=== PATIENT | male | born 1960 | race Caucasian/White ===

== ENCOUNTER 2017-02-19 09:15 | Emergency (ER) | payer MEDICARE, OTHER ==
[2017-02-19] MEDS ORDERED: SODIUM CHLORIDE 0.9% 500 ML IV ONE (09:27)
[2017-02-19] MEDS ORDERED: diphenhydrAMINE 50 MG/ML 1 ML VIAL IVP STA (09:27)
[2017-02-19] MEDS ORDERED: ONDANSETRON 4 MG/2 ML VIAL IVP STA (09:27)
[2017-02-19] MEDS ORDERED: KETOROLAC 30 MG/ML 1 ML VIAL IVP STA (09:27)
--- NOTE | 2017-02-19 09:50 | ED ---
General Adult HPI - General Chief complaint: Headache Stated complaint: headache Time Seen by Provider: 02/19/17 09:21 Source: patient, RN notes reviewed Mode of arrival: wheelchair Limitations: no limitations - History of Present Illness Initial comments: 56-year-old male presents emergency Department chief complaint severe headache 3 days. Patient states she's been having ongoing headache over the last 3 years worse does not 3 last 2 days. He states his right sided complete visit behind his right eye. Denies any visual changes. Denies any pain with ocular movements. Patient states she is photophobic and has some nausea no vomiting no diarrhea no constipation or fevers no chills. Patient states she also has slight cough and right-sided chest wall pain. Patient has no palpitations. Denies any focal weakness. Patient denies any neck pain or neck stiffness. - Related Data Home Medications Medication Instructions Recorded Confirmed Albuterol Nebulized [Ventolin 2.5 mg INHALATION RT-TID PRN 11/21/15 07/05/16 Nebulized] Allopurinol [Zyloprim] 100 mg PO DAILY 11/21/15 07/05/16 Allopurinol [Zyloprim] 300 mg PO DAILY 11/21/15 07/05/16 Aspirin EC [Ecotrin] 81 mg PO DAILY 11/21/15 07/05/16 Atenolol [Tenormin] 100 mg PO DAILY 11/21/15 07/05/16 Cholecalciferol [Vitamin D3] 1,000 unit PO DAILY 11/21/15 07/05/16 Furosemide [Lasix] 40 mg PO DAILY 11/21/15 07/05/16 HYDROcodone/APAP 10-325MG [[place] 1 tab PO Q4HR PRN 11/21/15 07/05/16 10-325] Nitroglycerin Sl Tabs [Nitrostat] 0.4 mg SUBLINGUAL Q5M PRN 11/21/15 07/05/16 hydrALAZINE HCL [Apresoline] 50 mg PO BID 11/21/15 07/05/16 Cyclobenzaprine [Flexeril] 10 mg PO HS 02/06/16 07/05/16 clonazePAM [KlonoPIN] 1 mg PO BID 02/06/16 07/05/16 oxyCODONE HCL 40 mg PO Q8H 02/06/16 07/05/16 Previous Rx's Medication Instructions Recorded Famotidine [Pepcid] 20 mg PO BID #20 tablet 02/06/16 diphenhydrAMINE [Benadryl] 1 - 2 tab PO Q6HR PRN #30 capsule 02/06/16 Butalb/APAP/Caff 50-325-40Mg 1 tab PO Q4H PRN #10 tablet 02/19/17 [Fioricet 50-325-40] Allergies Allergy/AdvReac Type Severity Reaction Status Date / Time No Known Allergies Allergy Verified 02/19/17 09:20 Review of Systems ROS Statement: Those systems with pertinent positive or pertinent negative responses have been documented in the HPI. ROS Other: All systems not noted in ROS Statement are negative. Past Medical History Past Medical History: Chest Pain / Angina, COPD, GERD/Reflux, Hypertension, Myocardial Infarction ([place]), Osteoarthritis (OA) Additional Past Medical History / Comment(s): HX OF HEPATITIS A, CHRONIC PAIN, GOUT, STATES KIDNEYS SHUT DOWN X2 WHEN SICK. Last Myocardial Infarction Date:: ?1999 History of Any Multi-Drug Resistant Organisms: MRSA Date of last positivie culture/infection: 12/2015 MDRO Source:: THERESA LEG Past Surgical History: Heart Catheterization With Stent, Hernia Repair, Orthopedic Surgery Additional Past Surgical History / Comment(s): SHOULDER SX, HERNIA ( A CHILD) , CATARACTS , PAIN CLINIC PROCEDURES. Past Anesthesia/Blood Transfusion Reactions: No Reported Reaction Date of Last Stent Placement:: 1999? Past Psychological History: No Psychological Hx Reported Smoking Status: Former smoker Past Alcohol Use History: Occasional Past Drug Use History: None Reported - Past Family History Mother Family Medical History: Cancer, Myocardial Infarction ([place]) Father Family Medical History: Myocardial Infarction ([place]) Sister(s) Family Medical History: Cancer Additional Family Medical History / Comment(s): SISTERS X2 General Exam Limitations: no limitations General appearance: alert, in no apparent distress Head exam: Present: atraumatic, normocephalic, normal inspection Eye exam: Present: normal appearance, PERRL, EOMI. Absent: scleral icterus, conjunctival injection, periorbital swelling, other (Abrasion noted on the right upper periorbital on the medial aspect) Pupils: Present: other (Wood's lamp and diarrhea used to evaluate the right eye there is no foreign body no abrasions) Expanded Pupils: Regular, Round: Bilateral Sclera/Conjunctival: Normal Inspection: Bilateral Anterior chamber: Normal Inspection: Bilateral IOP (R) in mmH IOP (L) in mmH IOP measured with: [employer] ENT exam: Present: normal exam, normal oropharynx, mucous membranes moist, TM's normal bilaterally, normal external ear exam Neck exam: Present: normal inspection, full ROM. Absent: tenderness, meningismus, lymphadenopathy Respiratory exam: Present: normal lung sounds bilaterally. Absent: respiratory distress, wheezes, rales, rhonchi, stridor Cardiovascular Exam: Present: regular rate, normal rhythm, normal heart sounds. Absent: systolic murmur, diastolic murmur, rubs, gallop, clicks Neurological exam: Present: alert, oriented X3, CN II-XII intact, reflexes normal. Absent: motor sensory deficit Skin exam: Present: warm, dry, intact, normal color. Absent: rash Course Vital Signs 02/19/17 09:17 Temperature 97.3 F L Pulse Rate 61 Respiratory 18 Rate Blood Pressure 182/85 O2 Sat by Pulse 98 Oximetry EKG Findings - EKG Comments: EKG Findings:: EKG 9:35 sinus bradycardia with a rate of 59 [place] interval 164 QRS duration 106 QT/QTC 432/427 Medical Decision Making - Medical Decision Making 56-year-old male presented for multiple complaints. Primary complaint of headache that has been crying for 3 years worse last [address] does not show an acute changes. Patient came of pressure behind his right eye and there is no evidence of abrasions or increased intraocular pressure/glaucoma. Patient may be having a migraine headache will follow-up neurology. Patient also complained of chest wall pain which is slightly reproducible there is no evidence of PE or any cardiac problems at this time. Patient will be discharged with close follow-up - Lab Data Result diagrams: 02/19/17 09:43 02/19/17 09:43 Lab Results 02/19/17 02/19/17 02/19/17 Range/Units 09:43 09:43 09:43 WBC 7.2 (3.8-10.6) k/uL RBC 4.27 L (4.30-5.90) m/uL Hgb 13.9 (13.0-17.5) gm/dL Hct 41.0 (39.0-53.0) % MCV 96.0 (80.0-100.0) fL MCH 32.6 (25.0-35.0) pg MCHC 34.0 (31.0-37.0) g/dL RDW 14.3 (11.5-15.5) % Plt Count 234 (150-450) k/uL Neutrophils % 53 % Lymphocytes % 38 % Monocytes % 4 % Eosinophils % 2 % Basophils % 1 % Neutrophils # 3.8 (1.3-7.7) k/uL Lymphocytes # 2.7 (1.0-4.8) k/uL Monocytes # 0.3 (0-1.0) k/uL Eosinophils # 0.2 (0-0.7) k/uL Basophils # 0.0 (0-0.2) k/uL Sodium 139 (137-145) mmol/L Potassium 3.7 (3.5-5.1) mmol/L Chloride 104 (98-107) mmol/L Carbon Dioxide 28 (22-30) mmol/L Anion Gap 7 mmol/L BUN 5 L (9-20) mg/dL Creatinine 0.68 (0.66-1.25) mg/dL Est GFR (MDRD) Af Amer >60 (>60 ml/min/1.73 sqM) Est GFR (MDRD) Non-Af >60 (>60 ml/min/1.73 sqM) Glucose 110 H (74-99) mg/dL Calcium 8.7 (8.4-10.2) mg/dL Total Bilirubin 0.3 (0.2-1.3) mg/dL AST 18 (17-59) U/L ALT 28 (21-72) U/L Alkaline Phosphatase 75 (38-126) U/L Troponin I <0.012 (0.000-0.034) ng/mL Total Protein 6.2 L (6.3-8.2) g/dL Albumin 3.5 (3.5-5.0) g/dL Disposition Clinical Impression: Migraine, Chest wall pain Disposition: HOME SELF-CARE Condition: Stable Instructions: Acute Headache (ED), Costochondritis (ED) Additional Instructions: Please return to the Emergency Department if symptoms worsen or any other concerns. Prescriptions: Butalb/APAP/Caff 50-325-40Mg [Fioricet 50-325-40] 1 tab PO Q4H PRN #10 tablet PRN Reason: Headache Referrals: Des Prince MD [Primary Care Provider] - 1-2 days Rubina Hannon MD [STAFF PHYSICIAN] - 1-2 days Time of Disposition: 11:17
--- NOTE | 2017-02-19 10:01 | CT ---
EXAMINATION TYPE: CT brain wo con DATE OF EXAM: 02/19/2017 COMPARISON: 12/10/2013 HISTORY: Severe headache CT DLP: [address] of the brain was performed. The ventricles, basal cisterns and sulci overlying the cerebral convexities demonstrate mild enlargem ent. There is no evidence for intracranial hemorrhage or sulcal effacement. There is decreased attenuation about the periventricular white matter and deep white matter of both c erebral hemispheres, compatible with chronic small vessel ischemia. Differential diagnosis does inclu de demyelination. No mass effects are seen.No midline shift. Osseous calvarium is intact. If symptoms persist consider MRI. IMPRESSION: 1. Age related atrophic and chronic small vessel ischemic change without acute intracranial process s een at this time.
[2017-02-19 10:03] LABS: Basophils % (A) 1 %; CH 32.2; CHCM 33.7; Eosinophils # (A) 0.2 k/uL (0-0.7); Eosinophils % (A) 2 %; HDW 2.78; HGB 13.9 gm/dL (13.0-17.5); Luc # (Auto) 0.17; Luc % (Auto) 2; Lymphocytes # (A) 2.7 k/uL (1.0-4.8); Lymphocytes % (A) 38 %; MCH 32.6 pg (25.0-35.0); Mean Platelet Volume 8.9; Monocytes # (A) 0.3 k/uL (0-1.0); Monocytes % (A) 4 %; Neutrophils # (A) 3.8 k/uL (1.3-7.7); Neutrophils % (A) 53 %; RBC 4.27 m/uL (4.30-5.90); RDW 14.3 % (11.5-15.5); WBC 7.2 k/uL (3.8-10.6); WBC (Perox) 6.77
[2017-02-19 10:07] LABS: ALT 28 U/L (21-72); AST 18 U/L (17-59); Alkaline Phosphatase 75 U/L (38-126); Anion Gap 7 mmol/L; Blood Urea Nitrogen 5 mg/dL (9-20); Calcium 8.7 mg/dL (8.4-10.2); Carbon Dioxide 28 mmol/L (22-30); Chloride 104 mmol/L (98-107); Glucose 110 mg/dL (74-99); Non-African American GFR(MDRD) >60 (>60 ml/min/1.73 sqM); Potassium 3.7 mmol/L (3.5-5.1); Sodium 139 mmol/L (137-145); Total Bilirubin 0.3 mg/dL (0.2-1.3); Total Protein 6.2 g/dL (6.3-8.2)
--- NOTE | 2017-02-19 10:12 | XR ---
EXAMINATION TYPE: XR chest 2V DATE OF EXAM: 02/19/2017 COMPARISON: Prior chest x-ray 11/23/2015 HISTORY: Headache, pain TECHNIQUE: Frontal and lateral views of the chest are obtained. FINDINGS: There is no focal air space opacity, pleural effusion, or pneumothorax seen. The cardiac silhouette size is stable. Interval removal of patient's right jugular central venous catheter. There are overlying cardiac leads. The osseous structures are intact. IMPRESSION: No acute cardiopulmonary process.
[2017-02-19] MEDS ORDERED: RX INFO: IV CONTRAST WAS GIVEN 1 EACH MISC MISCELLANE PRN (10:27)
--- NOTE | 2017-02-19 11:11 | CT ---
EXAMINATION TYPE: CT chest angio for PE DATE OF EXAM: 02/19/2017 COMPARISON: NONE HISTORY: Chest pains and trouble breathing CT DLP: 397.8 mGycm CONTRAST: CT chest with contrast and 3D reconstruction with MIP imaging is performed with IV Contrast, patient injected with 100 mL of Omnipaque 300. Contrast-enhanced CT of the chest was performed through the course of the pulmonary arteries with frantz g and mediastinal window settings submitted. 3D reconstruction with MIP imaging was also performed. PULMONARY ARTERIES: The pulmonary arteries and their major tributaries are patent. I do not see isaias dence for sizable filling defect to suggest pulmonary embolic process. LUNGS: The lungs are clear and free of infiltrate. No evidence for atelectasis. No pulmonary nodule or mass is detected. No pleural effusion. MEDIASTINUM: Thoracic aorta is of normal caliber . The heart is not enlarged. No evidence for media stinal mass. No mediastinal lymph nodes greater than 1cm. HILAR STRUCTURES: No evidence for mass. No hilar lymph nodes greater than 1 cm. UPPER ABDOMEN: No significant abnormality is seen. IMPRESSION: 1. No evidence for Pulmonary embolism at this time.
[2017-02-19 11:29] VITALS: TEMP 97.7
[2017-02-19 11:53] VITALS: BP 144/67; PULSE 55; RESP 17
== END 2017-02-19 11:50 | disposition home or self-care (01) ==
LOC: EC 09:15
DX: G43.909 Migraine, unspecified, not intractable, without status migrainosus (principal); R07.89 Other chest pain; I10 Essential (primary) hypertension; M19.90 Unspecified osteoarthritis, unspecified site; M10.9 Gout, unspecified; Z87.891 Personal history of nicotine dependence; Z95.5 Presence of coronary angioplasty implant and graft; Z79.891 Long term (current) use of opiate analgesic; Z79.82 Long term (current) use of aspirin; Z79.899 Other long term (current) drug therapy
CPT/HCPCS: 36415; 93005; 80053; 84484; 85025; 71020; 70450; 71275; 99284; 96374; 96375 ×2; 96361; J1200; J2405; J1885; Q9967

== ENCOUNTER 2017-03-25 13:23 | Emergency (ER) | payer MEDICARE, OTHER ==
[2017-03-25 13:39] VITALS: BP 123/60; PULSE 55; RESP 18; TEMP 97.9
--- NOTE | 2017-03-25 14:05 | ED ---
General Adult HPI - General Chief complaint: Extremity Injury, Lower Stated complaint: Ankle Injury Time Seen by Provider: 03/25/17 13:40 Source: patient, RN notes reviewed Mode of arrival: wheelchair Limitations: no limitations - History of Present Illness Initial comments: 56 yo male presents to the ER with cc of left ankle pain after a fall on . He states he went for an xray that was positive so he came here for a splint. he states he was given follow up to ortho but he would liekt o schedule his own appointment. He states he has a cane at home he can walk with. he denies hell pain. he states it is swollen and tender over the outside. patient denies any other injury from the incident. Patient denies any recent fever, chills, shortness of breath, chest pain, back pain, abdominal pain, nausea vomiting, numbness or tingling, dysuria or hematuria, constipation or diarrhea, headaches or visual changes, or any other current symptoms. - Related Data Home Medications Medication Instructions Recorded Confirmed Albuterol Nebulized [Ventolin 2.5 mg INHALATION RT-TID PRN 11/21/15 07/05/16 Nebulized] Allopurinol [Zyloprim] 100 mg PO DAILY 11/21/15 07/05/16 Allopurinol [Zyloprim] 300 mg PO DAILY 11/21/15 07/05/16 Aspirin EC [Ecotrin] 81 mg PO DAILY 11/21/15 07/05/16 Atenolol [Tenormin] 100 mg PO DAILY 11/21/15 07/05/16 Cholecalciferol [Vitamin D3] 1,000 unit PO DAILY 11/21/15 07/05/16 Furosemide [Lasix] 40 mg PO DAILY 11/21/15 07/05/16 HYDROcodone/APAP 10-325MG [[place] 1 tab PO Q4HR PRN 11/21/15 07/05/16 10-325] Nitroglycerin Sl Tabs [Nitrostat] 0.4 mg SUBLINGUAL Q5M PRN 11/21/15 07/05/16 hydrALAZINE HCL [Apresoline] 50 mg PO BID 11/21/15 07/05/16 Cyclobenzaprine [Flexeril] 10 mg PO HS 02/06/16 07/05/16 clonazePAM [KlonoPIN] 1 mg PO BID 02/06/16 07/05/16 oxyCODONE HCL 40 mg PO Q8H 02/06/16 07/05/16 Previous Rx's Medication Instructions Recorded Famotidine [Pepcid] 20 mg PO BID #20 tablet 02/06/16 diphenhydrAMINE [Benadryl] 1 - 2 tab PO Q6HR PRN #30 capsule 02/06/16 Butalb/APAP/Caff 50-325-40Mg 1 tab PO Q4H PRN #10 tablet 02/19/17 [Fioricet 50-325-40] Allergies Allergy/AdvReac Type Severity Reaction Status Date / Time No Known Allergies Allergy Verified 03/25/17 13:39 Review of Systems ROS Statement: Those systems with pertinent positive or pertinent negative responses have been documented in the HPI. ROS Other: All systems not noted in ROS Statement are negative. Past Medical History Past Medical History: Chest Pain / Angina, COPD, GERD/Reflux, Hypertension, Myocardial Infarction ([place]), Osteoarthritis ([place]) Additional Past Medical History / Comment(s): HX OF HEPATITIS A, CHRONIC PAIN, GOUT, STATES KIDNEYS SHUT DOWN X2 WHEN SICK. Last Myocardial Infarction Date:: ?1999 History of Any Multi-Drug Resistant Organisms: MRSA Date of last positivie culture/infection: 12/2015 MDRO Source:: THERESA LEG Past Surgical History: Heart Catheterization With Stent, Hernia Repair, Orthopedic Surgery Additional Past Surgical History / Comment(s): SHOULDER SX, HERNIA ( A CHILD) , CATARACTS , PAIN CLINIC PROCEDURES. Past Anesthesia/Blood Transfusion Reactions: No Reported Reaction Date of Last Stent Placement:: 1999? Past Psychological History: No Psychological Hx Reported Smoking Status: Former smoker Past Alcohol Use History: Occasional Past Drug Use History: None Reported - Past Family History Mother Family Medical History: Cancer, Myocardial Infarction ([place]) Father Family Medical History: Myocardial Infarction ([place]) Sister(s) Family Medical History: Cancer Additional Family Medical History / Comment(s): SISTERS X2 General Exam - General Exam Comments Initial Comments: General: The patient is awake and alert, in no distress, and does not appear acutely ill. Neck: The neck is supple, there is no tenderness or JVD. Cardiovascular: There is a regular rate and rhythm. No murmur, rub or gallop is appreciated. Respiratory: Lungs are clear to auscultation, respirations are non-labored, breath sounds are equal. No wheezes, stridor, rales, or rhonchi. Musculoskeletal: sensation intact with 2+ pulses throughout left lower extremity. full range of motion of ankle and knee. no proximal tib fib tenderness. swelling and pain over lateral malleolus. no calcaneal tenderness or tenderness throughout the foot. Neurological: CN II-XII intact, There are no obvious motor or sensory deficits. Coordination appears grossly intact. Speech is normal. Skin: Skin is warm and dry and no rashes or lesions are noted. Psychiatric: Normal mood and affect. Limitations: no limitations Course Vital Signs 03/25/17 13:36 Temperature 97.9 F Pulse Rate 55 L Respiratory 18 Rate Blood Pressure 123/60 O2 Sat by Pulse 99 Oximetry Procedures - Orthopedic Splinting/Casting Injury #1 Side: left Lower Extremity Injury Location: ankle Lower Extremity Immobilizer: stirrup splint (short leg) Medical Decision Making - Medical Decision Making 56 yo male presents with left ankle fracture. he was placed in a splint her after reviewing outpatient xrays. we discussed care follow up and return parameters. patient in agreement with plan all questions answered. patient will be discharge. - Radiology Data Radiology results: report reviewed, image reviewed Disposition Clinical Impression: Fracture of lateral malleolus of left ankle Disposition: HOME SELF-CARE Condition: Stable Instructions: Ankle Fracture (ED) Additional Instructions: Please use medication as discussed. Please follow up with family doctor if symptoms have not improved over the next two days. Please return to the emergency room if your symptoms increase or worsen or for any other concerns. Referrals: Des Prince MD [Primary Care Provider] - 1-2 days Scar Almonte MD [STAFF PHYSICIAN] - 1-2 days Time of Disposition: 14:05
== END 2017-03-25 14:17 | disposition home or self-care (01) ==
LOC: EC 13:23
DX: S82.62XA Displaced fracture of lateral malleolus of left fibula, initial encounter for closed fracture (principal); I10 Essential (primary) hypertension; G89.29 Other chronic pain; I25.2 Old myocardial infarction; Z87.891 Personal history of nicotine dependence; Z79.82 Long term (current) use of aspirin; Z79.891 Long term (current) use of opiate analgesic; Z79.899 Other long term (current) drug therapy; Z86.79 Personal history of other diseases of the circulatory system; W19.XXXA Unspecified fall, initial encounter
CPT/HCPCS: 29515; 99283

== ENCOUNTER → 2017-03-25 | Outpatient (CLI) | payer MEDICARE, OTHER ==
--- NOTE | 2017-03-25 12:36 | XR ---
EXAMINATION TYPE: XR ankle complete LT DATE OF EXAM: 03/25/2017 COMPARISON: NONE HISTORY: Pain FINDINGS: Three views of the ankle demonstrate the ankle mortise to be intact and symmetric. There is soft tiss ue edema and mildly displaced fracture involving the lateral malleolus. The lateral view there is a b genie density along the base of the anterior calcaneus which could represent additional chip fracture. IMPRESSION: 1. Mildly displaced lateral malleolar fracture. 2. Question of a additional chip fracture near the base of the calcaneus along the plantar surface an teriorly. This is seen on only one view. Correlate with point tenderness.
== END | disposition home or self-care (01) ==
LOC: RADXRMAIN 12:15
PROVIDERS: ATTEND Family Medicine
DX: S82.62XA Displaced fracture of lateral malleolus of left fibula, initial encounter for closed fracture (principal)

== ENCOUNTER → 2017-04-04 | Outpatient (CLI) | payer MEDICARE, OTHER ==
--- NOTE | 2017-04-04 16:09 | MR ---
EXAMINATION TYPE: MR brain wo con DATE OF EXAM: 04/04/2017 3:46 PM. COMPARISON: None. HISTORY: Headache Technique: Multiplanar, multiecho imaging of the brain was obtained without intravenous contrast. FINDINGS: Midline structures are unremarkable. There is a normal craniocervical junction. Echoplanar diffusion imaging is normal. There are normal vascular flow voids. The orbits are normal. There is no evidence of a CP angle mass lesion. There are several 2 to 5 mm high signal FLAIR lesions in the left frontal region there are scattered high signal lesions elsewhere throughout the brain. T here is no mass effect, midline shift or intracranial blood. There is a 2 cm retention cyst or polyp involving the left maxillary sinus. IMPRESSION: 1. NO ACUTE INTRACRANIAL ABNORMALITY. 2. RETENTION CYST OR POLYP, LEFT MAXILLARY ANTRUM. 3. SCATTERED CYSTS, TINY HIGH SIGNAL FLAIR LESIONS THROUGHOUT THE DEEP WHITE MATTER TRACTS OF THE CER EBRAL HEMISPHERES. THIS IS LIKELY ON THE BASIS OF SMALL VESSEL DISEASE. A DIFFERENTIAL DIAGNOSIS INCL UDES DEMYELINATION, HYPERTENSION, MIGRAINE HEADACHES AND LYME'S DISEASE.
== END | disposition home or self-care (01) ==
LOC: RADMRIMAIN 15:05
PROVIDERS: ATTEND Family Medicine
DX: G93.0 Cerebral cysts (principal); R90.89 Other abnormal findings on diagnostic imaging of central nervous system; R51 Headache
CPT/HCPCS: 70551

== ENCOUNTER 2017-04-09 11:50 | Emergency (ER) | payer MEDICARE, OTHER | END 2017-04-09 12:37 | disposition home or self-care (01) | LOC: EC 11:50 | DX: R21 Rash and other nonspecific skin eruption (principal); Z87.891 Personal history of nicotine dependence | CPT/HCPCS: 99282 ==

== ENCOUNTER 2017-04-21 21:09 | Inpatient (IN) | payer MEDICARE, OTHER ==
[2017-04-21] MEDS ORDERED: SODIUM CHLORIDE 0.9% 500 ML IV STA ×2 (21:41→23:33)
[2017-04-21] MEDS ORDERED: HYDROmorphone 1 MG/ML 1 ML SYRINGE IVP STA ×2 (21:41→23:28)
[2017-04-21] MEDS ORDERED: ONDANSETRON 4 MG/2 ML VIAL IVP STA (21:41)
[2017-04-21 22:24] LABS: Appearance,Urine Clear (Clear); Bilirubin,Urine Negative (Negative); Glucose,Urine (UA) Negative (Negative); Ketones,Urine Negative (Negative); Leukocyte Esterase,Urine Negative (Negative); Nitrite,Urine Negative (Negative); PH, Urine 5.5 (5.0-8.0); Protein,Urine Negative (Negative); Specific Gravity,Urine 1.015 (1.001-1.035); UA Billing (MACRO vs. MICRO) CHEM; Urobilinogen,Urine <2.0 mg/dL (<2.0)
[2017-04-21 22:31] LABS: Basophils % (A) 1 %; CH 31.1; CHCM 32.1; Eosinophils # (A) 0.2 k/uL (0-0.7); Eosinophils % (A) 2 %; HCT 42.2 % (39.0-53.0); HDW 2.48; Luc # (Auto) 0.05; Luc % (Auto) 1; Lymphocytes # (A) 1.9 k/uL (1.0-4.8); Lymphocytes % (A) 22 %; MCHC 30.8 g/dL (31.0-37.0); MCV 97.4 fL (80.0-100.0); Mean Platelet Volume 8.6; Monocytes # (A) 0.3 k/uL (0-1.0); Monocytes % (A) 3 %; Neutrophils # (A) 6.2 k/uL (1.3-7.7); Neutrophils % (A) 71 %; RBC 4.33 m/uL (4.30-5.90); RDW 14.3 % (11.5-15.5); WBC 8.6 k/uL (3.8-10.6); WBC (Perox) 9.31
[2017-04-21 22:41] LABS: ALT 39 U/L (21-72); AST 17 U/L (17-59); Alkaline Phosphatase 100 U/L (38-126); Anion Gap 9 mmol/L; Blood Urea Nitrogen 11 mg/dL (9-20); Calcium 8.7 mg/dL (8.4-10.2); Carbon Dioxide 23 mmol/L (22-30); Chloride 108 mmol/L (98-107); Glucose 89 mg/dL (74-99); Non-African American GFR(MDRD) >60 (>60 ml/min/1.73 sqM); Potassium 4.5 mmol/L (3.5-5.1); Sodium 140 mmol/L (137-145); Total Bilirubin 0.5 mg/dL (0.2-1.3); Total Protein 6.2 g/dL (6.3-8.2)
--- NOTE | 2017-04-21 22:51 | XR ---
EXAM: XR Abdomen, 1 View. CLINICAL HISTORY: Reason: abdominal pain TECHNIQUE: Frontal supine view of the abdomen/pelvis. COMPARISON: No relevant prior studies available. FINDINGS: Gastrointestinal tract: Unremarkable. No dilation. Bones: Unremarkable. No acute fracture. IMPRESSION: Normal abdomen and pelvis.
[2017-04-21 22:57] LABS: Creatine Kinase 21 U/L (55-170)
[2017-04-21 23:09] LABS: Creatine Kinase MB 0.4 ng/mL (0.0-2.4); Troponin I <0.012 ng/mL (0.000-0.034)
[2017-04-21] MEDS ORDERED: RX INFO: IV CONTRAST WAS GIVEN 1 EACH MISC MISCELLANE PRN (23:26)
--- NOTE | 2017-04-21 23:45 | ED ---
Abdominal Pain HPI - General Source: patient, EMS Mode of arrival: EMS Limitations: no limitations <Simona Roberto - Last Filed: 04/22/17 04:28> <Chris Fitch - Last Filed: 05/02/17 09:16> - General Chief Complaint: Abdominal Pain Stated Complaint: ABD PAIN Time Seen by Provider: 04/21/17 21:15 - History of Present Illness Initial Comments: 56-year-old male patient presented to emergency department today for complaints of upper abdominal pain. States he has had this pain for the last 2 days however it is worsened today. Patient states the pain is present in his upper abdomen and radiates through to his back. He states that he has never had pain like this before. Patient states that he has had a bowel movement for the last 2 days which is unusual for him. He states he does take chronic pain medication for lower back pain. He states the pain is sharp and severe. He states he does feel short of breath with this. He denies any nausea or vomiting. Denies any diarrhea. He is currently rating it as a 10 out of 10 on the pain scale. Patient does report blood in his stool. He states it is bright red, he is unable to quantify the amount. He states that this is been happening on and off for the last couple of months. Patient does report a past medical history significant for diverticulitis. Denies any falls or injuries. Patient denies any recent rash, fever, chills, shortness breath, chest pain, abdominal pain, nausea, vomiting, diarrhea, constipation, back pain, numbness, tingling, dizziness, weakness, hematuria, dysuria, urinary urgency, urinary frequency, headache, visual changes, or any other complaints. (Simona Roberto) - Related Data Home Medications Medication Instructions Recorded Confirmed Aspirin EC [Ecotrin Low Dose] 81 mg PO DAILY 11/21/15 04/21/17 Furosemide [Lasix] 40 mg PO DAILY 11/21/15 04/21/17 Nitroglycerin Sl Tabs [Nitrostat] 0.4 mg SUBLINGUAL Q5M PRN 11/21/15 04/21/17 hydrALAZINE HCL [Apresoline] 50 mg PO BID 11/21/15 04/21/17 clonazePAM [KlonoPIN] 1 mg PO BID 02/06/16 04/21/17 oxyCODONE HCL 40 mg PO Q6H 02/06/16 04/21/17 Albuterol Inhaler [Ventolin Hfa 1 - 2 puff INHALATION RT-Q6H PRN 04/21/17 Inhaler] Atenolol [Tenormin] 100 mg PO DAILY 04/21/17 04/21/17 Atorvastatin [Lipitor] 80 mg PO HS 04/21/17 04/21/17 Ibuprofen [Motrin] 800 mg PO BID 04/21/17 04/21/17 Previous Rx's Medication Instructions Recorded Amoxicillin/Potassium Clav 1 tab PO Q12HR #10 tab 04/26/17 [Augmentin 875-125 Tablet] Sucralfate [Carafate] 1 gm PO AC-TID #90 tab 04/26/17 Allergies Allergy/AdvReac Type Severity Reaction Status Date / Time No Known Allergies Allergy Verified 04/21/17 21:49 Review of Systems ROS Other: All systems not noted in ROS Statement are negative. <Simona Roberto - Last Filed: 04/22/17 04:28> ROS Other: All systems not noted in ROS Statement are negative. <Chris Fitch - Last Filed: 05/02/17 09:16> ROS Statement: Those systems with pertinent positive or pertinent negative responses have been documented in the HPI. Past Medical History Past Medical History: Chest Pain / Angina, COPD, GERD/Reflux, Hypertension, Myocardial Infarction ([place]), Osteoarthritis (OA) Additional Past Medical History / Comment(s): HX OF HEPATITIS A, CHRONIC PAIN, GOUT, STATES KIDNEYS SHUT DOWN X2 WHEN SICK. Last Myocardial Infarction Date:: ?1999 History of Any Multi-Drug Resistant Organisms: MRSA Date of last positivie culture/infection: 12/2015 MDRO Source:: THERESA LEG Past Surgical History: Heart Catheterization With Stent, Hernia Repair, Orthopedic Surgery Additional Past Surgical History / Comment(s): SHOULDER SX, HERNIA ( A CHILD) , CATARACTS , PAIN CLINIC PROCEDURES. Past Anesthesia/Blood Transfusion Reactions: No Reported Reaction Date of Last Stent Placement:: 1999? Past Psychological History: No Psychological Hx Reported Smoking Status: Former smoker Past Alcohol Use History: Occasional Past Drug Use History: None Reported - Past Family History Mother Family Medical History: Cancer, Myocardial Infarction ([place]) Father Family Medical History: Myocardial Infarction ([place]) Sister(s) Family Medical History: Cancer Additional Family Medical History / Comment(s): SISTERS X2 <Simona Roberto - Last Filed: 04/22/17 04:28> General Exam Limitations: no limitations General appearance: alert, in distress (Moderate distress related to pain. Patient is rolling around on the bed. Moaning out loud.), other (Well-developed , well-nourished adult male patient in moderate distress. Vital signs upon presentation were temperature 99.3F, pulse 74, respirations 16, blood pressure 173/70, pulse ox 96% on room air.) Eye exam: Present: normal appearance, PERRL, EOMI. Absent: scleral icterus, conjunctival injection, periorbital swelling ENT exam: Present: normal exam, normal oropharynx, mucous membranes moist Respiratory exam: Present: wheezes (Scattered expiratory wheezes posteriorly). Absent: respiratory distress, rales, rhonchi, stridor Cardiovascular Exam: Present: regular rate, normal rhythm, normal heart sounds. Absent: systolic murmur, diastolic murmur, rubs, gallop, clicks GI/Abdominal exam: Present: soft, distended, tenderness (Patient reports tenderness in all quadrants.), normal bowel sounds. Absent: guarding, rebound, rigid Back exam: Present: normal inspection. Absent: CVA tenderness (R), CVA tenderness (L) Neurological exam: Present: alert, oriented X3, CN II-XII intact Psychiatric exam: Present: normal affect, normal mood Skin exam: Present: warm, dry, intact, normal color. Absent: rash <Simona Roberto - Last Filed: 04/22/17 04:28> Medical Decision Making - Lab Data Result diagrams: 04/21/17 22:20 04/21/17 22:20 - Radiology Data Radiology results: report reviewed, image reviewed <Simona Roberto - Last Filed: 04/22/17 04:28> - Lab Data Result diagrams: 05/01/17 09:10 05/01/17 09:10 <Chris Fitch - Last Filed: 05/02/17 09:16> - Medical Decision Making 56-year-old male patient presented for evaluation of this abdominal pain. CT of the abdomen and pelvis did show a sigmoid diverticulitis with microperforation. Labs are overall unremarkable, urinalysis was negative. Blood cultures were sent. My attending Dr. Rendon did speak to the surgeon Dr. Giles who accepts patient. Patient will be admitted for further evaluation and monitoring. (Simona Roberto) I saw this patient in conjunction with the physician blacksmith assistant. I performed independent history and physical exam. Agree with case management. (Chris Fitch) - Lab Data Lab Results 04/21/17 04/21/17 04/21/17 Range/Units 22:00 22:20 22:20 WBC 8.6 (3.8-10.6) k/uL RBC 4.33 (4.30-5.90) m/uL Hgb 13.0 (13.0-17.5) gm/dL Hct 42.2 (39.0-53.0) % MCV 97.4 (80.0-100.0) fL MCH 30.0 (25.0-35.0) pg MCHC 30.8 L (31.0-37.0) g/dL RDW 14.3 (11.5-15.5) % Plt Count 178 (150-450) k/uL Neutrophils % 71 % Lymphocytes % 22 % Monocytes % 3 % Eosinophils % 2 % Basophils % 1 % Neutrophils # 6.2 (1.3-7.7) k/uL Lymphocytes # 1.9 (1.0-4.8) k/uL Monocytes # 0.3 (0-1.0) k/uL Eosinophils # 0.2 (0-0.7) k/uL Basophils # 0.0 (0-0.2) k/uL Sodium (137-145) mmol/L Potassium (3.5-5.1) mmol/L Chloride (98-107) mmol/L Carbon Dioxide (22-30) mmol/L Anion Gap mmol/L BUN (9-20) mg/dL Creatinine (0.66-1.25) mg/dL Est GFR (MDRD) Af Amer (>60 ml/min/1.73 sqM) Est GFR (MDRD) Non-Af (>60 ml/min/1.73 sqM) Glucose (74-99) mg/dL Plasma Lactic Acid Joce (0.7-2.0) mmol/L Calcium (8.4-10.2) mg/dL Total Bilirubin (0.2-1.3) mg/dL AST (17-59) U/L ALT (21-72) U/L Alkaline Phosphatase (38-126) U/L Total Creatine Kinase 21 L (55-170) U/L CK-MB (CK-2) 0.4 (0.0-2.4) ng/mL CK-MB (CK-2) Rel Index 1.9 Troponin I <0.012 (0.000-0.034) ng/mL Total Protein (6.3-8.2) g/dL Albumin (3.5-5.0) g/dL Amylase (30-110) U/L Lipase (23-300) U/L Urine Color Yellow Urine Appearance Clear (Clear) Urine pH 5.5 (5.0-8.0) Ur Specific Ringle 1.015 (1.001-1.035) Urine Protein Negative (Negative) Urine Glucose (UA) Negative (Negative) Urine Ketones Negative (Negative) Urine Blood Negative (Negative) Urine Nitrite Negative (Negative) Urine Bilirubin Negative (Negative) Urine Urobilinogen <2.0 (<2.0) mg/dL Ur Leukocyte Esterase Negative (Negative) 04/21/17 04/21/17 04/21/17 Range/Units 22:20 22:20 22:20 WBC (3.8-10.6) k/uL RBC (4.30-5.90) m/uL Hgb (13.0-17.5) gm/dL Hct (39.0-53.0) % MCV (80.0-100.0) fL MCH (25.0-35.0) pg MCHC (31.0-37.0) g/dL RDW (11.5-15.5) % Plt Count (150-450) k/uL Neutrophils % % Lymphocytes % % Monocytes % % Eosinophils % % Basophils % % Neutrophils # (1.3-7.7) k/uL Lymphocytes # (1.0-4.8) k/uL Monocytes # (0-1.0) k/uL Eosinophils # (0-0.7) k/uL Basophils # (0-0.2) k/uL Sodium 140 (137-145) mmol/L Potassium 4.5 (3.5-5.1) mmol/L Chloride 108 H (98-107) mmol/L Carbon Dioxide 23 (22-30) mmol/L Anion Gap 9 mmol/L BUN 11 (9-20) mg/dL Creatinine 0.80 (0.66-1.25) mg/dL Est GFR (MDRD) Af Amer >60 (>60 ml/min/1.73 sqM) Est GFR (MDRD) Non-Af >60 (>60 ml/min/1.73 sqM) Glucose 89 (74-99) mg/dL Plasma Lactic Acid Joce 1.4 (0.7-2.0) mmol/L Calcium 8.7 (8.4-10.2) mg/dL Total Bilirubin 0.5 (0.2-1.3) mg/dL AST 17 (17-59) U/L ALT 39 (21-72) U/L Alkaline Phosphatase 100 (38-126) U/L Total Creatine Kinase (55-170) U/L CK-MB (CK-2) (0.0-2.4) ng/mL CK-MB (CK-2) Rel Index Troponin I (0.000-0.034) ng/mL Total Protein 6.2 L (6.3-8.2) g/dL Albumin 3.4 L (3.5-5.0) g/dL Amylase <30 L (30-110) U/L Lipase 16 L (23-300) U/L Urine Color Urine Appearance (Clear) Urine pH (5.0-8.0) Ur Specific Ringle (1.001-1.035) Urine Protein (Negative) Urine Glucose (UA) (Negative) Urine Ketones (Negative) Urine Blood (Negative) Urine Nitrite (Negative) Urine Bilirubin (Negative) Urine Urobilinogen (<2.0) mg/dL Ur Leukocyte Esterase (Negative) - Radiology Data One view x-ray of the abdomen shows the gastrointestinal tract is unremarkable no dilation. Bones are unremarkable no acute fracture. Impression by Dr. Arnold shows normal abdomen and pelvis. CT of the abdomen and pelvis report was reviewed in its entirety, impression by Dr. Landa shows acute sigmoid diverticulitis with associated microperforation and small foci of free air in the adjacent pericolonic mesentery. No abscess or evidence of intestinal obstruction., Note vascular exam does show diffuse atherosclerotic changes, with suggestion of a small ulcerated plaque or localized chronic dissection posteriorly within the infrarenal abdominal aorta, without evidence of aneurysm. (Simona Roberto) Disposition Decision to Admit Reason: Admit from EC Decision Date: 04/22/17 Decision Time: 04:27 <Simona Roberto - Last Filed: 04/22/17 04:28> <Chris Fitch - Last Filed: 05/02/17 09:16> Clinical Impression: Diverticulitis of colon with perforation Disposition: ADMITTED IP TO THIS [facility] Condition: Serious Addendum entered and electronically signed by Simona Roberto, TIRE CHANGER-C 05:38: EKG obtained at 2208 shows normal sinus rhythm with ventricular rate of 66, when necessary interval 158, QR voodoo 90, QT 370, QTC 387. No evidence of ST elevation or depression.
--- NOTE | 2017-04-22 01:30 | CT ---
EXAM: CT Abdomen and Pelvis With Intravenous Contrast CLINICAL HISTORY: Reason: Abdominal pain. TECHNIQUE: Axial computed tomography images of the abdomen and pelvis with intravenous contrast. CTDI is 32.20 mGy and DLP is 1339 mGy-cm. This CT exam was performed using one or more of the following dose reduction techniques: automated exposure control, adjustment of the mA and/or kV according to patient size, and/or use of iterative reconstruction technique. COMPARISON: No relevant prior studies available. FINDINGS: Lower thorax: Dependent changes at the lung bases, with diffuse coronary artery calcification. ABDOMEN: Liver: Unremarkable. No mass. Gallbladder and bile ducts: Unremarkable. No calcified stones. Pancreas: Generalized pancreatic parenchymal atrophy, without ductal dilatation or focal pancreatic lesion seen. Spleen: Unremarkable. No splenomegaly. Adrenals: Unremarkable. No mass. Kidneys and ureters: Unremarkable. No stone or hydronephrosis. Stomach and bowel: Colonic diverticulosis throughout. There is a dominant diverticulum along the superior aspect of the proximal sigmoid, with surrounding inflammatory changes and just superior to which there are few tiny foci of free air in the pericolonic mesentery, as best depicted on sagittal image 64. No associated abscess or intestinal obstruction. Appendix: No findings to suggest acute appendicitis. PELVIS: Bladder: Unremarkable. No mass. Reproductive: Unremarkable as visualized. ABDOMEN and PELVIS: Intraperitoneal space: See above. Bones/joints: Degenerative changes. No acute fracture. Soft tissues: Unremarkable. Vasculature: Diffuse atherosclerotic changes, with suggestion of a small ulcerated plaque or localized chronic dissection posteriorly within the infrarenal abdominal aorta, without evidence of aneurysm. Lymph nodes: No adenopathy is seen, by CT size criteria. IMPRESSION: 1. Acute sigmoid diverticulitis with associated microperforation and small foci of free air in the adjacent pericolonic mesentery. No abscess or evidence of intestinal obstruction. 2. Additional findings as above. [employer] 04/22/17 01:34 Call Doctor Regarding Bowel Perforation with Free Air, called SHANNEN Urrutia on 04/22 01:33 (-04:00)
[2017-04-22] MEDS ORDERED: HYDROmorphone 1 MG/ML 1 ML SYRINGE IVP STA ×3 (02:37→14:22)
[2017-04-22] MEDS ORDERED: ONDANSETRON 4 MG/2 ML VIAL IVP PRN (04:06)
[2017-04-22] MEDS ORDERED: NALOXONE 0.4 MG/ML 1 ML VIAL IV PRN ×2 (04:06→18:00)
[2017-04-22] MEDS ORDERED: ALBUTEROL NEBULIZED 2.5 MG/3 ML INHALATION PRN (04:10)
[2017-04-22] MEDS: HYDROmorphone 1 MG/ML 1 ML SYRINGE IV PRN ×2 (05:46→07:59)
[2017-04-22] MEDS: FAMOTIDINE 20 MG/2 ML VIAL IV SCH ×2 (07:59→20:40)
[2017-04-22] MEDS: SODIUM CHLORIDE 0.9% 1,000 ML IV SCH ×2 (08:00→14:00)
[2017-04-22] MEDS ORDERED: HYDROmorphone 2 MG/ML 1 ML SYRINGE IM PRN (08:15)
--- NOTE | 2017-04-22 08:22 | P.HPIM ---
History of Present Illness H&P Date: 04/22/17 Chief Complaint: Left lower quadrant abdominal pain. This is a history and physical on a 56-year-old white male essentially with worsening left lower quadrant pain for the last 3 days. The patient has not been able to tolerate diet appropriately. He has history of previous appendectomy. He has an underlying history of rheumatoid arthritis COPD hyperlipidemia hypertension and history of myocardial infarction in the past. The patient is now admitted for appropriate diverticular disease with possible microperforation secondary to pockets of free air. Surgery is not consulted. We will go ahead and place on empiric antibiotic therapy. Review of Systems Constitutional: Reports fever Eyes: denies blurred vision, denies pain Ears, nose, mouth and throat: Denies headache, Denies sore throat Cardiovascular: Denies chest pain, Denies shortness of breath Respiratory: Denies cough Gastrointestinal: Reports as per HPI, Reports abdominal pain, Reports nausea Musculoskeletal: Denies myalgias Integumentary: Denies pruritus, Denies rash Neurological: Denies numbness, Denies weakness Past Medical History Past Medical History: Chest Pain / Angina, COPD, GERD/Reflux, Hypertension, Myocardial Infarction ([place]), Osteoarthritis ([place]) Additional Past Medical History / Comment(s): HX OF HEPATITIS A, CHRONIC PAIN, GOUT, STATES KIDNEYS SHUT DOWN X2 WHEN SICK. Last Myocardial Infarction Date:: ?1999 History of Any Multi-Drug Resistant Organisms: MRSA Date of last positivie culture/infection: 12/2015 MDRO Source:: THERESA LEG Past Surgical History: Heart Catheterization With Stent, Hernia Repair, Orthopedic Surgery Additional Past Surgical History / Comment(s): SHOULDER SX, HERNIA ( A CHILD) , CATARACTS , PAIN CLINIC PROCEDURES. Past Anesthesia/Blood Transfusion Reactions: No Reported Reaction Date of Last Stent Placement:: 1999? Past Psychological History: No Psychological Hx Reported Smoking Status: Former smoker Past Alcohol Use History: Occasional Additional Past Alcohol Use History / Comment(s): SMOKES 1/2 PPD, SMOKING SINCE AGE 18 Past Drug Use History: None Reported - Past Family History Mother Family Medical History: Cancer, Myocardial Infarction ([place]) Father Family Medical History: Myocardial Infarction ([place]) Sister(s) Family Medical History: Cancer Additional Family Medical History / Comment(s): SISTERS X2 Medications and Allergies Home Medications Medication Instructions Recorded Confirmed Type Aspirin EC [Ecotrin] 81 mg PO DAILY 11/21/15 04/21/17 History Furosemide [Lasix] 40 mg PO DAILY 11/21/15 04/21/17 History Nitroglycerin Sl Tabs [Nitrostat] 0.4 mg SUBLINGUAL Q5M PRN 11/21/15 04/21/17 History hydrALAZINE HCL [Apresoline] 50 mg PO BID 11/21/15 04/21/17 History clonazePAM [KlonoPIN] 1 mg PO BID 02/06/16 04/21/17 History oxyCODONE HCL 40 mg PO Q6H 02/06/16 04/21/17 History Albuterol Inhaler [Ventolin Hfa 1 - 2 puff INHALATION RT-Q6H PRN 04/21/17 History Inhaler] Atenolol [Tenormin] 100 mg PO DAILY 04/21/17 04/21/17 History Atorvastatin [Lipitor] 80 mg PO HS 04/21/17 04/21/17 History Ibuprofen [Motrin] 800 mg PO BID 04/21/17 04/21/17 History Allergies Allergy/AdvReac Type Severity Reaction Status Date / Time No Known Allergies Allergy Verified 04/21/17 21:49 Physical Exam Vitals: Vital Signs Temp Pulse Pulse Resp BP BP Pulse Ox 04/22/17 08:00 98.6 F 70 17 119/65 04/22/17 04:28 71 16 142/64 98 04/22/17 02:41 68 16 135/60 98 04/21/17 23:38 76 16 154/68 100 04/21/17 21:10 99.3 F 74 16 173/70 96 Intake and Output 04/21/17 04/22/17 04/22/17 22:59 06:59 14:59 Intake Total 125 Balance 125 Intake: Intake, IV Titration 125 Amount Sodium Chloride 0.9% 1, 125 000 ml @ 125 mls/hr IV . Q8H [facility] Rx#:[id number] Other: Weight 99.79 kg - Constitutional General appearance: obese - Neck Neck: no lymphadenopathy - Respiratory Respiratory: bilateral: diminished - Cardiovascular Rhythm: regular Heart sounds: normal: S1, S2 - Gastrointestinal General gastrointestinal: tenderness Localized gastrointestinal: tender: LLQ - Integumentary Integumentary: no cellulitis, no rash - Neurologic Neurologic: CNII-XII intact, focal deficits Results CBC & Chem 7: 04/21/17 22:20 04/21/17 22:20 Labs: Abnormal Lab Results - Last 24 Hours (Table) 04/21/17 04/21/17 04/21/17 Range/Units 22:20 22:20 22:20 MCHC 30.8 L (31.0-37.0) g/dL Chloride 108 H (98-107) mmol/L Total Creatine Kinase 21 L (55-170) U/L Total Protein 6.2 L (6.3-8.2) g/dL Albumin 3.4 L (3.5-5.0) g/dL Amylase (30-110) U/L Lipase 16 L (23-300) U/L 04/21/17 Range/Units 22:20 MCHC (31.0-37.0) g/dL Chloride (98-107) mmol/L Total Creatine Kinase (55-170) U/L Total Protein (6.3-8.2) g/dL Albumin (3.5-5.0) g/dL Amylase <30 L (30-110) U/L Lipase (23-300) U/L Assessment and Plan (1) CAD (coronary artery disease) Status: Acute (2) History of myocardial infarction Status: Acute (3) Diverticulitis of colon with perforation Status: Acute Plan: Surgical intervention most likely. Start empiric antibiotic treatment. Otherwise, await surgical consultation. Check EKG for preoperative clearance.
[2017-04-22] MEDS: PIPERACILLIN-TAZOBACTAM 3.375 GM in DEXTROSE/WATER 1 50ML.BAG IVPB SCH ×2 (08:35→20:40)
[2017-04-22] MEDS ORDERED: KETOROLAC 30 MG/ML 1 ML VIAL IVP STA (11:33)
[2017-04-22] MEDS: ASPIRIN 81 MG PO SCH (11:41)
[2017-04-22] MEDS: clonazePAM 1 MG TAB PO SCH ×2 (11:41→20:59)
[2017-04-22] MEDS: FUROSEMIDE 40 MG TAB PO SCH (11:41)
[2017-04-22] MEDS: ATENOLOL 50 MG TAB PO SCH ×2 (11:41→14:22)
[2017-04-22] MEDS: hydrALAZINE HCL 50 MG TAB PO SCH ×2 (11:42→20:59)
[2017-04-22 11:43] VITALS: BMI 33.4
--- NOTE | 2017-04-22 14:20 | P.GSCN ---
History of Present Illness Consult date: 04/22/17 Reason for Consult: Diverticulitis History of present illness: Patient is the hospital with a 3-4 history of progressive left lower quadrant abdominal pain. He came to the hospital last night for evaluation. He has a history of known diverticulitis. He had a CAT scan performed last night which showed diverticulitis involving the sigmoid colon with some pericolonic air pockets. No diffuse free air is seen. Unfortunately the patient states this pain has been increasing gradually since yesterday. He says it is quite severe at this point despite receiving 2 of Dilaudid every few hours. The pain is diffuse in nature he states. He has had episodes of nausea and vomiting. His white blood cell count is surprisingly normal. His heart rate and temperature have been normal. He is on IV antibiotics. He does admit to some recent rectal bleeding. His last colonoscopy was 3-4 years ago. Review of Systems The patient denies any acute changes in vision or hearing, no dysphagia or odynophagia, no chest pain or shortness of breath, no dysuria or hematuria, no headache, no runny nose, no melena, no unexplained weight loss Past Medical History Past Medical History: Chest Pain / Angina, COPD, GERD/Reflux, Hypertension, Myocardial Infarction ([place]), Osteoarthritis (OA) Additional Past Medical History / Comment(s): HX OF HEPATITIS A, CHRONIC PAIN, GOUT, STATES KIDNEYS SHUT DOWN X2 WHEN SICK. Last Myocardial Infarction Date:: ?1999 History of Any Multi-Drug Resistant Organisms: MRSA Year Discovered:: 12/2015 MDRO Source:: [facility] Past Surgical History: Heart Catheterization With Stent, Hernia Repair, Orthopedic Surgery Additional Past Surgical History / Comment(s): SHOULDER SX, HERNIA ( A CHILD) , CATARACTS , PAIN CLINIC PROCEDURES. Past Anesthesia/Blood Transfusion Reactions: No Reported Reaction Date of Last Stent Placement:: 1999? Past Psychological History: No Psychological Hx Reported Smoking Status: Former smoker Past Alcohol Use History: Occasional Additional Past Alcohol Use History / Comment(s): SMOKES 1/2 PPD, SMOKING SINCE AGE 18 Past Drug Use History: None Reported - Past Family History Mother Family Medical History: Cancer, Myocardial Infarction ([place]) Father Family Medical History: Myocardial Infarction ([place]) Sister(s) Family Medical History: Cancer Additional Family Medical History / Comment(s): SISTERS X2 Medications and Allergies Home Medications Medication Instructions Recorded Confirmed Type Aspirin EC [Ecotrin] 81 mg PO DAILY 11/21/15 04/21/17 History Furosemide [Lasix] 40 mg PO DAILY 11/21/15 04/21/17 History Nitroglycerin Sl Tabs [Nitrostat] 0.4 mg SUBLINGUAL Q5M PRN 11/21/15 04/21/17 History hydrALAZINE HCL [Apresoline] 50 mg PO BID 11/21/15 04/21/17 History clonazePAM [KlonoPIN] 1 mg PO BID 02/06/16 04/21/17 History oxyCODONE HCL 40 mg PO Q6H 02/06/16 04/21/17 History Albuterol Inhaler [Ventolin Hfa 1 - 2 puff INHALATION RT-Q6H PRN 04/21/17 History Inhaler] Atenolol [Tenormin] 100 mg PO DAILY 04/21/17 04/21/17 History Atorvastatin [Lipitor] 80 mg PO HS 04/21/17 04/21/17 History Ibuprofen [Motrin] 800 mg PO BID 04/21/17 04/21/17 History Allergies Allergy/AdvReac Type Severity Reaction Status Date / Time No Known Allergies Allergy Verified 04/21/17 21:49 Surgical - Exam Vital Signs Temp Pulse Resp BP Pulse Ox 99.3 F 74 16 173/70 96 04/21/17 21:10 04/21/17 21:10 04/21/17 21:10 04/21/17 21:10 04/21/17 21:10 Physical exam: General: Well-developed, well-nourished and some apparent distress related to his abdominal pain HEENT: Normocephalic, sclerae nonicteric Abdomen: Slightly distended, diffuse tenderness, peritoneal signs are present including both rebound and guarding. Pain most severe in the left lower abdomen Extremities: No edema Neuro: Alert and oriented Results - Labs 04/21/17 22:20 04/21/17 22:20 Abnormal Lab Results - Last 24 Hours (Table) 04/21/17 04/21/17 04/21/17 Range/Units 22:20 22:20 22:20 MCHC 30.8 L (31.0-37.0) g/dL Chloride 108 H (98-107) mmol/L Total Creatine Kinase 21 L (55-170) U/L Total Protein 6.2 L (6.3-8.2) g/dL Albumin 3.4 L (3.5-5.0) g/dL Amylase (30-110) U/L Lipase 16 L (23-300) U/L 04/21/17 Range/Units 22:20 MCHC (31.0-37.0) g/dL Chloride (98-107) mmol/L Total Creatine Kinase (55-170) U/L Total Protein (6.3-8.2) g/dL Albumin (3.5-5.0) g/dL Amylase <30 L (30-110) U/L Lipase (23-300) U/L Diabetes panel 04/21/17 Range/Units 22:20 Sodium 140 (137-145) mmol/L Potassium 4.5 (3.5-5.1) mmol/L Chloride 108 H (98-107) mmol/L Carbon Dioxide 23 (22-30) mmol/L BUN 11 (9-20) mg/dL Creatinine 0.80 (0.66-1.25) mg/dL Glucose 89 (74-99) mg/dL Calcium 8.7 (8.4-10.2) mg/dL AST 17 (17-59) U/L ALT 39 (21-72) U/L Alkaline Phosphatase 100 (38-126) U/L Total Protein 6.2 L (6.3-8.2) g/dL Albumin 3.4 L (3.5-5.0) g/dL Calcium panel 04/21/17 Range/Units 22:20 Calcium 8.7 (8.4-10.2) mg/dL Albumin 3.4 L (3.5-5.0) g/dL Pituitary panel 04/21/17 Range/Units 22:20 Sodium 140 (137-145) mmol/L Potassium 4.5 (3.5-5.1) mmol/L Chloride 108 H (98-107) mmol/L Carbon Dioxide 23 (22-30) mmol/L BUN 11 (9-20) mg/dL Creatinine 0.80 (0.66-1.25) mg/dL Glucose 89 (74-99) mg/dL Calcium 8.7 (8.4-10.2) mg/dL Adrenal panel 04/21/17 Range/Units 22:20 Sodium 140 (137-145) mmol/L Potassium 4.5 (3.5-5.1) mmol/L Chloride 108 H (98-107) mmol/L Carbon Dioxide 23 (22-30) mmol/L BUN 11 (9-20) mg/dL Creatinine 0.80 (0.66-1.25) mg/dL Glucose 89 (74-99) mg/dL Calcium 8.7 (8.4-10.2) mg/dL Total Bilirubin 0.5 (0.2-1.3) mg/dL AST 17 (17-59) U/L ALT 39 (21-72) U/L Alkaline Phosphatase 100 (38-126) U/L Total Protein 6.2 L (6.3-8.2) g/dL Albumin 3.4 L (3.5-5.0) g/dL Assessment and Plan (1) Diverticulitis of colon with perforation Narrative/Plan: The patient's CAT scan shows microperforation however the patient's physical exam findings are quite worrisome. I believe he probably has progressed since the time of his CAT scan last night. The option of sigmoid colectomy and colostomy were discussed in detail with the patient. The risks of bleeding, infection, abscess, hernia, ostomy related complications, ureteral injury, [place], and respiratory failure were discussed. He understands and wishes to proceed. Status: Acute
[2017-04-22] MEDS ORDERED: IV FLUID CONTINUATION 1,000 ML IV ONE (14:49)
[2017-04-22] MEDS ORDERED: HEPARIN SODIUM,PORCINE 5,000 UNIT/ML 1 ML VIAL SQ ONE (15:06)
[2017-04-22] MEDS ORDERED: MIDAZOLAM 2 MG/2 ML VIAL IVP ONE (15:07)
[2017-04-22] MEDS ORDERED: fentaNYL (PF) 50 MCG/ML 2 ML AMP IVP ONE ×2 (15:08→15:28)
[2017-04-22] MEDS ORDERED: GLYCOPYRROLATE 0.2 MG/ML 2 ML VIAL ONE (16:01)
[2017-04-22] MEDS ORDERED: ROCURONIUM BROMIDE 10 MG/ML 10 ML VIAL IV ONE (16:01)
[2017-04-22] MEDS ORDERED: MIDAZOLAM 2 MG/2 ML VIAL ONE (16:01)
[2017-04-22] MEDS ORDERED: hydrALAZINE HCL 20 MG/ML 1 ML VIAL ONE (16:01)
[2017-04-22] MEDS ORDERED: NEOSTIGMINE 1 MG/ML 10 ML VIAL ONE (16:01)
[2017-04-22] MEDS ORDERED: fentaNYL (PF) 50 MCG/ML 2 ML AMP ONE (16:01)
[2017-04-22] MEDS ORDERED: HYDROmorphone (PF) 1 MG/ML ONE (16:01)
[2017-04-22] MEDS ORDERED: SUCCINYLCHOLINE CHLORIDE 100 MG/5 ML SYR IV ONE (16:01)
[2017-04-22] MEDS ORDERED: LIDOCAINE 1% INJ 10MG/ML (20 ML MDV) ONE (16:01)
[2017-04-22] MEDS ORDERED: LACTATED RINGERS 1,000 ML IV ONE (17:07)
--- NOTE | 2017-04-22 18:10 | P.OP ---
Date of Procedure: 04/22/17 Procedure(s) Performed: PREOPERATIVE DIAGNOSIS: Perforated sigmoid colon POSTOPERATIVE DIAGNOSIS: Same PROCEDURE: Ferris's procedure with lysis of adhesions SURGEON: Jennifer EBL: See anesthesia records ANESTHESIA: General COMPLICATIONS: None OPERATIVE PROCEDURE: Patient place in the operative table in the supine position. The patient was placed under general anesthesia. The abdomen was prepped and draped in usual sterile fashion. A vertical incision was made extending from the infraumbilical location to the suprapubic region. The fascia was divided as well. The Bookwalter retractor was utilized. The patient had purulent fluid throughout the peritoneal cavity. There was a portion of the mid sigmoid colon that was firm and appeared to be the site of recent perforation. The bowel was divided proximal and distal to this segment using a linear 75 stapler. The mesentery was divided using combination of 0 silk ties and the LigaSure device. The proximal colon was mobilized by incising the white line of Toldt. The left ureter was identified and preserved. The patient had a decent length of distal sigmoid colon and proximal rectum still within the pelvis. It should be noted that prior to our resection a lysis of adhesions took place involving the small bowel that was adhesed down to the pelvis and omentum. This appeared to be from a previous ruptured appendix. The ostomy was made in the left periumbilical location. A portion of skin was excised and the subcutaneous fat and fascia were divided using electrocautery. A branch of the inferior epigastric was controlled using the LigaSure device. The bowel was able to be brought out through this location and was later matured using interrupted 3-0 Vicryl sutures. The abdomen was irrigated with saline. No abnormalities were identified elsewhere within the abdomen. The midline fascia was then reapproximated using a double- stranded #1 PDS suture. The subcutaneous tissues were closed using 3-0 Vicryl sutures. The skin was then closed using felix. 3 separate Telfa jacquie were placed within the incision for drainage purposes. An ostomy appliance was applied. Again the ostomy was matured after full closure and draping off of the midline incision site. Sterile dressings were then applied. DISPOSITION: Stable to recovery room
[2017-04-22] MEDS ORDERED: HYDROmorphone 1 MG/ML 1 ML SYRINGE IVP ONE ×4 (18:15→18:43)
[2017-04-22] MEDS ORDERED: MEPERIDINE 50 MG/ML SYRINGE IVP ONE (19:00)
[2017-04-22] MEDS: HYDROmorphone PCA 5 MG/25 ML SYRINGE IV PRN ×2 (20:11→22:13)
[2017-04-22] MEDS: ATORVASTATIN 80 MG TAB PO SCH (20:59)
[2017-04-22] MEDS ORDERED: ACETAMINOPHEN IV (For NPO) 1,000 MG in EMPTY BAG 1 BAG IVPB PRN (22:24)
[2017-04-23] MEDS: PIPERACILLIN-TAZOBACTAM 3.375 GM in DEXTROSE/WATER 1 50ML.BAG IVPB SCH ×3 (00:13→15:25)
[2017-04-23] MEDS: HYDROmorphone 1 MG/ML 1 ML SYRINGE IVP PRN ×2 (00:13→04:06)
[2017-04-23] MEDS: HYDROmorphone PCA 5 MG/25 ML SYRINGE IV PRN ×5 (02:45→23:21)
[2017-04-23] MEDS: SODIUM CHLORIDE 0.9% 1,000 ML IV SCH ×2 (06:44→11:10)
[2017-04-23] MEDS: FAMOTIDINE 20 MG/2 ML VIAL IV SCH ×2 (06:48→18:44)
[2017-04-23] MEDS: ATENOLOL 50 MG TAB PO SCH (08:23)
[2017-04-23] MEDS: hydrALAZINE HCL 50 MG TAB PO SCH ×2 (08:23→21:09)
[2017-04-23] MEDS: FUROSEMIDE 40 MG TAB PO SCH (08:23)
[2017-04-23] MEDS: PANTOPRAZOLE 40 MG/10 ML VIAL IV SCH (08:23)
[2017-04-23] MEDS: ASPIRIN 81 MG PO SCH (08:23)
[2017-04-23] MEDS: clonazePAM 1 MG TAB PO SCH ×2 (08:23→21:10)
--- NOTE | 2017-04-23 08:30 | P.PN ---
Subjective Principal diagnosis: Diverticulitis and perforation. This continue process on a 56-year-old white male essentially admitted for diverticulitis with perforation. The patient states significant pain control. Unfortunate, the patient is opioid dependent with significant DJD. We had a long discussion regarding pain control today. Otherwise, no flatus as stated. Objective - Vital Signs Vital signs: Vital Signs Temp 99.2 F 04/23/17 07:39 Pulse 68 04/23/17 07:39 Resp 15 04/23/17 07:39 BP 185/86 04/23/17 07:39 Pulse Ox 94 L 04/23/17 07:39 Intake & Output 04/22/17 04/23/17 04/23/17 18:59 06:59 18:59 Intake Total 2500 1400 1100 Output Total 350 725 Balance 2150 675 1100 Weight 99.79 kg Intake: IV 1450 300 Intake, IV Titration 1050 1100 1100 Amount Lactated Ringers 1,000 ml 1000 As IV [facility] Rx#: [id number] Piperacillin-Tazobactam 3 50 100 100 .375 gm In Dextrose/Water 1 50ml.bag @ 12.5 mls/hr IVPB Q8HR [facility] Rx#: [id number] Sodium Chloride 0.9% 1, 1000 1000 000 ml @ 125 mls/hr IV . Q8H [facility] Rx#:[id number] Output: Urine 300 725 Estimated Blood Loss 50 Other: Voiding Method Indwelling Catheter - Constitutional General appearance: Present: obese - EENT Eyes: Absent: abnormal pupil - Respiratory Respiratory: bilateral: CTA - Cardiovascular Rhythm: regular Heart sounds: normal: S1, S2 - Gastrointestinal General gastrointestinal: Present: absent bowel sounds - Integumentary Integumentary: Absent: rash - Neurologic Neurologic: Present: CNII-XII intact - Labs CBC & Chem 7: 04/21/17 22:20 04/21/17 22:20 Labs: Microbiology - Last 24 Hours (Table) 04/22/17 16:23 Gram Stain - Preliminary Peritoneal Fluid Wound Culture - Preliminary 04/22/17 16:23 Anaerobic Culture - Preliminary Peritoneal Fluid 04/21/17 22:20 Blood Culture - Preliminary Blood No Growth after 24 hours Assessment and Plan (1) CAD (coronary artery disease) Status: Acute (2) History of myocardial infarction Status: Acute (3) Diverticulitis of colon with perforation Status: Acute Plan: Postop day #14 diverticular disease with perforation. Continue standard postop protocols for pulmonary toilet and GI/DVT prophylaxis. Check CBC and CMP in a.m. per See orders otherwise. Time with Patient: Less than 30
--- NOTE | 2017-04-23 08:58 | P.PN ---
<Vanessa Bui - Last Filed: 04/23/17 08:37> Subjective 56-year-old male being seen on rounds this morning patient reports having surgical pain at surgical site. Using SWATCH FOLDER dilaudid Stoma to the left lower quadrant pink scant amount of liquid drainage in ostomy bag reports no nausea vomiting. Indwelling Hilario catheter in place. Abdominal binder in place a few hypoactive bowel tones Patient is postop Snehal's procedure with lysis of adhesions for perforated sigmoid colon done on the Objective - Vital Signs Vital signs: Vital Signs Temp 99.2 F 04/23/17 07:39 Pulse 68 04/23/17 07:39 Resp 15 04/23/17 07:39 BP 185/86 04/23/17 07:39 Pulse Ox 94 L 04/23/17 07:39 Intake & Output 04/22/17 04/23/17 04/23/17 18:59 06:59 18:59 Intake Total 2500 1400 1100 Output Total 350 725 Balance 2150 675 1100 Weight 99.79 kg Intake: IV 1450 300 Intake, IV Titration 1050 1100 1100 Amount Lactated Ringers 1,000 ml 1000 As IV [facility] Rx#: [id number] Piperacillin-Tazobactam 3 50 100 100 .375 gm In Dextrose/Water 1 50ml.bag @ 12.5 mls/hr IVPB Q8HR [facility] Rx#: [id number] Sodium Chloride 0.9% 1, 1000 1000 000 ml @ 125 mls/hr IV . Q8H [facility] Rx#:[id number] Output: Urine 300 725 Estimated Blood Loss 50 Other: Voiding Method Indwelling Catheter - Exam Physical exam 56-year-old male resting in bed eyes closed appears in no acute distress Lungs essentially clear adequate air movement on room air no cough noted no shortness of breath Heart S1-S2 audible regular denying chest pain abdomen stoma left lower quadrant pink skin mild liquid drainage in the ostomy bag few hypoactive bowel tones no nausea no vomiting indwelling Hilario catheter in place Extremities Venodyne's on to the bilateral lower extremity - Labs CBC & Chem 7: 04/21/17 22:20 04/21/17 22:20 Labs: Microbiology - Last 24 Hours (Table) 04/22/17 16:23 Gram Stain - Preliminary Peritoneal Fluid Wound Culture - Preliminary 04/22/17 16:23 Anaerobic Culture - Preliminary Peritoneal Fluid 04/21/17 22:20 Blood Culture - Preliminary Blood No Growth after 24 hours Assessment and Plan Plan: Impression Present on admission left lower quadrant abdominal pain suspect due to diverticulitis of the colon with perforated sigmoid colon Status post Snehal's procedure with lysis of adhesions done on 22 of April Known coronary artery disease Chronic pain with opiate dependency Chronic nicotine dependency Plan Continue postop surgical care Pain control DVT and GI prophylaxis Increase activity Monitor labs Further recommendations pending Encourage use of incentive spirometer The above impression and plan of care have been discussed and directed by signing physician. Vanessa Bui nurse practitioner acting as scribe for signing physician. <Ubaldo Rodriguez - Last Filed: 04/23/17 12:53> Objective - Vital Signs Vital signs: Vital Signs Temp 99.2 F 04/23/17 07:39 Pulse 68 04/23/17 07:39 Resp 15 04/23/17 07:39 BP 185/86 04/23/17 07:39 Pulse Ox 94 L 04/23/17 07:39 Intake & Output 04/22/17 04/23/17 04/23/17 18:59 06:59 18:59 Intake Total 2500 1400 1100 Output Total 350 725 250 Balance 2150 675 850 Weight 99.79 kg Intake: IV 1450 300 Intake, IV Titration 1050 1100 1100 Amount Lactated Ringers 1,000 ml 1000 As IV [facility] Rx#: [id number] Piperacillin-Tazobactam 3 50 100 100 .375 gm In Dextrose/Water 1 50ml.bag @ 12.5 mls/hr IVPB Q8HR [facility] Rx#: [id number] Sodium Chloride 0.9% 1, 1000 1000 000 ml @ 125 mls/hr IV . Q8H [facility] Rx#:[id number] Output: Urine 300 725 250 Uretheral (Hilario) 250 Estimated Blood Loss 50 Other: Voiding Method Indwelling Catheter Indwelling Catheter - Labs CBC & Chem 7: 04/23/17 07:32 04/23/17 07:32 Labs: Abnormal Lab Results - Last 24 Hours (Table) 04/23/17 04/23/17 Range/Units 07:32 07:32 RBC 4.00 L (4.30-5.90) m/uL Hgb 12.1 L (13.0-17.5) gm/dL Hct 38.4 L (39.0-53.0) % Neutrophils # 9.0 H (1.3-7.7) k/uL Sodium 135 L (137-145) mmol/L Carbon Dioxide 21 L (22-30) mmol/L Creatinine 0.52 L (0.66-1.25) mg/dL Glucose 156 H (74-99) mg/dL Calcium 8.0 L (8.4-10.2) mg/dL AST 15 L (17-59) U/L Total Protein 5.5 L (6.3-8.2) g/dL Albumin 2.7 L (3.5-5.0) g/dL Microbiology - Last 24 Hours (Table) 04/22/17 16:23 Gram Stain - Preliminary Peritoneal Fluid Wound Culture - Preliminary 04/22/17 16:23 Anaerobic Culture - Preliminary Peritoneal Fluid 04/21/17 22:20 Blood Culture - Preliminary Blood No Growth after 24 hours Assessment and Plan (1) Diverticulitis of colon with perforation Status: Acute Plan: Patient doing better today. Her abdominal pain is improved. No nausea or vomiting. Pain is better controlled. May continue liquid diet. PTOT consult. We'll add Toradol.
[2017-04-23 08:59] LABS: Basophils % (A) 0 %; CH 31.1; CHCM 32.5; Eosinophils % (A) 0 %; HCT 38.4 % (39.0-53.0); HDW 2.41; HGB 12.1 gm/dL (13.0-17.5); Luc # (Auto) 0.09; Luc % (Auto) 1; Lymphocytes % (A) 10 %; MCH 30.3 pg (25.0-35.0); MCHC 31.5 g/dL (31.0-37.0); MCV 96.1 fL (80.0-100.0); Mean Platelet Volume 8.5; Monocytes # (A) 0.3 k/uL (0-1.0); Monocytes % (A) 3 %; Neutrophils % (A) 86 %; WBC 10.5 k/uL (3.8-10.6); WBC (Perox) 10.42
[2017-04-23 09:06] LABS: ALT 31 U/L (21-72); AST 15 U/L (17-59); Alkaline Phosphatase 80 U/L (38-126); Anion Gap 8 mmol/L; Blood Urea Nitrogen 9 mg/dL (9-20); Carbon Dioxide 21 mmol/L (22-30); Chloride 106 mmol/L (98-107); Glucose 156 mg/dL (74-99); Non-African American GFR(MDRD) >60 (>60 ml/min/1.73 sqM); Sodium 135 mmol/L (137-145); Total Bilirubin 0.7 mg/dL (0.2-1.3); Total Protein 5.5 g/dL (6.3-8.2)
[2017-04-23] MEDS: KETOROLAC 30 MG/ML 1 ML VIAL IVP SCH (18:44)
[2017-04-23] MEDS: ATORVASTATIN 80 MG TAB PO SCH (21:10)
[2017-04-24] MEDS: PIPERACILLIN-TAZOBACTAM 3.375 GM in DEXTROSE/WATER 1 50ML.BAG IVPB SCH ×3 (00:13→16:15)
[2017-04-24] MEDS: KETOROLAC 30 MG/ML 1 ML VIAL IVP SCH ×4 (00:13→18:39)
[2017-04-24] MEDS: HYDROmorphone PCA 5 MG/25 ML SYRINGE IV PRN (06:09)
[2017-04-24] MEDS: FAMOTIDINE 20 MG/2 ML VIAL IV SCH (06:25)
[2017-04-24 07:08] LABS: CH 31.1; CHCM 33.3; HCT 31.3 % (39.0-53.0); HDW 2.52; HGB 10.3 gm/dL (13.0-17.5); MCV 93.9 fL (80.0-100.0); Mean Platelet Volume 8.8; RBC 3.34 m/uL (4.30-5.90); RDW 13.9 % (11.5-15.5); WBC 12.6 k/uL (3.8-10.6)
[2017-04-24 07:19] LABS: ALT 23 U/L (21-72); AST 13 U/L (17-59); Alkaline Phosphatase 63 U/L (38-126); Anion Gap 6 mmol/L; Blood Urea Nitrogen 8 mg/dL (9-20); Calcium 7.9 mg/dL (8.4-10.2); Carbon Dioxide 20 mmol/L (22-30); Chloride 109 mmol/L (98-107); Glucose 107 mg/dL (74-99); Non-African American GFR(MDRD) >60 (>60 ml/min/1.73 sqM); Potassium 3.7 mmol/L (3.5-5.1); Sodium 135 mmol/L (137-145); Total Bilirubin 0.5 mg/dL (0.2-1.3); Total Protein 4.7 g/dL (6.3-8.2)
--- NOTE | 2017-04-24 08:20 | P.PN ---
Subjective Principal diagnosis: Continue care/postop day #2 for diverticular disease. This a continue present on a 56-year-old white male essentially admitted for diverticulitis with perforation. The patient is postop day #2 for repair. The patient states significant pain. However, Toradol has been added by surgery. Blood pressure was supposedly quite low this morning. We will hold Lopressor if systolic blood pressure less than 1 10 mmHg. The patient otherwise states no flatus this morning. Objective - Vital Signs Vital signs: Vital Signs Temp 97.5 F L 04/24/17 07:14 Pulse 75 04/24/17 07:14 Resp 14 04/24/17 07:14 BP 99/64 04/24/17 07:14 Pulse Ox 98 04/24/17 07:14 Intake & Output 04/23/17 04/24/17 04/24/17 18:59 06:59 18:59 Intake Total 1200 1550 Output Total 500 775 Balance 700 775 Intake: Intake, IV Titration 1100 1550 Amount Piperacillin-Tazobactam 3 100 50 .375 gm In Dextrose/Water 1 50ml.bag @ 12.5 mls/hr IVPB Q8HR [facility] Rx#: [id number] Sodium Chloride 0.9% 1, 1000 1500 000 ml @ 125 mls/hr IV . Q8H [facility] Rx#:[id number] Oral 100 Output: Urine 450 775 Uretheral (Hilario) 250 Stool 50 Other: Voiding Method Indwelling Catheter # Voids 1 - Constitutional General appearance: Present: average body habitus - EENT Eyes: Absent: abnormal pupil - Respiratory Respiratory: bilateral: diminished - Cardiovascular Rhythm: regular Heart sounds: normal: S1, S2 - Gastrointestinal General gastrointestinal: Present: soft. Absent: tenderness - Psychiatric Psychiatric: Present: A&O x's 3 - Labs CBC & Chem 7: 04/24/17 06:24 04/24/17 06:24 Labs: Abnormal Lab Results - Last 24 Hours (Table) 04/23/17 04/23/17 04/24/17 Range/Units 07:32 07:32 06:24 WBC 12.6 H (3.8-10.6) k/uL RBC 4.00 L 3.34 L (4.30-5.90) m/uL Hgb 12.1 L 10.3 L (13.0-17.5) gm/dL Hct 38.4 L 31.3 L (39.0-53.0) % Neutrophils # 9.0 H (1.3-7.7) k/uL Sodium 135 L (137-145) mmol/L Chloride (98-107) mmol/L Carbon Dioxide 21 L (22-30) mmol/L BUN (9-20) mg/dL Creatinine 0.52 L (0.66-1.25) mg/dL Glucose 156 H (74-99) mg/dL Calcium 8.0 L (8.4-10.2) mg/dL AST 15 L (17-59) U/L Total Protein 5.5 L (6.3-8.2) g/dL Albumin 2.7 L (3.5-5.0) g/dL 04/24/17 Range/Units 06:24 WBC (3.8-10.6) k/uL RBC (4.30-5.90) m/uL Hgb (13.0-17.5) gm/dL Hct (39.0-53.0) % Neutrophils # (1.3-7.7) k/uL Sodium 135 L (137-145) mmol/L Chloride 109 H (98-107) mmol/L Carbon Dioxide 20 L (22-30) mmol/L BUN 8 L (9-20) mg/dL Creatinine 0.58 L (0.66-1.25) mg/dL Glucose 107 H (74-99) mg/dL Calcium 7.9 L (8.4-10.2) mg/dL AST 13 L (17-59) U/L Total Protein 4.7 L (6.3-8.2) g/dL Albumin 2.2 L (3.5-5.0) g/dL Microbiology - Last 24 Hours (Table) 04/21/17 22:20 Blood Culture - Preliminary Blood No Growth after 48 hours 04/22/17 16:23 Gram Stain - Preliminary Peritoneal Fluid Wound Culture - Preliminary Gram Neg Bacilli Assessment and Plan (1) CAD (coronary artery disease) Status: Acute (2) History of myocardial infarction Status: Acute (3) Diverticulitis of colon with perforation Status: Acute Plan: Continue current care with clear liquids. Pain control per surgery. Check CBC and CMP in a.m. Watch vital signs as far as blood pressure and heart rate which has been slightly bradycardic.
[2017-04-24] MEDS: PANTOPRAZOLE 40 MG/10 ML VIAL IV SCH (08:54)
[2017-04-24] MEDS: ATENOLOL 50 MG TAB PO SCH (09:31)
[2017-04-24] MEDS: hydrALAZINE HCL 50 MG TAB PO SCH ×2 (09:32→21:00)
[2017-04-24] MEDS: FUROSEMIDE 40 MG TAB PO SCH (09:34)
[2017-04-24] MEDS: clonazePAM 1 MG TAB PO SCH ×2 (09:35→20:59)
[2017-04-24] MEDS: ASPIRIN 81 MG PO SCH (09:35)
--- NOTE | 2017-04-24 10:07 | P.PN ---
<Mickie Buine Vandana - Last Filed: 04/24/17 10:01> Subjective 56-year-old gentleman being seen on rounds this morning currently patient is sitting up in a chair. Patient is asking for his home pain medication to be resumed and have IV dilaudid stopped. Patient states he feels that he would have more effective pain control. Patient reports no nausea vomiting. No stool from the ostomy noted liquid secretions noted in the ostomy bag. Reports no nausea vomiting postop Snehal's procedure with lysis of adhesions for perforated sigmoid colon done on the Objective - Vital Signs Vital signs: Vital Signs Temp 97.6 F 04/24/17 09:06 Pulse 67 04/24/17 09:06 Resp 13 04/24/17 09:06 BP 97/59 04/24/17 09:06 Pulse Ox 99 04/24/17 09:06 Intake & Output 04/23/17 04/24/17 04/24/17 18:59 06:59 18:59 Intake Total 1200 1550 Output Total 500 775 Balance 700 775 Intake: Intake, IV Titration 1100 1550 Amount Piperacillin-Tazobactam 3 100 50 .375 gm In Dextrose/Water 1 50ml.bag @ 12.5 mls/hr IVPB Q8HR [facility] Rx#: [id number] Sodium Chloride 0.9% 1, 1000 1500 000 ml @ 125 mls/hr IV . Q8H [facility] Rx#:[id number] Oral 100 Output: Urine 450 775 Uretheral (Hilario) 250 Stool 50 Other: Voiding Method Indwelling Catheter # Voids 1 - Exam Physical exam 56-year-old gentleman sitting up in a chair talkative oriented 3 appears in no acute distress Lungs diminished at the bases otherwise adequate air movement currently on room air sats are 99% Heart S1-S2 audible and regular Abdomen abdominal binder in place. Hypoactive bowel tones noted ostomy left lower quadrant scant amount as brownish secretions noted no stool no reports of nausea vomiting soft surgical tenderness appropriate Extremities Venodyne's on to the bilateral lower extremities - Labs CBC & Chem 7: 04/24/17 06:24 04/24/17 06:24 Labs: Abnormal Lab Results - Last 24 Hours (Table) 04/24/17 04/24/17 Range/Units 06:24 06:24 WBC 12.6 H (3.8-10.6) k/uL RBC 3.34 L (4.30-5.90) m/uL Hgb 10.3 L (13.0-17.5) gm/dL Hct 31.3 L (39.0-53.0) % Sodium 135 L (137-145) mmol/L Chloride 109 H (98-107) mmol/L Carbon Dioxide 20 L (22-30) mmol/L BUN 8 L (9-20) mg/dL Creatinine 0.58 L (0.66-1.25) mg/dL Glucose 107 H (74-99) mg/dL Calcium 7.9 L (8.4-10.2) mg/dL AST 13 L (17-59) U/L Total Protein 4.7 L (6.3-8.2) g/dL Albumin 2.2 L (3.5-5.0) g/dL Microbiology - Last 24 Hours (Table) 04/21/17 22:20 Blood Culture - Preliminary Blood No Growth after 48 hours 04/22/17 16:23 Gram Stain - Preliminary Peritoneal Fluid Wound Culture - Preliminary Gram Neg Bacilli Assessment and Plan Plan: Impression Present on admission left lower quadrant abdominal pain suspect due to diverticulitis of the colon with perforated sigmoid colon Status post Snehal's procedure with lysis of adhesions done on 22 of April Known coronary artery disease Chronic pain with opiate dependency Chronic nicotine dependency Plan Continue postop surgical care Pain control DVT and GI prophylaxis Increase activity Monitor labs Further recommendations pending Encourage use of incentive spirometer Resume home oxycodone dose. Stop iv dilaudid Continue PT OT The above impression and plan of care have been discussed and directed by signing physician. Vanessa Bui nurse practitioner acting as scribe for signing physician. <Ubaldo Rodriguez - Last Filed: 04/24/17 11:10> Objective - Vital Signs Vital signs: Vital Signs Temp 98.0 F 04/24/17 10:57 Pulse 66 04/24/17 10:57 Resp 16 04/24/17 10:57 BP 115/72 04/24/17 10:57 Pulse Ox 97 04/24/17 10:57 Intake & Output 04/23/17 04/24/17 04/24/17 18:59 06:59 18:59 Intake Total 1200 1550 Output Total 500 775 100 Balance 700 775 -100 Weight 99.79 kg Intake: Intake, IV Titration 1100 1550 Amount Piperacillin-Tazobactam 3 100 50 .375 gm In Dextrose/Water 1 50ml.bag @ 12.5 mls/hr IVPB Q8HR [facility] Rx#: [id number] Sodium Chloride 0.9% 1, 1000 1500 000 ml @ 125 mls/hr IV . Q8H [facility] Rx#:[id number] Oral 100 Output: Urine 450 775 Uretheral (Hilario) 250 Stool 50 100 Other: Voiding Method Indwelling Catheter Toilet # Voids 1 - Labs CBC & Chem 7: 04/24/17 06:24 04/24/17 06:24 Labs: Abnormal Lab Results - Last 24 Hours (Table) 04/24/17 04/24/17 Range/Units 06:24 06:24 WBC 12.6 H (3.8-10.6) k/uL RBC 3.34 L (4.30-5.90) m/uL Hgb 10.3 L (13.0-17.5) gm/dL Hct 31.3 L (39.0-53.0) % Sodium 135 L (137-145) mmol/L Chloride 109 H (98-107) mmol/L Carbon Dioxide 20 L (22-30) mmol/L BUN 8 L (9-20) mg/dL Creatinine 0.58 L (0.66-1.25) mg/dL Glucose 107 H (74-99) mg/dL Calcium 7.9 L (8.4-10.2) mg/dL AST 13 L (17-59) U/L Total Protein 4.7 L (6.3-8.2) g/dL Albumin 2.2 L (3.5-5.0) g/dL Microbiology - Last 24 Hours (Table) 04/21/17 22:20 Blood Culture - Preliminary Blood No Growth after 48 hours 04/22/17 16:23 Gram Stain - Preliminary Peritoneal Fluid Wound Culture - Preliminary Gram Neg Bacilli Assessment and Plan (1) Diverticulitis of colon with perforation Status: Acute Plan: As above. Patient's pain is improved. He actually is asking to be off of his IV narcotics. He is starting to ambulate. Small amount of stool within the ostomy appliance. Will advance diet to full liquids. Change midline jacquie. Continue antibiotics.
[2017-04-24] MEDS: SODIUM CHLORIDE 0.9% 1,000 ML IV SCH ×3 (11:57→22:57)
[2017-04-24] MEDS: HYDROmorphone 1 MG/ML 1 ML SYRINGE IVP PRN (14:48)
[2017-04-24] MEDS: ATORVASTATIN 80 MG TAB PO SCH (21:00)
[2017-04-25] MEDS: KETOROLAC 30 MG/ML 1 ML VIAL IVP SCH (00:39)
[2017-04-25] MEDS: PIPERACILLIN-TAZOBACTAM 3.375 GM in DEXTROSE/WATER 1 50ML.BAG IVPB SCH ×4 (00:39→23:39)
[2017-04-25] MEDS: SODIUM CHLORIDE 0.9% 1,000 ML IV SCH ×2 (08:01→12:23)
--- NOTE | 2017-04-25 08:12 | P.PN ---
Subjective Principal diagnosis: Diverticulitis Patient doing well today. Mild discomfort. Tolerating full liquid diet. Ostomy is starting to function. No labs from today. Objective - Vital Signs Vital signs: Vital Signs Temp 97.8 F 04/25/17 07:00 Pulse 60 04/25/17 07:00 Resp 16 04/25/17 07:00 BP 107/52 04/25/17 07:00 Pulse Ox 96 04/25/17 07:00 Intake & Output 04/24/17 04/25/17 04/25/17 18:59 06:59 18:59 Intake Total 500 950 Output Total 425 50 Balance 75 900 Weight 99.79 kg Intake: IV 500 900 Sodium Chloride 0.9% 1, 500 900 000 ml @ 75 mls/hr IV . [id number] [facility] Rx#:[id number] Intake, IV Titration 50 Amount Piperacillin-Tazobactam 3 50 .375 gm In Dextrose/Water 1 50ml.bag @ 12.5 mls/hr IVPB Q8HR [facility] Rx#: [id number] Output: Urine 225 Stool 200 50 Other: Voiding Method Toilet # Voids 1 - Exam Abdomen: Soft, slightly distended, incision clean, ostomy function - Labs CBC & Chem 7: 04/24/17 06:24 04/24/17 06:24 Labs: Microbiology - Last 24 Hours (Table) 04/21/17 22:20 Blood Culture - Preliminary Blood No Growth after 72 hours 04/22/17 16:23 Anaerobic Culture - Preliminary Peritoneal Fluid 04/22/17 16:23 Gram Stain - Final Peritoneal Fluid Wound Culture - Final Escherichia coli Assessment and Plan (1) Diverticulitis of colon with perforation Narrative/Plan: Increase diet. May shower today. Probable discharge tomorrow. Status: Acute
[2017-04-25 08:13] LABS: CH 30.8; CHCM 32.6; HCT 21.1 % (39.0-53.0); HDW 2.77; MCH 30.3 pg (25.0-35.0); MCHC 31.9 g/dL (31.0-37.0); Mean Platelet Volume 8.7; RBC 2.22 m/uL (4.30-5.90); RDW 13.8 % (11.5-15.5); WBC 7.1 k/uL (3.8-10.6)
[2017-04-25 08:14] LABS: HGB 6.7 gm/dL (13.0-17.5)
[2017-04-25] MEDS: FUROSEMIDE 40 MG TAB PO SCH (08:16)
[2017-04-25] MEDS: hydrALAZINE HCL 50 MG TAB PO SCH ×2 (08:16→20:58)
[2017-04-25] MEDS: ATENOLOL 50 MG TAB PO SCH (08:16)
[2017-04-25 08:17] LABS: ALT 26 U/L (21-72); AST 19 U/L (17-59); Alkaline Phosphatase 52 U/L (38-126); Anion Gap 5 mmol/L; Blood Urea Nitrogen 13 mg/dL (9-20); Calcium 7.6 mg/dL (8.4-10.2); Carbon Dioxide 26 mmol/L (22-30); Chloride 107 mmol/L (98-107); Glucose 77 mg/dL (74-99); Non-African American GFR(MDRD) >60 (>60 ml/min/1.73 sqM); Potassium 3.5 mmol/L (3.5-5.1); Sodium 138 mmol/L (137-145); Total Bilirubin 0.2 mg/dL (0.2-1.3); Total Protein 4.4 g/dL (6.3-8.2)
[2017-04-25] MEDS: clonazePAM 1 MG TAB PO SCH ×2 (08:24→21:01)
[2017-04-25] MEDS: PANTOPRAZOLE 40 MG/10 ML VIAL IV SCH (08:24)
[2017-04-25] MEDS: ASPIRIN 81 MG PO SCH (08:25)
[2017-04-25 09:18] LABS: Basophils % (A) 0 %; CHCM 32.7; Eosinophils # (A) 0.3 k/uL (0-0.7); Eosinophils % (A) 4 %; HDW 2.72; Luc % (Auto) 1; Lymphocytes # (A) 2.1 k/uL (1.0-4.8); Lymphocytes % (A) 29 %; MCH 30.1 pg (25.0-35.0); MCHC 31.5 g/dL (31.0-37.0); MCV 95.3 fL (80.0-100.0); Mean Platelet Volume 9.1; Monocytes # (A) 0.4 k/uL (0-1.0); Monocytes % (A) 5 %; Neutrophils # (A) 4.4 k/uL (1.3-7.7); Neutrophils % (A) 60 %; RBC 2.31 m/uL (4.30-5.90); RDW 13.9 % (11.5-15.5); WBC 7.3 k/uL (3.8-10.6); WBC (Perox) 7.94
[2017-04-25 09:19] LABS: HGB 6.9 gm/dL (13.0-17.5)
[2017-04-25] MEDS: ACETAMINOPHEN TAB 325 MG TAB PO PRN (11:19)
[2017-04-25] MEDS: HYDROmorphone 1 MG/ML 1 ML SYRINGE IVP PRN (12:22)
[2017-04-25] MEDS: SUCRALFATE 1 GM TAB PO SCH ×2 (13:32→17:21)
--- NOTE | 2017-04-25 14:50 | CDI ---
In responding to this query, please exercise your independent professional judgment. The [facility] Coding Staff and Clinical Documentation Specialists appreciate your assistance in clarifying documentation, maintaining compliance with coding guidelines, accurately documenting patients condition and capturing severity of illness. The fact that a question is asked does not imply that any particular answer is desired or expected. Communication forms are a method of clarifying documentation and are not made part of the Legal Health Record. Thank you in advance for your clarification. Last Revision, May 2015 Rojas Foreman [address] [place] [address] Documentation Clarification Form Date: 04/25/2017 2:38:00 PM From: Taylor Medina RN, CDS Admit Date: 04/22/2017 4:06:00 AM Patient Name: Jozef Banuelos Visit Number: [id number] Dr. Ubaldo Rodriguez, 56 year old patient admitted for diverticulitis of colon with perforation and underwent Ferris's procedure on 04/22. On 04/25 patients H/H were 6.7/21.1 and 6.9/22. 1 unit of PRBCs was ordered and transfused on 04/25 A diagnosis of anemia lacks specificity to accurately reflect your patients severity of condition and clarification is needed. Patient history/risk factors: perforated sigmoid colon s/p Ferris's procedure Clinical Indicators: H/H 6.7/21.1 and 6.9/22 Treatment: 1 unit PRBC transfusion, CBC 04/26 In order to capture the severity of condition, please clarify the type of anemia and etiology if known: Acute blood loss anemia Hemolytic anemia Unable to determine Other, please specify Please document in your progress notes and discharge summary in order to capture severity of illness and risk of mortality. Include clinical findings that support your diagnosis. FYI: Press F11 to launch patient chart. Thank you. MASSIEL
[2017-04-25] MEDS: ATORVASTATIN 80 MG TAB PO SCH (20:58)
[2017-04-26] MEDS: SODIUM CHLORIDE 0.9% 1,000 ML IV SCH ×4 (01:20→15:01)
[2017-04-26] MEDS: PIPERACILLIN-TAZOBACTAM 3.375 GM in DEXTROSE/WATER 1 50ML.BAG IVPB SCH ×3 (07:27→23:29)
[2017-04-26] MEDS: SUCRALFATE 1 GM TAB PO SCH ×3 (07:28→16:37)
[2017-04-26] MEDS: FUROSEMIDE 40 MG TAB PO SCH (07:29)
[2017-04-26] MEDS: ASPIRIN 81 MG PO SCH (07:29)
[2017-04-26] MEDS: ATENOLOL 50 MG TAB PO SCH (07:29)
[2017-04-26] MEDS: hydrALAZINE HCL 50 MG TAB PO SCH ×2 (07:30→20:11)
[2017-04-26] MEDS: PANTOPRAZOLE 40 MG/10 ML VIAL IV SCH (07:30)
[2017-04-26] MEDS: clonazePAM 1 MG TAB PO SCH ×2 (07:31→20:11)
[2017-04-26 07:33] LABS: Basophils % (A) 0 %; CHCM 32.2; Eosinophils # (A) 0.2 k/uL (0-0.7); Eosinophils % (A) 3 %; HDW 2.95; HGB 7.2 gm/dL (13.0-17.5); Luc # (Auto) 0.09; Luc % (Auto) 2; Lymphocytes # (A) 1.2 k/uL (1.0-4.8); Lymphocytes % (A) 20 %; MCH 30.9 pg (25.0-35.0); MCHC 32.9 g/dL (31.0-37.0); MCV 93.8 fL (80.0-100.0); Mean Platelet Volume 7.6; Monocytes # (A) 0.3 k/uL (0-1.0); Monocytes % (A) 5 %; Neutrophils # (A) 4.2 k/uL (1.3-7.7); Neutrophils % (A) 70 %; RBC 2.35 m/uL (4.30-5.90); RDW 14.1 % (11.5-15.5); WBC (Perox) 6.47
[2017-04-26 07:56] LABS: Anion Gap 6 mmol/L; Blood Urea Nitrogen 8 mg/dL (9-20); Calcium 7.6 mg/dL (8.4-10.2); Carbon Dioxide 23 mmol/L (22-30); Chloride 106 mmol/L (98-107); Glucose 78 mg/dL (74-99); Non-African American GFR(MDRD) >60 (>60 ml/min/1.73 sqM); Potassium 3.4 mmol/L (3.5-5.1); Sodium 135 mmol/L (137-145)
--- NOTE | 2017-04-26 08:25 | P.PN ---
Subjective Principal diagnosis: Continue care/postop day #2 for diverticular disease. This continue present on a 56-year-old white male who is postop day #3 for diverticulitis with perforation. The patient he will did drop yesterday. H&H is 7.2. No sniffing chest pain stated. Ostomy site looks fine otherwise. Objective - Vital Signs Vital signs: Vital Signs Temp 98.5 F 04/26/17 07:25 Pulse 70 04/26/17 07:25 Resp 16 04/26/17 07:25 BP 136/63 04/26/17 07:25 Pulse Ox 93 L 04/26/17 07:25 Intake & Output 04/25/17 04/26/17 04/26/17 18:59 06:59 18:59 Intake Total 310 1375 Output Total 400 Balance 310 975 Intake: IV 825 Sodium Chloride 0.9% 1, 825 000 ml @ 75 mls/hr IV . [id number] [facility] Rx#:[id number] Oral 550 Blood Product 310 Rc Pheresis 2 As3 Unit 310 [id number] Output: Urine 400 Other: Voiding Method Toilet Urinal # Voids 1 3 - Constitutional General appearance: Present: obese - EENT Eyes: Absent: abnormal pupil - Respiratory Respiratory: bilateral: CTA - Cardiovascular Rhythm: regular Heart sounds: normal: S1, S2 - Gastrointestinal General gastrointestinal: Present: normal bowel sounds, tenderness - Labs CBC & Chem 7: 04/26/17 07:00 04/26/17 07:00 Labs: Abnormal Lab Results - Last 24 Hours (Table) 04/25/17 04/25/17 04/26/17 Range/Units 09:03 09:03 07:00 RBC 2.31 L 2.35 L (4.30-5.90) m/uL Hgb 6.9 L* 7.2 L (13.0-17.5) gm/dL Hct 22.0 L 22.0 L (39.0-53.0) % Sodium (137-145) mmol/L Potassium (3.5-5.1) mmol/L BUN (9-20) mg/dL Creatinine (0.66-1.25) mg/dL Calcium (8.4-10.2) mg/dL Crossmatch See Detail 04/26/17 Range/Units 07:00 RBC (4.30-5.90) m/uL Hgb (13.0-17.5) gm/dL Hct (39.0-53.0) % Sodium 135 L (137-145) mmol/L Potassium 3.4 L (3.5-5.1) mmol/L BUN 8 L (9-20) mg/dL Creatinine 0.60 L (0.66-1.25) mg/dL Calcium 7.6 L (8.4-10.2) mg/dL Crossmatch Microbiology - Last 24 Hours (Table) 04/21/17 22:20 Blood Culture - Preliminary Blood No Growth after 96 hours Assessment and Plan (1) CAD (coronary artery disease) Status: Acute (2) History of myocardial infarction Status: Acute (3) Diverticulitis of colon with perforation Status: Acute Plan: Given his anemia, we will continue to follow. Check hemoglobin and hematocrit in the a.m. at the latest. We'll continue to follow. Dr. Meraz's group will be covering for the weekend.
--- NOTE | 2017-04-26 09:36 | P.PN ---
Subjective 56-year-old male being seen on rounds this morning is currently sitting up in a chair. Patient states the epigastric discomfort has improved after starting Carafate yesterday. Patient states he did ambulate in the hallway once. Patient states passing gas through the ostomy no stool is urinating with no difficulty patient is postop Snehal's procedure done on the for diverticulitis with a colon perforation. Patient did receive 1 unit of packed red blood cells yesterday for hemoglobin of 6.7. Repeat hemoglobin this morning 7.2. Dressing removed from the surgical site noted [address] areas of packing in place suture line well approximated no redness felix in place stoma pink with scant amount of brown secretions in the ostomy bag patient states some tenderness to the left lower quadrant. There is no evidence of an acute GI bleed there is no hematemesis no blood noted in the ostomy bag postop Snehal's procedure with lysis of adhesions for perforated sigmoid colon done on the Objective - Vital Signs Vital signs: Vital Signs Temp 98.5 F 04/26/17 07:25 Pulse 70 04/26/17 07:25 Resp 16 04/26/17 07:25 BP 136/63 04/26/17 07:25 Pulse Ox 93 L 04/26/17 07:25 Intake & Output 04/25/17 04/26/17 04/26/17 18:59 06:59 18:59 Intake Total 310 1375 Output Total 400 Balance 310 975 Intake: IV 825 Sodium Chloride 0.9% 1, 825 000 ml @ 75 mls/hr IV . [id number] [facility] Rx#:[id number] Oral 550 Blood Product 310 Rc Pheresis 2 As3 Unit 310 [id number] Output: Urine 400 Other: Voiding Method Toilet Urinal # Voids 1 3 - Exam Physical exam 56-year-old gentleman sitting up in a chair talkative oriented 3 appears in no acute distress states less epigastric discomfort this morning Lungs diminished at the bases otherwise adequate air movement currently on room air sats are 93% no cough noted Heart S1-S2 audible and regular no murmur noted denying chest pain Abdomen abdominal binder in place. Removed surgical incision felix in place well approximated no redness packing removed from the 3 surgical sites no odor noted Hypoactive bowel tones noted ostomy left lower quadrant scant amount brownish secretions noted no stool no reports of nausea vomiting soft surgical tenderness appropriate Extremities Venodyne's on to the bilateral lower extremities no edema noted - Labs CBC & Chem 7: 04/26/17 07:00 04/26/17 07:00 Labs: Abnormal Lab Results - Last 24 Hours (Table) 04/25/17 04/26/17 04/26/17 Range/Units 09:03 07:00 07:00 RBC 2.35 L (4.30-5.90) m/uL Hgb 7.2 L (13.0-17.5) gm/dL Hct 22.0 L (39.0-53.0) % Sodium 135 L (137-145) mmol/L Potassium 3.4 L (3.5-5.1) mmol/L BUN 8 L (9-20) mg/dL Creatinine 0.60 L (0.66-1.25) mg/dL Calcium 7.6 L (8.4-10.2) mg/dL Crossmatch See Detail Microbiology - Last 24 Hours (Table) 04/21/17 22:20 Blood Culture - Preliminary Blood No Growth after 96 hours Assessment and Plan Plan: Impression Present on admission left lower quadrant abdominal pain suspect due to diverticulitis of the colon with perforated sigmoid colon Status post Snehal's procedure with lysis of adhesions done on 22 of April Known coronary artery disease Chronic pain with opiate dependency Chronic nicotine dependency Postop anemia unable to determine no evidence of acute GI blood loss Wound culture peritoneal fluid positive E. coli Plan IV Zosyn as ordered day 3 for wound care culture positive for E. coli Start ostomy teaching per ostomy nurse Continue postop surgical care Pain control DVT and GI prophylaxis Increase activity Monitor labs Encourage use of incentive spirometer Resume home oxycodone dose. Stop iv dilaudid Continue PT OT The above impression and plan of care have been discussed and directed by signing physician. Vanessa Bui nurse practitioner acting as scribe for signing physician.
[2017-04-26] MEDS ORDERED: RX INFO: IV CONTRAST WAS GIVEN 1 EACH MISC MISCELLANE PRN (10:10)
[2017-04-26] MEDS: IOHEXOL 350 MG/ML 25 ML BOTTLE (ORAL USE) PO PRN ×2 (10:33→11:35)
[2017-04-26] MEDS: POTASSIUM CHLORIDE 10 MEQ, LIDOCAINE 2% INJ 10 MG in SODIUM CHLORIDE 0.9% 100 ML IVPB SCH ×4 (11:31→15:00)
[2017-04-26] MEDS: HYDROmorphone 1 MG/ML 1 ML SYRINGE IVP PRN (11:49)
--- NOTE | 2017-04-26 15:01 | CT ---
EXAMINATION TYPE: CT abdomen pelvis w con DATE OF EXAM: 04/26/2017 COMPARISON: NONE INDICATION: abdominal pain and distention post op colon procedure DLP: 1752 mGycm, Automated exposure control for dose reduction was used. CONTRAST: 100 mL of Omnipaque 300. Study performed with Oral Contrast TECHNIQUE: Axial images were obtained from above the diaphragm to the pubic rami in the axial plane a t 5 mm thick sections. Reconstructed images are reviewed on the computer in the coronal plane. FINDINGS: Limited CT sections are obtained the lung bases. Small bilateral pleural effusions are present. Anna Marie cent compressive atelectasis is present.. CT ABDOMEN: Ascites is within the abdomen adjacent to the liver and the spleen. Some fluid is within the paracolic gutter on the left. Fluid is within the left hemipelvis. Liver: Normal Spleen: Normal Pancreas: Atrophic Adrenal glands: The adrenal glands are normal. Gallbladder: Normal Kidneys: No masses are evident. No hydronephrosis is present. No cysts are present. Delayed images were obtained through the kidneys, which remain unremarkable. Aorta: Vascular calcification is within the aorta. Inferior vena cava: Normal. CT PELVIS: There is a left lower quadrant ostomy. A few diverticular changes are within the descending colon. Th ere are loops of bowel which are incompletely distended or lack oral contrast limiting their evaluati on. Oral contrast extends to the distal small bowel loops. Fecal debris is within the rectal stump. S urgical suture in the mid sigmoid is identified. Appendix: Not identified Urinary bladder: Small amount of free air is within the urinary bladder Genitourinary structures: Free fluid is in the pelvis. Prostate is normal. Osseous structures: No suspicious lytic or sclerotic lesions. IMPRESSIONS: 1. Status post the colon resection. Colostomy is in the left lower quadrant. 2. Abundant fluid within the abdomen ascites and hemorrhage is within the differential. 3. Small amount of free air within the urinary bladder. Correlate for recent instrumentation.
[2017-04-26] MEDS: ATORVASTATIN 80 MG TAB PO SCH (20:11)
[2017-04-27] MEDS: HYDROmorphone 1 MG/ML 1 ML SYRINGE IVP PRN ×3 (00:12→19:32)
[2017-04-27] MEDS: SODIUM CHLORIDE 0.9% 1,000 ML IV SCH ×2 (04:48→11:37)
[2017-04-27] MEDS: PANTOPRAZOLE 40 MG/10 ML VIAL IV SCH (07:30)
[2017-04-27] MEDS: SUCRALFATE 1 GM TAB PO SCH ×3 (07:30→19:25)
[2017-04-27] MEDS: ATENOLOL 50 MG TAB PO SCH (07:30)
[2017-04-27] MEDS: hydrALAZINE HCL 50 MG TAB PO SCH ×2 (07:31→20:44)
[2017-04-27] MEDS: ASPIRIN 81 MG PO SCH (07:31)
[2017-04-27] MEDS: FUROSEMIDE 40 MG TAB PO SCH (07:31)
[2017-04-27] MEDS: clonazePAM 1 MG TAB PO SCH ×2 (07:33→20:45)
[2017-04-27] MEDS: PIPERACILLIN-TAZOBACTAM 3.375 GM in DEXTROSE/WATER 1 50ML.BAG IVPB SCH ×2 (07:34→15:58)
[2017-04-27 07:38] LABS: CH 30.8; CHCM 32.9; HCT 24.8 % (39.0-53.0); HDW 2.94; MCH 30.5 pg (25.0-35.0); MCHC 32.3 g/dL (31.0-37.0); MCV 94.2 fL (80.0-100.0); Mean Platelet Volume 8.3; RBC 2.63 m/uL (4.30-5.90); RDW 14.5 % (11.5-15.5); WBC 7.4 k/uL (3.8-10.6)
[2017-04-27 08:06] LABS: ALT 29 U/L (21-72); AST 19 U/L (17-59); Alkaline Phosphatase 62 U/L (38-126); Anion Gap 6 mmol/L; Blood Urea Nitrogen 4 mg/dL (9-20); Calcium 8.1 mg/dL (8.4-10.2); Carbon Dioxide 29 mmol/L (22-30); Chloride 101 mmol/L (98-107); Glucose 101 mg/dL (74-99); Non-African American GFR(MDRD) >60 (>60 ml/min/1.73 sqM); Potassium 3.5 mmol/L (3.5-5.1); Sodium 136 mmol/L (137-145); Total Bilirubin 0.8 mg/dL (0.2-1.3)
[2017-04-27] MEDS ORDERED: HYDROmorphone 1 MG/ML 1 ML SYRINGE IVP STA (09:06)
--- NOTE | 2017-04-27 18:57 | PN ---
PROGRESS NOTE DATE OF SERVICE: 04/27/2007 I am covering for Dr. Prince. INTERVAL HISTORY: This 56-year-old gentleman admitted with diverticulitis and colon perforation is improving significantly. Surgery is following the patient closely. The most recent abdominal pelvis scan showed some ascites and bleeding was suspected but hemoglobin is rather stable. Surgery is following the patient on a conservative line of basis. Hemoglobin 6.7, after transfusion stable is at 8. Sodium is 136. PAST MEDICAL HISTORY: Reviewed. REVIEW OF SYSTEMS: Cardiovascular: No angina or palpitations. Respiration: As mentioned earlier. GI as mentioned earlier. : As mentioned earlier. Central nervous system: No numbness or weakness. CURRENT MEDICATIONS: Reviewed and include: 1. Tylenol 650 q.6h p.r.n. 2. Ventolin 2.5 q6h q.i.d. p.r.n. 3. Aspirin 81 mg daily. 4. Tenormin 100 mg. 5. Lipitor 80 mg. 6. Klonopin 1 mg b.i.d. 7. Lasix 40 mg. 8. Apresoline. 9. Dilaudid. 10.Zofran. 11.Oxy-IR. 12.Carafate. PHYSICAL EXAM: Patient is alert, oriented x2. Pulse 60. Blood pressure 140/72, respirations 16, temperature 98.4, pulse ox 97% on room air. HEENT: Conjunctivae normal. Oral mucosa moist. Neck is no jugular venous distention. No carotid bruit. No lymph node enlargement. Cardiovascular system is S1, S2 muffled. Respiratory: Breath sounds diminished in the bases. No rhonchi. No crackles. ABDOMEN: Soft, obese, slightly distended. Otherwise no guarding, no rigidity. No mass palpable. Ostomy present. Nervous system: No focal deficits. LABS: At this time shows: Hemoglobin is 8, WBC 7.4, sodium 136. ASSESSMENT: 1. Acute colonic perforation status post Snehal procedure with lysis of adhesions for perforated sigmoid colon. 2. Anemia rule out acute blood loss anemia. 3. Hyponatremia. 4. History of chronic obstructive pulmonary disease. 5. Gastroesophageal reflux disease. 6. Myocardial infarction. 7. History of coronary artery disease/stent. RECOMMENDATIONS AND DISCUSSION: Recommend to continue current medications, continue symptomatic treatment. Otherwise at this time, the patient is on Ecotrin. On broad-spectrum IV antibiotics. The patient appears to be tolerating clear liquids at this time. Surgery is following the patient closely. Repeat labs will be ordered. Medically stable currently but overall prognosis guarded because of multiple complex medical issues. Further recommendations to follow. MMODL / IJN: [id number] /
[2017-04-27] MEDS: ATORVASTATIN 80 MG TAB PO SCH (20:45)
[2017-04-28] MEDS: PIPERACILLIN-TAZOBACTAM 3.375 GM in DEXTROSE/WATER 1 50ML.BAG IVPB SCH ×4 (01:00→23:47)
[2017-04-28 07:41] LABS: Basophils # (A) 0.1 k/uL (0-0.2); Basophils % (A) 1 %; CH 30.7; CHCM 33.1; Eosinophils # (A) 0.2 k/uL (0-0.7); Eosinophils % (A) 3 %; HCT 24.5 % (39.0-53.0); HDW 3.05; Luc # (Auto) 0.09; Luc % (Auto) 1; Lymphocytes # (A) 1.6 k/uL (1.0-4.8); Lymphocytes % (A) 24 %; MCH 30.7 pg (25.0-35.0); MCHC 32.8 g/dL (31.0-37.0); MCV 93.5 fL (80.0-100.0); Mean Platelet Volume 8.4; Monocytes # (A) 0.3 k/uL (0-1.0); Monocytes % (A) 5 %; Neutrophils # (A) 4.4 k/uL (1.3-7.7); Neutrophils % (A) 67 %; RBC 2.62 m/uL (4.30-5.90); RDW 14.7 % (11.5-15.5); WBC 6.6 k/uL (3.8-10.6); WBC (Perox) 7.29
[2017-04-28 08:10] LABS: Anion Gap 8 mmol/L; Blood Urea Nitrogen 4 mg/dL (9-20); Carbon Dioxide 30 mmol/L (22-30); Chloride 98 mmol/L (98-107); Glucose 85 mg/dL (74-99); Non-African American GFR(MDRD) >60 (>60 ml/min/1.73 sqM); Potassium 3.3 mmol/L (3.5-5.1); Sodium 136 mmol/L (137-145)
[2017-04-28] MEDS: SODIUM CHLORIDE 0.9% 1,000 ML IV SCH (08:42)
[2017-04-28] MEDS: SUCRALFATE 1 GM TAB PO SCH ×3 (08:42→16:51)
[2017-04-28] MEDS: FUROSEMIDE 40 MG TAB PO SCH (08:42)
[2017-04-28] MEDS: ATENOLOL 50 MG TAB PO SCH (08:42)
[2017-04-28] MEDS: ASPIRIN 81 MG PO SCH (08:43)
[2017-04-28] MEDS: hydrALAZINE HCL 50 MG TAB PO SCH ×2 (08:43→21:26)
[2017-04-28] MEDS: PANTOPRAZOLE 40 MG TABLET PO SCH (08:43)
[2017-04-28] MEDS: clonazePAM 1 MG TAB PO SCH ×2 (08:46→21:26)
[2017-04-28] MEDS: 0.9% NACL WITH KCL 20 MEQ/L 1,000 ML IV SCH ×2 (09:06→23:49)
--- NOTE | 2017-04-28 09:25 | P.PN ---
Subjective Principal diagnosis: Status post exploratory laparotomy and Ferris's procedure. 56-year-old patient seen and examined at bedside. He states his abdominal pain and pressure are about the same. He denies nausea. He denies vomiting. He has no output from his ostomy at this time. He states that he had some clear liquids for breakfast this morning and that caused some mild pain. He denies any difficulty with urination. Objective - Vital Signs Vital signs: Vital Signs Temp 97.8 F 04/28/17 07:54 Pulse 62 04/28/17 07:54 Resp 17 04/28/17 07:54 BP 123/61 04/28/17 07:54 Pulse Ox 96 04/28/17 07:54 Intake & Output 04/27/17 04/28/17 04/28/17 18:59 06:59 18:59 Output Total 550 Balance -550 Output: Urine 500 Stool 50 Other: Voiding Method Urinal Urinal # Voids 2 - Constitutional General appearance: Present: cooperative, no acute distress - EENT Eyes: Present: EOMI, PERRLA ENT: Present: hearing grossly normal - Neck Neck: Present: normal ROM. Absent: lymphadenopathy, stridor - Respiratory Details: No difficulty with respiration - Cardiovascular Rhythm: regular Heart sounds: normal: S1, S2 - Gastrointestinal Gastrointestinal Comment(s): Soft, tenderness improved from previous day, distention mildly improved from previous day, no rebound, no guarding, incision site clean dry and intact, ostomy pink and patent. - Integumentary Integumentary: Present: normal turgor - Psychiatric Psychiatric: Present: A&O x's 3, appropriate affect, intact judgment & insight - Labs CBC & Chem 7: 04/28/17 06:30 04/28/17 06:30 Labs: Abnormal Lab Results - Last 24 Hours (Table) 04/28/17 04/28/17 Range/Units 06:30 06:30 RBC 2.62 L (4.30-5.90) m/uL Hgb 8.0 L (13.0-17.5) gm/dL Hct 24.5 L (39.0-53.0) % Sodium 136 L (137-145) mmol/L Potassium 3.3 L (3.5-5.1) mmol/L BUN 4 L (9-20) mg/dL Creatinine 0.60 L (0.66-1.25) mg/dL Calcium 8.0 L (8.4-10.2) mg/dL Microbiology - Last 24 Hours (Table) 04/21/17 22:20 Blood Culture - Final Blood No Growth after 144 hours Assessment and Plan (1) Diverticulitis of colon with perforation Status: Acute Plan: Status post exploratory laparotomy with Ferris's procedure Concern after hemoglobin drop, currently hemoglobin has maintained at 8 Will continue to follow CBC Pain control Keep patient on clear liquid diet at this time due to pain after eating Electrolytes reviewed and adjustments made with IV fluids Continue to ambulate DVT and GI prophylaxis
[2017-04-28] MEDS: HYDROmorphone 1 MG/ML 1 ML SYRINGE IVP PRN (11:20)
[2017-04-28] MEDS: ATORVASTATIN 80 MG TAB PO SCH (21:26)
--- NOTE | 2017-04-29 05:52 | PN ---
PROGRESS NOTE DATE OF SERVICE: 04/28/2017 I am covering for Dr. Prince. This 56-year-old gentleman who was admitted with acute colonic perforation also had surgery. The patient is still complaining of pain. Patient had abdominal ascites also. The possibility of hematemesis considered, but however hemoglobin is stable at this time. Currently hemoglobin is 8 at this time, exactly same like yesterday. Surgery is following the patient closely. PAST MEDICAL HISTORY: Reviewed. REVIEW OF SYSTEMS: CARDIOVASCULAR: As mentioned earlier. RESPIRATORY: As mentioned earlier. GI: No nausea. : No dysuria. NERVOUS SYSTEM: No numbness or weakness. CURRENT MEDICATIONS: Current medications are reviewed and include: 1. Tylenol 650 q.6 p.r.n. 2. Ventolin q.i.d. and p.r.n. 3. Aspirin 81 mg p.o. daily. 4. Tenormin 100 mg p.o. daily. 5. Lipitor 80 mg p.o. q.h.s. 6. Klonopin 1 mg b.i.d. p.r.n. 7. Lasix 40 mg p.o. daily. 8. Apresoline. 9. Dilaudid. 10.Narcan. 11.Oxy-IR. 12.Zosyn. 13.Carafate. PHYSICAL EXAM: Patient is alert and oriented x3. Pulse is 64, blood pressure 129/66, respiration 18, temperature 98.6, pulse ox 98% room air. HEENT: Conjunctivae. NECK: No jugular venous distention. CARDIOVASCULAR: S1 and S2 muffled. RESPIRATORY: Breath sounds diminished at the bases. A few scattered rhonchi and crackles. ABDOMEN: Soft, obese. Ascites present. Status post surgery. LEGS: No edema, no swelling. NERVOUS SYSTEM: No focal deficits. LABS: WBC 6.6, hemoglobin 8. Sodium 136, potassium ntd_. ASSESSMENT: 1. Acute chronic perforation, status post Snehal procedure with lysis of adhesions for perforated sigmoid colon. 2. Anemia, rule out acute blood loss anemia. 3. Hyponatremia. 4. Ascites and abdominal distention on new CAT scan. 5. History of chronic obstructive pulmonary disease. 6. Gastroesophageal reflux disease. 7. History myocardial infarction. 8. History of coronary artery disease with stent. RECOMMENDATIONS AND DISCUSSION: Recommend to continue current medications, continue to monitor and symptomatic treatment. Otherwise at this time I recommend continue with current medications and I would also recommend close followup with Surgery. Repeat hemoglobin. Dr. Prince will follow. Prognosis guarded. MMBABAKL / IJN: [id number] / MTDD
[2017-04-29 07:08] LABS: Anion Gap 7 mmol/L; Carbon Dioxide 24 mmol/L (22-30); Chloride 101 mmol/L (98-107); Glucose 83 mg/dL (74-99); Non-African American GFR(MDRD) >60 (>60 ml/min/1.73 sqM); Sodium 132 mmol/L (137-145)
[2017-04-29 07:13] LABS: Blood Urea Nitrogen 5 mg/dL (9-20); Potassium 3.7 mmol/L (3.5-5.1)
[2017-04-29] MEDS: PIPERACILLIN-TAZOBACTAM 3.375 GM in DEXTROSE/WATER 1 50ML.BAG IVPB SCH ×3 (07:26→23:51)
[2017-04-29] MEDS: PANTOPRAZOLE 40 MG TABLET PO SCH (07:27)
[2017-04-29] MEDS: HYDROmorphone 1 MG/ML 1 ML SYRINGE IVP PRN (07:29)
[2017-04-29 08:33] LABS: Basophils % (A) 1 %; CH 29.8; CHCM 32.1; Eosinophils # (A) 0.2 k/uL (0-0.7); Eosinophils % (A) 4 %; HCT 24.1 % (39.0-53.0); HDW 3.24; HGB 7.8 gm/dL (13.0-17.5); Hypochromasia Slight; Luc % (Auto) 2; Lymphocytes # (A) 1.4 k/uL (1.0-4.8); Lymphocytes % (A) 26 %; MCH 30.3 pg (25.0-35.0); MCHC 32.5 g/dL (31.0-37.0); MCV 93.4 fL (80.0-100.0); Mean Platelet Volume 7.8; Monocytes # (A) 0.4 k/uL (0-1.0); Monocytes % (A) 7 %; Neutrophils # (A) 3.3 k/uL (1.3-7.7); Neutrophils % (A) 61 %; RBC 2.59 m/uL (4.30-5.90); WBC 5.4 k/uL (3.8-10.6); WBC (Perox) 5.76
[2017-04-29] MEDS ORDERED: HYDROmorphone 1 MG/ML 1 ML SYRINGE IM PRN (09:40)
--- NOTE | 2017-04-29 09:43 | P.PN ---
Subjective Principal diagnosis: Continue care/postop day #2 for diverticular disease. This continue present on a 56-year-old white male who is postop day #7 for diverticulitis with perforation. The patient he will did drop yesterday. H&H is 7.8 No significant chest pain stated. Ostomy site looks fine otherwise. The patient is complaining of left lower quadrant pain Ostomy site. Appetite is poor otherwise. Objective - Vital Signs Vital signs: Vital Signs Temp 97.5 F L 04/29/17 07:00 Pulse 61 04/29/17 07:00 Resp 12 04/29/17 07:00 BP 127/61 04/29/17 07:00 Pulse Ox 95 04/29/17 07:00 Intake & Output 04/28/17 04/29/17 04/29/17 18:59 06:59 18:59 Intake Total 420 Output Total 900 50 Balance -480 -50 Intake: Oral 420 Output: Urine 900 Stool 50 Other: Voiding Method Urinal Urinal # Voids 2 - Constitutional General appearance: Present: obese - EENT Eyes: Absent: abnormal pupil - Respiratory Respiratory: bilateral: CTA - Cardiovascular Rhythm: regular - Gastrointestinal Gastrointestinal Comment(s): Ostomy site noted General gastrointestinal: Present: tenderness - Labs CBC & Chem 7: 04/29/17 08:14 04/29/17 06:31 Labs: Abnormal Lab Results - Last 24 Hours (Table) 04/29/17 04/29/17 Range/Units 06:31 08:14 RBC 2.59 L (4.30-5.90) m/uL Hgb 7.8 L (13.0-17.5) gm/dL Hct 24.1 L (39.0-53.0) % Sodium 132 L (137-145) mmol/L BUN 5 L (9-20) mg/dL Creatinine 0.56 L (0.66-1.25) mg/dL Calcium 8.0 L (8.4-10.2) mg/dL Assessment and Plan (1) CAD (coronary artery disease) Status: Acute (2) History of myocardial infarction Status: Acute (3) Diverticulitis of colon with perforation Status: Acute Plan: POst op anemia. Check cbc in AM Continue pain control. Otherwise, we'll continue follow with surgery.
--- NOTE | 2017-04-29 10:57 | P.PN ---
<Vanessa Bui - Last Filed: 04/29/17 13:52> Subjective 56-year-old seen and examined sitting up in a chair ostomy teaching in progress. Daughter at bedside. Nursing reports patient has been up ambulating in the hallway. no gas or no stool from the ostomy. Patient reports when he takes clear liquids it causes abdominal cramping patient reports having left lower quadrant discomfort "it's been like that for the last several days Patient's on his home dose oxycodone 40 mg every 6 hours for chronic pain at home Noted the hemoglobin this morning 7.8 hemoglobin the day before with 8. on April 25 hemoglobin was 6.9. Patient did receive 1 unit of packed red blood cells patient states he has been up ambulating in the hallway several times this morning patient did have a CAT scan of the abdomen pelvis done on April 26. Summary small amount of free air within the urinary bladder. Abundant fluid within the abdomen ascites and hemorrhage is within the differential. postop Snehal's procedure with lysis of adhesions for perforated sigmoid colon done on the Objective - Vital Signs Vital signs: Vital Signs Temp 97.5 F L 04/29/17 07:00 Pulse 61 04/29/17 07:00 Resp 12 04/29/17 07:00 BP 127/61 04/29/17 07:00 Pulse Ox 95 04/29/17 07:00 Intake & Output 04/28/17 04/29/17 04/29/17 18:59 06:59 18:59 Intake Total 420 Output Total 900 50 Balance -480 -50 Intake: Oral 420 Output: Urine 900 Stool 50 Other: Voiding Method Urinal Urinal # Voids 2 - Exam Physical exam 56-year-old male sitting up in a chair ostomy teaching in progress by the ostomy educator nurse daughter at bedside Lungs essentially clear adequate air movement on room air Heart S1-S2 audible regular Abdomen ostomy stoma pink left lower quadrant no stool no gas few hypoactive bowel tones slight tenderness left lower quadrant slightly distended no facial grimacing with palpitation to the abdominal wall. Surgical dressing removed surgical incision felix in place 3 areas with packing in place scant amount of drainage no odor suture line well approximated no redness. Patient reports when he takes clear liquids it does cause cramping Extremities no edema noted - Labs CBC & Chem 7: 04/29/17 08:14 04/29/17 06:31 Labs: Abnormal Lab Results - Last 24 Hours (Table) 04/29/17 04/29/17 Range/Units 06:31 08:14 RBC 2.59 L (4.30-5.90) m/uL Hgb 7.8 L (13.0-17.5) gm/dL Hct 24.1 L (39.0-53.0) % Sodium 132 L (137-145) mmol/L BUN 5 L (9-20) mg/dL Creatinine 0.56 L (0.66-1.25) mg/dL Calcium 8.0 L (8.4-10.2) mg/dL Assessment and Plan Plan: Impression Present on admission left lower quadrant abdominal pain suspect due to diverticulitis of the colon with perforated sigmoid colon Status post Snehal's procedure with lysis of adhesions done on 22 of April Known coronary artery disease Chronic pain with opiate dependency Chronic nicotine dependency Postop anemia unable to determine no evidence of acute GI blood loss Wound culture peritoneal fluid positive E. coli Postop acute blood loss anemia hemoglobin 6.9 necessitating 1 unit of packed red blood cells infused via peripheral vein on April 25 Plan IV Zosyn as ordered for wound care culture positive for E. coli Start ostomy teaching per ostomy nurse Continue postop surgical care Pain control DVT and GI prophylaxis Increase activity Monitor labs Encourage use of incentive spirometer Resume home oxycodone dose. Stop iv dilaudid start [place] and evaluate Continue PT OT The above impression and plan of care have been discussed and directed by signing physician. Vanessa Bui nurse practitioner acting as scribe for signing physician. <Ubaldo Rodriguez - Last Filed: 04/29/17 18:15> Objective - Vital Signs Vital signs: Vital Signs Temp 98.5 F 04/29/17 14:21 Pulse 58 L 04/29/17 14:21 Resp 16 04/29/17 14:21 BP 109/47 04/29/17 14:21 Pulse Ox 95 04/29/17 14:21 Intake & Output 04/28/17 04/29/17 04/29/17 18:59 06:59 18:59 Intake Total 420 720 Output Total 900 110 Balance -480 610 Intake: Intake, IV Titration 600 Amount 0.9% NaCl with KCl 20 Meq 600 /l 1,000 ml @ 75 mls/hr IV .[id number] [facility] Rx#: [id number] Oral 420 120 Output: Urine 900 Stool 110 Other: Voiding Method Urinal Urinal # Voids 2 3 - Labs CBC & Chem 7: 04/29/17 08:14 04/29/17 06:31 Labs: Abnormal Lab Results - Last 24 Hours (Table) 04/29/17 04/29/17 Range/Units 06:31 08:14 RBC 2.59 L (4.30-5.90) m/uL Hgb 7.8 L (13.0-17.5) gm/dL Hct 24.1 L (39.0-53.0) % Sodium 132 L (137-145) mmol/L BUN 5 L (9-20) mg/dL Creatinine 0.56 L (0.66-1.25) mg/dL Calcium 8.0 L (8.4-10.2) mg/dL Assessment and Plan (1) Diverticulitis of colon with perforation Status: Acute Plan: As above. Patient has had some pain with oral intake. He has not had significant stool through the ostomy although is passing flatus. His CAT scan from Saturday was reviewed and does reveal some free fluid in the abdomen that may likely be on the basis of prior hemorrhage. No active bleeding is suspected. His hemoglobin has remained stable. His white blood cell count is normal. We'll check abdominal x-rays tomorrow. The patient may be experiencing either partial small bowel obstruction or ileus. Continue current diet this evening. Encouraged the patient to increase his activity level. Minimize narcotic use as able. Continue antibiotics for E. coli positive cultures.
[2017-04-29] MEDS: SUCRALFATE 1 GM TAB PO SCH ×3 (11:08→17:50)
[2017-04-29] MEDS: ASPIRIN 81 MG PO SCH (11:08)
[2017-04-29] MEDS: FUROSEMIDE 40 MG TAB PO SCH (11:08)
[2017-04-29] MEDS: clonazePAM 1 MG TAB PO SCH ×2 (11:08→20:05)
[2017-04-29] MEDS: ATENOLOL 50 MG TAB PO SCH (11:08)
[2017-04-29] MEDS: hydrALAZINE HCL 50 MG TAB PO SCH ×2 (11:10→20:05)
[2017-04-29] MEDS: 0.9% NACL WITH KCL 20 MEQ/L 1,000 ML IV SCH (12:49)
[2017-04-29] MEDS: HYDROcodone/APAP 7.5-325MG 1 EACH TAB PO PRN (17:50)
[2017-04-29] MEDS: ACETAMINOPHEN TAB 325 MG TAB PO PRN (20:05)
[2017-04-29] MEDS: ATORVASTATIN 80 MG TAB PO SCH (20:05)
[2017-04-30] MEDS: HYDROcodone/APAP 7.5-325MG 1 EACH TAB PO PRN ×4 (00:01→19:08)
[2017-04-30] MEDS: 0.9% NACL WITH KCL 20 MEQ/L 1,000 ML IV SCH ×2 (03:07→16:24)
[2017-04-30] MEDS: ACETAMINOPHEN TAB 325 MG TAB PO PRN (04:13)
[2017-04-30 07:20] LABS: CH 29.4; CHCM 31.9; HCT 25.6 % (39.0-53.0); HDW 3.44; HGB 8.4 gm/dL (13.0-17.5); Hypochromasia Slight; MCH 30.4 pg (25.0-35.0); MCHC 32.8 g/dL (31.0-37.0); MCV 92.7 fL (80.0-100.0); Poikilocytosis Slight; RBC 2.76 m/uL (4.30-5.90); RDW 13.8 % (11.5-15.5); WBC 5.8 k/uL (3.8-10.6)
[2017-04-30 07:25] LABS: ALT 27 U/L (21-72); AST 21 U/L (17-59); Alkaline Phosphatase 65 U/L (38-126); Anion Gap 8 mmol/L; Blood Urea Nitrogen 6 mg/dL (9-20); Calcium 8.1 mg/dL (8.4-10.2); Carbon Dioxide 27 mmol/L (22-30); Chloride 100 mmol/L (98-107); Glucose 98 mg/dL (74-99); Non-African American GFR(MDRD) >60 (>60 ml/min/1.73 sqM); Potassium 3.9 mmol/L (3.5-5.1); Sodium 135 mmol/L (137-145); Total Bilirubin 1.7 mg/dL (0.2-1.3); Total Protein 5.7 g/dL (6.3-8.2)
--- NOTE | 2017-04-30 08:07 | P.PN ---
<HaoVanessa M - Last Filed: 04/30/17 08:01> Subjective The 56-year-old male seen and examined at bedside. Patient is upset this morning verbalizing pain medication "not helping my back pain. Patient has chronic back pain opiate dependent home on oxycodone [id number]. Additionally patient reports left lower quadrant "burning sensation worse this morning and before "every time I tried to drink or eat something acute pain. Patient states she's been up ambulating in the pastor. Reports no nausea sensation no vomiting. No stool from the ostomy. Hemoglobin this morning 8.4. White count 5.8. Afebrile. Hemoglobin the day before 7.8. Electrolytes within normal limits x-ray is pending. postop Snehal's procedure with lysis of adhesions for perforated sigmoid colon done on the Objective - Vital Signs Vital signs: Vital Signs Temp 98.6 F 04/30/17 00:54 Pulse 61 04/30/17 00:54 Resp 17 04/30/17 00:54 BP 123/55 04/30/17 00:54 Pulse Ox 97 04/30/17 00:54 Intake & Output 04/29/17 04/30/17 04/30/17 18:59 06:59 18:59 Intake Total 820 Output Total 110 Balance 710 Intake: Intake, IV Titration 600 Amount 0.9% NaCl with KCl 20 Meq 600 /l 1,000 ml @ 75 mls/hr IV .[id number] [facility] Rx#: [id number] Oral 220 Output: Stool 110 Other: Voiding Method Toilet Urinal # Voids 3 1 - Exam Physical exam 56-year-old male resting in bed states having a lot of pain in the left lower quadrant this morning a burning sensation" reports having lower back pain patient reports is chronic Lungs essentially clear adequate air movement on room air Heart S1-S2 audible regular Abdomen ostomy lower quadrant no stool noted in the ostomy bag stoma was pink reports having tenderness left lower quadrant dressing removed from surgical site felix in place 3 areas with packing in place. No redness along the suture line. Suture line well approximated. A few hypoactive bowel tones noted reports no nausea. Extremities Venodyne's on to the bilateral lower extremities - Labs CBC & Chem 7: 04/30/17 06:27 04/30/17 06:27 Labs: Abnormal Lab Results - Last 24 Hours (Table) 04/29/17 04/30/17 04/30/17 Range/Units 08:14 06:27 06:27 RBC 2.59 L 2.76 L (4.30-5.90) m/uL Hgb 7.8 L 8.4 L (13.0-17.5) gm/dL Hct 24.1 L 25.6 L (39.0-53.0) % Sodium 135 L (137-145) mmol/L BUN 6 L (9-20) mg/dL Creatinine 0.59 L (0.66-1.25) mg/dL Calcium 8.1 L (8.4-10.2) mg/dL Total Bilirubin 1.7 H (0.2-1.3) mg/dL Total Protein 5.7 L (6.3-8.2) g/dL Albumin 2.8 L (3.5-5.0) g/dL Assessment and Plan Plan: Impression Present on admission left lower quadrant abdominal pain suspect due to diverticulitis of the colon with perforated sigmoid colon Status post Snehal's procedure with lysis of adhesions done on 22 of April Known coronary artery disease Chronic pain with opiate dependency Chronic nicotine dependency Postop anemia unable to determine no evidence of acute GI blood loss Wound culture peritoneal fluid positive E. coli Postop acute blood loss anemia hemoglobin 6.9 necessitating 1 unit of packed red blood cells infused via peripheral vein on April 25 Plan Follow-up on pending abdominal x-ray this morning IV Zosyn as ordered for wound care culture positive for E. coli Start ostomy teaching per ostomy nurse Continue postop surgical care Pain control DVT and GI prophylaxis Increase activity Monitor labs Encourage use of incentive spirometer Resume home oxycodone dose. Stop iv dilaudid start [place] and evaluate Continue PT OT The above impression and plan of care have been discussed and directed by signing physician. Vanessa Bui nurse practitioner acting as scribe for signing physician. <Ubaldo Rodriguez - Last Filed: 04/30/17 12:46> Objective - Vital Signs Vital signs: Vital Signs Temp 97.9 F 04/30/17 07:00 Pulse 66 04/30/17 07:00 Resp 12 04/30/17 07:00 BP 142/63 04/30/17 07:00 Pulse Ox 98 04/30/17 07:00 Intake & Output 04/29/17 04/30/17 04/30/17 18:59 06:59 18:59 Intake Total 820 Output Total 110 Balance 710 Weight 99.79 kg Intake: Intake, IV Titration 600 Amount 0.9% NaCl with KCl 20 Meq 600 /l 1,000 ml @ 75 mls/hr IV .[id number] [facility] Rx#: [id number] Oral 220 Output: Stool 110 Other: Voiding Method Toilet Urinal # Voids 3 1 - Labs CBC & Chem 7: 04/30/17 06:27 04/30/17 06:27 Labs: Abnormal Lab Results - Last 24 Hours (Table) 04/30/17 04/30/17 Range/Units 06:27 06:27 RBC 2.76 L (4.30-5.90) m/uL Hgb 8.4 L (13.0-17.5) gm/dL Hct 25.6 L (39.0-53.0) % Sodium 135 L (137-145) mmol/L BUN 6 L (9-20) mg/dL Creatinine 0.59 L (0.66-1.25) mg/dL Calcium 8.1 L (8.4-10.2) mg/dL Total Bilirubin 1.7 H (0.2-1.3) mg/dL Total Protein 5.7 L (6.3-8.2) g/dL Albumin 2.8 L (3.5-5.0) g/dL Assessment and Plan (1) Diverticulitis of colon with perforation Status: Acute Plan: As above. Patient appears to be doing better. He is complaining of some burning pain lateral to his ostomy. No fevers. White blood cell count is normal. Flatus is present in the ostomy appliance. No stools. Today's x-rays show no evidence of obstruction with some contrast retained throughout the colon. Patient still having some discomfort with eating. Hemoglobin today 0.4. Will advance diet. Ambulate. At stool softeners.
[2017-04-30] MEDS: PIPERACILLIN-TAZOBACTAM 3.375 GM in DEXTROSE/WATER 1 50ML.BAG IVPB SCH ×2 (08:47→16:20)
[2017-04-30] MEDS: FUROSEMIDE 40 MG TAB PO SCH (08:51)
[2017-04-30] MEDS: hydrALAZINE HCL 50 MG TAB PO SCH ×2 (08:51→21:29)
[2017-04-30] MEDS: ATENOLOL 50 MG TAB PO SCH (08:51)
[2017-04-30] MEDS: clonazePAM 1 MG TAB PO SCH ×2 (08:51→21:29)
[2017-04-30] MEDS: PANTOPRAZOLE 40 MG TABLET PO SCH (08:51)
[2017-04-30] MEDS: SUCRALFATE 1 GM TAB PO SCH ×3 (08:51→19:08)
[2017-04-30] MEDS: ASPIRIN 81 MG PO SCH (08:51)
--- NOTE | 2017-04-30 10:01 | XR ---
2 view abdomen HISTORY: Postprandial pain and nausea Correlation to CT abdomen pelvis 04/26/2017 2 views of the abdomen submitted on 3 images. There is retained contrast material present within the colon. No evident pneumoperitoneum or bowel ob struction. Lung bases are clear. Degenerative disc changes are present in the visualized spine. Surgi dustin felix present in the midline in the infraumbilical region. Vascular calcifications are present. Postop change noted within the pelvis. There are bowel sutures present. Ostomy present in the left l ower quadrant. IMPRESSION: Nonobstructive bowel gas pattern. Of note, difficult to exclude an ampullary mass on prio r CT, correlate.
--- NOTE | 2017-04-30 10:31 | XR ---
EXAMINATION TYPE: XR chest 2V DATE OF EXAM: 04/30/2017 COMPARISON: Prior chest x-ray 02/19/2017 HISTORY: Postprandial pain and nausea TECHNIQUE: Frontal and lateral views of the chest are obtained. FINDINGS: There is some blunting of the posterior costophrenic angle on the left. No pneumothorax or pleural effusion. Patient is rotated. Cardiomediastinal silhouette, pulmonary vascularity and osvaldo a re stable. IMPRESSION: There may be left lower lobe atelectasis, difficult to exclude a small effusion. Follow- up suggested.
[2017-04-30] MEDS: MAGNESIUM HYDROXIDE 2,400 MG/10 ML CUP PO SCH ×2 (14:11→21:30)
[2017-04-30] MEDS: ATORVASTATIN 80 MG TAB PO SCH (21:29)
[2017-05-01] MEDS: HYDROcodone/APAP 7.5-325MG 1 EACH TAB PO PRN ×2 (00:37→05:38)
[2017-05-01] MEDS: PIPERACILLIN-TAZOBACTAM 3.375 GM in DEXTROSE/WATER 1 50ML.BAG IVPB SCH ×2 (00:37→09:02)
[2017-05-01] MEDS: ACETAMINOPHEN TAB 325 MG TAB PO PRN (05:09)
[2017-05-01] MEDS: 0.9% NACL WITH KCL 20 MEQ/L 1,000 ML IV SCH (05:10)
[2017-05-01 08:27] VITALS: BP 127/60; RESP 16; TEMP 98.1
[2017-05-01] MEDS: SUCRALFATE 1 GM TAB PO SCH (08:28)
[2017-05-01] MEDS: PANTOPRAZOLE 40 MG TABLET PO SCH (08:28)
[2017-05-01] MEDS: ATENOLOL 50 MG TAB PO SCH (08:29)
[2017-05-01] MEDS: hydrALAZINE HCL 50 MG TAB PO SCH (08:29)
[2017-05-01] MEDS: FUROSEMIDE 40 MG TAB PO SCH (08:29)
[2017-05-01] MEDS: ASPIRIN 81 MG PO SCH (08:29)
[2017-05-01] MEDS: MAGNESIUM HYDROXIDE 2,400 MG/10 ML CUP PO SCH (08:35)
[2017-05-01] MEDS: clonazePAM 1 MG TAB PO SCH (08:56)
[2017-05-01 09:36] LABS: Anion Gap 6 mmol/L; Basophils % (A) 1 %; Blood Urea Nitrogen 6 mg/dL (9-20); CH 29.1; CHCM 31.2; Calcium 8.1 mg/dL (8.4-10.2); Carbon Dioxide 26 mmol/L (22-30); Chloride 104 mmol/L (98-107); Eosinophils # (A) 0.2 k/uL (0-0.7); Eosinophils % (A) 4 %; Glucose 101 mg/dL (74-99); HDW 3.53; HGB 8.3 gm/dL (13.0-17.5); Hypochromasia Moderate; Luc % (Auto) 2; Lymphocytes # (A) 1.4 k/uL (1.0-4.8); Lymphocytes % (A) 29 %; MCH 29.9 pg (25.0-35.0); MCHC 31.8 g/dL (31.0-37.0); MCV 93.9 fL (80.0-100.0); Monocytes # (A) 0.3 k/uL (0-1.0); Monocytes % (A) 7 %; Neutrophils # (A) 2.8 k/uL (1.3-7.7); Neutrophils % (A) 58 %; Non-African American GFR(MDRD) >60 (>60 ml/min/1.73 sqM); Poikilocytosis Slight; Potassium 4.4 mmol/L (3.5-5.1); RBC 2.77 m/uL (4.30-5.90); RDW 13.9 % (11.5-15.5); Sodium 136 mmol/L (137-145); WBC 4.8 k/uL (3.8-10.6); WBC (Perox) 5.31
--- NOTE | 2017-05-01 10:52 | P.DS ---
Providers Date of admission: 04/22/17 04:06 Expected date of discharge: 05/01/17 Attending physician: Des Prince Consults: 04/22/17 04:07 Consult Physician Urgent Consulting Provider: Ubaldo Rodriguez Reason/Comments: diverticulitis with microperforation Do you want consulting provider notified?: Already Contacted Primary care physician: Des Prince - Discharge Diagnosis(es) (1) Diverticulitis of colon with perforation patient was admitted to the hospital with acute diverticulitis. The patient on CAT scan initially was found to have microperforation however during the first 24 hours his pain increased and he developed peritoneal signs. He was taken to the operating room for a Ferris's procedure. Postoperatively he was doing well initially however on postoperative day 2-3 his hemoglobin dropped and we suspected some degree of intra-abdominal hemorrhage. The patient had chronic pain issues preoperatively and his pain control postoperatively was somewhat challenging. He developed an ileus during the hospital stay that gradual has improved. He is now tolerating his diet. His ostomy is functioning well. His pain is the best been since he was admitted. He is afebrile. His white blood cell count is normal. His hemoglobin is 8.4. He received a total of 1 unit during this hospitalization. Plan is for discharge today with outpatient follow -up in 1 week. Patient will have home care arranged. He has 3 small wounds along his midline incision will be packed every 1-2 days. Current Visit: Yes Status: Acute Patient Condition at Discharge: Serious Plan - Discharge Summary New Discharge Prescriptions: New Amoxicillin/Potassium Clav [Augmentin 875-125 Tablet] 1 tab PO Q12HR #10 tab Sucralfate [Carafate] 1 gm PO AC-TID #90 tab Continue Nitroglycerin Sl Tabs [Nitrostat] 0.4 mg SUBLINGUAL Q5M PRN PRN Reason: Chest Pain hydrALAZINE HCL [Apresoline] 50 mg PO BID Furosemide [Lasix] 40 mg PO DAILY Aspirin EC [Ecotrin Low Dose] 81 mg PO DAILY clonazePAM [KlonoPIN] 1 mg PO BID Atorvastatin [Lipitor] 80 mg PO HS Albuterol Inhaler [Ventolin Hfa Inhaler] 1 - 2 puff INHALATION RT-Q6H PRN PRN Reason: Shortness Of Breath Atenolol [Tenormin] 100 mg PO DAILY Ibuprofen [Motrin] 800 mg PO BID No Action oxyCODONE HCL 40 mg PO Q6H Discharge Medication List Aspirin EC [Ecotrin Low Dose] 81 mg PO DAILY 11/21/15 [History] Furosemide [Lasix] 40 mg PO DAILY 11/21/15 [History] Nitroglycerin Sl Tabs [Nitrostat] 0.4 mg SUBLINGUAL Q5M PRN 11/21/15 [History] hydrALAZINE HCL [Apresoline] 50 mg PO BID 11/21/15 [History] clonazePAM [KlonoPIN] 1 mg PO BID 02/06/16 [History] oxyCODONE HCL 40 mg PO Q6H 02/06/16 [History] Albuterol Inhaler [Ventolin Hfa Inhaler] 1 - 2 puff INHALATION RT-Q6H PRN [History] Atenolol [Tenormin] 100 mg PO DAILY 04/21/17 [History] Atorvastatin [Lipitor] 80 mg PO HS 04/21/17 [History] Ibuprofen [Motrin] 800 mg PO BID 04/21/17 [History] Amoxicillin/Potassium Clav [Augmentin 875-125 Tablet] 1 tab PO Q12HR #10 tab [Rx] Sucralfate [Carafate] 1 gm PO AC-TID #90 tab 04/26/17 [Rx] Follow up Appointment(s)/Referral(s): Des Prince MD [Primary Care Provider] - 1-2 days [facility] Visiting Nurse, [NON-STAFF] - Ubaldo Rodriguez MD [Medical Doctor] - 1 Week Patient Instructions/Handouts: Diverticulitis (GEN), Colostomy Care (GEN), Diverticulitis Diet (GEN) Activity/Diet/Wound Care/Special Instructions: Colostomy Care Instructions: Last appliance (pouch ) change: 04/29/2017 Currently sent home with Colostomy Care products as follows: Patient will have three pouches as follows; Convatec one piece pouch cut to fit with filter #[id number] Accessories of skin preps (10) & ostomy powder Mr Banuelos will be receiving sample supplies from [employer] and [employer] for home use per request, Home health please arrange for disposable pouching system in 3-4 weeks as per Mr Banuelos's request and moldable or precut
[2017-05-01 11:58] VITALS: PULSE 63
--- NOTE | 2017-05-27 14:33 | P.PN ---
Progress Note - Text Progress Note Date: 05/27/17 response to inquiry Patient developed anemia postoperatively. A CAT scan did show some fluid in the abdomen.suspect acute blood loss anemia related to mild intra-abdominal hemorrhage postoperatively.
== END 2017-05-01 15:43 | disposition home health service (06) | DRG 330 ==
LOC: EC 21:09 → 3SUR 04-22 04:06
PROVIDERS: ADMIT Family Medicine; ATTEND Family Medicine
PROC: 0D1M0Z4 Bypass Descending Colon to Cutaneous, Open Approach (ICD-10-PCS; 2017-04-22)
PROC: 0DTN0ZZ Resection of Sigmoid Colon, Open Approach (ICD-10-PCS; principal; 2017-04-22 20:35)
PROC: 30233N1 Transfusion of Nonautologous Red Blood Cells into Peripheral Vein, Percutaneous Approach (ICD-10-PCS; 2017-04-25)
DX: K57.20 Diverticulitis of large intestine with perforation and abscess without bleeding (principal); R18.8 Other ascites; E87.1 Hypo-osmolality and hyponatremia; F11.20 Opioid dependence, uncomplicated; K56.7 Ileus, unspecified; D62 Acute posthemorrhagic anemia; I10 Essential (primary) hypertension; E78.5 Hyperlipidemia, unspecified; F17.200 Nicotine dependence, unspecified, uncomplicated; G89.29 Other chronic pain; I25.10 Atherosclerotic heart disease of native coronary artery without angina pectoris; I25.2 Old myocardial infarction; J44.9 Chronic obstructive pulmonary disease, unspecified; K21.9 Gastro-esophageal reflux disease without esophagitis; M06.9 Rheumatoid arthritis, unspecified; M10.9 Gout, unspecified; M19.90 Unspecified osteoarthritis, unspecified site; Z79.82 Long term (current) use of aspirin; Z79.899 Other long term (current) drug therapy; Z95.5 Presence of coronary angioplasty implant and graft; Z86.14 Personal history of Methicillin resistant Staphylococcus aureus infection; Z82.49 Family history of ischemic heart disease and other diseases of the circulatory system
CPT/HCPCS: 36415; 71020; 74000; 74020; 74177; 80048; 80053; 81003; 82150; 82550; 82553; 83605; 83690; 84484; 85025; 85027; 86850; 86900; 86901; 86920; 87040; 87070; 87075; 87077; 87186; 87205; 88307; 93005; 94760; 94762; 96374; 96375; 96376; 99285

== ENCOUNTER → 2017-06-10 | Outpatient (CLI) | payer MEDICARE, OTHER ==
--- NOTE | 2017-06-10 23:13 | MR ---
EXAMINATION TYPE: MR pancreas wo/w con DATE OF EXAM: 06/10/2017 COMPARISON: CT 04/26/2017, 04/02/2013, 09/29/2012 HISTORY: 56-year-old male Pancreas Mass Technique: Multiplanar, multisequence images of the abdomen were obtained before and after administra tion of 9 mL intravenous Gadavist gadolinium contrast. FINDINGS: The heart is upper limits of normal in size. No pericardial or pleural effusion. No focal liver lesion. The bile duct measures at the upper limits of normal in caliber at 5.9 mm. There is evidence of a pancreatic divisum. Mild diffuse prominence to the main pancreatic duct at 3 mm. The pancreas is atrophic without evidence for solid or cystic mass. Scattered prominent peripancreatic lymph nodes measuring up to 7 mm. Gastrohepatic ligament lymph nod e measures 8 mm. Retroperitoneal, retrocaval lymph nodes measure up to 9 mm. Gallbladder, adrenal glands, and kidneys appear within normal limits. There is mild splenomegaly at 1 4.0 cm. No gross bowel abnormality or ascites fluid. Moderate overall stool burden. Mild bilateral gynecomastia incidentally noted. Fusiform dilatation of the infrarenal abdominal aorta up to 2.3 cm. No rusty aneurysm. IMPRESSION: 1. Atrophic pancreas with pancreatic divisum. No suspicious pancreatic mass. 2. Scattered prominent upper abdominal lymph nodes measure up to 9 mm and are probably reactive/post inflammatory.
== END | disposition home or self-care (01) ==
LOC: RADMRIMAIN 11:41
PROVIDERS: ATTEND Surgery
DX: K86.89 Other specified diseases of pancreas (principal)
CPT/HCPCS: 74183; A9581

== ENCOUNTER → 2017-08-12 | Outpatient (CLI) | payer MEDICARE, OTHER ==
[2017-08-12 13:22] LABS: Basophils % (A) 0 %; Eosinophils # (A) 0.4 k/uL (0-0.7); Eosinophils % (A) 5 %; HCT 43.2 % (39.0-53.0); HGB 14.2 gm/dL (13.0-17.5); Lymphocytes # (A) 3.1 k/uL (1.0-4.8); Lymphocytes % (A) 37 %; MCH 29.8 pg (25.0-35.0); MCHC 32.9 g/dL (31.0-37.0); MCV 90.6 fL (80.0-100.0); Mean Platelet Volume 8.6; Monocytes # (A) 0.3 k/uL (0-1.0); Monocytes % (A) 4 %; Neutrophils # (A) 4.4 k/uL (1.3-7.7); Neutrophils % (A) 53 %; Platelet Count 202 k/uL (150-450); RBC 4.77 m/uL (4.30-5.90); RDW 15.2 % (11.5-15.5); WBC 8.3 k/uL (3.8-10.6)
[2017-08-12 13:35] LABS: ALT 28 U/L (21-72); AST 19 U/L (17-59); Blood Urea Nitrogen 7 mg/dL (9-20)
[2017-08-12 13:53] LABS: T4, Free (Free Thyroxine) 1.39 ng/dL (0.78-2.19)
== END | disposition home or self-care (01) ==
LOC: LABWHC1 12:28
PROVIDERS: ATTEND Dermatology
DX: L29.9 Pruritus, unspecified (principal)
CPT/HCPCS: 36415; 82565; 84439; 84443; 84450; 84460; 84520; 85025

== ENCOUNTER 2017-10-17 21:33 | Inpatient (IN) | payer MEDICARE, OTHER ==
[2017-10-17] MEDS ORDERED: ZIPRASIDONE 20 MG VIAL IM STA (21:45)
--- NOTE | 2017-10-17 21:54 | ED ---
General Adult HPI - General Chief complaint: Fall Stated complaint: Fall-Altered Mental Time Seen by Provider: 10/17/17 21:35 Source: patient, EMS, RN notes reviewed Mode of arrival: EMS Limitations: altered mental status - History of Present Illness Initial comments: Patient is an agitated 57-year-old male presenting to the emergency department by EMS with police escort. Patient admits to falling out of his chair around 4 AM. Patient states he did strike the back of his head. Patient does complain of headache and neck pain and right shoulder pain. Patient states he does have chronic pain. Patient states his doctor is not giving him enough pain medication. Patient has pain through his entire spine. Patient does have a rash. Family reported to police that patient does try to cut his lesions using his knife. Family reported that patient has been more agitated today. Patient became agitated and aggressive with police. Patient did pull a knife out against family and police. Patient was making suicidal and homicidal threats. Patient is very agitated during examination and tries to limit exam. - Related Data Home Medications Medication Instructions Recorded Confirmed Aspirin EC [Ecotrin Low Dose] 81 mg PO DAILY 11/21/15 10/17/17 Nitroglycerin Sl Tabs [Nitrostat] 0.4 mg SUBLINGUAL Q5M PRN 11/21/15 10/17/17 hydrALAZINE HCL [Apresoline] 50 mg PO BID 11/21/15 10/17/17 clonazePAM [KlonoPIN] 1 mg PO BID 02/06/16 10/17/17 oxyCODONE HCL 40 mg PO Q6H PRN 02/06/16 10/17/17 Albuterol Inhaler [Ventolin Hfa 1 - 2 puff INHALATION RT-Q6H PRN 04/21/17 Inhaler] Atenolol [Tenormin] 100 mg PO DAILY 04/21/17 10/17/17 Ibuprofen [Motrin] 800 mg PO BID 04/21/17 10/17/17 Amoxicillin 500 mg PO TID 10/17/17 10/17/17 Cetirizine HCl [Zyrtec] 10 mg PO DAILY PRN 10/17/17 10/17/17 Clindamycin Gel [Clindamycin 1 applic TOPICAL BID PRN 10/17/17 10/17/17 Phosphate] Diclofenac Sodium Gel [Voltaren 2 gm TOPICAL QID PRN 10/17/17 10/17/17 Gel] HYDROcodone/APAP 10-325MG [[place] 1 tab PO Q6H PRN 10/17/17 10/17/17 10-325] Halobetasol Propionate [Ultravate] 1 applic TOPICAL BID PRN 10/17/17 10/17/17 hydrOXYzine HCL [Atarax] 25 mg PO DAILY 10/17/17 10/17/17 Allergies Allergy/AdvReac Type Severity Reaction Status Date / Time No Known Allergies Allergy Verified 10/17/17 22:01 Review of Systems ROS Statement: Those systems with pertinent positive or pertinent negative responses have been documented in the HPI. ROS Other: All systems not noted in ROS Statement are negative. Constitutional: Denies: fever Eyes: Denies: eye pain ENT: Denies: ear pain Respiratory: Denies: cough Cardiovascular: Denies: chest pain Endocrine: Denies: fatigue Gastrointestinal: Denies: abdominal pain Genitourinary: Denies: dysuria Musculoskeletal: Reports: as per HPI, back pain Skin: Reports: as per HPI, rash Neurological: Reports: headache. Denies: weakness, confusion Past Medical History Past Medical History: Chest Pain / Angina, COPD, GERD/Reflux, Hypertension, Myocardial Infarction ([place]), Osteoarthritis (OA) Additional Past Medical History / Comment(s): HX OF HEPATITIS A, CHRONIC PAIN, GOUT, STATES KIDNEYS SHUT DOWN X2 WHEN SICK. Last Myocardial Infarction Date:: ?1999 History of Any Multi-Drug Resistant Organisms: MRSA Date of last positivie culture/infection: 12/2015 MDRO Source:: THERESA LEG Past Surgical History: Heart Catheterization With Stent, Hernia Repair, Orthopedic Surgery Additional Past Surgical History / Comment(s): SHOULDER SX, HERNIA ( A CHILD) , CATARACTS , PAIN CLINIC PROCEDURES. Past Anesthesia/Blood Transfusion Reactions: No Reported Reaction Date of Last Stent Placement:: 1999? Past Psychological History: No Psychological Hx Reported Smoking Status: Former smoker Past Alcohol Use History: Occasional Past Drug Use History: None Reported - Past Family History Mother Family Medical History: Cancer, Myocardial Infarction ([place]) Father Family Medical History: Myocardial Infarction ([place]) Sister(s) Family Medical History: Cancer Additional Family Medical History / Comment(s): SISTERS X2 General Exam Limitations: altered mental status General appearance: alert, other (Agitated) Head exam: Present: atraumatic, normocephalic Eye exam: Present: normal appearance, PERRL, EOMI ENT exam: Present: normal oropharynx Neck exam: Present: normal inspection. Absent: tenderness Respiratory exam: Present: normal lung sounds bilaterally Cardiovascular Exam: Present: regular rate, normal rhythm GI/Abdominal exam: Present: soft, other (Ostomy bag is present). Absent: distended, tenderness Extremities exam: Present: normal inspection Neurological exam: Present: alert, CN II-XII intact. Absent: motor sensory deficit Expanded Patient oriented to: Present: person, place. Absent: time (Patient becomes agitated upon questioning and will not answer.) Cranial nerves: EOM's Intact: Normal Motor strength exam: RUE: 5, LUE: 5, RLE: 5, LLE: 5 Psychiatric exam: Present: agitated Skin exam: Present: rash (Patient has diffuse lesions throughout his body that appear as moderate skin ulcerations up to 1 cm.) Course Vital Signs 10/17/17 10/17/17 21:38 23:04 Temperature 97.1 F L Pulse Rate 63 60 Respiratory 18 16 Rate Blood Pressure 150/66 133/60 O2 Sat by Pulse 98 96 Oximetry EKG Findings - EKG Comments: EKG Findings:: Sinus bradycardia 58. WI 166. QRS 96. QT 448. QTC 439. Normal axis. Normal QRS. No acute ST change. Medical Decision Making - Medical Decision Making Patient reevaluated and resting comfortably in bed. Patient is arousable. Patient is still oriented 2. Patient states his primary care physician is Dr. Prince. Etiology of altered mental status is felt to be related to drug use or withdrawal with some associated psychosis. There is no evidence of head injury on exam. Negative head CT. Reported head injury is 20 hours ago at this time. Case was discussed in detail with Dr. Prince who is comfortable with medical admission. Consult for neurology and psychiatry. - Lab Data Result diagrams: 10/17/17 21:46 10/17/17 21:46 Lab Results 10/17/17 10/17/17 10/17/17 Range/Units 21:46 21:46 21:46 WBC 6.2 (3.8-10.6) k/uL RBC 4.48 (4.30-5.90) m/uL Hgb 13.4 (13.0-17.5) gm/dL Hct 40.3 (39.0-53.0) % MCV 89.9 (80.0-100.0) fL MCH 29.9 (25.0-35.0) pg MCHC 33.2 (31.0-37.0) g/dL RDW 14.5 (11.5-15.5) % Plt Count 219 (150-450) k/uL Neutrophils % 56 % Lymphocytes % 35 % Monocytes % 5 % Eosinophils % 2 % Basophils % 0 % Neutrophils # 3.5 (1.3-7.7) k/uL Lymphocytes # 2.2 (1.0-4.8) k/uL Monocytes # 0.3 (0-1.0) k/uL Eosinophils # 0.1 (0-0.7) k/uL Basophils # 0.0 (0-0.2) k/uL PT (9.0-12.0) sec INR (<1.2) APTT (22.0-30.0) sec Sodium 139 (137-145) mmol/L Potassium 3.8 (3.5-5.1) mmol/L Chloride 102 (98-107) mmol/L Carbon Dioxide 26 (22-30) mmol/L Anion Gap 11 mmol/L BUN 9 (9-20) mg/dL Creatinine 0.60 L (0.66-1.25) mg/dL Est GFR (CKD-EPI)AfAm >90 (>60 ml/min/1.73 sqM) Est GFR (CKD-EPI)NonAf >90 (>60 ml/min/1.73 sqM) Glucose 102 H (74-99) mg/dL Calcium 9.0 (8.4-10.2) mg/dL Total Bilirubin 0.7 (0.2-1.3) mg/dL AST 22 (17-59) U/L ALT 16 L (21-72) U/L Alkaline Phosphatase 104 (38-126) U/L Total Creatine Kinase 73 (55-170) U/L CK-MB (CK-2) 1.2 (0.0-2.4) ng/mL CK-MB (CK-2) Rel Index 1.6 Troponin I <0.012 (0.000-0.034) ng/mL Total Protein 6.4 (6.3-8.2) g/dL Albumin 3.6 (3.5-5.0) g/dL Urine Color Urine Appearance (Clear) Urine pH (5.0-8.0) Ur Specific [place] (1.001-1.035) Urine Protein (Negative) Urine Glucose (UA) (Negative) Urine Ketones (Negative) Urine Blood (Negative) Urine Nitrite (Negative) Urine Bilirubin (Negative) Urine Urobilinogen (<2.0) mg/dL Ur Leukocyte Esterase (Negative) Salicylates <1.0 mg/dL Urine Opiates Screen (NotDetected) Ur Oxycodone Screen (NotDetected) Urine Methadone Screen (NotDetected) Ur Propoxyphene Screen (NotDetected) Acetaminophen <10.0 ug/mL Ur Barbiturates Screen (NotDetected) U Tricyclic Antidepress (NotDetected) Ur Phencyclidine Scrn (NotDetected) Ur Amphetamines Screen (NotDetected) U Methamphetamines Scrn (NotDetected) U Benzodiazepines Scrn (NotDetected) Urine Cocaine Screen (NotDetected) U Marijuana (THC) Screen (NotDetected) Serum Alcohol <10 mg/dL Blood Type Blood Type Recheck Antibody Screen Spec Expiration Date 10/17/17 10/17/17 10/17/17 Range/Units 21:46 21:46 23:01 WBC (3.8-10.6) k/uL RBC (4.30-5.90) m/uL Hgb (13.0-17.5) gm/dL Hct (39.0-53.0) % MCV (80.0-100.0) fL MCH (25.0-35.0) pg MCHC (31.0-37.0) g/dL RDW (11.5-15.5) % Plt Count (150-450) k/uL Neutrophils % % Lymphocytes % % Monocytes % % Eosinophils % % Basophils % % Neutrophils # (1.3-7.7) k/uL Lymphocytes # (1.0-4.8) k/uL Monocytes # (0-1.0) k/uL Eosinophils # (0-0.7) k/uL Basophils # (0-0.2) k/uL PT 9.8 (9.0-12.0) sec INR 1.0 (<1.2) APTT 26.4 (22.0-30.0) sec Sodium (137-145) mmol/L Potassium (3.5-5.1) mmol/L Chloride (98-107) mmol/L Carbon Dioxide (22-30) mmol/L Anion Gap mmol/L BUN (9-20) mg/dL Creatinine (0.66-1.25) mg/dL Est GFR (CKD-EPI)AfAm (>60 ml/min/1.73 sqM) Est GFR (CKD-EPI)NonAf (>60 ml/min/1.73 sqM) Glucose (74-99) mg/dL Calcium (8.4-10.2) mg/dL Total Bilirubin (0.2-1.3) mg/dL AST (17-59) U/L ALT (21-72) U/L Alkaline Phosphatase (38-126) U/L Total Creatine Kinase (55-170) U/L CK-MB (CK-2) (0.0-2.4) ng/mL CK-MB (CK-2) Rel Index Troponin I (0.000-0.034) ng/mL Total Protein (6.3-8.2) g/dL Albumin (3.5-5.0) g/dL Urine Color Yellow Urine Appearance Clear (Clear) Urine pH 6.5 (5.0-8.0) Ur Specific [place] 1.006 (1.001-1.035) Urine Protein Negative (Negative) Urine Glucose (UA) Negative (Negative) Urine Ketones Negative (Negative) Urine Blood Negative (Negative) Urine Nitrite Negative (Negative) Urine Bilirubin Negative (Negative) Urine Urobilinogen <2.0 (<2.0) mg/dL Ur Leukocyte Esterase Negative (Negative) Salicylates mg/dL Urine Opiates Screen Not Detected (NotDetected) Ur Oxycodone Screen Detected H (NotDetected) Urine Methadone Screen Not Detected (NotDetected) Ur Propoxyphene Screen Not Detected (NotDetected) Acetaminophen ug/mL Ur Barbiturates Screen Not Detected (NotDetected) U Tricyclic Antidepress Not Detected (NotDetected) Ur Phencyclidine Scrn Not Detected (NotDetected) Ur Amphetamines Screen Detected H (NotDetected) U Methamphetamines Scrn Detected H (NotDetected) U Benzodiazepines Scrn Detected H (NotDetected) Urine Cocaine Screen Not Detected (NotDetected) U Marijuana (THC) Screen Not Detected (NotDetected) Serum Alcohol mg/dL Blood Type O Positive Blood Type Recheck No Antibody Screen NEGATIVE Spec Expiration Date 10/20/2017 - 2346 - Radiology Data Radiology results: image reviewed (Right shoulder x-ray shows no acute process. X-ray of the cervical spine and brain shows no acute process.) Interpreted by me: Chest x-ray reveals no acute abnormality. Disposition Clinical Impression: Altered mental status, Agitation Disposition: ADMITTED IP TO THIS HOSP Referrals: None,Stated [Primary Care Provider] - 1-2 days Decision Time: 23:44
[2017-10-17 22:04] LABS: Basophils % (A) 0 %; Eosinophils # (A) 0.1 k/uL (0-0.7); Eosinophils % (A) 2 %; HCT 40.3 % (39.0-53.0); HGB 13.4 gm/dL (13.0-17.5); Lymphocytes # (A) 2.2 k/uL (1.0-4.8); Lymphocytes % (A) 35 %; MCH 29.9 pg (25.0-35.0); MCHC 33.2 g/dL (31.0-37.0); MCV 89.9 fL (80.0-100.0); Mean Platelet Volume 8.4; Monocytes # (A) 0.3 k/uL (0-1.0); Monocytes % (A) 5 %; Neutrophils # (A) 3.5 k/uL (1.3-7.7); Neutrophils % (A) 56 %; Platelet Count 219 k/uL (150-450); RBC 4.48 m/uL (4.30-5.90); RDW 14.5 % (11.5-15.5); WBC 6.2 k/uL (3.8-10.6)
[2017-10-17 22:15] LABS: ALT 16 U/L (21-72); AST 22 U/L (17-59); Acetaminophen <10.0 ug/mL; Albumin 3.6 g/dL (3.5-5.0); Alcohol <10 mg/dL; Alkaline Phosphatase 104 U/L (38-126); Anion Gap 11 mmol/L; Blood Urea Nitrogen 9 mg/dL (9-20); Carbon Dioxide 26 mmol/L (22-30); Chloride 102 mmol/L (98-107); Glucose 102 mg/dL (74-99); Potassium 3.8 mmol/L (3.5-5.1); Salicylate <1.0 mg/dL; Sodium 139 mmol/L (137-145); Total Bilirubin 0.7 mg/dL (0.2-1.3); Total Protein 6.4 g/dL (6.3-8.2)
[2017-10-17 22:22] LABS: Partial Thromboplastin Time 26.4 sec (22.0-30.0); Prothrombin Time 9.8 sec (9.0-12.0)
[2017-10-17 22:24] LABS: Creatine Kinase 73 U/L (55-170)
--- NOTE | 2017-10-17 22:33 | CT ---
EXAMINATION TYPE: CT brain rony wo con DATE OF EXAM: 10/17/2017 COMPARISON: CT brain 02/19/2017 HISTORY: Fall, altered mental status neck pain CT DLP: 1167.5 mGycm Automated exposure control for dose reduction was used. TECHNIQUE: CT scan of the head and cervical spine are performed without contrast. FINDINGS: Ventricles and sulci are within normal limits. There is no mass effect nor midline shift. There is no sign of intracranial hemorrhage. The calvarium is intact. The cervical vertebra have normal spacing and alignment. Posterior elements are intact. Facet joints are fairly well maintained. The skull base is intact. There is minor spurring at C4-5 C5-6. IMPRESSION: Negative CT scan of the brain. No change compared to old exam. Negative CT scan of the cervical spine.
[2017-10-17 22:38] LABS: Creatine Kinase MB 1.2 ng/mL (0.0-2.4); Troponin I <0.012 ng/mL (0.000-0.034)
--- NOTE | 2017-10-17 22:39 | XR ---
EXAMINATION TYPE: XR shoulder complete RT DATE OF EXAM: 10/17/2017 COMPARISON: 10/04/2015 HISTORY: Shoulder pain after falling TECHNIQUE: 3 views FINDINGS: I see no fracture nor dislocation. There is postsurgical change at the AC joint with osteot nemesoi of the lateral end of the clavicle. There is minor spurring at the glenohumeral joint. IMPRESSION: Previous surgery. No acute abnormality of the right shoulder. No fracture.
[2017-10-17 23:14] LABS: Appearance,Urine Clear (Clear); Bilirubin,Urine Negative (Negative); Blood,Urine Negative (Negative); Color,Urine Yellow; Glucose,Urine (UA) Negative (Negative); Ketones,Urine Negative (Negative); Leukocyte Esterase,Urine Negative (Negative); Nitrite,Urine Negative (Negative); PH, Urine 6.5 (5.0-8.0); Protein,Urine Negative (Negative); Specific Gravity,Urine 1.006 (1.001-1.035); Urobilinogen,Urine <2.0 mg/dL (<2.0)
[2017-10-17 23:27] LABS: Amphetamine Screen,Urine Detected (NotDetected); Barbiturate Screen,Urine Not Detected (NotDetected); Benzodiazepines Screen,Urine Detected (NotDetected); Cocaine Screen,Urine Not Detected (NotDetected); Methadone Screen, Urine Not Detected (NotDetected); Opiate Screen,Urine Not Detected (NotDetected); Oxycodone Screen, Urine Detected (NotDetected); Phencyclidine Screen,Urine Not Detected (NotDetected); Tricyclic Antidepressant,Urine Not Detected (NotDetected); Urn Cannabinoid Scrn Not Detected (NotDetected)
[2017-10-17] MEDS ORDERED: NALOXONE 0.4 MG/ML 1 ML VIAL IV PRN (23:44)
[2017-10-17] MEDS ORDERED: LORazepam 2 MG/ML INJ IV PRN (23:44)
--- NOTE | 2017-10-17 23:58 | XR ---
EXAMINATION TYPE: XR chest 1V portable DATE OF EXAM: 10/17/2017 COMPARISON: 04/30/2017 HISTORY: Fall chest pain TECHNIQUE: Single frontal view of the chest is obtained. FINDINGS: Portable single view of the chest shows no heart failure nor confluent pneumonic infiltrat e. Costophrenic angles are clear. Bony thorax appears intact. IMPRESSION: No active cardiopulmonary disease. No adverse change compared to old exam.
[2017-10-18 00:23] VITALS: BMI 28.5
[2017-10-18] MEDS ORDERED: ATROPINE SULFATE 0.1 MG/ML 10ML SYRINGE ONE (03:09)
[2017-10-18] MEDS: SODIUM CHLORIDE 0.9% 1,000 ML IV SCH ×4 (03:10→23:17)
[2017-10-18] MEDS ORDERED: ALBUTEROL NEBULIZED 2.5 MG/3 ML INHALATION PRN (07:46)
[2017-10-18] MEDS ORDERED: CLOBETASOL PROP 0.05% CR 15GM TOPICAL PRN (07:46)
[2017-10-18] MEDS ORDERED: NON-FORMULARY DRUG (Clindamycin Gel 1 APPLIC) TOPICAL PRN ×2 (07:46→07:55)
--- NOTE | 2017-10-18 07:56 | P.HPIM ---
History of Present Illness H&P Date: 10/18/17 Chief Complaint: Altered mental status This is a 57-year-old white male essentially with history of severe diverticular disease that had some surgery with colostomy several months ago. He's had difficulty with reversal secondary to skin rash. I suspect more gallons disease, he's had multiple dermatologic referrals, but is unsatisfied. The patient supposedly states he's been taking Sudafed. He had significant altered mental status yesterday and is becoming quite ornery. The patient states significant issue with altered mental status but has no recollection of what truly happened yesterday. No ethanol was noted. However, he is positive for amphetamine, benzodiazepine and opiate. I do suspect a trial element. Review of Systems Constitutional: Denies chills, Denies fever Eyes: denies blurred vision, denies pain Ears, nose, mouth and throat: Denies headache, Denies sore throat Cardiovascular: Denies chest pain, Denies shortness of breath Respiratory: Denies cough Gastrointestinal: Denies abdominal pain, Denies diarrhea, Denies nausea, Denies vomiting Past Medical History Past Medical History: Chest Pain / Angina, COPD, GERD/Reflux, Hypertension, Myocardial Infarction ([place]), Osteoarthritis ([place]) Additional Past Medical History / Comment(s): HX OF HEPATITIS A, CHRONIC PAIN, GOUT, STATES KIDNEYS SHUT DOWN X2 WHEN SICK. Last Myocardial Infarction Date:: ?1999 History of Any Multi-Drug Resistant Organisms: MRSA Date of last positivie culture/infection: 12/2015 MDRO Source:: THERESA LEG Past Surgical History: Heart Catheterization With Stent, Hernia Repair, Orthopedic Surgery Additional Past Surgical History / Comment(s): SHOULDER SX, HERNIA ( A CHILD) , CATARACTS , PAIN CLINIC PROCEDURES. Past Anesthesia/Blood Transfusion Reactions: No Reported Reaction Date of Last Stent Placement:: 1999? Past Psychological History: No Psychological Hx Reported Smoking Status: Former smoker Past Alcohol Use History: Occasional Additional Past Alcohol Use History / Comment(s): SMOKES 1/2 PPD, SMOKING SINCE AGE 18 Past Drug Use History: None Reported - Past Family History Mother Family Medical History: Cancer, Myocardial Infarction ([place]) Father Family Medical History: Myocardial Infarction ([place]) Sister(s) Family Medical History: Cancer Additional Family Medical History / Comment(s): SISTERS X2 Medications and Allergies Home Medications Medication Instructions Recorded Confirmed Type Aspirin EC [Ecotrin Low Dose] 81 mg PO DAILY 11/21/15 10/17/17 History Nitroglycerin Sl Tabs [Nitrostat] 0.4 mg SUBLINGUAL Q5M PRN 11/21/15 10/17/17 History hydrALAZINE HCL [Apresoline] 50 mg PO BID 11/21/15 10/17/17 History clonazePAM [KlonoPIN] 1 mg PO BID 02/06/16 10/17/17 History oxyCODONE HCL 40 mg PO Q6H PRN 02/06/16 10/17/17 History Albuterol Inhaler [Ventolin Hfa 1 - 2 puff INHALATION RT-Q6H PRN 04/21/17 History Inhaler] Atenolol [Tenormin] 100 mg PO DAILY 04/21/17 10/17/17 History Ibuprofen [Motrin] 800 mg PO BID 04/21/17 10/17/17 History Amoxicillin 500 mg PO TID 10/17/17 10/17/17 History Cetirizine HCl [Zyrtec] 10 mg PO DAILY PRN 10/17/17 10/17/17 History Clindamycin Gel [Clindamycin 1 applic TOPICAL BID PRN 10/17/17 10/17/17 History Phosphate] Diclofenac Sodium Gel [Voltaren 2 gm TOPICAL QID PRN 10/17/17 10/17/17 History Gel] HYDROcodone/APAP 10-325MG [[place] 1 tab PO Q6H PRN 10/17/17 10/17/17 History 10-325] Halobetasol Propionate [Ultravate] 1 applic TOPICAL BID PRN 10/17/17 10/17/17 History hydrOXYzine HCL [Atarax] 25 mg PO DAILY 10/17/17 10/17/17 History Allergies Allergy/AdvReac Type Severity Reaction Status Date / Time No Known Allergies Allergy Verified 10/17/17 22:01 Physical Exam Vitals: Vital Signs Temp Pulse Pulse Resp BP BP Pulse Ox 10/18/17 03:36 97.9 F 42 L 18 100 10/18/17 03:21 44 L 157/63 100 10/18/17 03:17 46 L 20 109/43 96 10/18/17 03:09 34 L 20 146/68 99 10/18/17 00:38 78 18 10/17/17 23:04 60 16 133/60 96 10/17/17 21:38 97.1 F L 63 18 150/66 98 Intake and Output 10/17/17 10/18/17 10/18/17 22:59 06:59 14:59 Intake Total 120 Balance 120 Intake: Oral 120 Other: Voiding Method Urinal # Voids 1 Weight 82.69 kg 69.5 kg - Constitutional General appearance: obese - EENT Eyes: no abnormal pupil - Neck Neck: lymphadenopathy - Respiratory Respiratory: bilateral: CTA - Cardiovascular Rhythm: regular Heart sounds: normal: S1, S2 Abnormal Heart Sounds: no S3 Gallop - Gastrointestinal General gastrointestinal: soft, no tenderness - Integumentary Integumentary: rash - Neurologic Neurologic: CNII-XII intact - Musculoskeletal Musculoskeletal: gait normal Results CBC & Chem 7: 10/17/17 21:46 10/17/17 21:46 Labs: Abnormal Lab Results - Last 24 Hours (Table) 10/17/17 10/17/17 Range/Units 21:46 23:01 Creatinine 0.60 L (0.66-1.25) mg/dL Glucose 102 H (74-99) mg/dL ALT 16 L (21-72) U/L Ur Oxycodone Screen Detected H (NotDetected) Ur Amphetamines Screen Detected H (NotDetected) U Methamphetamines Scrn Detected H (NotDetected) U Benzodiazepines Scrn Detected H (NotDetected) Assessment and Plan (1) Agitation Current Visit: Yes Status: Acute Code(s): R45.1 - RESTLESSNESS AND AGITATION SNOMED Code(s): 869876330 (2) Altered mental status Current Visit: Yes Status: Acute Code(s): R41.82 - ALTERED MENTAL STATUS, UNSPECIFIED SNOMED Code(s): 544548206 (3) Diverticulitis of colon with perforation Current Visit: No Status: Acute Code(s): K57.20 - DVTRCLI OF LG INT W PERFORATION AND ABSCESS W/O BLEEDING SNOMED Code(s): 45271044 (4) History of myocardial infarction Current Visit: No Status: Acute Code(s): I25.2 - OLD MYOCARDIAL INFARCTION SNOMED Code(s): 076583690 Plan: Withdrawal element. Definitely polypharmacy. We will decrease doses of benzodiazepine and pain medication today. Psychiatry and neurology consults are pending. However, the patient seems to be more lucid at this point. Continue hydration and by mouth intake. Anticipate discharge in 24 hours if stabilizing without withdrawal elements. Time with Patient: Less than 30
[2017-10-18] MEDS: ASPIRIN 81 MG PO SCH (08:35)
[2017-10-18] MEDS: hydrOXYzine HCL 25 MG TAB PO SCH (08:35)
[2017-10-18] MEDS: IBUPROFEN 800 MG TAB PO SCH ×2 (08:36→20:23)
[2017-10-18] MEDS: clonazePAM 0.5 MG TAB PO SCH ×2 (08:37→20:23)
--- NOTE | 2017-10-18 13:58 | P.CN ---
Psychiatric Consult - . Consult date: 10/18/17 Consult:: 10/18/17 13:36 Identification: Patient is a 57-year-old male who was brought to the emergency room by EMS after displaying agitated aggressive behavior at home. Reason for Consult: Altered mental status, agitation History of Present Illness: Patient's chart was reviewed, no family members were present during the interview the patient was seen alone in his room. Patient states that he was at home yesterday, he states that he tripped over a stool that he moved in front of his recliner and forgot that he had placed at their and hit his head and states that he lost consciousness for an unknown period of time. He states that he was arguing with his partner, and then when his daughter's friend came to pick her up for work she recommended that they call the police and commit the patient. Patient states that he was upset and states that once the police came he became increasingly agitated and angry. He states that he got into an altercation with the police because he refused to go with them, he states when they put him on the floor and one placed his knee on his back, this is when he threatened them. Patient states that he did have a knife in his hand as he was cutting the filters on his cigarettes in half. Patient states that he may have been a little confused yesterday after he fell, he's not sure how he was feeling prior to that but he did report to me that he had varnished the floors in his home the night prior to his admission in the morning of his admission with an oil-based product. Patient states he did not wear respirator reportedly ventilate the home properly. Patient states he did feel a little woozy after that. Patient admits that he did threaten that police especially the officer who had his knee on his back, does not recall threatening any family members. Patient states that he got a little angry and probably said things that he should not have. He states he is not currently having any suicidal thoughts, has no homicidal thoughts towards his family or the police. He has angry over his handling by the police but denied wanting to hurt them. Patient states that he has been taking OxyContin and Klonopin since the year 1999 for back pain. Patient states that he's been taking his Klonopin is 2 mg at bedtime to assist with his sleep. He reports to me that he's been using 8 OxyContin a day with little relief in his back pain. Patient states that he sleeps in the recliner and has done so for the last 20 years. He sleeps about 3 -4 hours a night. Patient states that he was prior to admission also using Sudafed, as well as Atarax for itching. Patient denies any drug use of methamphetamines amphetamines. Patient states that he has been having difficulty since his colostomy and that since that time he has had these lesions on his forearms and legs and abdomen and denied picking at them with a knife. Patient does not endorse a history of any manic symptoms, psychotic symptoms or depressive symptoms, patient states that he was placed on Klonopin secondary to his pain. Patient does not endorse a history of suicidal ideation and has no history of suicide attempts. Patient denies ever having made homicidal threats in the past. Psychiatric History: Patient denies any prior inpatient treatment or outpatient psychiatric treatment. Patient reports that he has been placed on Klonopin in 1999 secondary to his back pain. He reports no treatment with psychotropic medication. Past Medical/Surgical History: Patient has a history of COPD, GERD, hypertension , states that he is status post 2 myocardial infarctions and has had stents placed, he states that he had 2 strokes in the past one 10 years ago one 20 years ago and reports no sequela. Patient states he is also status post hernia repair. He states that he had a colostomy for ruptured diverticulum. He states that the colostomy was to of been reversed in July but due to his skin lesions it was not done at that time. Family History: Patient denies any family history of psychiatric disorders or alcohol or drug disorders. No completed suicides in the family. Social History: Patient was born and raised in [place] both of his parents are . His parents when he was 8 years of age. He continued to live with his mother and had 7 siblings and 5 step sibs from his father's remarriage. Patient states that 2 of his siblings are . Patient completed high school and then entered the where he was released after one year on an honorable discharge after getting into an argument with a superior officer. 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 Patient states that he stopped working in the year 1999 due to his back pain. Patient has never been , stating that he doesn't believe in it and has been living with his current partner for the last 20 years and has one daughter who is 20 years of age. Patient states he plans to move to [place] as the weather is better there in the winter and his daughter is planning to someone in [place] and he stated that he would do anything for his daughter. Patient is currently on Social Security disability. Patient denies any abuse history. Patient has been living with his partner and his daughter. Patient states that he takes care of his own ADLs and pays his own bills. Substance Use History: Patient states that he used alcohol in the past a fifth a day but quit in 1999 and most recently drinks 1-2 times a week 1-2 beers. He states in the he was using cocaine but has not used since that time. He denies any IV drug use or any other drug use history. Patient does use tobacco products. Legal history: Patient denies Mental status: Appearance/Attitude: Patient is sitting in a hospital bed in no acute distress, makes good eye contact and was cooperative. Behavior: Patient does not exhibit any psychomotor agitation or retardation. Speech/Language: Patient's speech is spontaneous of normal volume and rhythm and he is coherent. Thought Process: Patient is goal-directed there is no evidence of circumstantial or tangential thought and no loose association or flight of ideas Thought Content: Patient denies any auditory or visual hallucinations and no delusions or paranoid ideation were elicited. Patient states that he got angry yesterday and said things that he probably should not have but was upset that the police came into the house and forced him out of the home. he states that he was not cooperating with them and was upset that one of them forced him to the floor and put his knee and his back. Patient states that he had fallen earlier in the day and hit his head and was unconscious for an unknown period of time. He had also recently been using an oil-based varnish at home without proper ventilation or equipment. Patient reports that at home he sleeps about 4 hours a night in a recliner due to his pain and that his appetite at home was good. Suicidal/Homicidal Ideation: Patient denies any current suicidal or homicidal ideation, states he is angry at the special police officer but has no intention to harm him. Sensorium/Cognition: Patient is alert and oriented to person, place, month and year, patient knows the president is and his recent and remote memory were grossly intact. Mood/Affect: Patient's mood is pleasant and his affect is appropriate Insight/Judgment: Patient's insight and judgment are fair Assessment: Patient presented to the emergency room agitated, confused and had made threats against the police officers and apparently against his family. Patient seen today states that he was upset with his daughter's friend who stated they should call the police and have him committed. He states he was angry that the police came into the house and tried to force him out of it as well as forced him onto his newly varnished floor and put his knee on his back. Patient states that he did get angry and probably said things that he should not have said. Patient has been using up to 8 OxyContin a day, Klonopin 2 mg at bedtime and states he was also using Sudafed for an unknown period of time as well as Atarax for the itching and also had a prescription for zyrtec and was also using an oil-based varnish on his floors without proper ventilation or equipment. Patient has no prior psychiatric history, no history of drug abuse and has not been drinking heavily for a number of years. Patient has no prior history of suicide attempts and has no legal history. Patient denies any use of amphetamines or methamphetamines and this may be a false positive on his UDS secondary to his use of Sudafed. Diagnosis: Delirium, multifactorial Plan: Patient is currently alert and oriented 3, his delirium has resolved which may have been multifactorial due to his use of opiate pain medication, benzodiazepines combined with Atarax and Sudafed and zyrtec, as well as using an oil-based varnish in a home that was not well ventilated. Patient also fell yesterday and hit his head and states that he lost consciousness for an unknown period of time. At this time there is no evidence of confusion, there is no evidence of psychotic symptoms and the patient states that he is not suicidal and is not making any threats toward the police and I will discontinue his one- to-one sitter as well as other suicide precautions. There is no indication to begin any psychotropic medication at this time. Patient does not require inpatient psychiatric treatment. I would recommend continuing to try to decrease the patient's use of benzodiazepines combined with opiate pain medication and advise patient to not overuse Atarax, Sudafed, zyrtec. I will sign off the case if there are any further questions or concerns please don't hesitate to contact psychiatry. 10/18/17 13:54 10/18/17 13:59 10/18/17 14:00
[2017-10-18] MEDS: DICLOFENAC SODIUM GEL 100 GM TUBE TOPICAL PRN (16:53)
--- NOTE | 2017-10-18 18:25 | P.CONS ---
History of Present Illness - Reason for Consult Consult date: 10/18/17 Altered mental status - Chief Complaint Altered mental status - History of Present Illness Is a 57-year-old male being evaluated by the neurology service for altered mental status and agitation. His a history of severe diverticular disease and a colostomy several months ago which caused a subsequent rash and cutaneous infections. He was taken from his home yesterday after his family thought he was acting agitated and aggressive. He says he was born she floor and his house became a little disoriented and fell and hit his head CT in the emergency room of the head and neck were negative. His urine drug screen was positive for amphetamines benzodiazepines and opiates. She also has a significant history of alcohol use. At the time of my exam he is restless and walking around his room. He is not particularly agitated. Psychiatric consultation has been accomplished and they seem to feel he had multifactorial delirium due to his medication use and possibly inhaling fumes. He has no evidence of psychotic symptoms he is not suicidal or making any threats. Review of Systems All systems: negative Constitutional: Reports as per HPI Past Medical History Past Medical History: Chest Pain / Angina, COPD, GERD/Reflux, Hypertension, Myocardial Infarction (NE), Osteoarthritis (OA) Additional Past Medical History / Comment(s): HX OF HEPATITIS A, CHRONIC PAIN, GOUT, STATES KIDNEYS SHUT DOWN X2 WHEN SICK. Last Myocardial Infarction Date:: ?1999 History of Any Multi-Drug Resistant Organisms: MRSA Year Discovered:: 12/2015 MDRO Source:: THERESA LEG Past Surgical History: Heart Catheterization With Stent, Hernia Repair, Orthopedic Surgery Additional Past Surgical History / Comment(s): SHOULDER SX, HERNIA ( A CHILD) , CATARACTS , PAIN CLINIC PROCEDURES. Past Anesthesia/Blood Transfusion Reactions: No Reported Reaction Date of Last Stent Placement:: 1999? Past Psychological History: No Psychological Hx Reported Smoking Status: Former smoker Past Alcohol Use History: Occasional Additional Past Alcohol Use History / Comment(s): SMOKES 1/2 PPD, SMOKING SINCE AGE 18 Past Drug Use History: None Reported - Past Family History Mother Family Medical History: Cancer, Myocardial Infarction (NE) Father Family Medical History: Myocardial Infarction (NE) Sister(s) Family Medical History: Cancer Additional Family Medical History / Comment(s): SISTERS X2 Medications and Allergies Home Medications Medication Instructions Recorded Confirmed Type Aspirin EC [Ecotrin Low Dose] 81 mg PO DAILY 11/21/15 10/17/17 History Nitroglycerin Sl Tabs [Nitrostat] 0.4 mg SUBLINGUAL Q5M PRN 11/21/15 10/17/17 History hydrALAZINE HCL [Apresoline] 50 mg PO BID 11/21/15 10/17/17 History clonazePAM [KlonoPIN] 1 mg PO BID 02/06/16 10/17/17 History oxyCODONE HCL 40 mg PO Q6H PRN 02/06/16 10/17/17 History Albuterol Inhaler [Ventolin Hfa 1 - 2 puff INHALATION RT-Q6H PRN 04/21/17 History Inhaler] Atenolol [Tenormin] 100 mg PO DAILY 04/21/17 10/17/17 History Ibuprofen [Motrin] 800 mg PO BID 04/21/17 10/17/17 History Amoxicillin 500 mg PO TID 10/17/17 10/17/17 History Cetirizine HCl [Zyrtec] 10 mg PO DAILY PRN 10/17/17 10/17/17 History Clindamycin Gel [Clindamycin 1 applic TOPICAL BID PRN 10/17/17 10/17/17 History Phosphate] Diclofenac Sodium Gel [Voltaren 2 gm TOPICAL QID PRN 10/17/17 10/17/17 History Gel] HYDROcodone/APAP 10-325MG [[place] 1 tab PO Q6H PRN 10/17/17 10/17/17 History 10-325] Halobetasol Propionate [Ultravate] 1 applic TOPICAL BID PRN 10/17/17 10/17/17 History hydrOXYzine HCL [Atarax] 25 mg PO DAILY 10/17/17 10/17/17 History Allergies Allergy/AdvReac Type Severity Reaction Status Date / Time No Known Allergies Allergy Verified 10/17/17 22:01 Physical Exam Vitals: Vital Signs Temp Pulse Pulse Resp BP BP Pulse Ox 10/18/17 15:25 97.7 F 49 L 18 130/62 98 10/18/17 12:10 50 L 10/18/17 12:00 50 L 10/18/17 11:51 97.8 F 43 L 18 132/68 98 10/18/17 08:00 97.8 F 56 L 18 148/69 98 03/23/18 03:36 97.9 F 42 L 18 100 10/18/17 03:21 44 L 157/63 100 10/18/17 03:17 46 L 20 109/43 96 10/18/17 03:09 34 L 20 146/68 99 10/18/17 00:38 78 18 10/17/17 23:04 60 16 133/60 96 10/17/17 21:38 97.1 F L 63 18 150/66 98 Intake and Output 10/18/17 10/18/17 10/18/17 06:59 14:59 22:59 Intake Total 120 600 Balance 120 600 Intake: Oral 120 600 Other: Voiding Method Urinal # Voids 1 Weight 69.5 kg - Constitutional General appearance: average body habitus, cooperative, no acute distress - EENT Eyes: no abnormal pupil, EOMI, PERRLA, no ptosis ENT: hearing grossly normal - Neck Neck: normal ROM, no rigidity - Respiratory Respiratory: negative: prolonged expiration, prolonged inspiration - Cardiovascular Rhythm: regular - Gastrointestinal General gastrointestinal: no distended, no tenderness - Integumentary Excoriated pustular weeping lesions on arms and hands. - Neurologic The patient is alert awake and oriented 3. Speech and language are normal. There is no facial asymmetry. Strength is 5 out of 5 in bilateral upper and lower extremities. There is no sensory deficit. No tremors or seizures are seen. Cranial nerves II through XII are intact globally. Results CBC & Chem 7: 10/17/17 21:46 10/17/17 21:46 Labs: Abnormal Lab Results - Last 24 Hours (Table) 10/17/17 10/17/17 Range/Units 21:46 23:01 Creatinine 0.60 L (0.66-1.25) mg/dL Glucose 102 H (74-99) mg/dL ALT 16 L (21-72) U/L Ur Oxycodone Screen Detected H (NotDetected) Ur Amphetamines Screen Detected H (NotDetected) U Methamphetamines Scrn Detected H (NotDetected) U Benzodiazepines Scrn Detected H (NotDetected) Assessment and Plan (1) Skin infection Current Visit: Yes Status: Chronic Code(s): L08.9 - LOCAL INFECTION OF THE SKIN AND SUBCUTANEOUS TISSUE, UNSP SNOMED Code(s): 114179115 (2) Agitation Current Visit: Yes Status: Resolved Code(s): R45.1 - RESTLESSNESS AND AGITATION SNOMED Code(s): 537673300 (3) Altered mental status Current Visit: Yes Status: Resolved Code(s): R41.82 - ALTERED MENTAL STATUS , UNSPECIFIED SNOMED Code(s): 818928292 Plan: This gentleman altered mental status is likely multifactorial. He probably experience some acute encephalopathy from substance use and inhalant, namely forearm rash. There was some possible loss of consciousness. I will order an EEG. Given his extensive skin lesions, would recommend infectious disease consultation. This could also be done on an outpatient basis. He seems quite fixated on these lesions. Barring any unforeseen abnormalities on his EEG he be cleared from a neurological standpoint. I have performed a history and physical on the above patient. I have reviewed the above note, and agree.
[2017-10-18 20:45] VITALS: RESP 18
[2017-10-19] MEDS: DICLOFENAC SODIUM GEL 100 GM TUBE TOPICAL PRN ×2 (04:35→14:07)
[2017-10-19] MEDS: IBUPROFEN 800 MG TAB PO SCH (08:27)
[2017-10-19] MEDS: ASPIRIN 81 MG PO SCH (08:29)
[2017-10-19] MEDS: clonazePAM 0.5 MG TAB PO SCH (08:29)
[2017-10-19] MEDS: SODIUM CHLORIDE 0.9% 1,000 ML IV SCH (08:29)
[2017-10-19] MEDS: hydrOXYzine HCL 25 MG TAB PO SCH (08:29)
[2017-10-19 15:33] VITALS: BP 153/73; PULSE 54; TEMP 97.1
== END 2017-10-19 15:42 | disposition home or self-care (01) | DRG 93 ==
LOC: EC 21:33 → 6SEL 23:44
PROVIDERS: ADMIT Family Medicine; ATTEND Family Medicine
DX: G92 Toxic encephalopathy (principal); G89.29 Other chronic pain; I10 Essential (primary) hypertension; T50.905A Adverse effect of unspecified drugs, medicaments and biological substances, initial encounter; Y92.009 Unspecified place in unspecified non-institutional (private) residence as the place of occurrence of the external cause; I25.2 Old myocardial infarction; J44.9 Chronic obstructive pulmonary disease, unspecified; K21.9 Gastro-esophageal reflux disease without esophagitis; L08.9 Local infection of the skin and subcutaneous tissue, unspecified; K57.90 Diverticulosis of intestine, part unspecified, without perforation or abscess without bleeding; M10.9 Gout, unspecified; M19.90 Unspecified osteoarthritis, unspecified site; R21 Rash and other nonspecific skin eruption; R45.1 Restlessness and agitation; M54.9 Dorsalgia, unspecified; Z93.3 Colostomy status; Z87.891 Personal history of nicotine dependence; Z79.82 Long term (current) use of aspirin; Z79.899 Other long term (current) drug therapy; Z86.14 Personal history of Methicillin resistant Staphylococcus aureus infection; Z95.5 Presence of coronary angioplasty implant and graft; Z98.42 Cataract extraction status, left eye; Z98.41 Cataract extraction status, right eye; Z82.49 Family history of ischemic heart disease and other diseases of the circulatory system; M25.511 Pain in right shoulder; M54.2 Cervicalgia; R51 Headache; W19.XXXA Unspecified fall, initial encounter; Y93.9 Activity, unspecified
CPT/HCPCS: 36415; 70450; 71045; 72125; 80053; 80306; 80320; 81003; 82550; 82553; 83520; 84484; 85025; 85610; 85730; 86850; 86900; 86901; 93005; 94640; 96372; 99285

== ENCOUNTER → 2017-10-31 | Outpatient (CLI) | payer MEDICARE, OTHER ==
--- NOTE | 2017-10-31 14:22 | XR ---
EXAMINATION TYPE: XR shoulder complete LT DATE OF EXAM: 10/31/2017 COMPARISON: NONE HISTORY: Pain TECHNIQUE: Three views are submitted. FINDINGS: The osseous structures are intact. There is no acute fracture or dislocation. The AC joint arthropa thy noted.. IMPRESSION: 1. AC joint arthropathy consider MRI follow-up is concern for rotator cuff injury.
== END | disposition home or self-care (01) ==
LOC: RADXRMAIN 13:46
PROVIDERS: ATTEND Family Medicine
DX: M12.812 Other specific arthropathies, not elsewhere classified, left shoulder (principal)

== ENCOUNTER 2017-11-09 14:05 | Inpatient (IN) | payer MEDICARE, OTHER ==
[2017-11-09] MEDS ORDERED: MORPHINE SULFATE 4MG/4ML SYRG IVP STA ×2 (15:02→16:16)
[2017-11-09] MEDS ORDERED: SODIUM CHLORIDE 0.9% 1,000 ML IV STA ×2 (15:02)
[2017-11-09] MEDS ORDERED: RX INFO: IV CONTRAST WAS GIVEN 1 EACH MISC MISCELLANE PRN (15:02)
[2017-11-09] MEDS ORDERED: ONDANSETRON 4 MG/2 ML VIAL IVP STA (15:02)
--- NOTE | 2017-11-09 15:10 | ED ---
Nausea/Vomiting/Diarrhea HPI - General Chief complaint: Nausea/Vomiting/Diarrhea Stated complaint: Nausea Time Seen by Provider: 11/09/17 14:55 Source: patient Mode of arrival: wheelchair Limitations: no limitations - History of Present Illness Initial comments: Patient is a 57-year-old male with past medical history of CAD, abdominal pathology, hypertension, COPD, presents for nausea and vomiting and abdominal pain. Patient states that the pain started acutely at 3 AM this morning and he has had approximately 30 episodes of vomiting. He has also also had nausea but no diarrhea and denies any chest pain or shortness of breath. He states that he did have colon resection in March because his "bowels burst". He also denies any urinary symptoms such as dysuria or increased frequency of urination. - Related Data Home Medications Medication Instructions Recorded Confirmed Aspirin EC [Ecotrin Low Dose] 81 mg PO DAILY 11/21/15 10/17/17 Nitroglycerin Sl Tabs [Nitrostat] 0.4 mg SUBLINGUAL Q5M PRN 11/21/15 10/17/17 hydrALAZINE HCL [Apresoline] 50 mg PO BID 11/21/15 10/17/17 Albuterol Inhaler [Ventolin Hfa 1 - 2 puff INHALATION RT-Q6H PRN 04/21/17 Inhaler] Atenolol [Tenormin] 100 mg PO DAILY 04/21/17 10/17/17 Ibuprofen [Motrin] 800 mg PO BID 04/21/17 10/17/17 Amoxicillin 500 mg PO TID 10/17/17 10/17/17 Cetirizine HCl [Zyrtec] 10 mg PO DAILY PRN 10/17/17 10/17/17 Clindamycin Gel [Clindamycin 1 applic TOPICAL BID PRN 10/17/17 10/17/17 Phosphate] Diclofenac Sodium Gel [Voltaren 2 gm TOPICAL QID PRN 10/17/17 10/17/17 Gel] Halobetasol Propionate [Ultravate] 1 applic TOPICAL BID PRN 10/17/17 10/17/17 hydrOXYzine HCL [Atarax] 25 mg PO DAILY 10/17/17 10/17/17 Allergies Allergy/AdvReac Type Severity Reaction Status Date / Time No Known Allergies Allergy Verified 11/09/17 14:13 Review of Systems ROS Statement: Those systems with pertinent positive or pertinent negative responses have been documented in the HPI. Constitutional: Negative for chills, fatigue and fever. HENT: Negative for congestion. Respiratory: Negative for chest tightness, shortness of breath and wheezing. Cardiovascular: Negative for chest pain and palpitations. Gastrointestinal: Positive for abdominal pain, positive for nausea and vomiting ; negative for abdominal distention or diarrhea Genitourinary: Negative for dysuria. Musculoskeletal: Negative for back pain, neck pain and neck stiffness. Skin: Negative for color change. Neurological: Negative for dizziness, speech difficulty, weakness and light- headedness. Psychiatric/Behavioral: Negative for agitation and confusion. The patient is not nervous/anxious. ROS Other: All systems not noted in ROS Statement are negative. Past Medical History Past Medical History: Chest Pain / Angina, COPD, GERD/Reflux, Hypertension, Myocardial Infarction ([place]), Osteoarthritis ([place]) Additional Past Medical History / Comment(s): HX OF HEPATITIS A, CHRONIC PAIN, GOUT, STATES KIDNEYS SHUT DOWN X2 WHEN SICK. Last Myocardial Infarction Date:: ?1999 History of Any Multi-Drug Resistant Organisms: MRSA Date of last positivie culture/infection: 12/2015 MDRO Source:: THERESA LEG Past Surgical History: Bowel Resection, Heart Catheterization With Stent, Hernia Repair, Orthopedic Surgery Additional Past Surgical History / Comment(s): SHOULDER SX, HERNIA ( A CHILD) , CATARACTS , PAIN CLINIC PROCEDURES. colostomy Past Anesthesia/Blood Transfusion Reactions: No Reported Reaction Date of Last Stent Placement:: 1999? Past Psychological History: No Psychological Hx Reported Smoking Status: Former smoker Past Alcohol Use History: Occasional Past Drug Use History: None Reported - Past Family History Mother Family Medical History: Cancer, Myocardial Infarction ([place]) Father Family Medical History: Myocardial Infarction ([place]) Sister(s) Family Medical History: Cancer Additional Family Medical History / Comment(s): SISTERS X2 General Exam - General Exam Comments Initial Comments: Physical Exam Constitutional: Pt is oriented to person, place, and time. Pt appears well- developed and well-nourished. No distress. HENT: Head: Normocephalic and atraumatic. Eyes: EOM are normal. Neck: Normal range of motion. Neck supple. Cardiovascular: Normal rate, regular rhythm, S1 normal, S2 normal and normal heart sounds. Exam reveals no gallop and no friction rub. No murmur heard. Pulmonary/Chest: Effort normal and breath sounds normal. No tachypnea and no bradypnea. No respiratory distress. No wheezes or rales noted. Abdominal: Soft. Bowel sounds are normal. Pt exhibits no shifting dullness, no distension, no pulsatile liver, no fluid wave, no abdominal bruit and no ascites. There is no rigidity, no tenderness at McBurney's point and negative Almonte's sign. Ostomy bag is present in the left lower quadrant. There is diffuse tenderness with voluntary guarding and rebound tenderness. There are no peritoneal signs Musculoskeletal: Normal range of motion. Neurological: Pt is alert and oriented to person, place, and time. No cranial nerve deficit. Skin: Skin is warm and dry. Pt is not diaphoretic. No erythema. No pallor. There are diffuse excoriations mainly noted on the left arm ranging from 2 mm to 5 mm in various stages of healing Psychiatric: Pt has a normal mood and affect. Pt behavior is normal. Thought content normal. Limitations: no limitations Course Vital Signs 11/09/17 14:10 Pulse Rate 86 Respiratory 18 Rate Blood Pressure 135/74 O2 Sat by Pulse 98 Oximetry Medical Decision Making - Medical Decision Making Laboratory studies revealed that hemoglobin stable at 15.1 and a letter lites are relatively within normal limits with exception of magnesium which is 1.5 and replaced. There is no evidence of transaminitis. CT of the abdomen was performed and showed inflammation of the left lower quadrant but no other specific pathology. However, there is concern as the patient is frail and debilitated and has underlying psychiatric illness. Therefore other emergent pathology cannot be completely excluded and therefore it is felt the patient should be placed in observation overnight for continued hydration and monitoring.. Additionally, the patient has been given multiple doses of narcotics and continues to have symptoms.Explained all labs and diagnostic test results and that we will admit patient to hospital. Pt is agreeable to plan and case has been discussed with Dr. Harkins and they agree to accept the pt. - Lab Data Result diagrams: 11/09/17 15:05 11/09/17 15:05 Lab Results 11/09/17 11/09/17 11/09/17 Range/Units 15:05 15:05 15:05 WBC 7.1 (3.8-10.6) k/uL RBC 5.03 (4.30-5.90) m/uL Hgb 15.1 (13.0-17.5) gm/dL Hct 45.0 (39.0-53.0) % MCV 89.4 (80.0-100.0) fL MCH 30.1 (25.0-35.0) pg MCHC 33.7 (31.0-37.0) g/dL RDW 14.2 (11.5-15.5) % Plt Count 227 (150-450) k/uL Neutrophils % 59 % Lymphocytes % 34 % Monocytes % 4 % Eosinophils % 2 % Basophils % 0 % Neutrophils # 4.2 (1.3-7.7) k/uL Lymphocytes # 2.4 (1.0-4.8) k/uL Monocytes # 0.3 (0-1.0) k/uL Eosinophils # 0.1 (0-0.7) k/uL Basophils # 0.0 (0-0.2) k/uL Sodium 138 (137-145) mmol/L Potassium 3.7 (3.5-5.1) mmol/L Chloride 103 (98-107) mmol/L Carbon Dioxide 23 (22-30) mmol/L Anion Gap 12 mmol/L BUN 5 L (9-20) mg/dL Creatinine 0.48 L (0.66-1.25) mg/dL Est GFR (CKD-EPI)AfAm >90 (>60 ml/min/1.73 sqM) Est GFR (CKD-EPI)NonAf >90 (>60 ml/min/1.73 sqM) Glucose 98 (74-99) mg/dL Calcium 9.1 (8.4-10.2) mg/dL Magnesium 1.5 L (1.6-2.3) mg/dL Total Bilirubin 0.5 (0.2-1.3) mg/dL AST 24 (17-59) U/L ALT 22 (21-72) U/L Alkaline Phosphatase 119 (38-126) U/L Troponin I <0.012 (0.000-0.034) ng/mL Total Protein 6.4 (6.3-8.2) g/dL Albumin 3.5 (3.5-5.0) g/dL Lipase 25 (23-300) U/L 11/09/17 15:30 Normal sinus rhythm with a rate of 69 bpm, WA interval 160, QRS 106, QTC 450. No significant ST depressions or elevations noted. Disposition Clinical Impression: Intractable abdominal pain Disposition: ADMITTED IP TO THIS HOSP Condition: Fair Instructions: Abdominal Pain (ED) Referrals: Des Prince MD [Primary Care Provider] - 1-2 days Time of Disposition: 17:52
[2017-11-09 15:26] LABS: Basophils % (A) 0 %; Eosinophils # (A) 0.1 k/uL (0-0.7); Eosinophils % (A) 2 %; HGB 15.1 gm/dL (13.0-17.5); Lymphocytes # (A) 2.4 k/uL (1.0-4.8); Lymphocytes % (A) 34 %; MCH 30.1 pg (25.0-35.0); MCHC 33.7 g/dL (31.0-37.0); MCV 89.4 fL (80.0-100.0); Mean Platelet Volume 8.7; Monocytes # (A) 0.3 k/uL (0-1.0); Monocytes % (A) 4 %; Neutrophils # (A) 4.2 k/uL (1.3-7.7); Neutrophils % (A) 59 %; Platelet Count 227 k/uL (150-450); RBC 5.03 m/uL (4.30-5.90); RDW 14.2 % (11.5-15.5); WBC 7.1 k/uL (3.8-10.6)
[2017-11-09 15:35] LABS: ALT 22 U/L (21-72); AST 24 U/L (17-59); Albumin 3.5 g/dL (3.5-5.0); Alkaline Phosphatase 119 U/L (38-126); Anion Gap 12 mmol/L; Blood Urea Nitrogen 5 mg/dL (9-20); Calcium 9.1 mg/dL (8.4-10.2); Carbon Dioxide 23 mmol/L (22-30); Chloride 103 mmol/L (98-107); Glucose 98 mg/dL (74-99); Lipase 25 U/L (23-300); Magnesium 1.5 mg/dL (1.6-2.3); Potassium 3.7 mmol/L (3.5-5.1); Sodium 138 mmol/L (137-145); Total Bilirubin 0.5 mg/dL (0.2-1.3); Total Protein 6.4 g/dL (6.3-8.2)
[2017-11-09] MEDS: MAGNESIUM SULFATE-D5W PMX 1 GM in DEXTROSE/WATER 1 100ML.BAG IVPB SCH ×2 (16:26→18:23)
--- NOTE | 2017-11-09 17:31 | CT ---
EXAMINATION TYPE: CT abdomen pelvis w con DATE OF EXAM: 11/09/2017 COMPARISON: NONE HISTORY: Generalized abd pain, NVD. CT DLP: 803.5 mGycm Automated exposure control for dose reduction was used. TECHNIQUE: Helical acquisition of images from the lung bases through the pelvis have been completed. CONTRAST: Performed without Oral Contrast and with IV Contrast, patient injected with 100ml mL of Isovue 300. FINDINGS: There are coronary artery calcifications. LUNG BASES: No significant abnormality is appreciated. AORTA: No significant abnormality is appreciated. LIVER/GB: No significant abnormality is appreciated. PANCREAS: No significant abnormality is seen. SPLEEN: No significant abnormality is seen. ADRENALS: No significant abnormality is seen. KIDNEYS: No significant abnormality is seen. REPRODUCTIVE ORGANS: No significant abnormality is seen BOWEL: Postop changes are noted to the bowel, an ostomy is present in the left lower quadrant. Some inflammatory change suspected, some minimal fluid in the mesenteric fat in the left lower quadrant. FREE AIR: No Free Air visible. PELVIC ADENOPATHY: None visualized. RETROPERITONEAL ADENOPATHY: No Retroperitoneal Adenopathy visible. URINARY BLADDER: No significant abnormality is seen. OSSEOUS STRUCTURES: No significant abnormality is seen. IMPRESSION: POSTOP CHANGES. THERE MAY BE SOME INFLAMMATORY CHANGE IN THE MESENTERIC FAT.
[2017-11-09] MEDS ORDERED: NALOXONE 0.4 MG/ML 1 ML VIAL IV PRN (17:53)
[2017-11-09 18:04] LABS: Appearance,Urine Clear (Clear); Bilirubin,Urine Negative (Negative); Blood,Urine Negative (Negative); Color,Urine Yellow; Glucose,Urine (UA) Negative (Negative); Ketones,Urine Negative (Negative); Leukocyte Esterase,Urine Negative (Negative); Mucus,Urine Rare /hpf; Nitrite,Urine Negative (Negative); Protein,Urine 1+ (Negative); RBC,Urine 4 /hpf (0-5); Squamous Epithelial Cell,Urine 1 /hpf (0-4); WBC,Urine 1 /hpf (0-5)
[2017-11-09] MEDS: MORPHINE SULFATE 4MG/4ML SYRG IV PRN ×2 (20:08→23:34)
[2017-11-09] MEDS: ONDANSETRON 4 MG/2 ML VIAL IVP PRN (21:15)
[2017-11-09 21:30] VITALS: BMI 27.4
[2017-11-09] MEDS ORDERED: LORazepam 2 MG/ML INJ IV STA (22:58)
[2017-11-10] MEDS: MORPHINE SULFATE 4MG/4ML SYRG IV PRN ×2 (06:08→09:51)
[2017-11-10] MEDS: ONDANSETRON 4 MG/2 ML VIAL IVP PRN ×3 (06:09→18:11)
[2017-11-10] MEDS: HEPARIN SODIUM,PORCINE 5,000 UNIT/ML 1 ML VIAL SQ SCH (13:00)
[2017-11-10] MEDS ORDERED: ONDANSETRON 4 MG TAB PO PRN (14:04)
[2017-11-10] MEDS ORDERED: MORPHINE SULFATE 4MG/4ML SYRG IVP PRN (14:06)
[2017-11-10] MEDS: MORPHINE SULFATE 4MG/4ML SYRG IVP PRN ×3 (14:22→21:31)
[2017-11-10] MEDS: SODIUM CHLORIDE 0.9% 1,000 ML IV SCH (14:24)
[2017-11-10] MEDS ORDERED: ALBUTEROL NEBULIZED 2.5 MG/3 ML INHALATION PRN (14:27)
[2017-11-10] MEDS ORDERED: NITROGLYCERIN SL TABS 0.4 MG TAB SUBLINGUAL PRN (14:27)
--- NOTE | 2017-11-10 14:35 | P.HPIM ---
History of Present Illness This is a pleasant 57 years old male with past medical history of CAD, COPD, GERD, hypertension, all A, hepatitis A, chronic pain, gout, MRSA infection, status post cardiac cath understands who presents last night because of abdominal pain associated with nausea and vomiting of 2 weeks duration duration the pain is located around the colostomy bag, sharp, no aggravating or relieving factors Is having several bouts of vomiting this like 310-15 as per pt, mainly yellow in color, no blood noticed in it on 03/2017 he underwent Ferris's procedure for Perforated sigmoid colon s/p colostomy EKG shows normal sinus rhythm at [address]-T changes CT of the abdomen with contrast shows there was possible some inflammatory changes in the mesentery Patient states she has a rash on both upper extremity with this for about last 6 months on local treatment for it Review of Systems 10 point systemic review were negative except was mentioned in HPI Past Medical History Past Medical History: Chest Pain / Angina, COPD, GERD/Reflux, Hypertension, Myocardial Infarction ([place]), Osteoarthritis ([place]) Additional Past Medical History / Comment(s): History of hepatitis A, chronic pain, gout, "kidneys shut down x2 when sick". Last Myocardial Infarction Date:: 1999 History of Any Multi-Drug Resistant Organisms: MRSA Date of last positivie culture/infection: 12/2015 MDRO Source:: THERESA LEG Past Surgical History: Bowel Resection, Heart Catheterization With Stent, Hernia Repair, Orthopedic Surgery Additional Past Surgical History / Comment(s): Shoulder surgery, hernia as a child, cataracts, pain clinic procedures, colostomy. Past Anesthesia/Blood Transfusion Reactions: No Reported Reaction Date of Last Stent Placement:: 1999 Past Psychological History: No Psychological Hx Reported Smoking Status: Current every day smoker Past Alcohol Use History: Occasional Additional Past Alcohol Use History / Comment(s): States he smokes 1/2 PPD since age 18. States he hasn't drank alcohol in over a month and his use is occasional. Past Drug Use History: None Reported - Past Family History Mother Family Medical History: Cancer, Myocardial Infarction ([place]) Father Family Medical History: Myocardial Infarction ([place]) Sister(s) Family Medical History: Cancer Additional Family Medical History / Comment(s): Sisters x2 Medications and Allergies Home Medications Medication Instructions Recorded Confirmed Type Albuterol Inhaler [Ventolin Hfa 2 puff INHALATION RT-Q6H PRN 04/15/18 04/15/18 History Inhaler] Atenolol [Tenormin] 100 mg PO DAILY 11/10/17 11/10/17 History Atorvastatin [Lipitor] 80 mg PO HS 11/10/17 11/10/17 History Cetirizine HCl [Zyrtec] 10 mg PO DAILY 11/10/17 11/10/17 History Clindamycin Gel [Clindamycin 1 applic TOPICAL BID 11/10/17 11/10/17 History Phosphate] Diclofenac Sodium [Voltaren Gel] 2 gram TOPICAL QID 11/10/17 11/10/17 History Doxycycline Hyclate 100 mg PO BID 11/10/17 11/10/17 History Furosemide [Lasix] 40 mg PO DAILY 11/10/17 11/10/17 History Halobetasol Propionate 1 applic TOPICAL BID 11/10/17 11/10/17 History Nitroglycerin Sl Tabs [Nitrostat] 0.4 mg SUBLINGUAL Q5M PRN 11/10/17 11/10/17 History clonazePAM [KlonoPIN] 1 mg PO BID 11/10/17 11/10/17 History hydrALAZINE HCL 50 mg PO BID 11/10/17 11/10/17 History hydrOXYzine HCL [Atarax] 25 mg PO HS 11/10/17 11/10/17 History oxyCODONE HCL 20 mg PO Q6HR 11/10/17 11/10/17 History Allergies Allergy/AdvReac Type Severity Reaction Status Date / Time No Known Allergies Allergy Verified 11/09/17 21:30 Physical Exam Vitals: Vital Signs Temp Pulse Pulse Resp BP BP Pulse Ox 11/10/17 06:20 97.3 F L 76 14 148/71 95 11/09/17 22:57 98.1 F 68 20 138/68 97 11/09/17 18:56 16 11/09/17 18:24 97.5 F L 88 16 149/68 99 11/09/17 17:00 90 16 150/89 99 11/09/17 16:00 82 16 138/77 99 11/09/17 14:10 86 18 135/74 98 Intake and Output 11/09/17 11/10/17 11/10/17 22:59 06:59 14:59 Other: Voiding Method Toilet # Voids 1 2 Weight 79.5 kg Constitutional: No acute distress, conversant, pleasant Eyes: Anicteric sclerae, moist conjunctiva, no lid-lag PERRLA ENMT: NC/AT Oropharynx clear, no erythema, exudates Neck: Supple, FROM, no masses, or JVD No carotid bruits No thyromegaly Lungs: Clear to auscultation Clear to percussion Normal respiratory effort, no accessory muscle use Cardiovascular: Heart regular in rate and rhythm, No murmurs, gallops, or rubs No peripheral edema Abdominal: Soft Nontender, no guarding, rebound or rigidity Abdomen moving with respiration Normoactive bowel sounds No hepatomegaly, No splenomegaly No palpable mass No abdominal wall hernia noted Skin: Normal temperature, tone, texture, turgor No induration No subcutaneous nodules No rash, lesions No ulcers Extremities: No digital cyanosis No clubbing Pedal pulses intact and symmetrical Radial pulses intact and symmetrical Normal gait and station No calf tenderness Psychiatric: Alert and oriented to person, place and time Appropriate affect Intact judgement Neuro: Muscles Strength 5/5 in all 4 extremities Sensation to light touch grossly present throughout Cranial nerves II-XII grossly intact No focal sensory deficits Results CBC & Chem 7: 11/09/17 15:05 11/09/17 15:05 Labs: Abnormal Lab Results - Last 24 Hours (Table) 11/09/17 11/09/17 Range/Units 15:05 17:31 BUN 5 L (9-20) mg/dL Creatinine 0.48 L (0.66-1.25) mg/dL Magnesium 1.5 L (1.6-2.3) mg/dL Urine Protein 1+ H (Negative) Urine Mucus Rare H (None) /hpf Thrombosis Risk Factor Assmnt - Choose All That Apply Each Factor Represents 1 point: Age 41-60 years Other Risk Factors: No Other congenital or acquired thrombophilia - If yes, enter type in comment: No Thrombosis Risk Factor Assessment Total Risk Factor Score: 1 Thrombosis Risk Factor Assessment Level: Low Risk Assessment and Plan Plan: -Abdominal pain, of unknown etiology, could be related to mesenteric inflammation found on computed tomography scan of the abdomen Is associated with significant nausea and vomiting, several episodes, patient looks dehydrated, continue with IV fluids, NG tube, check lactic a, and call surgical consult, GI consult pain management d/w staff -Skin rash continue with the local treatment clindamycin gel and halobetasol pripionate gel , hold diclofenac gel -Hypertension on atenolol 100 mg daily and hydralazine 50 mg twice a day, hold this medication while nothing by mouth and start labetalol 5 mg IV every 12 hours plus hydralazine IV prn DVT prophylaxis saphenous heparin Dr. Prince will resume the care of the patient from tomorrow
[2017-11-10] MEDS ORDERED: hydrALAZINE HCL 20 MG/ML 1 ML VIAL IVP PRN (14:38)
[2017-11-10 15:02] LABS: Magnesium 2.1 mg/dL (1.6-2.3)
[2017-11-10 19:33] LABS: Basophils % (A) 0 %; Eosinophils # (A) 0.1 k/uL (0-0.7); Eosinophils % (A) 1 %; HCT 40.5 % (39.0-53.0); HGB 13.7 gm/dL (13.0-17.5); Lymphocytes # (A) 1.9 k/uL (1.0-4.8); Lymphocytes % (A) 38 %; MCH 30.3 pg (25.0-35.0); MCHC 33.7 g/dL (31.0-37.0); MCV 89.9 fL (80.0-100.0); Mean Platelet Volume 8.1; Monocytes # (A) 0.2 k/uL (0-1.0); Monocytes % (A) 5 %; Neutrophils # (A) 2.7 k/uL (1.3-7.7); Neutrophils % (A) 55 %; Platelet Count 205 k/uL (150-450); RBC 4.51 m/uL (4.30-5.90); RDW 14.1 % (11.5-15.5)
[2017-11-10] MEDS ORDERED: RX INFO: IV CONTRAST WAS GIVEN 1 EACH MISC MISCELLANE PRN ×3 (19:36→20:47)
[2017-11-10] MEDS ORDERED: BARIUM SULFATE 450 ML ORAL.SUSP BOTTLE PO PRN (19:36)
[2017-11-10] MEDS: LORazepam 2 MG/ML INJ IV PRN (20:44)
[2017-11-10] MEDS ORDERED: HEPARIN SODIUM,PORCINE 5,000 UNIT/ML 1 ML VIAL SQ SCH (21:00)
[2017-11-10] MEDS: IOPAMIDOL-300 CONTRAST 30 ML VIAL (ORAL USE) PO PRN ×2 (21:01→22:49)
[2017-11-10] MEDS: CLINDAMYCIN TOPICAL SCH (23:02)
[2017-11-11] MEDS: LABETALOL 5 MG/ML VIAL MDV IVP SCH ×2 (00:03→08:22)
[2017-11-11] MEDS: HEPARIN SODIUM,PORCINE 5,000 UNIT/ML 1 ML VIAL SQ SCH ×3 (00:09→20:45)
[2017-11-11] MEDS: CLOBETASOL PROP 0.05% CR 15GM TOPICAL SCH ×3 (00:11→20:46)
--- NOTE | 2017-11-11 00:12 | CT ---
EXAMINATION TYPE: CT abdomen pelvis w con DATE OF EXAM: 11/10/2017 COMPARISON: NONE HISTORY: Prior exam done 11/09/17, persistent abd pain with NVD, history of bowel resection CT DLP: 837.90 mGycm Automated exposure control for dose reduction was used. TECHNIQUE: Helical acquisition of images was performed from the lung bases through the pelvis. CONTRAST: Performed with Oral Contrast and with IV Contrast, patient injected with 100 mL of Isovue 300. FINDINGS: Lung bases are clear of infiltrate. There is no pleural effusion. There is no pericardial effusion. T here is a nasogastric tube. Liver spleen pancreas gallbladder appear normal. Bile ducts are not dilat ed. There is no adrenal mass. Kidneys show satisfactory contrast opacification. There is no hydronephrosi s. Abdominal aorta is atheromatous. There is no retroperitoneal adenopathy. There is a colostomy in t he left mid abdomen. I see no intestinal wall thickening. There are no dilated loops. There is high a ttenuation in the urinary bladder. I do not see any significant contrast in the ureters or renal maribeth ecting systems. There is no evidence of a pelvic mass. There is an apparent rectal stump that contain s fecal material. Urinary bladder wall is slightly thickened. I see no bony destructive process. Ther e is mild atheromatous change in the abdominal aorta. IMPRESSION: HIGH ATTENUATION IN THE URINARY BLADDER WITH MILD BLADDER WALL THICKENING. THIS COULD RELATE TO HEMOR RHAGIC CYSTITIS. NO OTHER SIGNIFICANT ABNORMALITY SEEN.
[2017-11-11] MEDS: SODIUM CHLORIDE 0.9% 1,000 ML IV SCH ×3 (00:55→20:48)
[2017-11-11] MEDS: MORPHINE SULFATE 4MG/4ML SYRG IVP PRN ×5 (02:39→20:55)
--- NOTE | 2017-11-11 05:17 | P.CONS ---
History of Present Illness - Reason for Consult Consult date: 11/10/17 Abdominal pain, nausea and vomiting. - History of Present Illness The patient is a 57-year-old male who presented to the emergency room with the complaints of abdominal pain and intractable vomiting. He also reported diarrhea in his colostomy bag. CT of the abdomen showed mild hemorrhagic cystitis but no other significant findings. An NG tube was placed for low intermittent suction and is returning small amounts of dark bilious, slightly reddish returns. The patient had Snehal's procedure in March of last year because of perforated sigmoid secondary to diverticulitis and had release of adhesions at the time of his surgery. He had an upper endoscopy in December 2015 for chronic abdominal pain and that showed gastritis. The patient was briefly hospitalized last month for mental changes and delirium and was evaluated by neurology and psychiatry. It was believed that the this could have been related to medications and polypharmacy. He has been experiencing a skin rash involving his extremities which may be related to itching and infection. Review of Systems Constitutional: Denies fever, chills, sweats, weight gain, or loss. HEENT: Negative for migraines, blurred vision or loss, earaches, drainage, tinnitus, oral mucosal lesions, dysphagia, or odynophagia. CARDIAC: Negative for chest pain, arrhythmias, or palpitation. RESPIRATORY: Negative for shortness of breath, hemoptysis, cough, or sputum production. GI: See HPI for pertinent findings. : Negative for hematuria, urgency, frequency, polyuria, or dysuria. MUSCULOSKELETAL: Negative for muscle aches, swelling, arthritis, and arthralgias. NEUROLOGIC: Negative for stroke or TIA. ENDOCRINE: Negative for thyroid problems. SKIN: Rash over her extremities. PSYCHIATRIC: No definite history of depression and anxiety Past Medical History Past Medical History: Chest Pain / Angina, COPD, GERD/Reflux, Hypertension, Myocardial Infarction ([place]), Osteoarthritis ([place]) Additional Past Medical History / Comment(s): History of hepatitis A, chronic pain, gout, "kidneys shut down x2 when sick". Last Myocardial Infarction Date:: 1999 History of Any Multi-Drug Resistant Organisms: MRSA Year Discovered:: 12/2015 MDRO Source:: THERESA LEG Past Surgical History: Bowel Resection, Heart Catheterization With Stent, Hernia Repair, Orthopedic Surgery Additional Past Surgical History / Comment(s): Shoulder surgery, hernia as a child, cataracts, pain clinic procedures, colostomy. Past Anesthesia/Blood Transfusion Reactions: No Reported Reaction Date of Last Stent Placement:: 1999 Past Psychological History: No Psychological Hx Reported Smoking Status: Current every day smoker Past Alcohol Use History: Occasional Additional Past Alcohol Use History / Comment(s): States he smokes 1/2 PPD since age 18. States he hasn't drank alcohol in over a month and his use is occasional. Past Drug Use History: None Reported - Past Family History Mother Family Medical History: Cancer, Myocardial Infarction ([place]) Father Family Medical History: Myocardial Infarction ([place]) Sister(s) Family Medical History: Cancer Additional Family Medical History / Comment(s): Sisters x2 Medications and Allergies Home Medications Medication Instructions Recorded Confirmed Type Albuterol Inhaler [Ventolin Hfa 2 puff INHALATION RT-Q6H PRN 11/10/17 11/10/17 History Inhaler] Atenolol [Tenormin] 100 mg PO DAILY 11/10/17 11/10/17 History Atorvastatin [Lipitor] 80 mg PO HS 11/10/17 11/10/17 History Cetirizine HCl [Zyrtec] 10 mg PO DAILY 11/10/17 11/10/17 History Clindamycin Gel [Clindamycin 1 applic TOPICAL BID 11/10/17 11/10/17 History Phosphate] Diclofenac Sodium [Voltaren Gel] 2 gram TOPICAL QID 11/10/17 11/10/17 History Doxycycline Hyclate 100 mg PO BID 11/10/17 11/10/17 History Furosemide [Lasix] 40 mg PO DAILY 11/10/17 11/10/17 History Halobetasol Propionate 1 applic TOPICAL BID 11/10/17 11/10/17 History Nitroglycerin Sl Tabs [Nitrostat] 0.4 mg SUBLINGUAL Q5M PRN 11/10/17 11/10/17 History clonazePAM [KlonoPIN] 1 mg PO BID 11/10/17 11/10/17 History hydrALAZINE HCL 50 mg PO BID 11/10/17 11/10/17 History hydrOXYzine HCL [Atarax] 25 mg PO HS 11/10/17 11/10/17 History oxyCODONE HCL 20 mg PO Q6HR 11/10/17 11/10/17 History Allergies Allergy/AdvReac Type Severity Reaction Status Date / Time No Known Allergies Allergy Verified 11/09/17 21:30 Physical Exam Vitals: Vital Signs Temp Pulse Resp BP Pulse Ox 11/10/17 15:00 97.9 F 64 18 157/77 97 11/10/17 06:20 97.3 F L 76 14 148/71 95 11/09/17 22:57 98.1 F 68 20 138/68 97 11/09/17 18:56 16 Intake and Output 11/10/17 11/10/17 11/10/17 06:59 14:59 22:59 Output Total 100 800 Balance -100 -800 Output: Gastric Drainage 800 Oral Regurgitation 100 Other: # Voids 2 3 # Bowel Movements 1 General appearance: The patient is alert, oriented, in distress secondary to his abdominal symptoms and the NG tube. HET: Head is normocephalic and atraumatic. Conjunctivae pink, sclerae not icteric. Pupils are equal and reactive. Oropharynx is clear without lesions. NG tube returned dark bilious/reddish returns. Neck: Supple without lymphadenopathy. Trachea midline. Heart: S1 S2. Regular rate and rhythm. Lungs: No crackles or wheezes are heard. Abdomen: Soft, nondistended bowel sounds present. No peritoneal signs. No palpable organomegaly or masses. Extremities: Normal skin color and turgor. Has scattered ulcerated skin lesions over extremities. No cyanosis, clubbing, or edema. Radial and pedal pulses are 2/4 bilaterally. Neurological: No focal deficits. Strength and sensation are grossly intact. Results CBC & Chem 7: 11/10/17 19:25 11/09/17 15:05 Labs: Abnormal Lab Results - Last 24 Hours (Table) 11/10/17 11/10/17 Range/Units 14:36 14:36 Plasma Lactic Acid Joce 0.6 L (0.7-2.0) mmol/L Lipase 15 L (23-300) U/L Assessment and Plan Assessment: Intractable nausea and vomiting could be on the basis of gastritis or peptic ulcer disease. Metabolic causes including medication and drug withdrawal to be kept in mind in light of his recent hospitalization for mental changes and delirium. Computed tomography scan is not showing any evidence to suggest intestinal obstruction or gastric outlet obstruction. Plan: I agree with your current management. Depending on the NG returns, will consider clamping the tube then discontinuing it. Further workup including upper endoscopy will be made based on his course. Will continue to follow with you with interest.
[2017-11-11] MEDS: CLINDAMYCIN TOPICAL SCH (08:11)
--- NOTE | 2017-11-11 08:32 | P.PN ---
Subjective Progress Note Date: 11/11/17 Principal diagnosis: This continue present 57-year-old white male essentially admitted for abdominal pain of unknown etiology. Computed tomography scan does not show any type of obstructive element. I have down titrated his oxycodone from 160 mg daily to 80 mg 12 units daily. He continues to be on morphine otherwise. No significant chest pain or fever is stated. NG suction is now noted. Objective - Vital Signs Vital signs: Vital Signs Temp 96.8 F L 11/11/17 06:46 Pulse 71 11/11/17 06:46 Resp 20 11/11/17 06:46 BP 181/93 11/11/17 06:46 Pulse Ox 98 11/11/17 06:46 Intake & Output 11/10/17 11/11/17 11/11/17 18:59 06:59 18:59 Intake Total 0 Output Total 900 1500 Balance -900 -1500 Intake: Oral 0 Output: Gastric Drainage 800 1500 Oral Regurgitation 100 Other: # Voids 3 1 # Bowel Movements 1 0 - Constitutional General appearance: Present: average body habitus - EENT Eyes: Absent: abnormal pupil - Respiratory Respiratory: bilateral: CTA - Cardiovascular Rhythm: regular Heart sounds: normal: S1, S2 Abnormal Heart Sounds: Absent: S3 Gallop - Gastrointestinal General gastrointestinal: Present: soft, tenderness - Integumentary Integumentary: Present: rash - Labs CBC & Chem 7: 11/10/17 19:25 11/09/17 15:05 Labs: Abnormal Lab Results - Last 24 Hours (Table) 11/10/17 11/10/17 Range/Units 14:36 14:36 Plasma Lactic Acid Joce 0.6 L (0.7-2.0) mmol/L Lipase 15 L (23-300) U/L Assessment and Plan (1) Morgellons disease Current Visit: Yes Status: Acute Code(s): L98.8 - OTH DISRD OF THE SKIN AND SUBCUTANEOUS TISSUE SNOMED Code(s): 52773841 (2) Intractable abdominal pain Current Visit: Yes Status: Acute Code(s): R10.9 - UNSPECIFIED ABDOMINAL PAIN SNOMED Code(s): 58766464 (3) Diverticulitis of colon with perforation Current Visit: No Status: Acute Code(s): K57.20 - DVTRCLI OF LG INT W PERFORATION AND ABSCESS W/O BLEEDING SNOMED Code(s): 14582986 Plan: We'll continue to follow with GI. Check CBC and CMP in a.m. Question element of colitis, given his history of diverticular disease in the past. Continue current regimen medication and watch blood pressure closely. Time with Patient: Less than 30
[2017-11-11 08:52] LABS: Basophils % (A) 0 %; Eosinophils # (A) 0.1 k/uL (0-0.7); Eosinophils % (A) 1 %; HCT 39.5 % (39.0-53.0); HGB 13.2 gm/dL (13.0-17.5); Lymphocytes # (A) 1.9 k/uL (1.0-4.8); Lymphocytes % (A) 29 %; MCH 30.4 pg (25.0-35.0); MCHC 33.3 g/dL (31.0-37.0); MCV 91.2 fL (80.0-100.0); Mean Platelet Volume 8.1; Monocytes # (A) 0.3 k/uL (0-1.0); Monocytes % (A) 5 %; Neutrophils # (A) 4.2 k/uL (1.3-7.7); Neutrophils % (A) 64 %; Platelet Count 201 k/uL (150-450); RBC 4.33 m/uL (4.30-5.90); RDW 14.2 % (11.5-15.5); WBC 6.5 k/uL (3.8-10.6)
[2017-11-11] MEDS ORDERED: ATENOLOL 50 MG TAB PO SCH (09:00)
[2017-11-11 09:05] LABS: Anion Gap 11 mmol/L; Blood Urea Nitrogen 7 mg/dL (9-20); Calcium 8.5 mg/dL (8.4-10.2); Carbon Dioxide 29 mmol/L (22-30); Chloride 106 mmol/L (98-107); Glucose 90 mg/dL (74-99); Magnesium 2.1 mg/dL (1.6-2.3); Potassium 3.4 mmol/L (3.5-5.1); Sodium 146 mmol/L (137-145)
[2017-11-11] MEDS ORDERED: Potassium Replacement Protocol 1 EACH MISC MISCELLANE PRN ×2 (10:13→11:40)
--- NOTE | 2017-11-11 10:39 | P.PN ---
Subjective Progress Note Date: 11/11/17 Principal diagnosis: Abdominal pain nausea vomiting 57-year-old male admitted with intractable abdominal pain nausea vomiting with history of Ferris's procedure March 2017. Presently this morning he has formed brown stool in his ostomy reporting some pain around the ostomy. Also has chronic back pain and is reporting increased back pain as well. NG tube was placed on admission with rest colored appearance. Approximately 100 mL and chemistry at this time however hemoglobin is stable at 13.6. CT of the abdomen and pelvis reported a bladder wall thickening possible hemorrhagic cystitis. No dilated bowel loops. No intestinal wall thickening. Objective - Vital Signs Vital signs: Vital Signs Temp 96.8 F L 11/11/17 06:46 Pulse 71 11/11/17 06:46 Resp 20 11/11/17 06:46 BP 181/93 11/11/17 06:46 Pulse Ox 98 11/11/17 06:46 Intake & Output 11/10/17 11/11/17 11/11/17 18:59 06:59 18:59 Intake Total 0 Output Total 900 1500 150 Balance -900 -1500 -150 Intake: Oral 0 Output: Gastric Drainage 800 1500 150 Oral Regurgitation 100 Other: # Voids 3 1 # Bowel Movements 1 0 - Exam General appearance: The patient is alert, oriented, in no acute distress. HET: Head is normocephalic and atraumatic. Pupils are equal and reactive. Oropharynx is clear without lesions. NG tube with breast colored mixed bilious fluid. Neck: Supple without lymphadenopathy. Trachea midline. Heart: S1 S2. Regular rate and rhythm. Lungs: No crackles or wheezes are heard. Abdomen: Soft, mild tenderness around ostomy with formed brown stool in bad, nondistended with bowel sounds. No peritoneal signs. No palpable organomegaly or masses. Extremities: Normal skin color and turgor. No cyanosis, rash, ulceration, clubbing, or edema. Radial and pedal pulses are 2/4 bilaterally. Neurological: No focal deficits. Strength and sensation are grossly intact. - Labs CBC & Chem 7: 11/11/17 08:21 11/11/17 08:21 Labs: Abnormal Lab Results - Last 24 Hours (Table) 11/10/17 11/10/17 11/11/17 Range/Units 14:36 14:36 08:21 Sodium 146 H (137-145) mmol/L Potassium 3.4 L (3.5-5.1) mmol/L BUN 7 L (9-20) mg/dL Creatinine 0.46 L (0.66-1.25) mg/dL Plasma Lactic Acid Joce 0.6 L (0.7-2.0) mmol/L Lipase 15 L (23-300) U/L Assessment and Plan (1) Abdominal pain Narrative/Plan: 57-year-old male with a history of Ferris's procedure 2017 presents with intractable nausea vomiting abdominal pain with insertion of NG tube return of mixed bilious rust colored fluid. He will in stable at 13.6. CT reported no evidence of bowel obstruction intestinal wall thickening. Possible hemorrhagic cystitis. Possibility of NG tube irritation causing rust colored bilious appearance is possible however underlying peptic ulcer disease and gastritis cannot be excluded. Current Visit: Yes Status: Acute Code(s): R10.9 - UNSPECIFIED ABDOMINAL PAIN SNOMED Code(s): 50639823 (2) Status post Snehal procedure Current Visit: Yes Status: Acute Code(s): Z93.3 - COLOSTOMY STATUS SNOMED Code(s): 586999798 (3) Diverticulitis of colon with perforation Current Visit: No Status: Acute Code(s): K57.20 - DVTRCLI OF LG INT W PERFORATION AND ABSCESS W/O BLEEDING SNOMED Code(s): 28556944 Plan: 1. Case was discussed with Dr. Carreon considering hemoglobin is stable and patient's ostomy is producing formed brown bowel movements we'll remove NG tube and observe. Will allow clear liquids. CBC monitoring. GI prophylaxis IV Protonix 40 mg daily. General surgery following. Inpatient endoscopic exams are not planned at this time but contingent on clinical course; will reevaluate in a.m. If patient has a drop in hemoglobin or develops symptoms of active GI bleed we'll proceed with EGD. 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 Assessment and plan of care discussed with Dr. Carreon
[2017-11-11] MEDS: POTASSIUM CHLORIDE 10 MEQ in WATER FOR INJECTION 1 100ML.BAG IVPB SCH ×2 (11:09→11:42)
[2017-11-11] MEDS: PANTOPRAZOLE 40 MG/10 ML VIAL IVP SCH (11:09)
[2017-11-11] MEDS: POTASSIUM CHLORIDE ER 20 MEQ TAB.ER PO SCH (13:41)
--- NOTE | 2017-11-11 13:43 | P.GSCN ---
<Vanessa Bui - Last Filed: 11/11/17 13:25> History of Present Illness Consult date: 11/11/17 Reason for Consult: Abdominal pain History of present illness: 57-year-old presented to the emergency room on the day of admission with a chief complaint of developing nausea vomiting with abdominal cramping. Patient stated the abdominal pain was on the left lower side of his ostomy. Stated that the pain came on suddenly. Could not keep any fluid down. Came into the emergency room to be evaluated for the above-mentioned symptoms patient stated that when he was vomiting he did not note any blood in the emesis. Given the above clinical presentation the attending has requested a surgical eval. Patient is known to Dr. Rodriguez service in March 2017 presented with abdominal pain was found to have acute diverticulitis with microperforation. Was taken to the operating room for Ferris's procedure. Patient states his ostomy has been functioning well. In the emergency room this admission CAT scan of the abdomen pelvis showed mild hemorrhagic cystitis but no other significant findings. No dilated bowel loops Nasogastric tube has been placed for low intermittent suction it is returning a moderate amount of dark bilious slightly reddish in appearance secretions. The ostomy form soft brown stool noted in the bag. Additionally patient is reportedly experiencing chronic lower back pain radiating up to the right shoulder states he cannot stand the pain. Review of Systems Essentially unremarkable except as mentioned in the present illness Past Medical History Past Medical History: Chest Pain / Angina, COPD, GERD/Reflux, Hypertension, Myocardial Infarction (MA), Osteoarthritis (OA) Additional Past Medical History / Comment(s): History of hepatitis A, chronic pain, gout, "kidneys shut down x2 when sick". Last Myocardial Infarction Date:: 1999 History of Any Multi-Drug Resistant Organisms: MRSA Year Discovered:: 12/2015 MDRO Source:: [facility]G Past Surgical History: Bowel Resection, Heart Catheterization With Stent, Hernia Repair, Orthopedic Surgery Additional Past Surgical History / Comment(s): Shoulder surgery, hernia as a child, cataracts, pain clinic procedures, colostomy. Past Anesthesia/Blood Transfusion Reactions: No Reported Reaction Date of Last Stent Placement:: 1999 Past Psychological History: No Psychological Hx Reported Smoking Status: Current every day smoker Past Alcohol Use History: Occasional Additional Past Alcohol Use History / Comment(s): States he smokes 1/2 PPD since age 18. States he hasn't drank alcohol in over a month and his use is occasional. Past Drug Use History: None Reported - Past Family History Mother Family Medical History: Cancer, Myocardial Infarction (MA) Father Family Medical History: Myocardial Infarction (MA) Sister(s) Family Medical History: Cancer Additional Family Medical History / Comment(s): Sisters x2 Medications and Allergies Home Medications Medication Instructions Recorded Confirmed Type Albuterol Inhaler [Ventolin Hfa 2 puff INHALATION RT-Q6H PRN 11/10/17 11/10/17 History Inhaler] Atenolol [Tenormin] 100 mg PO DAILY 11/10/17 11/10/17 History Atorvastatin [Lipitor] 80 mg PO HS 11/10/17 11/10/17 History Cetirizine HCl [Zyrtec] 10 mg PO DAILY 11/10/17 11/10/17 History Clindamycin Gel [Clindamycin 1 applic TOPICAL BID 11/10/17 11/10/17 History Phosphate] Diclofenac Sodium [Voltaren Gel] 2 gram TOPICAL QID 11/10/17 11/10/17 History Doxycycline Hyclate 100 mg PO BID 11/10/17 11/10/17 History Furosemide [Lasix] 40 mg PO DAILY 11/10/17 11/10/17 History Halobetasol Propionate 1 applic TOPICAL BID 11/10/17 11/10/17 History Nitroglycerin Sl Tabs [Nitrostat] 0.4 mg SUBLINGUAL Q5M PRN 11/10/17 11/10/17 History clonazePAM [KlonoPIN] 1 mg PO BID 11/10/17 11/10/17 History hydrALAZINE HCL 50 mg PO BID 11/10/17 11/10/17 History hydrOXYzine HCL [Atarax] 25 mg PO HS 11/10/17 11/10/17 History oxyCODONE HCL 20 mg PO Q6HR 11/10/17 11/10/17 History Allergies Allergy/AdvReac Type Severity Reaction Status Date / Time No Known Allergies Allergy Verified 11/09/17 21:30 Surgical - Exam Vital Signs Pulse Resp BP Pulse Ox 86 18 135/74 98 11/09/17 14:10 11/09/17 14:10 11/09/17 14:10 11/09/17 14:10 GENERAL APPEARANCE: 57-year-old patient is alert, resting in bed chief complaint this morning is "unbearable lower back discomfort radiating up to right shoulder VITAL SIGNS: Reviewed HEENT: Head is normocephalic and atraumatic. Pupils are equal and reactive. The nares are patent. Oropharynx is clear without lesions. NECK: Supple without lymphadenopathy. Traches midline. HEART: S1, S2. Regular rate and rhythm. No murmur noted denying chest pain LUNGS: No crackles or wheezes are heard. Good air movement bilaterally on room air no cough ABDOMEN: Soft, nasal gastric tube to suction rust colored secretions noted in the tubing and canister. Diffuse tenderness across the abdominal wall reports left lower quadrant discomfort nondistended with good bowel sounds. No peritoneal signs. No palpable organomegaly or masses. States had one bowel movement no blood noted EXTREMITIES: Normal skin color and turgor. No cyanosis, rash, ulceration, clubbing or edema. Radial pedal pulses are 2/4 bilaterally. NEUROLOGICAL: No focal deficits. Strength and sensation are grossly intact. Results - Labs 11/11/17 08:21 11/11/17 08:21 Abnormal Lab Results - Last 24 Hours (Table) 11/10/17 11/10/17 11/11/17 Range/Units 14:36 14:36 08:21 Sodium 146 H (137-145) mmol/L Potassium 3.4 L (3.5-5.1) mmol/L BUN 7 L (9-20) mg/dL Creatinine 0.46 L (0.66-1.25) mg/dL Plasma Lactic Acid Joce 0.6 L (0.7-2.0) mmol/L Lipase 15 L (23-300) U/L Diabetes panel 11/11/17 Range/Units 08:21 Sodium 146 H (137-145) mmol/L Potassium 3.4 L (3.5-5.1) mmol/L Chloride 106 (98-107) mmol/L Carbon Dioxide 29 (22-30) mmol/L BUN 7 L (9-20) mg/dL Creatinine 0.46 L (0.66-1.25) mg/dL Glucose 90 (74-99) mg/dL Calcium 8.5 (8.4-10.2) mg/dL Calcium panel 11/11/17 Range/Units 08:21 Calcium 8.5 (8.4-10.2) mg/dL Pituitary panel 11/11/17 Range/Units 08:21 Sodium 146 H (137-145) mmol/L Potassium 3.4 L (3.5-5.1) mmol/L Chloride 106 (98-107) mmol/L Carbon Dioxide 29 (22-30) mmol/L BUN 7 L (9-20) mg/dL Creatinine 0.46 L (0.66-1.25) mg/dL Glucose 90 (74-99) mg/dL Calcium 8.5 (8.4-10.2) mg/dL Adrenal panel 11/11/17 Range/Units 08:21 Sodium 146 H (137-145) mmol/L Potassium 3.4 L (3.5-5.1) mmol/L Chloride 106 (98-107) mmol/L Carbon Dioxide 29 (22-30) mmol/L BUN 7 L (9-20) mg/dL Creatinine 0.46 L (0.66-1.25) mg/dL Glucose 90 (74-99) mg/dL Calcium 8.5 (8.4-10.2) mg/dL Assessment and Plan Assessment: Impression Present on admission abdominal pain with intractable nausea vomiting unclear etiology Status post Snehal's procedure done in March 2017 for perforation sigmoid colon Diverticulitis of the colon with resulting in a Ferris's procedure March 2017 CAT scan of the abdomen pelvis show no evidence of a bowel obstruction possible hemorrhagic cystitis Plan Continue recommendations GI service possible EGD if a drop in hemoglobin or symptomatic active GI bleed IV fluid hydration Pain control per medicine service defer to Further surgical recommendations pending will follow with you DVT and GI prophylaxis Surgical consult note dictated for Dr. Rodriguez The above impression and plan of care have been discussed and directed by signing physician. Vanessa Bui nurse practitioner acting as scribe for signing physician. <Ubaldo Rodriguez - Last Filed: 11/11/17 15:31> Surgical - Exam Vital Signs Pulse Resp BP Pulse Ox 86 18 135/74 98 11/09/17 14:10 11/09/17 14:10 11/09/17 14:10 11/09/17 14:10 Results - Labs 11/11/17 08:21 11/11/17 08:21 Abnormal Lab Results - Last 24 Hours (Table) 11/10/17 11/11/17 Range/Units 14:36 08:21 Sodium 146 H (137-145) mmol/L Potassium 3.4 L (3.5-5.1) mmol/L BUN 7 L (9-20) mg/dL Creatinine 0.46 L (0.66-1.25) mg/dL Plasma Lactic Acid Joce 0.6 L (0.7-2.0) mmol/L Diabetes panel 11/11/17 Range/Units 08:21 Sodium 146 H (137-145) mmol/L Potassium 3.4 L (3.5-5.1) mmol/L Chloride 106 (98-107) mmol/L Carbon Dioxide 29 (22-30) mmol/L BUN 7 L (9-20) mg/dL Creatinine 0.46 L (0.66-1.25) mg/dL Glucose 90 (74-99) mg/dL Calcium 8.5 (8.4-10.2) mg/dL Calcium panel 11/11/17 Range/Units 08:21 Calcium 8.5 (8.4-10.2) mg/dL Pituitary panel 11/11/17 Range/Units 08:21 Sodium 146 H (137-145) mmol/L Potassium 3.4 L (3.5-5.1) mmol/L Chloride 106 (98-107) mmol/L Carbon Dioxide 29 (22-30) mmol/L BUN 7 L (9-20) mg/dL Creatinine 0.46 L (0.66-1.25) mg/dL Glucose 90 (74-99) mg/dL Calcium 8.5 (8.4-10.2) mg/dL Adrenal panel 11/11/17 Range/Units 08:21 Sodium 146 H (137-145) mmol/L Potassium 3.4 L (3.5-5.1) mmol/L Chloride 106 (98-107) mmol/L Carbon Dioxide 29 (22-30) mmol/L BUN 7 L (9-20) mg/dL Creatinine 0.46 L (0.66-1.25) mg/dL Glucose 90 (74-99) mg/dL Calcium 8.5 (8.4-10.2) mg/dL Assessment and Plan Assessment: As above. CAT scan shows no evidence of bowel obstruction. Agree with removing nasogastric tube. Monitor hemoglobin. Etiology for this pain remains unclear although at this time the patient seems to be having more problems with chronic back pain. We'll follow with you.
[2017-11-11] MEDS: LIDOCAINE 5% PATCH TOPICAL SCH (15:51)
[2017-11-12] MEDS: LORazepam 2 MG/ML INJ IV PRN (00:11)
[2017-11-12] MEDS: MORPHINE SULFATE 4MG/4ML SYRG IVP PRN (02:54)
[2017-11-12] MEDS: SODIUM CHLORIDE 0.9% 1,000 ML IV SCH ×2 (06:18→17:36)
--- NOTE | 2017-11-12 07:15 | P.PN ---
Subjective Principal diagnosis: Continuing care. This is a continue present 57-year-old white male essentially admitted for severe abdominal pain. Appreciate surgical consult. The patient actually clinically is improving. Tolerating liquid at this time. Pain seems to be better controlled than yesterday. No significant nausea or vomiting. Patient with status post Ferris's pouch in March 2017 but because of skin rash, unable to do revision at this time. Rash seems to be much less angry appearing today. Objective - Vital Signs Vital signs: Vital Signs Temp 97.3 F L 11/12/17 06:40 Pulse 59 L 11/12/17 06:40 Resp 20 11/12/17 06:40 BP 130/78 11/12/17 06:40 Pulse Ox 96 11/12/17 06:40 Intake & Output 11/11/17 11/12/17 11/12/17 18:59 06:59 18:59 Intake Total 120 100 Output Total 450 Balance -330 100 Weight 79.5 kg 79.5 kg Intake: Oral 120 100 Output: Gastric Drainage 150 Stool 300 Other: Voiding Method Toilet # Voids 1 1 - Constitutional General appearance: Present: obese - EENT Eyes: Absent: abnormal pupil - Respiratory Respiratory: bilateral: CTA - Cardiovascular Rhythm: regular Heart sounds: normal: S1, S2 Abnormal Heart Sounds: Absent: S3 Gallop - Gastrointestinal General gastrointestinal: Present: soft. Absent: tenderness - Neurologic Neurologic: Absent: CNII-XII intact, focal deficits - Labs CBC & Chem 7: 11/11/17 08:21 11/11/17 08:21 Labs: Abnormal Lab Results - Last 24 Hours (Table) 11/11/17 Range/Units 08:21 Sodium 146 H (137-145) mmol/L Potassium 3.4 L (3.5-5.1) mmol/L BUN 7 L (9-20) mg/dL Creatinine 0.46 L (0.66-1.25) mg/dL Assessment and Plan (1) Morgellons disease Current Visit: Yes Status: Acute Code(s): L98.8 - OTH DISRD OF THE SKIN AND SUBCUTANEOUS TISSUE SNOMED Code(s): 37865882 (2) Intractable abdominal pain Current Visit: Yes Status: Acute Code(s): R10.9 - UNSPECIFIED ABDOMINAL PAIN SNOMED Code(s): 31061362 (3) Diverticulitis of colon with perforation Current Visit: No Status: Acute Code(s): K57.20 - DVTRCLI OF LG INT W PERFORATION AND ABSCESS W/O BLEEDING SNOMED Code(s): 29700030 Plan: Continue current regimen of treatment. Clinically, the patient is improving. Check CBC and CMP in a.m. Pain control is stable at this time. Time with Patient: Less than 30
[2017-11-12] MEDS: LIDOCAINE 5% PATCH TOPICAL SCH (07:29)
[2017-11-12] MEDS: PANTOPRAZOLE 40 MG/10 ML VIAL IVP SCH (07:30)
[2017-11-12] MEDS: HEPARIN SODIUM,PORCINE 5,000 UNIT/ML 1 ML VIAL SQ SCH ×2 (07:30→20:18)
[2017-11-12] MEDS: CLOBETASOL PROP 0.05% CR 15GM TOPICAL SCH ×2 (07:32→20:19)
[2017-11-12 08:09] LABS: HCT 40.1 % (39.0-53.0); HGB 13.2 gm/dL (13.0-17.5); MCH 30.5 pg (25.0-35.0); MCHC 32.9 g/dL (31.0-37.0); MCV 92.6 fL (80.0-100.0); Mean Platelet Volume 8.5; Platelet Count 194 k/uL (150-450); RBC 4.33 m/uL (4.30-5.90); RDW 14.4 % (11.5-15.5)
[2017-11-12 08:36] LABS: ALT 21 U/L (21-72); AST 16 U/L (17-59); Albumin 2.9 g/dL (3.5-5.0); Alkaline Phosphatase 94 U/L (38-126); Anion Gap 10 mmol/L; Blood Urea Nitrogen 6 mg/dL (9-20); Calcium 8.5 mg/dL (8.4-10.2); Carbon Dioxide 27 mmol/L (22-30); Chloride 108 mmol/L (98-107); Glucose 87 mg/dL (74-99); Potassium 3.6 mmol/L (3.5-5.1); Sodium 145 mmol/L (137-145); Total Bilirubin 0.4 mg/dL (0.2-1.3); Total Protein 5.6 g/dL (6.3-8.2)
[2017-11-12] MEDS ORDERED: MORPHINE ORAL SOLN 10 MG/5 ML CUP PO PRN (09:21)
--- NOTE | 2017-11-12 10:54 | P.PN ---
Subjective Progress Note Date: 11/12/17 Principal diagnosis: Abdominal pain nausea vomiting 57-year-old male admitted with intractable abdominal pain nausea vomiting with history of Ferris's procedure March 2017. NG tube removed yesterday. Presently this morning he feels much better. Nonbloody stool via ostomy. No nausea vomiting. Denies hematemesis hematochezia melena. Hemoglobin stable. Tolerating clear liquids. Objective - Vital Signs Vital signs: Vital Signs Temp 97.3 F L 11/12/17 06:40 Pulse 59 L 11/12/17 06:40 Resp 20 11/12/17 06:40 BP 130/78 11/12/17 06:40 Pulse Ox 96 11/12/17 06:40 Intake & Output 11/11/17 11/12/17 11/12/17 18:59 06:59 18:59 Intake Total 120 100 414 Output Total 450 Balance -330 100 414 Weight 79.5 kg 79.5 kg Intake: Oral 120 100 414 Output: Gastric Drainage 150 Stool 300 Other: Voiding Method Toilet # Voids 1 1 - Exam General appearance: The patient is alert, oriented, in no acute distress. HET: Head is normocephalic and atraumatic. Pupils are equal and reactive. Oropharynx is clear without lesions. Neck: Supple without lymphadenopathy. Trachea midline. Heart: S1 S2. Regular rate and rhythm. Lungs: No crackles or wheezes are heard. Abdomen: Soft, very mild tenderness to the midabdomen, nondistended with bowel sounds. Ostomy with brown stool. No peritoneal signs. No palpable organomegaly or masses. Extremities: Normal skin color and turgor. No cyanosis, rash, ulceration, clubbing, or edema. Radial and pedal pulses are 2/4 bilaterally. Neurological: No focal deficits. Strength and sensation are grossly intact. - Labs CBC & Chem 7: 11/12/17 07:36 11/12/17 07:36 Labs: Abnormal Lab Results - Last 24 Hours (Table) 11/12/17 Range/Units 07:36 Chloride 108 H (98-107) mmol/L BUN 6 L (9-20) mg/dL Creatinine 0.48 L (0.66-1.25) mg/dL AST 16 L (17-59) U/L Total Protein 5.6 L (6.3-8.2) g/dL Albumin 2.9 L (3.5-5.0) g/dL Assessment and Plan (1) Abdominal pain Narrative/Plan: 57-year-old male with a history of Ferris's procedure 2017 presents with intractable nausea vomiting abdominal pain with insertion of NG tube return of mixed bilious rust colored fluid. He will in stable at 13.6. CT reported no evidence of bowel obstruction intestinal wall thickening. Possible hemorrhagic cystitis. Possibility of NG tube irritation causing rust colored bilious appearance is possible however underlying peptic ulcer disease and gastritis cannot be excluded. Current Visit: Yes Status: Acute Code(s): R10.9 - UNSPECIFIED ABDOMINAL PAIN SNOMED Code(s): 95757229 (2) Status post Snehal procedure Current Visit: Yes Status: Acute Code(s): Z93.3 - COLOSTOMY STATUS SNOMED Code(s): 912857679 (3) Diverticulitis of colon with perforation Current Visit: No Status: Acute Code(s): K57.20 - DVTRCLI OF LG INT W PERFORATION AND ABSCESS W/O BLEEDING SNOMED Code(s): 34909979 Plan: 1. Advance diet. Inpatient endoscopic exams not planned at this time. No active GI bleeding. Hemoglobin stable. Abdominal pain improved. If diet tolerated discharge per medicine. 2. Continue GI prophylaxis. Assessment and plan a care discussed with Dr. Carreon
--- NOTE | 2017-11-12 11:58 | P.PN ---
Subjective Progress Note Date: 11/12/17 Principal diagnosis: Abdominal pain Patient doing well at this time. Denies abdominal pain. Tolerating liquid diet. Good ostomy function. No evidence of GI bleeding. White blood cell count and hemoglobin stable. He would like more to eat. Objective - Vital Signs Vital signs: Vital Signs Temp 97.3 F L 11/12/17 06:40 Pulse 59 L 11/12/17 06:40 Resp 20 11/12/17 06:40 BP 130/78 11/12/17 06:40 Pulse Ox 96 11/12/17 06:40 Intake & Output 11/11/17 11/12/17 11/12/17 18:59 06:59 18:59 Intake Total 120 100 414 Output Total 450 Balance -330 100 414 Weight 79.5 kg 79.5 kg Intake: Oral 120 100 414 Output: Gastric Drainage 150 Stool 300 Other: Voiding Method Toilet # Voids 1 1 - Exam Abdomen: Soft, nontender, nondistended - Labs CBC & Chem 7: 11/12/17 07:36 11/12/17 07:36 Labs: Abnormal Lab Results - Last 24 Hours (Table) 11/12/17 Range/Units 07:36 Chloride 108 H (98-107) mmol/L BUN 6 L (9-20) mg/dL Creatinine 0.48 L (0.66-1.25) mg/dL AST 16 L (17-59) U/L Total Protein 5.6 L (6.3-8.2) g/dL Albumin 2.9 L (3.5-5.0) g/dL Assessment and Plan (1) Abdominal pain Narrative/Plan: Patient's abdominal pain has resolved. Continue advancing diet. No surgical intervention planned. Current Visit: Yes Status: Acute Code(s): R10.9 - UNSPECIFIED ABDOMINAL PAIN SNOMED Code(s): 07808322
[2017-11-12] MEDS: hydrALAZINE HCL 50 MG TAB PO SCH (18:35)
[2017-11-12] MEDS: ATENOLOL 50 MG TAB PO SCH (18:35)
[2017-11-12] MEDS: clonazePAM 1 MG TAB PO SCH (20:17)
[2017-11-12] MEDS: DOXYCYCLINE 50 MG CAP PO SCH (20:17)
[2017-11-12] MEDS ORDERED: hydrALAZINE HCL 50 MG TAB PO SCH (21:00)
[2017-11-12] MEDS ORDERED: ATORVASTATIN 80 MG TAB PO SCH (21:00)
[2017-11-12] MEDS ORDERED: hydrOXYzine HCL 25 MG TAB PO SCH (21:00)
[2017-11-13 06:20] VITALS: BP 152/70; PULSE 45; RESP 14; TEMP 98.7
[2017-11-13] MEDS: SODIUM CHLORIDE 0.9% 1,000 ML IV SCH (06:20)
[2017-11-13] MEDS: hydrALAZINE HCL 50 MG TAB PO SCH (06:22)
[2017-11-13] MEDS: ATENOLOL 50 MG TAB PO SCH (07:51)
--- NOTE | 2017-11-13 08:03 | P.DS ---
Providers Date of admission: 11/11/17 12:48 Attending physician: Des Prince Consults: 11/10/17 14:20 Consult Physician Routine Consulting Provider: Cleveland Carreon Consult Reason/Comments: abdominal pain Do you want consulting provider notified?: Yes Consult Physician Urgent Consulting Provider: Ubaldo Rodriguez Consult Reason/Comments: mesenteric inflammation, abd pain Do you want consulting provider notified?: Yes Primary care physician: Des Prince - Discharge Diagnosis(es) (1) Morgellons disease Current Visit: Yes Status: Acute (2) Intractable abdominal pain Current Visit: Yes Status: Acute (3) Diverticulitis of colon with perforation Current Visit: No Status: Acute Hospital Course: This discharge summary 57-year-old white male essentially admitted for acute abdominal pain. Surgical consultation and computed tomography scan did not show acute element. The patient was stabilized with appropriate antibiotic treatment and is not tolerating diet. Hopefully we can revise his Snehal pouch stated, he will be discharged in stable condition to follow-up with me in about 5 days. Patient Condition at Discharge: Fair Plan - Discharge Summary Discharge Rx Participant: Yes New Discharge Prescriptions: New Heparin Sodium,Porcine [Heparin Sodium] 5,000 unit SQ Q12HR vial oxyCODONE HCL [OxyIR] 20 mg PO Q6H PRN 7 Days #28 tab PRN Reason: Pain Continue hydrALAZINE HCL 50 mg PO BID Clindamycin Gel [Clindamycin Phosphate] 1 applic TOPICAL BID hydrOXYzine HCL [Atarax] 25 mg PO HS Nitroglycerin Sl Tabs [Nitrostat] 0.4 mg SUBLINGUAL Q5M PRN PRN Reason: Chest Pain Furosemide [Lasix] 40 mg PO DAILY Atorvastatin [Lipitor] 80 mg PO HS clonazePAM [KlonoPIN] 1 mg PO BID Doxycycline Hyclate 100 mg PO BID Cetirizine HCl [Zyrtec] 10 mg PO DAILY Albuterol Inhaler [Ventolin Hfa Inhaler] 2 puff INHALATION RT-Q6H PRN PRN Reason: Shortness Of Breath oxyCODONE HCL 20 mg PO Q6HR Diclofenac Sodium [Voltaren Gel] 2 gram TOPICAL QID Halobetasol Propionate 1 applic TOPICAL BID Discontinued Atenolol [Tenormin] 100 mg PO DAILY Discharge Medication List Albuterol Inhaler [Ventolin Hfa Inhaler] 2 puff INHALATION RT-Q6H PRN 04/15/18 [ History] Atorvastatin [Lipitor] 80 mg PO HS 11/10/17 [History] Cetirizine HCl [Zyrtec] 10 mg PO DAILY 11/10/17 [History] Clindamycin Gel [Clindamycin Phosphate] 1 applic TOPICAL BID 11/10/17 [History] Diclofenac Sodium [Voltaren Gel] 2 gram TOPICAL QID 11/10/17 [History] Doxycycline Hyclate 100 mg PO BID 11/10/17 [History] Furosemide [Lasix] 40 mg PO DAILY 11/10/17 [History] Halobetasol Propionate 1 applic TOPICAL BID 11/10/17 [History] Nitroglycerin Sl Tabs [Nitrostat] 0.4 mg SUBLINGUAL Q5M PRN 11/10/17 [History] clonazePAM [KlonoPIN] 1 mg PO BID 11/10/17 [History] hydrALAZINE HCL 50 mg PO BID 11/10/17 [History] hydrOXYzine HCL [Atarax] 25 mg PO HS 11/10/17 [History] oxyCODONE HCL 20 mg PO Q6HR 11/10/17 [History] Heparin Sodium,Porcine [Heparin Sodium] 5,000 unit SQ Q12HR vial 11/13/17 [Rx] oxyCODONE HCL [OxyIR] 20 mg PO Q6H PRN 7 Days #28 tab 11/13/17 [Rx] Follow up Appointment(s)/Referral(s): Des Prince MD [Primary Care Provider] - 1-2 days Patient Instructions/Handouts: Abdominal Pain (ED)
[2017-11-13] MEDS: LIDOCAINE 5% PATCH TOPICAL SCH (08:20)
[2017-11-13] MEDS: DOXYCYCLINE 50 MG CAP PO SCH (08:21)
[2017-11-13] MEDS: PANTOPRAZOLE 40 MG/10 ML VIAL IVP SCH (08:21)
[2017-11-13] MEDS: HEPARIN SODIUM,PORCINE 5,000 UNIT/ML 1 ML VIAL SQ SCH (08:21)
[2017-11-13] MEDS: clonazePAM 1 MG TAB PO SCH (08:24)
[2017-11-13] MEDS: CLOBETASOL PROP 0.05% CR 15GM TOPICAL SCH (08:25)
[2017-11-13] MEDS ORDERED: LORATADINE 10 MG TAB PO SCH (09:00)
[2017-11-13] MEDS ORDERED: FUROSEMIDE 40 MG TAB PO SCH (09:00)
== END 2017-11-13 09:21 | disposition home or self-care (01) | DRG 392 ==
LOC: EC 14:05 → 4MS4W 17:53 → OBSVTOIN 11-11 12:48
PROVIDERS: ADMIT Family Medicine; ATTEND Family Medicine
DX: R10.9 Unspecified abdominal pain (principal); N30.91 Cystitis, unspecified with hematuria; E86.0 Dehydration; F17.210 Nicotine dependence, cigarettes, uncomplicated; G89.29 Other chronic pain; I10 Essential (primary) hypertension; I25.10 Atherosclerotic heart disease of native coronary artery without angina pectoris; I25.2 Old myocardial infarction; J44.9 Chronic obstructive pulmonary disease, unspecified; K21.9 Gastro-esophageal reflux disease without esophagitis; M10.9 Gout, unspecified; M19.90 Unspecified osteoarthritis, unspecified site; M54.5 Low back pain; E66.9 Obesity, unspecified; R21 Rash and other nonspecific skin eruption; L98.8 Other specified disorders of the skin and subcutaneous tissue; Z68.27 Body mass index [BMI] 27.0-27.9, adult; Z93.3 Colostomy status; Z79.82 Long term (current) use of aspirin; Z79.899 Other long term (current) drug therapy; Z90.49 Acquired absence of other specified parts of digestive tract; Z95.5 Presence of coronary angioplasty implant and graft; Z98.42 Cataract extraction status, left eye; Z98.41 Cataract extraction status, right eye; Z96.1 Presence of intraocular lens; Z86.14 Personal history of Methicillin resistant Staphylococcus aureus infection; Z82.49 Family history of ischemic heart disease and other diseases of the circulatory system
CPT/HCPCS: 36415; 74177; 80048; 80053; 81001; 83605; 83690; 83735; 84484; 85025; 85027; 93005; 96361; 96365; 96375; 96376; 99285

== ENCOUNTER 2017-11-23 02:53 | Inpatient (IN) | payer MEDICARE, OTHER ==
[2017-11-23] MEDS ORDERED: RX INFO: IV CONTRAST WAS GIVEN 1 EACH MISC MISCELLANE PRN ×2 (03:01→03:53)
[2017-11-23] MEDS ORDERED: SODIUM CHLORIDE 0.9% 2,000 ML IV STA (03:01)
[2017-11-23] MEDS ORDERED: METOCLOPRAMIDE 5 MG/ML 2 ML VIAL IVP STA (03:01)
[2017-11-23] MEDS ORDERED: SODIUM CHLORIDE 0.9% 1,000 ML IV STA (03:01)
--- NOTE | 2017-11-23 03:04 | ED ---
Abdominal Pain HPI - General Chief Complaint: Abdominal Pain Stated Complaint: abd pain Time Seen by Provider: 11/23/17 02:55 Source: patient, family, EMS Mode of arrival: EMS Limitations: no limitations - History of Present Illness Initial Comments: 57 years old male presents with the abdominal pain, pain is around his colostomy according to the family and left the class. Because of diverticulitis him a his surgery was done and this hospital and along with the pain he has a nausea and vomiting family added that he threw up multiple times him a B has been working fine. He is also complaining about the back pain which is a chronic he denies any fall or any trauma. He denies any headaches no neck stiffness has chest pain though he has history of heart also complaining about down chest pain worse with a deep breaths. Denies any frequency urgency dysuria no symptoms of TIA or CVA - Related Data Home Medications Medication Instructions Recorded Confirmed Albuterol Inhaler [Ventolin Hfa 2 puff INHALATION RT-Q6H PRN 11/10/17 11/23/17 Inhaler] Atorvastatin [Lipitor] 80 mg PO HS 11/10/17 11/23/17 Cetirizine HCl [Zyrtec] 10 mg PO DAILY 11/10/17 11/23/17 Diclofenac Sodium [Voltaren Gel] 2 gram TOPICAL QID 11/10/17 11/23/17 Doxycycline Hyclate 100 mg PO BID 11/10/17 11/23/17 Furosemide [Lasix] 40 mg PO DAILY 11/10/17 11/23/17 Halobetasol Propionate 1 applic TOPICAL BID 11/10/17 11/23/17 Nitroglycerin Sl Tabs [Nitrostat] 0.4 mg SUBLINGUAL Q5M PRN 11/10/17 11/23/17 clonazePAM [KlonoPIN] 1 mg PO BID 11/10/17 11/23/17 hydrALAZINE HCL 50 mg PO BID 11/10/17 11/23/17 hydrOXYzine HCL [Atarax] 25 mg PO HS 11/10/17 11/23/17 Allergies Allergy/AdvReac Type Severity Reaction Status Date / Time No Known Allergies Allergy Verified 11/23/17 03:00 Review of Systems ROS Statement: Those systems with pertinent positive or pertinent negative responses have been documented in the HPI. ROS Other: All systems not noted in ROS Statement are negative. Past Medical History Past Medical History: Chest Pain / Angina, COPD, GERD/Reflux, Hypertension, Myocardial Infarction (PR), Osteoarthritis (OA) Additional Past Medical History / Comment(s): History of hepatitis A, chronic pain, gout, "kidneys shut down x2 when sick". Back pain Last Myocardial Infarction Date:: 1999 History of Any Multi-Drug Resistant Organisms: MRSA Date of last positivie culture/infection: 12/2015 MDRO Source:: THERESA LEG Past Surgical History: Bowel Resection, Heart Catheterization With Stent, Hernia Repair, Orthopedic Surgery Additional Past Surgical History / Comment(s): Shoulder surgery, hernia as a child, cataracts, pain clinic procedures, colostomy. Past Anesthesia/Blood Transfusion Reactions: No Reported Reaction Date of Last Stent Placement:: 1999 Past Psychological History: No Psychological Hx Reported Smoking Status: Current every day smoker Past Alcohol Use History: Occasional Past Drug Use History: None Reported - Past Family History Mother Family Medical History: Cancer, Myocardial Infarction (PR) Father Family Medical History: Myocardial Infarction (PR) Sister(s) Family Medical History: Cancer Additional Family Medical History / Comment(s): Sisters x2 General Exam - General Exam Comments Initial Comments: General: The patient is awake and looks tired and pale Skin: Skin is warm and dry, he has a multiple healed and healing scars on his both forearms. Eye: Pupils are equal, round and reactive to light, extra-ocular movements are intact; there is normal conjunctiva bilaterally. Ears, nose, mouth and throat: There are moist mucous membranes and no oral lesions. Neck: The neck is supple, there is no tenderness or JVD. Cardiovascular: There is a regular rate and rhythm Respiratory: To auscultation bilateral, crease breath sounds bilateral Gastrointestinal: noticed colostomy. Abdomen seems mildly distended, noticed marked tenderness around the stoma positive bowel sounds no guarding no rebounds Back: There is no tenderness to palpation in the midline. There is no obvious deformity. Musculoskeletal: Normal ROM, no tenderness, There is no pedal edema. There is no calf tenderness or swelling. No cords were appreciated. Neurological: CN II-XII intact, Cranial nerves III through XII are intact. There are no obvious motor or sensory deficits. Coordination appears grossly intact. Speech is normal. Psychiatric: Cooperative, appropriate mood & affect, normal judgment. Limitations: no limitations Course Vital Signs 11/23/17 11/23/17 02:54 04:00 Temperature 98.7 F Pulse Rate 69 78 Respiratory 20 18 Rate Blood Pressure 166/95 167/94 O2 Sat by Pulse 97 98 Oximetry And centering the patient's complaints patient was evaluated for any pulmonary embolism for any ischemic heart disease as well as abdominal pain etiology is, CBC is unremarkable compress metabolic panel is fine now CT chest to rule out any pulmonary embolism CT of the abdomen and pelvis showed some dilated small bowel loops consistent with ileus or early versus small bowel obstruction d- dimer was positive that's why we did the CT chest angiogram and a troponin is negative chest x-ray ruled out any pneumothorax or any infiltrates. These findings are discussed with the patient's daughter and patient was asleep at that time patient be admitted to Dr. Prince's service for consult Dr. Rodriguez Medical Decision Making - Lab Data Result diagrams: 11/23/17 02:01 11/23/17 02:01 Lab Results 11/23/17 11/23/17 11/23/17 Range/Units 02:01 02:01 02:01 WBC 6.1 (3.8-10.6) k/uL RBC 4.70 (4.30-5.90) m/uL Hgb 14.7 (13.0-17.5) gm/dL Hct 43.9 (39.0-53.0) % MCV 93.5 (80.0-100.0) fL MCH 31.2 (25.0-35.0) pg MCHC 33.4 (31.0-37.0) g/dL RDW 14.4 (11.5-15.5) % Plt Count 165 (150-450) k/uL Neutrophils % 73 % Lymphocytes % 19 % Monocytes % 6 % Eosinophils % 1 % Basophils % 0 % Neutrophils # 4.4 (1.3-7.7) k/uL Lymphocytes # 1.1 (1.0-4.8) k/uL Monocytes # 0.4 (0-1.0) k/uL Eosinophils # 0.1 (0-0.7) k/uL Basophils # 0.0 (0-0.2) k/uL D-Dimer (<0.60) mg/L FEU Sodium 143 (137-145) mmol/L Potassium 3.7 (3.5-5.1) mmol/L Chloride 108 H (98-107) mmol/L Carbon Dioxide 23 (22-30) mmol/L Anion Gap 12 mmol/L BUN 8 L (9-20) mg/dL Creatinine 0.70 (0.66-1.25) mg/dL Est GFR (CKD-EPI)AfAm >90 (>60 ml/min/1.73 sqM) Est GFR (CKD-EPI)NonAf >90 (>60 ml/min/1.73 sqM) Glucose 98 (74-99) mg/dL Plasma Lactic Acid Joce (0.7-2.0) mmol/L Calcium 8.5 (8.4-10.2) mg/dL Total Bilirubin 0.3 (0.2-1.3) mg/dL AST 18 (17-59) U/L ALT 23 (21-72) U/L Alkaline Phosphatase 96 (38-126) U/L Troponin I 0.014 (0.000-0.034) ng/mL C-Reactive Protein 32.1 H (<10.0) mg/L Total Protein 5.8 L (6.3-8.2) g/dL Albumin 3.1 L (3.5-5.0) g/dL Amylase <30 L (30-110) U/L Lipase 22 L (23-300) U/L 11/23/17 11/23/17 Range/Units 02:01 03:17 WBC (3.8-10.6) k/uL RBC (4.30-5.90) m/uL Hgb (13.0-17.5) gm/dL Hct (39.0-53.0) % MCV (80.0-100.0) fL MCH (25.0-35.0) pg MCHC (31.0-37.0) g/dL RDW (11.5-15.5) % Plt Count (150-450) k/uL Neutrophils % % Lymphocytes % % Monocytes % % Eosinophils % % Basophils % % Neutrophils # (1.3-7.7) k/uL Lymphocytes # (1.0-4.8) k/uL Monocytes # (0-1.0) k/uL Eosinophils # (0-0.7) k/uL Basophils # (0-0.2) k/uL D-Dimer 3.18 H (<0.60) mg/L FEU Sodium (137-145) mmol/L Potassium (3.5-5.1) mmol/L Chloride (98-107) mmol/L Carbon Dioxide (22-30) mmol/L Anion Gap mmol/L BUN (9-20) mg/dL Creatinine (0.66-1.25) mg/dL Est GFR (CKD-EPI)AfAm (>60 ml/min/1.73 sqM) Est GFR (CKD-EPI)NonAf (>60 ml/min/1.73 sqM) Glucose (74-99) mg/dL Plasma Lactic Acid Joce 1.5 (0.7-2.0) mmol/L Calcium (8.4-10.2) mg/dL Total Bilirubin (0.2-1.3) mg/dL AST (17-59) U/L ALT (21-72) U/L Alkaline Phosphatase (38-126) U/L Troponin I (0.000-0.034) ng/mL C-Reactive Protein (<10.0) mg/L Total Protein (6.3-8.2) g/dL Albumin (3.5-5.0) g/dL Amylase (30-110) U/L Lipase (23-300) U/L Disposition Clinical Impression: Ileus, Back pain, Chest pain, Pleuritic chest pain Disposition: ADMITTED IP TO THIS [facility] Condition: Good Referrals: Des Prince MD [Primary Care Provider] - 1-2 days
[2017-11-23] MEDS: MORPHINE SULFATE 4 MG/0.8 ML SYRINGE (INJ) IV STA ×2 (03:15→04:29)
[2017-11-23 03:18] LABS: Basophils % (A) 0 %; Eosinophils # (A) 0.1 k/uL (0-0.7); Eosinophils % (A) 1 %; HCT 43.9 % (39.0-53.0); HGB 14.7 gm/dL (13.0-17.5); Lymphocytes # (A) 1.1 k/uL (1.0-4.8); Lymphocytes % (A) 19 %; MCH 31.2 pg (25.0-35.0); MCHC 33.4 g/dL (31.0-37.0); MCV 93.5 fL (80.0-100.0); Mean Platelet Volume 8.4; Monocytes # (A) 0.4 k/uL (0-1.0); Monocytes % (A) 6 %; Neutrophils # (A) 4.4 k/uL (1.3-7.7); Neutrophils % (A) 73 %; Platelet Count 165 k/uL (150-450); RDW 14.4 % (11.5-15.5); WBC 6.1 k/uL (3.8-10.6)
[2017-11-23 03:27] LABS: ALT 23 U/L (21-72); AST 18 U/L (17-59); Albumin 3.1 g/dL (3.5-5.0); Alkaline Phosphatase 96 U/L (38-126); Amylase <30 U/L (30-110); Anion Gap 12 mmol/L; Blood Urea Nitrogen 8 mg/dL (9-20); C Reactive Protein 32.1 mg/L (<10.0); Calcium 8.5 mg/dL (8.4-10.2); Carbon Dioxide 23 mmol/L (22-30); Chloride 108 mmol/L (98-107); Glucose 98 mg/dL (74-99); Lipase 22 U/L (23-300); Potassium 3.7 mmol/L (3.5-5.1); Sodium 143 mmol/L (137-145); Total Bilirubin 0.3 mg/dL (0.2-1.3); Total Protein 5.8 g/dL (6.3-8.2)
--- NOTE | 2017-11-23 03:38 | XR ---
EXAMINATION TYPE: XR chest 2V DATE OF EXAM: 11/23/2017 COMPARISON: 10/17/2017 HISTORY: Chest pain TECHNIQUE: Frontal and lateral views of the chest are obtained. FINDINGS: Heart and mediastinum are normal. Lungs are clear. Costophrenic angles are clear. There is no evidence of pleural effusion. There is no heart failure. Bony thorax is intact. IMPRESSION: No active cardiopulmonary disease. No change.
--- NOTE | 2017-11-23 04:26 | CT ---
EXAMINATION TYPE: CT angio chest DATE OF EXAM: 11/23/2017 4:21 AM COMPARISON: 02/19/2017 HISTORY: R/O PE, Chest Pain CT DLP: 1943.60 mGycm Automated exposure control for dose reduction was used. CONTRAST: CTA scan of the thorax is performed with IV Contrast, patient injected with 100 mL of Isovue 370, pul monary embolism protocol. There are 3-D post processed images.. FINDINGS: The lungs are clear of consolidation. There is no evidence of a pulmonary mass. There is no pleural e ffusion. There is no pericardial effusion. Thoracic aorta is atheromatous. There is no evidence of aneurysm or dissection. I see no filling defe cts in the pulmonary arteries. There is no evidence of mediastinal or bronchial adenopathy. There are a few bronchial lymph nodes measure up to 1 cm. There is spurring in the thoracic spine. IMPRESSION: NO EVIDENCE OF PULMONARY EMBOLISM. NO ADVERSE CHANGE COMPARED TO OLD EXAM.
[2017-11-23] MEDS ORDERED: MORPHINE SULFATE 4 MG/0.8 ML SYRINGE (INJ) ONE (04:28)
--- NOTE | 2017-11-23 04:34 | CT ---
EXAMINATION TYPE: CT abdomen pelvis w con DATE OF EXAM: 11/23/2017 COMPARISON: 11/10/2017 HISTORY: Abd pain CT DLP: 1943.60 mGycm Automated exposure control for dose reduction was used. TECHNIQUE: Helical acquisition of images was performed from the lung bases through the pelvis. CONTRAST: Performed without Oral Contrast and with IV Contrast, patient injected with 100 mL of Isovue 370. FINDINGS: Lung bases are clear. There is no pleural effusion. Heart is probably enlarged. Liver spleen pancreas gallbladder appear normal. Bile ducts are not dilated. There is no adrenal mass. Kidneys show satisfactory contrast opacification. There is no hydronephrosi s. Ureters are not dilated. Abdominal aorta is atheromatous. There is no retroperitoneal adenopathy. There are multiple fluid-filled mildly distended loops of small bowel. These measure up to 3.2 cm. Th ere is a colostomy on the left side of the descending colon. There is a small amount of free fluid in the pelvis. The bladder distends smoothly. There are surgical clips in the pelvis. The terminal ileu m is not dilated. I do not see a transition point. I see no bony destructive process. Lumbar spine is intact. IMPRESSION: COMPARED TO LAST EXAM THERE IS A NEW SMALL AMOUNT OF FLUID IN THE PELVIS. THERE ARE MILDLY DILATED LO OPS OF SMALL BOWEL THAT COULD RELATE TO ILEUS OR PARTIAL MECHANICAL OBSTRUCTION. THIS IS A CHANGE COM PARED TO OLD EXAM. THERE IS A COLOSTOMY WITH A PARASTOMAL HERNIA THAT CONTAINS OMENTAL FAT. THIS IS U NCHANGED.
[2017-11-23] MEDS ORDERED: NALOXONE 0.4 MG/ML 1 ML VIAL IV PRN (05:05)
[2017-11-23] MEDS ORDERED: ONDANSETRON 4 MG/2 ML VIAL IVP PRN (05:05)
[2017-11-23] MEDS ORDERED: MORPHINE SULFATE 4 MG/0.8 ML SYRINGE (INJ) IV PRN (05:05)
[2017-11-23] MEDS ORDERED: ACETAMINOPHEN TAB 325 MG TAB PO PRN (05:05)
[2017-11-23] MEDS ORDERED: NITROGLYCERIN SL TABS 0.4 MG TAB SUBLINGUAL PRN (05:13)
[2017-11-23] MEDS ORDERED: ALBUTEROL INHALER 60 PUFF/8 GM INHALER INHALATION PRN (05:13)
[2017-11-23] MEDS: SODIUM CHLORIDE 0.9% 1,000 ML IV SCH ×3 (07:33→20:20)
[2017-11-23] MEDS ORDERED: FUROSEMIDE 40 MG TAB PO SCH (09:00)
--- NOTE | 2017-11-23 10:21 | P.GSCN ---
History of Present Illness Consult date: 11/23/17 Reason for Consult: Abdominal pain History of present illness: Patient known to our service. He was here in the hospital 2 weeks ago or so. At the time he apparently was having some abdominal discomfort that quickly resolved. He was mostly having back problems at that time. He comes back to the hospital now because of abdominal pain. He is also once again complaining of back pain. Some chest discomfort. CAT scan was performed which showed ileus pattern. Small amount of intra-abdominal fluid. The patient says his ostomy has been functioning but the stool was black in color. Denies taking iron. White blood cell count normal at 6.1. Hemoglobin stable. Review of Systems The patient denies any acute changes in vision or hearing, no dysphagia or odynophagia, no chest pain or shortness of breath, no dysuria or hematuria, no headache, no runny nose, no rectal bleeding, no unexplained weight loss Past Medical History Past Medical History: Chest Pain / Angina, COPD, GERD/Reflux, Hypertension, Myocardial Infarction (ID), Osteoarthritis (OA) Additional Past Medical History / Comment(s): History of hepatitis A, chronic pain, gout, "kidneys shut down x2 when sick". Back pain Last Myocardial Infarction Date:: 1999 History of Any Multi-Drug Resistant Organisms: MRSA Year Discovered:: 12/2015 MDRO Source:: THERESA LEG Past Surgical History: Bowel Resection, Heart Catheterization With Stent, Hernia Repair, Orthopedic Surgery Additional Past Surgical History / Comment(s): Shoulder surgery, hernia as a child, cataracts, pain clinic procedures, colostomy. Past Anesthesia/Blood Transfusion Reactions: No Reported Reaction Date of Last Stent Placement:: 1999 Past Psychological History: Anxiety Smoking Status: Current some day smoker Past Alcohol Use History: Occasional Additional Past Alcohol Use History / Comment(s): States he smokes 1/2 PPD since age 18. States he hasn't drank alcohol in over a month and his use is occasional. Past Drug Use History: None Reported - Past Family History Mother Family Medical History: Cancer, Myocardial Infarction (ID) Father Family Medical History: Myocardial Infarction (ID) Sister(s) Family Medical History: Cancer Additional Family Medical History / Comment(s): Sisters x2 Medications and Allergies Home Medications Medication Instructions Recorded Confirmed Type Albuterol Inhaler [Ventolin Hfa 2 puff INHALATION RT-Q6H PRN 11/10/17 11/23/17 History Inhaler] Atorvastatin [Lipitor] 80 mg PO HS 11/10/17 11/23/17 History Cetirizine HCl [Zyrtec] 10 mg PO DAILY 11/10/17 11/23/17 History Diclofenac Sodium [Voltaren Gel] 2 gram TOPICAL QID 11/10/17 11/23/17 History Doxycycline Hyclate 100 mg PO BID 11/10/17 11/23/17 History Furosemide [Lasix] 40 mg PO DAILY 11/10/17 11/23/17 History Halobetasol Propionate 1 applic TOPICAL BID 11/10/17 11/23/17 History Nitroglycerin Sl Tabs [Nitrostat] 0.4 mg SUBLINGUAL Q5M PRN 11/10/17 11/23/17 History clonazePAM [KlonoPIN] 1 mg PO BID 11/10/17 11/23/17 History hydrALAZINE HCL 50 mg PO BID 11/10/17 11/23/17 History hydrOXYzine HCL [Atarax] 25 mg PO HS 11/10/17 11/23/17 History Allergies Allergy/AdvReac Type Severity Reaction Status Date / Time No Known Allergies Allergy Verified 11/23/17 03:00 Surgical - Exam Vital Signs Temp Pulse Resp BP Pulse Ox 98.7 F 69 20 166/95 97 11/23/17 02:54 11/23/17 02:54 11/23/17 02:54 11/23/17 02:54 11/23/17 02:54 Physical exam: General: Well-developed, well-nourished HEENT: Normocephalic, sclerae nonicteric Abdomen: Minimal tenderness, nondistended, ostomy noted Extremities: No edema Neuro: Alert and oriented Results - Labs 11/23/17 02:01 11/23/17 02:01 Abnormal Lab Results - Last 24 Hours (Table) 11/23/17 11/23/17 Range/Units 02:01 02:01 D-Dimer 3.18 H (<0.60) mg/L FEU Chloride 108 H (98-107) mmol/L BUN 8 L (9-20) mg/dL C-Reactive Protein 32.1 H (<10.0) mg/L Total Protein 5.8 L (6.3-8.2) g/dL Albumin 3.1 L (3.5-5.0) g/dL Amylase <30 L (30-110) U/L Lipase 22 L (23-300) U/L Diabetes panel 11/23/17 Range/Units 02:01 Sodium 143 (137-145) mmol/L Potassium 3.7 (3.5-5.1) mmol/L Chloride 108 H (98-107) mmol/L Carbon Dioxide 23 (22-30) mmol/L BUN 8 L (9-20) mg/dL Creatinine 0.70 (0.66-1.25) mg/dL Glucose 98 (74-99) mg/dL Calcium 8.5 (8.4-10.2) mg/dL AST 18 (17-59) U/L ALT 23 (21-72) U/L Alkaline Phosphatase 96 (38-126) U/L Total Protein 5.8 L (6.3-8.2) g/dL Albumin 3.1 L (3.5-5.0) g/dL Calcium panel 11/23/17 Range/Units 02:01 Calcium 8.5 (8.4-10.2) mg/dL Albumin 3.1 L (3.5-5.0) g/dL Pituitary panel 11/23/17 Range/Units 02:01 Sodium 143 (137-145) mmol/L Potassium 3.7 (3.5-5.1) mmol/L Chloride 108 H (98-107) mmol/L Carbon Dioxide 23 (22-30) mmol/L BUN 8 L (9-20) mg/dL Creatinine 0.70 (0.66-1.25) mg/dL Glucose 98 (74-99) mg/dL Calcium 8.5 (8.4-10.2) mg/dL Adrenal panel 11/23/17 Range/Units 02:01 Sodium 143 (137-145) mmol/L Potassium 3.7 (3.5-5.1) mmol/L Chloride 108 H (98-107) mmol/L Carbon Dioxide 23 (22-30) mmol/L BUN 8 L (9-20) mg/dL Creatinine 0.70 (0.66-1.25) mg/dL Glucose 98 (74-99) mg/dL Calcium 8.5 (8.4-10.2) mg/dL Total Bilirubin 0.3 (0.2-1.3) mg/dL AST 18 (17-59) U/L ALT 23 (21-72) U/L Alkaline Phosphatase 96 (38-126) U/L Total Protein 5.8 L (6.3-8.2) g/dL Albumin 3.1 L (3.5-5.0) g/dL Assessment and Plan (1) Abdominal pain Narrative/Plan: Patient's CAT scan was reviewed. No definite obstruction seen. The patient is a history of chronic pain. Will resume diet. Check stool for occult blood. We 'll follow with you. Current Visit: No Status: Acute Code(s): R10.9 - UNSPECIFIED ABDOMINAL PAIN SNOMED Code(s): 30100567
[2017-11-23] MEDS: NICOTINE 21MG/24HR PATCH TRANSDERM SCH (10:40)
[2017-11-23 10:53] LABS: Appearance,Urine Clear (Clear); Bilirubin,Urine Negative (Negative); Blood,Urine Negative (Negative); Color,Urine Yellow; Glucose,Urine (UA) Negative (Negative); Ketones,Urine Negative (Negative); Leukocyte Esterase,Urine Negative (Negative); Nitrite,Urine Negative (Negative); PH, Urine 5.5 (5.0-8.0); Protein,Urine Negative (Negative); Urobilinogen,Urine <2.0 mg/dL (<2.0)
[2017-11-23] MEDS: MORPHINE SULFATE 4 MG/0.8 ML SYRINGE (INJ) IV PRN ×3 (11:18→20:19)
[2017-11-23] MEDS: clonazePAM 1 MG TAB PO SCH ×2 (11:19→20:25)
[2017-11-23] MEDS: DOXYCYCLINE MONOHYDRATE 100 MG CAPSULE PO SCH ×2 (11:20→20:25)
[2017-11-23] MEDS: hydrALAZINE HCL 50 MG TAB PO SCH ×2 (11:20→20:25)
[2017-11-23] MEDS: CLOBETASOL PROP 0.05% CR 15GM TOPICAL SCH ×2 (11:22→20:25)
[2017-11-23] MEDS: LORATADINE 10 MG TAB PO SCH (11:23)
[2017-11-23] MEDS: DICLOFENAC SODIUM GEL 100 GM TUBE TOPICAL SCH ×4 (11:29→20:26)
--- NOTE | 2017-11-23 12:23 | P.HPIM ---
History of Present Illness Covering for Dr. Prince over the weekends, Dr. Prince will resume the care of the patient on Saturday This is a pleasant 57 years old male with past medical history of CAD, COPD, GERD, hypertension, chronic pain, gout, MRSA infection, status post cardiac cath , chronic back pain for 10 years as per patient, status post colostomy secondary to perforated sigmoid colon on 03/2017 He was in the hospital about 2 weeks ago with abdominal pain around the colostomy back associated with nausea vomiting at that time he has been evaluated by surgery and GI team and treated conservatively with relieving of constipation and advising diet This time patient presents with the same pain he says 10 out of 10 are colostomy bag associated with constipation, nausea and vomiting Also patient complains from left side upper chest pain of 3 days' duration radiating to the left arm nonspecific about 8/10 in severity in the emergency room his troponins were slightly elevated at 0.038, he has negative CT PA for high d-dimer Review of Systems 14 point systemic review were negative except what mentioned in HPI Past Medical History Past Medical History: Chest Pain / Angina, COPD, GERD/Reflux, Hypertension, Myocardial Infarction (SC), Osteoarthritis (OA) Additional Past Medical History / Comment(s): History of hepatitis A, chronic pain, gout, "kidneys shut down x2 when sick". Back pain Last Myocardial Infarction Date:: 1999 History of Any Multi-Drug Resistant Organisms: MRSA Date of last positivie culture/infection: 12/2015 MDRO Source:: [facility] Past Surgical History: Bowel Resection, Heart Catheterization With Stent, Hernia Repair, Orthopedic Surgery Additional Past Surgical History / Comment(s): Shoulder surgery, hernia as a child, cataracts, pain clinic procedures, colostomy. Past Anesthesia/Blood Transfusion Reactions: No Reported Reaction Date of Last Stent Placement:: 1999 Past Psychological History: Anxiety Smoking Status: Current some day smoker Past Alcohol Use History: Occasional Additional Past Alcohol Use History / Comment(s): States he smokes 1/2 PPD since age 18. States he hasn't drank alcohol in over a month and his use is occasional. Past Drug Use History: None Reported - Past Family History Mother Family Medical History: Cancer, Myocardial Infarction (SC) Father Family Medical History: Myocardial Infarction (SC) Sister(s) Family Medical History: Cancer Additional Family Medical History / Comment(s): Sisters x2 Medications and Allergies Home Medications Medication Instructions Recorded Confirmed Type Albuterol Inhaler [Ventolin Hfa 2 puff INHALATION RT-Q6H PRN 11/10/17 11/23/17 History Inhaler] Atorvastatin [Lipitor] 80 mg PO HS 11/10/17 11/23/17 History Cetirizine HCl [Zyrtec] 10 mg PO DAILY 11/10/17 11/23/17 History Diclofenac Sodium [Voltaren Gel] 2 gram TOPICAL QID 11/10/17 11/23/17 History Doxycycline Hyclate 100 mg PO BID 11/10/17 11/23/17 History Furosemide [Lasix] 40 mg PO DAILY 11/10/17 11/23/17 History Halobetasol Propionate 1 applic TOPICAL BID 11/10/17 11/23/17 History Nitroglycerin Sl Tabs [Nitrostat] 0.4 mg SUBLINGUAL Q5M PRN 11/10/17 11/23/17 History clonazePAM [KlonoPIN] 1 mg PO BID 11/10/17 11/23/17 History hydrALAZINE HCL 50 mg PO BID 11/10/17 11/23/17 History hydrOXYzine HCL [Atarax] 25 mg PO HS 11/10/17 11/23/17 History Allergies Allergy/AdvReac Type Severity Reaction Status Date / Time No Known Allergies Allergy Verified 11/23/17 11:04 Physical Exam Vitals: Vital Signs Temp Pulse Pulse Resp BP BP Pulse Ox 11/23/17 10:46 98.7 F 71 20 138/81 96 11/23/17 06:00 98.9 F 67 18 149/92 100 11/23/17 05:00 98.6 F 54 L 20 174/88 100 11/23/17 04:00 78 18 167/94 98 11/23/17 02:54 98.7 F 69 20 166/95 97 Intake and Output 11/22/17 11/23/17 11/23/17 22:59 06:59 14:59 Other: Weight 83.915 kg Results CBC & Chem 7: 11/23/17 02:01 11/23/17 02:01 Labs: Abnormal Lab Results - Last 24 Hours (Table) 11/23/17 11/23/17 11/23/17 Range/Units 02:01 02:01 08:40 D-Dimer 3.18 H (<0.60) mg/L FEU Chloride 108 H (98-107) mmol/L BUN 8 L (9-20) mg/dL Troponin I 0.038 H* (0.000-0.034) ng/mL C-Reactive Protein 32.1 H (<10.0) mg/L Total Protein 5.8 L (6.3-8.2) g/dL Albumin 3.1 L (3.5-5.0) g/dL Amylase <30 L (30-110) U/L Lipase 22 L (23-300) U/L Ur Specific [place] (1.001-1.035) 11/23/17 Range/Units 10:40 D-Dimer (<0.60) mg/L FEU Chloride (98-107) mmol/L BUN (9-20) mg/dL Troponin I (0.000-0.034) ng/mL C-Reactive Protein (<10.0) mg/L Total Protein (6.3-8.2) g/dL Albumin (3.5-5.0) g/dL Amylase (30-110) U/L Lipase (23-300) U/L Ur Specific [place] 1.050 H (1.001-1.035) Thrombosis Risk Factor Assmnt - Choose All That Apply Any of the Below Risk Factors Present?: Yes Each Factor Represents 1 point: Age 41-60 years Other Risk Factors: No Other congenital or acquired thrombophilia - If yes, enter type in comment: No Thrombosis Risk Factor Assessment Total Risk Factor Score: 1 Thrombosis Risk Factor Assessment Level: Low Risk Assessment and Plan Assessment: Chest pain, rule out cardiac causes Ileus versus mechanical intestinal obstruction, partial Hypertension Gerd COPD Plan: Patients with both chest pain and abdominal pain, still in distress Also patient with chronic constipation, CT of the abdomen and pelvis is noted and there is ileus versus partial mechanical obstruction Surgical consultation is appreciated continue with conservative treatment and checked for FOBT. GI consult Mildly elevated troponins, and review of history of CAD, bradycardia, consult cardiology Continue with IV hydration, nothing by mouth, and pain management
[2017-11-23] MEDS: hydrOXYzine HCL 25 MG TAB PO SCH (20:25)
[2017-11-23] MEDS: ATORVASTATIN 80 MG TAB PO SCH (20:25)
--- NOTE | 2017-11-23 20:32 | XR ---
EXAMINATION TYPE: XR KUB DATE OF EXAM: 11/23/2017 CLINICAL DATA: 57-year-old male with abdominal pain, PHH COMPARISON: 04/21/[address] same day FINDINGS: Supine imaging limited for assessment of free air. There are dilated small bowel loops measuring up t o 3.7 cm. Small bowel loops measure up to 2.8 cm on coronal series of CT the same day. However, colon ic air is present in the right upper abdomen. Left lower quadrant sigmoid colostomy. IMPRESSION: Continued distention of multiple small bowel loops. Small bowel caliber is 3.7 cm versus 2.[address] earlier today. Colonic air remains. Consider slight worsening small bowel ileus. Continued follow-up recommended to exclude developing bowel obstruction.
[2017-11-23] MEDS ORDERED: ACETAMINOPHEN IV (For NPO) 1,000 MG in EMPTY BAG 1 BAG IVPB STA (22:34)
[2017-11-23 22:49] LABS: Basophils % (A) 0 %; Eosinophils % (A) 1 %; HCT 43.2 % (39.0-53.0); HGB 14.1 gm/dL (13.0-17.5); Lymphocytes # (A) 1.4 k/uL (1.0-4.8); Lymphocytes % (A) 21 %; MCH 30.3 pg (25.0-35.0); MCHC 32.6 g/dL (31.0-37.0); MCV 93.2 fL (80.0-100.0); Mean Platelet Volume 9.1; Monocytes # (A) 0.2 k/uL (0-1.0); Monocytes % (A) 4 %; Neutrophils # (A) 4.9 k/uL (1.3-7.7); Neutrophils % (A) 73 %; Platelet Count 128 k/uL (150-450); RBC 4.64 m/uL (4.30-5.90); RDW 14.4 % (11.5-15.5); WBC 6.6 k/uL (3.8-10.6)
[2017-11-23 22:57] LABS: Anion Gap 10 mmol/L; Blood Urea Nitrogen 6 mg/dL (9-20); Calcium 8.1 mg/dL (8.4-10.2); Carbon Dioxide 23 mmol/L (22-30); Chloride 107 mmol/L (98-107); Glucose 81 mg/dL (74-99); Potassium 3.5 mmol/L (3.5-5.1); Sodium 140 mmol/L (137-145)
[2017-11-23] MEDS: PIPERACILLIN-TAZOBACTAM 3.375 GM in DEXTROSE/WATER 1 50ML.BAG IVPB SCH (23:24)
[2017-11-24 00:13] LABS: Appearance,Urine Clear (Clear); Bilirubin,Urine Negative (Negative); Blood,Urine Negative (Negative); Color,Urine Yellow; Glucose,Urine (UA) Negative (Negative); Ketones,Urine Negative (Negative); Leukocyte Esterase,Urine Negative (Negative); Nitrite,Urine Negative (Negative); PH, Urine 5.5 (5.0-8.0); Protein,Urine Negative (Negative); Specific Gravity,Urine 1.016 (1.001-1.035); Urobilinogen,Urine <2.0 mg/dL (<2.0)
[2017-11-24] MEDS: MORPHINE SULFATE 4 MG/0.8 ML SYRINGE (INJ) IV PRN ×7 (01:39→22:20)
[2017-11-24] MEDS: SODIUM CHLORIDE 0.9% 1,000 ML IV SCH ×3 (04:42→21:23)
[2017-11-24] MEDS: PIPERACILLIN-TAZOBACTAM 3.375 GM in DEXTROSE/WATER 1 50ML.BAG IVPB SCH ×3 (08:03→23:10)
[2017-11-24] MEDS ORDERED: ACETAMINOPHEN SUPPOSITORY 650 MG SUPP RECTAL PRN (08:29)
[2017-11-24 08:47] LABS: ALT 23 U/L (21-72); AST 20 U/L (17-59); Albumin 2.4 g/dL (3.5-5.0); Alkaline Phosphatase 80 U/L (38-126); Anion Gap 8 mmol/L; Blood Urea Nitrogen 6 mg/dL (9-20); Calcium 7.6 mg/dL (8.4-10.2); Carbon Dioxide 24 mmol/L (22-30); Chloride 105 mmol/L (98-107); Glucose 83 mg/dL (74-99); Potassium 3.3 mmol/L (3.5-5.1); Sodium 137 mmol/L (137-145); Total Bilirubin 0.3 mg/dL (0.2-1.3); Total Protein 4.9 g/dL (6.3-8.2)
[2017-11-24 08:50] LABS: HCT 41.1 % (39.0-53.0); MCH 31.2 pg (25.0-35.0); MCV 91.8 fL (80.0-100.0); Platelet Count 123 k/uL (150-450); RBC 4.48 m/uL (4.30-5.90); RDW 14.5 % (11.5-15.5); WBC 4.4 k/uL (3.8-10.6)
[2017-11-24 08:51] LABS: Basophils % (A) 1 %; Eosinophils % (A) 1 %; Lymphocytes # (A) 1.2 k/uL (1.0-4.8); Lymphocytes % (A) 27 %; Monocytes # (A) 0.2 k/uL (0-1.0); Monocytes % (A) 5 %; Neutrophils # (A) 2.9 k/uL (1.3-7.7); Neutrophils % (A) 65 %
[2017-11-24 09:20] LABS: Toxic Granulation Present; Toxic Vacuolation Present
[2017-11-24] MEDS ORDERED: Potassium Replacement Protocol 1 EACH MISC MISCELLANE PRN (09:35)
[2017-11-24] MEDS: NICOTINE 21MG/24HR PATCH TRANSDERM SCH (10:46)
--- NOTE | 2017-11-24 11:06 | P.PN ---
Subjective Progress Note Date: 11/24/17 Principal diagnosis: PSBO Patient had a high fever last night of 103. White blood cell count remains normal however. Patient had nasogastric tube placed after an abdominal x-ray showed persistent bowel dilation. He does feel somewhat better today. He admits to pain in the rectal region and also around his colostomy. I reviewed his initial CAT scan once again. There does appear to be some inflammatory changes in the distal aspect of the colon just beneath the ostomy possibly on the basis of localized colitis or diverticulitis. This may be the source of recent fevers. He was started on antibiotics yesterday evening. Objective - Vital Signs Vital signs: Vital Signs Temp 96.6 F L 11/24/17 10:55 Pulse 81 11/24/17 05:25 Resp 22 11/24/17 05:25 BP 179/86 11/24/17 05:25 Pulse Ox 98 11/24/17 05:25 Intake & Output 11/23/17 11/24/17 11/24/17 18:59 06:59 18:59 Output Total 1600 500 Balance -1600 -500 Weight 83.915 kg Output: Gastric Drainage 500 Urine 1600 Uretheral (Hilario) 1000 Other: # Voids 500 0 # Bowel Movements 0 - Exam Abdomen: Soft, nondistended, mild tenderness around the ostomy site without significant induration or erythema Perirectal evaluation reveals no evidence of perianal abscess. - Labs CBC & Chem 7: 11/24/17 08:10 11/24/17 08:10 Labs: Abnormal Lab Results - Last 24 Hours (Table) 11/23/17 11/23/17 11/23/17 Range/Units 10:40 13:48 22:35 Plt Count 128 L (150-450) k/uL Potassium (3.5-5.1) mmol/L BUN (9-20) mg/dL Creatinine (0.66-1.25) mg/dL Plasma Lactic Acid Joce (0.7-2.0) mmol/L Calcium (8.4-10.2) mg/dL Troponin I 0.042 H* (0.000-0.034) ng/mL Total Protein (6.3-8.2) g/dL Albumin (3.5-5.0) g/dL Ur Specific [place] 1.050 H (1.001-1.035) 11/23/17 11/24/17 11/24/17 Range/Units 22:35 08:10 08:10 Plt Count 123 L (150-450) k/uL Potassium 3.3 L (3.5-5.1) mmol/L BUN 6 L 6 L (9-20) mg/dL Creatinine 0.60 L 0.50 L (0.66-1.25) mg/dL Plasma Lactic Acid Joce (0.7-2.0) mmol/L Calcium 8.1 L 7.6 L (8.4-10.2) mg/dL Troponin I (0.000-0.034) ng/mL Total Protein 4.9 L (6.3-8.2) g/dL Albumin 2.4 L (3.5-5.0) g/dL Ur Specific [place] (1.001-1.035) 11/24/17 Range/Units 08:10 Plt Count (150-450) k/uL Potassium (3.5-5.1) mmol/L BUN (9-20) mg/dL Creatinine (0.66-1.25) mg/dL Plasma Lactic Acid Joce 0.6 L (0.7-2.0) mmol/L Calcium (8.4-10.2) mg/dL Troponin I (0.000-0.034) ng/mL Total Protein (6.3-8.2) g/dL Albumin (3.5-5.0) g/dL Ur Specific [place] (1.001-1.035) Microbiology - Last 24 Hours (Table) 11/23/17 03:17 Blood Culture - Preliminary Blood No Growth after 24 hours 11/23/17 10:40 Urine Culture - Preliminary Urine,Voided Assessment and Plan (1) Abdominal pain Narrative/Plan: Patient with febrile illness and CAT scan findings as described. Continue antibiotics. Keep nasogastric tube to suction although I still doubt significant bowel obstruction at this point. Likely ileus because of the inflammatory changes seen at the ostomy site. We'll follow closely. Current Visit: No Status: Acute Code(s): R10.9 - UNSPECIFIED ABDOMINAL PAIN SNOMED Code(s): 61997627
[2017-11-24] MEDS: POTASSIUM CHLORIDE 10 MEQ in WATER FOR INJECTION 1 100ML.BAG IVPB SCH ×2 (11:07→13:16)
[2017-11-24] MEDS: LORATADINE 10 MG TAB PO SCH (11:15)
[2017-11-24] MEDS: hydrALAZINE HCL 50 MG TAB PO SCH ×2 (11:15→20:50)
[2017-11-24] MEDS: DOXYCYCLINE MONOHYDRATE 100 MG CAPSULE PO SCH ×2 (11:15→20:50)
[2017-11-24] MEDS: clonazePAM 1 MG TAB PO SCH ×2 (11:15→20:50)
[2017-11-24] MEDS: DICLOFENAC SODIUM GEL 100 GM TUBE TOPICAL SCH ×4 (11:16→21:19)
[2017-11-24] MEDS: CLOBETASOL PROP 0.05% CR 15GM TOPICAL SCH ×2 (11:16→21:18)
--- NOTE | 2017-11-24 11:16 | CONS ---
CONSULTATION DATE OF SERVICE: 11/24/2017. REASON FOR CONSULTATION: Abdominal pain. HISTORY OF PRESENT ILLNESS: The patient is a 57-year-old pleasant white male admitted to the hospital with abdominal pain associated with nausea and vomiting for the last 2 to 3 days duration. He was in the hospital 2 weeks ago for the same symptoms, which resolved in a couple of days, and he was discharged home. He has history of perforated sigmoid colon in March 2017, at which time he underwent colostomy by Dr. Rodriguez. In the ER, he had a CT of the abdomen pelvis done that showed dilated small bowel loops suspicious for ileus. He had an NG tube placed and Dr. Rodriguez is following the patient closely. As per the nursing staff, he did not have any output from the colostomy bag in the last 24 hours. NG tube has been draining approximately 600 mL of bilious material. The patient still complains of diffuse abdominal pain. He does not feel well. No fevers, chills, night sweats. Complains of rash throughout the body. PAST MEDICAL HISTORY: GERD, hypertension, coronary artery disease status post HI, degenerative joint disease, chronic back pain. PAST SURGICAL HISTORY: Sigmoid colon resection with colostomy in March of 2017, hernia repair, shoulder surgery, bilateral cataract surgery. MEDICATIONS: At home include Lipitor, Zyrtec, Voltaren, Lasix, Nitrostat, Klonopin, Atarax, Ventolin. ALLERGIES: None. SOCIAL HISTORY: Chronic smoker. Occasionally drinks alcohol. FAMILY HISTORY: Mother had HI. Father had some kind of a cancer. REVIEW OF SYSTEMS: Cardiopulmonary: No chest pain, shortness of breath. : No dysuria or hematuria. Musculoskeletal: Unremarkable. Skin: Unremarkable. Endocrine: Unremarkable. Psychiatric: Unremarkable. Constitutional: Does not feel well. Weight loss of 10 pound. PHYSICAL EXAMINATION: He appears comfortable, mild distress because of the pain. VITAL SIGNS: Blood pressure of 151/68, pulse is 86, temperature 100.2. HEENT: Unremarkable. Conjunctivae pink. Sclerae anicteric. Oral cavity no lesions. NECK: No JVD or lymph node enlargement. CHEST: Clear to auscultation. HEART: Regular rate and rhythm rate and rhythm. ABDOMEN: Soft. Colostomy bag in place, which is empty. Mild diffuse tenderness. No rebound or rigidity. EXTREMITIES: No edema. SKIN: Rash throughout the abdomen, scabbing noted in some areas. EXTREMITIES: No pedal edema. NEUROLOGIC: Alert and oriented x3. No focal deficits. LABS: From today, WBC 4.4, hemoglobin 14, platelets 123. BUN and creatinine normal. Basic metabolic panel is within normal limits. ALT, AST, T-bilirubin and alkaline phosphatase are normal. IMPRESSION: The patient was admitted to hospital with abdominal pain, nausea, vomiting for the last [address] scan of the abdomen showed dilated small bowel loops suspicious for ileus versus small bowel versus small bowel obstruction. The patient has an NG tube in place, draining about 600 mL of bilious material. This morning he had abdominal x-rays done which showed worsening of the dilation of the small bowel loops. Also has no output from the colostomy bag, making it possible that we are dealing with a small bowel obstruction at this time. RECOMMENDATIONS: 1. Continue with NG tube suction. 2. Dr. Rodriguez is following the patient closely. 3. Keep him n.p.o. 4. IV Protonix. 5. We will follow the patient closely during his hospital stay. Thank you for this consultation. MMODL / IJN: [id number] /
--- NOTE | 2017-11-24 13:02 | XR ---
EXAMINATION TYPE: XR abdomen 2V , 3 VIEWS DATE OF EXAM ORDERED: 11/24/2017 HISTORY: ABD pain. COMPARISON: Previous study dated 11/23/2017. FINDINGS: The lung bases are clear. Within the abdomen, NG tube has been passed. There has been resolution of the dilated small bowel. Th ere remains some colonic gas. No unusual calcifications are seen. IMPRESSION: RESOLUTION OF THE PATIENT'S SMALL BOWEL ILEUS.
--- NOTE | 2017-11-24 13:43 | P.PN ---
Subjective Patient is seen and examined by me at bedside Patient spiked a fever yesterday, is currently started on Zosyn, no more fever Patient is not in distress today is total complaining of form pain around colostomy opening NG tube is in place and there is more than 600 mL of brown fluids in the container Patient's once his pain medication to be increased Objective - Vital Signs Vital signs: Vital Signs Temp 96.6 F L 11/24/17 10:55 Pulse 81 11/24/17 05:25 Resp 22 11/24/17 05:25 BP 179/86 11/24/17 05:25 Pulse Ox 98 11/24/17 05:25 Intake & Output 11/23/17 11/24/17 11/24/17 18:59 06:59 18:59 Output Total 1600 500 Balance -1600 -500 Weight 83.915 kg Output: Gastric Drainage 500 Urine 1600 Uretheral (Hilario) 1000 Other: # Voids 500 0 # Bowel Movements 0 - Exam Constitutional: No acute distress, conversant, pleasant Eyes: Anicteric sclerae, moist conjunctiva, no lid-lag PERRLA ENMT: NC/AT Oropharynx clear, no erythema, exudates Neck: Supple, FROM, no masses, or JVD No carotid bruits No thyromegaly Lungs: Clear to auscultation Clear to percussion Normal respiratory effort, no accessory muscle use Cardiovascular: Heart regular in rate and rhythm, No murmurs, gallops, or rubs No peripheral edema Abdominal: Soft no guarding, rebound or rigidity Abdomen moving with respiration Normoactive bowel sounds No hepatomegaly, No splenomegaly - Tenderness around the colostomy opening, NG tube into place with adrenaline fluids in container No palpable mass No abdominal wall hernia noted Skin: Normal temperature, tone, texture, turgor No induration No subcutaneous nodules No rash, lesions No ulcers Extremities: No digital cyanosis No clubbing Pedal pulses intact and symmetrical Radial pulses intact and symmetrical Normal gait and station No calf tenderness Psychiatric: Alert and oriented to person, place and time Appropriate affect Intact judgement Neuro: Muscles Strength 5/5 in all 4 extremities Sensation to light touch grossly present throughout Cranial nerves II-XII grossly intact No focal sensory deficits - Labs CBC & Chem 7: 11/24/17 08:10 11/24/17 08:10 Labs: Abnormal Lab Results - Last 24 Hours (Table) 11/23/17 11/23/17 11/23/17 Range/Units 13:48 22:35 22:35 Plt Count 128 L (150-450) k/uL Potassium (3.5-5.1) mmol/L BUN 6 L (9-20) mg/dL Creatinine 0.60 L (0.66-1.25) mg/dL Plasma Lactic Acid Joce (0.7-2.0) mmol/L Calcium 8.1 L (8.4-10.2) mg/dL Troponin I 0.042 H* (0.000-0.034) ng/mL Total Protein (6.3-8.2) g/dL Albumin (3.5-5.0) g/dL 11/24/17 11/24/17 11/24/17 Range/Units 08:10 08:10 08:10 Plt Count 123 L (150-450) k/uL Potassium 3.3 L (3.5-5.1) mmol/L BUN 6 L (9-20) mg/dL Creatinine 0.50 L (0.66-1.25) mg/dL Plasma Lactic Acid Joce 0.6 L (0.7-2.0) mmol/L Calcium 7.6 L (8.4-10.2) mg/dL Troponin I (0.000-0.034) ng/mL Total Protein 4.9 L (6.3-8.2) g/dL Albumin 2.4 L (3.5-5.0) g/dL Microbiology - Last 24 Hours (Table) 11/23/17 23:19 Urine Culture - Preliminary Urine,Catheterized 11/23/17 03:17 Blood Culture - Preliminary Blood No Growth after 24 hours 11/23/17 10:40 Urine Culture - Preliminary Urine,Voided Assessment and Plan Assessment: Chest pain, rule out cardiac causes Ileus versus mechanical intestinal obstruction, partial Hypertension Gerd COPD Plan: Patients with both chest pain and abdominal pain, in less distress than yesterday Also patient with chronic constipation, CT of the abdomen and pelvis is noted and there is ileus versus partial mechanical obstruction Surgical consultation is appreciated patient may suffer from colitis, diverticulitis at the distal call on continue with conservative treatment and checked for FOBT. GI consult is appreciated Mildly elevated troponins, and review of history of CAD, bradycardia, consult cardiology: pending Continue with IV hydration, nothing by mouth, and pain management with increased frequency discussed with staff Dr. Prince will resume care of the patient starting tomorrow
--- NOTE | 2017-11-24 15:26 | ECHOF ---
Referral Reason:bradycardia, chest pain, elevated trops MEASUREMENTS -------- HEIGHT: 170.2 cm WEIGHT: 83.9 kg BP: 138/81 RVIDd: 3.1 cm (< 3.3) IVSd: 1.2 cm (0.6 - 1.1) LVIDd: 5.7 cm (3.9 - 5.3) LVPWd: 1.2 cm (0.6 - 1.1) IVSs: 1.6 cm LVIDs: 3.7 cm LVPWs: 1.5 cm LAESV Index (A-L): 31.83 ml/m Ao Diam: 3.7 cm (2.0 - 3.7) AV Cusp: 2.0 cm (1.5 - 2.6) LA Diam: 3.7 cm (2.7 - 3.8) EPSS: 0.5 cm MV E [place]: 1.02 m/s MV DecT: 283 ms MV A [place]: 1.01 m/s MV E/A Ratio: 1.02 RAP: 5.00 mmHg RVSP: 17.29 mmHg MV EF SLOPE: 79.30 mm/s (70 - 150) MV EXCURSION: 1.85 cm (> 18.000) FINDINGS -------- Sinus rhythm. This was a technically adequate study. The left ventricular size is normal. There is mild concentric left ventricular hypertrophy. Overa ll left ventricular systolic function is low-normal with, an EF between 50 - 55 %. The right ventricle is mildly enlarged. LA is midly dilated 29-33ml/m2. RA appears enlarged. There is mild aortic valve sclerosis. There is no evidence of aortic regurgitation. There is no e vidence of aortic stenosis. The mitral valve leaflets are mildly thickened. There is trace to mild mitral regurgitation. Trace tricuspid regurgitation present. Right ventricular systolic pressure is normal at < 35 mmHg. There is no evidence of pulmonary hypertension. Trace/mild (physiologic) pulmonic regurgitation. The aortic root is borderline dilated up to 3.7 cm. IVC Not well visulized. There is no pericardial effusion. CONCLUSIONS -------- 1. Sinus rhythm. 2. This was a technically adequate study. 3. The left ventricular size is normal. 4. There is mild concentric left ventricular hypertrophy. 5. Overall left ventricular systolic function is low-normal with, an EF between 50 - 55 %. 6. The right ventricle is mildly enlarged. 7. LA is midly dilated 29-33ml/m2. 8. RA appears enlarged. 9. There is mild aortic valve sclerosis. 10. The mitral valve leaflets are mildly thickened. 11. There is trace to mild mitral regurgitation. 12. Trace tricuspid regurgitation present. 13. Right ventricular systolic pressure is normal at < 35 mmHg. 14. There is no evidence of pulmonary hypertension. 15. Trace/mild (physiologic) pulmonic regurgitation. 16. The aortic root is borderline dilated up to 3.7 cm. 17. IVC Not well visulized. 18. There is no pericardial effusion. PROFESSIONAL DRIVER: Fei Vaughn RDCS
--- NOTE | 2017-11-24 20:43 | CONS ---
CONSULTATION DATE OF SERVICE: 11/24/2017. REASON FOR CONSULTATION: Fever and abdominal infection. HISTORY OF PRESENT ILLNESS: The patient is a 57-year-old male presenting to the ER at [facility] on 11/23/2017 with chief complaints of abdominal pain. Apparently abdominal pain has been going on for a day before he presented to the hospital. The patient did have previous history of a perforated diverticulitis status post diverting colostomy. The patient describes the pain to be more colicky in nature, almost 8 out of 10 and no radiation. The patient denies any nausea and vomiting with it. With these symptoms, the patient has been evaluated by the ER physician. The patient did have a CT of abdomen and pelvis completed which did show a small amount of fluid in the pelvis. Mildly dilated loops of small bowel could be relate to ileus or partial mechanical obstruction. This is new compared to previous CT. Patient who was afebrile on admission and did have a normal white count subsequently did spike a fever of 103 Fahrenheit last night at which time I was contacted. The patient did have blood cultures obtained. UA was obtained which is negative. The patient was empirically started on Zosyn. As of this morning, the patient's fever has resolved. He has been complaining of abdominal pain. The patient denies having any chest pain or shortness of breath or cough. He did have some black stool in his colostomy bag, but denies significant loose stool or diarrhea. Denies having any urinary symptoms. REVIEW OF SYSTEMS: CONSTITUTIONAL: Positive for weakness and fever. Eyes no complaint. ENT no complaint. Respiratory no complaint. Cardiovascular no complaint. Genitourinary no complaint. Gastrointestinal: As per HPI. Musculoskeletal no complaint. Integumentary no complaint. Psychological no complaint. Endocrine no complaint. Neurologic no complaint. PAST MEDICAL HISTORY: Hypertension, AR, osteoarthritis, gastroesophageal reflux disease, COPD, angina, ruptured diverticulitis, hepatitis A, previous history of MRSA infection from the leg. PAST SURGICAL HISTORY: Bowel resection, diverting colostomy, heart catheterization with stent, hernia repair, shoulder surgery, cataract surgery. SOCIAL HISTORY: The patient is currently an every day smoker. Rarely drinks. Denies any drug use. FAMILY HISTORY: Mother with history of AR and cancer. Father history of AR. ALLERGIES: No known drug allergies. MEDICATIONS: The patient is currently on Tylenol, Lipitor, clobetasol, Klonopin, diclofenac, doxycycline, hydralazine, and Atarax, Claritin, morphine sulfate, Narcan, nicotine patch, NitroStat, Zofran, Piptazobactam 4.5 q8 and IV fluids. EXAMINATION: Blood pressure is 145/74, pulse of 70, temperature 97, he is 100% on room air. General description is a middle-aged male lying in bed in no distress. No tachypnea or accessory muscles of respiration use. HEENT: Shows no pallor or scleral icterus. Oral mucosa membranes is dry. No pharyngeal erythema or thrush. Neck trachea central. No thyromegaly. Lungs unlabored breathing. Clear to auscultation anteriorly. No wheeze or crackles. Heart S1, S2 regular rate and rhythm. ABDOMEN: Soft, mildly tender lower quadrant area. No guarding or rigidity. No organomegaly. Extremities: No edema of the feet. Skin examination shows multiple cm from a previous rash. No active cellulitis though. Neurological: Patient is awake, alert, oriented times three. Mood and affect normal. LABS: Hemoglobin is 14, white count 4.4 with a BUN of 6, creatinine 0.50, potassium 3.9. UA has been negative. Blood culture currently pending. DIAGNOSTIC IMPRESSION AND PLAN: Patient with fever and abdominal pain in patient who does have a history of diverticulitis with diverting colostomy, did have a CT with some pelvic fluid collection and currently per the surgical team did have some evidence of diverticulitis at the residual colon area may be contributing to his fever and likely organism. Need to cover with the entire gram-negative both aerobes and anaerobes. PLAN: 1. Zosyn 3.375 g q.8 hours should provide adequate coverage. 2. Blood cultures have been obtained. We will follow up. 3. Gentle IV fluid. 4. We will follow up on his clinical condition and culture to further adjust medication if needed. Thank you for this consultation. We will follow the patient along with you. MMODL / IJN: [id number] /
[2017-11-24] MEDS: ATORVASTATIN 80 MG TAB PO SCH (20:49)
[2017-11-24] MEDS: hydrOXYzine HCL 25 MG TAB PO SCH (20:50)
--- NOTE | 2017-11-25 00:28 | CONS ---
CONSULTATION DATE OF CONSULTATION: 11/24/2017 This patient's medical records were reviewed. The patient is currently mildly sleepy and lethargic and history was mostly obtained from the chart. This patient is known to us from his previous admissions. The patient has a significant abdominal pain and nausea as well as the back pain and some atypical chest pain. Patient had mildly abnormal troponin level and in view of that, the patient we requested . This patient recently had a perforated bowel and underwent a colonoscopy that showed . The patient is admitted with nausea and vomiting. Initial CT scan was suggestive of ileus. Patient subsequently spiked a temperature of 103 last night. Blood cultures were obtained and patient was started on NG tube. The patient nausea is improved. The patient denies any significant chest pains at present. PAST MEDICAL HISTORY: Includes history of hypertension, history of COPD and angina. MEDICATIONS: Current medications include Klonopin, diclofenac, doxycycline, hydralazine, Morphine, nicotine patch. PHYSICAL EXAMINATION: At present reveals patient is afebrile. Blood pressure is 145/75, mmHg. HEENT examination is negative. NECK: Supple. There is no increase in jugular venous pressure. Both the carotid pulses are felt. There is no bruit. Chest is symmetrical. Heart the PMI is not felt. First and second heart sounds are normal. Lungs are fairly clear to auscultation and percussion. ABDOMEN: Soft and mildly tender. Extremities, peripheral pulses 1+. The patient's EKG shows normal sinus rhythm with sinus bradycardia, and without any acute ischemic changes. The patient's hemoglobin is 14.4, white count is 4400. Electrolytes normal. The patient had 3 sets of troponin. Initial troponin was 0.014. Subsequent 3 troponins are almost identical. Echocardiogram does not show any wall motion abnormality. FINAL IMPRESSION: This patient is admitted with symptoms of abdominal pain nausea and vomiting. Patient is considered for possible diverticulitis at the site of her colostomy and is treated for the infection. The patient has a minimally elevated troponin and the troponin patterns are not suggestive of acute coronary syndrome. Echocardiogram does not show any evidence of wall motion abnormality to suggest any myocardial infarction and EKG does not show any acute ischemic changes. At present, we will continue the patient on current treatment. MMODL / IJN: [id number] /
[2017-11-25] MEDS: MORPHINE SULFATE 4 MG/0.8 ML SYRINGE (INJ) IV PRN ×3 (01:25→07:25)
[2017-11-25] MEDS: SODIUM CHLORIDE 0.9% 1,000 ML IV SCH ×3 (04:25→20:22)
[2017-11-25] MEDS: PIPERACILLIN-TAZOBACTAM 3.375 GM in DEXTROSE/WATER 1 50ML.BAG IVPB SCH ×3 (08:21→23:49)
[2017-11-25] MEDS: DICLOFENAC SODIUM GEL 100 GM TUBE TOPICAL SCH ×4 (08:22→20:22)
[2017-11-25] MEDS: CLOBETASOL PROP 0.05% CR 15GM TOPICAL SCH ×2 (08:22→20:21)
[2017-11-25] MEDS ORDERED: ALBUTEROL NEBULIZED 2.5 MG/3 ML INHALATION PRN (09:47)
[2017-11-25 10:29] LABS: Basophils % (A) 1 %; Eosinophils % (A) 1 %; HCT 39.9 % (39.0-53.0); HGB 13.2 gm/dL (13.0-17.5); Lymphocytes # (A) 1.2 k/uL (1.0-4.8); Lymphocytes % (A) 34 %; MCH 30.7 pg (25.0-35.0); MCHC 33.2 g/dL (31.0-37.0); MCV 92.6 fL (80.0-100.0); Mean Platelet Volume 8.8; Monocytes # (A) 0.1 k/uL (0-1.0); Monocytes % (A) 4 %; Neutrophils # (A) 2.1 k/uL (1.3-7.7); Neutrophils % (A) 59 %; Platelet Count 100 k/uL (150-450); RBC 4.31 m/uL (4.30-5.90); RDW 14.2 % (11.5-15.5); WBC 3.5 k/uL (3.8-10.6)
[2017-11-25 10:31] LABS: Anion Gap 10 mmol/L; Blood Urea Nitrogen 7 mg/dL (9-20); Calcium 7.5 mg/dL (8.4-10.2); Carbon Dioxide 26 mmol/L (22-30); Chloride 104 mmol/L (98-107); Glucose 69 mg/dL (74-99); Potassium 3.6 mmol/L (3.5-5.1); Sodium 140 mmol/L (137-145)
[2017-11-25] MEDS: MORPHINE SULFATE 4 MG/ML SYRINGE IV PRN ×4 (11:34→22:24)
[2017-11-25] MEDS: LORATADINE 10 MG TAB PO SCH (11:35)
[2017-11-25] MEDS: hydrALAZINE HCL 50 MG TAB PO SCH ×2 (11:35→20:22)
[2017-11-25] MEDS: DOXYCYCLINE MONOHYDRATE 100 MG CAPSULE PO SCH ×2 (11:35→20:20)
[2017-11-25] MEDS: NICOTINE 21MG/24HR PATCH TRANSDERM SCH (11:35)
[2017-11-25 11:51] LABS: Glucose,Whole Blood 87 mg/dL (75-99)
[2017-11-25] MEDS: clonazePAM 1 MG TAB PO SCH ×2 (13:33→20:20)
--- NOTE | 2017-11-25 15:32 | P.PN ---
Subjective Progress Note Date: 11/25/17 Principal diagnosis: PSBO The patient seems more alert today. He states his back pain which is chronic in nature is the source of most of his pain. Still having some midabdominal discomfort. His nasogastric tube output is coffee-ground in nature. He has had flatus in the ostomy appliance since yesterday without bowel movement. Fevers have resolved. White blood cell count 3.5. Objective - Vital Signs Vital signs: Vital Signs Temp 97.1 F L 11/25/17 15:00 Pulse 76 11/25/17 15:00 Resp 18 11/25/17 15:00 BP 114/78 11/25/17 15:00 Pulse Ox 97 11/25/17 15:00 Intake & Output 11/24/17 11/25/17 11/25/17 18:59 06:59 18:59 Intake Total 0 Output Total 1600 900 750 Balance -1600 -900 -750 Weight 83.915 kg Intake: Oral 0 Output: Gastric Drainage 1000 300 Urine 600 900 450 Other: Voiding Method Urinal # Voids 1 - Exam Abdomen: Soft, nondistended, mild tenderness around ostomy site and midabdomen - Labs CBC & Chem 7: 11/25/17 09:49 11/25/17 09:49 Labs: Abnormal Lab Results - Last 24 Hours (Table) 11/25/17 11/25/17 Range/Units 09:49 09:49 WBC 3.5 L (3.8-10.6) k/uL Plt Count 100 L (150-450) k/uL BUN 7 L (9-20) mg/dL Creatinine 0.54 L (0.66-1.25) mg/dL Glucose 69 L (74-99) mg/dL Calcium 7.5 L (8.4-10.2) mg/dL Microbiology - Last 24 Hours (Table) 11/23/17 23:19 Urine Culture - Final Urine,Catheterized 11/23/17 03:17 Blood Culture - Preliminary Blood No Growth after 48 hours 11/23/17 23:22 Blood Culture - Preliminary Blood No Growth after 24 hours 11/23/17 22:35 Blood Culture - Preliminary Blood No Growth after 24 hours 11/23/17 10:40 Urine Culture - Final Urine,Voided Assessment and Plan (1) Abdominal pain Narrative/Plan: Patient with melanotic stools prior to admission and now coffee-ground gastric effluent. We'll plan upper endoscopy. While doing the upper endoscopy I will evaluate the distal colon at the ostomy site given the CAT scan findings to evaluate for colitis. No bowel prep will take place. For now nasogastric tube to suction. Continue IV antibiotics. Current Visit: No Status: Acute Code(s): R10.9 - UNSPECIFIED ABDOMINAL PAIN SNOMED Code(s): 01021857
[2017-11-25] MEDS: ATORVASTATIN 80 MG TAB PO SCH (20:20)
[2017-11-25] MEDS: hydrOXYzine HCL 25 MG TAB PO SCH (20:20)
--- NOTE | 2017-11-25 22:25 | P.PN ---
Subjective Progress Note Date: 11/25/17 Principal diagnosis: Abdominal pain with colitis and history of diverticular disease. This is a continue present on a 57-year-old white male with history of Snehal' s pouch about 6-8 months ago who has had difficulty with his revision. He has had significant rash of his upper extremities which, has been actually improving. Question more [place]'s type symptomatology. I have slowly tried to decrease his opiate load over the last several months and he has been having some difficulty. However, he seems to be resting comfortably and does complain of pain once awoken. Objective - Vital Signs Vital signs: Vital Signs Temp 97.1 F L 11/25/17 15:00 Pulse 76 11/25/17 15:00 Resp 18 11/25/17 15:00 BP 114/78 11/25/17 15:00 Pulse Ox 97 11/25/17 15:00 Intake & Output 11/25/17 11/25/17 11/26/17 06:59 18:59 06:59 Intake Total 0 Output Total 900 950 Balance -900 -950 Weight 83.915 kg Intake: Oral 0 Output: Gastric Drainage 500 Urine 900 450 Other: Voiding Method Urinal Urinal - Constitutional General appearance: Present: average body habitus - EENT Eyes: Absent: abnormal pupil - Respiratory Respiratory: bilateral: CTA - Cardiovascular Rhythm: regular Heart sounds: normal: S1, S2 Abnormal Heart Sounds: Absent: S3 Gallop - Gastrointestinal Gastrointestinal Comment(s): Colostomy otherwise noted. - Labs CBC & Chem 7: 11/25/17 09:49 11/25/17 09:49 Labs: Abnormal Lab Results - Last 24 Hours (Table) 11/25/17 11/25/17 Range/Units 09:49 09:49 WBC 3.5 L (3.8-10.6) k/uL Plt Count 100 L (150-450) k/uL BUN 7 L (9-20) mg/dL Creatinine 0.54 L (0.66-1.25) mg/dL Glucose 69 L (74-99) mg/dL Calcium 7.5 L (8.4-10.2) mg/dL Microbiology - Last 24 Hours (Table) 11/23/17 23:19 Urine Culture - Final Urine,Catheterized 11/23/17 03:17 Blood Culture - Preliminary Blood No Growth after 48 hours 11/23/17 23:22 Blood Culture - Preliminary Blood No Growth after 24 hours 11/23/17 22:35 Blood Culture - Preliminary Blood No Growth after 24 hours 11/23/17 10:40 Urine Culture - Final Urine,Voided Assessment and Plan (1) Diverticulitis Current Visit: Yes Status: Acute Code(s): K57.92 - DVTRCLI OF INTEST, PART UNSP, W/O PERF OR ABSCESS W/O BLEED SNOMED Code(s): 319289360 (2) Opiate dependence Current Visit: Yes Status: Acute Code(s): F11.20 - OPIOID DEPENDENCE, UNCOMPLICATED SNOMED Code(s): 28609862 (3) Ileus Current Visit: Yes Status: Acute Code(s): K56.7 - ILEUS, UNSPECIFIED SNOMED Code(s): 991386259 (4) Intractable abdominal pain Current Visit: No Status: Acute Code(s): R10.9 - UNSPECIFIED ABDOMINAL PAIN SNOMED Code(s): 10678273 (5) Status post Snehal procedure Current Visit: No Status: Acute Code(s): Z93.3 - COLOSTOMY STATUS SNOMED Code(s): 920391959 Plan: Appreciate surgical input. Check CBC and CMP in a.m. Pain control within reason. See orders otherwise.
[2017-11-26] MEDS: MORPHINE SULFATE 4 MG/ML SYRINGE IV PRN ×7 (02:47→23:16)
[2017-11-26] MEDS: SODIUM CHLORIDE 0.9% 1,000 ML IV SCH ×3 (06:02→22:31)
--- NOTE | 2017-11-26 06:42 | PN ---
PROGRESS NOTE DATE OF SERVICE: 11/25/2017. REASON FOR FOLLOW UP: Fever and likely diverticulitis. INTERVAL HISTORY: The patient is afebrile. He has been complaining of more lower back pain. His abdominal pain has slightly improved. Still decreased appetite. Some nausea but no vomiting. Denies any chest pain, shortness of breath or cough. EXAMINATION: Blood pressure 114/70 with a pulse of 73, temperature of 97.1. He is 97% on 2 L nasal cannula. General description is a middle-aged male lying in bed in no distress. RESPIRATORY SYSTEM: Unlabored breathing. Clear to auscultation anteriorly. HEART: S1, S2. Regular rate and rhythm. ABDOMEN: Soft, mildly tender. No guarding or rigidity. EXTREMITIES: No edema of feet. LABS: Hemoglobin 13.2, white count 3.5, BUN of 7, creatinine 0.54. Blood cultures have been negative so far. DIAGNOSTIC IMPRESSION AND PLAN: Patient with fever, source likely diverticulitis and abdominal. No other clinical focus of infection. Currently on the Zosyn. That will be continued for now. Continue supportive care. MMODL / IJN: [id number] /
[2017-11-26] MEDS: clonazePAM 1 MG TAB PO SCH ×2 (09:09→22:09)
[2017-11-26] MEDS: PIPERACILLIN-TAZOBACTAM 3.375 GM in DEXTROSE/WATER 1 50ML.BAG IVPB SCH ×3 (09:09→23:15)
[2017-11-26] MEDS: CLOBETASOL PROP 0.05% CR 15GM TOPICAL SCH ×2 (09:09→22:12)
[2017-11-26] MEDS: NICOTINE 21MG/24HR PATCH TRANSDERM SCH (09:10)
[2017-11-26] MEDS: DICLOFENAC SODIUM GEL 100 GM TUBE TOPICAL SCH ×4 (09:10→22:16)
[2017-11-26] MEDS: DOXYCYCLINE MONOHYDRATE 100 MG CAPSULE PO SCH ×2 (09:10→22:09)
[2017-11-26] MEDS: LORATADINE 10 MG TAB PO SCH (09:10)
[2017-11-26] MEDS: hydrALAZINE HCL 50 MG TAB PO SCH ×2 (09:10→22:10)
[2017-11-26] MEDS ORDERED: IV FLUID CONTINUATION 1,000 ML IV ONE (12:48)
[2017-11-26] MEDS ORDERED: PROPOFOL 10 MG/ML 20 ML VIAL IV ONE (12:55)
--- NOTE | 2017-11-26 13:18 | P.PCN ---
Date of Procedure: 11/26/17 Procedure(s) Performed: PREOPERATIVE DIAGNOSIS: Melanotic stools, abdominal pain, colitis POSTOPERATIVE DIAGNOSIS: Erosive gastritis, diverticulosis PROCEDURE: 1. EGD with biopsy 2. Colonoscopy partial ANESTHESIA: MAC SURGEON: Ubaldo Rodriguez M.D. SPECIMENS: Gastritis ENDOSCOPIC PROCEDURE: The patient was on the endoscopy table in the supine position. The Olympus gastroscope was inserted into the oropharynx and passed under direct visualization to the region of the third portion of the duodenum. From that point the scope was slowly withdrawn inspecting all surfaces carefully. There were no neoplastic inflammatory or polypoid lesions throughout the duodenum. The pylorus was widely patent. The stomach was carefully inspected. There was diffuse gastritis present with multiple superficial erosions identified. This is likely the source of recent melanotic stools and partially the source of abdominal pain. Some of this could've been related to the recent nasogastric tube. A biopsy of the gastritis took place. Retroflexion revealed a normal hiatus. The esophagus was then carefully examined. There were no neoplastic inflammatory or polypoid lesions throughout the visualized esophagus. The patient was kept on the endoscopy table in the supine position. The Olympus colonoscope was inserted into the ostomy and the distal colon was inspected. There was bilious fluid seen throughout. There was some diverticulosis present. The ostomy in the visualized colon appeared normal without inflammatory changes however. The skin around the ostomy was likewise fairly normal in appearance. He had mild tenderness there. There was no erythema or bogginess. The mucocutaneous border was fully intact. The mucosa was free of inflammation. The patient was taken to the recovery room in stable condition per anesthesia guidelines. RECOMMENDATIONS: Increase antiacid therapy. Resume diet. Repeat x-rays tomorrow.
--- NOTE | 2017-11-26 14:15 | PN ---
PROGRESS NOTE DATE OF SERVICE: 11/26/2017 REASON FOR FOLLOWUP: Fever, likely diverticulitis. INTERVAL HISTORY: The patient did have a low-grade fever last night 100.3; however, the patient is afebrile since then. He did complain of some abdominal pain. His NG has been discontinued. No abnormal vomiting. Scheduled for endoscopic procedure this afternoon per the patient. PHYSICAL EXAMINATION: Blood pressure 169/74, pulse of 56, temperature 97.5, he is 96% on 2 L nasal cannula. General description is a middle-aged male, lying in bed in no distress. RESPIRATORY SYSTEM: Unlabored breathing, clear to auscultation anteriorly. HEART: S1, S2. Regular rate and rhythm. ABDOMEN: Soft, no tenderness. LABS: Hemoglobin 13.2, white count of 3.5, as of yesterday, none repeated today. Blood culture has been negative. DIAGNOSTIC IMPRESSION AND PLAN: Patient with abdominal pain and fever with concern for possible diverticulitis at the site of the colostomy. The patient going down for endoscopic procedure today, keep him on Zosyn to which the fever has responded. Blood cultures has been negative. Continue supportive care. MMODL / IJN: [id number] /
[2017-11-26] MEDS: FAMOTIDINE 20 MG/2 ML VIAL IV SCH ×2 (14:25→22:10)
[2017-11-26 14:42] VITALS: BMI 29.0
[2017-11-26] MEDS: SUCRALFATE 1 GM TAB PO SCH (16:41)
[2017-11-26] MEDS ORDERED: guaiFENesin-DM 100-10MG/5ML 10 ML CUP PO PRN (21:28)
[2017-11-26] MEDS ORDERED: BENZOCAINE/MENTHOL LOZENG 1 EACH LOZENGE MUCOUS MEM PRN (21:28)
[2017-11-26] MEDS: hydrOXYzine HCL 25 MG TAB PO SCH (22:09)
[2017-11-26] MEDS: ATORVASTATIN 80 MG TAB PO SCH (22:09)
[2017-11-27] MEDS: OSELTAMIVIR 75 MG CAP PO SCH ×3 (00:02→20:38)
[2017-11-27] MEDS: MORPHINE SULFATE 4 MG/ML SYRINGE IV PRN (03:28)
[2017-11-27] MEDS: SODIUM CHLORIDE 0.9% 1,000 ML IV SCH (06:36)
--- NOTE | 2017-11-27 08:19 | P.PN ---
Subjective Progress Note Date: 11/27/17 Principal diagnosis: PSBO Patient feels well today. Denies abdominal pain. Only having back discomfort currently. He is afebrile. Morning labs are pending. Ostomy with bilious output. Denies bloating. Denies nausea or vomiting. Objective - Vital Signs Vital signs: Vital Signs Temp 98.1 F 11/27/17 07:00 Pulse 66 11/27/17 07:00 Resp 18 11/27/17 07:00 BP 143/66 11/27/17 07:00 Pulse Ox 91 L 11/27/17 07:00 Intake & Output 11/26/17 11/27/17 11/27/17 18:59 06:59 18:59 Intake Total 250 600 Balance 250 600 Weight 83.915 kg Intake: IV 250 Oral 600 Other: Voiding Method Toilet # Voids 2 2 # Bowel Movements 2 - Exam Abdomen: Soft, nondistended, no appreciable tenderness - Labs CBC & Chem 7: 11/25/17 09:49 11/25/17 09:49 Labs: Abnormal Lab Results - Last 24 Hours (Table) 11/26/17 Range/Units 22:29 Influenza Type B (PCR) Detected H (Not Detectd) Microbiology - Last 24 Hours (Table) 11/23/17 03:17 Blood Culture - Preliminary Blood No Growth after 96 hours 11/23/17 23:22 Blood Culture - Preliminary Blood No Growth after 72 hours 11/23/17 22:35 Blood Culture - Preliminary Blood No Growth after 72 hours Assessment and Plan (1) Abdominal pain Narrative/Plan: Gigi advancing diet as tolerated. Continue antibiotics per infectious disease. Etiology the patient's fevers remains somewhat unclear although may be related to localized diverticulitis or colitis just at the ostomy level. Current Visit: No Status: Acute Code(s): R10.9 - UNSPECIFIED ABDOMINAL PAIN SNOMED Code(s): 88756549
[2017-11-27] MEDS: SUCRALFATE 1 GM TAB PO SCH ×2 (09:09→17:29)
[2017-11-27] MEDS: NICOTINE 21MG/24HR PATCH TRANSDERM SCH (09:09)
[2017-11-27] MEDS: FAMOTIDINE 20 MG/2 ML VIAL IV SCH (09:10)
[2017-11-27] MEDS: DOXYCYCLINE MONOHYDRATE 100 MG CAPSULE PO SCH ×2 (09:10→20:37)
[2017-11-27] MEDS: LORATADINE 10 MG TAB PO SCH (09:10)
[2017-11-27] MEDS: hydrALAZINE HCL 50 MG TAB PO SCH ×2 (09:10→20:37)
[2017-11-27] MEDS: CLOBETASOL PROP 0.05% CR 15GM TOPICAL SCH ×2 (09:11→20:40)
[2017-11-27] MEDS: clonazePAM 1 MG TAB PO SCH ×2 (09:17→20:35)
[2017-11-27 09:35] LABS: HCT 36.4 % (39.0-53.0); HGB 12.2 gm/dL (13.0-17.5); MCH 30.1 pg (25.0-35.0); MCHC 33.4 g/dL (31.0-37.0); MCV 89.9 fL (80.0-100.0); Mean Platelet Volume 10.6; RBC 4.05 m/uL (4.30-5.90); WBC 2.7 k/uL (3.8-10.6)
[2017-11-27 09:45] LABS: ALT 27 U/L (21-72); AST 28 U/L (17-59); Albumin 2.4 g/dL (3.5-5.0); Alkaline Phosphatase 71 U/L (38-126); Anion Gap 8 mmol/L; Blood Urea Nitrogen 3 mg/dL (9-20); Calcium 7.5 mg/dL (8.4-10.2); Carbon Dioxide 29 mmol/L (22-30); Chloride 103 mmol/L (98-107); Glucose 83 mg/dL (74-99); Potassium 3.3 mmol/L (3.5-5.1); Sodium 140 mmol/L (137-145); Total Bilirubin 0.4 mg/dL (0.2-1.3); Total Protein 4.7 g/dL (6.3-8.2)
[2017-11-27 10:09] LABS: Platelet Count 78 k/uL (150-450)
[2017-11-27] MEDS: PIPERACILLIN-TAZOBACTAM 3.375 GM in DEXTROSE/WATER 1 50ML.BAG IVPB SCH (10:43)
[2017-11-27] MEDS: MORPHINE ORAL SOLN 10 MG/5 ML CUP PO PRN ×4 (10:43→20:34)
[2017-11-27] MEDS: DICLOFENAC SODIUM GEL 100 GM TUBE TOPICAL SCH ×4 (10:44→20:40)
--- NOTE | 2017-11-27 13:36 | XR ---
EXAMINATION TYPE: XR abdomen 2V DATE OF EXAM: 11/27/2017 COMPARISON: 11/24/2017 HISTORY: Follow-up ileus TECHNIQUE: One view abdominal series FINDINGS: The osseous structures are intact. The bowel gas pattern is nonspecific. NG tube is been removed. Hy pertrophic changes of the spine noted. Ostomy noted in the left lower quadrant. Vascular calcificatio ns are seen. There are no dilated bowel loops. IMPRESSION: 1. Nonspecific abdomen.
[2017-11-27] MEDS: metroNIDAZOLE 500 MG TAB PO SCH ×3 (17:29→20:38)
[2017-11-27] MEDS: FAMOTIDINE 20 MG TAB PO SCH (20:37)
[2017-11-27] MEDS: ATORVASTATIN 80 MG TAB PO SCH (20:37)
[2017-11-27] MEDS: hydrOXYzine HCL 25 MG TAB PO SCH (20:38)
--- NOTE | 2017-11-27 22:39 | PN ---
PROGRESS NOTE DATE OF SERVICE: 11/27/2017 REASON FOR FOLLOWUP: 1. Fever, likely diverticulitis. 2. Acute influenza. INTERVAL HISTORY: The patient did have a low-grade fever the night before influenza swab was taken which came back positive. The patient will be transferred to the isolation room and started on Tamiflu in addition to Zosyn. The patient is currently afebrile, has been breathing comfortably. Denies significant chest pain. Abdominal pain has improved. No nausea, vomiting or any diarrhea. PHYSICAL EXAMINATION: Blood pressure 143/66, pulse of 92, temperature 97.3. He is 90% on room air. General description is a middle-aged male lying in bed in no distress. RESPIRATORY SYSTEM: Unlabored breathing. Clear to auscultation anteriorly. HEART: S1, S2. Regular rate and rhythm. ABDOMEN: Soft. No tenderness. LABS: Hemoglobin is 12.2 with a white count of 2.7. Platelet count is down to 78 with a BUN of 3, creatinine 0.50. DIAGNOSTIC IMPRESSION AND PLAN: 1. Patient with a fever. Source is likely diverticulitis. CT was reviewed with Dr. Gibbs and shows inflammation portion of colon colostomy with no evidence of any abscess. The patient is now showing evidence of leukopenia as well as thrombocytopenia. That could be related to Zosyn; hence will discontinue the Zosyn and start the patient on Rocephin 2 grams daily and continue the Flagyl. 2. Patient with acute influenza B, started on Tamiflu. That will continue for [address] of abdomen and pelvis was reviewed with radiologist, including the bone windows, which did show some evidence of arthritis but no suspicious lesions suspicious for diskitis or infectious etiology. MMODL / IJN: [id number] /
[2017-11-28] MEDS: MORPHINE ORAL SOLN 10 MG/5 ML CUP PO PRN ×4 (00:04→12:07)
[2017-11-28] MEDS: cefTRIAXone IN SWFI 2,000 MG/20 ML SYRINGE IVP SCH ×2 (01:48→15:38)
[2017-11-28] MEDS: metroNIDAZOLE 500 MG TAB PO SCH (10:11)
[2017-11-28] MEDS: DOXYCYCLINE MONOHYDRATE 100 MG CAPSULE PO SCH (10:11)
[2017-11-28] MEDS: OSELTAMIVIR 75 MG CAP PO SCH (10:11)
[2017-11-28] MEDS: SUCRALFATE 1 GM TAB PO SCH (10:11)
[2017-11-28] MEDS: LORATADINE 10 MG TAB PO SCH (10:11)
[2017-11-28] MEDS: CLOBETASOL PROP 0.05% CR 15GM TOPICAL SCH (10:12)
[2017-11-28] MEDS: FAMOTIDINE 20 MG TAB PO SCH (10:12)
[2017-11-28] MEDS: hydrALAZINE HCL 50 MG TAB PO SCH (10:12)
[2017-11-28] MEDS: clonazePAM 1 MG TAB PO SCH (10:23)
[2017-11-28] MEDS: NICOTINE 21MG/24HR PATCH TRANSDERM SCH (10:23)
[2017-11-28] MEDS: DICLOFENAC SODIUM GEL 100 GM TUBE TOPICAL SCH ×2 (10:23→13:05)
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
[2017-11-28 15:36] VITALS: BP 133/66; PULSE 75; RESP 18; TEMP 97.3
--- NOTE | 2017-11-28 16:57 | P.DS ---
Providers Date of admission: 11/23/17 05:13 Attending physician: Des Prince Consults: 11/23/17 05:05 Consult Physician Stat Consulting Provider: Ubaldo Rodriguez Consult Reason/Comments: Ileus, possible partial bowel obstruction Do you want consulting provider notified?: Yes 11/23/17 12:10 Consult Physician Urgent Consulting Provider: Nathan Queen Consult Reason/Comments: bradycardia, elevated troponins, chest discomfort Do you want consulting provider notified?: Yes 11/23/17 22:37 Consult Physician Stat Consulting Provider: Krishan Kennedy Consult Reason/Comments: Elevated temp Do you want consulting provider notified?: Yes Primary care physician: Des Prince [facility] Course: This is Dr. sheet covering for Dr. Prince the patient is known to me from earlier during this admission when I was covering Dr. Prince, when I saw the patient today he was showing significant improvement compared the previous few days This is a pleasant 57 years old male with past medical history of CAD, COPD, GERD, hypertension, chronic pain, gout, MRSA infection, status post cardiac cath , chronic back pain for 10 years as per patient, status post colostomy secondary to perforated sigmoid colon on 03/2017 He was in the hospital about 2 weeks ago with abdominal pain around the colostomy back associated with nausea vomiting at that time he has been evaluated by surgery and GI team and treated conservatively with relieving of constipation and advising diet This time patient presents with the same pain he says 10 out of 10 around colostomy bag associated with constipation, nausea and vomiting Also patient complains from left side upper chest pain of 3 days' duration radiating to the left arm nonspecific about 8/10 in severity in the emergency room his troponins were slightly elevated at 0.038, he has negative CTPA for PE due to high d-dimer, drift miner evaluated the patient and troponin pattern is suggestive of ACS, troponin came back to normal Dr. Rodriguez from surgery evaluated the patient, patient underwent EGD and colonoscopy on 11/26/2016 showing diffuse gastritis with multiple erosions, while the colon was normal appearing mucosa of the stoma without any inflammatory changes with some diverticulosis, patient is treated with antiacids. However CT of the abdomen and pelvis was suspicious for colitis around the stoma , ID team evaluated the patient for colitis and started the patient on Rocephin and Flagyl, patient showed interval improvement in his symptoms, patient will be discharged on Ceftin and Flagyl for 10 more days as per ID recommendation. Influenza B was positive, as per patient he got this infection from his nearby patient in the same room, patient currently denies any upper respiratory symptoms for example no sneezing and no coughing, patient will be treated with Tamiflu for total of 5 days as per ID recommendations Patient has leukopenia with white BCs today at 2.7K and low platelets at 78, no signs and symptoms of bleeding, thought to be due to medication effect, patient informed and recommended to follow-up with his PCP to repeat his blood work and he verbalized understanding and acceptance Patient he feels well today, and he feels he can be discharged home Problem list were discussed with the patient and management plan and outpatient follow-up recommendation and he verbalized understanding and acceptance to this plan, appointment were made for him, pt was informed with the appointment dates and he agreed to them Patient is found stable and can be discharged home but he needs follow-up as an outpatient Constitutional: No acute distress, conversant, pleasant Eyes: Anicteric sclerae, moist conjunctiva, no lid-lag PERRLA ENMT: NC/AT Oropharynx clear, no erythema, exudates Neck: Supple, FROM, no masses, or JVD No carotid bruits No thyromegaly Lungs: Clear to auscultation Clear to percussion Normal respiratory effort, no accessory muscle use Cardiovascular: Heart regular in rate and rhythm, No murmurs, gallops, or rubs No peripheral edema Abdominal: Soft Nontender, no guarding, rebound or rigidity Abdomen moving with respiration, colostomy back in a Place, with no surrounding signs and symptoms of inflammation Normoactive bowel sounds No hepatomegaly, No splenomegaly No palpable mass No abdominal wall hernia noted Skin: Normal temperature, tone, texture, turgor No induration No subcutaneous nodules No rash, lesions No ulcers Extremities: No digital cyanosis No clubbing Pedal pulses intact and symmetrical Radial pulses intact and symmetrical Normal gait and station No calf tenderness Psychiatric: Alert and oriented to person, place and time Appropriate affect Intact judgement Neuro: Muscles Strength 5/5 in all 4 extremities Sensation to light touch grossly present throughout Cranial nerves II-XII grossly intact No focal sensory deficits please refer to your discharge paper for your medication list Patient Condition at Discharge: Good Plan - Discharge Summary Discharge Rx Participant: No New Discharge Prescriptions: New Cefuroxime Axetil [Ceftin] 500 mg PO BID #20 tab metroNIDAZOLE [Flagyl] 500 mg PO Q8HR #30 tab Acetaminophen Tab [Tylenol] 650 mg PO Q6HR PRN #10 tab PRN Reason: Mild Pain Or Fever > 100.5 Famotidine [Pepcid] 20 mg PO Q12HR #60 tab Oseltamivir [Tamiflu] 75 mg PO Q12HR #6 cap oxyCODONE HCL [OxyIR] 20 mg PO Q12H PRN tab PRN Reason: Pain Sucralfate [Carafate] 1 gm PO AC-BID #60 tab Continue hydrALAZINE HCL 50 mg PO BID hydrOXYzine HCL [Atarax] 25 mg PO HS Nitroglycerin Sl Tabs [Nitrostat] 0.4 mg SUBLINGUAL Q5M PRN PRN Reason: Chest Pain Furosemide [Lasix] 40 mg PO DAILY Atorvastatin [Lipitor] 80 mg PO HS clonazePAM [KlonoPIN] 1 mg PO BID Cetirizine HCl [Zyrtec] 10 mg PO DAILY Albuterol Inhaler [Ventolin Hfa Inhaler] 2 puff INHALATION RT-Q6H PRN PRN Reason: Shortness Of Breath Diclofenac Sodium [Voltaren Gel] 2 gram TOPICAL QID Halobetasol Propionate 1 applic TOPICAL BID Discontinued Doxycycline Hyclate 100 mg PO BID Discharge Medication List Albuterol Inhaler [Ventolin Hfa Inhaler] 2 puff INHALATION RT-Q6H PRN 11/10/17 [ History] Atorvastatin [Lipitor] 80 mg PO HS 11/10/17 [History] Cetirizine HCl [Zyrtec] 10 mg PO DAILY 11/10/17 [History] Diclofenac Sodium [Voltaren Gel] 2 gram TOPICAL QID 11/10/17 [History] Furosemide [Lasix] 40 mg PO DAILY 11/10/17 [History] Halobetasol Propionate 1 applic TOPICAL BID 11/10/17 [History] Nitroglycerin Sl Tabs [Nitrostat] 0.4 mg SUBLINGUAL Q5M PRN 11/10/17 [History] clonazePAM [KlonoPIN] 1 mg PO BID 11/10/17 [History] hydrALAZINE HCL 50 mg PO BID 11/10/17 [History] hydrOXYzine HCL [Atarax] 25 mg PO HS 11/10/17 [History] Acetaminophen Tab [Tylenol] 650 mg PO Q6HR PRN #10 tab 11/28/17 [Rx] Cefuroxime Axetil [Ceftin] 500 mg PO BID #20 tab 11/28/17 [Rx] Famotidine [Pepcid] 20 mg PO Q12HR #60 tab 11/28/17 [Rx] Oseltamivir [Tamiflu] 75 mg PO Q12HR #6 cap 11/28/17 [Rx] Sucralfate [Carafate] 1 gm PO AC-BID #60 tab 11/28/17 [Rx] metroNIDAZOLE [Flagyl] 500 mg PO Q8HR #30 tab 11/28/17 [Rx] oxyCODONE HCL [OxyIR] 20 mg PO Q12H PRN tab 11/28/17 [Rx] Follow up Appointment(s)/Referral(s): Ubaldo Rodriguez MD [Medical Doctor] - 12/05/17 10:15 am (please go for your surgery clinic appointment , for f/u of your colitis and biopsy results ) [facility], [NON-STAFF] - 1 Week Des Prince MD [Primary Care Provider] - 12/02/17 4:53 pm (please go to see your doctor on this Saturday12/02/2017 @11:20 am please call to confirm your appointment ) Patient Instructions/Handouts: Ileus (DC) Activity/Diet/Wound Care/Special Instructions: [facility] Pain appointment Dec 18 2017 Cardiac diet Activity as tolerated Discharge Disposition: HOME WITH HOME HEALTH SERVICES
--- NOTE | 2017-11-28 17:08 | P.PN ---
Subjective Progress Note Date: 11/28/17 Principal diagnosis: PSBO Patient doing better today. Denies abdominal pain. Still having chronic back pain. Tolerating diet. Liquid bilious stools noted Objective - Vital Signs Vital signs: Vital Signs Temp 97.3 F L 11/28/17 15:00 Pulse 75 11/28/17 15:00 Resp 18 11/28/17 15:00 BP 133/66 11/28/17 15:00 Pulse Ox 93 L 11/28/17 15:00 Intake & Output 11/27/17 11/28/17 11/28/17 18:59 06:59 18:59 Weight 83.915 kg Other: Voiding Method Toilet # Voids 3 1 4 - Exam Abdomen: Soft, nondistended, mild tenderness at the parastomal hernia site - Labs CBC & Chem 7: 11/27/17 08:30 11/27/17 08:30 Labs: Microbiology - Last 24 Hours (Table) 11/23/17 03:17 Blood Culture - Preliminary Blood No Growth after 120 hours 11/23/17 23:22 Blood Culture - Preliminary Blood No Growth after 96 hours 11/23/17 22:35 Blood Culture - Preliminary Blood No Growth after 96 hours Assessment and Plan (1) Abdominal pain Narrative/Plan: Continue low fiber diet. Follow-up as outpatient. Current Visit: No Status: Acute Code(s): R10.9 - UNSPECIFIED ABDOMINAL PAIN SNOMED Code(s): 49575789
== END 2017-11-28 17:16 | disposition home health service (06) | DRG 389 ==
LOC: EC 02:53 → 4MS4W 05:13
PROVIDERS: ADMIT Family Medicine; ATTEND Family Medicine
PROC: 0D9670Z Drainage of Stomach with Drainage Device, Via Natural or Artificial Opening (ICD-10-PCS; principal; 2017-11-23)
PROC: 0DJD8ZZ Inspection of Lower Intestinal Tract, Via Natural or Artificial Opening Endoscopic (ICD-10-PCS; 2017-11-26)
PROC: 0DB68ZX Excision of Stomach, Via Natural or Artificial Opening Endoscopic, Diagnostic (ICD-10-PCS; 2017-11-26 07:30)
DX: K56.7 Ileus, unspecified (principal); F11.20 Opioid dependence, uncomplicated; K57.32 Diverticulitis of large intestine without perforation or abscess without bleeding; D69.6 Thrombocytopenia, unspecified; I10 Essential (primary) hypertension; K21.9 Gastro-esophageal reflux disease without esophagitis; J44.9 Chronic obstructive pulmonary disease, unspecified; J10.1 Influenza due to other identified influenza virus with other respiratory manifestations; K52.9 Noninfective gastroenteritis and colitis, unspecified; D72.819 Decreased white blood cell count, unspecified; F41.9 Anxiety disorder, unspecified; G89.29 Other chronic pain; M54.5 Low back pain; K29.60 Other gastritis without bleeding; I25.10 Atherosclerotic heart disease of native coronary artery without angina pectoris; R07.89 Other chest pain; R77.9 Abnormality of plasma protein, unspecified; M19.91 Primary osteoarthritis, unspecified site; I25.2 Old myocardial infarction; F17.210 Nicotine dependence, cigarettes, uncomplicated; Z71.6 Tobacco abuse counseling; Z79.899 Other long term (current) drug therapy; Z86.19 Personal history of other infectious and parasitic diseases; Z87.39 Personal history of other diseases of the musculoskeletal system and connective tissue; Z86.14 Personal history of Methicillin resistant Staphylococcus aureus infection; Z93.3 Colostomy status; Z82.49 Family history of ischemic heart disease and other diseases of the circulatory system; Z80.9 Family history of malignant neoplasm, unspecified
CPT/HCPCS: 36415; 43239; 44388; 71046; 71275; 74018; 74019; 74177; 80048; 80053; 81003; 82150; 83605; 83690; 84132; 84484; 85025; 85027; 85379; 86140; 87040; 87086; 87502; 88305; 93005; 93306; 94760; 96361; 96374; 96375; 96376; 99285

== ENCOUNTER → 2018-01-22 | Outpatient (CLI) | payer MEDICARE, OTHER ==
[2018-01-22 13:46] LABS: Basophils # (A) 0.1 k/uL (0-0.2); Basophils % (A) 1 %; Eosinophils # (A) 0.1 k/uL (0-0.7); Eosinophils % (A) 3 %; HGB 13.7 gm/dL (13.0-17.5); Lymphocytes # (A) 2.2 k/uL (1.0-4.8); Lymphocytes % (A) 41 %; MCH 31.4 pg (25.0-35.0); MCHC 33.5 g/dL (31.0-37.0); MCV 93.7 fL (80.0-100.0); Mean Platelet Volume 8.1; Monocytes # (A) 0.3 k/uL (0-1.0); Monocytes % (A) 5 %; Neutrophils # (A) 2.6 k/uL (1.3-7.7); Neutrophils % (A) 49 %; RBC 4.37 m/uL (4.30-5.90); RDW 14.8 % (11.5-15.5); WBC 5.4 k/uL (3.8-10.6)
[2018-01-22 13:48] LABS: Platelet Count 237 k/uL (150-450)
[2018-01-22 14:22] LABS: Potassium 4.2 mmol/L (3.5-5.1)
== END | disposition home or self-care (01) ==
LOC: LABPAT 13:00
PROVIDERS: ATTEND Surgery
DX: Z01.812 Encounter for preprocedural laboratory examination (principal)
CPT/HCPCS: 36415; 80051; 85025

== ENCOUNTER 2018-01-23 11:59 | Day surgery (SDC) | payer MEDICARE, OTHER ==
[2018-01-21 13:07] VITALS: BMI 26.6
[~2018-01-23 11:59] MED LIST: LACTATED RINGERS 1,000 ML IV SCH
[2018-01-23] MEDS ORDERED: LIDOCAINE 1% 20 ML VIAL (10MG/ML) FOR IV START INTRADERMA ONE (12:36)
[2018-01-23 12:47] VITALS: TEMP 98.1
[2018-01-23] MEDS ORDERED: LIDOCAINE 1% INJ 10MG/ML (20 ML MDV) ONE (12:50)
[2018-01-23] MEDS ORDERED: PROPOFOL 10 MG/ML 20 ML VIAL IV ONE (12:50)
--- NOTE | 2018-01-23 13:04 | P.GSHP ---
History of Present Illness H&P Date: 01/23/18 Chief Complaint: Change in bowel habits, GI bleed Patient presents today for colonoscopy as a preoperative evaluation for planned colostomy reversal tomorrow. Patient states he is having black colored stools that are liquid in nature. Has diffuse pain including chest abdomen and extremities. He says this is chronic in nature. No bright red blood per ostomy. Past Medical History Past Medical History: Chest Pain / Angina, COPD, Deep Vein Thrombosis (DVT), GERD/Reflux, Hyperlipidemia, Hypertension, Myocardial Infarction ([place]), Osteoarthritis (OA) Additional Past Medical History / Comment(s): History of hepatitis A, chronic pain, gout, "kidneys shut down x2 when sick". Back pain, TIA 2009 Last Myocardial Infarction Date:: 1999 History of Any Multi-Drug Resistant Organisms: MRSA Date of last positivie culture/infection: MDRO Source:: THERESA LEG Past Surgical History: Bowel Resection, Heart Catheterization With Stent, Hernia Repair, Orthopedic Surgery Additional Past Surgical History / Comment(s): Shoulder surgery, hernia, cataracts, pain clinic procedures, colostomy. Past Anesthesia/Blood Transfusion Reactions: No Reported Reaction Date of Last Stent Placement:: 1999 Smoking Status: Current some day smoker - Past Family History Mother Family Medical History: Cancer, Myocardial Infarction ([place]) Father Family Medical History: Myocardial Infarction ([place]) Sister(s) Family Medical History: Cancer Additional Family Medical History / Comment(s): Sisters x2 Medications and Allergies Home Medications Medication Instructions Recorded Confirmed Type Albuterol Inhaler [Ventolin Hfa 2 puff INHALATION RT-Q6H PRN 11/10/17 01/23/18 History Inhaler] Atorvastatin [Lipitor] 80 mg PO HS 11/10/17 01/23/18 History Diclofenac Sodium [Voltaren Gel] 2 gram TOPICAL QID 11/10/17 01/23/18 History Furosemide [Lasix] 40 mg PO DAILY 11/10/17 01/23/18 History Nitroglycerin Sl Tabs [Nitrostat] 0.4 mg SUBLINGUAL Q5M PRN 11/10/17 01/23/18 History clonazePAM [KlonoPIN] 1 mg PO BID 11/10/17 01/23/18 History hydrALAZINE HCL 50 mg PO Q12H 11/10/17 01/23/18 History hydrOXYzine HCL [Atarax] 25 mg PO HS 11/10/17 01/23/18 History Famotidine [Pepcid] 20 mg PO Q12HR #60 tab 11/28/17 01/23/18 Rx metroNIDAZOLE [Flagyl] 500 mg PO Q8HR #30 tab 11/28/17 01/23/18 Rx Aspirin 81 mg PO DAILY 01/21/18 01/23/18 History Atenolol [Tenormin] 50 mg PO DAILY 01/21/18 01/23/18 History Ibuprofen [Advil] 200 mg PO Q8HR PRN 01/21/18 01/23/18 History Pseudoephedrine HCl [Sudafed 12 120 mg PO Q12HR PRN 01/21/18 01/23/18 History Hour] Sucralfate [Carafate] 1 gm PO AC-BID PRN 01/21/18 01/23/18 History oxyCODONE HCL [OxyIR] 20 mg PO Q4H PRN 01/21/18 01/23/18 History Allergies Allergy/AdvReac Type Severity Reaction Status Date / Time No Known Allergies Allergy Verified 01/23/18 12:30 Surgical - Exam Vital Signs Temp Pulse BP Pulse Ox 98.1 F 74 129/80 100 01/23/18 12:36 01/23/18 12:36 01/23/18 12:36 01/23/18 12:36 Physical exam: General: Well-developed, well-nourished HEENT: Normocephalic, sclerae nonicteric Abdomen: Nontender, nondistended, left sided ostomy noted Extremities: No edema Neuro: Alert and oriented Assessment and Plan (1) Diverticulitis of colon with perforation Narrative/Plan: Will proceed with upper and lower endoscopy at this time. Possible colostomy reversal tomorrow. Current Visit: No Status: Acute Code(s): K57.20 - DVTRCLI OF LG INT W PERFORATION AND ABSCESS W/O BLEEDING SNOMED Code(s): 47755164
--- NOTE | 2018-01-23 13:36 | P.PCN ---
Date of Procedure: 01/23/18 Procedure(s) Performed: PREOPERATIVE DIAGNOSIS: GI bleed, change in bowel habits, diverticulitis POSTOPERATIVE DIAGNOSIS: Gastritis, small hiatal hernia, mild diverticulosis, mild proctitis PROCEDURE: 1. EGD with biopsy 2. Colonoscopy ANESTHESIA: [facility] [place] SURGEON: Ubaldo Rodriguez M.D. SPECIMENS: Antrum ENDOSCOPIC PROCEDURE: The patient was on the endoscopy table in the left decubitus position. The Olympus gastroscope was inserted into the oropharynx and passed under direct visualization to the region of the third portion of the duodenum. From that point the scope was slowly withdrawn inspecting all surfaces carefully. There were no neoplastic inflammatory or polypoid lesions throughout the duodenum. The pylorus was widely patent. The stomach was carefully inspected. There was and gastritis present. A biopsy of the antrum took place to rule out H. pylori. Retroflexion revealed a small sliding hiatal hernia. The esophagus was then carefully examined. There were no neoplastic inflammatory or polypoid lesions throughout the visualized esophagus. The patient was kept on the endoscopy table in the left decubitus position. The Olympus colonoscope was inserted into the anus and passed under direct visualization to the proximal rectum/sigmoid. The patient had a large of amount of mucousy stool that was evacuated. There was some mild inflammation seen of the mucosa of the rectum that was likely related to disuse proctitis. I had difficulty visualizing the most proximal aspect of the staple line because of the mucus. The colonoscope was then inserted into the ostomy and passed to the base of the cecum. The appendiceal orifice was visualized. From that point the scope was slowly withdrawn inspecting all surfaces carefully. There were no neoplastic inflammatory or polypoid lesions throughout the cecum, ascending, transverse, and descending colon. There is only mild diverticulosis present. Digital rectal examination was normal. The patient was taken to the recovery room in stable condition per anesthesia guidelines. RECOMMENDATIONS: Increase fiber. Await biopsies results. Tentatively plan colostomy reversal tomorrow.
[2018-01-23 13:42] VITALS: BP 142/79; PULSE 70; RESP 14
== END 2018-01-23 14:05 | disposition home or self-care (01) ==
LOC: ORWHC2ENDO 11:59
PROVIDERS: ATTEND Surgery
DX: K57.30 Diverticulosis of large intestine without perforation or abscess without bleeding (principal); Z93.3 Colostomy status; K29.50 Unspecified chronic gastritis without bleeding; K44.9 Diaphragmatic hernia without obstruction or gangrene; K62.89 Other specified diseases of anus and rectum; K21.9 Gastro-esophageal reflux disease without esophagitis; Z86.19 Personal history of other infectious and parasitic diseases; J44.9 Chronic obstructive pulmonary disease, unspecified; F17.210 Nicotine dependence, cigarettes, uncomplicated; I10 Essential (primary) hypertension; E78.5 Hyperlipidemia, unspecified; M19.90 Unspecified osteoarthritis, unspecified site; G89.29 Other chronic pain; M54.9 Dorsalgia, unspecified; M10.9 Gout, unspecified; Z86.14 Personal history of Methicillin resistant Staphylococcus aureus infection; I25.2 Old myocardial infarction; Z86.73 Personal history of transient ischemic attack (TIA), and cerebral infarction without residual deficits; Z86.718 Personal history of other venous thrombosis and embolism; Z95.5 Presence of coronary angioplasty implant and graft; Z79.2 Long term (current) use of antibiotics; Z79.52 Long term (current) use of systemic steroids; Z79.899 Other long term (current) drug therapy; Z79.82 Long term (current) use of aspirin
CPT/HCPCS: 88305; 44388; 43239; J2001; J2704; 45378

== ENCOUNTER 2018-01-24 07:31 | Inpatient (IN) | payer MEDICARE, OTHER ==
[2018-01-21 15:00] VITALS: BMI 26.6
[~2018-01-24 07:31] MED LIST changes: +ALVIMOPAN 12 MG CAPSULE PO ONE; +HEPARIN SODIUM,PORCINE 5,000 UNIT/ML 1 ML VIAL SQ ONE; -LACTATED RINGERS 1,000 ML IV SCH; +ceFAZolin IN SWFI 2 GM/20 ML SYRINGE IVP ONE; +metroNIDAZOLE-NS PMX 500 MG in SALINE 1 100ML.BAG IVPB ONE
[2018-01-24] MEDS ORDERED: MORPHINE SULFATE 2 MG/ML SYRINGE IV PRN (08:39)
[2018-01-24] MEDS ORDERED: fentaNYL (PF) 50 MCG/ML 2 ML AMP IVP PRN (08:39)
[2018-01-24] MEDS ORDERED: ONDANSETRON 4 MG/2 ML VIAL IVP ONE (08:39)
[2018-01-24] MEDS ORDERED: LIDOCAINE 1% 20 ML VIAL (10MG/ML) FOR IV START INTRADERMA PRN (08:39)
[2018-01-24] MEDS ORDERED: MIDAZOLAM 2 MG/2 ML VIAL IV PRN (08:39)
[2018-01-24] MEDS ORDERED: NALOXONE 0.4 MG/ML 1 ML VIAL IV PRN (08:40)
[2018-01-24] MEDS ORDERED: LIDOCAINE 1% 20 ML VIAL (10MG/ML) FOR IV START INTRADERMA ONE (08:45)
[2018-01-24] MEDS: LACTATED RINGERS 1,000 ML IV SCH (08:45)
[2018-01-24] MEDS ORDERED: DEXAMETHASONE SOD PHOSPHATE 10 MG/ML 1 ML VIAL IV ONE (08:55)
--- NOTE | 2018-01-24 09:01 | P.GSHP ---
History of Present Illness H&P Date: 01/24/18 Chief Complaint: Perforated diverticulitis Patient here today for colostomy reversal. He underwent colonoscopy yesterday which showed no significant abnormalities. Patient had a perforation last year from diverticulitis. The patient has a history of chronic pain. He was having some dark colored stools although upper endoscopy showed no evidence of bleeding yesterday. Past Medical History Past Medical History: Chest Pain / Angina, COPD, Deep Vein Thrombosis (DVT), GERD/Reflux, Hyperlipidemia, Hypertension, Myocardial Infarction ([place]), Osteoarthritis (OA) Additional Past Medical History / Comment(s): History of hepatitis A, chronic pain, gout, "kidneys shut down x2 when sick". Back pain, TIA 2009 Last Myocardial Infarction Date:: 1999 History of Any Multi-Drug Resistant Organisms: MRSA Date of last positivie culture/infection: MDRO Source:: THERESA LEG Past Surgical History: Bowel Resection, Heart Catheterization With Stent, Hernia Repair, Orthopedic Surgery Additional Past Surgical History / Comment(s): Shoulder surgery, hernia, cataracts, pain clinic procedures, colostomy. Past Anesthesia/Blood Transfusion Reactions: No Reported Reaction Date of Last Stent Placement:: 1999 Smoking Status: Current some day smoker - Past Family History Mother Family Medical History: Cancer, Myocardial Infarction ([place]) Father Family Medical History: Myocardial Infarction ([place]) Sister(s) Family Medical History: Cancer Additional Family Medical History / Comment(s): Sisters x2 Medications and Allergies Home Medications Medication Instructions Recorded Confirmed Type Albuterol Inhaler [Ventolin Hfa 2 puff INHALATION RT-Q6H PRN 11/10/17 01/23/18 History Inhaler] Atorvastatin [Lipitor] 80 mg PO HS 11/10/17 01/23/18 History Diclofenac Sodium [Voltaren Gel] 2 gram TOPICAL QID 11/10/17 01/23/18 History Furosemide [Lasix] 40 mg PO DAILY 11/10/17 01/23/18 History Nitroglycerin Sl Tabs [Nitrostat] 0.4 mg SUBLINGUAL Q5M PRN 11/10/17 01/24/18 History clonazePAM [KlonoPIN] 1 mg PO BID 11/10/17 01/23/18 History hydrALAZINE HCL 50 mg PO Q12H 11/10/17 01/23/18 History hydrOXYzine HCL [Atarax] 25 mg PO HS 11/10/17 01/23/18 History Famotidine [Pepcid] 20 mg PO Q12HR #60 tab 11/28/17 01/23/18 Rx metroNIDAZOLE [Flagyl] 500 mg PO Q8HR #30 tab 11/28/17 01/23/18 Rx Aspirin 81 mg PO DAILY 01/21/18 01/23/18 History Atenolol [Tenormin] 50 mg PO DAILY 01/21/18 01/23/18 History Ibuprofen [Advil] 200 mg PO Q8HR PRN 01/21/18 01/23/18 History Pseudoephedrine HCl [Sudafed 12 120 mg PO Q12HR PRN 01/21/18 01/23/18 History Hour] Sucralfate [Carafate] 1 gm PO AC-BID PRN 01/21/18 01/23/18 History oxyCODONE HCL [OxyIR] 20 mg PO Q4H PRN 01/21/18 01/23/18 History Allergies Allergy/AdvReac Type Severity Reaction Status Date / Time No Known Allergies Allergy Verified 01/24/18 08:15 Surgical - Exam Vital Signs Temp Pulse Resp BP Pulse Ox 98.2 F 69 16 116/73 99 01/24/18 08:45 01/24/18 08:45 01/24/18 08:45 01/24/18 08:45 01/24/18 08:45 Physical exam: General: Well-developed, well-nourished HEENT: Normocephalic, sclerae nonicteric Abdomen: Nontender, nondistended, left-sided ostomy noted Extremities: No edema Neuro: Alert and oriented Assessment and Plan (1) Diverticulitis of colon with perforation Narrative/Plan: Will proceed with colostomy reversal today. Risks of bleeding, infection, leak , abscess, ureteral injury, erectile dysfunction, abscess, hernia, need for permanent and/or temporary ostomy, respiratory and cardiac complications and he understands and wishes to proceed. Current Visit: No Status: Acute Code(s): K57.20 - DVTRCLI OF LG INT W PERFORATION AND ABSCESS W/O BLEEDING SNOMED Code(s): 37065250
[2018-01-24 09:05] LABS: Potassium 3.4 mmol/L (3.5-5.1)
[2018-01-24] MEDS ORDERED: VECURONIUM 10 MG VIAL IV ONE (09:32)
[2018-01-24] MEDS ORDERED: MIDAZOLAM 2 MG/2 ML VIAL ONE (09:32)
[2018-01-24] MEDS ORDERED: PROPOFOL 10 MG/ML 20 ML VIAL IV ONE (09:32)
[2018-01-24] MEDS ORDERED: NEOSTIGMINE 1 MG/ML 10 ML VIAL ONE (09:32)
[2018-01-24] MEDS ORDERED: fentaNYL (PF) 50 MCG/ML 2 ML AMP ONE (09:32)
[2018-01-24] MEDS ORDERED: GLYCOPYRROLATE 0.2 MG/ML 2 ML VIAL ONE (09:32)
[2018-01-24] MEDS ORDERED: SUCCINYLCHOLINE CHLORIDE 100 MG/5 ML SYR IV ONE (09:32)
[2018-01-24] MEDS ORDERED: LIDOCAINE 1% INJ 10MG/ML (20 ML MDV) ONE (09:32)
[2018-01-24] MEDS ORDERED: LACTATED RINGERS 1,000 ML IV ONE ×2 (10:29→11:38)
[2018-01-24] MEDS ORDERED: ONDANSETRON 4 MG/2 ML VIAL IVP PRN (12:24)
[2018-01-24] MEDS ORDERED: METOCLOPRAMIDE 5 MG/ML 2 ML VIAL IVP PRN (12:24)
[2018-01-24] MEDS: ROPIVACAINE 250 MG, HYDROMORPHONE (PF) 5 MG in SODIUM CHLORIDE 0.9% 200 ML EPIDURAL PRN (12:30)
--- NOTE | 2018-01-24 12:53 | P.OP ---
Date of Procedure: 01/24/18 Procedure(s) Performed: PREOPERATIVE DIAGNOSIS: Diverticulitis POSTOPERATIVE DIAGNOSIS: Same PROCEDURE: Colostomy reversal, partial omentectomy, repair umbilical hernia SURGEON: Jennifer EBL: 150 mL ANESTHESIA: General COMPLICATIONS: None OPERATIVE PROCEDURE: Patient place in the operative table in the supine position. The patient was placed under general anesthesia. The patient was then placed in lithotomy. The stoma was closed using a pursestring 2-0 Vicryl stitch. The abdomen was prepped and draped in usual sterile fashion. An elliptical incision was made around the colostomy. Dissection through the subcutaneous fat took place using electrocautery. Entrance into the peritoneal cavity took place. The stoma was fully mobilized and reduced back into the peritoneal cavity. At that time a vertical incision was made using a scalpel. The umbilical hernia defect was incorporated into the incision. The fascia was divided using cautery as well. The Bookwalter retractor was utilized. The patient had adhesions in the abdominal cavity that were lysed using both sharp and blunt and electrocautery. Portion of the omentum was resected using the LigaSure device. The bowel was reduced back into the upper abdomen. The anticipated site of resection of the sigmoid colon appeared to reach into the pelvis without tension. Attention was then directed to the rectal stump. An additional 5 cm of so of the distal sigmoid colon and proximal rectum was excised at that time using both the LigaSure and a contour stapler. At that time the colon proximal to the stoma was carefully dissected. A site was chosen for division of the bowel at that location. The bowel was divided using a linear 75 stapler. The fatty tissue around theThe extra colonic tissue at the stoma was removed. The sizers were utilized. The 29 EEA was chosen. The anvil was advanced into the lumen of the bowel and the pursestring was tied down. The stapler was then inserted into the anus and brought up to the staple line. The obturator was brought out anterior to the staple line. The 2 portions of the stapler were connected to one another and subsequently tightened and fired. The bowel was clamped proximal to the anastomosis. The rigid sigmoidoscope was utilized to fill the anastomotic site nicely with air. There was saline in the pelvis at this time. No evidence of leak was seen. The abdomen was irrigated with saline. The liver, stomach, visualized colon, and small bowel appeared normal. The midline fascia was then reapproximated using 2 separate double-stranded #1 PDS sutures. The fascia at the stoma site was reapproximated using [id number] Ethibond sutures in a horizontal fashion. The subcutaneous tissues were closed using 2-0 Vicryl sutures. The subcutaneous tissues were closed using 3-0 Vicryl sutures. The skin was then closed using felix. Sterile dressings were then applied. DISPOSITION: Stable to recovery room
[2018-01-24] MEDS: D5-0.45% NACL WITH KCL 20MEQ/L 1,000 ML IV SCH ×3 (14:10→23:26)
[2018-01-24] MEDS: HEPARIN SODIUM,PORCINE 5,000 UNIT/ML 1 ML VIAL SQ SCH ×2 (16:55→23:25)
[2018-01-24] MEDS ORDERED: SUCRALFATE 1 GM TAB PO PRN (22:42)
[2018-01-24] MEDS ORDERED: NITROGLYCERIN SL TABS 0.4 MG TAB SUBLINGUAL PRN (22:42)
[2018-01-24] MEDS ORDERED: ALBUTEROL NEBULIZED 2.5 MG/3 ML INHALATION PRN (22:42)
[2018-01-24] MEDS: ZOLPIDEM 5 MG TAB PO PRN (23:25)
[2018-01-24] MEDS: clonazePAM 1 MG TAB PO SCH (23:25)
[2018-01-24] MEDS: FAMOTIDINE 20 MG/2 ML VIAL IV SCH (23:26)
[2018-01-24] MEDS: hydrALAZINE HCL 50 MG TAB PO SCH (23:46)
[2018-01-25] MEDS: HYDROmorphone 0.5 MG/0.5 ML SYRINGE IVP PRN ×4 (05:17→22:29)
[2018-01-25] MEDS: ROPIVACAINE 250 MG, HYDROMORPHONE (PF) 5 MG in SODIUM CHLORIDE 0.9% 200 ML EPIDURAL PRN ×2 (05:23→10:26)
[2018-01-25] MEDS ORDERED: FUROSEMIDE 40 MG TAB PO SCH (09:00)
[2018-01-25] MEDS ORDERED: ATENOLOL 50 MG TAB PO SCH (09:00)
[2018-01-25] MEDS: ALVIMOPAN 12 MG CAPSULE PO SCH ×2 (09:10→20:52)
[2018-01-25] MEDS: clonazePAM 1 MG TAB PO SCH ×2 (09:10→20:58)
[2018-01-25] MEDS: HEPARIN SODIUM,PORCINE 5,000 UNIT/ML 1 ML VIAL SQ SCH ×2 (09:11→16:21)
[2018-01-25] MEDS: FAMOTIDINE 20 MG/2 ML VIAL IV SCH ×2 (09:11→20:52)
[2018-01-25] MEDS: D5-0.45% NACL WITH KCL 20MEQ/L 1,000 ML IV SCH ×2 (10:22→19:23)
--- NOTE | 2018-01-25 10:25 | XR ---
EXAMINATION TYPE: XR chest 1V DATE OF EXAM: 01/25/2018 COMPARISON: Prior chest 11/23/2017 HISTORY: Shortness of breath TECHNIQUE: Single frontal view of the chest is obtained. FINDINGS: Lucency present beneath the right hemidiaphragm. Lung volumes are low and the patient is s howing expiratory technique. No evident pneumothorax. Patchy basilar density noted. Heart size appear s prominently. IMPRESSION: Correlate for possible pneumoperitoneum. Basilar atelectasis. Heart may be enlarged. Rep ort relayed telephonically to Hailey at the time of interpretation at exam, patient's nurse.
[2018-01-25] MEDS: hydrALAZINE HCL 50 MG TAB PO SCH ×2 (10:36→22:29)
[2018-01-25 10:54] LABS: Basophils % (A) 0 %; Eosinophils # (A) 0.1 k/uL (0-0.7); Eosinophils % (A) 1 %; HCT 39.7 % (39.0-53.0); HGB 12.9 gm/dL (13.0-17.5); Lymphocytes # (A) 2.4 k/uL (1.0-4.8); Lymphocytes % (A) 28 %; MCH 30.9 pg (25.0-35.0); MCHC 32.5 g/dL (31.0-37.0); MCV 94.9 fL (80.0-100.0); Mean Platelet Volume 8.1; Monocytes # (A) 0.3 k/uL (0-1.0); Monocytes % (A) 4 %; Neutrophils # (A) 5.8 k/uL (1.3-7.7); Neutrophils % (A) 66 %; Platelet Count 182 k/uL (150-450); RBC 4.19 m/uL (4.30-5.90); RDW 14.7 % (11.5-15.5); WBC 8.8 k/uL (3.8-10.6)
[2018-01-25 11:09] LABS: ALT 38 U/L (21-72); AST 24 U/L (17-59); Alkaline Phosphatase 72 U/L (38-126); Anion Gap 8 mmol/L; Blood Urea Nitrogen 5 mg/dL (9-20); Calcium 8.4 mg/dL (8.4-10.2); Carbon Dioxide 24 mmol/L (22-30); Chloride 105 mmol/L (98-107); Glucose 109 mg/dL (74-99); Sodium 137 mmol/L (137-145); Total Bilirubin 0.4 mg/dL (0.2-1.3); Total Protein 5.6 g/dL (6.3-8.2)
--- NOTE | 2018-01-25 11:12 | P.CONS ---
History of Present Illness - Reason for Consult recommendationsregarding diuretic therapy. - History of Present Illness 57-year-old male admitted for elective reversal of colostomy patient's x-ray underwent surgery is comparing of pain in the abdominal area diffuse pain which he does have all the time. Patient denied any fever chills patient did not pass gas yet did not move his bowels yet. Patient is on diuretic therapy which will be held as he is receiving receiving IV fluids are do not see any history of cancer on failure although patient uses Lasix at home. We'll closely monitor will also obtain a chest x-ray make sure patient doesn't have any pulmonary edema. We'll obtain a basic metabolic profile in the and a CBC as well. Review of Systems REVIEW OF SYSTEMS: CONSTITUTIONAL: No fever, no malaise, no fatigue. HEENT: No recent visual problems or hearing problems. Denied any sore throat. CARDIOVASCULAR: No chest pain, orthopnea, PND, no palpitations, no syncope. PULMONARY: No shortness of breath, no cough, no hemoptysis. GASTROINTESTINAL: No diarrhea, no nausea, no vomiting, . Normoactive bowel sounds. NEUROLOGICAL: No headaches, no weakness, no numbness. HEMATOLOGICAL: Denies any bleeding or petechiae. GENITOURINARY: Denies any burning micturition, frequency, or urgency. MUSCULOSKELETAL/RHEUMATOLOGICAL: Denies any joint pain, swelling, or any muscle pain. ENDOCRINE: Denies any polyuria or polydipsia. The rest of the 14-point review of systems is negative. Past Medical History Past Medical History: Chest Pain / Angina, COPD, Deep Vein Thrombosis (DVT), GERD/Reflux, Hyperlipidemia, Hypertension, Myocardial Infarction (RI), Osteoarthritis (OA) Additional Past Medical History / Comment(s): History of hepatitis A, chronic pain, gout, "kidneys shut down x2 when sick". Back pain, TIA 2009 Last Myocardial Infarction Date:: 1999 History of Any Multi-Drug Resistant Organisms: MRSA Year Discovered:: 2016 MDRO Source:: face MRSA Past Surgical History: Bowel Resection, Heart Catheterization With Stent, Hernia Repair, Orthopedic Surgery Additional Past Surgical History / Comment(s): Shoulder surgery, hernia, cataracts, pain clinic procedures, colostomy. Past Anesthesia/Blood Transfusion Reactions: No Reported Reaction Date of Last Stent Placement:: 1999 Past Psychological History: Anxiety, Depression Smoking Status: Current some day smoker Past Alcohol Use History: Daily Additional Past Alcohol Use History / Comment(s): STARTED SMOKING AT AGE 18 QUIT FOR 10 MONTHS- SMOKES 3/4 PPD. DRINKS 3 DRINKS A DAY Past Drug Use History: None Reported - Past Family History Mother Family Medical History: Cancer, Myocardial Infarction (RI) Father Family Medical History: Myocardial Infarction (RI) Sister(s) Family Medical History: Cancer Additional Family Medical History / Comment(s): Sisters x2 Medications and Allergies Home Medications Medication Instructions Recorded Confirmed Type Albuterol Inhaler [Ventolin Hfa 2 puff INHALATION RT-Q6H PRN 11/10/17 01/24/18 History Inhaler] Atorvastatin [Lipitor] 80 mg PO HS 11/10/17 01/24/18 History Diclofenac Sodium [Voltaren Gel] 2 gram TOPICAL QID 11/10/17 01/24/18 History Furosemide [Lasix] 40 mg PO DAILY 11/10/17 01/24/18 History Nitroglycerin Sl Tabs [Nitrostat] 0.4 mg SUBLINGUAL Q5M PRN 11/10/17 01/24/18 History clonazePAM [KlonoPIN] 1 mg PO BID 11/10/17 01/24/18 History hydrALAZINE HCL 50 mg PO Q12H 11/10/17 01/24/18 History hydrOXYzine HCL [Atarax] 25 mg PO HS 11/10/17 01/24/18 History Famotidine [Pepcid] 20 mg PO Q12HR #60 tab 11/28/17 01/24/18 Rx metroNIDAZOLE [Flagyl] 500 mg PO Q8HR #30 tab 11/28/17 01/24/18 Rx Aspirin 81 mg PO DAILY 01/21/18 01/24/18 History Ibuprofen [Advil] 200 mg PO Q8HR PRN 01/21/18 01/24/18 History Pseudoephedrine HCl [Sudafed 12 120 mg PO Q12HR PRN 01/21/18 01/24/18 History Hour] Sucralfate [Carafate] 1 gm PO AC-BID PRN 01/21/18 01/24/18 History Atenolol [Tenormin] 50 mg PO DAILY 01/24/18 01/24/18 History oxyCODONE HCL 20 mg PO Q4H PRN 01/24/18 01/24/18 History Allergies Allergy/AdvReac Type Severity Reaction Status Date / Time No Known Allergies Allergy Verified 01/24/18 12:37 Physical Exam Vitals: Vital Signs Temp Pulse Pulse Resp BP Pulse Ox 01/25/18 06:09 50 L 22 130/63 100 01/24/18 21:35 97.9 F 68 18 139/65 97 01/24/18 21:00 20 01/24/18 14:50 60 122/57 100 01/24/18 14:35 60 131/56 100 01/24/18 14:20 55 L 138/65 100 01/24/18 14:05 98.4 F 55 L 15 115/60 100 01/24/18 13:15 56 L 16 146/73 99 01/24/18 13:02 54 L 16 149/72 100 01/24/18 12:47 57 L 16 152/72 100 01/24/18 12:41 62 16 146/72 100 01/24/18 12:26 96.8 F L 65 16 150/72 100 Intake and Output 01/24/18 01/25/18 01/25/18 22:59 06:59 14:59 Intake Total 50.5 Output Total 800 Balance -800 50.5 Intake: Intake, IV Titration 50.5 Amount Ropivacaine 250 mg 50.5 Hydromorphone (Pf) 5 mg In Sodium Chloride 0.9% 200 ml @ Per Protocol EPIDURAL .Q0M PRN Rx#: [id number] Output: Urine 800 Other: Voiding Method Indwelling Catheter Indwelling Catheter Indwelling Catheter # Voids 1 Weight 77.111 kg PHYSICAL EXAMINATION: GENERAL: The patient is alert and oriented x3, not in any acute distress. Well developed, well nourished. HEENT: Pupils are round and equally reacting to light. EOMI. No scleral icterus. No conjunctival pallor. Normocephalic, atraumatic. No pharyngeal erythema. No thyromegaly. CARDIOVASCULAR: S1 and S2 present. No murmurs, rubs, or gallops. PULMONARY: Chest is clear to auscultation, no wheezing or crackles. ABDOMEN: Soft, surgical site areas appear to be clean. Sluggish bowel sounds MUSCULOSKELETAL: No joint swelling or deformity. EXTREMITIES: No cyanosis, clubbing, or pedal edema. NEUROLOGICAL: Gross neurological examination did not reveal any focal deficits. SKIN: No rashes. Results CBC & Chem 7: 01/25/18 10:35 01/24/18 08:30 Labs: Abnormal Lab Results - Last 24 Hours (Table) 01/25/18 Range/Units 10:35 RBC 4.19 L (4.30-5.90) m/uL Hgb 12.9 L (13.0-17.5) gm/dL Assessment and Plan Plan: -status post reversal of colostomy postoperative day one: Pain management due to prophylaxis per primary service. -Hypertension: Patient is mildly bradycardic blood pressures are essentially within normal notes will cut down the dose of atenolol -History of DVT in the past -COPD without any acute exacerbation -Hyperlipidemia -Osteoarthritis. -Coronary artery disease with the stents in the past. For above-mentioned chronic medical problems patient will be resumed on appropriate medications medication reconciliation was reviewed and the corrections were made as needed.
--- NOTE | 2018-01-25 12:01 | P.PN ---
Subjective Progress Note Date: 01/25/18 Principal diagnosis: Diverticulitis Patient 1 day postop from colostomy reversal. Overall doing relatively well. Pain is controlled relatively speaking. The patient has significant chronic discomforts throughout his body. White blood cell count and hemoglobin stable. Tolerating clears. No bowel function. Asking to ambulate. Objective - Vital Signs Vital signs: Vital Signs Temp 97.9 F 01/24/18 21:35 Pulse 50 L 01/25/18 06:09 Resp 22 01/25/18 06:09 BP 130/63 01/25/18 06:09 Pulse Ox 100 01/25/18 06:09 Intake & Output 01/24/18 01/25/18 01/25/18 18:59 06:59 18:59 Intake Total 2400 64.333 Output Total 485 800 Balance 1915 -800 64.333 Weight 77.111 kg Intake: IV 2400 Intake, IV Titration 64.333 Amount Ropivacaine 250 mg 64.333 Hydromorphone (Pf) 5 mg In Sodium Chloride 0.9% 200 ml @ Per Protocol EPIDURAL .Q0M PRN Rx#: [id number] Output: Urine 335 800 Estimated Blood Loss 150 Other: Voiding Method Indwelling Catheter Indwelling Catheter Indwelling Catheter # Voids 1 - Exam Abdomen: Soft, nondistended, mild tenderness, incisions clean and dry - Labs CBC & Chem 7: 01/25/18 10:35 01/25/18 10:35 Labs: Abnormal Lab Results - Last 24 Hours (Table) 01/25/18 01/25/18 Range/Units 10:35 10:35 RBC 4.19 L (4.30-5.90) m/uL Hgb 12.9 L (13.0-17.5) gm/dL BUN 5 L (9-20) mg/dL Creatinine 0.50 L (0.66-1.25) mg/dL Glucose 109 H (74-99) mg/dL Total Protein 5.6 L (6.3-8.2) g/dL Albumin 3.0 L (3.5-5.0) g/dL Assessment and Plan (1) Diverticulitis of colon with perforation Narrative/Plan: Slowly advance diet as tolerated. Ambulate. Abdominal binder. Repeat labs tomorrow. Current Visit: No Status: Acute Code(s): K57.20 - DVTRCLI OF LG INT W PERFORATION AND ABSCESS W/O BLEEDING SNOMED Code(s): 82431762
[2018-01-25] MEDS: LACTATED RINGERS 1,000 ML IV SCH (19:23)
[2018-01-25] MEDS: hydrOXYzine HCL 25 MG TAB PO SCH (20:52)
[2018-01-25] MEDS: ATORVASTATIN 80 MG TAB PO SCH (20:52)
[2018-01-26] MEDS: HEPARIN SODIUM,PORCINE 5,000 UNIT/ML 1 ML VIAL SQ SCH ×4 (00:37→23:47)
[2018-01-26] MEDS: ROPIVACAINE 250 MG, HYDROMORPHONE (PF) 5 MG in SODIUM CHLORIDE 0.9% 200 ML EPIDURAL PRN (03:10)
[2018-01-26] MEDS: D5-0.45% NACL WITH KCL 20MEQ/L 1,000 ML IV SCH ×3 (04:58→23:47)
--- NOTE | 2018-01-26 08:29 | P.PN ---
Subjective Progress Note Date: 01/26/18 Principal diagnosis: Diverticulitis Patient complaining of generalized aches and pains. States his fingers hurt his back hurts his neck hurts. Is having some abdominal pain as well. Epidural seems to be controlling his abdominal pain fairly well. Labs are pending. He is afebrile. No bowel activity. Objective - Vital Signs Vital signs: Vital Signs Temp 97.5 F L 01/26/18 07:02 Pulse 61 01/26/18 07:02 Resp 18 01/26/18 07:28 BP 129/72 01/26/18 07:02 Pulse Ox 97 01/26/18 07:02 Intake & Output 01/25/18 01/26/18 01/26/18 18:59 06:59 18:59 Intake Total 409.813 5401.2 Output Total 1000 1750 Balance -335.667 434.2 Weight 77.111 kg Intake: Intake, IV Titration 64.333 2184.2 Amount D5-0.45% NaCl with KCl 2000 20Meq/l 1,000 ml @ 125 mls/hr IV .Q8H [facility] Rx#: [id number] Ropivacaine 250 mg 64.333 184.2 Hydromorphone (Pf) 5 mg In Sodium Chloride 0.9% 200 ml @ Per Protocol EPIDURAL .Q0M PRN Rx#: [id number] Oral 600 Output: Urine 1000 1750 Other: Voiding Method Indwelling Catheter Indwelling Catheter Indwelling Catheter - Exam Abdomen: Soft, nondistended, incisions clean dry - Labs CBC & Chem 7: 01/25/18 10:35 01/25/18 10:35 Labs: Abnormal Lab Results - Last 24 Hours (Table) 01/25/18 01/25/18 Range/Units 10:35 10:35 RBC 4.19 L (4.30-5.90) m/uL Hgb 12.9 L (13.0-17.5) gm/dL BUN 5 L (9-20) mg/dL Creatinine 0.50 L (0.66-1.25) mg/dL Glucose 109 H (74-99) mg/dL Total Protein 5.6 L (6.3-8.2) g/dL Albumin 3.0 L (3.5-5.0) g/dL Assessment and Plan (1) Diverticulitis of colon with perforation Narrative/Plan: Await morning labs. Ambulate. Continue full liquids for now. Current Visit: No Status: Acute Code(s): K57.20 - DVTRCLI OF LG INT W PERFORATION AND ABSCESS W/O BLEEDING SNOMED Code(s): 99276503
[2018-01-26] MEDS: FAMOTIDINE 20 MG/2 ML VIAL IV SCH ×2 (08:45→20:22)
[2018-01-26] MEDS: ALVIMOPAN 12 MG CAPSULE PO SCH ×2 (08:47→20:21)
[2018-01-26] MEDS: ATENOLOL 25 MG TAB PO SCH (08:47)
[2018-01-26] MEDS: LACTATED RINGERS 1,000 ML IV SCH (08:53)
[2018-01-26] MEDS: clonazePAM 1 MG TAB PO SCH ×2 (08:55→23:49)
--- NOTE | 2018-01-26 09:15 | P.PN ---
Progress Note - Text 01/25 153 57-year-old male status post colostomy reversal by Dr. Rodriguez. Patient has an epidural catheter for postop control, who was increased to 12 mL an hour and also has IV Dilaudid for breakthrough pain. He was out of bed and sitting in a chair with a pain score of 7. Plan to continue epidural infusion
[2018-01-26] MEDS: hydrALAZINE HCL 50 MG TAB PO SCH ×2 (10:44→23:47)
[2018-01-26] MEDS: HYDROmorphone 0.5 MG/0.5 ML SYRINGE IVP PRN ×4 (11:09→20:18)
--- NOTE | 2018-01-26 11:18 | P.PN ---
Subjective Patient is still complaining of abdominal pain. He did not move his bowel or pass gas as per the patient. Patient does have significant wheezing on exam patient will be started on inhaled steroid. Objective - Vital Signs Vital signs: Vital Signs Temp 97.5 F L 01/26/18 07:02 Pulse 60 01/26/18 10:45 Resp 18 01/26/18 10:45 BP 127/60 01/26/18 10:45 Pulse Ox 99 01/26/18 10:45 Intake & Output 01/25/18 01/26/18 01/26/18 18:59 06:59 18:59 Intake Total 671.465 3306.2 100 Output Total 1000 1750 Balance -335.667 434.2 100 Weight 77.111 kg Intake: Intake, IV Titration 64.333 2184.2 Amount D5-0.45% NaCl with KCl 2000 20Meq/l 1,000 ml @ 125 mls/hr IV .Q8H [facility] Rx#: [id number] Ropivacaine 250 mg 64.333 184.2 Hydromorphone (Pf) 5 mg In Sodium Chloride 0.9% 200 ml @ Per Protocol EPIDURAL .Q0M PRN Rx#: [id number] Oral 600 100 Output: Urine 1000 1750 Other: Voiding Method Indwelling Catheter Indwelling Catheter Indwelling Catheter - Exam PHYSICAL EXAMINATION: GENERAL: The patient is alert and oriented x3, not in any acute distress. Well developed, well nourished. HEENT: Pupils are round and equally reacting to light. EOMI. No scleral icterus. No conjunctival pallor. Normocephalic, atraumatic. No pharyngeal erythema. No thyromegaly. CARDIOVASCULAR: S1 and S2 present. No murmurs, rubs, or gallops. PULMONARY: Patient does have expiratory wheezing, rhonchorous breath sounds. ABDOMEN: Soft, surgical site areas appear to be clean. Sluggish bowel sounds MUSCULOSKELETAL: No joint swelling or deformity. EXTREMITIES: No cyanosis, clubbing, or pedal edema. NEUROLOGICAL: Gross neurological examination did not reveal any focal deficits. SKIN: No rashes. - Labs CBC & Chem 7: 01/25/18 10:35 01/25/18 10:35 Labs: Abnormal Lab Results - Last 24 Hours (Table) 01/25/18 Range/Units 10:35 BUN 5 L (9-20) mg/dL Creatinine 0.50 L (0.66-1.25) mg/dL Glucose 109 H (74-99) mg/dL Total Protein 5.6 L (6.3-8.2) g/dL Albumin 3.0 L (3.5-5.0) g/dL Assessment and Plan Plan: -status post reversal of colostomy postoperative day one: Pain management due to prophylaxis per primary service. -Hypertension: Continue with atenolol at present dose -History of DVT in the past -COPD with minimal exacerbation further management as mentioned above -Hyperlipidemia -Osteoarthritis. -Coronary artery disease with the stents in the past. For above-mentioned chronic medical problems patient will be resumed on appropriate medications medication reconciliation was reviewed and the corrections were made as needed.
[2018-01-26 12:03] LABS: Basophils % (A) 1 %; Eosinophils # (A) 0.1 k/uL (0-0.7); Eosinophils % (A) 2 %; HCT 38.7 % (39.0-53.0); HGB 12.8 gm/dL (13.0-17.5); Lymphocytes # (A) 2.6 k/uL (1.0-4.8); Lymphocytes % (A) 44 %; MCH 31.2 pg (25.0-35.0); MCV 94.4 fL (80.0-100.0); Mean Platelet Volume 8.5; Monocytes # (A) 0.3 k/uL (0-1.0); Monocytes % (A) 5 %; Neutrophils # (A) 2.8 k/uL (1.3-7.7); Neutrophils % (A) 47 %; Platelet Count 194 k/uL (150-450); RDW 14.8 % (11.5-15.5); WBC 5.9 k/uL (3.8-10.6)
[2018-01-26 12:04] LABS: Anion Gap 6 mmol/L; Blood Urea Nitrogen 3 mg/dL (9-20); Calcium 8.1 mg/dL (8.4-10.2); Carbon Dioxide 24 mmol/L (22-30); Chloride 108 mmol/L (98-107); Glucose 98 mg/dL (74-99); Potassium 3.9 mmol/L (3.5-5.1); Sodium 138 mmol/L (137-145)
[2018-01-26] MEDS: IPRATROPIUM-ALBUTEROL 3 ML NEB INHALATION SCH ×3 (13:31→19:14)
--- NOTE | 2018-01-26 18:47 | P.PN ---
Progress Note - Text 01/26 1800 57-year-old male status post colostomy reversal by Dr. Rodriguez. Patient has an epidural catheter running at 12 mL an hour with IV Dilaudid for breakthrough pain. Patient was found sound asleep in his bed, on examination he immediately started complaining of pain which was 10 out of 10. Patient has significant history of narcotic use and I am not sure if increasing any of the medication would be of any help him. I did talk to the nurse who stated that he was usually sleeping throughout the day but when questioned,always complained of VAS of 10 over 10. Plan to continue epidural infusion and DC the catheter in the morning
[2018-01-26] MEDS: SYMBICORT 160-4.5 MCG INHALER INHALATION SCH (19:14)
[2018-01-26] MEDS: ATORVASTATIN 80 MG TAB PO SCH (20:21)
[2018-01-26] MEDS: hydrOXYzine HCL 25 MG TAB PO SCH (20:21)
[2018-01-27] MEDS: ROPIVACAINE 250 MG, HYDROMORPHONE (PF) 5 MG in SODIUM CHLORIDE 0.9% 200 ML EPIDURAL PRN (01:22)
[2018-01-27] MEDS: HYDROmorphone 0.5 MG/0.5 ML SYRINGE IVP PRN ×4 (02:44→19:48)
[2018-01-27] MEDS: D5-0.45% NACL WITH KCL 20MEQ/L 1,000 ML IV SCH ×3 (04:02→20:48)
[2018-01-27 06:56] LABS: Basophils % (A) 0 %; Eosinophils # (A) 0.1 k/uL (0-0.7); Eosinophils % (A) 2 %; HCT 38.2 % (39.0-53.0); HGB 12.9 gm/dL (13.0-17.5); Lymphocytes # (A) 1.3 k/uL (1.0-4.8); Lymphocytes % (A) 22 %; MCH 31.5 pg (25.0-35.0); MCHC 33.9 g/dL (31.0-37.0); Mean Platelet Volume 8.6; Monocytes # (A) 0.3 k/uL (0-1.0); Monocytes % (A) 5 %; Neutrophils % (A) 69 %; Platelet Count 152 k/uL (150-450); RBC 4.11 m/uL (4.30-5.90); RDW 14.6 % (11.5-15.5); WBC 5.8 k/uL (3.8-10.6)
[2018-01-27 07:09] LABS: Anion Gap 6 mmol/L; Blood Urea Nitrogen 2 mg/dL (9-20); Carbon Dioxide 25 mmol/L (22-30); Chloride 107 mmol/L (98-107); Glucose 105 mg/dL (74-99); Potassium 3.7 mmol/L (3.5-5.1); Sodium 138 mmol/L (137-145)
--- NOTE | 2018-01-27 07:15 | P.PN ---
Progress Note - Text 01/27 756am 57-year-old male status post colostomy reversal by Dr. Rodriguez. She has an epidural catheter for postop pain control with the solution running at 12 mL an hour. His status hasn't changed since yesterday. I informed the nursery DC epidural and contact his surgeon for IV pain medication
--- NOTE | 2018-01-27 07:21 | P.PN ---
Subjective Progress Note Date: 01/27/18 Principal diagnosis: Diverticulitis Patient complaining of generalized aches and pains. No nausea or vomiting. No flatus. White blood cell count normal. Objective - Vital Signs Vital signs: Vital Signs Temp 97.8 F 01/27/18 05:30 Pulse 87 01/27/18 05:30 Resp 17 01/27/18 05:30 BP 158/87 01/27/18 05:30 Pulse Ox 93 L 01/27/18 05:30 Intake & Output 01/26/18 01/27/18 01/27/18 18:59 06:59 18:59 Intake Total 1200 250 Output Total 1000 2400 Balance 200 -2150 Intake: Intake, IV Titration 1000 250 Amount D5-0.45% NaCl with KCl 1000 20Meq/l 1,000 ml @ 125 mls/hr IV .Q8H [facility] Rx#: [id number] Ropivacaine 250 mg 250 Hydromorphone (Pf) 5 mg In Sodium Chloride 0.9% 200 ml @ Per Protocol EPIDURAL .Q0M PRN Rx#: [id number] Oral 200 Output: Urine 1000 2400 Other: Voiding Method Indwelling Catheter Indwelling Catheter - Exam Abdomen: Soft, nondistended, mild tenderness, incision clean and dry - Labs CBC & Chem 7: 01/27/18 06:43 01/27/18 06:43 Labs: Abnormal Lab Results - Last 24 Hours (Table) 01/26/18 01/26/18 01/27/18 Range/Units 11:33 11:33 06:43 RBC 4.10 L 4.11 L (4.30-5.90) m/uL Hgb 12.8 L 12.9 L (13.0-17.5) gm/dL Hct 38.7 L 38.2 L (39.0-53.0) % Chloride 108 H (98-107) mmol/L BUN 3 L (9-20) mg/dL Creatinine 0.48 L (0.66-1.25) mg/dL Glucose (74-99) mg/dL Calcium 8.1 L (8.4-10.2) mg/dL 01/27/18 Range/Units 06:43 RBC (4.30-5.90) m/uL Hgb (13.0-17.5) gm/dL Hct (39.0-53.0) % Chloride (98-107) mmol/L BUN 2 L (9-20) mg/dL Creatinine 0.50 L (0.66-1.25) mg/dL Glucose 105 H (74-99) mg/dL Calcium 8.0 L (8.4-10.2) mg/dL Assessment and Plan (1) Diverticulitis of colon with perforation Narrative/Plan: Ambulate. Continue low fiber diet. Remove Hilario catheter and epidural. Modify pain medications. Current Visit: No Status: Acute Code(s): K57.20 - DVTRCLI OF LG INT W PERFORATION AND ABSCESS W/O BLEEDING SNOMED Code(s): 73861960
[2018-01-27] MEDS: SYMBICORT 160-4.5 MCG INHALER INHALATION SCH ×2 (07:36→19:20)
[2018-01-27] MEDS: IPRATROPIUM-ALBUTEROL 3 ML NEB INHALATION SCH ×4 (07:37→19:19)
--- NOTE | 2018-01-27 07:39 | P.PN ---
Subjective Progress Note Date: 01/27/18 Principal diagnosis: The patient is here essentially because of significant problems related to revision of diverticular disease. The patient is sleeping comfortably 1 awoken , he has significant stated pain. He struggles with opiate dependence. Objective - Vital Signs Vital signs: Vital Signs Temp 97.8 F 01/27/18 05:30 Pulse 87 01/27/18 05:30 Resp 17 01/27/18 05:30 BP 158/87 01/27/18 05:30 Pulse Ox 93 L 01/27/18 05:30 Intake & Output 01/26/18 01/27/18 01/27/18 18:59 06:59 18:59 Intake Total 1200 250 Output Total 1000 2400 Balance 200 -2150 Intake: Intake, IV Titration 1000 250 Amount D5-0.45% NaCl with KCl 1000 20Meq/l 1,000 ml @ 125 mls/hr IV .Q8H [facility] Rx#: [id number] Ropivacaine 250 mg 250 Hydromorphone (Pf) 5 mg In Sodium Chloride 0.9% 200 ml @ Per Protocol EPIDURAL .Q0M PRN Rx#: [id number] Oral 200 Output: Urine 1000 2400 Other: Voiding Method Indwelling Catheter Indwelling Catheter - Constitutional General appearance: Present: average body habitus - EENT Eyes: Absent: abnormal pupil - Neck Neck: Absent: lymphadenopathy - Respiratory Respiratory: bilateral: CTA - Cardiovascular Rhythm: regular Abnormal Heart Sounds: Absent: S3 Gallop - Gastrointestinal General gastrointestinal: Absent: tenderness - Neurologic Neurologic: Present: CNII-XII intact - Labs CBC & Chem 7: 01/27/18 06:43 01/27/18 06:43 Labs: Abnormal Lab Results - Last 24 Hours (Table) 01/26/18 01/26/18 01/27/18 Range/Units 11:33 11:33 06:43 RBC 4.10 L 4.11 L (4.30-5.90) m/uL Hgb 12.8 L 12.9 L (13.0-17.5) gm/dL Hct 38.7 L 38.2 L (39.0-53.0) % Chloride 108 H (98-107) mmol/L BUN 3 L (9-20) mg/dL Creatinine 0.48 L (0.66-1.25) mg/dL Glucose (74-99) mg/dL Calcium 8.1 L (8.4-10.2) mg/dL 01/27/18 Range/Units 06:43 RBC (4.30-5.90) m/uL Hgb (13.0-17.5) gm/dL Hct (39.0-53.0) % Chloride (98-107) mmol/L BUN 2 L (9-20) mg/dL Creatinine 0.50 L (0.66-1.25) mg/dL Glucose 105 H (74-99) mg/dL Calcium 8.0 L (8.4-10.2) mg/dL Assessment and Plan (1) Diverticulitis Current Visit: No Status: Acute Code(s): K57.92 - DVTRCLI OF INTEST, PART UNSP, W/O PERF OR ABSCESS W/O BLEED SNOMED Code(s): 529209803 (2) History of myocardial infarction Current Visit: No Status: Acute Code(s): I25.2 - OLD MYOCARDIAL INFARCTION SNOMED Code(s): 176034978 (3) Morgellons disease Current Visit: No Status: Acute Code(s): L98.8 - OTH DISRD OF THE SKIN AND SUBCUTANEOUS TISSUE SNOMED Code(s): 56784719 (4) Opiate dependence Current Visit: No Status: Acute Code(s): F11.20 - OPIOID DEPENDENCE, UNCOMPLICATED SNOMED Code(s): 01969395 (5) Status post Snehal procedure Current Visit: No Status: Acute Code(s): Z93.3 - COLOSTOMY STATUS SNOMED Code(s): 861964460 Plan: We'll continue to follow normal postop protocol. Titrate pain medication as necessary. Check CBC and CMP in a.m. per Hopefully once the patient tolerates diet with flatus, we can discharge in stable condition. See orders otherwise. Time with Patient: Less than 30
[2018-01-27] MEDS: LACTATED RINGERS 1,000 ML IV SCH (09:44)
[2018-01-27] MEDS: ALVIMOPAN 12 MG CAPSULE PO SCH ×2 (09:54→20:49)
[2018-01-27] MEDS: clonazePAM 1 MG TAB PO SCH ×2 (09:55→22:16)
[2018-01-27] MEDS: FAMOTIDINE 20 MG/2 ML VIAL IV SCH ×2 (09:55→20:50)
[2018-01-27] MEDS: HEPARIN SODIUM,PORCINE 5,000 UNIT/ML 1 ML VIAL SQ SCH ×2 (09:55→16:41)
[2018-01-27] MEDS: ATENOLOL 25 MG TAB PO SCH (09:55)
[2018-01-27] MEDS: oxyCODONE-APAP 7.5-325MG 1 EACH TAB PO PRN ×3 (10:39→20:51)
[2018-01-27] MEDS: hydrALAZINE HCL 50 MG TAB PO SCH ×2 (11:59→22:16)
[2018-01-27] MEDS: KETOROLAC 30 MG/ML 1 ML VIAL IVP SCH ×2 (12:13→16:40)
[2018-01-27] MEDS: ATORVASTATIN 80 MG TAB PO SCH (20:50)
[2018-01-27] MEDS: hydrOXYzine HCL 25 MG TAB PO SCH (20:50)
[2018-01-27] MEDS: ZOLPIDEM 5 MG TAB PO PRN (22:43)
[2018-01-28] MEDS: KETOROLAC 30 MG/ML 1 ML VIAL IVP SCH ×3 (00:05→12:20)
[2018-01-28] MEDS: HEPARIN SODIUM,PORCINE 5,000 UNIT/ML 1 ML VIAL SQ SCH ×2 (00:05→08:23)
[2018-01-28 00:34] VITALS: RESP 18
[2018-01-28] MEDS: oxyCODONE-APAP 7.5-325MG 1 EACH TAB PO PRN ×3 (01:00→12:20)
[2018-01-28] MEDS: HYDROmorphone 0.5 MG/0.5 ML SYRINGE IVP PRN ×2 (03:38→07:36)
[2018-01-28] MEDS: D5-0.45% NACL WITH KCL 20MEQ/L 1,000 ML IV SCH (03:39)
--- NOTE | 2018-01-28 07:20 | P.PN ---
Subjective Progress Note Date: 01/28/18 Principal diagnosis: The patient is a 57-year-old white male essentially with revision of colostomy secondary to diverticular disease. The patient is sleeping comfortably at this point. The patient still has significant complaints of pain however. No flatus as stated. He states he is ambulating slightly. No significant chills or sweats stated. No dysuria noted. Objective - Vital Signs Vital signs: Vital Signs Temp 98.7 F 01/28/18 00:33 Pulse 72 01/28/18 00:33 Resp 18 01/28/18 00:33 BP 170/76 01/28/18 03:47 Pulse Ox 98 01/28/18 00:33 Intake & Output 01/27/18 01/28/18 01/28/18 18:59 06:59 18:59 Intake Total 1298 1400 Output Total 1300 Balance -2 1400 Intake: Intake, IV Titration 938 1400 Amount D5-0.45% NaCl with KCl 938 1400 20Meq/l 1,000 ml @ 125 mls/hr IV .Q8H [facility] Rx#: [id number] Oral 360 Output: Urine 1300 Uretheral (Hilario) 1300 Other: Voiding Method Indwelling Catheter Toilet # Voids 1 2 - Constitutional General appearance: Present: average body habitus - EENT Eyes: Absent: abnormal pupil - Respiratory Respiratory: bilateral: CTA - Cardiovascular Rhythm: regular Heart sounds: normal: S1, S2 Abnormal Heart Sounds: Absent: S3 Gallop - Gastrointestinal General gastrointestinal: Present: soft - Integumentary Integumentary: Present: rash - Neurologic Neurologic: Present: CNII-XII intact - Psychiatric Psychiatric: Present: A&O x's 3 - Labs CBC & Chem 7: 01/27/18 06:43 01/27/18 06:43 Labs: Abnormal Lab Results - Last 24 Hours (Table) 01/27/18 Range/Units 06:43 BUN 2 L (9-20) mg/dL Creatinine 0.50 L (0.66-1.25) mg/dL Glucose 105 H (74-99) mg/dL Calcium 8.0 L (8.4-10.2) mg/dL Assessment and Plan (1) Diverticulitis Current Visit: Yes Status: Acute Code(s): K57.92 - DVTRCLI OF INTEST, PART UNSP, W/O PERF OR ABSCESS W/O BLEED SNOMED Code(s): 156383652 (2) History of myocardial infarction Current Visit: No Status: Acute Code(s): I25.2 - OLD MYOCARDIAL INFARCTION SNOMED Code(s): 134236948 (3) Morgellons disease Current Visit: No Status: Acute Code(s): L98.8 - OTH DISRD OF THE SKIN AND SUBCUTANEOUS TISSUE SNOMED Code(s): 17747610 (4) Opiate dependence Current Visit: No Status: Acute Code(s): F11.20 - OPIOID DEPENDENCE, UNCOMPLICATED SNOMED Code(s): 19893169 (5) Status post Snehal procedure Current Visit: No Status: Acute Code(s): Z93.3 - COLOSTOMY STATUS SNOMED Code(s): 303042989 Plan: We will continue to follow with general surgery. Pain control per surgery at this time. Pulmonary toilet. Patient encouraged to ambulate. We'll continue to follow. Time with Patient: Less than 30
[2018-01-28] MEDS: IPRATROPIUM-ALBUTEROL 3 ML NEB INHALATION SCH ×2 (07:26→11:50)
[2018-01-28] MEDS: SYMBICORT 160-4.5 MCG INHALER INHALATION SCH (07:26)
[2018-01-28 07:39] LABS: Anion Gap 8 mmol/L; Blood Urea Nitrogen 3 mg/dL (9-20); Calcium 8.3 mg/dL (8.4-10.2); Carbon Dioxide 24 mmol/L (22-30); Chloride 108 mmol/L (98-107); Glucose 106 mg/dL (74-99); Potassium 3.9 mmol/L (3.5-5.1); Sodium 140 mmol/L (137-145)
[2018-01-28 07:49] VITALS: TEMP 98.6
[2018-01-28 07:55] LABS: Basophils % (A) 0 %; Eosinophils # (A) 0.1 k/uL (0-0.7); Eosinophils % (A) 2 %; HCT 36.8 % (39.0-53.0); HGB 12.5 gm/dL (13.0-17.5); Lymphocytes # (A) 1.4 k/uL (1.0-4.8); Lymphocytes % (A) 24 %; MCH 31.4 pg (25.0-35.0); MCHC 33.9 g/dL (31.0-37.0); MCV 92.7 fL (80.0-100.0); Mean Platelet Volume 8.3; Monocytes # (A) 0.3 k/uL (0-1.0); Monocytes % (A) 5 %; Neutrophils # (A) 4.2 k/uL (1.3-7.7); Neutrophils % (A) 69 %; Platelet Count 169 k/uL (150-450); RBC 3.97 m/uL (4.30-5.90); RDW 15.1 % (11.5-15.5)
[2018-01-28] MEDS: ATENOLOL 25 MG TAB PO SCH (08:22)
[2018-01-28] MEDS: ALVIMOPAN 12 MG CAPSULE PO SCH (08:22)
[2018-01-28] MEDS: FAMOTIDINE 20 MG/2 ML VIAL IV SCH (08:23)
[2018-01-28] MEDS: clonazePAM 1 MG TAB PO SCH (08:23)
[2018-01-28] MEDS: hydrALAZINE HCL 50 MG TAB PO SCH (10:38)
--- NOTE | 2018-01-28 11:19 | P.PN ---
<Mickie Buine M - Last Filed: 01/28/18 11:00> Subjective Progress Note Date: 01/28/18 57-year-old male seen this morning at the bedside nursing reports patient did ambulate once in the hallway this morning patient states is anxious to go home doesn't want anymore IV pain medication "I do not want to go through withdrawals at home" patient has been receiving IV dilaudid with IV Toradol patient reports he continues to have abdominal pain from the surgical site. States passing gas no stool and tolerating diet. Did note the systolic blood pressure is elevated 170/94 no fever chills sats on room air 95% Status post January 24 colostomy reversal, partial omentectomy, repair umbilical hernia. Objective - Vital Signs Vital signs: Vital Signs Temp 98.6 F 01/28/18 07:25 Pulse 97 01/28/18 07:25 Resp 18 01/28/18 07:25 BP 171/94 01/28/18 07:25 Pulse Ox 98 01/28/18 00:33 Intake & Output 01/27/18 01/28/18 01/28/18 18:59 06:59 18:59 Intake Total 1298 1400 Output Total 1300 Balance -2 1400 Intake: Intake, IV Titration 938 1400 Amount D5-0.45% NaCl with KCl 938 1400 20Meq/l 1,000 ml @ 125 mls/hr IV .Q8H [facility] Rx#: [id number] Oral 360 Output: Urine 1300 Uretheral (Hilario) 1300 Other: Voiding Method Indwelling Catheter Toilet # Voids 1 2 - Exam Physical exam 57-year-old male awake resting in bed patient needs much encouragement ambulate reports having surgical pain "getting better" reports no nausea vomiting Lungs adequate air movement bilaterally on room air Heart S1-S2 audible regular Abdomen surgical tenderness appropriate few hypoactive bowel tones surgical dressing dry reportedly urinating no difficulty no stool states not passing gas reports tolerating diet reports no nausea no vomiting Extremities no edema - Labs CBC & Chem 7: 01/28/18 06:53 01/28/18 06:53 Labs: Abnormal Lab Results - Last 24 Hours (Table) 01/28/18 01/28/18 Range/Units 06:53 06:53 RBC 3.97 L (4.30-5.90) m/uL Hgb 12.5 L (13.0-17.5) gm/dL Hct 36.8 L (39.0-53.0) % Chloride 108 H (98-107) mmol/L BUN 3 L (9-20) mg/dL Creatinine 0.52 L (0.66-1.25) mg/dL Glucose 106 H (74-99) mg/dL Calcium 8.3 L (8.4-10.2) mg/dL Assessment and Plan Assessment: Impression Diverticulitis of colon with perforation Postop 24 of January colostomy reversal, partial omentectomy, repair umbilical hernia History of a DVT in the past COPD with no evidence of an acute exacerbation Hypertension History of coronary artery disease with prior coronary stenting Plan Continue postop surgical care Increase activity Pain control stop IV dilaudid and continue with Percocet as ordered DVT and GI prophylaxis Continue full liquid diet advance if tolerated The above impression and plan of care have been discussed and directed by signing physician. Vanessa Bui nurse practitioner acting as scribe for signing physician. <Ubaldo Rodriguez - Last Filed: 01/28/18 17:26> Objective - Vital Signs Vital signs: Vital Signs Temp 98.6 F 01/28/18 07:25 Pulse 86 01/28/18 13:12 Resp 18 01/28/18 07:25 BP 162/80 01/28/18 13:12 Pulse Ox 98 01/28/18 00:33 Intake & Output 01/27/18 01/28/18 01/28/18 18:59 06:59 18:59 Intake Total 1298 1400 Output Total 1300 Balance -2 1400 Intake: Intake, IV Titration 938 1400 Amount D5-0.45% NaCl with KCl 938 1400 20Meq/l 1,000 ml @ 125 mls/hr IV .Q8H [facility] Rx#: [id number] Oral 360 Output: Urine 1300 Uretheral (Hilraio) 1300 Other: Voiding Method Indwelling Catheter Toilet # Voids 1 2 - Labs CBC & Chem 7: 01/28/18 06:53 01/28/18 06:53 Labs: Abnormal Lab Results - Last 24 Hours (Table) 01/28/18 01/28/18 Range/Units 06:53 06:53 RBC 3.97 L (4.30-5.90) m/uL Hgb 12.5 L (13.0-17.5) gm/dL Hct 36.8 L (39.0-53.0) % Chloride 108 H (98-107) mmol/L BUN 3 L (9-20) mg/dL Creatinine 0.52 L (0.66-1.25) mg/dL Glucose 106 H (74-99) mg/dL Calcium 8.3 L (8.4-10.2) mg/dL Assessment and Plan Assessment: As above see discharge summary (1) Diverticulitis of colon with perforation Current Visit: No Status: Acute Code(s): K57.20 - DVTRCLI OF LG INT W PERFORATION AND ABSCESS W/O BLEEDING SNOMED Code(s): 48804037
[2018-01-28] MEDS ORDERED: ATENOLOL 25 MG TAB PO STA (11:20)
[2018-01-28] MEDS ORDERED: hydrALAZINE HCL 50 MG TAB PO SCH (11:30)
[2018-01-28 13:12] VITALS: BP 162/80; PULSE 86
--- NOTE | 2018-01-28 14:06 | P.DS ---
<Vanessa Bui - Last Filed: 01/28/18 13:45> Providers Date of admission: 01/24/18 07:31 Expected date of discharge: 01/28/18 Attending physician: Ubaldo Rodriguez Consults: 01/24/18 12:24 Consult Physician Routine Consulting Provider: Des Prince Consult Reason/Comments: Medical management Do you want consulting provider notified?: Yes Primary care physician: Des Prince Hospital Course: 57-year-old presented on the day of admission to undergo colostomy reversal. Patient had undergone a colonoscopy the day before which showed no significant abnormalities. Patient had a perforation a year ago for diverticulitis. Patient was having some dark-colored stools although an upper EGD showed no evidence of bleeding this was done the day before along with the colonoscopy. On January 24 patient underwent colostomy reversal, partial omentectomy, and a repair of umbilical hernia. Patient does have a history of chronic pain syndrome postop pain was controlled with the use of an epidural per anesthesia as well as analgesics for pain. On the day of discharge patient was able to be ambulatory on the unit tolerating a diet passing gas having a bowel movement was anxious to be discharged Percocet for pain was effective for pain control Impression Diverticulitis of colon with perforation Postop 24 of January colostomy reversal, partial omentectomy, repair umbilical hernia History of a DVT in the past COPD with no evidence of an acute exacerbation Hypertension History of coronary artery disease with prior coronary stenting Chronic pain syndrome The above impression and plan of care have been discussed and directed by signing physician. Vanessa Bui nurse practitioner acting as scribe for signing physician. Plan - Discharge Summary Discharge Rx Participant: Yes New Discharge Prescriptions: New oxyCODONE-APAP 7.5-325MG [Percocet 7.5-325 mg] 1 each PO Q4HR PRN #12 tab PRN Reason: MODERATE Pain Continue hydrALAZINE HCL 50 mg PO Q12H hydrOXYzine HCL [Atarax] 25 mg PO HS Nitroglycerin Sl Tabs [Nitrostat] 0.4 mg SUBLINGUAL Q5M PRN PRN Reason: Chest Pain Furosemide [Lasix] 40 mg PO DAILY Atorvastatin [Lipitor] 80 mg PO HS clonazePAM [KlonoPIN] 1 mg PO BID Albuterol Inhaler [Ventolin Hfa Inhaler] 2 puff INHALATION RT-Q6H PRN PRN Reason: Shortness Of Breath Diclofenac Sodium [Voltaren Gel] 2 gram TOPICAL QID Famotidine [Pepcid] 20 mg PO Q12HR #60 tab Ibuprofen [Advil] 200 mg PO Q8HR PRN PRN Reason: Pain Pseudoephedrine HCl [Sudafed 12 Hour] 120 mg PO Q12HR PRN PRN Reason: Allergy Symptoms Sucralfate [Carafate] 1 gm PO AC-BID PRN PRN Reason: NAUSEA, ABD PAIN Aspirin 81 mg PO DAILY Atenolol [Tenormin] 50 mg PO DAILY oxyCODONE HCL 20 mg PO Q4H PRN PRN Reason: Pain Discontinued metroNIDAZOLE [Flagyl] 500 mg PO Q8HR #30 tab Discharge Medication List Albuterol Inhaler [Ventolin Hfa Inhaler] 2 puff INHALATION RT-Q6H PRN 11/10/17 [ History] Atorvastatin [Lipitor] 80 mg PO HS 11/10/17 [History] Diclofenac Sodium [Voltaren Gel] 2 gram TOPICAL QID 11/10/17 [History] Furosemide [Lasix] 40 mg PO DAILY 11/10/17 [History] Nitroglycerin Sl Tabs [Nitrostat] 0.4 mg SUBLINGUAL Q5M PRN 11/10/17 [History] clonazePAM [KlonoPIN] 1 mg PO BID 11/10/17 [History] hydrALAZINE HCL 50 mg PO Q12H 11/10/17 [History] hydrOXYzine HCL [Atarax] 25 mg PO HS 11/10/17 [History] Famotidine [Pepcid] 20 mg PO Q12HR #60 tab 11/28/17 [Rx] Aspirin 81 mg PO DAILY 01/21/18 [History] Ibuprofen [Advil] 200 mg PO Q8HR PRN 01/21/18 [History] Pseudoephedrine HCl [Sudafed 12 Hour] 120 mg PO Q12HR PRN 01/21/18 [History] Sucralfate [Carafate] 1 gm PO AC-BID PRN 01/21/18 [History] Atenolol [Tenormin] 50 mg PO DAILY 01/24/18 [History] oxyCODONE HCL 20 mg PO Q4H PRN 01/24/18 [History] oxyCODONE-APAP 7.5-325MG [Percocet 7.5-325 mg] 1 each PO Q4HR PRN #12 tab [Rx] Follow up Appointment(s)/Referral(s): Ubaldo Rodriguez MD [Medical Doctor] - 1 Week Des Prince MD [Primary Care Provider] - 1 Week Activity/Diet/Wound Care/Special Instructions: No tub bath for six weeks. Shower daily. No lifting over 10 pounds for the next 6 weeks. May use ice packs to surgical site. No driving while taking narcotic for pain. Discharge Disposition: HOME SELF-CARE <Ubaldo Rodriguez - Last Filed: 01/28/18 17:28> - Discharge Diagnosis(es) (1) Diverticulitis of colon with perforation Current Visit: No Status: Acute Hospital Course: As above. Patient doing well today. He is quite anxious to go home at this point. Pain is improved from yesterday. Still complaining of diffuse body aches however. He says this is identical to the pain he was having prior to admission. Tolerating diet. No nausea or vomiting. No flatus. We'll plan discharge today. Initial contact me if he has any unexpected delay in return of bowel function. Patient also will contact me with any complaints of fevers, nausea, vomiting, increased pain.
[2018-01-28] MEDS ORDERED: FAMOTIDINE 20 MG TAB PO SCH (21:00)
[2018-01-29] MEDS ORDERED: ATENOLOL 50 MG TAB PO SCH (09:00)
== END 2018-01-28 16:25 | disposition home or self-care (01) | DRG 330 ==
LOC: 2ORMAIN 07:31 → 5MS5E 12:18 → 3SUR 01-27 09:13
PROVIDERS: ADMIT Surgery; ATTEND Surgery
PROC: 0DBU0ZZ Excision of Omentum, Open Approach (ICD-10-PCS; 2018-01-24)
PROC: 0WQF0ZZ Repair Abdominal Wall, Open Approach (ICD-10-PCS; 2018-01-24)
PROC: 0DBN0ZZ Excision of Sigmoid Colon, Open Approach (ICD-10-PCS; principal; 2018-01-24 09:30)
DX: Z43.3 Encounter for attention to colostomy (principal); F11.20 Opioid dependence, uncomplicated; E78.5 Hyperlipidemia, unspecified; F17.210 Nicotine dependence, cigarettes, uncomplicated; G89.4 Chronic pain syndrome; I10 Essential (primary) hypertension; I25.10 Atherosclerotic heart disease of native coronary artery without angina pectoris; I25.2 Old myocardial infarction; J44.9 Chronic obstructive pulmonary disease, unspecified; K21.9 Gastro-esophageal reflux disease without esophagitis; K42.9 Umbilical hernia without obstruction or gangrene; K57.30 Diverticulosis of large intestine without perforation or abscess without bleeding; F32.9 Major depressive disorder, single episode, unspecified; F41.9 Anxiety disorder, unspecified; M10.9 Gout, unspecified; M19.90 Unspecified osteoarthritis, unspecified site; M54.9 Dorsalgia, unspecified; Z79.82 Long term (current) use of aspirin; Z79.899 Other long term (current) drug therapy; Z95.5 Presence of coronary angioplasty implant and graft; Z86.73 Personal history of transient ischemic attack (TIA), and cerebral infarction without residual deficits; Z86.718 Personal history of other venous thrombosis and embolism; Z86.14 Personal history of Methicillin resistant Staphylococcus aureus infection; Z86.19 Personal history of other infectious and parasitic diseases; Z98.42 Cataract extraction status, left eye; Z98.41 Cataract extraction status, right eye; Z96.1 Presence of intraocular lens; Z90.49 Acquired absence of other specified parts of digestive tract; Z82.49 Family history of ischemic heart disease and other diseases of the circulatory system; Z80.3 Family history of malignant neoplasm of breast; Z83.6 Family history of other diseases of the respiratory system
CPT/HCPCS: 36415; 71045; 80048; 80051; 80053; 85025; 86850; 86900; 86901; 88304; 88305; 94640

== ENCOUNTER 2018-09-18 14:06 | Emergency (ER) | payer MEDICARE, OTHER ==
[2018-09-18 14:35] VITALS: BP 152/89; PULSE 88; RESP 18; TEMP 98
[2018-09-18] MEDS ORDERED: diphenhydrAMINE 50 MG/ML 1 ML VIAL IM STA (15:08)
[2018-09-18] MEDS ORDERED: ALPRAZolam 0.5 MG TAB PO STA (15:08)
--- NOTE | 2018-09-18 15:16 | ED ---
General Adult HPI - General Chief complaint: Recheck/Abnormal Lab/Rx Stated complaint: Possible bowel infection Time Seen by Provider: 09/18/18 14:46 Source: patient Mode of arrival: ambulatory Limitations: no limitations - History of Present Illness Initial comments: Dictation was produced using [employer] dictation software. please excuse any grammatical, word or spelling errors. Chief Complaint: 58-year-old male presents with symptomatic rash. History of Present Illness: Patient is 58-year-old male presents with symptomatic rash. Patient states that he has this rash since January of last year. He states that he suddenly got this after he was diagnosed with some sort of intra-abdominal issue. He seen multiple specialists. Reports that nobody seems to know what his rashes from. States that his rash is itchy today. He is requesting Benadryl and something to calm his nerves. The ROS documented in this emergency department record has been reviewed and confirmed by me. Those systems with pertinent positive or negative responses have been documented in the HPI. All other systems are other negative and/or noncontributory. PHYSICAL EXAM: General Impression: Alert and oriented x3, not in acute distress HEENT: Normocephalic atraumatic, extra-ocular movements intact, pupils equal and reactive to light bilaterally, mucous membranes moist. Cardiovascular: Heart regular rate and rhythm, S1&S2 audible, no murmurs, rubs or gallops Chest: Lungs clear to auscultation bilaterally, no rhonchi, no wheeze, no rales Abdomen: Bowel sounds present, abdomen soft, non-tender, non-distended, no organomegaly Musculoskeletal: Pulses present and equal in all extremities, no peripheral edema Motor: Power 5/5 bilaterally, no focal deficits noted Neurological: CN II-XII grossly intact, no focal motor or sensory deficits noted Skin: Multiple hypopigmented rash. They seem to be flat without any significant induration. No erythema. Psych: Normal affect and mood ED course: 58-year-old male looking for symptom relief secondary to rash. He states that his rash is itchy. As upon arrival are within acceptable limits. Patient's symptoms does not reflect life-threatening rash. Appears to be chronic. Patient does have an outpatient schedule ointment with [facility] for further outpatient evaluation. Patient given IM Benadryl and by mouth Xanax. Patient clear for discharge. - Related Data Home Medications Medication Instructions Recorded Confirmed Albuterol Inhaler [Ventolin Hfa 2 puff INHALATION RT-Q6H PRN 11/10/17 01/24/18 Inhaler] Atorvastatin [Lipitor] 80 mg PO HS 11/10/17 01/24/18 Diclofenac Sodium [Voltaren Gel] 2 gram TOPICAL QID 11/10/17 01/24/18 Furosemide [Lasix] 40 mg PO DAILY 11/10/17 01/24/18 Nitroglycerin Sl Tabs [Nitrostat] 0.4 mg SUBLINGUAL Q5M PRN 11/10/17 01/24/18 clonazePAM [KlonoPIN] 1 mg PO BID 11/10/17 01/24/18 hydrALAZINE HCL 50 mg PO Q12H 11/10/17 01/24/18 hydrOXYzine HCL [Atarax] 25 mg PO HS 11/10/17 01/24/18 Aspirin 81 mg PO DAILY 01/21/18 01/24/18 Ibuprofen [Advil] 200 mg PO Q8HR PRN 01/21/18 01/24/18 Pseudoephedrine HCl [Sudafed 12 120 mg PO Q12HR PRN 01/21/18 01/24/18 Hour] Sucralfate [Carafate] 1 gm PO AC-BID PRN 01/21/18 01/24/18 Atenolol [Tenormin] 50 mg PO DAILY 01/24/18 01/24/18 oxyCODONE HCL 20 mg PO Q4H PRN 01/24/18 01/24/18 Previous Rx's Medication Instructions Recorded Famotidine [Pepcid] 20 mg PO Q12HR #60 tab 11/28/17 oxyCODONE-APAP 7.5-325MG [Percocet 1 each PO Q4HR PRN #12 tab 01/28/18 7.5-325 mg] Allergies Allergy/AdvReac Type Severity Reaction Status Date / Time No Known Allergies Allergy Verified 09/18/18 14:33 Review of Systems ROS Statement: Those systems with pertinent positive or pertinent negative responses have been documented in the HPI. ROS Other: All systems not noted in ROS Statement are negative. Past Medical History Past Medical History: Chest Pain / Angina, COPD, Deep Vein Thrombosis (DVT), GERD/Reflux, Hyperlipidemia, Hypertension, Myocardial Infarction ([place]), Osteoarthritis (OA) Additional Past Medical History / Comment(s): History of hepatitis A, chronic pain, gout, "kidneys shut down x2 when sick". Back pain, TIA 2009 Last Myocardial Infarction Date:: 1999 History of Any Multi-Drug Resistant Organisms: MRSA Date of last positivie culture/infection: 2015 MDRO Source:: face MRSA Past Surgical History: Bowel Resection, Heart Catheterization With Stent, Hernia Repair, Orthopedic Surgery Additional Past Surgical History / Comment(s): Shoulder surgery, hernia, cataracts, pain clinic procedures, colostomy. Past Anesthesia/Blood Transfusion Reactions: No Reported Reaction Date of Last Stent Placement:: 1999 Past Psychological History: Anxiety, Depression Smoking Status: Current some day smoker Past Alcohol Use History: Daily Past Drug Use History: None Reported - Past Family History Mother Family Medical History: Cancer, Myocardial Infarction ([place]) Father Family Medical History: Myocardial Infarction ([place]) Sister(s) Family Medical History: Cancer Additional Family Medical History / Comment(s): Sisters x2 General Exam Limitations: no limitations Course Vital Signs 09/18/18 14:33 Temperature 98 F Pulse Rate 88 Respiratory 18 Rate Blood Pressure 152/89 O2 Sat by Pulse 99 Oximetry Disposition Clinical Impression: Rash Disposition: HOME SELF-CARE Condition: Good Instructions (If sedation given, give patient instructions): Dermatitis (ED) Is patient prescribed a controlled substance at d/c from ED?: No Referrals: None,Stated [Primary Care Provider] - 1-2 days Time of Disposition: 15:16
== END 2018-09-18 15:30 | disposition home or self-care (01) ==
LOC: EC 14:06
DX: R21 Rash and other nonspecific skin eruption (principal); J44.9 Chronic obstructive pulmonary disease, unspecified; K21.9 Gastro-esophageal reflux disease without esophagitis; E78.5 Hyperlipidemia, unspecified; I10 Essential (primary) hypertension; I25.2 Old myocardial infarction; M19.90 Unspecified osteoarthritis, unspecified site; M10.9 Gout, unspecified; F32.9 Major depressive disorder, single episode, unspecified; F41.9 Anxiety disorder, unspecified; F17.200 Nicotine dependence, unspecified, uncomplicated; Z86.19 Personal history of other infectious and parasitic diseases; Z86.14 Personal history of Methicillin resistant Staphylococcus aureus infection; Z86.718 Personal history of other venous thrombosis and embolism; Z86.73 Personal history of transient ischemic attack (TIA), and cerebral infarction without residual deficits; Z79.82 Long term (current) use of aspirin; Z79.899 Other long term (current) drug therapy; Z95.5 Presence of coronary angioplasty implant and graft
CPT/HCPCS: 99282; 96372; J1200

== ENCOUNTER 2018-10-13 04:03 | Observation (INO) | payer MEDICARE ==
--- NOTE | 2018-10-13 05:11 | CT ---
EXAM: CT Head Without Intravenous Contrast CLINICAL HISTORY: Headache 3 months TECHNIQUE: Axial computed tomography images of the head/brain without intravenous contrast. CTDI is 49.1 mGy and DLP is 1177.4 mGy-cm. This CT exam was performed using one or more of the following dose reduction techniques: automated exposure control, adjustment of the mA and/or kV according to patient size, and/or use of iterative reconstruction technique. COMPARISON: 10/17/2017 FINDINGS: Brain: Unremarkable. No hemorrhage. No significant white matter disease. No edema. Ventricles: Unremarkable. No ventriculomegaly. Bones/joints: Unremarkable. No acute fracture. Soft tissues: Fluid density superficial to the right occipital region with subcutaneous fat stranding is noted (series 201; images 22-40). Sinuses: Unremarkable as visualized. No acute sinusitis. Mastoid air cells: Unremarkable as visualized. No mastoid effusion. IMPRESSION: Fluid density superficial to the right occipital region with subcutaneous fat stranding is noted. This is new from the previous examination and may represent subcutaneous traumatic injury or inflammation/infection. Please correlate clinically. No underlying osseous abnormality identified. No acute intracranial process identified.
[2018-10-13] MEDS ORDERED: PIPERACILLIN-TAZOBACTAM 3.375 GM in SODIUM CHLORIDE 0.9% 100 ML IVPB STA (05:31)
[2018-10-13 05:59] LABS: Basophils # (A) 0.1 k/uL (0-0.2); Basophils % (A) 1 %; Eosinophils # (A) 0.3 k/uL (0-0.7); Eosinophils % (A) 3 %; HCT 43.7 % (39.0-53.0); Lymphocytes # (A) 2.9 k/uL (1.0-4.8); Lymphocytes % (A) 29 %; MCH 30.7 pg (25.0-35.0); MCHC 32.1 g/dL (31.0-37.0); MCV 95.5 fL (80.0-100.0); Mean Platelet Volume 8.4; Monocytes # (A) 0.5 k/uL (0-1.0); Monocytes % (A) 5 %; Neutrophils # (A) 6.2 k/uL (1.3-7.7); Neutrophils % (A) 62 %; Platelet Count 231 k/uL (150-450); RBC 4.57 m/uL (4.30-5.90); WBC 10.1 k/uL (3.8-10.6)
[2018-10-13 06:10] LABS: ALT 26 U/L (21-72); AST 19 U/L (17-59); Albumin 3.6 g/dL (3.5-5.0); Alkaline Phosphatase 81 U/L (38-126); Anion Gap 6 mmol/L; Blood Urea Nitrogen 10 mg/dL (9-20); Calcium 8.8 mg/dL (8.4-10.2); Carbon Dioxide 25 mmol/L (22-30); Chloride 110 mmol/L (98-107); Glucose 108 mg/dL (74-99); Potassium 4.9 mmol/L (3.5-5.1); Sodium 141 mmol/L (137-145); Total Bilirubin 0.3 mg/dL (0.2-1.3); Total Protein 6.3 g/dL (6.3-8.2)
[2018-10-13 06:11] LABS: C Reactive Protein <5.0 mg/L (<10.0)
[2018-10-13] MEDS ORDERED: MORPHINE SULFATE 4 MG/ML SYRINGE IVP STA (06:29)
--- NOTE | 2018-10-13 07:38 | ED ---
Headache HPI - General Chief Complaint: Headache Stated Complaint: headache Time Seen by Provider: 10/13/18 04:22 Mode of arrival: ambulatory Limitations: no limitations - History of Present Illness Initial Comments: 's patient is a 58-year-old man who presents to be evaluated for what he is describing as severe, constant, occipital headache. The patient states that he also noticed some swelling to the back of his head. He states that the swelling has been present going on 2-3 months. He states that there was a little bit of discomfort earlier but the headache is become severe over the past couple of days. Patient denies any associated symptoms he has not noted drainage there. He has not noticed fever, chills, chest pain or palpitations. Patient denies trauma to that area. MD Complaint: headache -: days(s) Onset Description: gradual Location: occipital Severity: severe Quality: aching, constant Consistency: constant Improves With: nothing Worsens With: none Context: occurred at rest Treatments Prior to Arrival: none - Related Data Home Medications Medication Instructions Recorded Confirmed Atorvastatin [Lipitor] 80 mg PO HS 11/10/17 10/13/18 Furosemide [Lasix] 40 mg PO DAILY 11/10/17 10/13/18 hydrALAZINE HCL 50 mg PO Q12H 11/10/17 10/13/18 Aspirin 81 mg PO DAILY 01/21/18 10/13/18 Atenolol 100 mg PO DAILY 10/13/18 10/13/18 Allergies Allergy/AdvReac Type Severity Reaction Status Date / Time No Known Allergies Allergy Verified 10/13/18 07:37 Review of Systems ROS Statement: Those systems with pertinent positive or pertinent negative responses have been documented in the HPI. ROS Other: All systems not noted in ROS Statement are negative. Constitutional: Denies: fever, chills Respiratory: Denies: cough, dyspnea Cardiovascular: Denies: chest pain, palpitations Gastrointestinal: Denies: abdominal pain, nausea, vomiting Musculoskeletal: Denies: back pain Skin: Denies: rash Neurological: Reports: headache. Denies: weakness, numbness, paresthesias, confusion Past Medical History Past Medical History: Chest Pain / Angina, COPD, Deep Vein Thrombosis (DVT), GERD/Reflux, Hyperlipidemia, Hypertension, Myocardial Infarction ([place]), Osteoarthritis (OA) Additional Past Medical History / Comment(s): History of hepatitis A, chronic pain, gout, "kidneys shut down x2 when sick". Back pain, TIA 2009 Last Myocardial Infarction Date:: 1999 History of Any Multi-Drug Resistant Organisms: MRSA Date of last positivie culture/infection: 2015 MDRO Source:: face MRSA Past Surgical History: Bowel Resection, Heart Catheterization With Stent, Hernia Repair, Orthopedic Surgery Additional Past Surgical History / Comment(s): Shoulder surgery, hernia, cataracts, pain clinic procedures, colostomy. Past Anesthesia/Blood Transfusion Reactions: No Reported Reaction Date of Last Stent Placement:: 1999 Past Psychological History: Anxiety, Depression Smoking Status: Current some day smoker Past Alcohol Use History: Daily Past Drug Use History: None Reported - Past Family History Mother Family Medical History: Cancer, Myocardial Infarction ([place]) Father Family Medical History: Myocardial Infarction ([place]) Sister(s) Family Medical History: Cancer Additional Family Medical History / Comment(s): Sisters x2 General Exam Limitations: no limitations General appearance: alert, in no apparent distress Head exam: Present: atraumatic, other (The patient does have some soft tissue swelling at the occiput, possibly greater on the right than left side. There is some mild warmth. There is no obvious erythema or infection at the surface of the skin. No contusion noted.) Eye exam: Present: normal appearance, PERRL, EOMI. Absent: scleral icterus, conjunctival injection, nystagmus ENT exam: Present: normal oropharynx, TM's normal bilaterally Neck exam: Present: normal inspection, full ROM. Absent: tenderness, meningismus Respiratory exam: Present: normal lung sounds bilaterally. Absent: respiratory distress, wheezes, rales, rhonchi, stridor Cardiovascular Exam: Present: regular rate, normal rhythm, normal heart sounds. Absent: systolic murmur, diastolic murmur, rubs, gallop GI/Abdominal exam: Present: soft. Absent: distended, tenderness, guarding, rebound, mass Extremities exam: Present: normal inspection, normal capillary refill. Absent: pedal edema, calf tenderness Back exam: Present: normal inspection Neurological exam: Present: alert, oriented X3, CN II-XII intact. Absent: motor sensory deficit Skin exam: Present: warm, dry, intact, normal color. Absent: rash Course Vital Signs 10/13/18 10/13/18 10/13/18 04:12 08:48 11:02 Temperature 97.7 F 98.0 F 98.2 F Pulse Rate 66 63 62 Respiratory 18 18 18 Rate Blood Pressure 170/85 154/98 146/68 O2 Sat by Pulse 100 98 98 Oximetry - Reevaluation(s) Reevaluation #1: 10/13/18 07:[address] Lynn guarding admission but had not heard back at time of shift change, this is signed out to the following physician Dr. Delgado Medical Decision Making - Medical Decision Making 's patient is 58-year-old man with headache near the occiput and soft tissue swelling there though denying recent trauma. Given the patient's degree of discomfort he was sent for CT which does show symptoms fluid collection. Abscess is in the differential diagnosis, and although the overlying skin is not erythematous there is a trace of warmth. We'll admit patient for symptom control and to have surgical consultation rule out abscess there. - Lab Data Result diagrams: 10/14/18 08:22 10/14/18 08:22 Lab Results 10/13/18 10/13/18 Range/Units 05:51 05:51 WBC 10.1 (3.8-10.6) k/uL RBC 4.57 (4.30-5.90) m/uL Hgb 14.0 (13.0-17.5) gm/dL Hct 43.7 (39.0-53.0) % MCV 95.5 (80.0-100.0) fL MCH 30.7 (25.0-35.0) pg MCHC 32.1 (31.0-37.0) g/dL RDW 15.0 (11.5-15.5) % Plt Count 231 (150-450) k/uL Neutrophils % 62 % Lymphocytes % 29 % Monocytes % 5 % Eosinophils % 3 % Basophils % 1 % Neutrophils # 6.2 (1.3-7.7) k/uL Lymphocytes # 2.9 (1.0-4.8) k/uL Monocytes # 0.5 (0-1.0) k/uL Eosinophils # 0.3 (0-0.7) k/uL Basophils # 0.1 (0-0.2) k/uL Sodium 141 (137-145) mmol/L Potassium 4.9 (3.5-5.1) mmol/L Chloride 110 H (98-107) mmol/L Carbon Dioxide 25 (22-30) mmol/L Anion Gap 6 mmol/L BUN 10 (9-20) mg/dL Creatinine 0.56 L (0.66-1.25) mg/dL Est GFR (CKD-EPI)AfAm >90 (>60 ml/min/1.73 sqM) Est GFR (CKD-EPI)NonAf >90 (>60 ml/min/1.73 sqM) Glucose 108 H (74-99) mg/dL Calcium 8.8 (8.4-10.2) mg/dL Total Bilirubin 0.3 (0.2-1.3) mg/dL AST 19 (17-59) U/L ALT 26 (21-72) U/L Alkaline Phosphatase 81 (38-126) U/L C-Reactive Protein <5.0 (<10.0) mg/L Total Protein 6.3 (6.3-8.2) g/dL Albumin 3.6 (3.5-5.0) g/dL Disposition Clinical Impression: Intractable headache Disposition: ADMITTED IP TO THIS [facility] Condition: Fair
[2018-10-13] MEDS ORDERED: ONDANSETRON 4 MG/2 ML VIAL IVP PRN (07:42)
[2018-10-13] MEDS ORDERED: NALOXONE 0.4 MG/ML 1 ML VIAL IV PRN (07:42)
[2018-10-13] MEDS: SODIUM CHLORIDE 0.9% 1,000 ML IV SCH (08:52)
[2018-10-13 10:55] VITALS: BMI 29.0
[2018-10-13] MEDS: FUROSEMIDE 40 MG TAB PO SCH (13:11)
[2018-10-13] MEDS: hydrALAZINE HCL 50 MG TAB PO SCH ×2 (13:11→19:54)
[2018-10-13] MEDS: ATENOLOL 50 MG TAB PO SCH (13:11)
[2018-10-13] MEDS: MORPHINE SULFATE 4 MG/ML SYRINGE IV PRN ×2 (14:01→21:12)
[2018-10-13] MEDS ORDERED: ACETAMINOPHEN TAB 325 MG TAB PO PRN (14:28)
--- NOTE | 2018-10-13 14:46 | P.HPIM ---
History of Present Illness H&P Date: 10/13/18 This is a 58-year-old male patient of Dr. Mccollum. Patient presented to the ER with complaints of headache that has been increasing over the past few days. Patient also started complaining of swelling. Patient states that the swelling has been occurring for 2-3 months. Patient denies any trauma or falls. Patient denies any open incisions to head. Patient does have a past medical history of coronary artery disease, chest pain, COPD, CVA, DVT, GERD, GI bleed, hearing disorder, hyperlipidemia, hypertension, liver disease, myocardial infarction, osteoarthritis, pneumonia, heart cath with stents, anxiety and depression and nicotine dependence. Patient denies alcohol consumption. Head CT completed showing fluid density superficial to the right ischial region with subcutaneous fat stranding is noted. This is new from the previous examination and may represent subacute traumatic injury or inflammation/infection. Please correlate clinically. No underlining osseous anatomy abnormality identified. No acute intracranial process identified. Surgical services have been consulted for further evaluation. Patient is afebrile. White blood cell count normal at 10.1. Will consult infectious disease. At this time patient is still complaining of mild headache. No open lesion or increased edema noted to exam. Tylenol morphine has been ordered. Patient denies chest pain or shortness of breath. Patient denies nausea vomiting or diarrhea. Patient denies any urinary burning or frequency. Review of Systems Please refer to HPI otherwise unremarkable Past Medical History Past Medical History: Coronary Artery Disease (CAD), Chest Pain / Angina, COPD, CVA/TIA, Deep Vein Thrombosis (DVT), GERD/Reflux, GI Bleed, Hearing Disorder / Deafness, Hyperlipidemia, Hypertension, Liver Disease, Myocardial Infarction (SD), Osteoarthritis (OA), Pneumonia Additional Past Medical History / Comment(s): Bronchitis, pleural effusion, DVT L leg, chronic pain low back, bilateral carpal tunnel syndrome, gout, arthritis multiple joints, diverticular perforation/colostomy with reversal, polyps, lower GI bleed, renal failure twice when ill, numbness tingling lower extremities/hands, tinnitis bilaterally, vertigo, TIA in 2009, anemia, hepatitis A, PVD, sinus problem, CRAIG L ear, pushed down stairs and has brain shunt. Last Myocardial Infarction Date:: 2002 History of Any Multi-Drug Resistant Organisms: MRSA Date of last positivie culture/infection: 2016 MDRO Source:: face MRSA Past Surgical History: No Surgical Hx Reported, Appendectomy, Bowel Resection, Heart Catheterization With Stent, Hernia Repair, Orthopedic Surgery Additional Past Surgical History / Comment(s): Bowel resection with colostomy since reversed, colonoscopies/polypectomies, EGD, umbilical and R inguinal hernia repairs, R shoulder surgery, pain clinic procedures, laser surgery R hip and R knee to "clean out arthritis", pins in R hand, pushed down stairs and has brain shunt, circumcism. Past Anesthesia/Blood Transfusion Reactions: No Reported Reaction Date of Last Stent Placement:: 2002 Smoking Status: Current every day smoker - Past Family History Mother Family Medical History: Cancer, Myocardial Infarction (SD) Additional Family Medical History / Comment(s): Mother had unknown type of cancer. She of a SD at the age of 68yrs. Father Family Medical History: Myocardial Infarction (SD) Additional Family Medical History / Comment(s): Father from his heart "exploding" at the age of 58 yrs. Sister(s) Family Medical History: Cancer Additional Family Medical History / Comment(s): Sisters x2- type of cancer unknown Medications and Allergies Home Medications Medication Instructions Recorded Confirmed Type Atorvastatin [Lipitor] 80 mg PO HS 11/10/17 10/13/18 History Furosemide [Lasix] 40 mg PO DAILY 11/10/17 10/13/18 History hydrALAZINE HCL 50 mg PO Q12H 11/10/17 10/13/18 History Aspirin 81 mg PO DAILY 01/21/18 10/13/18 History Atenolol 100 mg PO DAILY 10/13/18 10/13/18 History Allergies Allergy/AdvReac Type Severity Reaction Status Date / Time No Known Allergies Allergy Verified 10/13/18 07:37 Physical Exam Vitals: Vital Signs Temp Pulse Pulse Resp BP BP Pulse Ox 10/13/18 12:00 97.2 F L 61 18 150/82 98 10/13/18 11:02 98.2 F 62 18 146/68 98 10/13/18 08:48 98.0 F 63 18 154/98 98 10/13/18 04:12 97.7 F 66 18 170/85 100 Intake and Output 10/12/18 10/13/18 10/13/18 22:59 06:59 14:59 Other: Weight 83.915 kg Head normocephalic, no signs of edema or open lesions to head Neck supple Lungs clear to auscultation bilaterally no wheezing or crackles Heart regular rate and rhythm S1-S2, no rub or gallop Abdomen is soft nontender nondistended positive bowel sounds no hepatosplenomegaly Extremities no edema Neuro alert and orientated to 3 Results CBC & Chem 7: 10/13/18 05:51 10/13/18 05:51 Labs: Abnormal Lab Results - Last 24 Hours (Table) 10/13/18 Range/Units 05:51 Chloride 110 H (98-107) mmol/L Creatinine 0.56 L (0.66-1.25) mg/dL Glucose 108 H (74-99) mg/dL Thrombosis Risk Factor Assmnt - Choose All That Apply Any of the Below Risk Factors Present?: Yes Each Factor Represents 1 point: Abnormal pulmonary function (COPD), Age 41-60 years, Obesity (BMI >25) Other Risk Factors: Yes Each Risk Factor Represents 3 Points: Family history of DVT/PE Other congenital or acquired thrombophilia - If yes, enter type in comment: No Thrombosis Risk Factor Assessment Total Risk Factor Score: 6 Thrombosis Risk Factor Assessment Level: High Risk Assessment and Plan Assessment: 1. Headache with possible scalp abscess. Head CT completed showing fluid density superficial to the right ischial region with subcutaneous fat stranding is noted this is new from the previous exam and may represent subcutaneous, injury or inflammation/infection. Please correlate clinically. No underlying osseous of now abnormality identified. No acute intracranial process identified. Surgical services consulted. Infectious disease consulted 2. History of diverticulitis with perforation. Patient had colostomy but has been reversed last year 3. History of essential hypertension 4. History of COPD 5. History of GERD 6. History of DVT. Patient reports this is many years ago and was is not currently on anticoagulation 7. History of coronary artery disease with previous stents. Patient states this wasn't 2000 does not require current anticoagulation 8. History of hyperlipidemia 9. Previous fall downstairs which patient required shunt in 2006. 10. History of pneumonia 11. History of chronic pain 12. History of TIA in 2009 DVT prophylaxis SCDs until evaluating cleared by surgery. GI prophylaxis Protonix Time with Patient: Greater than 30 (Greater than 60% of the total time spent in counseling and coordination of care. I performed an examination of the patient and discussed their management with the Nurse Practitioner. I have reviewed the Nurse Practitioner's notes and agree with the documented findings and plan of care)
--- NOTE | 2018-10-13 14:47 | P.GSCN ---
History of Present Illness Consult date: 10/13/18 Reason for Consult: possible scalp abscess Requesting physician: Chris Fitch History of present illness: CHIEF COMPLAINT: headache HISTORY OF PRESENT ILLNESS: 58-year-old male who presents to emergency room with a chief complaint of headache. Patient reports he has noticed some swelling to the back left side of his head that has been present for 3 months. He denies trauma or injury to the area. Denies drainage or blood from area. He believes he has been having some intermittent fevers over the past week or two. PAST MEDICAL HISTORY: See list. PAST SURGICAL HISTORY: See list. SOCIAL HISTORY: No illicit drug use. REVIEW OF SYSTEMS: CONSTITUTIONAL: Positive for fever or chills. HEENT: Denies blurred vision, vision changes, or eye pain. Denies hemoptysis. Reports chronic headache, worse in severity. Reports swelling to left back side of head. CARDIOVASCULAR: Denies chest pain or pressure. RESPIRATORY: No shortness of breath. GASTROINTESTINAL: Denies abdominal pain. Denies nausea or vomiting. HEMATOLOGIC: Denies bleeding disorders. GENITOURINARY: Denies any blood in urine. SKIN: Denies pruitis. Denies rash. PHYSICAL EXAM: VITAL SIGNS: Reviewed. GENERAL: Well-developed in no acute distress. HEENT: No sclera icterus. Extraocular movements grossly intact. Moist buccal mucosa. Head is atraumatic. Patient does have a small area of soft tissue swelling near left occipital region. No drainage noted. No erythema. No increased warmth. Tender to palpation. Patient with poor overall hygiene. His hair appears unkempt. ABDOMEN: Soft. Nondistended. Nontender. NEUROLOGIC: Alert and oriented. Cranial nerves II through XII grossly intact. IMAGING: CT brain: Fluid density superficial to the right occipital region with subcutaneous fat stranding noted. New from previous examination may represent s ubcutaneous traumatic injury or inflammation/infection. No underlying osseous abnormality identified. ASSESSMENT: 1. Headache PLAN: Patient complains of swelling and pain to left side of his head. No obvious abscess or infection. Patient may have had a subcutaneous cyst that drained spontaneously. No surgical intervention is recommended at this time. Patient is stable from a surgical standpoint. Nurse practitioner note has been reviewed by physician. Signing provider agrees with the documented findings, assessment, and plan of care. Past Medical History Past Medical History: Coronary Artery Disease (CAD), Chest Pain / Angina, COPD, CVA/TIA, Deep Vein Thrombosis (DVT), GERD/Reflux, GI Bleed, Hearing Disorder / Deafness, Hyperlipidemia, Hypertension, Liver Disease, Myocardial Infarction (RI), Osteoarthritis (OA), Pneumonia Additional Past Medical History / Comment(s): Bronchitis, pleural effusion, DVT L leg, chronic pain low back, bilateral carpal tunnel syndrome, gout, arthritis multiple joints, diverticular perforation/colostomy with reversal, polyps, lower GI bleed, renal failure twice when ill, numbness tingling lower extremities/hands, tinnitis bilaterally, vertigo, TIA in 2009, anemia, hepatitis A, PVD, sinus problem, COUNCIL L ear, pushed down stairs and has brain shunt. Last Myocardial Infarction Date:: 2002 History of Any Multi-Drug Resistant Organisms: MRSA Year Discovered:: 2016 MDRO Source:: face MRSA Past Surgical History: No Surgical Hx Reported, Appendectomy, Bowel Resection, Heart Catheterization With Stent, Hernia Repair, Orthopedic Surgery Additional Past Surgical History / Comment(s): Bowel resection with colostomy since reversed, colonoscopies/polypectomies, EGD, umbilical and R inguinal hernia repairs, R shoulder surgery, pain clinic procedures, laser surgery R hip and R knee to "clean out arthritis", pins in R hand, pushed down stairs and has brain shunt, circumcism. Past Anesthesia/Blood Transfusion Reactions: No Reported Reaction Date of Last Stent Placement:: 2002 Smoking Status: Current every day smoker - Past Family History Mother Family Medical History: Cancer, Myocardial Infarction (RI) Additional Family Medical History / Comment(s): Mother had unknown type of cancer. She of a RI at the age of 68yrs. Father Family Medical History: Myocardial Infarction (RI) Additional Family Medical History / Comment(s): Father from his heart "exploding" at the age of 58 yrs. Sister(s) Family Medical History: Cancer Additional Family Medical History / Comment(s): Sisters x2- type of cancer unknown Medications and Allergies Home Medications Medication Instructions Recorded Confirmed Type Atorvastatin [Lipitor] 80 mg PO HS 11/10/17 10/13/18 History Furosemide [Lasix] 40 mg PO DAILY 11/10/17 10/13/18 History hydrALAZINE HCL 50 mg PO Q12H 11/10/17 10/13/18 History Aspirin 81 mg PO DAILY 01/21/18 10/13/18 History Atenolol 100 mg PO DAILY 10/13/18 10/13/18 History Allergies Allergy/AdvReac Type Severity Reaction Status Date / Time No Known Allergies Allergy Verified 10/13/18 07:37 Surgical - Exam Vital Signs Temp Pulse Resp BP Pulse Ox 97.7 F 66 18 170/85 100 10/13/18 04:12 10/13/18 04:12 10/13/18 04:12 10/13/18 04:12 10/13/18 04:12 Results - Labs 10/13/18 05:51 10/13/18 05:51 Abnormal Lab Results - Last 24 Hours (Table) 10/13/18 Range/Units 05:51 Chloride 110 H (98-107) mmol/L Creatinine 0.56 L (0.66-1.25) mg/dL Glucose 108 H (74-99) mg/dL Diabetes panel 10/13/18 Range/Units 05:51 Sodium 141 (137-145) mmol/L Potassium 4.9 (3.5-5.1) mmol/L Chloride 110 H (98-107) mmol/L Carbon Dioxide 25 (22-30) mmol/L BUN 10 (9-20) mg/dL Creatinine 0.56 L (0.66-1.25) mg/dL Glucose 108 H (74-99) mg/dL Calcium 8.8 (8.4-10.2) mg/dL AST 19 (17-59) U/L ALT 26 (21-72) U/L Alkaline Phosphatase 81 (38-126) U/L Total Protein 6.3 (6.3-8.2) g/dL Albumin 3.6 (3.5-5.0) g/dL Calcium panel 10/13/18 Range/Units 05:51 Calcium 8.8 (8.4-10.2) mg/dL Albumin 3.6 (3.5-5.0) g/dL Pituitary panel 10/13/18 Range/Units 05:51 Sodium 141 (137-145) mmol/L Potassium 4.9 (3.5-5.1) mmol/L Chloride 110 H (98-107) mmol/L Carbon Dioxide 25 (22-30) mmol/L BUN 10 (9-20) mg/dL Creatinine 0.56 L (0.66-1.25) mg/dL Glucose 108 H (74-99) mg/dL Calcium 8.8 (8.4-10.2) mg/dL Adrenal panel 10/13/18 Range/Units 05:51 Sodium 141 (137-145) mmol/L Potassium 4.9 (3.5-5.1) mmol/L Chloride 110 H (98-107) mmol/L Carbon Dioxide 25 (22-30) mmol/L BUN 10 (9-20) mg/dL Creatinine 0.56 L (0.66-1.25) mg/dL Glucose 108 H (74-99) mg/dL Calcium 8.8 (8.4-10.2) mg/dL Total Bilirubin 0.3 (0.2-1.3) mg/dL AST 19 (17-59) U/L ALT 26 (21-72) U/L Alkaline Phosphatase 81 (38-126) U/L Total Protein 6.3 (6.3-8.2) g/dL Albumin 3.6 (3.5-5.0) g/dL
[2018-10-13] MEDS ORDERED: ATORVASTATIN 80 MG TAB PO SCH (21:00)
[2018-10-14 06:30] VITALS: PULSE 58
[2018-10-14] MEDS ORDERED: PANTOPRAZOLE 40 MG TABLET PO SCH (07:30)
[2018-10-14] MEDS: ATENOLOL 50 MG TAB PO SCH (07:37)
[2018-10-14] MEDS: hydrALAZINE HCL 50 MG TAB PO SCH (07:37)
[2018-10-14] MEDS: FUROSEMIDE 40 MG TAB PO SCH (07:38)
[2018-10-14 08:59] LABS: Basophils # (A) 0.1 k/uL (0-0.2); Basophils % (A) 1 %; Eosinophils # (A) 0.3 k/uL (0-0.7); Eosinophils % (A) 3 %; HCT 47.3 % (39.0-53.0); HGB 15.1 gm/dL (13.0-17.5); Lymphocytes # (A) 3.6 k/uL (1.0-4.8); Lymphocytes % (A) 33 %; MCH 30.5 pg (25.0-35.0); MCV 95.2 fL (80.0-100.0); Mean Platelet Volume 7.7; Monocytes # (A) 0.5 k/uL (0-1.0); Monocytes % (A) 4 %; Neutrophils # (A) 6.3 k/uL (1.3-7.7); Neutrophils % (A) 59 %; Platelet Count 258 k/uL (150-450); RBC 4.97 m/uL (4.30-5.90); WBC 10.8 k/uL (3.8-10.6)
[2018-10-14 09:18] LABS: ALT 27 U/L (21-72); AST 21 U/L (17-59); Albumin 3.9 g/dL (3.5-5.0); Alkaline Phosphatase 84 U/L (38-126); Anion Gap 10 mmol/L; Blood Urea Nitrogen 15 mg/dL (9-20); Calcium 9.3 mg/dL (8.4-10.2); Carbon Dioxide 26 mmol/L (22-30); Chloride 104 mmol/L (98-107); Glucose 128 mg/dL (74-99); Potassium 4.7 mmol/L (3.5-5.1); Sodium 140 mmol/L (137-145); Total Bilirubin 0.6 mg/dL (0.2-1.3); Total Protein 6.9 g/dL (6.3-8.2)
[2018-10-14] MEDS ORDERED: diphenhydrAMINE ELIXIR 25 MG/10 ML CUP PO PRN (09:19)
--- NOTE | 2018-10-14 09:41 | CONS ---
CONSULTATION DATE OF SERVICE: 10/13/2018 REASON FOR CONSULTATION: Abnormal CT of the brain with concern for possible posterior neck area fluid/abscess. HISTORY OF PRESENT ILLNESS: The patient is a 58-year-old male presenting to the ER at [facility] early this morning with concern of pain in the posterior neck area which has been going on for almost 2 to 3 months with his symptoms recently getting worse. The patient denies any history of any trauma. Denies having any history of open wound or any drainage from the site. The patient describes the pain to be posterior neck/occipital area more of a dull aching pain at times throbbing, 5 to 6 out of 10, and no radiation. The patient denies any fever, rigors or chills. With these symptoms, the patient was evaluated by the ER physician. The patient did have CT of the head that was negative for any intracranial bleed; however, did show fluid density superficial to the right occipital area with some surrounding subcutaneous fat stranding with concern for possible abscess. The patient has been admitted to the hospital, has been evaluated by surgery as well and infectious disease consultation was requested as well for further management. The patient denies any history of recurrent skin soft tissue infection. The patient has been afebrile. His white count normal. His CMP was normal. REVIEW OF SYSTEMS: Positive points have been mentioned in HPI. Rest of systems are negative. PAST MEDICAL HISTORY: Coronary artery disease, angina, COPD, CVA, TIA, DVT, gastroesophageal reflux disease, hyperlipidemia, hypertension, MN, osteoarthritis, pneumonia. PAST SURGICAL HISTORY: Appendectomy, bowel resection, PTCA with stent, hernia repair, pins in the right hand. SOCIAL HISTORY: The patient is a current everyday smoker. Denies drinking or drug use. FAMILY HISTORY: Mother had history unknown type of cancer and MN. Father history of MN. ALLERGIES: No known drug allergies. MEDICATION: Medications include the patient is currently on Tylenol, Tenormin, Lipitor, Lasix, hydralazine, morphine sulfate, Narcan, Zofran, Protonix, saline. Did receive one dose of Zosyn in the ER. PHYSICAL EXAMINATION: On examination, blood pressure is 148/75 with a pulse of 65, temperature of 97.7. He is 98% on room air. General description is a middle aged male up in the bed in no distress. No tachypnea or accessory muscle of respiration use. HEENT examination shows no pallor or scleral icterus. Oral mucous membrane is dry. No pharyngeal erythema or thrush. NECK: Trachea central. No thyromegaly. Examination of posterior neck area, currently there is no evidence of any swelling or redness of the wall or any evidence of folliculitis. LUNGS: Unlabored breathing, clear to auscultation anteriorly. HEART: S1, S2. Regular rate and rhythm. ABDOMEN: Soft, no tenderness. No guarding or rigidity. EXTREMITIES: No edema of feet. SKIN EXAMINATION: No rash or mass palpable. NEUROLOGICAL: Patient is awake, alert, oriented x3. Mood and affect normal. LABS: Hemoglobin is 14, white count 10.1 with BUN of 10, creatinine 0.56. CT report as mentioned above. DIAGNOSTIC IMPRESSION AND PLAN: Patient admitted to the hospital with pain to the occipital area with some swelling with abnormal CT of the brain suggestive of some fluid collection. However clinically, I was unable to appreciate any swelling or induration or fluctuation with no redness or tenderness. The patient is not running any fever. His white count is normal. CRP is normal, that will go against an abscess. PLAN: 1. No need for any systemic antibiotic therapy. 2. If the patient spikes any fever or any change in clinical condition appropriate cultures will be obtained before starting the patient on antibiotics. 3. We will follow up on clinical condition and further adjust medication if needed. Thank you for this consultation. Will follow this patient along with you. MMODL / IJN: [id number] /
[2018-10-14] MEDS ORDERED: diphenhydrAMINE 25 MG CAP PO PRN (09:42)
[2018-10-14] MEDS: SODIUM CHLORIDE 0.9% 1,000 ML IV SCH (09:47)
--- NOTE | 2018-10-14 11:41 | P.PN ---
Subjective Progress Note Date: 10/14/18 CHIEF COMPLAINT: headache HISTORY OF PRESENT ILLNESS: Patient examined at the bedside. Patient continues to complain of a headache. WBC today 10.8. Patient is afebrile. PHYSICAL EXAM: VITAL SIGNS: Reviewed. GENERAL: Well-developed in no acute distress. HEENT: No sclera icterus. Extraocular movements grossly intact. Moist buccal mucosa. Head is atraumatic. Patient does have a very small area of soft tissue swelling near left occipital region, improved from yesterday. No drainage noted. No erythema. No increased warmth. Tender to palpation. ABDOMEN: Soft. Nondistended. Nontender. NEUROLOGIC: Alert and oriented. Cranial nerves II through XII grossly intact. ASSESSMENT: 1. Headache PLAN: No surgical intervention is recommended at this time. Patient is stable from a surgical standpoint. We will sign off. Please reconsult if needed. Nurse practitioner note has been reviewed by physician. Signing provider agrees with the documented findings, assessment, and plan of care. Objective - Vital Signs Vital signs: Vital Signs Temp 97.0 F L 10/14/18 06:29 Pulse 58 L 10/14/18 06:29 Resp 18 10/14/18 08:00 BP 159/82 10/14/18 06:29 Pulse Ox 98 10/14/18 06:29 Intake & Output 10/13/18 10/14/18 10/14/18 18:59 06:59 18:59 Intake Total 140 1000 Output Total 400 1500 Balance -260 -500 Weight 83.915 kg Intake: Intake, IV Titration 140 Amount Sodium Chloride 0.9% 1, 140 000 ml @ 20 mls/hr IV . Q24H [facility] Rx#:[id number] Oral 1000 Output: Urine 400 1500 Other: Voiding Method Toilet # Voids 1 - Labs CBC & Chem 7: 10/14/18 08:22 10/14/18 08:22 Labs: Abnormal Lab Results - Last 24 Hours (Table) 10/14/18 10/14/18 Range/Units 08:22 08:22 WBC 10.8 H (3.8-10.6) k/uL Glucose 128 H (74-99) mg/dL
[2018-10-14] MEDS: MORPHINE SULFATE 4 MG/ML SYRINGE IV PRN (12:22)
--- NOTE | 2018-10-14 14:16 | P.DS ---
Providers Date of admission: 10/13/18 07:42 Expected date of discharge: 10/14/18 Attending physician: Phillip Lynn Consults: 10/13/18 07:43 Consult Physician Routine Consulting Provider: Lanre Ruiz Consult Reason/Comments: possible scalp abscess Do you want consulting provider notified?: Yes 10/13/18 14:17 Consult Physician Routine Consulting Provider: Krishan Kennedy Consult Reason/Comments: Abscess Do you want consulting provider notified?: Yes Primary care physician: Salima Mccollum Hospital Course: Discharge diagnosis 1. Headache with possible scalp abscess. Head CT completed showing fluid density superficial to the right ischial region with subcutaneous fat stranding is noted this is new from the previous exam and may represent subcutaneous, injury or inflammation/infection. Please correlate clinically. No underlying osseous of now abnormality identified. No acute intracranial process identified. Patient was seen by surgical services no surgical intervention recommended at this time. Patient can be discharged per surgical services. Patient was also evaluated by infectious disease. Discussed case with Dr. Chang per ID patient can be discharged home with doxycycline for 1 week. 2. History of diverticulitis with perforation. Patient had colostomy but has been reversed last year 3. History of essential hypertension 4. History of COPD 5. History of GERD 6. History of DVT. Patient reports this is many years ago and was is not currently on anticoagulation 7. History of coronary artery disease with previous stents. Patient states this wasn't 2000 does not require current anticoagulation 8. History of hyperlipidemia 9. Previous fall downstairs which patient required shunt in 2006. 10. History of pneumonia 11. History of chronic pain 12. History of TIA in 2009 13. Generalized pruritus. Patient reports is his been intermittently occurring for many months. Patient to follow-up with dermatology services outpatient for further workup and management Hospital course This is a 58-year-old male patient of Dr. Mccollum. Patient presented to the ER with complaints of headache that has been increasing over the past few days. Patient also started complaining of swelling. Patient states that the swelling has been occurring for 2-3 months. Patient denies any trauma or falls. Patient denies any open incisions to head. Patient does have a past medical history of coronary artery disease, chest pain, COPD, CVA, DVT, GERD, GI bleed, hearing disorder, hyperlipidemia, hypertension, liver disease, myocardial infarction, osteoarthritis, pneumonia, heart cath with stents, anxiety and depression and nicotine dependence. Patient denies alcohol consumption. Head CT completed showing fluid density superficial to the right ischial region with subcutaneous fat stranding is noted. This is new from the previous examination and may represent subacute traumatic injury or inflammation/infection. Please correlate clinically. No underlining osseous anatomy abnormality identified. No acute intracranial process identified. Surgical services have been consulted for further evaluation. Patient is afebrile. White blood cell count normal at 10.1. Will consult infectious disease. At this time patient is still complaining of mild headache. No open lesion or increased edema noted to exam. Tylenol morphine has been ordered. Patient denies chest pain or shortness of breath. Patient denies nausea vomiting or diarrhea. Patient denies any urinary burning or frequency. On 10/14/2018 patient is alert and oriented 3. Patient was evaluated by infectious disease and surgical services no further workup needed at this time. Patient will be discharged home on doxycycline per ID recommendation. Patient to follow-up closely with PCP. Recommending also patient to follow with dermatology services for generalized pruritus. At this time patient denies chest pain or shortness of breath. Patient denies nausea vomiting or diarrhea. Patient denies any urinary burning or frequency. I performed an examination of the patient and discussed their management with the Nurse Practitioner. I have reviewed the Nurse Practitioner's notes and agree with the documented findings and plan of care Patient Condition at Discharge: Stable Plan - Discharge Summary Discharge Rx Participant: No New Discharge Prescriptions: New Doxycycline [Vibramycin] 100 mg PO BID 7 Days #14 capsule Continue hydrALAZINE HCL 50 mg PO Q12H Furosemide [Lasix] 40 mg PO DAILY Atorvastatin [Lipitor] 80 mg PO HS Aspirin 81 mg PO DAILY Atenolol 100 mg PO DAILY Discharge Medication List Atorvastatin [Lipitor] 80 mg PO HS 11/10/17 [History] Furosemide [Lasix] 40 mg PO DAILY 11/10/17 [History] hydrALAZINE HCL 50 mg PO Q12H 11/10/17 [History] Aspirin 81 mg PO DAILY 01/21/18 [History] Atenolol 100 mg PO DAILY 10/13/18 [History] Doxycycline [Vibramycin] 100 mg PO BID 7 Days #14 capsule 10/14/18 [Rx] Follow up Appointment(s)/Referral(s): Salima Mccollum DO [Primary Care Provider] - 1-2 days Kristy Gonzalez MD [STAFF PHYSICIAN] - 1 Week Activity/Diet/Wound Care/Special Instructions: Activity as tolerated Diet regular Patient to follow-up with superintendent pier for itching and rash Discharge Disposition: HOME SELF-CARE
[2018-10-14 14:38] VITALS: BP 120/65; RESP 16; TEMP 98
--- NOTE | 2018-10-14 17:08 | PN ---
PROGRESS NOTE DATE OF SERVICE: 10/14/2018 REASON FOR FOLLOWUP: Abnormal CT with a question of posterior occipital area, folliculitis with infection. INTERVAL HISTORY: The patient was seen on rounds earlier this afternoon. The patient has been afebrile. He is still complaining of pain to the occipital area, more of a dull aching pain, 3/10, and no radiation. Denies having any chest pain or shortness of breath or cough. No abdominal pain or any diarrhea. PHYSICAL EXAMINATION: Blood pressure 120/65 with a pulse of 58, temperature 98. He is 92% on room air. General description is a middle-aged male up in the bed in no distress. HEENT EXAMINATION: Posterior occipital area currently with no swelling or redness or any induration. LUNGS: Unlabored breathing. Clear to auscultation anteriorly. HEART: S1, S2. Regular rate and rhythm. ABDOMEN: Soft. No tenderness. LABS: White count 10.8, BUN of 15, creatinine 0.66. DIAGNOSTIC IMPRESSION AND PLAN: Patient with abnormal CT of the brain, concerning for possible occipital area inflammation or fluid. Clinically no significant inflammation or any swelling or redness has been noted. We will give a short course of oral doxycycline 100 mg twice a day for 7 to 10 days with close outpatient followup. Plan of care was discussed with the nurse practitioner for the primary team. DC / NIDHIN: [id number] /
== END 2018-10-14 14:49 | disposition home or self-care (01) ==
LOC: EC 04:03 → INTOOBSV 07:42 → 4MS4W 07:42
PROVIDERS: ADMIT Internal Medicine; ATTEND Internal Medicine
DX: R51 Headache (principal); R22.0 Localized swelling, mass and lump, head; I10 Essential (primary) hypertension; J44.9 Chronic obstructive pulmonary disease, unspecified; K21.9 Gastro-esophageal reflux disease without esophagitis; I25.10 Atherosclerotic heart disease of native coronary artery without angina pectoris; E78.5 Hyperlipidemia, unspecified; G89.29 Other chronic pain; L29.9 Pruritus, unspecified; I25.2 Old myocardial infarction; M19.90 Unspecified osteoarthritis, unspecified site; M54.9 Dorsalgia, unspecified; F17.200 Nicotine dependence, unspecified, uncomplicated; I73.9 Peripheral vascular disease, unspecified; M54.5 Low back pain; H91.92 Unspecified hearing loss, left ear; E66.9 Obesity, unspecified; Z68.29 Body mass index [BMI] 29.0-29.9, adult; Z79.899 Other long term (current) drug therapy; Z79.82 Long term (current) use of aspirin; Z86.718 Personal history of other venous thrombosis and embolism; Z95.5 Presence of coronary angioplasty implant and graft; Z87.19 Personal history of other diseases of the digestive system; Z87.01 Personal history of pneumonia (recurrent); Z86.73 Personal history of transient ischemic attack (TIA), and cerebral infarction without residual deficits; Z86.19 Personal history of other infectious and parasitic diseases; Z87.09 Personal history of other diseases of the respiratory system; Z91.81 History of falling; Z86.14 Personal history of Methicillin resistant Staphylococcus aureus infection; Z83.2 Family history of diseases of the blood and blood-forming organs and certain disorders involving the immune mechanism; Z80.9 Family history of malignant neoplasm, unspecified
CPT/HCPCS: 96376 ×2; 96365; 96366; 96375; 99285; 36415; 80053 ×2; 85025 ×2; 86140; 70450; G0378 ×2; J2543; J2270 ×2

== ENCOUNTER 2018-10-20 12:34 | Emergency (ER) | payer MEDICARE ==
[2018-10-20] MEDS ORDERED: METOCLOPRAMIDE 5 MG/ML 2 ML VIAL IVP STA (12:52)
[2018-10-20] MEDS ORDERED: diphenhydrAMINE 50 MG/ML 1 ML VIAL IVP STA (12:52)
[2018-10-20] MEDS ORDERED: MORPHINE SULFATE 4 MG/ML SYRINGE IV STA (12:52)
[2018-10-20] MEDS ORDERED: SODIUM CHLORIDE 0.9% 500 ML 500 ML IV STA (12:52)
--- NOTE | 2018-10-20 13:57 | CT ---
EXAMINATION TYPE: CT brain wo con DATE OF EXAM: 10/20/2018 COMPARISON: 10/13/2018 INDICATION: COX, nausea and vomiting DLP: 1056.6 mGycm, Automated exposure control for dose reduction was used. CONTRAST: None CT of the brain is performed utilizing 3 mm thick sections through the posterior fossa and 3 mm thick sections through the remaining calvarium. Study is performed within 24 hours of arrival to the hosp ital. No abnormal hyperdensity is present to suggest an acute intracranial hemorrhage. No mass lesion is evident. No acute infarcts are evident. Ventricles and sulci are appropriate for the patient age. Paranasal sinuses and mastoid air cells within the [id number] are clear. IMPRESSIONS: 1. No acute intracranial process.
--- NOTE | 2018-10-20 14:06 | XR ---
EXAMINATION TYPE: XR chest 2V DATE OF EXAM: 10/20/2018 COMPARISON: 01/25/2018 HISTORY: Headache, vomiting, and dizziness TECHNIQUE: Frontal and lateral views of the chest are obtained. FINDINGS: There is mild pulmonary vascular congestion. Heart is mildly enlarged. No focal consolidat ion, pleural effusion or pneumothorax. Osseous structures appear intact. IMPRESSION: Findings favoring mild congestive heart failure.
--- NOTE | 2018-10-20 14:17 | CT ---
EXAMINATION TYPE: CT angio head neck DATE OF EXAM: 10/20/2018 HISTORY: COX, nausea and vomiting COMPARISON: None CT DLP: 399.8 mGycm. Automated Exposure Control for Dose Reduction was Utilized. TECHNIQUE: CTA scan of the neck is performed with IV Contrast, patient injected with 65 mL of Isovue 370, axial images are obtained, coronal and sagittal reformatted images are reviewed. Three-D recons tructed images are created on an independent workstation and reviewed. FINDINGS: Carotid/Vascular Structures: There is a three-vessel arch. Vertebral arteries are codominant. Some va scular calcification is in the carotid vessels. The carotid bifurcations appear without stenosis. No flow-limiting stenosis is evident. [place]: The internal carotid arteries bifurcate into A1 and M1 segments. The anterior commu nicating artery is patent. A2 segments appear normal. Middle cerebral artery branching appears normal . Vertebral basilar system is normal. Posterior communicating artery on the right is patent. Left po sterior communicating artery is patent. Other: Portion of the thyroid visualized is normal. Lung apices within the [id number] are clear. S ome emphysematous changes noted. IMPRESSION: 1. Minimal atheromatous plaquing at the carotid bifurcations without significant flow-limiting stenos is, less than 50% each. 2. Normal [place].
[2018-10-20 14:19] LABS: INR 0.9 (<1.2); Partial Thromboplastin Time 27.2 sec (22.0-30.0); Prothrombin Time 10.2 sec (9.0-12.0)
[2018-10-20 14:23] LABS: Basophils % (A) 0 %; Eosinophils # (A) 0.1 k/uL (0-0.7); Eosinophils % (A) 1 %; HCT 43.5 % (39.0-53.0); HGB 13.9 gm/dL (13.0-17.5); Lymphocytes # (A) 1.9 k/uL (1.0-4.8); Lymphocytes % (A) 20 %; MCV 96.7 fL (80.0-100.0); Mean Platelet Volume 8.2; Monocytes # (A) 0.4 k/uL (0-1.0); Monocytes % (A) 4 %; Neutrophils # (A) 6.7 k/uL (1.3-7.7); Neutrophils % (A) 73 %; Platelet Count 159 k/uL (150-450); RDW 14.8 % (11.5-15.5); WBC 9.3 k/uL (3.8-10.6)
[2018-10-20 14:25] LABS: ALT 20 U/L (21-72); AST 14 U/L (17-59); Alkaline Phosphatase 76 U/L (38-126); Anion Gap 7 mmol/L; Blood Urea Nitrogen 16 mg/dL (9-20); C Reactive Protein <5.0 mg/L (<10.0); Carbon Dioxide 25 mmol/L (22-30); Chloride 99 mmol/L (98-107); Glucose 96 mg/dL (74-99); Potassium 4.2 mmol/L (3.5-5.1); Sodium 131 mmol/L (137-145); Total Bilirubin 0.3 mg/dL (0.2-1.3); Total Protein 5.5 g/dL (6.3-8.2)
[2018-10-20] MEDS ORDERED: MORPHINE SULFATE 4 MG/ML SYRINGE IVP STA (15:24)
--- NOTE | 2018-10-20 15:41 | ED ---
Headache HPI - General Chief Complaint: Headache Stated Complaint: headache, nausea, vomiting Time Seen by Provider: 10/20/18 12:41 Source: patient, family Mode of arrival: EMS - History of Present Illness Initial Comments: The patient is a 58-year-old male that presents to the emergency department with complaint of a headache. [facility] On October 14 he presented and had a CT of his head performed. It demonstrated occipital soft tissue stranding concerning for abscess. Patient was admitted overnight in the hospital. He was seen by infectious disease and surgery. He was discharged home on doxycycline. He returns today with complaint of sudden onset of headache, vertiginous symptoms and vomiting. The headache is graded 10 out of 10 and is global. He has associated vertiginous symptoms which are not positional related. No history of similar in the past. He denies any recent head trauma. Patient is not on any blood thinners except for a baby aspirin. The patient does not normally suffer from migraines. He did not take any medications at home but called EMS immediately due to the violent vomiting. He denies a syncopal episode. No unilateral numbness or weakness. History of TIA in the past but no reported CVA. He denies any chest pain shortness of breath. No ripping or tearing sensation to his back. Denies pleuritic chest pain. Denies any abdominal pain. No diarrhea, melanotic stools or hematochezia. He admits to blurred vision but denies any hearing changes. There are no alleviating, precipitating or modifying factors - Related Data Home Medications Medication Instructions Recorded Confirmed Atorvastatin [Lipitor] 80 mg PO HS 11/10/17 10/20/18 Furosemide [Lasix] 40 mg PO DAILY 11/10/17 10/20/18 hydrALAZINE HCL 50 mg PO Q12H 11/10/17 10/20/18 Aspirin 81 mg PO DAILY 01/21/18 10/20/18 Atenolol 100 mg PO DAILY 10/13/18 10/20/18 Allergies Allergy/AdvReac Type Severity Reaction Status Date / Time No Known Allergies Allergy Verified 10/20/18 13:28 Review of Systems ROS Statement: Those systems with pertinent positive or pertinent negative responses have been documented in the HPI. ROS Other: All systems not noted in ROS Statement are negative. Past Medical History Past Medical History: Chest Pain / Angina, COPD, Deep Vein Thrombosis (DVT), GERD/Reflux, Hyperlipidemia, Hypertension, Myocardial Infarction ([place]), Osteoarthritis (OA) Additional Past Medical History / Comment(s): History of hepatitis A, chronic pain, gout, "kidneys shut down x2 when sick". Back pain, TIA 2009 Last Myocardial Infarction Date:: 1999 History of Any Multi-Drug Resistant Organisms: MRSA Date of last positivie culture/infection: 2015 MDRO Source:: face MRSA Past Surgical History: Bowel Resection, Heart Catheterization With Stent, Hernia Repair, Orthopedic Surgery Additional Past Surgical History / Comment(s): Shoulder surgery, hernia, cataracts, pain clinic procedures, colostomy. Past Anesthesia/Blood Transfusion Reactions: No Reported Reaction Date of Last Stent Placement:: 1999 Past Psychological History: Anxiety, Depression Smoking Status: Current every day smoker Past Alcohol Use History: Daily Past Drug Use History: None Reported - Past Family History Mother Family Medical History: Cancer, Myocardial Infarction ([place]) Additional Family Medical History / Comment(s): Mother had unknown type of cancer. She of a [place] at the age of 68yrs. Father Family Medical History: Myocardial Infarction ([place]) Additional Family Medical History / Comment(s): Father from his heart "exploding" at the age of 58 yrs. Sister(s) Family Medical History: Cancer Additional Family Medical History / Comment(s): Sisters x2 General Exam General appearance: alert, anxious, other (Patient is actively vomiting in the examination room.) Head exam: Present: atraumatic, normocephalic Eye exam: Present: PERRL, EOMI, other (mild conjunctival injection) Pupils: Present: normal accommodation ENT exam: Present: normal exam, mucous membranes moist, TM's normal bilaterally Neck exam: Present: normal inspection. Absent: tenderness, meningismus Respiratory exam: Present: normal lung sounds bilaterally. Absent: wheezes, rales, rhonchi, decreased breath sounds Cardiovascular Exam: Present: normal rhythm, bradycardia GI/Abdominal exam: Present: soft, normal bowel sounds. Absent: distended, tenderness Extremities exam: Present: normal inspection, full ROM Back exam: Present: normal inspection, full ROM Neurological exam: Present: alert, oriented X3, CN II-XII intact Psychiatric exam: Present: normal affect, normal mood Skin exam: Present: warm, dry, intact Course Vital Signs 10/20/18 10/20/18 10/20/18 12:46 13:00 13:30 Pulse Rate 54 L 52 L Respiratory 30 H Rate Blood Pressure 158/87 158/87 163/84 O2 Sat by Pulse 99 98 Oximetry 10/20/18 10/20/18 10/20/18 14:00 14:30 15:00 Pulse Rate 53 L 47 L Respiratory 11 L 9 L 50 H Rate Blood Pressure 166/83 169/117 155/72 O2 Sat by Pulse 98 98 99 Oximetry 10/20/18 10/20/18 10/20/18 15:30 16:00 16:27 Pulse Rate 48 L 49 L 54 L Respiratory 11 L 11 L 18 Rate Blood Pressure 156/89 150/80 139/70 O2 Sat by Pulse 97 99 97 Oximetry Medical Decision Making - Medical Decision Making The patient was seen by myself. He is placed into room 2. He is placed continuous pulse ox and cardiac monitoring. A 12-lead EKG was performed which demonstrates a sinus bradycardia with a ventricular rate of 55. OR interval is 182 QRS 94 QTC of 430. No acute ST segment elevations or depressions concerning for ischemic changes. We did obtain IV access. The patient was given a liter bolus of 0.9% normal saline. He was provided with 10 mg of Reglan and 25 mg IV Benadryl. He was previously administered 4 mg of Zofran by EMS however he continues to vomit. The patient is also given 4 mg of morphine for his pain. He is sent immediately for CT of his brain without contrast. CT angios of his head and neck were also performed. Upon return the results I did discuss them with the patient and his daughter at bedside. He states that he has had improvement in his headache however his vertiginous symptoms persist. He is provided with 5 mg of Valium. As the patient was recently seen in the hospital and continues to have persistent vertiginous symptoms with headache I did recommend MRI of the patient's brain. I also recommended neurology evaluation. The patient and his family at bedside did agree to this. I recommended transfer to [facility] where the services are available. They did agree. I called and discussed the case with Dr. Mars at [facility] who did accepted transfer of the patient. The patient was then transferred in stable condition - Differential Diagnosis Acute migraine cephalgia, acute vertigo, VBI, TIA - Lab Data Result diagrams: 10/20/18 13:59 10/20/18 13:59 Lab Results 10/20/18 10/20/18 10/20/18 Range/Units 13:59 13:59 13:59 WBC 9.3 (3.8-10.6) k/uL RBC 4.50 (4.30-5.90) m/uL Hgb 13.9 (13.0-17.5) gm/dL Hct 43.5 (39.0-53.0) % MCV 96.7 (80.0-100.0) fL MCH 31.0 (25.0-35.0) pg MCHC 32.0 (31.0-37.0) g/dL RDW 14.8 (11.5-15.5) % Plt Count 159 (150-450) k/uL Neutrophils % 73 % Lymphocytes % 20 % Monocytes % 4 % Eosinophils % 1 % Basophils % 0 % Neutrophils # 6.7 (1.3-7.7) k/uL Lymphocytes # 1.9 (1.0-4.8) k/uL Monocytes # 0.4 (0-1.0) k/uL Eosinophils # 0.1 (0-0.7) k/uL Basophils # 0.0 (0-0.2) k/uL ESR Cancelled PT (9.0-12.0) sec INR (<1.2) APTT (22.0-30.0) sec Sodium 131 L (137-145) mmol/L Potassium 4.2 (3.5-5.1) mmol/L Chloride 99 (98-107) mmol/L Carbon Dioxide 25 (22-30) mmol/L Anion Gap 7 mmol/L BUN 16 (9-20) mg/dL Creatinine 0.56 L (0.66-1.25) mg/dL Est GFR (CKD-EPI)AfAm >90 (>60 ml/min/1.73 sqM) Est GFR (CKD-EPI)NonAf >90 (>60 ml/min/1.73 sqM) Glucose 96 (74-99) mg/dL Plasma Lactic Acid Joce 0.7 (0.7-2.0) mmol/L Calcium 8.0 L (8.4-10.2) mg/dL Total Bilirubin 0.3 (0.2-1.3) mg/dL AST 14 L (17-59) U/L ALT 20 L (21-72) U/L Alkaline Phosphatase 76 (38-126) U/L Troponin I (0.000-0.034) ng/mL C-Reactive Protein <5.0 (<10.0) mg/L Total Protein 5.5 L (6.3-8.2) g/dL Albumin 3.0 L (3.5-5.0) g/dL 10/20/18 10/20/18 Range/Units 13:59 13:59 WBC (3.8-10.6) k/uL RBC (4.30-5.90) m/uL Hgb (13.0-17.5) gm/dL Hct (39.0-53.0) % MCV (80.0-100.0) fL MCH (25.0-35.0) pg MCHC (31.0-37.0) g/dL RDW (11.5-15.5) % Plt Count (150-450) k/uL Neutrophils % % Lymphocytes % % Monocytes % % Eosinophils % % Basophils % % Neutrophils # (1.3-7.7) k/uL Lymphocytes # (1.0-4.8) k/uL Monocytes # (0-1.0) k/uL Eosinophils # (0-0.7) k/uL Basophils # (0-0.2) k/uL ESR PT 10.2 (9.0-12.0) sec INR 0.9 (<1.2) APTT 27.2 (22.0-30.0) sec Sodium (137-145) mmol/L Potassium (3.5-5.1) mmol/L Chloride (98-107) mmol/L Carbon Dioxide (22-30) mmol/L Anion Gap mmol/L BUN (9-20) mg/dL Creatinine (0.66-1.25) mg/dL Est GFR (CKD-EPI)AfAm (>60 ml/min/1.73 sqM) Est GFR (CKD-EPI)NonAf (>60 ml/min/1.73 sqM) Glucose (74-99) mg/dL Plasma Lactic Acid Joce (0.7-2.0) mmol/L Calcium (8.4-10.2) mg/dL Total Bilirubin (0.2-1.3) mg/dL AST (17-59) U/L ALT (21-72) U/L Alkaline Phosphatase (38-126) U/L Troponin I <0.012 (0.000-0.034) ng/mL C-Reactive Protein (<10.0) mg/L Total Protein (6.3-8.2) g/dL Albumin (3.5-5.0) g/dL - EKG Data EKG shows normal: sinus rhythm Rate: bradycardia - Radiology Data Radiology results: report reviewed Patient does have a CT of the brain performed without contrast. CT angios of the head and neck are also performed. The patient has less than 50% stenosis at the carotid bifurcation. No acute occlusions. No areas of hemorrhage. chest x-ray is performed and demonstrates mild pulmonary vascular congestion Disposition Clinical Impression: Headache, Intractable headache Disposition: OTHER INSTITUTION NOT DEFINED Condition: Stable Is patient prescribed a controlled substance at d/c from ED?: No Referrals: Salima Mccollum DO [Primary Care Provider] - 1-2 days - Out of Hospital Transfer - Req. Specs Out of Hospital Transfer - Requested Specifics: Other Emergency Center (The patient is transferred to [facility] in stable condition)
[2018-10-20] MEDS ORDERED: DIAZEPAM 5 MG/ML 2 ML INJ IVP STA (15:45)
[2018-10-20 16:28] VITALS: RESP 18
[2018-10-20 18:04] VITALS: BP 148/68; PULSE 48; TEMP 97.9
== END 2018-10-20 18:00 | disposition other institution (70) ==
LOC: EC 12:34
DX: R51 Headache (principal); R11.2 Nausea with vomiting, unspecified; R00.1 Bradycardia, unspecified; E78.5 Hyperlipidemia, unspecified; I10 Essential (primary) hypertension; I25.2 Old myocardial infarction; F17.200 Nicotine dependence, unspecified, uncomplicated; Z86.73 Personal history of transient ischemic attack (TIA), and cerebral infarction without residual deficits; Z86.14 Personal history of Methicillin resistant Staphylococcus aureus infection; Z95.5 Presence of coronary angioplasty implant and graft; Z79.82 Long term (current) use of aspirin; Z79.899 Other long term (current) drug therapy
CPT/HCPCS: 36415; 93005; 80053; 83605; 84484; 85025; 85610; 85730; 86140; 71046; 70496; 70450; 70498; 99285; 96374; 96375 ×3; 96376; 96361 ×5; J2270; J1200; J2765; J3360; Q9967

== ENCOUNTER 2019-03-12 08:35 | Inpatient (IN) | payer MEDICARE ==
[2019-03-12] MEDS ORDERED: SODIUM CHLORIDE 0.9% 1,000 ML IV STA ×2 (08:53)
[2019-03-12] MEDS ORDERED: ASPIRIN 81 MG PO STA (08:54)
--- NOTE | 2019-03-12 09:01 | ED ---
Neuro HPI - General Chief Complaint: Neuro Symptoms/Deficit Stated Complaint: neuro deficit Time Seen by Provider: 03/12/19 08:41 Source: EMS, RN notes reviewed, old records reviewed Mode of arrival: EMS Limitations: no limitations - History of Present Illness Is the patient presenting with stroke symptoms?: Yes Last Known Well Date: 03/12/19 Last Known Well Time: 05:30 -: awoke with symptoms Initial Comments: Patient is a 4-year-old male history of CVA, GERD, hyperlipidemia, MIs and strokes. He presents today with some left-sided weakness and expressive aphasia according to daughter. Patient reportedly woke her up to check her pulse and at that time was having an intelligible conversation. Patient has daughter reports this happened at 8 AM today. Patient's symptoms of aphasia probably started during the night. Patient reported that he has chronic neck pain and headaches after his history of stroke a few months ago. He also complains of some chronic abdominal pain. Patient states that he has history of bowel resection and since then times he has abdominal pain as well. She reportedly has been out of his Lasix since Saturday. Complains of some left facial swelling. Location: left face (Tingling) Place: home Treatments Prior to Arrival: oxygen - Related Data Home Medications: Home Medications Medication Instructions Recorded Confirmed Atorvastatin [Lipitor] 80 mg PO HS 11/10/17 03/12/19 Furosemide [Lasix] 40 mg PO DAILY 11/10/17 03/12/19 hydrALAZINE HCL 50 mg PO Q12H 11/10/17 03/12/19 Aspirin 650 mg PO BID 03/12/19 03/12/19 Atenolol [Tenormin] 50 mg PO DAILY 03/12/19 03/12/19 DULoxetine HCL [Cymbalta] 30 mg PO DAILY 03/12/19 03/12/19 Famotidine [Pepcid] 20 mg PO BID 03/12/19 03/12/19 Gabapentin 600 mg PO BID 03/12/19 03/12/19 OXcarbazepine [Trileptal] 450 mg PO BID 03/12/19 03/12/19 Omeprazole [PriLOSEC] 20 mg PO DAILY 03/12/19 03/12/19 Varenicline [Chantix Continuing 1 mg PO BID 03/12/19 03/12/19 Pack] Allergies/Adverse Reactions: Allergies Allergy/AdvReac Type Severity Reaction Status Date / Time No Known Allergies Allergy Verified 03/12/19 09:52 Review of Systems ROS Statement: Those systems with pertinent positive or pertinent negative responses have been documented in the HPI. ROS Other: All systems not noted in ROS Statement are negative. General Exam - General Exam Comments Initial Comments: This is a 4-year-old male. Alert and oriented 3. Patient has some slurred speech. This is worse according to daughter than usual. Limitations: no limitations General appearance: alert Head exam: Present: atraumatic, normocephalic, normal inspection Eye exam: Present: normal appearance, PERRL, EOMI. Absent: scleral icterus, conjunctival injection, periorbital swelling ENT exam: Present: normal exam Neck exam: Present: normal inspection. Absent: tenderness, meningismus, lymphadenopathy Respiratory exam: Present: normal lung sounds bilaterally. Absent: respiratory distress, wheezes, rales, rhonchi, stridor Cardiovascular Exam: Present: regular rate, normal rhythm, normal heart sounds. Absent: systolic murmur, diastolic murmur, rubs, gallop, clicks GI/Abdominal exam: Present: soft, normal bowel sounds, other (incision site ). Absent: distended, tenderness, guarding, rebound, rigid Extremities exam: Present: normal inspection, full ROM, normal capillary refill. Absent: tenderness, pedal edema, joint swelling, calf tenderness Back exam: Present: normal inspection Neurological exam: Present: alert, oriented X3, CN II-XII intact Expanded Speech: Present: expressive aphasia (slurred muffled speech) Cranial nerves: EOM's Intact: Normal, Facial Sensation: Abnormal Left Cerebellar function: Romberg: Normal Upper motor neuron: Pronator Drift: Normal Sensory exam: Upper Extremity Light Touch: Normal, Lower Extremity Light Touch: Normal Motor strength exam: RUE: 5, LUE: 5, RLE: 5, LLE: 5 Eye Response: (4) open spontaneously Motor Response: (6) obeys commands Verbal Response: (5) oriented Howe Total: 15 Psychiatric exam: Present: normal affect, normal mood Skin exam: Present: warm (incision site. ), dry, intact, normal color. Absent: rash Stroke MDM - Lab Data Result diagrams: 03/12/19 08:45 03/12/19 08:45 Lab Results 03/12/19 03/12/19 03/12/19 Range/Units 08:45 08:45 08:45 WBC 9.8 (3.8-10.6) k/uL RBC 4.91 (4.30-5.90) m/uL Hgb 15.7 (13.0-17.5) gm/dL Hct 47.1 (39.0-53.0) % MCV 96.0 (80.0-100.0) fL MCH 32.0 (25.0-35.0) pg MCHC 33.3 (31.0-37.0) g/dL RDW 15.2 (11.5-15.5) % Plt Count 257 (150-450) k/uL Neutrophils % 69 % Lymphocytes % 22 % Monocytes % 6 % Eosinophils % 1 % Basophils % 1 % Neutrophils # 6.8 (1.3-7.7) k/uL Lymphocytes # 2.2 (1.0-4.8) k/uL Monocytes # 0.6 (0-1.0) k/uL Eosinophils # 0.1 (0-0.7) k/uL Basophils # 0.1 (0-0.2) k/uL PT 9.8 (9.0-12.0) sec INR 0.9 (<1.2) APTT 26.3 (22.0-30.0) sec Sodium 138 (137-145) mmol/L Potassium 4.2 (3.5-5.1) mmol/L Chloride 98 (98-107) mmol/L Carbon Dioxide 29 (22-30) mmol/L Anion Gap 11 mmol/L BUN 10 (9-20) mg/dL Creatinine 1.01 (0.66-1.25) mg/dL Est GFR (CKD-EPI)AfAm >90 (>60 ml/min/1.73 sqM) Est GFR (CKD-EPI)NonAf 81 (>60 ml/min/1.73 sqM) Glucose 149 H (74-99) mg/dL Calcium 9.4 (8.4-10.2) mg/dL Total Bilirubin 1.0 (0.2-1.3) mg/dL AST 26 (17-59) U/L ALT 16 L (21-72) U/L Alkaline Phosphatase 84 (38-126) U/L Troponin I (0.000-0.034) ng/mL NT-Pro-B Natriuret Pep pg/mL Total Protein 7.9 (6.3-8.2) g/dL Albumin 4.5 (3.5-5.0) g/dL Urine Color Urine Appearance (Clear) Urine pH (5.0-8.0) Ur Specific [place] (1.001-1.035) Urine Protein (Negative) Urine Glucose (UA) (Negative) Urine Ketones (Negative) Urine Blood (Negative) Urine Nitrite (Negative) Urine Bilirubin (Negative) Urine Urobilinogen (<2.0) mg/dL Ur Leukocyte Esterase (Negative) Urine Opiates Screen (NotDetected) Ur Oxycodone Screen (NotDetected) Urine Methadone Screen (NotDetected) Ur Propoxyphene Screen (NotDetected) Ur Barbiturates Screen (NotDetected) U Tricyclic Antidepress (NotDetected) Ur Phencyclidine Scrn (NotDetected) Ur Amphetamines Screen (NotDetected) U Methamphetamines Scrn (NotDetected) U Benzodiazepines Scrn (NotDetected) Urine Cocaine Screen (NotDetected) U Marijuana (THC) Screen (NotDetected) 03/12/19 03/12/19 03/12/19 Range/Units 08:45 08:45 10:51 WBC (3.8-10.6) k/uL RBC (4.30-5.90) m/uL Hgb (13.0-17.5) gm/dL Hct (39.0-53.0) % MCV (80.0-100.0) fL MCH (25.0-35.0) pg MCHC (31.0-37.0) g/dL RDW (11.5-15.5) % Plt Count (150-450) k/uL Neutrophils % % Lymphocytes % % Monocytes % % Eosinophils % % Basophils % % Neutrophils # (1.3-7.7) k/uL Lymphocytes # (1.0-4.8) k/uL Monocytes # (0-1.0) k/uL Eosinophils # (0-0.7) k/uL Basophils # (0-0.2) k/uL PT (9.0-12.0) sec INR (<1.2) APTT (22.0-30.0) sec Sodium (137-145) mmol/L Potassium (3.5-5.1) mmol/L Chloride (98-107) mmol/L Carbon Dioxide (22-30) mmol/L Anion Gap mmol/L BUN (9-20) mg/dL Creatinine (0.66-1.25) mg/dL Est GFR (CKD-EPI)AfAm (>60 ml/min/1.73 sqM) Est GFR (CKD-EPI)NonAf (>60 ml/min/1.73 sqM) Glucose (74-99) mg/dL Calcium (8.4-10.2) mg/dL Total Bilirubin (0.2-1.3) mg/dL AST (17-59) U/L ALT (21-72) U/L Alkaline Phosphatase (38-126) U/L Troponin I <0.012 (0.000-0.034) ng/mL NT-Pro-B Natriuret Pep 241 pg/mL Total Protein (6.3-8.2) g/dL Albumin (3.5-5.0) g/dL Urine Color Yellow Urine Appearance Clear (Clear) Urine pH 6.5 (5.0-8.0) Ur Specific [place] 1.006 (1.001-1.035) Urine Protein Negative (Negative) Urine Glucose (UA) Negative (Negative) Urine Ketones Negative (Negative) Urine Blood Negative (Negative) Urine Nitrite Negative (Negative) Urine Bilirubin Negative (Negative) Urine Urobilinogen <2.0 (<2.0) mg/dL Ur Leukocyte Esterase Negative (Negative) Urine Opiates Screen Detected H (NotDetected) Ur Oxycodone Screen Not Detected (NotDetected) Urine Methadone Screen Not Detected (NotDetected) Ur Propoxyphene Screen Not Detected (NotDetected) Ur Barbiturates Screen Not Detected (NotDetected) U Tricyclic Antidepress Not Detected (NotDetected) Ur Phencyclidine Scrn Not Detected (NotDetected) Ur Amphetamines Screen Detected H (NotDetected) U Methamphetamines Scrn Detected H (NotDetected) U Benzodiazepines Scrn Not Detected (NotDetected) Urine Cocaine Screen Not Detected (NotDetected) U Marijuana (THC) Screen Not Detected (NotDetected) - NIH Stroke Scale 1a. Level of Consciousness: (0) alert 1b. LOC Questions: (0) answers correctly 1c. LOC Commands: (0) performs tasks correctly 2. Best Gaze: (0) normal 3. Visual: (0) no visual loss 4. Facial Palsy: (0) normal symmetrical movement 5a. Motor Arm Left: (0) no drift 5b. Motor Arm Right: (0) no drift 6a. Motor Leg Left: (0) no drift 6b. Motor Leg Right: (0) no drift 7. Limb Ataxia: (0) absent 8. Sensory: (1) mild/moderate sensory loss 9. Best Language: (1) mild/moderate aphasia 10. Dysarthria: (0) normal 11. Extinction/Inattention: (0) no abnormality NIH Score total: 2 - Thrombolytic Inclusion/Exclusion Thrombolytic Exclusion Criteria: Symptom Onset > 3 Hours - Medical Decision Making Patient is a 4-year-old male who presents emergency department today with daughter was initial concern for possible stroke as Patient woke up and a.m. and with daughter reports he had some aphasia, complaining of left-sided facial tingling. This time Patient continues to have some muffled speech. At this time patient's CT of the brain was negative for any acute intracranial process. Lab work was reviewed and unremarkable. While in emergency department he complains of chronic neck and abdominal pain. Chest x-ray was reviewed and normal. KUB x-ray showed questionable free air. Recommended CT. CT on pelvis was completed and does show some evidence of postsurgical changes but no acute process. No free air. Patient was reported this time of admission for strokelike symptoms and we'll consult neurology. Patient is agreeable to this. Daughter except the treatment plan. Patient was given one aspirin. - Radiology Data Radiology results: image reviewed No acute intracranial process. No focal neurologic symptoms persist MRI of the brain without contrast may be referred. Chest x-ray is negative for any acute process. Abdominal x-ray shows nonspecific abdomen. Few prominent bowel loops. Lucency on the right margin of the abdomen may represent extension of the fat pad however CT of abdomen and pelvis went to exclude free air. - EKG Data -: EKG Interpreted by [place] EKG shows normal: sinus rhythm Rate: normal 03/12/19 09:05 EKG performed a 51 shows normal sinus rhythm, inferior infarct age undetermined. Ventricular rate of 78 bpm. Intervals 154 ms. QRS duration is 104 ms. QT QTc is 386/440 ms. Past Medical History Past Medical History: Chest Pain / Angina, COPD, Deep Vein Thrombosis (DVT), GERD/Reflux, Hyperlipidemia, Hypertension, Myocardial Infarction ([place]), Osteoarthritis (OA) Additional Past Medical History / Comment(s): History of hepatitis A, chronic pain, gout, "kidneys shut down x2 when sick". Back pain, TIA 2009 Last Myocardial Infarction Date:: 1999 History of Any Multi-Drug Resistant Organisms: MRSA Date of last positivie culture/infection: 2016 MDRO Source:: face MRSA Past Surgical History: Bowel Resection, Heart Catheterization With Stent, Hernia Repair, Orthopedic Surgery Additional Past Surgical History / Comment(s): Shoulder surgery, hernia, cataracts, pain clinic procedures, colostomy. Past Anesthesia/Blood Transfusion Reactions: No Reported Reaction Date of Last Stent Placement:: 1999 Past Psychological History: Anxiety, Depression Smoking Status: Current every day smoker Past Alcohol Use History: Daily Past Drug Use History: None Reported - Past Family History Mother Family Medical History: Cancer, Myocardial Infarction ([place]) Additional Family Medical History / Comment(s): Mother had unknown type of cancer. She of a [place] at the age of 68yrs. Father Family Medical History: Myocardial Infarction ([place]) Additional Family Medical History / Comment(s): Father from his heart "exploding" at the age of 58 yrs. Sister(s) Family Medical History: Cancer Additional Family Medical History / Comment(s): Sisters x2 Course Vital Signs 03/12/19 03/12/19 03/12/19 08:38 09:32 10:02 Pulse Rate 80 73 60 Respiratory 16 16 20 Rate Blood Pressure 95/68 108/66 130/62 O2 Sat by Pulse 96 98 99 Oximetry 03/12/19 11:02 Pulse Rate 68 Respiratory 16 Rate Blood Pressure 125/75 O2 Sat by Pulse 99 Oximetry - Reevaluation(s) Reevaluation #1: 03/12/19 09:02 NIH score of 2 for garbled speech and left-sided facial tingling and numbness. Disposition Clinical Impression: Aphasia, Chronic abdominal pain, Chronic neck pain, Paresthesia Disposition: ADMITTED IP TO THIS HOSP Condition: Good Is patient prescribed a controlled substance at d/c from ED?: No Referrals: Salima Mccollum DO [Primary Care Provider] - 1-2 days Time of Disposition: 12:41
[2019-03-12] MEDS ORDERED: MORPHINE SULFATE 4 MG/ML SYRINGE IVP STA ×2 (09:08→10:29)
[2019-03-12 09:24] LABS: Basophils # (A) 0.1 k/uL (0-0.2); Basophils % (A) 1 %; Eosinophils # (A) 0.1 k/uL (0-0.7); Eosinophils % (A) 1 %; HCT 47.1 % (39.0-53.0); HGB 15.7 gm/dL (13.0-17.5); Lymphocytes # (A) 2.2 k/uL (1.0-4.8); Lymphocytes % (A) 22 %; MCHC 33.3 g/dL (31.0-37.0); Monocytes # (A) 0.6 k/uL (0-1.0); Monocytes % (A) 6 %; Neutrophils # (A) 6.8 k/uL (1.3-7.7); Neutrophils % (A) 69 %; Platelet Count 257 k/uL (150-450); RBC 4.91 m/uL (4.30-5.90); RDW 15.2 % (11.5-15.5); WBC 9.8 k/uL (3.8-10.6)
--- NOTE | 2019-03-12 09:31 | CT ---
EXAMINATION TYPE: CT brain wo con DATE OF EXAM: 03/12/2019 COMPARISON: 10/20/2018 HISTORY: Neuro deficit CT DLP: 1062.4 mGycm Automated exposure control for dose reduction was used. FINDINGS: No acute intracranial hemorrhage. Extra-axial spaces are clear. No hydrocephalus. Basal cisterns are preserved. [place]-white matter differentiation is preserved. Skull base is intact. Visualized paranasal sinuses and mastoid air cells are clear. No mass effect or midline shift. IMPRESSION: NO ACUTE INTRACRANIAL PROCESS. IF FOCAL NEUROLOGIC SYMPTOMS PERSIST, MRI OF BRAIN WITHOUT CONTRAST MA Y BE PERFORMED.
--- NOTE | 2019-03-12 09:33 | XR ---
EXAMINATION TYPE: XR chest 2V DATE OF EXAM: 03/12/2019 COMPARISON: 10/20/2018 TECHNIQUE: PA and lateral views submitted. HISTORY: Altered mental status FINDINGS: The lungs are clear and there is no pneumothorax, pleural effusion, or focal pneumonia. Arthropathy of the shoulders. Hypertrophic and degenerative change of the spine. IMPRESSION: 1. No acute process.
--- NOTE | 2019-03-12 09:34 | XR ---
EXAMINATION TYPE: XR KUB DATE OF EXAM: 03/12/2019 COMPARISON: NONE HISTORY: Pain TECHNIQUE: One view abdominal series FINDINGS: The osseous structures are intact. The bowel gas pattern is nonspecific. Lung bases are clear. IMPRESSION: 1. Nonspecific abdomen. There are few prominent bowel loops. A lucency along the right margin of the abdomen which may represent distention of the fat pad. However, recommend CT of the abdomen pelvis t o exclude free air.
[2019-03-12 09:35] LABS: ALT 16 U/L (21-72); AST 26 U/L (17-59); African American GFR (CKD) >90 (>60 ml/min/1.73 sqM); Albumin 4.5 g/dL (3.5-5.0); Alkaline Phosphatase 84 U/L (38-126); Anion Gap 11 mmol/L; Blood Urea Nitrogen 10 mg/dL (9-20); Calcium 9.4 mg/dL (8.4-10.2); Carbon Dioxide 29 mmol/L (22-30); Chloride 98 mmol/L (98-107); Glucose 149 mg/dL (74-99); Potassium 4.2 mmol/L (3.5-5.1); Sodium 138 mmol/L (137-145); Total Protein 7.9 g/dL (6.3-8.2)
[2019-03-12 09:39] LABS: INR 0.9 (<1.2); Partial Thromboplastin Time 26.3 sec (22.0-30.0); Prothrombin Time 9.8 sec (9.0-12.0)
[2019-03-12 11:11] LABS: Appearance,Urine Clear (Clear); Bilirubin,Urine Negative (Negative); Blood,Urine Negative (Negative); Color,Urine Yellow; Glucose,Urine (UA) Negative (Negative); Ketones,Urine Negative (Negative); Leukocyte Esterase,Urine Negative (Negative); Nitrite,Urine Negative (Negative); PH, Urine 6.5 (5.0-8.0); Protein,Urine Negative (Negative); Specific Gravity,Urine 1.006 (1.001-1.035); Urobilinogen,Urine <2.0 mg/dL (<2.0)
[2019-03-12 11:23] LABS: Amphetamine Screen,Urine Detected (NotDetected); Barbiturate Screen,Urine Not Detected (NotDetected); Benzodiazepines Screen,Urine Not Detected (NotDetected); Cocaine Screen,Urine Not Detected (NotDetected); Methadone Screen, Urine Not Detected (NotDetected); Opiate Screen,Urine Detected (NotDetected); Oxycodone Screen, Urine Not Detected (NotDetected); Phencyclidine Screen,Urine Not Detected (NotDetected); Tricyclic Antidepressant,Urine Not Detected (NotDetected); Urn Cannabinoid Scrn Not Detected (NotDetected)
--- NOTE | 2019-03-12 11:26 | CT ---
EXAMINATION TYPE: CT abdomen pelvis w con DATE OF EXAM: 03/12/2019 COMPARISON: 11/15/2017 HISTORY: Abdominal pain with a history of colostomy CT DLP: 1080.5 mGycm Automated exposure control for dose reduction was used. TECHNIQUE: Helical acquisition of images was performed from the lung bases through the pelvis. CONTRAST: Performed without Oral Contrast and with IV Contrast, patient injected with 100 ml mL of Isovue 300. FINDINGS: LUNG BASES: No significant abnormality is appreciated. LIVER/GB: No significant abnormality is appreciated. PANCREAS: No significant abnormality is seen. SPLEEN: No significant abnormality is seen. ADRENALS: No significant abnormality is seen. KIDNEYS: No significant abnormality is seen. FREE AIR: No free air is visualized. RETROPERITONEAL ADENOPATHY: None visualized REPRODUCTIVE ORGANS: No significant abnormality is seen URINARY BLADDER: No significant abnormality is seen. PELVIC ADENOPATHY: None visualized. OSSEOUS STRUCTURES: No significant abnormality is seen. BOWEL: Interval reversal of the colostomy seen in the left lower quadrant of the abdomen with postsur gical changes at the rectosigmoid junction. Moderate stool retention in the right colon. No ascites. No bowel obstruction. No loculated fluid collection. IMPRESSION: INTERVAL COLOSTOMY REVERSAL WITH POSTSURGICAL CHANGES NEAR THE RECTOSIGMOID JUNCTION. NO ACUTE PROCES S WITHIN THE ABDOMEN OR PELVIS.
[2019-03-12 15:24] VITALS: BMI 29.4
[2019-03-12] MEDS: SODIUM CHLORIDE 0.9% 1,000 ML IV SCH (15:54)
[2019-03-12] MEDS ORDERED: ACETAMINOPHEN TAB 325 MG TAB PO PRN (19:01)
[2019-03-12] MEDS: GABAPENTIN 300 MG CAP PO SCH (19:29)
--- NOTE | 2019-03-12 19:32 | P.CNNES ---
History of Present Illness Consult date: 03/12/19 Reason for Consult: Aphasia and left-sided weakness Chief complaint: Aphasia and left-sided weakness History of Present Illness: HISTORY OF PRESENT ILLNESS: Thank you for allowing me to evaluate Mr. Jozef Banuelos. Mr. Banuelos is is a 58 year-old man with multiple medical problems as listed below, presenting to [facility] for slurred speech and L-sided weakness. No family at bedside for corroborating information, and patient is not a good historian. Per ED note, daughter had said that patient appeared normal, no deficits around 8am. When I asked patient about alcohol and drug abuse history, patient stated that he got a can of beer from someone early this morning and had a sip because was in pain everywhere and thought beer would help him with his pain. Patient did not know there would be anything in the beer. Patient states that he had similar symptoms with his previous stroke with slurred speech and some L-sided weakness. Difficult to get much detailed history from patient as patient continues to complain of pain everywhere. PAST MEDICAL HISTORY: Coronary artery disease, angina, COPD, TIA in 2010, DVT, GERD, GI bleed, hearing deficit, hyperlipidemia hypertension myocardial infarction, osteoarthritis bronchitis, gout, bilateral carpal tunnel syndrome, diverticular perforation/colostomy with reversal, neuropathy, hepatitis A PAST SURGICAL HISTORY: Appendectomy, bowel resection with colostomy since reversed, heart catheterization with stent, hernia repair, right shoulder surgery, right hip and knee these are surgery HOME MEDICATIONS: Hydralazine, Lasix, Lipitor, Chantix, famotidine, duloxetine, atenolol, omeprazole, oxcarbazepine, aspirin, gabapentin ALLERGIES: No known ALLERGIES SOCIAL HISTORY: Former smoker. Social drinker. Never used drugs FAMILY HISTORY: Father with "exploding heart" for which he . Mother with myocardial infarction and unknown type of cancer. She from heart attack. Sister with unknown cancer. REVIEW OF SYSTEMS: The 14 systems are reviewed and no additional points are identified compared to the review of systems documented history and physical PHYSICAL EXAMINATION: VITAL SIGNS: Pulse 54 respiratory rate 22 blood pressure 114/57 O2 saturation 97% on room air GEN.: NAD, pleasant and cooperative HEENT: NCAT, sclera without icterus NECK: Supple, no carotid bruit SKIN AND EXTREMITIES: Warm to touch, no edema NEURO: MENTAL STATUS: Patient alert and oriented to self, place, time. Able to name the current president. Speech fluent, able to name and repeat, following all commands readily. Some mumbling/slight slurring of speech, but mostly mumbling and difficulty to understand. No right and left disorientation, neglect. CRANIAL NERVES II THROUGH XII: II: Pupils are equal and reactive to light symmetrically. No afferent pupillary defect. Visual batista are intact. III, IV, : No ptosis. Extraocular movements full. No nystagmus. V: Facial sensation intact from V1-3. VII. No clear facial asymmetry. VIII: Hearing intact to finger rub bilaterally. IX, X: Symmetric palate elevation. XII: Shoulder shrug intact. XII: Tongue midline without fasciculation or atrophy. MOTOR: Normal bulk/tone. No pronator drift or tremor. 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 Feet very sensitive and pt reporting significant pain even with the slightest touch COORDINATION: Finger to nose intact. No dysmetria. GAIT: Pt refuses to walk due to pain on the platar side of his feet bilaterally DIAGNOSTIC TESTING: LABORATORY: WBC 9.8 hemoglobin 13.7 platelets 257 89.8 INR 0.9 sodium 138 potassium 4.2 chloride 98 bicarb 29 BUN 1021.01 glucose 149 AST 26 ALT 16 alk phos 84 troponin <0.012 urinalysis negative U tox positive for amphetamine and opiates IMAGING: CT head without contrast 03/12/2019: No acute intracranial process. MRI brain without contrast 04/04/2017: No acute intracranial abnormality. Retention cyst or polyp, left maxillary antrum. Scattered small high signal flare lesions throughout the deep white matter. Nonspecific findings ASSESSMENT and RECOMMENDATIONS: Mr. Vin blackmon is a 58 year-old man with multiple medical problems as listed below, presenting to [facility] for slurred speech and L-sided weakness. At the time of evaluation, patient complaining of pain everywhere, in all his joints, headache, abdominal pain, neck pain. Pt states that slurred speech is his usual baseline. 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 Patient found with utox positive for amphetamines and opiates. It appears that patient's symptoms could have been from drug intoxication, but patient with multiple risk factors for stroke. Will obtain MRI brain w/o contrast first, and if we find acute stroke, we will proceed with full stroke work-up and management. If negative, okay to be discharged from neuro perspective. Patient is already on ASA and statin, which patient endorses compliance. Past Medical History Past Medical History: Chest Pain / Angina, COPD, Deep Vein Thrombosis (DVT), GERD/Reflux, Hyperlipidemia, Hypertension, Myocardial Infarction ([place]), Osteoarthritis ([place]) Additional Past Medical History / Comment(s): History of hepatitis A, chronic pain, gout, "kidneys shut down x2 when sick". Back pain, TIA 2009 Last Myocardial Infarction Date:: 1999 History of Any Multi-Drug Resistant Organisms: MRSA Date of last positivie culture/infection: 2015 MDRO Source:: face MRSA Past Surgical History: Bowel Resection, Heart Catheterization With Stent, Hernia Repair, Orthopedic Surgery Additional Past Surgical History / Comment(s): Shoulder surgery, hernia, cataracts, pain clinic procedures, colostomy. Past Anesthesia/Blood Transfusion Reactions: No Reported Reaction Date of Last Stent Placement:: 1999 Past Psychological History: Anxiety, Depression Smoking Status: Current every day smoker Past Alcohol Use History: Daily Past Drug Use History: None Reported - Past Family History Mother Family Medical History: Cancer, Myocardial Infarction ([place]) Additional Family Medical History / Comment(s): Mother had unknown type of cancer. She of a [place] at the age of 68yrs. Father Family Medical History: Myocardial Infarction ([place]) Additional Family Medical History / Comment(s): Father from his heart "exploding" at the age of 58 yrs. Sister(s) Family Medical History: Cancer Additional Family Medical History / Comment(s): Sisters x2 Medications and Allergies Home Medications Medication Instructions Recorded Confirmed Type Atorvastatin [Lipitor] 80 mg PO HS 11/10/17 03/12/19 History Furosemide [Lasix] 40 mg PO DAILY 11/10/17 03/12/19 History hydrALAZINE HCL 50 mg PO Q12H 11/10/17 03/12/19 History Aspirin 650 mg PO BID 03/12/19 03/12/19 History Atenolol [Tenormin] 50 mg PO DAILY 03/12/19 03/12/19 History DULoxetine HCL [Cymbalta] 30 mg PO DAILY 03/12/19 03/12/19 History Famotidine [Pepcid] 20 mg PO BID 03/12/19 03/12/19 History Gabapentin 600 mg PO BID 03/12/19 03/12/19 History OXcarbazepine [Trileptal] 450 mg PO BID 03/12/19 03/12/19 History Omeprazole [PriLOSEC] 20 mg PO DAILY 03/12/19 03/12/19 History Varenicline [Chantix Continuing 1 mg PO BID 03/12/19 03/12/19 History Pack] Allergies Allergy/AdvReac Type Severity Reaction Status Date / Time No Known Allergies Allergy Verified 03/12/19 09:52 Physical Examination - Vital Signs Vital Signs: Vital Signs Pulse Resp BP Pulse Ox 03/12/19 13:00 54 L 22 115/61 96 03/12/19 12:30 56 L 20 113/39 03/12/19 12:00 57 L 22 111/64 03/12/19 11:31 57 L 22 108/54 03/12/19 11:02 68 16 125/75 99 03/12/19 10:02 60 20 130/62 99 03/12/19 09:32 73 16 108/66 98 03/12/19 08:38 80 16 95/68 96 Intake and Output 03/11/19 03/12/19 03/12/19 22:59 06:59 14:59 Other: Weight 85.275 kg Results - Laboratory Findings CBC and BMP: 03/12/19 08:45 03/12/19 08:45 Abnormal Lab Findings: Abnormal Labs 03/12/19 03/12/19 08:45 10:51 Glucose 149 H ALT 16 L Urine Opiates Screen Detected H Ur Amphetamines Screen Detected H U Methamphetamines Scrn Detected H
[2019-03-12] MEDS: hydrALAZINE HCL 50 MG TAB PO SCH (20:10)
[2019-03-12] MEDS: ATORVASTATIN 80 MG TAB PO SCH (20:10)
[2019-03-12] MEDS: OXcarbazepine 150 MG TAB PO SCH (20:10)
[2019-03-12] MEDS ORDERED: ASPIRIN 325 MG TAB PO SCH (21:00)
[2019-03-12] MEDS: HYDROcodone/APAP 5-325MG 1 EACH TAB PO PRN (21:14)
[2019-03-13] MEDS: HYDROcodone/APAP 5-325MG 1 EACH TAB PO PRN ×2 (03:07→10:06)
[2019-03-13] MEDS: SODIUM CHLORIDE 0.9% 1,000 ML IV SCH ×3 (03:09→18:58)
[2019-03-13 03:56] LABS: Cholesterol 156 mg/dL (<200); HDL Cholesterol 49 mg/dL (40-60); LDL Cholesterol,Calculated 77 mg/dL (0-99); Triglycerides 151 mg/dL (<150)
[2019-03-13] MEDS: ASPIRIN 81 MG PO SCH (08:59)
[2019-03-13] MEDS: hydrALAZINE HCL 50 MG TAB PO SCH ×2 (08:59→20:50)
[2019-03-13] MEDS: GABAPENTIN 300 MG CAP PO SCH ×2 (08:59→20:49)
[2019-03-13] MEDS: DULoxetine HCL 30 MG CAPSULE.DR PO SCH (08:59)
[2019-03-13] MEDS: OXcarbazepine 150 MG TAB PO SCH ×2 (08:59→20:51)
[2019-03-13] MEDS: FUROSEMIDE 40 MG TAB PO SCH (08:59)
[2019-03-13] MEDS: ATENOLOL 50 MG TAB PO SCH (08:59)
[2019-03-13] MEDS ORDERED: ASPIRIN 325 MG TAB PO SCH (09:00)
[2019-03-13] MEDS: PANTOPRAZOLE 40 MG TABLET PO SCH (09:03)
--- NOTE | 2019-03-13 13:28 | MR ---
MR brain without contrast HISTORY: Slurred speech and left-sided weakness Multiplanar multisequence imaging through the brain Correlation to prior brain MRI 04/04/2017, CT brain dated 03/12/2019 There is no restricted diffusion. There is no hemorrhage or hydrocephalus. Scattered hyperintensities are present on inversion recovery T2-weighted sequences within the periventricular, subcortical whit e matter similar to prior exam. Approximately 10-20 lesions are present. Cortical atrophy is likely a ge-related. There are normal vascular flow voids. Cerebellopontine angles, corpus callosum, pituitary , cervical medullary junction are normal. Orbits show symmetric appearance. impression: Stable brain MRI. No acute abnormalities evident. Age-related changes of atrophy and prob able chronic small vessel ischemia.
[2019-03-13] MEDS ORDERED: traMADol 50 MG TAB PO PRN (13:46)
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
--- NOTE | 2019-03-13 13:51 | P.PN ---
Progress Note - Text Progress Note Date: 03/13/19 SUBJECTIVE/INTERVAL EVENTS: No acute overnight events. PHYSICAL EXAMINATION: VITAL SIGNS: Temperature 98.2 pulse rate 64 respiratory rate 18 blood pressure 119/63 O2 saturation 99% on room air GEN.: NAD, pleasant and cooperative HEENT: NCAT, sclera without icterus NECK: Supple SKIN AND EXTREMITIES: Warm to touch, no edema NEURO: MENTAL STATUS: Patient alert and oriented to self, place, time. Able to name the current president. Speech fluent, able to name and repeat, following all commands readily. Some mumbling/slight slurring of speech, but mostly mumbling and difficulty to understand. No right and left disorientation, neglect. CRANIAL NERVES II THROUGH XII: II: Pupils are equal and reactive to light symmetrically. No afferent pupillary defect. Visual batista are intact. III, IV, : No ptosis. Extraocular movements full. No nystagmus. V: Facial sensation intact from V1-3. VII. No clear facial asymmetry. VIII: Hearing intact to finger rub bilaterally. IX, X: Symmetric palate elevation. XII: Shoulder shrug intact. XII: Tongue midline without fasciculation or atrophy. MOTOR: Normal bulk/tone. No pronator drift or tremor. 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 Feet very sensitive and pt reporting significant pain even with the slightest touch COORDINATION: Finger to nose intact. No dysmetria. GAIT: Pt refuses to walk due to pain on the platar side of his feet bilaterally DIAGNOSTIC TESTING: LABORATORY: WBC 9.8 hemoglobin 13.7 platelets 257 89.8 INR 0.9 sodium 138 potassium 4.2 chloride 98 bicarb 29 BUN 1021.01 glucose 149 AST 26 ALT 16 alk phos 84 troponin <0.012 urinalysis negative U tox positive for amphetamine and opiates IMAGING: MRI brain without contrast 03/13/2019: No acute intracranial process. CT head without contrast 03/12/2019: No acute intracranial process. MRI brain without contrast 04/04/2017: No acute intracranial abnormality. Retention cyst or polyp, left maxillary antrum. Scattered small high signal flare lesions throughout the deep white matter. Nonspecific findings ASSESSMENT and RECOMMENDATIONS: Mr. Vin is is a 58 year-old man with multiple medical problems as listed below, presenting to [facility] for slurred speech and L-sided weakness. At the time of evaluation, patient complaining of pain everywhere, in all his joints, headache, abdominal pain, neck pain. Pt states that slurred speech is his usual baseline. 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 Patient found with utox positive for amphetamines and opiates. It appears that patient's symptoms could have been fro m drug intoxication, but patient with multiple risk factors for stroke MRI brain without contrast negative for acute or subacute stroke. Patient is already on ASA and statin, and patient endorses compliance. Unclear why patient is on such high doses of aspirin. Consider lowering aspirin dose to 81 mg daily on this patient has other reasons.
[2019-03-13] MEDS: ATORVASTATIN 80 MG TAB PO SCH (20:49)
[2019-03-13] MEDS ORDERED: traZODone HCL 50 MG TAB PO SCH (21:00)
[2019-03-14] MEDS: SODIUM CHLORIDE 0.9% 1,000 ML IV SCH (06:56)
[2019-03-14] MEDS: FUROSEMIDE 40 MG TAB PO SCH (08:16)
[2019-03-14] MEDS: ATENOLOL 50 MG TAB PO SCH (08:16)
[2019-03-14] MEDS: OXcarbazepine 150 MG TAB PO SCH (08:16)
[2019-03-14] MEDS: ASPIRIN 81 MG PO SCH (08:16)
[2019-03-14] MEDS: PANTOPRAZOLE 40 MG TABLET PO SCH (08:16)
[2019-03-14] MEDS: hydrALAZINE HCL 50 MG TAB PO SCH (08:16)
[2019-03-14] MEDS: DULoxetine HCL 30 MG CAPSULE.DR PO SCH (08:16)
[2019-03-14] MEDS: GABAPENTIN 300 MG CAP PO SCH (08:16)
[2019-03-14] MEDS ORDERED: HYDROcodone/APAP 5-325MG 1 EACH TAB PO ONE (08:33)
[2019-03-14 09:26] VITALS: BP 160/77; PULSE 74; RESP 20; TEMP 97.7
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
--- NOTE | 2019-03-17 11:50 | CDI ---
Documentation Clarification Form Date: 03/17/19 From: Sharon Mejia Phone: If you have a question regarding this query, please contact Ryanne Mejía at [phone] between 8am and 5pm. Admit Date: 03/12/2019 12:07:00 PM Patient Name: Jozef Banuelos Visit Number: [id number] Discharge Date: 03/14/2019 11:54:00 AM ATTENTION: The Clinical Documentation Specialists (CDI) and [facility] Coding Staff appreciate your assistance in clarifying documentation. Please respond to the clarification below the line at the bottom and electronically sign. The CDI & [facility] Coding staff will review the response and follow-up if needed. Please note: Queries are made part of the Legal Health Record. If you have any questions, please contact the author of this message via ITS. Dr. Nicolás Domínguez The patient presented with the following aphasia and left sided weakness. Final diagnosis is amphetamine poisoning of undetermined intent and opioid intoxication delirium. History/Risk Factors: Anxiety, depression, chronic pain Clinical Indicators: aphasia, left sided weakness Lab findings: Urine drug screen: opiates detected, amphetamines detected, methamphetamines detected Treatment: Fluid bolus 1 liter then at 100 ml/hr Consults: Documentation in Dr. Parks's 03/13 progress note states that it appears that patient's symptoms could have been from drug intoxication. In your professional opinion, can you please clarify the amphetamine poisoning and opioid intoxication as? Use Abuse Dependence Other, please specify Unable to determine Abuse MTDD
== END 2019-03-14 11:54 | disposition home or self-care (01) | DRG 918 ==
LOC: EC 08:35 → 3SCARD 12:07
PROVIDERS: ADMIT Family Medicine; ATTEND Family Medicine
DX: T43.621A Poisoning by amphetamines, accidental (unintentional), initial encounter (principal); R47.01 Aphasia; F11.121 Opioid abuse with intoxication delirium; G62.9 Polyneuropathy, unspecified; R53.1 Weakness; F15.10 Other stimulant abuse, uncomplicated; E78.5 Hyperlipidemia, unspecified; F17.200 Nicotine dependence, unspecified, uncomplicated; F32.9 Major depressive disorder, single episode, unspecified; F41.9 Anxiety disorder, unspecified; G89.29 Other chronic pain; H91.90 Unspecified hearing loss, unspecified ear; I10 Essential (primary) hypertension; I25.10 Atherosclerotic heart disease of native coronary artery without angina pectoris; I25.2 Old myocardial infarction; J44.9 Chronic obstructive pulmonary disease, unspecified; K21.9 Gastro-esophageal reflux disease without esophagitis; F10.10 Alcohol abuse, uncomplicated; G56.03 Carpal tunnel syndrome, bilateral upper limbs; M10.9 Gout, unspecified; M19.90 Unspecified osteoarthritis, unspecified site; M54.2 Cervicalgia; M54.9 Dorsalgia, unspecified; R10.9 Unspecified abdominal pain; R20.2 Paresthesia of skin; R41.0 Disorientation, unspecified; Z79.899 Other long term (current) drug therapy; Z79.82 Long term (current) use of aspirin; Z90.49 Acquired absence of other specified parts of digestive tract; Z86.73 Personal history of transient ischemic attack (TIA), and cerebral infarction without residual deficits; Z86.718 Personal history of other venous thrombosis and embolism; Z86.14 Personal history of Methicillin resistant Staphylococcus aureus infection; Z95.5 Presence of coronary angioplasty implant and graft; Z98.42 Cataract extraction status, left eye; Z98.41 Cataract extraction status, right eye; Z96.1 Presence of intraocular lens; Z82.49 Family history of ischemic heart disease and other diseases of the circulatory system; Z80.9 Family history of malignant neoplasm, unspecified
CPT/HCPCS: 36415; 70450; 70551; 71046; 74018; 74177; 80053; 80061; 80306; 81003; 83880; 84484; 85025; 85610; 85730; 93005; 96361; 96374; 96376; 99285

== ENCOUNTER 2020-07-20 21:17 | Inpatient (IN) | payer MEDICARE ==
[2020-07-20] MEDS ORDERED: ASPIRIN 81 MG PO STA (21:37)
[2020-07-20 21:59] LABS: Basophils % (A) 0 %; Eosinophils # (A) 0.1 k/uL (0-0.7); Eosinophils % (A) 1 %; HCT 48.7 % (39.0-53.0); HGB 15.5 gm/dL (13.0-17.5); Lymphocytes # (A) 1.7 k/uL (1.0-4.8); Lymphocytes % (A) 18 %; MCH 29.4 pg (25.0-35.0); MCHC 31.8 g/dL (31.0-37.0); MCV 92.3 fL (80.0-100.0); Mean Platelet Volume 9.4; Monocytes # (A) 0.3 k/uL (0-1.0); Monocytes % (A) 3 %; Neutrophils # (A) 6.9 k/uL (1.3-7.7); Neutrophils % (A) 76 %; Platelet Count 208 k/uL (150-450); RBC 5.28 m/uL (4.30-5.90); RDW 15.6 % (11.5-15.5); WBC 9.1 k/uL (3.8-10.6)
--- NOTE | 2020-07-20 22:03 | XR ---
EXAMINATION TYPE: XR chest 2V DATE OF EXAM: 07/20/2020 COMPARISON: 03/12/2019 HISTORY: Chest pain TECHNIQUE: FINDINGS: There is some mild pulmonary interstitial edema. Heart is enlarged. There are chest leads. There is no definite pleural fluid. IMPRESSION: Pulmonary interstitial edema appears new compared to old exam and could relate to heart f ailure.
[2020-07-20 22:14] LABS: INR 1.1 (<1.2); Partial Thromboplastin Time 28.6 sec (22.0-30.0); Prothrombin Time 10.8 sec (9.0-12.0)
[2020-07-20 22:19] LABS: ALT 12 U/L (4-49); AST 24 U/L (17-59); African American GFR (CKD) >90 (>60 ml/min/1.73 sqM); Albumin 3.9 g/dL (3.5-5.0); Alkaline Phosphatase 110 U/L (38-126); Anion Gap 8 mmol/L; Blood Urea Nitrogen 16 mg/dL (9-20); Carbon Dioxide 25 mmol/L (22-30); Chloride 105 mmol/L (98-107); Glucose 170 mg/dL (74-99); Magnesium 1.9 mg/dL (1.6-2.3); Non-African American GFR(CKD) >90 (>60 ml/min/1.73 sqM); Potassium 3.9 mmol/L (3.5-5.1); Sodium 138 mmol/L (137-145); Total Bilirubin 0.8 mg/dL (0.2-1.3); Total Protein 7.3 g/dL (6.3-8.2)
[2020-07-20] MEDS ORDERED: MORPHINE SULFATE 4 MG/ML SYRINGE IVP STA ×2 (22:29→23:16)
[2020-07-20] MEDS ORDERED: DILTIAZEM 5 MG/ML 5 ML VIAL IVP STA (22:35)
--- NOTE | 2020-07-20 22:51 | ED ---
General Adult HPI - General Chief complaint: Chest Pain Stated complaint: Chest Pain Time Seen by Provider: 07/20/20 21:29 Source: patient Mode of arrival: wheelchair Limitations: no limitations - History of Present Illness Initial comments: 60-year-old male patient presents to the emergency department today for evaluation of left-sided chest pain. Patient states the pain is been present for the last 5 hours. States the pain initially was radiating into the left shoulder and down his arm. States he does have shortness of breath with this. He does have a history of cardiac disease and recently had 2 stents placed for [place]. He denies any nausea or vomiting. Denies dizziness, weakness, or syncope. Denies cough or congestion. Denies any fever or chills. Patient denies any recent rash, abdominal pain, nausea, vomiting, diarrhea, constipation, back pain, numbness, tingling, dizziness, weakness, hematuria, dysuria, urinary urgency, urinary frequency, headache, visual changes, or any other complaints. - Related Data Home Medications Medication Instructions Recorded Confirmed Atorvastatin [Lipitor] 80 mg PO HS 11/10/17 03/12/19 Furosemide [Lasix] 40 mg PO DAILY 11/10/17 03/12/19 hydrALAZINE HCL 50 mg PO Q12H 11/10/17 03/12/19 DULoxetine HCL [Cymbalta] 30 mg PO DAILY 03/12/19 03/12/19 Famotidine [Pepcid] 20 mg PO BID 03/12/19 03/12/19 Gabapentin 600 mg PO BID 03/12/19 03/12/19 OXcarbazepine [Trileptal] 450 mg PO BID 03/12/19 03/12/19 Omeprazole [PriLOSEC] 20 mg PO DAILY 03/12/19 03/12/19 Varenicline [Chantix Continuing 1 mg PO BID 03/12/19 03/12/19 Pack] atenoloL [Tenormin] 50 mg PO DAILY 03/12/19 03/12/19 Aspirin 81 mg PO DAILY PRN 07/20/20 07/20/20 Ibuprofen [Motrin Ib] 200 - 800 mg PO Q8H PRN 07/20/20 07/20/20 Allergies Allergy/AdvReac Type Severity Reaction Status Date / Time No Known Allergies Allergy Verified 12/23/20 22:02 Review of Systems ROS Statement: Those systems with pertinent positive or pertinent negative responses have been documented in the HPI. ROS Other: All systems not noted in ROS Statement are negative. Past Medical History Past Medical History: Chest Pain / Angina, COPD, Deep Vein Thrombosis (DVT), GERD/Reflux, Hyperlipidemia, Hypertension, Myocardial Infarction ([place]), Osteoarthritis (OA) Additional Past Medical History / Comment(s): History of hepatitis A, chronic pain, gout, "kidneys shut down x2 when sick". Back pain, TIA 2009 Last Myocardial Infarction Date:: 1999 History of Any Multi-Drug Resistant Organisms: MRSA Date of last positivie culture/infection: 2015 MDRO Source:: face MRSA Past Surgical History: Bowel Resection, Heart Catheterization With Stent, Hernia Repair, Orthopedic Surgery Additional Past Surgical History / Comment(s): Shoulder surgery, hernia, cataracts, pain clinic procedures, colostomy. Past Anesthesia/Blood Transfusion Reactions: No Reported Reaction Date of Last Stent Placement:: 1999 Past Psychological History: Anxiety, Depression Smoking Status: Former smoker Past Alcohol Use History: Daily Past Drug Use History: None Reported - Past Family History Mother Family Medical History: Cancer, Myocardial Infarction ([place]) Additional Family Medical History / Comment(s): Mother had unknown type of cancer. She of a [place] at the age of 68yrs. Father Family Medical History: Myocardial Infarction ([place]) Additional Family Medical History / Comment(s): Father from his heart "exploding" at the age of 58 yrs. Sister(s) Family Medical History: Cancer Additional Family Medical History / Comment(s): Sisters x2 General Exam Limitations: no limitations General appearance: alert, in no apparent distress, other (This is a well- developed, well-nourished adult male patient in no acute distress. Vital signs upon presentation are temperature 98.1F, pulse 1:30, respirations 22, blood pressure 185/114, pulse ox 98% on room air.) Respiratory exam: Present: normal lung sounds bilaterally. Absent: respiratory distress, wheezes, rales, rhonchi, stridor Cardiovascular Exam: Present: normal rhythm, tachycardia, normal heart sounds. Absent: systolic murmur, diastolic murmur, rubs, gallop, clicks GI/Abdominal exam: Present: soft, normal bowel sounds. Absent: distended, tenderness, guarding, rebound, rigid Neurological exam: Present: alert, oriented X3, CN II-XII intact Psychiatric exam: Present: normal affect, normal mood Skin exam: Present: warm, dry, intact, normal color. Absent: rash Course Vital Signs 07/20/20 07/20/20 07/20/20 21:24 21:37 22:28 Temperature 98.1 F Pulse Rate 130 H 133 H Pulse Rate [ 129 H [employer] ] Respiratory 22 18 Rate Blood Pressure 185/114 151/105 O2 Sat by Pulse 98 98 Oximetry 07/20/20 07/20/20 22:50 22:59 Temperature Pulse Rate 93 94 Pulse Rate [ [employer] ] Respiratory 22 19 Rate Blood Pressure 140/73 140/73 O2 Sat by Pulse 98 98 Oximetry EKG Findings - EKG Comments: EKG Findings:: EKG obtained at 2124 shows atrial flutter with a 2-1 AV conduction, ventricular rate is 130, parent will to 40, QRS duration 112, QT 366, QTC 391. No evidence of ST elevation or depression. EKG #2 was obtained at 2236 show a flutter with a variable AV block, ventricular 87, QRS duration 104, QTC 396, QTc 476. Medical Decision Making - Medical Decision Making 60-year-old male patient with past medical history significant for coronary artery disease hypertension presents to the emergency department today for evaluation of chest pain and shortness of breath. Physical examination did reveal clear lung sounds. He was exhibiting mild shortness of breath but was able to speak full sentences. EKG showed atrial flutter at a rate of 1:30. Blood pressure was initially elevated. Labs reviewed and revealed normal white blood cell count. D-dimer 1.52. Glucose 170. Troponin 0.[address] angiography of the chest was obtained and showed peripheral pulmonary emboli in the left lung base. The patient was given 20 mg of IV Cardizem, this did improve heart rate to the 90s and improved blood pressure as well. Underlying rhythm was definitely atrial flutter. He'll be admitted to the hospital with subcu Lovenox. Cardiology will be consulted. Dr. Hodges is aware. - Lab Data Result diagrams: 07/20/20 21:41 07/20/20 21:41 Lab Results 07/20/20 07/20/20 07/20/20 Range/Units 21:41 21:41 21:41 WBC 9.1 (3.8-10.6) k/uL RBC 5.28 (4.30-5.90) m/uL Hgb 15.5 (13.0-17.5) gm/dL Hct 48.7 (39.0-53.0) % MCV 92.3 (80.0-100.0) fL MCH 29.4 (25.0-35.0) pg MCHC 31.8 (31.0-37.0) g/dL RDW 15.6 H (11.5-15.5) % Plt Count 208 (150-450) k/uL MPV 9.4 Neutrophils % 76 % Lymphocytes % 18 % Monocytes % 3 % Eosinophils % 1 % Basophils % 0 % Neutrophils # 6.9 (1.3-7.7) k/uL Lymphocytes # 1.7 (1.0-4.8) k/uL Monocytes # 0.3 (0-1.0) k/uL Eosinophils # 0.1 (0-0.7) k/uL Basophils # 0.0 (0-0.2) k/uL PT 10.8 (9.0-12.0) sec INR 1.1 (<1.2) APTT 28.6 (22.0-30.0) sec D-Dimer 1.52 H (<0.60) mg/L FEU Sodium 138 (137-145) mmol/L Potassium 3.9 (3.5-5.1) mmol/L Chloride 105 (98-107) mmol/L Carbon Dioxide 25 (22-30) mmol/L Anion Gap 8 mmol/L BUN 16 (9-20) mg/dL Creatinine 0.72 (0.66-1.25) mg/dL Est GFR (CKD-EPI)AfAm >90 (>60 ml/min/1.73 sqM) Est GFR (CKD-EPI)NonAf >90 (>60 ml/min/1.73 sqM) Glucose 170 H (74-99) mg/dL Calcium 9.0 (8.4-10.2) mg/dL Magnesium 1.9 (1.6-2.3) mg/dL Total Bilirubin 0.8 (0.2-1.3) mg/dL AST 24 (17-59) U/L ALT 12 (4-49) U/L Alkaline Phosphatase 110 (38-126) U/L Troponin I (0.000-0.034) ng/mL NT-Pro-B Natriuret Pep pg/mL Total Protein 7.3 (6.3-8.2) g/dL Albumin 3.9 (3.5-5.0) g/dL 07/20/20 07/20/20 Range/Units 21:41 21:41 WBC (3.8-10.6) k/uL RBC (4.30-5.90) m/uL Hgb (13.0-17.5) gm/dL Hct (39.0-53.0) % MCV (80.0-100.0) fL MCH (25.0-35.0) pg MCHC (31.0-37.0) g/dL RDW (11.5-15.5) % Plt Count (150-450) k/uL MPV Neutrophils % % Lymphocytes % % Monocytes % % Eosinophils % % Basophils % % Neutrophils # (1.3-7.7) k/uL Lymphocytes # (1.0-4.8) k/uL Monocytes # (0-1.0) k/uL Eosinophils # (0-0.7) k/uL Basophils # (0-0.2) k/uL PT (9.0-12.0) sec INR (<1.2) APTT (22.0-30.0) sec D-Dimer (<0.60) mg/L FEU Sodium (137-145) mmol/L Potassium (3.5-5.1) mmol/L Chloride (98-107) mmol/L Carbon Dioxide (22-30) mmol/L Anion Gap mmol/L BUN (9-20) mg/dL Creatinine (0.66-1.25) mg/dL Est GFR (CKD-EPI)AfAm (>60 ml/min/1.73 sqM) Est GFR (CKD-EPI)NonAf (>60 ml/min/1.73 sqM) Glucose (74-99) mg/dL Calcium (8.4-10.2) mg/dL Magnesium (1.6-2.3) mg/dL Total Bilirubin (0.2-1.3) mg/dL AST (17-59) U/L ALT (4-49) U/L Alkaline Phosphatase (38-126) U/L Troponin I 0.017 (0.000-0.034) ng/mL NT-Pro-B Natriuret Pep 3590 pg/mL Total Protein (6.3-8.2) g/dL Albumin (3.5-5.0) g/dL - Radiology Data Radiology results: report reviewed, image reviewed Two-view x-ray of the chest is obtained. Report was reviewed in its entirety. Impression by Dr. Ruiz shows pulmonary interstitial edema appears new compared to old exam and could relate to heart failure. CT chest with contrast was obtained. Report was reviewed in its entirety. Impression by Dr. Ralph shows minimal peripheral pulmonary emboli at the left lung base. Cardiomegaly. No central pulmonary emboli. Disposition Clinical Impression: Chest pain, Atrial flutter, Pulmonary embolism Disposition: ADMITTED IP TO THIS [facility] Condition: Serious Decision to Admit Reason: Admit from EC Decision Date: 07/20/20 Decision Time: 23:38
[2020-07-20 22:55] LABS: D-Dimer 1.52 mg/L FEU (<0.60)
[2020-07-20] MEDS ORDERED: ONDANSETRON 4 MG/2 ML VIAL IVP PRN (23:36)
[2020-07-20] MEDS ORDERED: NALOXONE 0.4 MG/ML 1 ML VIAL IV PRN (23:36)
[2020-07-20] MEDS ORDERED: MORPHINE SULFATE 4 MG/ML SYRINGE IV PRN (23:36)
[2020-07-20] MEDS ORDERED: HYDROmorphone 1 MG/ML 1 ML SYRINGE IVP STA (23:53)
[2020-07-21] MEDS ORDERED: ENOXAPARIN 100 MG/ML SYRINGE SQ ONE
--- NOTE | 2020-07-21 | CT ---
EXAM: CT Angiography Chest With Intravenous Contrast CLINICAL HISTORY: Chest pain. TECHNIQUE: Axial computed tomographic angiography images of the chest with intravenous contrast. CTDI is 22.57 mGy and DLP is 426.5 mGy-cm. This CT exam was performed using one or more of the following dose reduction techniques: automated exposure control, adjustment of the mA and/or kV according to patient size, and/or use of iterative reconstruction technique. MIP reconstructed images were created and reviewed. COMPARISON: 11/23/2017. FINDINGS: Pulmonary arteries: No central pulmonary emboli detected. Best seen on axial image 80, there is peripheral pulmonary embolism at the left lung base. Aorta: Atherosclerotic disease of the thoracic aorta. No thoracic aortic aneurysm. Lungs: Mild to moderate COPD. Minimal subsegmental atelectasis at the lung bases. The airways patent. No mass. Pleural space: Unremarkable. No significant effusion. No pneumothorax. Heart: Unremarkable. No cardiomegaly. No significant pericardial effusion. No evidence of RV dysfunction. Thyroid: Thyroid gland is unremarkable. Bones/joints: No acute fracture. No dislocation. Soft tissues: Unremarkable. Lymph nodes: Unremarkable. No enlarged lymph nodes. Liver: Fatty liver. Kidneys and ureters: Nonspecific stranding about the perinephric spaces. IMPRESSION: 1. Minimal peripheral pulmonary emboli at the left lung base best seen on axial image 79. 2. Cardiomegaly. 3. No central pulmonary emboli. <MYCVCSECTION> Communications: 07/21/20 00:01 Call Doctor Regarding Pulmonary Embolism, called David PRIDE on 07/21 00:01 (-05:00)
[2020-07-21] MEDS: DILTIAZEM 125 MG in SODIUM CHLORIDE 0.9% 100 ML IV SCH ×2 (01:58→02:01)
--- NOTE | 2020-07-21 02:58 | P.HPIM ---
History of Present Illness H&P Date: 07/21/20 Patient is a 60-year-old male with a PMH of polysubstance abuse, coronary artery disease, hypertension, and hyperlipidemia who presented to the emergency room with complaints of chest discomfort, palpitations, and shortness of breath. The patient notes that his symptoms started at around 11 AM this morning. He notes that over the past few weeks however he has been developing intermittent palpita tions and exertional dyspnea but that he also then developed chest discomfort earlier today. He reports the pain as a 7 out of 10 on the left side of his chest, pleuritic, nonradiating, with no alleviating or exacerbating features. Reports last use of methamphetamine yesterday. Denied any additional drug use. Denied nausea, vomiting, diaphoresis, dizziness, or syncope. Denied recent travel, leg pain, or leg swelling. The patient also reported chronic nonproductive cough, unchanged from prior. Denied fever, chills. In the emergency room, the patient underwent an extensive evaluation with EKG showing a flutter with 2-1 conduction. A chest CTA revealed a peripheral PE at the left lung base along with cardiomegaly. Laboratory evaluation was remarkable for a d-dimer of 1.52, troponin of 0.017, glucose of 170, and a proBNP of 3590. Review of Systems Pertinent positives and negatives as discussed in HPI, a complete review of systems was performed and all other systems are negative. Past Medical History Past Medical History: Chest Pain / Angina, COPD, Deep Vein Thrombosis (DVT), GERD/Reflux, Hyperlipidemia, Hypertension, Myocardial Infarction ([place]), Osteoarthritis (OA) Additional Past Medical History / Comment(s): History of hepatitis A, chronic pain, gout, "kidneys shut down x2 when sick". Back pain, TIA 2009 Last Myocardial Infarction Date:: 1999 History of Any Multi-Drug Resistant Organisms: MRSA Date of last positivie culture/infection: 2015 MDRO Source:: face MRSA Past Surgical History: Bowel Resection, Heart Catheterization With Stent, Hernia Repair, Orthopedic Surgery Additional Past Surgical History / Comment(s): Shoulder surgery, hernia, cataracts, pain clinic procedures, colostomy. Past Anesthesia/Blood Transfusion Reactions: No Reported Reaction Date of Last Stent Placement:: 1999 Past Psychological History: Anxiety, Depression Smoking Status: Former smoker Past Alcohol Use History: Daily Past Drug Use History: None Reported - Past Family History Mother Family Medical History: Cancer, Myocardial Infarction ([place]) Additional Family Medical History / Comment(s): Mother had unknown type of cancer. She of a [place] at the age of 68yrs. Father Family Medical History: Myocardial Infarction ([place]) Additional Family Medical History / Comment(s): Father from his heart "exploding" at the age of 58 yrs. Sister(s) Family Medical History: Cancer Additional Family Medical History / Comment(s): Sisters x2 Medications and Allergies Home Medications Medication Instructions Recorded Confirmed Type Atorvastatin [Lipitor] 80 mg PO HS 11/10/17 03/12/19 History Furosemide [Lasix] 40 mg PO DAILY 11/10/17 03/12/19 History hydrALAZINE HCL 50 mg PO Q12H 11/10/17 03/12/19 History DULoxetine HCL [Cymbalta] 30 mg PO DAILY 03/12/19 03/12/19 History Famotidine [Pepcid] 20 mg PO BID 03/12/19 03/12/19 History Gabapentin 600 mg PO BID 03/12/19 03/12/19 History OXcarbazepine [Trileptal] 450 mg PO BID 03/12/19 03/12/19 History Omeprazole [PriLOSEC] 20 mg PO DAILY 03/12/19 03/12/19 History Varenicline [Chantix Continuing 1 mg PO BID 03/12/19 03/12/19 History Pack] atenoloL [Tenormin] 50 mg PO DAILY 03/12/19 03/12/19 History Aspirin 81 mg PO DAILY PRN 07/20/20 07/20/20 History Ibuprofen [Motrin Ib] 200 - 800 mg PO Q8H PRN 07/20/20 07/20/20 History Allergies Allergy/AdvReac Type Severity Reaction Status Date / Time No Known Allergies Allergy Verified 07/20/20 22:02 Physical Exam Vitals: Vital Signs Temp Pulse Pulse Resp BP Pulse Ox 07/21/20 01:21 126 H 07/20/20 22:59 94 19 140/73 98 07/20/20 22:50 93 22 140/73 98 07/20/20 22:28 133 H 18 151/105 98 07/20/20 21:37 129 H 07/20/20 21:24 98.1 F 130 H 22 185/114 98 Intake and Output 07/20/20 07/20/20 07/21/20 14:59 22:59 06:59 Other: Weight 95.254 kg General: non toxic, no distress, appears older than stated age, obese Derm: Bilateral upper extremity excoriations and shallow ulcers, warm, dry Head: atraumatic, normocephalic, symmetric Eyes: EOMI, no lid lag, anicteric sclera, pupils equal round reactive to light ENT: Nose and ears atraumatic, no thrush, no pharyngeal erythema Neck: No thyromegaly, no cervical lymphadenopathy, trachea midline, supple Mouth: no lip lesion, mucus membranes dry Cardiovascular: S1S2 reg, tachycardic, no murmur, positive posterior tibial pulse bilateral, no edema, capillary refill less than 2 seconds Lungs: CTA bilateral, no rhonchi, no rales , no accessory muscle use Abdominal: soft, nontender to palpation, no guarding, no appreciable organomegaly, normal bowel sounds Ext: no gross muscle atrophy, muscle strength 5 out of 5 in all 4 extremities grossly, no contractures, Neuro: CN II-XI grossly intact, light touch intact all 4 extremities, finger to nose within normal limits, Psych: Alert, oriented, appropriate affect Results CBC & Chem 7: 07/20/20 21:41 07/20/20 21:41 Labs: Abnormal Lab Results - Last 24 Hours (Table) 07/20/20 07/20/20 07/20/20 Range/Units 21:41 21:41 21:41 RDW 15.6 H (11.5-15.5) % D-Dimer 1.52 H (<0.60) mg/L FEU Glucose 170 H (74-99) mg/dL Assessment and Plan Plan: A flutter, possibly secondary to substance abuse -Cardiology consult -Cardiac monitoring -Continue with Cardizem infusion -Echocardiogram -Trend troponin -Continue with Lovenox for now with plans to switch to NOAC following echocardiogram Acute PE -Continue with Lovenox as above Polysubstance abuse -Strongly advised on the importance of cessation Hyperglycemia -Check A1c -insulin sliding scale with blood glucose monitoring- Chronic conditions: Hypertension, hyperlipidemia -Continue with home meds DVT prophylaxis -Lovenox The patient is admitted with an anticipated less than 2 midnight stay for evaluation of aflutter CODE STATUS: Full Code Discussed with: Patient Anticipated discharge date: in am Anticipated discharge place: home A total of 40 minutes was spent on the care of this complex patient more than 50% of the time was spent in counseling and care coordination.
[2020-07-21 04:34] LABS: Cocaine Screen,Urine Not Detected (NotDetected); Phencyclidine Screen,Urine Not Detected (NotDetected)
[2020-07-21 04:38] LABS: Amphetamine Screen,Urine Detected (NotDetected); Barbiturate Screen,Urine Not Detected (NotDetected); Benzodiazepines Screen,Urine Not Detected (NotDetected); Methadone Screen, Urine Not Detected (NotDetected); Opiate Screen,Urine Detected (NotDetected); Oxycodone Screen, Urine Not Detected (NotDetected); Tricyclic Antidepressant,Urine Not Detected (NotDetected); Urn Cannabinoid Scrn Not Detected (NotDetected)
[2020-07-21] MEDS ORDERED: MORPHINE SULFATE 2 MG/ML SYRINGE IV PRN (07:40)
[2020-07-21] MEDS: INSULIN ASPART (NovoLOG) 100 UNIT/ML VIAL SQ SCH ×4 (07:57→20:43)
[2020-07-21] MEDS ORDERED: METOPROLOL SUCCINATE (ER) 25 MG TAB.ER.24H PO SCH (10:13)
[2020-07-21] MEDS ORDERED: lisinopriL 5 MG TAB PO SCH (10:14)
[2020-07-21] MEDS ORDERED: FUROSEMIDE 40 MG TAB PO SCH (10:15)
[2020-07-21] MEDS ORDERED: NITROGLYCERIN SL TABS 0.4 MG TAB SUBLINGUAL STA (10:34)
[2020-07-21] MEDS ORDERED: HYDROmorphone 0.5 MG/0.5 ML SYRINGE IVP STA (10:35)
[2020-07-21] MEDS ORDERED: ASPIRIN 81 MG PO PRN (10:38)
--- NOTE | 2020-07-21 10:57 | P.PN ---
Subjective Progress Note Date: 07/21/20 Patient continues to have a lot of chest pain today when I saw her. He said his pain is 8 out of 10 in severity. He was seen by cardiology right prior to my evaluation. His serial troponin were negative. Objective - Vital Signs Vital signs: Vital Signs Temp 97.4 F L 07/21/20 08:00 Pulse 64 07/21/20 08:00 Resp 20 07/21/20 08:00 BP 150/79 07/21/20 08:00 Pulse Ox 98 07/21/20 08:00 Intake & Output 07/20/20 07/21/20 07/21/20 18:59 06:59 18:59 Weight 95.254 kg - Exam General: The patient is awake and alert, in no distress Eye: there is normal conjunctiva bilaterally. Neck: The neck is supple, there is no JVD. Cardiovascular: Normal S1-S2, no S3-S4, no murmurs. Respiratory: Lungs clear to auscultation bilaterally Gastrointestinal: Abdomen is soft, nontender Musculoskeletal: There is no pedal edema. Neurological:. Speech is normal. Skin: Skin is warm and dry - Labs CBC & Chem 7: 07/20/20 21:41 07/20/20 21:41 Labs: Abnormal Lab Results - Last 24 Hours (Table) 07/20/20 07/20/20 07/20/20 Range/Units 21:41 21:41 21:41 RDW 15.6 H (11.5-15.5) % D-Dimer 1.52 H (<0.60) mg/L FEU Glucose 170 H (74-99) mg/dL Urine Opiates Screen (NotDetected) Ur Amphetamines Screen (NotDetected) U Methamphetamines Scrn (NotDetected) 07/21/20 Range/Units 03:48 RDW (11.5-15.5) % D-Dimer (<0.60) mg/L FEU Glucose (74-99) mg/dL Urine Opiates Screen Detected H (NotDetected) Ur Amphetamines Screen Detected H (NotDetected) U Methamphetamines Scrn Detected H (NotDetected) Assessment and Plan Assessment: Patient is a 60-year-old male with a PMH of polysubstance abuse, coronary artery disease, hypertension, and hyperlipidemia who presented to the emergency room with complaints of chest discomfort, palpitations, and shortness of breath. In the emergency room, the patient underwent an extensive evaluation with EKG showing a flutter with 2-1 conduction. A chest CTA revealed a peripheral PE at the left lung base along with cardiomegaly. He was admitted to the hospital for further management of his medical problems noted below A flutter, possibly secondary to methamphetamine abuse Atypical chest pain History of coronary artery disease with prior stent placement -ACS ruled out. Troponin negative 3 sets. -Cardiology consult, appreciate recommendation -Started on IV Cardizem drip. I would resume home dose of metoprolol 75 mg 3 times a day. Resume home dose of digoxin.. Discontinue Cardizem drip. -Echocardiogram ordered and pending Acute PE -Questionable PE on CT angiogram -Patient reported history of DVT in the right lower extremity 20 years ago -On anticoagulation with Eliquis at home with questionable compliance -Lower extremity ultrasound to rule out DVT Polysubstance abuse -Strongly advised on the importance of cessation Hyperglycemia -Check A1c -insulin sliding scale with blood glucose monitoring- Chronic conditions: Hypertension, hyperlipidemia -Continue with home meds
[2020-07-21] MEDS ORDERED: ENOXAPARIN 100 MG/ML SYRINGE SQ SCH (11:00)
--- NOTE | 2020-07-21 11:22 | P.CRDCN ---
History of Present Illness Consult date: 07/21/20 History of present illness: CHIEF COMPLAINT: A flutter HISTORY OF PRESENT ILLNESS: This is a 60-year-old male with a past medical history significant for DVT, hyperlipidemia, hypertension, osteoarthritis, coronary artery disease and drug abuse. Patient follows in the office with Dr. Queen. We have been asked to see the patient in consultation for a flutter. Patient examined at the bedside in the emergency room. Patient was hospitalized at [facility] in April 2020. He underwent cardiac cath at that time revealing moderate disease of the mid LAD and mild disease of the RCA. Medical management was recommended. The patient's stress test was recommended and if ischemia was noted would consider revascularization of the LAD. However patient has not had a stress test completed since that time according to office records. Patient was found to be in aflutter upon arrival. There is no documented history of aflutter but patient does report having a history of atrial flutter. According to his home med list, he is prescribed Eliquis. He reports noncompliance with some of his medications because he does not have any insurance. He reports chest pain at the time of my examination. He states the pain is worse with deep inspiration and minimal movement. He reports using methamphetamines 2 days ago. Patient states he used to smoke cigarettes but states he quit. He does admit to smoking a cigar every now and then. Patient reports rarely using alcohol, however according to EMR there is documentation of daily alcohol use of 30 beers daily DIAGNOSTICS: EKG reveals atrial flutter with 2:1 conduction Chest xray pulmonary interstitial edema appears new compared to old exam inclu ding related to heart failure Laboratory data: WBC 9.1. Hemoglobin 15.5. Platelet Count 208. D-dimer 1.52. Sodium 138. Potassium 3.9. BUN 16. Creatinine 0.72. Troponin negative 3. BNP 3590. Toxicology screen positive for opioids, amphetamines, and methamphetamines. Current home cardiac medications include Imdur 30 mg daily, Lasix 60 mg in the a.m. and 40 mg in the afternoon, digoxin 125mcg daily, metoprolol 75 mg 3 times a day, Lipitor 40 mg daily, Eliquis 5 mg twice a day, and aspirin 81 mg daily PRN REVIEW OF SYSTEMS: At the time of my exam: CONSTITUTIONAL: Denies fever or chills. HEENT: Denies blurred vision, vision changes, or eye pain. Denies hemoptysis CARDIOVASCULAR: Reports chest pain with deep inspiration, palpation, or movement. Denies palpitations RESPIRATORY: Reports shortness of breath. GASTROINTESTINAL: Denies abdominal pain. Denies nausea or vomiting. HEMATOLOGIC: Denies bleeding disorders. GENITOURINARY: Denies any blood in urine. SKIN: Denies pruitis. Denies rash. PHYSICAL EXAM: VITAL SIGNS: Reviewed. GENERAL: Well-developed in no acute distress. HEENT: Head is normocephalic. Pupils are equal, round. Sclerae anicteric. Mucous membranes of the mouth are moist. Neck supple. No JVD or thyromegaly LUNGS: Respirations even and unlabored. Lungs essentially clear to auscultation bilaterally. HEART: Irregular rate and rhythm. S1 and S2 heard. ABDOMEN: Soft. Nondistended. Nontender. EXTREMITIES: Normal range of motion. No clubbing or cyanosis. Peripheral pulses intact. No lower extremity edema NEUROLOGIC: Awake and alert. Oriented x 3. ASSESSMENT: 1.Typical aflutter with RVR 2. Acute PE at left lung base 3. Coronary artery disease, s/p cardiac cath revealing moderate disease of the mid LAD and mild disease of the RCA, no stents placed at that time, medical management was recommended 4. Chronic diastolic congestive heart failure, EF 50-55% in 2018 5. Hypertension 6. Hyperlipidemia 7. History of DVT 8. Former nicotine dependence 9. Drug abuse, patient + for amphetamines and methamphetamines 10. Medication noncompliance PLAN: Obtain 2D echo to assess cardiac structure and function Discontinue IV cardizem Resume home medications Patient has no insurance. He has not been taking Eliquis. Will consult case management for assistance with insurance and medications. Obtain records from [facility] Further recommendations pending patient course Nurse practitioner note has been reviewed by physician. Signing provider agrees with the documented findings, assessment, and plan of care. Past Medical History Past Medical History: Chest Pain / Angina, COPD, Deep Vein Thrombosis (DVT), GERD/Reflux, Hyperlipidemia, Hypertension, Myocardial Infarction (MD), Osteoarthritis (OA) Additional Past Medical History / Comment(s): History of hepatitis A, chronic pain, gout, "kidneys shut down x2 when sick". Back pain, TIA 2009 Last Myocardial Infarction Date:: 1999 History of Any Multi-Drug Resistant Organisms: MRSA Date of last positivie culture/infection: 2016 MDRO Source:: face MRSA Past Surgical History: Bowel Resection, Heart Catheterization With Stent, Hernia Repair, Orthopedic Surgery Additional Past Surgical History / Comment(s): Shoulder surgery, hernia, cataracts, pain clinic procedures, colostomy. Past Anesthesia/Blood Transfusion Reactions: No Reported Reaction Date of Last Stent Placement:: 1999 Past Psychological History: Anxiety, Depression Smoking Status: Former smoker Past Alcohol Use History: Daily Past Drug Use History: None Reported - Past Family History Mother Family Medical History: Cancer, Myocardial Infarction (MD) Additional Family Medical History / Comment(s): Mother had unknown type of cancer. She of a MD at the age of 68yrs. Father Family Medical History: Myocardial Infarction (MD) Additional Family Medical History / Comment(s): Father from his heart "exploding" at the age of 58 yrs. Sister(s) Family Medical History: Cancer Additional Family Medical History / Comment(s): Sisters x2 Medications and Allergies Home Medications Medication Instructions Recorded Confirmed Type Furosemide [Lasix] 40 mg PO W/SUPPER 11/10/17 07/21/20 History Aspirin 81 mg PO DAILY PRN 07/20/20 07/20/20 History Ibuprofen [Motrin Ib] 200 - 800 mg PO Q8H PRN 07/20/20 07/20/20 History Apixaban [Eliquis] 5 mg PO BID 07/21/20 07/21/20 History Atorvastatin [Lipitor] 40 mg PO HS 07/21/20 07/21/20 History Digoxin [Lanoxin] 125 mcg PO DAILY 07/21/20 07/21/20 History Furosemide [Lasix] 60 mg PO DAILY 07/21/20 07/21/20 History Isosorbide Mononitrate ER [Imdur] 30 mg PO DAILY 07/21/20 07/21/20 History Metoprolol Tartrate 75 mg PO TID 07/21/20 07/21/20 History Montelukast Sodium [Singulair] 10 mg PO HS 07/21/20 07/21/20 History Allergies Allergy/AdvReac Type Severity Reaction Status Date / Time No Known Allergies Allergy Verified 07/20/20 22:02 Physical Exam Vitals: Vital Signs Temp Pulse Pulse Resp BP Pulse Ox 07/21/20 08:00 97.4 F L 64 20 150/79 98 07/21/20 06:25 65 18 128/65 98 07/21/20 05:10 66 18 127/71 98 07/21/20 03:00 75 18 128/84 98 07/21/20 02:00 123 H 132/96 98 07/21/20 01:21 126 H 119/98 07/20/20 22:59 94 19 140/73 98 07/20/20 22:50 93 22 140/73 98 07/20/20 22:28 133 H 18 151/105 98 07/20/20 21:37 129 H 07/20/20 21:24 98.1 F 130 H 22 185/114 98 Intake and Output 07/20/20 07/21/20 07/21/20 22:59 06:59 14:59 Other: Weight 95.254 kg Results 07/20/20 21:41 07/20/20 21:41 Cardiac Enzymes 07/20/20 07/20/20 07/21/20 Range/Units 21:41 21:41 01:00 AST 24 (17-59) U/L Troponin I 0.017 0.022 (0.000-0.034) ng/mL 07/21/20 Range/Units 03:23 AST (17-59) U/L Troponin I 0.020 (0.000-0.034) ng/mL Coagulation 07/20/20 Range/Units 21:41 PT 10.8 (9.0-12.0) sec APTT 28.6 (22.0-30.0) sec CBC 07/20/20 Range/Units 21:41 WBC 9.1 (3.8-10.6) k/uL RBC 5.28 (4.30-5.90) m/uL Hgb 15.5 (13.0-17.5) gm/dL Hct 48.7 (39.0-53.0) % Plt Count 208 (150-450) k/uL Comprehensive Metabolic Panel 07/20/20 Range/Units 21:41 Sodium 138 (137-145) mmol/L Potassium 3.9 (3.5-5.1) mmol/L Chloride 105 (98-107) mmol/L Carbon Dioxide 25 (22-30) mmol/L BUN 16 (9-20) mg/dL Creatinine 0.72 (0.66-1.25) mg/dL Glucose 170 H (74-99) mg/dL Calcium 9.0 (8.4-10.2) mg/dL AST 24 (17-59) U/L ALT 12 (4-49) U/L Alkaline Phosphatase 110 (38-126) U/L Total Protein 7.3 (6.3-8.2) g/dL Albumin 3.9 (3.5-5.0) g/dL Current Medications Generic Name Dose Route Start Last Admin Trade Name Freq PRN Reason Stop Dose Admin Apixaban 10 mg 07/21/20 21:00 Apixaban 5 Mg Tab PO BID [facility] Aspirin 81 mg 07/21/20 10:38 Aspirin 81 Mg PO DAILY PRN Chest Pain Atorvastatin Calcium 40 mg 07/21/20 21:00 Atorvastatin 40 Mg Tab PO HS [facility] Digoxin 125 mcg 07/22/20 09:00 Digoxin 125 Mcg Tab PO DAILY [facility] Furosemide 60 mg 07/22/20 09:00 Furosemide 20 Mg Tab PO DAILY [facility] Furosemide 40 mg 07/21/20 17:30 Furosemide 40 Mg Tab PO W/SUPPER [facility] Insulin Aspart 0 unit 07/21/20 07:30 07/21/20 07:57 Insulin Aspart (Novolog) 100 Unit/Ml Vial SQ Not Given ACHS [facility] Protocol Isosorbide Mononitrate 30 mg 07/22/20 09:00 Isosorbide Mononitrate Er 30 Mg Tab.Er.24h PO DAILY [facility] Metoprolol Tartrate 75 mg 07/21/20 21:00 Metoprolol Tartrate 25 Mg Tab PO BID [facility] Montelukast Sodium 10 mg 07/21/20 21:00 Montelukast 10 Mg Tab PO HS [facility] Morphine Sulfate 2 mg 07/21/20 07:40 07/21/20 09:47 Morphine Sulfate 2 Mg/Ml Syringe IV 2 mg Q4H PRN Administration Severe Pain Naloxone HCl 0.2 mg 07/20/20 23:36 Naloxone 0.4 Mg/Ml 1 Ml Vial IV Q2M PRN Opioid Reversal Ondansetron HCl 4 mg 07/20/20 23:36 Ondansetron 4 Mg/2 Ml Vial IVP Q8HR PRN Nausea And Vomiting Intake and Output 07/20/20 07/21/20 07/21/20 22:59 06:59 14:59 Other: Weight 95.254 kg 07/20/20 21:41 07/20/20 21:41
[2020-07-21] MEDS: HYDROmorphone 0.5 MG/0.5 ML SYRINGE IVP PRN ×2 (14:29→20:42)
[2020-07-21] MEDS ORDERED: NITROGLYCERIN SL TABS 0.4 MG TAB SUBLINGUAL PRN (14:39)
[2020-07-21] MEDS ORDERED: METOPROLOL TARTRATE 25 MG TAB PO SCH (16:00)
[2020-07-21] MEDS: FUROSEMIDE 40 MG TAB PO SCH (17:09)
[2020-07-21] MEDS ORDERED: RIVAROXABAN 15 MG TAB PO SCH (17:30)
--- NOTE | 2020-07-21 17:42 | ECHOF ---
Referral Reason: MEASUREMENTS -------- HEIGHT: 170.2 cm WEIGHT: 95.3 kg BP: RVIDd: 2.8 cm (< 3.3) IVSd: 1.6 cm (0.6 - 1.1) LVIDd: 5.6 cm (3.9 - 5.3) LVPWd: 1.8 cm (0.6 - 1.1) IVSs: 2.1 cm LVIDs: 4.6 cm LVPWs: 1.8 cm LAESV Index (A-L): 37.39 ml/m IVSd: 1.2 cm (0.6 - 1.1) LVIDd: 5.7 cm (3.9 - 5.3) LVPWd: 1.1 cm (0.6 - 1.1) IVSs: 1.7 cm LVIDs: 4.5 cm LVPWs: 2.0 cm EDV(Teich): 157 ml ESV(Teich): 91 ml EF(Teich): 42 % %FS: 21 % SV(Teich): 66 ml Ao Diam: 2.6 cm (2.0 - 3.7) AV Cusp: 2.2 cm (1.5 - 2.6) LA Diam: 3.9 cm (2.7 - 3.8) MV EXCURSION: 20.824 mm (> 18.000) MV EF SLOPE: 106 mm/s (70 - 150) EPSS: 0.8 cm MV E [place]: 1.34 m/s MV DecT: 204 ms MV A [place]: 0.41 m/s MV E/A Ratio: 3.25 RAP: 5.00 mmHg RVSP: 9.94 mmHg FINDINGS -------- This was a technically difficult study with suboptimal views. The left ventricular size is normal. There is moderate concentric left ventricular hypertrophy. O verall left ventricular systolic function is moderately impaired with, an EF between 35 - 40 %. Inc reased LAP Grade 2 Diastolic Dysfunction. The right ventricle is normal in size. LA is moderately dilated 34-39 ml/m2 The right atrial size is normal. Lumason used Interatrial and interventricular septum intact. The aortic valve is trileaflet and appears structurally normal. The mitral valve is normal. The mitral valve leaflets are mildly thickened. There is trace mitral regurgitation. The tricuspid valve appears structurally normal. Trace tricuspid regurgitation present. Right ashu tricular systolic pressure is normal at < 35 mmHg. There is no pulmonic regurgitation present. The aortic root size is normal. IVC Not well visulized. There is no pericardial effusion. CONCLUSIONS -------- 1. The left ventricular size is normal. 2. There is moderate concentric left ventricular hypertrophy. 3. Overall left ventricular systolic function is moderately impaired with, an EF between 35 - 40 %. 4. Increased LAP Grade 2 Diastolic Dysfunction. 5. LA is moderately dilated 34-39 ml/m2 6. The mitral valve leaflets are mildly thickened. 7. There is trace mitral regurgitation. 8. Trace tricuspid regurgitation present. 9. There is no pericardial effusion. DRY DIP WORKER: Brittany Mooney RDCS
[2020-07-21] MEDS: ATORVASTATIN 40 MG TAB PO SCH (20:41)
[2020-07-21] MEDS: MONTELUKAST 10 MG TAB PO SCH (20:41)
[2020-07-21] MEDS: METOPROLOL TARTRATE 25 MG TAB PO SCH (20:42)
[2020-07-21] MEDS: APIXABAN 5 MG TAB PO SCH (20:42)
[2020-07-21] MEDS ORDERED: APIXABAN 5 MG TAB PO SCH (21:00)
[2020-07-22] MEDS: HYDROmorphone 0.5 MG/0.5 ML SYRINGE IVP PRN ×3 (02:59→19:40)
[2020-07-22] MEDS: INSULIN ASPART (NovoLOG) 100 UNIT/ML VIAL SQ SCH (06:35)
[2020-07-22] MEDS: METOPROLOL TARTRATE 25 MG TAB PO SCH ×2 (08:39→19:39)
[2020-07-22] MEDS: APIXABAN 5 MG TAB PO SCH ×2 (08:40→19:39)
[2020-07-22] MEDS: ISOSORBIDE MONONITRATE ER 30 MG TAB.ER.24H PO SCH (08:40)
[2020-07-22] MEDS: DIGOXIN 125 MCG TAB PO SCH (08:40)
[2020-07-22] MEDS: FUROSEMIDE 20 MG TAB PO SCH (08:40)
--- NOTE | 2020-07-22 10:42 | P.PN ---
Subjective Progress Note Date: 07/22/20 Patient is sitting up in the chair. He still having episodes of intermittent chest pain. Heart rate well controlled on the monitor. Objective - Vital Signs Vital signs: Vital Signs Temp 97.6 F 07/22/20 08:35 Pulse 86 07/22/20 08:35 Resp 18 07/22/20 08:35 BP 171/81 07/22/20 08:35 Pulse Ox 98 07/22/20 08:35 Intake & Output 07/21/20 07/22/20 07/22/20 18:59 06:59 18:59 Intake Total 260 400 120 Output Total 0 Balance 260 400 120 Weight 95.254 kg 96.2 kg Intake: IV 20 0.9 20 Oral 240 400 120 Output: Urine 0 Other: Voiding Method Urinal Urinal Urinal # Voids 0 - Exam General: The patient is awake and alert, in no distress Eye: there is normal conjunctiva bilaterally. Neck: The neck is supple, there is no JVD. Cardiovascular: Normal S1-S2, no S3-S4, no murmurs. Respiratory: Lungs clear to auscultation bilaterally Gastrointestinal: Abdomen is soft, nontender Musculoskeletal: There is no pedal edema. Neurological:. Speech is normal. Skin: Skin is warm and dry - Labs CBC & Chem 7: 07/20/20 21:41 07/20/20 21:41 Assessment and Plan Assessment: Patient is a 60-year-old male with a PMH of polysubstance abuse, coronary artery disease, hypertension, and hyperlipidemia who presented to the emergency room with complaints of chest discomfort, palpitations, and shortness of breath. In the emergency room, the patient underwent an extensive evaluation with EKG showing a flutter with 2-1 conduction. A chest CTA revealed a peripheral PE at the left lung base along with cardiomegaly. He was admitted to the hospital for further management of his medical problems noted below A flutter, possibly secondary to methamphetamine abuse Atypical chest pain History of coronary artery disease with prior stent placement -ACS ruled out. Troponin negative 3 sets. -Cardiology consult, appreciate recommendation -Started on IV Cardizem drip for a short time on presentation. Now on home dose of metoprolol 75 mg 3 times a day and digoxin. -Echocardiogram showed ejection fraction of 35-40% worsening compared to 2018 when it was 50-55% Acute PE -Questionable PE on CT angiogram -Patient reported history of DVT in the right lower extremity 20 years ago -On anticoagulation with Eliquis at home with questionable compliance -Lower extremity ultrasound to rule out DVT pending reports -Started on Eliquis therapeutic treatment 10 mg twice daily for 7 days currently day #2 -Patient does not have insurance and does not have his medication at home as he can't afford it. plant maintenance worker consulted to help with that matter Polysubstance abuse -Strongly advised on the importance of cessation Chronic conditions: Hypertension, hyperlipidemia -Continue with home meds
--- NOTE | 2020-07-22 11:42 | P.PN ---
Subjective Progress Note Date: 07/22/20 CHIEF COMPLAINT: A flutter HISTORY OF PRESENT ILLNESS: 07/21/2020 This is a 60-year-old male with a past medical history significant for DVT, hyperlipidemia, hypertension, osteoarthritis, coronary artery disease and drug abuse. Patient follows in the office with Dr. Queen. We have been asked to see the patient in consultation for a flutter. Patient examined at the bedside in the emergency room. Patient was hospitalized at [facility] in April 2020. He underwent cardiac cath at that time revealing moderate disease of the mid LAD and mild disease of the RCA. Medical management was recommended. The patient's stress test was recommended and if ischemia was noted would consider revascularization of the LAD. However patient has not had a stress test completed since that time according to office records. Patient was found to be in aflutter upon arrival. There is no documented history of aflutter but patient does report having a history of atrial flutter. According to his home med list, he is prescribed Eliquis. He reports noncompliance with some of his medications because he does not have any insurance. He reports chest pain at the time of my examination. He states the pain is worse with deep inspiration and minimal movement. He reports using methamphetamines 2 days ago. Patient states he used to smoke cigarettes but states he quit. He does admit to smoking a cigar every now and then. Patient reports rarely using alcohol, however according to EMR there is documentation of daily alcohol use of 30 beers daily 07/22/2020 Patient examined this morning at the bedside. He denies shortness of breath. He reports occasional chest pain that is worse with movement. Patient was resumed on Eliquis yesterday and dose increased to 10mg BID per internal medicine. His blood pressure is elevated today with a systolic in the 160s. Echocardiogram reveals ejection fraction 35-40%, trace mitral regurgitation, trace tricuspid regurgitation PHYSICAL EXAM: VITAL SIGNS: Reviewed. GENERAL: Well-developed in no acute distress. HEENT: Head is normocephalic. Pupils are equal, round. Sclerae anicteric. Mucous membranes of the mouth are moist. Neck supple. No JVD or thyromegaly LUNGS: Respirations even and unlabored. Lungs essentially clear to auscultation bilaterally. HEART: Irregular rate and rhythm. S1 and S2 heard. ABDOMEN: Soft. Nondistended. Nontender. EXTREMITIES: Normal range of motion. No clubbing or cyanosis. Peripheral pulses intact. No lower extremity edema NEUROLOGIC: Awake and alert. Oriented x 3. ASSESSMENT: 1.Typical aflutter with RVR 2. Acute PE at left lung base 3. Coronary artery disease, s/p cardiac cath revealing moderate disease of the mid LAD and mild disease of the RCA, no stents placed at that time, medical management was recommended 4. Chronic systolic congestive heart failure, EF 35-40 5. Hypertension 6. Hyperlipidemia 7. History of DVT 8. Former nicotine dependence 9. Drug abuse, patient + for amphetamines and methamphetamines 10. Medication noncompliance PLAN: Continue current cardiac medications Begin lisinopril 5mg daily. Monitor blood pressure Consult pulmonary to evaluate CTA Patient has no insurance. He has not been taking Eliquis. Will consult case management and social work for assistance with insurance and medications. Still waiting records from [facility] Further recommendations pending patient course Nurse practitioner note has been reviewed by physician. Signing provider agrees with the documented findings, assessment, and plan of care. Objective - Vital Signs Vital signs: Vital Signs Temp 97.6 F 07/22/20 08:35 Pulse 86 07/22/20 08:35 Resp 18 07/22/20 08:35 BP 171/81 07/22/20 08:35 Pulse Ox 98 07/22/20 08:35 Intake & Output 07/21/20 07/22/20 07/22/20 18:59 06:59 18:59 Intake Total 260 400 120 Output Total 0 Balance 260 400 120 Weight 95.254 kg 96.2 kg Intake: IV 20 0.9 20 Oral 240 400 120 Output: Urine 0 Other: Voiding Method Urinal Urinal Urinal # Voids 0 - Labs CBC & Chem 7: 07/20/20 21:41 07/20/20 21:41
[2020-07-22] MEDS: lisinopriL 5 MG TAB PO SCH (12:24)
[2020-07-22] MEDS ORDERED: MELOXICAM 7.5 MG TAB PO SCH (12:45)
--- NOTE | 2020-07-22 15:08 | CONS ---
CONSULTATION PULMONARY/CRITICAL CARE CONSULTATION: 07/22/2020 REASON FOR CONSULTATION: Possible pulmonary embolism. This is a 60-year-old male who presented to the emergency department on July 21. He apparently came in with complaining of left-sided chest pain. The pain is interesting in that it is reproducible to some extent, but it is also sharp and worse on deep inspiration. There probably is a pleuritic component to the pain. The pain has been present for about five hours prior to his admission to the emergency room which was on July 20. Apparently, initially the pain was radiating to the left shoulder and down his left arm. He does have shortness of breath, but rather more pain with deep inspiration. He does have a history of cardiac disease and recently had two stents placed for myocardial infarction. He had no nausea or vomiting. There was no dizziness. There was no weakness or syncope. There was no nausea, vomiting, diarrhea, or abdominal pain. He denies any genitourinary complaints. In the process of evaluation, he was apparently found to have a couple of small pulmonary emboli in the left lower lobe. Certainly these are not causing his current symptoms. And as I mentioned, part of his pain is reproducible on palpation. Currently, the patient is on Lipitor, Lasix, hydralazine, Cymbalta, Pepcid, gabapentin, Trileptal, Prilosec, Chantix, Tenormin, aspirin, ibuprofen. ALLERGIES: Denied. His primary care provider is Dr. Nicolás Domínguez in [facility] office. MEDICAL HISTORY: Positive for angina, COPD, DVT, GERD, hyperlipidemia, hypertension, myocardial infarction, CAD, and osteoarthritis. He also has a history of hepatitis A, chronic back pain, gout, and kidney failure. In addition, there is a history of TIA. SURGICAL HISTORY: Surgical history includes bowel resection, heart catheterization with stent, hernia repair, and orthopedic procedures including shoulder surgery. In addition, the patient has had hernia repair, cataract surgery, and colostomy. SOCIAL HISTORY: Positive for previous heavy tobacco use. He does not smoke currently. He does drink alcohol daily. He apparently denied illicit drugs, but his drug screen was positive for opiates, amphetamines, and methamphetamine. FAMILY HISTORY: Positive for mother with cancer and myocardial infarction. a father with history of myocardial infarction and a sister with a history of cancer. REVIEW OF SYSTEMS: CONSTITUTIONAL: Negative. NEUROLOGIC: Negative. HEENT: Negative. CARDIOVASCULAR: Chest pain, sharp left-sided, without radiation. Worse on deep inspiration and also partially reproducible. PULMONARY: Shortness of breath on deep inspiration. GI: Negative. : Negative. RHEUMATOLOGIC: Negative. IMMUNOLOGIC: Negative. ENDOCRINOLOGIC: Negative. DERMATOLOGIC: Negative. PHYSICAL EXAMINATION: Current vital signs are reviewed. Temperature is 98, heart rate 64, respiratory rate 18, blood pressure 157/97, mean 117, room air saturation 98%. He appears in no acute distress. No respiratory distress. HEENT: Examination is grossly unremarkable. NECK: Supple. Full range of motion. No adenopathy. Neck veins are flat. CARDIOVASCULAR: Examination reveals regular rhythm and rate. S1, S2 normal. Heart rate 64. There was pain on palpation to the left chest area. Also, when he takes a deep breath, he describes pain. It is very sharp and pleuritic like. LUNGS: Examination is unremarkable. There is no wheezes, rhonchi, or crackles. Breath sounds equal. He does complain of pain on deep inspiration. ABDOMEN: Soft. Bowel sounds are heard. EXTREMITIES are intact. No cyanosis, clubbing, or edema. Skin reveals multiple areas of excoriations and lesions. He describes them secondary to bowel surgery in the past. NEUROLOGIC: Examination is brief but nonfocal. LABS: Reviewed. White count 9.1, hemoglobin 15.5, hematocrit 48.7, platelet count 308,000. PT/INR and PTT normal. D-dimer 1.52. Sodium, potassium, chloride and CO2 all normal. Anion gap normal. BUN and creatinine were normal. Troponins were 0.017 and 0.020. N terminal proBNP 3590. Drug screen as mentioned. Microbiology is currently negative. A chest x-ray shows a pattern of possible mild fluid overload. A CTA done on July 20 is positive for minimal peripheral pulmonary emboli at the left lung base, cardiomegaly, without any central pulmonary emboli. CURRENT MEDICATIONS: Reviewed. He is on Eliquis, aspirin, Lipitor, digoxin, Lasix, Dilaudid, Imdur, lisinopril, metoprolol, Singulair, Narcan, sublingual nitroglycerin and Zofran. ASSESSMENT: 1. Atypical chest pain, with a component of musculoskeletal chest wall syndrome, as well as pleuritic chest pain, possibly related to viral infection such as Coxsackie B. 2. Incidental finding of small peripheral pulmonary emboli, left base, likely not causing the patient's symptoms. 3. History of atrial flutter with rapid ventricular response. 4. History of coronary artery disease with previous stent placement. 5. Chronic systolic congestive heart failure with an ejection fraction of 35-40%. 6. History of hypertension. 7. History of hyperlipidemia. 8. Prior history of deep venous thrombosis. 9. Prior history of tobacco use. 10.History of drug abuse with both amphetamines and methamphetamines. 11.Noncompliance with medications. 12.Rule out chronic obstructive pulmonary disease. 13.History of gastroesophageal reflux disease. 14.History of hepatitis A. 15.Prior history of gout. PLAN: From my perspective, nothing more to add. He is already on Eliquis for the atrial flutter. The peripheral emboli are small and likely not causing the patient's symptoms. I do believe his chest pain is atypical and likely consistent with chest wall syndrome as well as a viral pleurisy. One could add some nonsteroid anti- inflammatory drugs or some prednisone to help with the pain. No additional recommendations are made. We will continue to follow. MMODL / IJN: [id number] /
[2020-07-22] MEDS: FUROSEMIDE 40 MG TAB PO SCH (17:04)
[2020-07-22] MEDS: DOCUSATE 100 MG CAP PO SCH (19:39)
[2020-07-22] MEDS: ATORVASTATIN 40 MG TAB PO SCH (19:39)
[2020-07-22] MEDS: MONTELUKAST 10 MG TAB PO SCH (19:39)
[2020-07-23] MEDS: HYDROmorphone 0.5 MG/0.5 ML SYRINGE IVP PRN ×2 (00:24→04:55)
[2020-07-23] MEDS ORDERED: LORazepam 2 MG/ML INJ IV PRN ×3 (00:44)
[2020-07-23 08:05] LABS: Basophils % (A) 1 %; Eosinophils # (A) 0.1 k/uL (0-0.7); Eosinophils % (A) 2 %; HCT 43.6 % (39.0-53.0); HGB 14.1 gm/dL (13.0-17.5); Lymphocytes # (A) 2.1 k/uL (1.0-4.8); Lymphocytes % (A) 36 %; MCH 29.6 pg (25.0-35.0); MCHC 32.4 g/dL (31.0-37.0); MCV 91.4 fL (80.0-100.0); Mean Platelet Volume 9.8; Monocytes # (A) 0.3 k/uL (0-1.0); Monocytes % (A) 5 %; Neutrophils # (A) 3.2 k/uL (1.3-7.7); Neutrophils % (A) 55 %; Platelet Count 171 k/uL (150-450); RBC 4.77 m/uL (4.30-5.90); RDW 15.3 % (11.5-15.5); WBC 5.8 k/uL (3.8-10.6)
[2020-07-23 08:11] LABS: African American GFR (CKD) >90 (>60 ml/min/1.73 sqM); Anion Gap 4 mmol/L; Blood Urea Nitrogen 16 mg/dL (9-20); Calcium 8.5 mg/dL (8.4-10.2); Carbon Dioxide 26 mmol/L (22-30); Chloride 106 mmol/L (98-107); Glucose 89 mg/dL (74-99); Magnesium 1.9 mg/dL (1.6-2.3); Non-African American GFR(CKD) >90 (>60 ml/min/1.73 sqM); Potassium 3.9 mmol/L (3.5-5.1); Sodium 136 mmol/L (137-145)
[2020-07-23] MEDS ORDERED: IBUPROFEN 600 MG TAB PO PRN (08:50)
[2020-07-23] MEDS ORDERED: HYDROcodone/APAP 5-325MG 1 EACH TAB PO PRN (08:50)
[2020-07-23] MEDS ORDERED: predniSONE 10 MG TAB PO SCH (09:00)
[2020-07-23] MEDS: ISOSORBIDE MONONITRATE ER 30 MG TAB.ER.24H PO SCH (09:41)
[2020-07-23] MEDS: FUROSEMIDE 20 MG TAB PO SCH (09:41)
[2020-07-23] MEDS: lisinopriL 5 MG TAB PO SCH (09:41)
[2020-07-23] MEDS: METOPROLOL TARTRATE 25 MG TAB PO SCH (09:41)
[2020-07-23] MEDS: DOCUSATE 100 MG CAP PO SCH (09:42)
[2020-07-23] MEDS: APIXABAN 5 MG TAB PO SCH (09:42)
[2020-07-23] MEDS: DIGOXIN 125 MCG TAB PO SCH (09:42)
--- NOTE | 2020-07-23 12:34 | P.PN ---
Subjective Progress Note Date: 07/23/20 CHIEF COMPLAINT: A flutter HISTORY OF PRESENT ILLNESS: 07/21/2020 This is a 60-year-old male with a past medical history significant for DVT, hyperlipidemia, hypertension, osteoarthritis, coronary artery disease and drug abuse. Patient follows in the office with Dr. Queen. We have been asked to see the patient in consultation for a flutter. Patient examined at the bedside in the emergency room. Patient was hospitalized at [facility] in April 2020. He underwent cardiac cath at that time revealing moderate disease of the mid LAD and mild disease of the RCA. Medical management was recommended. The patient's stress test was recommended and if ischemia was noted would consider revascularization of the LAD. However patient has not had a stress test completed since that time according to office records. Patient was found to be in aflutter upon arrival. There is no documented history of aflutter but patient does report having a history of atrial flutter. According to his home med list, he is prescribed Eliquis. He reports noncompliance with some of his medications because he does not have any insurance. He reports chest pain at the time of my examination. He states the pain is worse with deep inspiration and minimal movement. He reports using methamphetamines 2 days ago. Patient states he used to smoke cigarettes but states he quit. He does admit to smoking a cigar every now and then. Patient reports rarely using alcohol, however according to EMR there is documentation of daily alcohol use of 30 beers daily 07/22/2020 Patient examined this morning at the bedside. He denies shortness of breath. He reports occasional chest pain that is worse with movement. Patient was resumed on Eliquis yesterday and dose increased to 10mg BID per internal medicine. His blood pressure is elevated today with a systolic in the 160s. Echocardiogram reveals ejection fraction 35-40%, trace mitral regurgitation, trace tricuspid regurgitation 07/23/2020 Patient examined at the bedside. He denies shortness of breath. He reports improvement in chest discomfort. PHYSICAL EXAM: VITAL SIGNS: Reviewed. GENERAL: Well-developed in no acute distress. HEENT: Head is normocephalic. Pupils are equal, round. Sclerae anicteric. Mucous membranes of the mouth are moist. Neck supple. No JVD or thyromegaly LUNGS: Respirations even and unlabored. Lungs essentially clear to auscultation bilaterally. HEART: Irregular rate and rhythm. S1 and S2 heard. ABDOMEN: Soft. Nondistended. Nontender. EXTREMITIES: Normal range of motion. No clubbing or cyanosis. Peripheral pulses intact. No lower extremity edema NEUROLOGIC: Awake and alert. Oriented x 3. ASSESSMENT: 1.Typical aflutter with RVR 2. Acute PE at left lung base 3. Coronary artery disease, s/p cardiac cath revealing moderate disease of the mid LAD and mild disease of the RCA, no stents placed at that time, medical management was recommended 4. Chronic systolic congestive heart failure, EF 35-40 5. Hypertension 6. Hyperlipidemia 7. History of DVT 8. Former nicotine dependence 9. Drug abuse, patient + for amphetamines and methamphetamines 10. Medication noncompliance PLAN: Continue current cardiac medications Case management and social work on consult due to lack of prescription drug coverage. Patient has not been taking his Eliquis at home. Internal medicine attempting to see if we can get patient 1 month free of medication. If so, patient may be discharged home this afternoon. Further recommendations pending patient course Nurse practitioner note has been reviewed by physician. Signing provider agrees with the documented findings, assessment, and plan of care. Objective - Vital Signs Vital signs: Vital Signs Temp 97.7 F 07/23/20 08:00 Pulse 60 07/23/20 08:00 Resp 24 07/23/20 08:00 BP 148/89 07/23/20 08:00 Pulse Ox 97 07/23/20 09:40 Intake & Output 07/22/20 07/23/20 07/23/20 18:59 06:59 18:59 Intake Total 720 780 240 Balance 720 780 240 Weight 84.3 kg Intake: Oral 720 780 240 Other: Voiding Method Toilet Urinal # Voids 2 1 # Bowel Movements 1 - Labs CBC & Chem 7: 07/23/20 06:53 07/23/20 06:53 Labs: Abnormal Lab Results - Last 24 Hours (Table) 07/23/20 Range/Units 06:53 Sodium 136 L (137-145) mmol/L
[2020-07-23 12:40] VITALS: BP 135/72; PULSE 63; RESP 20; TEMP 98
--- NOTE | 2020-07-23 12:50 | PN ---
PROGRESS NOTE PULMONARY/CRITICAL CARE PROGRESS NOTE: DATE OF SERVICE: July 23, 2020. INTERVAL HISTORY: This is a patient who we saw yesterday in consultation for chest pain and pulmonary embolism. The patient came in complaining of sharp left-sided chest pain. It was worse on deep inspiration and it also was reproducible. In addition, there is the incidental finding of a small pulmonary embolism, in the left lower lobe. Currently, I have recommended both steroids and nonsteroid anti-inflammatory drugs as I thought the patient likely had some viral pleurisy and also musculoskeletal chest wall syndrome. Today, he is not feeling much or any better. I doubt that the small pulmonary embolism is causing his pain. PHYSICAL EXAMINATION: VITAL SIGNS: Currently, his vital signs include 2 L saturation 97-99 percent. Blood pressure 148/89, mean 108, heart rate 60, respiratory rate 24 and temperature 97.7. GENERAL: Appears in no acute distress. No respiratory distress. HEENT: Examination is grossly unremarkable. NECK: Supple. Full range of motion. CARDIOVASCULAR: Examination reveals regular rhythm and rate. Heart rate 60. S1, S2 normal. There is reproducible pain on palpation to the anterior left chest area. LUNGS: Reveal clear breath sounds. No wheezes, rhonchi, or crackles. ABDOMEN: Soft. Bowel sounds are heard. EXTREMITIES are intact. No cyanosis, clubbing, or edema. SKIN: Without rash. NEUROLOGIC: Examination is nonfocal. LABORATORY DATA: White count 5.8, hemoglobin 14.1, hematocrit 43.6, platelet count 171,000. Sodium, potassium chloride, CO2, anion gap, BUN and creatinine all normal. Drug screen was positive for opiates, amphetamines, methamphetamine. Troponins are essentially negative x3. Microbiology is negative. X-rays and other studies were reviewed. CURRENT MEDICATIONS: Include Eliquis, aspirin, Lipitor, digoxin, Colace, Lasix Admire, Motrin, Imdur, lisinopril, Ativan, metoprolol, Singulair, Narcan, nitroglycerin, Zofran, prednisone and thiamine. ASSESSMENT: 1. Atypical chest pain, with component of musculoskeletal chest wall syndrome as well as pleurisy, possibly related to viral infection caused by Coxsackie B infection. 2. Incidental finding of a small peripheral pulmonary emboli, left base, likely not causing the patient's symptoms. 3. History of atrial flutter with rapid ventricular response. 4. History of coronary artery disease with previous stent placement. 5. Chronic systolic heart failure with ejection fraction of 35-40 percent. 6. History of essential hypertension. 7. Hyperlipidemia by history. 8. Prior history of deep venous thrombosis. 9. History of tobacco use. 10.History of drug abuse with both amphetamines and methamphetamines. 11.Noncompliance with medications. 12.Rule out chronic obstructive pulmonary disease. 13.History of gastroesophageal reflux disease. 14.History of hepatitis A. 15.Prior history of gout. PLAN: I recommend a nonsteroid anti-inflammatory drugs along with prednisone. He is on both. He states that he is not having any relief at all. Again, I do not think the pulmonary emboli is causing his chest pain or discomfort. We will continue to follow. Prognosis is guarded. MMODL / IJN: [id number] /
--- NOTE | 2020-07-23 13:13 | P.DS ---
Providers Date of admission: 07/21/20 00:11 Expected date of discharge: 07/23/20 Attending physician: Ginny Hodges MD Consults: 07/20/20 23:37 Consult Physician Routine Consulting Provider: [facility] Consult Reason/Comments: Chest pain; Aflutter Do you want consulting provider notified?: Yes 07/22/20 10:45 Consult Physician Routine Consulting Provider: Nikita Vila Consult Reason/Comments: abnormal CTA, PE Do you want consulting provider notified?: Yes Primary care physician: Stated None Hospital Course: Discharge Diagnosis: acute left sided pulmonary embolism A flutter with RVR on presentation Pleurisy CAD Chronic systolic CHF with EF 35-40% HTN HLD Polysubstance abuse Hospital Course: Patient is a 60 yo CM with a hx of CAD s/p stent placement, DVT, GERD, HTN, and HLD who presented to the emergency room with complaints of chest pain, palpitation, and shortness of breath. Patient underwetn extensive evluation in the emergency department which showed A flutter with a 2:1 conduction. CTA of the chest showed small left pulmonary embolism. His troponin was normal and BNP was slightly elevated. He was started on a cardizem gtt and lovenox and was admitted for further monitoring. It was noted that he had been out of his medications as he does not have prescription coverage. He was transitioned to his home metoprolol dose. Cardiology was consulted and 2D echo was ordered. Which showed an EF 35-40% which is lower than his last known EF. He was started on lisinopril. He was seen by pulmonary who agreed with mamagement and suggest adding NSAIDs for pain control of pleurisy. He had significant left chest pain with 3 negative troponins which was determined to be due to pleurisy from his Pulmonary embolism. His Heart rate stablized and he was determined stable for discharge. He did then stte he was supossed to be following with Nicolás Domínguez. He will follow with him and Dr. Queen on discharge. His RX were sent to [facility] where they are all on the $4 list. He was able to get a one month supply of free Xarelto. Patient seen and examined at bedside. he continues to have chest pain with movement and deep inspiration. He states shortness of breath is at baseline. States he has insurance but no prescription drug coverage. Vital signs reviewed and stable. General: non toxic, no distress, appears at stated age Derm: warm, dry Head: atraumatic, normocephalic, symmetric Eyes: EOMI, no lid lag, anicteric sclera Mouth: no lip lesion, mucus membranes moist Cardiovascular: S1S2 reg, no murmur, positive posterior tibial pulse bilateral, Pain to palpation of left chest wall- no rash on skin exam. Lungs: CTA bilateral, no rhonchi, no rales , no accessory muscle use Abdominal: soft, nontender to palpation, no guarding, no appreciable organomegaly Ext: no gross muscle atrophy, no edema, no contractures Neuro: CN II-XI grossly intact, no focal neuro deficits Psych: Alert, oriented, appropriate affect A total of 45 minutes of time were spent preparing this complex discharge summary . Patient Condition at Discharge: Stable Plan - Discharge Summary Discharge Rx Participant: No New Discharge Prescriptions: New Rivaroxaban [Xarelto Starter Pack] 0 mg PO DIRECTED 30 Days #1 pack No Action RX: Furosemide [Lasix] 40 mg PO W/SUPPER Ibuprofen [Motrin Ib] 200 - 800 mg PO Q8H PRN PRN Reason: Pain RX: Aspirin 81 mg PO DAILY PRN PRN Reason: Chest Pain Isosorbide Mononitrate ER [Imdur] 30 mg PO DAILY Furosemide [Lasix] 60 mg PO DAILY Digoxin [Lanoxin] 125 mcg PO DAILY Montelukast Sodium [Singulair] 10 mg PO HS RX: Metoprolol Tartrate 75 mg PO TID Atorvastatin [Lipitor] 40 mg PO HS Apixaban [Eliquis] 5 mg PO BID Discharge Medication List RX: Furosemide [Lasix] 40 mg PO W/SUPPER 11/10/17 [History] Ibuprofen [Motrin Ib] 200 - 800 mg PO Q8H PRN 07/20/20 [History] RX: Aspirin 81 mg PO DAILY PRN 07/20/20 [History] Apixaban [Eliquis] 5 mg PO BID 07/21/20 [History] Atorvastatin [Lipitor] 40 mg PO HS 07/21/20 [History] Digoxin [Lanoxin] 125 mcg PO DAILY 07/21/20 [History] Furosemide [Lasix] 60 mg PO DAILY 07/21/20 [History] Isosorbide Mononitrate ER [Imdur] 30 mg PO DAILY 07/21/20 [History] Montelukast Sodium [Singulair] 10 mg PO HS 07/21/20 [History] RX: Metoprolol Tartrate 75 mg PO TID 07/21/20 [History] Rivaroxaban [Xarelto Starter Pack] 0 mg PO DIRECTED 30 Days #1 pack 07/23/20 [Rx] Follow up Appointment(s)/Referral(s): None,Stated [Primary Care Provider] - 1-2 days
--- NOTE | 2020-07-23 14:19 | US ---
EXAMINATION TYPE: US venous doppler duplex LE BI DATE OF EXAM: 07/21/2020 11:48 AM COMPARISON: NONE CLINICAL HISTORY: DVT?. Hx of PE SIDE PERFORMED: Bilateral TECHNIQUE: The lower extremity deep venous system is examined utilizing real time linear array sonog anamika with graded compression, doppler sonography and color-flow sonography. VESSELS IMAGED: Common Femoral Vein Deep Femoral Vein Greater Saphenous Vein * Femoral Vein Popliteal Vein Small Saphenous Vein * Proximal Calf Veins (* superficial vessels) Right Leg: Negative for DVT Left Leg: Negative for DVT IMPRESSION: No evidence of deep vein thrombosis in both legs.
[2020-07-23] MEDS ORDERED: THIAMINE 100 MG TAB PO SCH (17:30)
[2020-07-24 09:34] LABS: Glucose,Whole Blood 86 mg/dL (75-99)
[2020-07-24 09:35] LABS: Glucose,Whole Blood 108 mg/dL (75-99)
[2020-07-28 05:23] LABS: Glucose,Whole Blood 90 mg/dL (75-99)
[2020-07-28 05:23] LABS: Glucose,Whole Blood 120 mg/dL (75-99)
[2020-07-28 05:39] LABS: Glucose,Whole Blood 89 mg/dL (75-99)
[2020-07-28 05:39] LABS: Glucose,Whole Blood 100 mg/dL (75-99)
[2020-07-28 05:39] LABS: Glucose,Whole Blood 119 mg/dL (75-99)
[2020-07-28 05:39] LABS: Glucose,Whole Blood 93 mg/dL (75-99)
== END 2020-07-23 14:21 | disposition home or self-care (01) | DRG 308 ==
LOC: EC 21:17 → 1SOBS 23:31 → OBSVTOIN 07-21 00:11 → 3SCARD 07-21 00:13
PROVIDERS: ADMIT Internal Medicine; ATTEND Internal Medicine
DX: I48.3 Typical atrial flutter (principal); I26.99 Other pulmonary embolism without acute cor pulmonale; I50.22 Chronic systolic (congestive) heart failure; R07.89 Other chest pain; I45.89 Other specified conduction disorders; I25.10 Atherosclerotic heart disease of native coronary artery without angina pectoris; I11.0 Hypertensive heart disease with heart failure; F15.10 Other stimulant abuse, uncomplicated; F19.10 Other psychoactive substance abuse, uncomplicated; J44.9 Chronic obstructive pulmonary disease, unspecified; Z93.3 Colostomy status; B34.9 Viral infection, unspecified; E78.5 Hyperlipidemia, unspecified; T50.906A Underdosing of unspecified drugs, medicaments and biological substances, initial encounter; F32.9 Major depressive disorder, single episode, unspecified; F41.9 Anxiety disorder, unspecified; I25.2 Old myocardial infarction; K21.9 Gastro-esophageal reflux disease without esophagitis; R09.1 Pleurisy; G89.29 Other chronic pain; M10.9 Gout, unspecified; M19.90 Unspecified osteoarthritis, unspecified site; M54.9 Dorsalgia, unspecified; R73.9 Hyperglycemia, unspecified; Z79.01 Long term (current) use of anticoagulants; Z79.82 Long term (current) use of aspirin; Z79.899 Other long term (current) drug therapy; Z95.5 Presence of coronary angioplasty implant and graft; Z87.891 Personal history of nicotine dependence; Z86.73 Personal history of transient ischemic attack (TIA), and cerebral infarction without residual deficits; Z86.718 Personal history of other venous thrombosis and embolism; Z86.14 Personal history of Methicillin resistant Staphylococcus aureus infection; Z98.42 Cataract extraction status, left eye; Z98.41 Cataract extraction status, right eye; Z87.19 Personal history of other diseases of the digestive system; Z90.49 Acquired absence of other specified parts of digestive tract; Z98.890 Other specified postprocedural states; Z91.120 Patient's intentional underdosing of medication regimen due to financial hardship; Z80.9 Family history of malignant neoplasm, unspecified; Z82.49 Family history of ischemic heart disease and other diseases of the circulatory system
CPT/HCPCS: 36415; 71046; 71275; 80048; 80053; 80306; 83735; 83880; 84484; 85025; 85379; 85610; 85730; 93005; 93306; 93970; 94760; 96372; 96374; 96375; 96376; 99285

== ENCOUNTER 2020-10-12 03:45 | Inpatient (IN) | payer MEDICARE ==
[2020-10-12] MEDS ORDERED: SODIUM CHLORIDE 0.9% 1,000 ML IV STA ×2 (04:09)
[2020-10-12] MEDS ORDERED: HYDROmorphone 1 MG/ML 1 ML SYRINGE IVP STA (04:09)
--- NOTE | 2020-10-12 04:15 | ED ---
Chest Pain HPI - General Chief Complaint: Chest Pain Stated Complaint: Left side pain Time Seen by Provider: 10/12/20 03:55 Source: patient Mode of arrival: ambulatory Limitations: no limitations - Related Data Home Medications Medication Instructions Recorded Confirmed Aspirin 81 mg PO DAILY PRN 07/20/20 07/20/20 Ibuprofen [Motrin Ib] 200 - 800 mg PO Q8H PRN 07/20/20 07/20/20 Previous Rx's Medication Instructions Recorded Atorvastatin [Lipitor] 40 mg PO HS #30 tab 07/23/20 Digoxin [Lanoxin] 125 mcg PO DAILY #30 tab 07/23/20 Furosemide [Lasix] 40 mg PO BID #60 tab 07/23/20 HYDROcodone/APAP 5-325MG [[place] 1 each PO Q6HR PRN #12 tab 07/23/20 5-325] Isosorbide Mononitrate ER [Imdur] 30 mg PO DAILY #30 tab 07/23/20 Metoprolol Tartrate [Lopressor] 75 mg PO BID #90 tab 07/23/20 Montelukast Sodium [Singulair] 10 mg PO HS #30 tab 07/23/20 Rivaroxaban [Xarelto Starter Pack] 0 mg PO DIRECTED 30 Days #1 pack 07/23/20 predniSONE 30 mg PO DAILY #12 tab 07/23/20 Allergies Allergy/AdvReac Type Severity Reaction Status Date / Time No Known Allergies Allergy Verified 10/12/20 04:03 Review of Systems ROS Statement: Those systems with pertinent positive or pertinent negative responses have been documented in the HPI. ROS Other: All systems not noted in ROS Statement are negative. EKG Findings - EKG Comments: EKG Findings:: EKG shows sinus rhythm 82 MO 200 QRS 108 QTc 450 Past Medical History Past Medical History: Chest Pain / Angina, COPD, Deep Vein Thrombosis (DVT), GERD/Reflux, Hyperlipidemia, Hypertension, Myocardial Infarction (PA), Osteoarthritis (OA) Additional Past Medical History / Comment(s): History of hepatitis A, chronic pain, gout, "kidneys shut down x2 when sick". Back pain, TIA 2009 Last Myocardial Infarction Date:: 1999 History of Any Multi-Drug Resistant Organisms: MRSA Date of last positivie culture/infection: 2015 MDRO Source:: face MRSA Past Surgical History: Bowel Resection, Heart Catheterization With Stent, Hernia Repair, Orthopedic Surgery Additional Past Surgical History / Comment(s): Shoulder surgery, hernia, cataracts, pain clinic procedures, colostomy. Past Anesthesia/Blood Transfusion Reactions: No Reported Reaction Date of Last Stent Placement:: 1999 Past Psychological History: Anxiety, Depression Smoking Status: Former smoker Past Alcohol Use History: Daily Past Drug Use History: None Reported - Past Family History Mother Family Medical History: Cancer, Myocardial Infarction (PA) Additional Family Medical History / Comment(s): Mother had unknown type of cancer. She of a PA at the age of 68yrs. Father Family Medical History: Myocardial Infarction (PA) Additional Family Medical History / Comment(s): Father from his heart "exploding" at the age of 58 yrs. Sister(s) Family Medical History: Cancer Additional Family Medical History / Comment(s): Sisters x2 General Exam Limitations: no limitations Course Vital Signs 10/12/20 03:53 Temperature 98.0 F Pulse Rate 79 Respiratory 24 Rate Blood Pressure 212/118 O2 Sat by Pulse 100 Oximetry Disposition Clinical Impression: Atypical chest pain, CAD (coronary artery disease), [place] coronary artery, Acute pneumonia Disposition: ADMITTED IP TO THIS HOSP Condition: Fair Is patient prescribed a controlled substance at d/c from ED?: No Referrals: None,Stated [Primary Care Provider] - 1-2 days
[2020-10-12 04:48] LABS: Basophils # (A) 0.1 k/uL (0-0.2); Basophils % (A) 1 %; Eosinophils # (A) 0.4 k/uL (0-0.7); Eosinophils % (A) 3 %; HCT 52.4 % (39.0-53.0); Lymphocytes # (A) 3.4 k/uL (1.0-4.8); Lymphocytes % (A) 31 %; MCHC 32.4 g/dL (31.0-37.0); MCV 92.6 fL (80.0-100.0); Mean Platelet Volume 9.2; Monocytes # (A) 0.5 k/uL (0-1.0); Monocytes % (A) 4 %; Neutrophils # (A) 6.5 k/uL (1.3-7.7); Neutrophils % (A) 60 %; Platelet Count 211 k/uL (150-450); RBC 5.66 m/uL (4.30-5.90); WBC 10.9 k/uL (3.8-10.6)
--- NOTE | 2020-10-12 05:07 | CT ---
EXAM: CT Angiography Chest With Intravenous Contrast CLINICAL HISTORY: ITS.REASON CT Reason: pain TECHNIQUE: Axial computed tomographic angiography images of the chest with intravenous contrast. CTDI is 10.5 mGy and DLP is 398.4 mGy-cm. This CT exam was performed using one or more of the following dose reduction techniques: automated exposure control, adjustment of the mA and/or kV according to patient size, and/or use of iterative reconstruction technique. MIP reconstructed images were created and reviewed. COMPARISON: No relevant prior studies available. FINDINGS: Pulmonary arteries: No pulmonary embolus. Aorta: No acute findings. No thoracic aortic aneurysm. Lungs: Diffuse bronchial wall thickening with scattered areas of reticular and ground glass opacities likely representing an infectious process. Centrilobular and paraseptal emphysema. Pleural space: Unremarkable. No significant effusion. No pneumothorax. Heart: Coronary artery calcifications. No significant pericardial effusion. No evidence of RV dysfunction. Mediastinum: Subcentimeter mediastinal and hilar lymph nodes, likely reactive. Bones/joints: No acute fracture. No dislocation. Soft tissues: Unremarkable. Lymph nodes: Unremarkable. No enlarged lymph nodes. IMPRESSION: 1. No pulmonary embolus. 2. Diffuse bronchial wall thickening with scattered areas of reticular and ground glass opacities likely representing an infectious process.
[2020-10-12 05:11] LABS: INR 0.9 (<1.2); Partial Thromboplastin Time 24.2 sec (22.0-30.0); Prothrombin Time 9.8 sec (9.0-12.0)
[2020-10-12 05:15] LABS: ALT 15 U/L (4-49); AST 22 U/L (17-59); African American GFR (CKD) >90 (>60 ml/min/1.73 sqM); Alkaline Phosphatase 113 U/L (38-126); Anion Gap 8 mmol/L; Blood Urea Nitrogen 14 mg/dL (9-20); Calcium 9.2 mg/dL (8.4-10.2); Carbon Dioxide 28 mmol/L (22-30); Chloride 103 mmol/L (98-107); Creatine Kinase 41 U/L (55-170); Glucose 148 mg/dL (74-99); Magnesium 2.2 mg/dL (1.6-2.3); Non-African American GFR(CKD) >90 (>60 ml/min/1.73 sqM); Phosphorus 5.1 mg/dL (2.5-4.5); Potassium 4.4 mmol/L (3.5-5.1); Sodium 139 mmol/L (137-145); Total Bilirubin 0.4 mg/dL (0.2-1.3); Total Protein 7.1 g/dL (6.3-8.2)
--- NOTE | 2020-10-12 05:17 | CT ---
EXAM: CT Abdomen and Pelvis With Intravenous Contrast CLINICAL HISTORY: ITS.REASON CT Reason: pain TECHNIQUE: Axial computed tomography images of the abdomen and pelvis with intravenous contrast. CTDI is 33.17 mGy and DLP is 1254.6 mGy-cm. This CT exam was performed using one or more of the following dose reduction techniques: automated exposure control, adjustment of the mA and/or kV according to patient size, and/or use of iterative reconstruction technique. COMPARISON: 03/12/2019 FINDINGS: Lung bases: Bibasilar atelectasis and/or scarring. ABDOMEN: Liver: Lobular contour liver suggesting cirrhosis. Gallbladder and bile ducts: Unremarkable. Pancreas: Unremarkable. Spleen: Unremarkable. Adrenals: Unremarkable. Kidneys and ureters: Unremarkable. Stomach and bowel: Colonic diverticulosis. Post surgical changes within the colon likely low anterior resection. PELVIS: Appendix: Appendix is not identified. Bladder: Unremarkable. Reproductive: Unremarkable as visualized. ABDOMEN and PELVIS: Intraperitoneal space: Unremarkable. Bones/joints: No acute fracture. No dislocation. Soft tissues: Fat-containing ventral wall hernia. Vasculature: Vascular calcifications. Lymph nodes: Unremarkable. IMPRESSION: No acute findings in the abdomen or pelvis.
[2020-10-12 05:25] LABS: D-Dimer 1.05 mg/L FEU (<0.60)
[2020-10-12] MEDS ORDERED: PNEUMONIA PROTOCOL UTILIZED 1 EACH MISC PO PRN (05:35)
[2020-10-12] MEDS ORDERED: NITROGLYCERIN SL TABS 0.4 MG TAB SUBLINGUAL PRN (05:35)
[2020-10-12] MEDS ORDERED: ASPIRIN 81 MG PO STA (05:35)
[2020-10-12] MEDS ORDERED: IPRATROPIUM-ALBUTEROL 3 ML NEB INHALATION PRN (05:35)
[2020-10-12 05:38] LABS: Creatine Kinase MB 0.5 ng/mL (0.0-2.4); Troponin I 0.018 ng/mL (0.000-0.034)
[2020-10-12] MEDS ORDERED: hydrALAZINE HCL 20 MG/ML 1 ML VIAL IVP STA (05:43)
[2020-10-12] MEDS ORDERED: SODIUM CHLORIDE 0.9% 1,000 ML IV SCH (05:45)
[2020-10-12] MEDS ORDERED: AZITHROMYCIN 500 MG in SODIUM CHLORIDE 0.9% 250 ML IVPB ONE (06:00)
[2020-10-12] MEDS ORDERED: LORazepam 2 MG/ML INJ IV STA (06:02)
[2020-10-12] MEDS ORDERED: LORazepam 2 MG/ML INJ IV PRN (06:02)
[2020-10-12] MEDS ORDERED: diphenhydrAMINE 50 MG/ML 1 ML VIAL IVP PRN (06:02)
[2020-10-12] MEDS ORDERED: diphenhydrAMINE 50 MG/ML 1 ML VIAL IVP STA (06:02)
[2020-10-12] MEDS: MORPHINE SULFATE 4 MG/ML SYRINGE IV PRN (06:11)
[2020-10-12] MEDS ORDERED: lisinopriL 10 MG TAB PO SCH (09:00)
[2020-10-12] MEDS: METOPROLOL TARTRATE 25 MG TAB PO SCH ×2 (09:03→23:14)
[2020-10-12] MEDS: lisinopriL 20 MG TAB PO SCH (09:04)
[2020-10-12] MEDS: HYDROmorphone 1 MG/ML 1 ML SYRINGE IVP PRN ×4 (10:12→23:11)
--- NOTE | 2020-10-12 10:18 | P.CRDCN ---
History of Present Illness History of present illness: HISTORY OF PRESENTING ILLNESS This is a pleasant 60-year-old male past medical history significant for cardiomyopathy, chronic systolic heart failure, coronary artery disease s/p PCI mid RCA 2003, paroxysmal atrial fibrillation on xarelto, hypertension, dyslipidemia, COPD, DVT and PE in the past. He follows in the office with Dr. Queen. We have been asked to see in consultation for chest pain. He is seen and examined laying flat on the stretcher in the ER. He states he was woken up out of sleep last night with a heavy pain in his chest in the left precordial region. The pain radiated through to his back and was exacerbated by deep breathing. He has been coughing and had a headache for the last 3 days. He didn't specifically check his temperature but felt hot and then cold/clammy at times. He denies shortness of breath, dizziness or palpitations. He has been started on antibiotics for pneumonia. He had a LHC performed at [facility] 04/2020 revealing moderate area of plaque in the mid LAD and mild disease of the previously stented RCA. Medical management advised. In July 2020 he had a nuclear stress test that did not show reversibility in the LAD territory. He does verbalize that this pain he is having now is different than his angina. He was here in June of last year and underwent an echo revealing impaired LV systolic function with EF 35-40%, moderate LVH, grade II diastolic dysfunction and moderately dilated LA. This was the first time he had a cardiomyopathy. At that time he also had a PE and new onset afib. DIAGNOSTICS EKG reveals sinus mechanism with LVH and T-wave inversions laterally suggestive of LVH. CTA is negative for PE with evidence of diffuse bronchial wall thickening, scattered areas of reticular and ground glass opacities. CT abdomen/pelvis unremarkable. Laboratory reviewed, WBC 10.9, hgb 17, plt 211, d-dimer 1.05, sodium 139, potassium 4.4, creatinine 0.71, magnesium 2.2, troponin negative x2 and proBNP 557. Current cardiac medications include lisinopril 20 mg daily, xarelto 20 mg daily, aspirin 81 mg daily, atorvastatin 40 mg daily, digoxin 125 mcg daily, lasix 40 mg BID, imdure 30 mg daily and lopressor 75 mg daily. REVIEW OF SYSTEMS At the time of my exam: CONSTITUTIONAL: Denies fever or chills. CARDIOVASCULAR: Complains of chest pain. Denies shortness of breath, orthopnea, PND or palpitations. RESPIRATORY: Denies cough. GASTROINTESTINAL: Denies abdominal pain, diarrhea, constipation, nausea or vomiting. MUSCULOSKELETAL: Denies myalgias. NEUROLOGIC: Denies numbness, tingling, headacbe or weakness. ENDOCRINE: Denies fatigue, weight change, polydipsia or polyurina. GENITOURINARY: Denies burning, hematuria or urgency with micturation. HEMATOLOGIC: Denies history of anemia or bleeding. PHYSICAL EXAMINATION Blood pressure 141/89 heart rate 65 afebrile and maintaining oxygen saturation on room air. CONSTITUTIONAL: No apparent distress. HEENT: Head is normocephalic. Pupils are equal, round. Sclerae anicteric. Mucous membranes of the mouth are moist. No JVD. No carotid bruit. CHEST EXAMINATION: Expiratory wheezes throughout. No chest wall tenderness is noted on palpation or with deep breathing. HEART EXAMINATION: Regular rate and rhythm. S1, S2 heard. No murmurs, gallops or rub. ABDOMEN: Soft, nontender. Positive bowel sounds. EXTREMITIES: 2+ peripheral pulses, no lower extremity edema and no calf tenderness. NEUROLOGIC EXAMINATION: Patient is awake, alert and oriented x3. ASSESSMENT Chest pain, pleuritic Pneumonia Paroxysmal atrial fibrillation on xarelto Cardiomyopathy, likely related to afib at the time was new onset Chronic systolic and diastolic heart failure, clinically euvolemic Coronary artery disease s/p PCI RCA and subsequent LAD lesion with no evidence of reversibility Hypertension Dyslipidemia COPD Chronic nicotine dependence History of DVT and PE in the past PLAN Chest pain is pleuritic in nature secondary to pneumonia, not cardiac in etiology. Repeat echocardiogram to assess for improvement in LV function. Resume lisinopril, lopressor, xarelto, aspirin, atorvastatin, imdur, lasix and digoxin as previously ordered. Continue antibiotics as ordered in ER. No evidence to suggest acute heart failure, clinically euvolemic. Recommend follow up with Dr. Queen in the office upon discharge. Thank you kindly for this consultation. Nurse Practitioner note has been reviewed, I agree with a documented findings and plan of care. Patient was seen and examined. Past Medical History Past Medical History: Chest Pain / Angina, COPD, Deep Vein Thrombosis (DVT), GERD/Reflux, Hyperlipidemia, Hypertension, Myocardial Infarction ([place]), Osteoarthritis (OA) Additional Past Medical History / Comment(s): History of hepatitis A, chronic pain, gout, "kidneys shut down x2 when sick". Back pain, TIA 2009 Last Myocardial Infarction Date:: 1999 History of Any Multi-Drug Resistant Organisms: MRSA Date of last positivie culture/infection: 2015 MDRO Source:: face MRSA Past Surgical History: Bowel Resection, Heart Catheterization With Stent, Hernia Repair, Orthopedic Surgery Additional Past Surgical History / Comment(s): Shoulder surgery, hernia, cataracts, pain clinic procedures, colostomy. Past Anesthesia/Blood Transfusion Reactions: No Reported Reaction Date of Last Stent Placement:: 1999 Past Psychological History: Anxiety, Depression Smoking Status: Former smoker Past Alcohol Use History: Daily Past Drug Use History: None Reported - Past Family History Mother Family Medical History: Cancer, Myocardial Infarction ([place]) Additional Family Medical History / Comment(s): Mother had unknown type of can cer. She of a [place] at the age of 68yrs. Father Family Medical History: Myocardial Infarction ([place]) Additional Family Medical History / Comment(s): Father from his heart "exploding" at the age of 58 yrs. Sister(s) Family Medical History: Cancer Additional Family Medical History / Comment(s): Sisters x2 Medications and Allergies Home Medications Medication Instructions Recorded Confirmed Type Aspirin 81 mg PO DAILY PRN 07/20/20 10/12/20 History Ibuprofen [Motrin Ib] 200 - 800 mg PO Q8H PRN 07/20/20 10/12/20 History Atorvastatin [Lipitor] 40 mg PO HS #30 tab 07/23/20 10/12/20 Rx Digoxin [Lanoxin] 125 mcg PO DAILY #30 tab 07/23/20 10/12/20 Rx Furosemide [Lasix] 40 mg PO BID #60 tab 07/23/20 10/12/20 Rx Isosorbide Mononitrate ER [Imdur] 30 mg PO DAILY #30 tab 07/23/20 10/12/20 Rx Metoprolol Tartrate [Lopressor] 75 mg PO BID #90 tab 07/23/20 10/12/20 Rx Montelukast Sodium [Singulair] 10 mg PO HS #30 tab 07/23/20 10/12/20 Rx Rivaroxaban [Xarelto] 15 mg PO DAILY 10/12/20 10/12/20 History Allergies Allergy/AdvReac Type Severity Reaction Status Date / Time No Known Allergies Allergy Verified 10/12/20 06:41 Physical Exam Vitals: Vital Signs Temp Pulse Resp BP Pulse Ox 10/12/20 08:07 65 16 141/89 99 10/12/20 06:56 82 22 174/82 98 10/12/20 05:15 88 24 154/101 97 10/12/20 05:02 24 10/12/20 03:53 98.0 F 79 24 212/118 100 Intake and Output 10/11/20 10/12/20 10/12/20 22:59 06:59 14:59 Other: Weight 90.718 kg Results 10/12/20 04:25 10/12/20 04:25 Cardiac Enzymes 10/12/20 10/12/20 10/12/20 Range/Units 04:25 04:25 07:45 AST 22 (17-59) U/L CK-MB (CK-2) 0.5 (0.0-2.4) ng/mL Troponin I 0.018 0.014 (0.000-0.034) ng/mL Coagulation 10/12/20 Range/Units 04:25 PT 9.8 (9.0-12.0) sec APTT 24.2 (22.0-30.0) sec CBC 10/12/20 Range/Units 04:25 WBC 10.9 H (3.8-10.6) k/uL RBC 5.66 (4.30-5.90) m/uL Hgb 17.0 (13.0-17.5) gm/dL Hct 52.4 (39.0-53.0) % Plt Count 211 (150-450) k/uL Comprehensive Metabolic Panel 10/12/20 Range/Units 04:25 Sodium 139 (137-145) mmol/L Potassium 4.4 (3.5-5.1) mmol/L Chloride 103 (98-107) mmol/L Carbon Dioxide 28 (22-30) mmol/L BUN 14 (9-20) mg/dL Creatinine 0.71 (0.66-1.25) mg/dL Glucose 148 H (74-99) mg/dL Calcium 9.2 (8.4-10.2) mg/dL AST 22 (17-59) U/L ALT 15 (4-49) U/L Alkaline Phosphatase 113 (38-126) U/L Total Protein 7.1 (6.3-8.2) g/dL Albumin 4.0 (3.5-5.0) g/dL Current Medications Generic Name Dose Route Start Last Admin Trade Name Freq PRN Reason Stop Dose Admin Albuterol/Ipratropium 3 ml 10/12/20 05:35 Ipratropium-Albuterol 3 Ml Neb INHALATION RT-Q4H PRN shortness of breath Aspirin 81 mg 10/13/20 09:00 Aspirin 81 Mg PO DAILY CAMPBELL Atorvastatin Calcium 40 mg 10/12/20 21:00 Atorvastatin 40 Mg Tab PO HS CAMPBELL Azithromycin 500 mg 10/13/20 09:00 Azithromycin 500 Mg Tab PO 10/17/20 09:01 DAILY CAMPBELL Diphenhydramine HCl 25 mg 10/12/20 06:02 Diphenhydramine 50 Mg/Ml 1 Ml Vial IVP Q6HR PRN Allergy Symptoms Hydromorphone HCl 1 mg 10/12/20 04:09 Hydromorphone 1 Mg/Ml 1 Ml Syringe IVP Q4HR PRN Pain Sodium Chloride 1,000 mls @ 130 mls/hr 10/12/20 04:09 10/12/20 04:26 Saline 0.9% IV 10/12/20 11:50 130 mls/hr .Q7H42M STA Administration Sodium Chloride 1,000 mls @ 100 mls/hr 10/12/20 05:45 10/12/20 06:10 Saline 0.9% IV 100 mls/hr .Q10H CAMPBELL Administration Ceftriaxone Sodium 2 gm/ 50 mls @ 100 mls/hr 10/13/20 09:00 Sodium Chloride IVPB 10/15/20 09:01 Q24HR CAMPBELL Lisinopril 20 mg 10/12/20 09:00 10/12/20 09:04 Lisinopril 20 Mg Tab PO 20 mg DAILY CAMPBELL Administration Lorazepam 1 mg 10/12/20 06:02 Lorazepam 2 Mg/Ml Inj IV Q4HR PRN Anxiety Metoprolol Tartrate 75 mg 10/12/20 09:00 10/12/20 09:03 Metoprolol Tartrate 25 Mg Tab PO 75 mg BID CAMPBELL Administration Miscellaneous Information 1 each 10/12/20 05:35 Pneumonia Protocol Utilized 1 Each Misc PO ONCE PRN Per Protocol Morphine Sulfate 4 mg 10/12/20 05:35 10/12/20 06:11 Morphine Sulfate 4 Mg/Ml Syringe IV 4 mg Q4HR PRN Administration Chest Pain Nitroglycerin 0.4 mg 10/12/20 05:35 Nitroglycerin Sl Tabs 0.4 Mg Tab SUBLINGUAL Q5M PRN Chest Pain Rivaroxaban 20 mg 10/12/20 17:30 Rivaroxaban 20 Mg Tab PO W/SUPPER CAMPBELL Intake and Output 10/11/20 10/12/20 10/12/20 22:59 06:59 14:59 Other: Weight 90.718 kg 10/12/20 04:25 10/12/20 04:25
[2020-10-12] MEDS ORDERED: KETOROLAC 15 MG/ML 1 ML VIAL IVP PRN ×2 (10:36→14:26)
[2020-10-12] MEDS ORDERED: ASPIRIN 81 MG PO PRN (10:36)
--- NOTE | 2020-10-12 12:13 | ECHOF ---
Referral Reason:cp, follow up to assess LV function MEASUREMENTS -------- HEIGHT: 170.2 cm WEIGHT: 90.7 kg BP: 148/64 RVIDd: 3.0 cm (< 3.3) IVSd: 1.6 cm (0.6 - 1.1) LVIDd: 6.1 cm (3.9 - 5.3) LVPWd: 1.4 cm (0.6 - 1.1) IVSs: 1.9 cm LVIDs: 4.5 cm LVPWs: 2.0 cm LA Diam: 3.9 cm (2.7 - 3.8) LAESV Index (A-L): 43.41 ml/m Ao Diam: 3.6 cm (2.0 - 3.7) AV Cusp: 2.2 cm (1.5 - 2.6) MV EXCURSION: 21.171 mm (> 18.000) MV EF SLOPE: 61 mm/s (70 - 150) EPSS: 1.2 cm MV E [place]: 1.10 m/s MV DecT: 309 ms MV A [place]: 0.66 m/s MV E/A Ratio: 1.67 AV maxP.24 mmHg AV meanP.22 mmHg FINDINGS -------- Sinus rhythm. This was a technically good study. The left ventricle is mildly dilated. There is moderate concentric left ventricular hypertrophy. Overall left ventricular systolic function is mildly impaired with, an EF between 45 - 50 %. The right ventricle is normal in size. LA is severely dilated >40 ml/m2 The right atrium is normal in size. Interatrial and interventricular septum intact. There is mild aortic valve sclerosis. Peak/mean gradient across the Aortic Valve is 15.24mmHg / 7.2 2mmHg. There is trace to mild mitral regurgitation. The tricuspid valve appears structurally normal. The pulmonic valve was not well visualized. The aortic root size is normal. Normal inferior vena cava with normal inspiratory collapse consistent with estimated right atrial pre ssure of 5 mmHg. There is no pericardial effusion. CONCLUSIONS -------- 1. The left ventricle is mildly dilated. 2. There is moderate concentric left ventricular hypertrophy. 3. Overall left ventricular systolic function is mildly impaired with, an EF between 45 - 50 %. 4. LA is severely dilated >40 ml/m2 5. There is mild aortic valve sclerosis. 6. Peak/mean gradient across the Aortic Valve is 15.24mmHg / 7.22mmHg. 7. There is trace to mild mitral regurgitation. 8. There is no pericardial effusion. ACTUARIAL CLERK: Katie Desir RDCS
--- NOTE | 2020-10-12 14:27 | P.HPIM ---
History of Present Illness 60-year-old the female Complains of Severe Chest Pain on the Lateral Left Lower Chest Pleuritic in Nature Has Been Going on for Last Few Days. Patient Is Admitted the for Cardiac Evaluation. Patient Was Evaluated by Cardiology They Believe Patient the Chest Pain Is Nonpleuritic No Further Evaluation Is Necessary from That Perspective Patient Had an Echocardiogram Which Showed EF of around 40 with 50%. Patient had a previous EF of around 35-40% area and grade 2 diastolic dysfunction. Patient's BNP is not elevated. Patient denied any fever chills patient had a CT angios the chest which did not show any pulmonary embolism but did show bronchial wall thickening and scattered areas of reticular and groundglass T is no obvious infiltrate consistent with a lobar pneumonia. CT of abdomen and pelvis is within normal limits. Patient admits to generalized body aches Review of Systems REVIEW OF SYSTEMS: CONSTITUTIONAL: No fever, no malaise, no fatigue. HEENT: No recent visual problems or hearing problems. Denied any sore throat. CARDIOVASCULAR: No chest pain, orthopnea, PND, no palpitations, no syncope. PULMONARY: No shortness of breath, no cough, no hemoptysis. GASTROINTESTINAL: No diarrhea, no nausea, no vomiting, no abdominal pain. NEUROLOGICAL: No headaches, no weakness, no numbness. HEMATOLOGICAL: Denies any bleeding or petechiae. GENITOURINARY: Denies any burning micturition, frequency, or urgency. MUSCULOSKELETAL/RHEUMATOLOGICAL: Denies any joint pain, swelling, or any muscle pain. ENDOCRINE: Denies any polyuria or polydipsia. The rest of the 14-point review of systems is negative. Past Medical History Past Medical History: Chest Pain / Angina, COPD, Deep Vein Thrombosis (DVT), GERD/Reflux, Hyperlipidemia, Hypertension, Myocardial Infarction ([place]), Osteoarthritis (OA) Additional Past Medical History / Comment(s): History of hepatitis A, chronic pain, gout, "kidneys shut down x2 when sick". Back pain, TIA 2009 Last Myocardial Infarction Date:: 1999 History of Any Multi-Drug Resistant Organisms: MRSA Date of last positivie culture/infection: 2016 MDRO Source:: face MRSA Past Surgical History: Bowel Resection, Heart Catheterization With Stent, Hernia Repair, Orthopedic Surgery Additional Past Surgical History / Comment(s): Shoulder surgery, hernia, cataracts, pain clinic procedures, colostomy. Past Anesthesia/Blood Transfusion Reactions: No Reported Reaction Date of Last Stent Placement:: 1999 Past Psychological History: Anxiety, Depression Smoking Status: Former smoker Past Alcohol Use History: Daily Past Drug Use History: None Reported - Past Family History Mother Family Medical History: Cancer, Myocardial Infarction ([place]) Additional Family Medical History / Comment(s): Mother had unknown type of cancer. She of a [place] at the age of 68yrs. Father Family Medical History: Myocardial Infarction ([place]) Additional Family Medical History / Comment(s): Father from his heart "exploding" at the age of 58 yrs. Sister(s) Family Medical History: Cancer Additional Family Medical History / Comment(s): Sisters x2 Medications and Allergies Home Medications Medication Instructions Recorded Confirmed Type Aspirin 81 mg PO DAILY PRN 07/20/20 10/12/20 History Ibuprofen [Motrin Ib] 200 - 800 mg PO Q8H PRN 07/20/20 10/12/20 History Atorvastatin [Lipitor] 40 mg PO HS #30 tab 07/23/20 10/12/20 Rx Digoxin [Lanoxin] 125 mcg PO DAILY #30 tab 07/23/20 10/12/20 Rx Furosemide [Lasix] 40 mg PO BID #60 tab 07/23/20 10/12/20 Rx Isosorbide Mononitrate ER [Imdur] 30 mg PO DAILY #30 tab 07/23/20 10/12/20 Rx Metoprolol Tartrate [Lopressor] 75 mg PO BID #90 tab 07/23/20 10/12/20 Rx Montelukast Sodium [Singulair] 10 mg PO HS #30 tab 07/23/20 10/12/20 Rx Rivaroxaban [Xarelto] 15 mg PO DAILY 10/12/20 10/12/20 History Allergies Allergy/AdvReac Type Severity Reaction Status Date / Time No Known Allergies Allergy Verified 10/12/20 06:41 Physical Exam Vitals: Vital Signs Temp Pulse Resp BP Pulse Ox 10/12/20 13:20 86 16 155/59 99 10/12/20 10:14 84 16 173/84 99 10/12/20 08:07 65 16 141/89 99 10/12/20 06:56 82 22 174/82 98 10/12/20 05:15 88 24 154/101 97 10/12/20 05:02 24 10/12/20 03:53 98.0 F 79 24 212/118 100 Intake and Output 10/11/20 10/12/20 10/12/20 22:59 06:59 14:59 Other: Weight 90.718 kg PHYSICAL EXAMINATION: GENERAL: The patient is alert and oriented x3, not in any acute distress. Well developed, well nourished. HEENT: Pupils are round and equally reacting to light. EOMI. No scleral icterus. No conjunctival pallor. Normocephalic, atraumatic. No pharyngeal erythema. No thyromegaly. CARDIOVASCULAR: S1 and S2 present. No murmurs, rubs, or gallops. PULMONARY: Chest is clear to auscultation, no wheezing or crackles. ABDOMEN: Soft, nontender, nondistended, normoactive bowel sounds. No palpable organomegaly. MUSCULOSKELETAL: No joint swelling or deformity. EXTREMITIES: No cyanosis, clubbing, or pedal edema. NEUROLOGICAL: Gross neurological examination did not reveal any focal deficits. SKIN: No rashes. Results CBC & Chem 7: 10/12/20 04:25 10/12/20 04:25 Labs: Abnormal Lab Results - Last 24 Hours (Table) 10/12/20 10/12/20 10/12/20 Range/Units 04:25 04:25 04:25 WBC 10.9 H (3.8-10.6) k/uL RDW 16.0 H (11.5-15.5) % D-Dimer 1.05 H (<0.60) mg/L FEU Glucose 148 H (74-99) mg/dL Phosphorus 5.1 H (2.5-4.5) mg/dL Creatine Kinase 41 L (55-170) U/L Assessment and Plan Plan: -Chest pain: Pleuritic patient appears to have pneumonia mostly consistent with viral pneumonia although.I cannot rule out atypical pneumonia patient will be continued on present antibiotics over the 19 is negative influenza PCR will be ordered patient has pleurisy. Ruled out a concurrent syndromes cardiology evaluated the patient no further intervention from cardiology perspective. Patient will be continued on Rocephin and azithromycin. Pulmonology will be consulted patient may benefit from anti-inflammatories. -Proximal atrial fibrillation patient is presently and is also patient is rate controlled at this time -Chronic congestive heart failure chronic systolic as well as diastolic dysfunction without any acute exacerbation. -Hypertension next and-dyslipidemia -COPD without any acute exacerbation -Nicotine dependence. -History of DVT and PE.
--- NOTE | 2020-10-12 16:14 | P.CNPUL ---
History of Present Illness Consult date: 10/12/20 Reason for consult: dyspnea, cough, pneumonia Chief complaint: Shortness of breath cough and left-sided pleuritic chest pain History of present illness: This is a 60-year-old female with past medical history of renal calculi, used to smoke remotely in the past, patient also has a history of deep venous thrombosis dyslipidemia hypertension hypertensive cardiovascular disease and myocardial infarction prior recent echocardiogram revealed ejection fraction of 40-50%, with some diastolic dysfunction, patient underwent computed tomography scan of the chest in emergency department, noted to have diffuse bronchial wall thickening along with areas of groundglass attenuation likely developing pneumonia, cord testing came back negative, currently patient has been placed on broad-spectrum antibiotics along with continuation of home medications with bronchodilators Review of Systems All systems: negative Past Medical History Past Medical History: Atrial Flutter, Asthma, Coronary Artery Disease (CAD), Chest Pain / Angina, Heart Failure, COPD, Deep Vein Thrombosis (DVT), GERD/Reflux, GI Bleed, Hyperlipidemia, Hypertension, Liver Disease, Myocardial Infarction ([place]), Osteoarthritis (OA), Pneumonia, Pulmonary Embolus (PE), Rheumatoid Arthritis (RA), Vascular Disorder Additional Past Medical History / Comment(s): Pleurisy, L lung PE, L leg dvt, hepatitis A, chronic cervical/back pain, gout in hands/knees/ankles, 2010 TIA, diverticulitis with microperforation/surgery, sinus problems, bilateral carpal tunnel syndrome, numbness bilateral lower legs/feet and in hands. Last Myocardial Infarction Date:: 1999 History of Any Multi-Drug Resistant Organisms: MRSA Date of last positivie culture/infection: 2015 MDRO Source:: face MRSA Past Surgical History: Bowel Resection, Heart Catheterization, Heart Catheterization With Stent, Hernia Repair, Orthopedic Surgery Additional Past Surgical History / Comment(s): Bowel resection with colostomy then reversal, EGD, colonoscopies with benign polypectomy, R inguinal hernia repair, pain clinic procedures, R shoulder rotator cuff repair, R hip/bilateral knees and bilateral ankles were "cleaned out", R hand fracture repair with pins, head injury years ago with cerebral shunt placed. Past Anesthesia/Blood Transfusion Reactions: No Reported Reaction Date of Last Stent Placement:: 1999 Smoking Status: Former smoker - Past Family History Mother Family Medical History: Cancer, Myocardial Infarction ([place]) Additional Family Medical History / Comment(s): Mother had unknown type of cancer. She of a [place] at the age of 68yrs. Father Family Medical History: Myocardial Infarction ([place]) Additional Family Medical History / Comment(s): Father from his heart "exploding" at the age of 58 yrs. Sister(s) Family Medical History: Cancer Additional Family Medical History / Comment(s): Sisters x2 Medications and Allergies Home Medications Medication Instructions Recorded Confirmed Type Aspirin 81 mg PO DAILY PRN 07/20/20 10/12/20 History Ibuprofen [Motrin Ib] 200 - 800 mg PO Q8H PRN 07/20/20 10/12/20 History Atorvastatin [Lipitor] 40 mg PO HS #30 tab 07/23/20 10/12/20 Rx Digoxin [Lanoxin] 125 mcg PO DAILY #30 tab 07/23/20 10/12/20 Rx Furosemide [Lasix] 40 mg PO BID #60 tab 07/23/20 10/12/20 Rx Isosorbide Mononitrate ER [Imdur] 30 mg PO DAILY #30 tab 07/23/20 10/12/20 Rx Metoprolol Tartrate [Lopressor] 75 mg PO BID #90 tab 07/23/20 10/12/20 Rx Montelukast Sodium [Singulair] 10 mg PO HS #30 tab 07/23/20 10/12/20 Rx Rivaroxaban [Xarelto] 15 mg PO DAILY 10/12/20 10/12/20 History Allergies Allergy/AdvReac Type Severity Reaction Status Date / Time No Known Allergies Allergy Verified 10/12/20 06:41 Physical Exam Vitals: Vital Signs Temp Pulse Resp BP Pulse Ox 10/12/20 13:20 86 16 155/59 99 10/12/20 10:14 84 16 173/84 99 10/12/20 08:07 65 16 141/89 99 10/12/20 06:56 82 22 174/82 98 10/12/20 05:15 88 24 154/101 97 10/12/20 05:02 24 10/12/20 03:53 98.0 F 79 24 212/118 100 Intake and Output 10/12/20 10/12/20 10/12/20 06:59 14:59 22:59 Other: Weight 90.718 kg 90.718 kg - Constitutional General appearance: disheveled - EENT Eyes: EOMI, PERRLA Ears: bilateral: normal - Neck Neck: normal ROM Carotids: bilateral: upstroke normal Thyroid: bilateral: normal size - Respiratory Respiratory: bilateral: diminished, wheezing - Cardiovascular Rhythm: regular Heart sounds: normal: S1, S2 - Gastrointestinal General gastrointestinal: decreased bowel sounds, normal bowel sounds, soft - Neurologic Neurologic: CNII-XII intact - Musculoskeletal Musculoskeletal: gait normal, generalized weakness, strength equal bilaterally - Psychiatric Psychiatric: A&O x's 3, appropriate affect, intact judgment & insight Results - Laboratory Findings CBC and BMP: 10/12/20 04:25 10/12/20 04:25 PT/INR, D-dimer PT 9.8 sec (9.0-12.0) 10/12/20 04:25 INR 0.9 (<1.2) 10/12/20 04:25 D-Dimer 1.05 mg/L FEU (<0.60) H 10/12/20 04:25 Abnormal lab findings: Abnormal Labs 10/12/20 10/12/20 10/12/20 04:25 04:25 04:25 WBC 10.9 H RDW 16.0 H D-Dimer 1.05 H Glucose 148 H Phosphorus 5.1 H Creatine Kinase 41 L - Diagnostic Findings Chest x-ray: report reviewed, image reviewed CT scan - chest: report reviewed, image reviewed (Finding as noted above) Assessment and Plan Assessment: Acute bilateral pneumonia COPD exacerbation Acute on chronic systolic and diastolic heart failure History of prior DVT Hypertension hypertensive cardiovascular disease Plan: Continue broad-spectrum antibiotics Try to obtain a sputum sample IV steroids Breathing treatments Further plan of care and recommendations pending as per clinical response of the patient Time with Patient: Greater than 30
[2020-10-12] MEDS ORDERED: RIVAROXABAN 20 MG TAB PO SCH (17:30)
[2020-10-12] MEDS ORDERED: MONTELUKAST 10 MG TAB PO SCH (21:00)
[2020-10-12] MEDS ORDERED: ATORVASTATIN 40 MG TAB PO SCH (21:00)
[2020-10-12] MEDS: methylPREDNISolone SOD SUCCI 40 MG/ML 1 ML VIAL IV SCH (23:13)
[2020-10-12] MEDS: FAMOTIDINE 20 MG TAB PO SCH (23:14)
[2020-10-12] MEDS: FUROSEMIDE 40 MG TAB PO SCH (23:14)
[2020-10-13] MEDS: MORPHINE SULFATE 4 MG/ML SYRINGE IV PRN ×2 (02:08→11:59)
[2020-10-13] MEDS ORDERED: hydrALAZINE HCL 20 MG/ML 1 ML VIAL IVP PRN (03:00)
[2020-10-13] MEDS: methylPREDNISolone SOD SUCCI 40 MG/ML 1 ML VIAL IV SCH (07:29)
[2020-10-13] MEDS: FAMOTIDINE 20 MG TAB PO SCH (07:30)
[2020-10-13] MEDS: METOPROLOL TARTRATE 25 MG TAB PO SCH (07:30)
[2020-10-13] MEDS: FUROSEMIDE 40 MG TAB PO SCH (07:30)
[2020-10-13] MEDS: lisinopriL 20 MG TAB PO SCH (07:30)
--- NOTE | 2020-10-13 08:30 | XR ---
EXAMINATION TYPE: XR chest 2V DATE OF EXAM: 10/13/2020 COMPARISON: 07/20/2020 TECHNIQUE: PA and lateral views submitted. HISTORY: Shortness of breath FINDINGS: Heart is enlarged and there is a coarsened interstitium. No pleural effusion or pneumothorax. No cons olidation. Arthropathy of the shoulders. IMPRESSION: 1. Cardiomegaly with coarsened interstitium correlate for interstitial venous congestion versus inter stitial pneumonitis stable from prior exam.
[2020-10-13] MEDS ORDERED: ASPIRIN 81 MG PO SCH (09:00)
[2020-10-13] MEDS ORDERED: RIVAROXABAN 15 MG TAB PO SCH (09:00)
[2020-10-13] MEDS ORDERED: AZITHROMYCIN 500 MG TAB PO SCH (09:00)
[2020-10-13] MEDS ORDERED: ISOSORBIDE MONONITRATE ER 30 MG TAB.ER.24H PO SCH (09:00)
[2020-10-13] MEDS ORDERED: DIGOXIN 125 MCG TAB PO SCH (09:00)
[2020-10-13] MEDS ORDERED: ASPIRIN 325 MG TAB PO SCH (09:00)
--- NOTE | 2020-10-13 12:45 | P.PN ---
Subjective This is a pleasant 60-year-old male past medical history significant for cardiomyopathy, chronic systolic heart failure, coronary artery disease s/p PCI mid RCA 2003, paroxysmal atrial fibrillation on xarelto, hypertension, dyslipidemia, COPD, DVT and PE in the past. He follows in the office with Dr. Queen. We have been asked to see in consultation for chest pain. He is seen and examined laying flat on the stretcher in the ER. He states he was woken up out of sleep last night with a heavy pain in his chest in the left precordial rosaline on. The pain radiated through to his back and was exacerbated by deep breathing. He has been coughing and had a headache for the last 3 days. He didn't specifically check his temperature but felt hot and then cold/clammy at times. He denies shortness of breath, dizziness or palpitations. He has been started on antibiotics for pneumonia. He had a LHC performed at [facility] 04/2020 revealing moderate area of plaque in the mid LAD and mild disease of the previously stented RCA. Medical management advised. In July 2020 he had a nuclear stress test that did not show reversibility in the LAD territory. He does verbalize that this pain he is having now is different than his angina. He was here in June of last year and underwent an echo revealing impaired LV systolic function with EF 35-40%, moderate LVH, grade II diastolic dysfunction and moderately dilated LA. This was the first time he had a cardiomyopathy. At that time he also had a PE and new onset afib. EKG reveals sinus mechanism with LVH and T-wave inversions laterally suggestive of LVH. CTA is negative for PE with evidence of diffuse bronchial wall thickening, scattered areas of reticular and ground glass opacities.CT abdomen/pelvis unremarkable. Laboratory reviewed, WBC 10.9, hgb 17, plt 211, d- dimer 1.05, sodium 139, potassium 4.4, creatinine 0.71, magnesium 2.2, troponin negative x3 and proBNP 557. 3/: Patient seen and examined at bedside, no acute distress. Patient with no new complaints. Patient states he had trouble sleeping last night in the hospital. Patient is currently being maintained on lisinopril 20 mg daily, xarelto 20 mg daily, aspirin 81 mg daily, atorvastatin 40 mg daily, digoxin 125 mcg daily, lasix 40 mg BID, imdure 30 mg daily and lopressor 75 mg daily. Repeat echocardiogram revealed improvement in patient's left ventricle systolic functi on EF 4550 % moderate LVH, mild aortic valve stenosis, severely dilated LA. PHYSICAL EXAMINATION Blood pressure 177/86 improvement in BP after antihypertensives given, HR 74 afebrile and maintaining oxygen saturation on room air. CONSTITUTIONAL: No apparent distress. HEENT: Head is normocephalic. Pupils are equal, round. Sclerae anicteric. Mucous membranes of the mouth are moist. No JVD. No carotid bruit. CHEST EXAMINATION: Expiratory wheezes throughout. No chest wall tenderness is noted on palpation or with deep breathing. HEART EXAMINATION: Regular rate and rhythm. S1, S2 heard. No murmurs, gallops or rub. ABDOMEN: Soft, nontender. Positive bowel sounds. EXTREMITIES: 2+ peripheral pulses, no lower extremity edema and no calf tenderness. NEUROLOGIC EXAMINATION: Patient is awake, alert and oriented x3. ASSESSMENT Chest pain, pleuritic Pneumonia Paroxysmal atrial fibrillation on xarelto Cardiomyopathy, likely related to afib at the time was new onset Chronic systolic and diastolic heart failure, clinically euvolemic Coronary artery disease s/p PCI RCA and subsequent LAD lesion with no evidence of reversibility Hypertension Dyslipidemia COPD Chronic nicotine dependence History of DVT and PE in the past PLAN -Chest pain is pleuritic in nature secondary to pneumonia, not cardiac in etiology. Repeat echocardiogram with improvement in LVEF 45-50%. No evidence to suggest acute heart failure, clinically euvolemic. -We will sign off at this time. Please reach out for any further concerns or questions. -Recommend follow up with Dr. Queen in the office upon discharge. Thank you kindly for this consultation. Nurse Practitioner note has been reviewed, I agree with a documented findings and plan of care. Patient was seen and examined. Objective - Vital Signs Vital signs: Vital Signs Temp 97.8 F 10/13/20 07:00 Pulse 74 10/13/20 10:40 Resp 14 10/13/20 07:00 BP 177/86 10/13/20 10:40 Pulse Ox 97 10/13/20 07:00 Intake & Output 10/12/20 10/13/20 10/13/20 18:59 06:59 18:59 Intake Total 400 Output Total 1200 Balance -800 Weight 90.718 kg Intake: Oral 400 Output: Urine 1200 Other: # Voids 2 # Bowel Movements 1 - Labs CBC & Chem 7: 10/12/20 04:25 10/12/20 04:25 Labs: Microbiology - Last 24 Hours (Table) 10/12/20 05:53 Blood Culture - Preliminary Blood No Growth after 24 hours
[2020-10-13 14:15] VITALS: BP 131/62; PULSE 83; RESP 16; TEMP 97.6
--- NOTE | 2020-10-13 15:02 | P.PN ---
Subjective Progress Note Date: 10/13/20 Principal diagnosis: Acute bilateral pneumonia COPD exacerbation Acute on chronic systolic and diastolic heart failure History of prior DVT Hypertension hypertensive cardiovascular disease 10/13/2020, patient seen eval reexamined during the rounds labs reviewed medications reviewed care plan discussed, patient remains afebrile, oxygen saturation is 95%, hemodynamically stable, primary services insist on discharging the patient, agree with discharge planning with follow-up on outpatient basis, chest x-ray earlier today continue show prominent distention with possible interstitial edema versus infiltrate, would recommend to discharge and oral steroids along with oral antibiotics This is a 60-year-old female with past medical history of renal calculi, used to smoke remotely in the past, patient also has a history of deep venous thrombosis dyslipidemia hypertension hypertensive cardiovascular disease and myocardial infarction prior recent echocardiogram revealed ejection fraction of 40-50%, with some diastolic dysfunction, patient underwent computed tomography scan of the chest in emergency department, noted to have diffuse bronchial wall thickening along with areas of groundglass attenuation likely developing pneumonia, cord testing came back negative, currently patient has been placed on broad-spectrum antibiotics along with continuation of home medications with bronchodilators Objective - Vital Signs Vital signs: Vital Signs Temp 97.6 F 10/13/20 14:05 Pulse 83 10/13/20 14:05 Resp 16 10/13/20 14:05 BP 131/62 10/13/20 14:05 Pulse Ox 95 10/13/20 14:05 Intake & Output 10/12/20 10/13/20 10/13/20 18:59 06:59 18:59 Intake Total 400 Output Total 1200 Balance -800 Weight 90.718 kg Intake: Oral 400 Output: Urine 1200 Other: # Voids 2 # Bowel Movements 1 - Exam - Constitutional General appearance: disheveled - EENT Eyes: EOMI, PERRLA Ears: bilateral: normal - Neck Neck: normal ROM Carotids: bilateral: upstroke normal Thyroid: bilateral: normal size - Respiratory Respiratory: bilateral: diminished, wheezing - Cardiovascular Rhythm: regular Heart sounds: normal: S1, S2 - Gastrointestinal General gastrointestinal: decreased bowel sounds, normal bowel sounds, soft - Neurologic Neurologic: CNII-XII intact - Musculoskeletal Musculoskeletal: gait normal, generalized weakness, strength equal bilaterally - Psychiatric Psychiatric: A&O x's 3, appropriate affect, intact judgment & insight - Labs CBC & Chem 7: 10/12/20 04:25 10/12/20 04:25 Labs: Microbiology - Last 24 Hours (Table) 10/12/20 05:53 Blood Culture - Preliminary Blood No Growth after 24 hours Assessment and Plan Assessment: Acute bilateral pneumonia COPD exacerbation Acute on chronic systolic and diastolic heart failure History of prior DVT Hypertension hypertensive cardiovascular disease Plan: Continue broad-spectrum antibiotics, can be changed to [id number] discharge Try to obtain a sputum sample IV steroids, can be changed to oral antibiotics and discharge Breathing treatments Further plan of care and recommendations pending as per clinical response of the patient Time with Patient: Greater than 30
--- NOTE | 2020-10-13 17:23 | P.DS ---
Providers Date of admission: 10/12/20 10:04 Expected date of discharge: 10/13/20 Attending physician: Savi Meraz Consults: 10/12/20 05:35 Consult Physician Urgent Consulting Provider: Genna Terry Consult Reason/Comments: cp Do you want consulting provider notified?: Yes 10/12/20 10:41 Consult Physician Routine Consulting Provider: Santhosh Montes Consult Reason/Comments: Possible pneumonia Do you want consulting provider notified?: Yes Primary care physician: Stated None Hospital Course: Final Diagnosis -Chest pain: Pleuritic patient appears to have pneumonia mostly consistent with viral pneumonia although.I cannot rule out atypical pneumonia -Ruled out acute coronary syndrome -Proximal atrial fibrillation patient is presently and is also patient is rate controlled at this time -Chronic congestive heart failure chronic systolic as well as diastolic dysfunction without any acute exacerbation. -Hypertension -dyslipidemia -COPD without any acute exacerbation -Nicotine dependence. -History of DVT and PE. Discharge disposition Patient is being discharged in a stable condition with guarded prognosis to home. Patient will follow-up with Dr. Chinchilla in the outpatient setting upon discharge. Patient is to follow up with cardiology and pulmonary and outpatient setting. Patient will continue on Zithromax and oral Ceftin for the next 4 days to complete the course. Patient will also continue with the prednisone taper. Total time taken is greater than 35 minutes. Hospital course 60-year-old the female Complains of Severe Chest Pain on the Lateral Left Lower Chest Pleuritic in Nature Has Been Going on for Last Few Days. Patient Is Admitted the for Cardiac Evaluation. Patient Was Evaluated by Cardiology They Believe Patient the Chest Pain Is Nonpleuritic No Further Evaluation Is Necessary from That Perspective Patient Had an Echocardiogram Which Showed EF of around 40 with 50%. Patient had a previous EF of around 35-40% area and grade 2 diastolic dysfunction. Patient's BNP is not elevated. Patient denied any fever chills patient had a CT angios the chest which did not show any pulmonary embolism but did show bronchial wall thickening and scattered areas of reticular and groundglass T is no obvious infiltrate consistent with a lobar pneumonia. CT of abdomen and pelvis is within normal limits. Patient admits to generalized body aches 10/13/2020 Patient was seen and evaluated in follow-up with no acute overnight issues. Patient maintained on IV and oral antibiotics and will transition to oral antibiotics along with a prednisone taper to complete the course. Patient instructed to follow-up with pulmonary and cardiology in the outpatient setting along with establishing with a primary care provider. Resources provided. Patient is requesting to go home. Currently no reports of chest pain, worsening shortness of breath, or palpitations. Patient is afebrile. No reports of nausea or vomiting and patient is tolerating diet. On exam vital signs are stable. Cardio S1, S2 are muffled. Respiratory system shows diminished breath sounds at the bases with no wheezing or rhonchi noted. Abdomen is soft and nontender. Nervous system shows no focal deficits. Please refer to medication reconciliation sheet for a list of medications. Patient Condition at Discharge: Good Plan - Discharge Summary Discharge Rx Participant: No New Discharge Prescriptions: New Cefuroxime Axetil [Ceftin] 500 mg PO BID 4 Days #8 tab Nitroglycerin Sl Tabs [Nitrostat] 0.4 mg SUBLINGUAL Q5M PRN #30 tab PRN Reason: Chest Pain Famotidine [Pepcid] 20 mg PO BID 30 Days #60 tab predniSONE 10 mg PO DIRECTED #30 tab Rivaroxaban [Xarelto] 20 mg PO W/SUPPER 30 Days #30 tab lisinopriL [Zestril] 20 mg PO DAILY 30 Days #30 tab Azithromycin [Zithromax] 500 mg PO DAILY 4 Days #4 tab Continue Ibuprofen [Motrin Ib] 200 - 800 mg PO Q8H PRN PRN Reason: Pain Aspirin 81 mg PO DAILY PRN PRN Reason: Chest Pain Furosemide [Lasix] 40 mg PO BID #60 tab Metoprolol Tartrate [Lopressor] 75 mg PO BID #90 tab Isosorbide Mononitrate ER [Imdur] 30 mg PO DAILY #30 tab Digoxin [Lanoxin] 125 mcg PO DAILY #30 tab Atorvastatin [Lipitor] 40 mg PO HS #30 tab Montelukast Sodium [Singulair] 10 mg PO HS #30 tab Discontinued Rivaroxaban [Xarelto] 15 mg PO DAILY Discharge Medication List Aspirin 81 mg PO DAILY PRN 07/20/20 [History] Ibuprofen [Motrin Ib] 200 - 800 mg PO Q8H PRN 07/20/20 [History] Atorvastatin [Lipitor] 40 mg PO HS #30 tab 07/23/20 [Rx] Digoxin [Lanoxin] 125 mcg PO DAILY #30 tab 07/23/20 [Rx] Furosemide [Lasix] 40 mg PO BID #60 tab 07/23/20 [Rx] Isosorbide Mononitrate ER [Imdur] 30 mg PO DAILY #30 tab 07/23/20 [Rx] Metoprolol Tartrate [Lopressor] 75 mg PO BID #90 tab 07/23/20 [Rx] Montelukast Sodium [Singulair] 10 mg PO HS #30 tab 07/23/20 [Rx] Azithromycin [Zithromax] 500 mg PO DAILY 4 Days #4 tab 10/13/20 [Rx] Cefuroxime Axetil [Ceftin] 500 mg PO BID 4 Days #8 tab 10/13/20 [Rx] Famotidine [Pepcid] 20 mg PO BID 30 Days #60 tab 10/13/20 [Rx] Nitroglycerin Sl Tabs [Nitrostat] 0.4 mg SUBLINGUAL Q5M PRN #30 tab 10/13/20 [Rx] Rivaroxaban [Xarelto] 20 mg PO W/SUPPER 30 Days #30 tab 10/13/20 [Rx] lisinopriL [Zestril] 20 mg PO DAILY 30 Days #30 tab 10/13/20 [Rx] predniSONE 10 mg PO DIRECTED #30 tab 10/13/20 [Rx] Follow up Appointment(s)/Referral(s): Kiesha Chinchilla MD [STAFF PHYSICIAN] - 1-2 Days Santhosh Montes MD [STAFF PHYSICIAN] - 1 Week (appointment not made for Dr Monets , office was closed .) Nathan Queen MD [STAFF PHYSICIAN] - 11/01/20 11:30 am Patient Instructions/Handouts: Pneumonitis (DC) Activity/Diet/Wound Care/Special Instructions: Activity Limited until follow-up Follow-up with primary care provider upon discharge follow up with pulmonary outpatient in one week Continue antibiotics until finished Continue Xarelto Continue prednisone taper Discharge Disposition: HOME SELF-CARE
[2020-10-13 23:28] LABS: Chol/HDL Ratio 3.51; LDL Cholesterol,Calculated 69.6 mg/dL (0.0-131.0); VLDL Calculation 33.4 mg/dL (5.00-40.00)
== END 2020-10-13 14:46 | disposition home or self-care (01) | DRG 194 ==
LOC: EC 03:45 → 6NMEDSUR 05:37 → OBSVTOIN 10:04 → 6NMEDSUR 16:32
PROVIDERS: ADMIT Hospitalist; ATTEND Hospitalist
DX: J12.9 Viral pneumonia, unspecified (principal); J44.0 Chronic obstructive pulmonary disease with (acute) lower respiratory infection; I50.42 Chronic combined systolic (congestive) and diastolic (congestive) heart failure; I42.9 Cardiomyopathy, unspecified; I11.0 Hypertensive heart disease with heart failure; E78.5 Hyperlipidemia, unspecified; F17.210 Nicotine dependence, cigarettes, uncomplicated; F32.9 Major depressive disorder, single episode, unspecified; F41.9 Anxiety disorder, unspecified; I25.119 Atherosclerotic heart disease of native coronary artery with unspecified angina pectoris; I25.2 Old myocardial infarction; I48.0 Paroxysmal atrial fibrillation; M06.9 Rheumatoid arthritis, unspecified; Z79.01 Long term (current) use of anticoagulants; Z79.82 Long term (current) use of aspirin; Z79.899 Other long term (current) drug therapy; Z82.49 Family history of ischemic heart disease and other diseases of the circulatory system; Z86.711 Personal history of pulmonary embolism; Z86.718 Personal history of other venous thrombosis and embolism; Z20.822 Contact with and (suspected) exposure to COVID-19; Z86.73 Personal history of transient ischemic attack (TIA), and cerebral infarction without residual deficits; G89.29 Other chronic pain; M54.2 Cervicalgia; Z87.442 Personal history of urinary calculi; Z87.828 Personal history of other (healed) physical injury and trauma; Z98.61 Coronary angioplasty status; Z86.010 Personal history of colon polyps; Z87.01 Personal history of pneumonia (recurrent); Z96.643 Presence of artificial hip joint, bilateral; Z96.653 Presence of artificial knee joint, bilateral; M19.90 Unspecified osteoarthritis, unspecified site; Z90.49 Acquired absence of other specified parts of digestive tract; K76.9 Liver disease, unspecified; Z87.19 Personal history of other diseases of the digestive system; Z98.49 Cataract extraction status, unspecified eye; Z80.9 Family history of malignant neoplasm, unspecified; M10.9 Gout, unspecified; M54.9 Dorsalgia, unspecified
CPT/HCPCS: 36415; 71046; 71275; 74177; 80053; 80061; 82550; 82553; 83605; 83735; 83880; 84100; 84484; 85025; 85379; 85610; 85730; 87040; 87502; 87635; 93005; 93306; 96361; 96365; 96367; 96375; 96376; 99285

== ENCOUNTER 2021-05-18 08:02 | Emergency (ER) | payer MEDICARE ==
[2021-05-18 08:08] VITALS: RESP 18
[2021-05-18 08:09] VITALS: TEMP 97.7
[2021-05-18] MEDS ORDERED: HYDROmorphone 1 MG/ML 1 ML SYRINGE IVP STA ×2 (08:13→08:36)
[2021-05-18] MEDS ORDERED: SODIUM CHLORIDE 0.9% 1,000 ML IV STA (08:15)
[2021-05-18 08:31] LABS: Basophils # (A) 0.1 k/uL (0-0.2); Basophils % (A) 1 %; Eosinophils # (A) 0.4 k/uL (0-0.7); Eosinophils % (A) 3 %; HCT 47.1 % (39.0-53.0); HGB 15.9 gm/dL (13.0-17.5); Lymphocytes # (A) 2.7 k/uL (1.0-4.8); Lymphocytes % (A) 22 %; MCH 32.1 pg (25.0-35.0); MCHC 33.8 g/dL (31.0-37.0); MCV 94.9 fL (80.0-100.0); Mean Platelet Volume 9.3; Monocytes # (A) 0.4 k/uL (0-1.0); Monocytes % (A) 4 %; Neutrophils # (A) 8.7 k/uL (1.3-7.7); Neutrophils % (A) 70 %; Platelet Count 203 k/uL (150-450); RBC 4.96 m/uL (4.30-5.90); WBC 12.3 k/uL (3.8-10.6)
--- NOTE | 2021-05-18 08:33 | ED ---
General Adult HPI - General Chief complaint: Urogenital Stated complaint: Male Time Seen by Provider: 05/18/21 08:06 Source: patient, EMS, RN notes reviewed Mode of arrival: EMS Limitations: no limitations - History of Present Illness Initial comments: Patient is a pleasant 60year-old male presenting to the emergency Department with complaints of right inguinal pain. Onset of symptoms was a couple weeks ago however became very severe sometime around midnight. Discomfort remained severe at this time. Patient arrived by EMS. EMS did provide that no however patient states discomfort is still severe. Patient does have history of previous hernia surgery. Patient also has history of previous colon resection secondary to diverticulitis. Patient does have some recent hematuria. No fever. No vomiting. No swelling. - Related Data Home Medications Medication Instructions Recorded Confirmed Aspirin 81 mg PO DAILY PRN 07/20/20 10/12/20 Ibuprofen [Motrin Ib] 200 - 800 mg PO Q8H PRN 07/20/20 10/12/20 Previous Rx's Medication Instructions Recorded Atorvastatin [Lipitor] 40 mg PO HS #30 tab 07/23/20 Digoxin [Lanoxin] 125 mcg PO DAILY #30 tab 07/23/20 Furosemide [Lasix] 40 mg PO BID #60 tab 07/23/20 Isosorbide Mononitrate ER [Imdur] 30 mg PO DAILY #30 tab 07/23/20 Metoprolol Tartrate [Lopressor] 75 mg PO BID #90 tab 07/23/20 Montelukast Sodium [Singulair] 10 mg PO HS #30 tab 07/23/20 Azithromycin [Zithromax] 500 mg PO DAILY 4 Days #4 tab 10/13/20 Cefuroxime Axetil [Ceftin] 500 mg PO BID 4 Days #8 tab 10/13/20 Famotidine [Pepcid] 20 mg PO BID 30 Days #60 tab 10/13/20 Nitroglycerin Sl Tabs [Nitrostat] 0.4 mg SUBLINGUAL Q5M PRN #30 tab 10/13/20 Rivaroxaban [Xarelto] 20 mg PO W/SUPPER 30 Days #30 tab 10/13/20 lisinopriL [Zestril] 20 mg PO DAILY 30 Days #30 tab 10/13/20 predniSONE 10 mg PO DIRECTED #30 tab 10/13/20 Allergies Allergy/AdvReac Type Severity Reaction Status Date / Time No Known Allergies Allergy Verified 05/18/21 08:08 Review of Systems ROS Statement: Those systems with pertinent positive or pertinent negative responses have been documented in the HPI. ROS Other: All systems not noted in ROS Statement are negative. Constitutional: Denies: fever Eyes: Denies: eye pain ENT: Denies: ear pain Respiratory: Denies: cough Cardiovascular: Denies: chest pain Endocrine: Denies: fatigue Gastrointestinal: Reports: as per HPI Genitourinary: Reports: as per HPI Musculoskeletal: Denies: back pain Skin: Denies: rash Neurological: Denies: weakness Past Medical History Past Medical History: Chest Pain / Angina, COPD, Deep Vein Thrombosis (DVT), GERD/Reflux, Hyperlipidemia, Hypertension, Myocardial Infarction ([place]), Osteoarthritis (OA) Additional Past Medical History / Comment(s): History of hepatitis A, chronic pain, gout, "kidneys shut down x2 when sick". Back pain, TIA 2009 Last Myocardial Infarction Date:: 1999 History of Any Multi-Drug Resistant Organisms: MRSA Date of last positivie culture/infection: 2015 MDRO Source:: face MRSA Past Surgical History: Bowel Resection, Heart Catheterization With Stent, Hernia Repair, Orthopedic Surgery Additional Past Surgical History / Comment(s): Shoulder surgery, hernia, libby racts, pain clinic procedures, colostomy. Past Anesthesia/Blood Transfusion Reactions: No Reported Reaction Date of Last Stent Placement:: 1999 Past Psychological History: Anxiety, Depression Smoking Status: Former smoker Past Alcohol Use History: Daily Past Drug Use History: None Reported - Past Family History Mother Family Medical History: Cancer, Myocardial Infarction ([place]) Additional Family Medical History / Comment(s): Mother had unknown type of cancer. She of a [place] at the age of 68yrs. Father Family Medical History: Myocardial Infarction ([place]) Additional Family Medical History / Comment(s): Father from his heart "exploding" at the age of 58 yrs. Sister(s) Family Medical History: Cancer Additional Family Medical History / Comment(s): Sisters x2 General Exam Limitations: no limitations General appearance: alert, other (Patient does appear uncomfortable) Head exam: Present: normocephalic Eye exam: Present: normal appearance Neck exam: Present: normal inspection Respiratory exam: Present: normal lung sounds bilaterally Cardiovascular Exam: Present: regular rate, normal rhythm GI/Abdominal exam: Present: soft, other (Mild right inguinal tenderness). Absent: distended, tenderness, hernia exam: Present: testicular tenderness (Right-sided), other (No erythema or swelling.). Absent: scrotal swelling Back exam: Present: normal inspection Neurological exam: Present: alert Psychiatric exam: Present: anxious Skin exam: Present: normal color Course Vital Signs 05/18/21 05/18/21 08:04 08:09 Temperature 97.7 F Pulse Rate 67 Respiratory 18 Rate Blood Pressure 174/102 O2 Sat by Pulse 98 Oximetry - Reevaluation(s) Reevaluation #1: 05/18/21 08:23 Ultrasound was called for stat ultrasound Medical Decision Making - Medical Decision Making Patient reevaluated and pain is under control. Patient is updated on results. Case was discussed with Dr. Snell who would like the patient to follow-up in the next day or 2 in the office. Patient is updated and agreeable. - Lab Data Result diagrams: 05/18/21 08:20 05/18/21 08:20 Lab Results 05/18/21 05/18/21 05/18/21 Range/Units 08:20 08:20 08:20 WBC 12.3 H (3.8-10.6) k/uL RBC 4.96 (4.30-5.90) m/uL Hgb 15.9 (13.0-17.5) gm/dL Hct 47.1 (39.0-53.0) % MCV 94.9 (80.0-100.0) fL MCH 32.1 (25.0-35.0) pg MCHC 33.8 (31.0-37.0) g/dL RDW 13.0 (11.5-15.5) % Plt Count 203 (150-450) k/uL MPV 9.3 Neutrophils % 70 % Lymphocytes % 22 % Monocytes % 4 % Eosinophils % 3 % Basophils % 1 % Neutrophils # 8.7 H (1.3-7.7) k/uL Lymphocytes # 2.7 (1.0-4.8) k/uL Monocytes # 0.4 (0-1.0) k/uL Eosinophils # 0.4 (0-0.7) k/uL Basophils # 0.1 (0-0.2) k/uL PT 10.0 (9.0-12.0) sec INR 0.9 (<1.2) APTT 24.4 (22.0-30.0) sec Sodium 138 (137-145) mmol/L Potassium 3.5 (3.5-5.1) mmol/L Chloride 107 (98-107) mmol/L Carbon Dioxide 23 (22-30) mmol/L Anion Gap 8 mmol/L BUN 12 (9-20) mg/dL Creatinine 0.61 L (0.66-1.25) mg/dL Est GFR (CKD-EPI)AfAm >90 (>60 ml/min/1.73 sqM) Est GFR (CKD-EPI)NonAf >90 (>60 ml/min/1.73 sqM) Glucose 123 H (74-99) mg/dL Calcium 9.0 (8.4-10.2) mg/dL Total Bilirubin 0.5 (0.2-1.3) mg/dL AST 23 (17-59) U/L ALT 13 (4-49) U/L Alkaline Phosphatase 103 (38-126) U/L Total Protein 6.4 (6.3-8.2) g/dL Albumin 3.4 L (3.5-5.0) g/dL Amylase 45 (30-110) U/L Lipase 49 (23-300) U/L Urine Color Urine Appearance (Clear) Urine pH (5.0-8.0) Ur Specific [place] (1.001-1.035) Urine Protein (Negative) Urine Glucose (UA) (Negative) Urine Ketones (Negative) Urine Blood (Negative) Urine Nitrite (Negative) Urine Bilirubin (Negative) Urine Urobilinogen (<2.0) mg/dL Ur Leukocyte Esterase (Negative) 05/18/21 Range/Units 09:34 WBC (3.8-10.6) k/uL RBC (4.30-5.90) m/uL Hgb (13.0-17.5) gm/dL Hct (39.0-53.0) % MCV (80.0-100.0) fL MCH (25.0-35.0) pg MCHC (31.0-37.0) g/dL RDW (11.5-15.5) % Plt Count (150-450) k/uL MPV Neutrophils % % Lymphocytes % % Monocytes % % Eosinophils % % Basophils % % Neutrophils # (1.3-7.7) k/uL Lymphocytes # (1.0-4.8) k/uL Monocytes # (0-1.0) k/uL Eosinophils # (0-0.7) k/uL Basophils # (0-0.2) k/uL PT (9.0-12.0) sec INR (<1.2) APTT (22.0-30.0) sec Sodium (137-145) mmol/L Potassium (3.5-5.1) mmol/L Chloride (98-107) mmol/L Carbon Dioxide (22-30) mmol/L Anion Gap mmol/L BUN (9-20) mg/dL Creatinine (0.66-1.25) mg/dL Est GFR (CKD-EPI)AfAm (>60 ml/min/1.73 sqM) Est GFR (CKD-EPI)NonAf (>60 ml/min/1.73 sqM) Glucose (74-99) mg/dL Calcium (8.4-10.2) mg/dL Total Bilirubin (0.2-1.3) mg/dL AST (17-59) U/L ALT (4-49) U/L Alkaline Phosphatase (38-126) U/L Total Protein (6.3-8.2) g/dL Albumin (3.5-5.0) g/dL Amylase (30-110) U/L Lipase (23-300) U/L Urine Color Yellow Urine Appearance Clear (Clear) Urine pH 6.5 (5.0-8.0) Ur Specific [place] 1.011 (1.001-1.035) Urine Protein Negative (Negative) Urine Glucose (UA) Negative (Negative) Urine Ketones Negative (Negative) Urine Blood Negative (Negative) Urine Nitrite Negative (Negative) Urine Bilirubin Negative (Negative) Urine Urobilinogen <2.0 (<2.0) mg/dL Ur Leukocyte Esterase Negative (Negative) - Radiology Data Radiology results: report reviewed (Computed tomography scan abdomen pelvis shows small fat-containing left inguinal hernia. Small scrotal hydrocele. Fat- containing supraumbilical hernia. Cholesterol gallstone. Scrotal ultrasound shows 3 testicular masses. No evidence of torsion. Bilateral hydrocele.), image reviewed (KUB shows possible ileus or enteritis.) Disposition Clinical Impression: Testicular mass Disposition: HOME SELF-CARE Condition: Stable Instructions (If sedation given, give patient instructions): Testicle Pain (ED) Additional Instructions: Please follow-up with urology tomorrow, number provided. Please also follow-up with primary care physician. You will need further evaluation of the testicle to evaluate for mass. Return for uncontrolled pain, fever or vomiting, worsening symptoms or other concerns. Is patient prescribed a controlled substance at d/c from ED?: No Referrals: Adam Bassett MD [Primary Care Provider] - 1-2 days Philip Meléndez MD [STAFF PHYSICIAN] - 1-2 days Time of Disposition: 12:10
[2021-05-18 08:43] LABS: ALT 13 U/L (4-49); AST 23 U/L (17-59); African American GFR (CKD) >90 (>60 ml/min/1.73 sqM); Albumin 3.4 g/dL (3.5-5.0); Alkaline Phosphatase 103 U/L (38-126); Amylase 45 U/L (30-110); Anion Gap 8 mmol/L; Blood Urea Nitrogen 12 mg/dL (9-20); Carbon Dioxide 23 mmol/L (22-30); Chloride 107 mmol/L (98-107); Glucose 123 mg/dL (74-99); Lipase 49 U/L (23-300); Non-African American GFR(CKD) >90 (>60 ml/min/1.73 sqM); Potassium 3.5 mmol/L (3.5-5.1); Sodium 138 mmol/L (137-145); Total Bilirubin 0.5 mg/dL (0.2-1.3); Total Protein 6.4 g/dL (6.3-8.2)
[2021-05-18 08:45] LABS: INR 0.9 (<1.2); Partial Thromboplastin Time 24.4 sec (22.0-30.0)
--- NOTE | 2021-05-18 08:54 | XR ---
EXAMINATION TYPE: XR KUB DATE OF EXAM: 05/18/2021 Comparison: 03/12/2019 Clinical History: 60-year-old male abdominal pain Findings: Lung bases are clear. No evidence for free intraperitoneal air. Small air-fluid levels in the mid abdomen. No dilated small bowel are seen. Scattered colonic air and stool with a mild to moderate stool burden. No suspicious calcifications are seen. Impression: Mid abdominal air-fluid levels suggesting an ileus or enteritis. The lack of small bowel dilatation a nd the presence of colonic air argues against bowel obstruction at this time. No free air. Mild to mo derate stool burden.
--- NOTE | 2021-05-18 09:16 | US ---
EXAMINATION TYPE: US scrotum with doppler. DATE OF EXAM: 05/18/2021 COMPARISON: NONE CLINICAL HISTORY: 60-year-old male with right sided pain for years but increasingly worse. TECHNIQUE: Grayscale and color Doppler Duplex imaging performed of the scrotum. FINDINGS: EXAM MEASUREMENTS: TESTICLES: Right Testicle: 4.7x3.3x2.8 cm Left Testicle: 3.2x2.5x2.4 cm Multiple complex masses seen in the right testicle SUP- 0.5x0.4x0.5cm MID-1.8x2.5x1.0cm- Mostly solid MID/INF-1.1x1.4x1.3cm Left scrotal cristina 0.6x04x0.4cm Doppler performed to assess for testicular vascularity; good bilateral color flow and waveforms are s een. There is no evidence of testicular torsion. EPIDIDYMIS HEAD: Right Epididymis: 0.7 cm Left Epididymis: 0.7 cm Presence of hydroceles: Small bilaterally. Presence of varicoceles: no IMPRESSION: 1. There are 3 intratesticular masses on the right ranging in size from 2.5 cm to 5 mm. Primary testi cular tumor, lymphoma, and granulomatous infections are differential considerations. Recommend urolog y referral. 2. No sonographic evidence for testicular torsion. 3. Small bilateral hydroceles.
[2021-05-18 09:51] LABS: Appearance,Urine Clear (Clear); Bilirubin,Urine Negative (Negative); Blood,Urine Negative (Negative); Color,Urine Yellow; Glucose,Urine (UA) Negative (Negative); Ketones,Urine Negative (Negative); Leukocyte Esterase,Urine Negative (Negative); Nitrite,Urine Negative (Negative); PH, Urine 6.5 (5.0-8.0); Protein,Urine Negative (Negative); Specific Gravity,Urine 1.011 (1.001-1.035); Urobilinogen,Urine <2.0 mg/dL (<2.0)
--- NOTE | 2021-05-18 10:51 | CT ---
EXAMINATION TYPE: CT abdomen pelvis w con DATE OF EXAM: 05/18/2021 COMPARISON: 10/12/2020 HISTORY: Rt inguinal pain CT DLP: 1262.9 mGycm CONTRAST: CT scan of the abdomen and pelvis is performed without Oral Contrast and with IV Contrast, patient in jected with 100 mL of Isovue 300. FINDINGS: LUNG BASES-: No visible nodule. No infiltrate. LIVER/GB: Cholesterol gallstone noted. No wall thickening seen. No space occupying hepatic lesion. Biliary tree is of normal caliber. PANCREAS: No inflammation. No distinct mass. SPLEEN: No splenic enlargement. No lesion seen. ADRENALS: No nodule. No thickening. KIDNEYS/BLADDER: No hydronephrosis. No nephrolithiasis. No distinct renal mass. Urinary bladder g rossly unremarkable. BOWEL: Normal appendix. Normal bowel caliber. No inflammation. GENITAL ORGANS: Small scrotal hydrocele noted. Prostate gland is unremarkable. LYMPH NODES: No greater than 1cm abdominal or pelvic lymph nodes are appreciated. AORTA: No significant abnormality. OSSEOUS STRUCTURES: No significant abnormality is seen. OTHER: Fat-containing supraumbilical hernia. Small fat-containing left inguinal hernia. IMPRESSION: 1. Small fat-containing left inguinal hernia. 2. Small scrotal hydrocele. 3. Fat-containing supraumbilical hernia. 4. Cholesterol gallstone.
[2021-05-18] MEDS ORDERED: ACET/COD 300 MG/30 MG STARTER PACK 6 TAB BTL PO STA (12:10)
[2021-05-18 12:28] VITALS: BP 133/88; PULSE 70
== END 2021-05-18 12:27 | disposition home or self-care (01) ==
LOC: EC 08:02
DX: N50.89 Other specified disorders of the male genital organs (principal); J44.9 Chronic obstructive pulmonary disease, unspecified; K21.9 Gastro-esophageal reflux disease without esophagitis; E78.5 Hyperlipidemia, unspecified; I10 Essential (primary) hypertension; I25.2 Old myocardial infarction; M19.90 Unspecified osteoarthritis, unspecified site; F41.9 Anxiety disorder, unspecified; F32.9 Major depressive disorder, single episode, unspecified; Z86.718 Personal history of other venous thrombosis and embolism; Z79.82 Long term (current) use of aspirin; Z86.73 Personal history of transient ischemic attack (TIA), and cerebral infarction without residual deficits; Z87.891 Personal history of nicotine dependence
CPT/HCPCS: 99284; 96374; 96361 ×3; 36415; 80053; 82150; 83690; 85025; 85610; 85730; 81003; 74018; 93975; 76870; 74177; J1170; Q9967

== ENCOUNTER → 2021-05-24 | Outpatient (CLI) | payer MEDICARE ==
--- NOTE | 2021-05-24 15:01 | XR ---
EXAMINATION TYPE: XR chest 2V DATE OF EXAM: 05/24/2021 COMPARISON: Chest x-ray 10/13/[address] chest 10/12/2020 HISTORY: I42.9 TECHNIQUE: Frontal and lateral views of the chest are obtained. FINDINGS: There is no focal air space opacity, pleural effusion, or pneumothorax seen. The cardiac silhouette size is stable, borderline enlarged. The osseous structures are stable, question prior p ostoperative change or trauma to the distal right clavicle. Interstitium is prominent. There is under lying emphysema. IMPRESSION: Stable cardiomegaly. Interstitial lung disease and emphysema.
== END | disposition home or self-care (01) ==
LOC: RADXRMAIN 13:45
PROVIDERS: ATTEND Nurse Practitioner
DX: J43.9 Emphysema, unspecified (principal); I51.7 Cardiomegaly
CPT/HCPCS: 71046

== ENCOUNTER 2021-07-21 08:28 | Emergency (ER) | payer MEDICARE ==
[2021-07-21 08:35] VITALS: TEMP 98.3
--- NOTE | 2021-07-21 09:09 | ED ---
General Adult HPI - General Chief complaint: Urogenital Stated complaint: SOB, pain Time Seen by Provider: 07/21/21 08:30 Source: patient, RN notes reviewed, old records reviewed Mode of arrival: ambulatory Limitations: no limitations - History of Present Illness Initial comments: This is a 61-year-old male who presents emergency Department complaining of right inguinal pain. Patient had surgery on his testicle 4 weeks ago. Patient states he had some mastitis testicle that turned out to be noncancerous however he doesn't know if they actually took the testicle or not. Patient states the swelling has been there for at least 3 weeks and the pain is excruciating. Patient states he has seen his urologist multiple times since then. Patient states she can't stand the pain anymore. Patient denies any difficulty urinating. Patient denies any abdominal pain. Patient denies any fever chills or cough. - Related Data Home Medications Medication Instructions Recorded Confirmed Albuterol Sulfate [Ventolin HFA] 1 - 2 puff INHALATION RT-Q6H PRN 07/21/21 07/21/21 Cephalexin [Keflex] 500 mg PO TID 07/21/21 07/21/21 Fluticasone/Umeclidin/Vilanter 1 puff INHALATION RT-DAILY 07/21/21 07/21/21 [Trelegy Ellipta 100-62.5-25] Previous Rx's Medication Instructions Recorded Atorvastatin [Lipitor] 40 mg PO HS #30 tab 07/23/20 Digoxin [Lanoxin] 125 mcg PO DAILY #30 tab 07/23/20 Furosemide [Lasix] 40 mg PO BID #60 tab 07/23/20 Isosorbide Mononitrate ER [Imdur] 30 mg PO DAILY #30 tab 07/23/20 Metoprolol Tartrate [Lopressor] 75 mg PO BID #90 tab 07/23/20 Nitroglycerin Sl Tabs [Nitrostat] 0.4 mg SUBLINGUAL Q5M PRN #30 tab 10/13/20 lisinopriL [Zestril] 20 mg PO DAILY 30 Days #30 tab 10/13/20 Allergies Allergy/AdvReac Type Severity Reaction Status Date / Time No Known Allergies Allergy Verified 07/21/21 09:12 Review of Systems ROS Statement: Those systems with pertinent positive or pertinent negative responses have been documented in the HPI. ROS Other: All systems not noted in ROS Statement are negative. Past Medical History Past Medical History: Chest Pain / Angina, COPD, Deep Vein Thrombosis (DVT), GERD/Reflux, Hyperlipidemia, Hypertension, Myocardial Infarction ([place]), Osteoarthritis (OA) Additional Past Medical History / Comment(s): History of hepatitis A, chronic pain, gout, "kidneys shut down x2 when sick". Back pain, TIA 2009 Last Myocardial Infarction Date:: 1999 History of Any Multi-Drug Resistant Organisms: MRSA Date of last positivie culture/infection: 2015 MDRO Source:: face MRSA Past Surgical History: Bowel Resection, Heart Catheterization With Stent, Hernia Repair, Orthopedic Surgery Additional Past Surgical History / Comment(s): Shoulder surgery, hernia, cataracts, pain clinic procedures, colostomy. right testicle removed. Past Anesthesia/Blood Transfusion Reactions: No Reported Reaction Date of Last Stent Placement:: 1999 Past Psychological History: Anxiety, Depression Smoking Status: Former smoker Past Alcohol Use History: Daily Past Drug Use History: None Reported - Past Family History Mother Family Medical History: Cancer, Myocardial Infarction ([place]) Additional Family Medical History / Comment(s): Mother had unknown type of cancer. She of a [place] at the age of 68yrs. Father Family Medical History: Myocardial Infarction ([place]) Additional Family Medical History / Comment(s): Father from his heart "ex ploding" at the age of 58 yrs. Sister(s) Family Medical History: Cancer Additional Family Medical History / Comment(s): Sisters x2 General Exam - General Exam Comments Initial Comments: GENERAL: Patient is well-developed and well-nourished. Patient is nontoxic and well-hydrated and is in moderate distress. ENT: Neck is soft and supple. No significant lymphadenopathy is noted. Oropharynx is clear. Moist mucous membranes. Neck has full range of motion without eliciting any pain. EYES: The sclera were anicteric and conjunctiva were pink and moist. Extraocular movements were intact and pupils were equal round and reactive to light. Eyelids were unremarkable. PULMONARY: Unlabored respirations. Good breath sounds bilaterally. No audible rales rhonchi or wheezing was noted. CARDIOVASCULAR: There is a regular rate and rhythm without any murmurs gallops or rubs. ABDOMEN: Soft and nontender with normal bowel sounds. GENITALIA: On examination of the scrotum is nonpainful there is no swelling however there is only one testicle noted to be in scrotum. Right inguinal area is very tender and swollen. Patient indicates it is been swollen and tender for 3 weeks SKIN: Skin is clear with no lesions or rashes and otherwise unremarkable. NEUROLOGIC: Patient is alert and oriented x3. Cranial nerves II through XII are grossly intact. Motor and sensory are also intact. Normal speech, volume and content. Symmetrical smile. MUSCULOSKELETAL: Normal extremities with adequate strength and full range of motion. LYMPHATICS: No significant lymphadenopathy is noted PSYCHIATRIC: Normal psychiatric evaluation. Limitations: no limitations Course Vital Signs 07/21/21 07/21/21 08:30 11:43 Temperature 98.3 F Pulse Rate 80 62 Respiratory 18 18 Rate Blood Pressure 198/103 153/55 O2 Sat by Pulse 98 98 Oximetry Medical Decision Making - Medical Decision Making I did an ultrasound and a CAT scan of the patient's pelvis appears that the swollen area is seroma. I will back into the room the patient has been sleeping throughout his whole course in emergency part. When I woke him up until the results look like a fluid collection as the urologists is told him many times in the past he was fine and in no distress. I spoke with urology they agreed that he can follow-up as an outpatient. - Lab Data Result diagrams: 07/21/21 09:25 07/21/21 11:22 Lab Results 07/21/21 07/21/21 07/21/21 Range/Units 09:25 10:20 11:22 WBC 12.5 H (3.8-10.6) k/uL RBC 4.61 (4.30-5.90) m/uL Hgb 15.0 (13.0-17.5) gm/dL Hct 44.6 (39.0-53.0) % MCV 96.9 (80.0-100.0) fL MCH 32.6 (25.0-35.0) pg MCHC 33.7 (31.0-37.0) g/dL RDW 13.5 (11.5-15.5) % Plt Count 215 (150-450) k/uL MPV 9.4 Neutrophils % 64 % Lymphocytes % 23 % Monocytes % 5 % Eosinophils % 6 % Basophils % 0 % Neutrophils # 8.1 H (1.3-7.7) k/uL Lymphocytes # 2.9 (1.0-4.8) k/uL Monocytes # 0.7 (0-1.0) k/uL Eosinophils # 0.8 H (0-0.7) k/uL Basophils # 0.1 (0-0.2) k/uL Sodium 138 (137-145) mmol/L Potassium 4.2 (3.5-5.1) mmol/L Chloride 110 H (98-107) mmol/L Carbon Dioxide 25 (22-30) mmol/L Anion Gap 3 mmol/L BUN 20 (9-20) mg/dL Creatinine 0.77 (0.66-1.25) mg/dL Est GFR (CKD-EPI)AfAm >90 (>60 ml/min/1.73 sqM) Est GFR (CKD-EPI)NonAf >90 (>60 ml/min/1.73 sqM) Glucose 115 H (74-99) mg/dL Calcium 8.4 (8.4-10.2) mg/dL Total Bilirubin 0.4 (0.2-1.3) mg/dL AST 32 (17-59) U/L ALT 20 (4-49) U/L Alkaline Phosphatase 112 (38-126) U/L Total Protein 6.0 L (6.3-8.2) g/dL Albumin 2.9 L (3.5-5.0) g/dL Urine Color Yellow Urine Appearance Clear (Clear) Urine pH 5.5 (5.0-8.0) Ur Specific [place] 1.013 (1.001-1.035) Urine Protein Negative (Negative) Urine Glucose (UA) Negative (Negative) Urine Ketones Negative (Negative) Urine Blood Negative (Negative) Urine Nitrite Negative (Negative) Urine Bilirubin Negative (Negative) Urine Urobilinogen <2.0 (<2.0) mg/dL Ur Leukocyte Esterase Negative (Negative) Urine Opiates Screen Not Detected (NotDetected) Ur Oxycodone Screen Not Detected (NotDetected) Urine Methadone Screen Not Detected (NotDetected) Ur Propoxyphene Screen Not Detected (NotDetected) Ur Barbiturates Screen Not Detected (NotDetected) U Tricyclic Antidepress Not Detected (NotDetected) Ur Phencyclidine Scrn Not Detected (NotDetected) Ur Amphetamines Screen Detected H (NotDetected) U Methamphetamines Scrn Detected H (NotDetected) U Benzodiazepines Scrn Not Detected (NotDetected) Urine Cocaine Screen Not Detected (NotDetected) U Marijuana (THC) Screen Detected H (NotDetected) Disposition Clinical Impression: Seroma after procedure, Methamphetamine abuse Disposition: HOME SELF-CARE Instructions (If sedation given, give patient instructions): Seroma (DC), Methamphetamine Abuse (ED) Is patient prescribed a controlled substance at d/c from ED?: No Referrals: Adam Bassett MD [Primary Care Provider] - 1-2 days Time of Disposition: 13:28
[2021-07-21] MEDS: KETOROLAC 15 MG/ML 1 ML VIAL IVP STA (09:23)
[2021-07-21] MEDS: HYDROmorphone 0.5 MG/0.5 ML SYRINGE IVP STA (09:24)
[2021-07-21 09:37] LABS: Basophils # (A) 0.1 k/uL (0-0.2); Basophils % (A) 0 %; Eosinophils # (A) 0.8 k/uL (0-0.7); Eosinophils % (A) 6 %; HCT 44.6 % (39.0-53.0); Lymphocytes # (A) 2.9 k/uL (1.0-4.8); Lymphocytes % (A) 23 %; MCH 32.6 pg (25.0-35.0); MCHC 33.7 g/dL (31.0-37.0); MCV 96.9 fL (80.0-100.0); Mean Platelet Volume 9.4; Monocytes # (A) 0.7 k/uL (0-1.0); Monocytes % (A) 5 %; Neutrophils # (A) 8.1 k/uL (1.3-7.7); Neutrophils % (A) 64 %; Platelet Count 215 k/uL (150-450); RBC 4.61 m/uL (4.30-5.90); RDW 13.5 % (11.5-15.5); WBC 12.5 k/uL (3.8-10.6)
--- NOTE | 2021-07-21 10:05 | US ---
EXAMINATION TYPE: US scrotum with doppler. Grayscale and color Doppler Duplex imaging performed of dawit navarrete scrotum. DATE OF EXAM: 07/21/2021 COMPARISON: NONE CLINICAL HISTORY: Right inguinal groin pain. Right groin pain, swelling and redness EXAM MEASUREMENTS: TESTICLES: Right Testicle: Surgically absent Left Testicle: 3.6 x 2.8 x 1.9 cm EPIDIDYMIS HEAD: Right Epididymis: Surgically absent cm Left Epididymis: 1.2 x 1.7 x 1.4 cm Doppler performed to assess for testicular vascularity; Left color flow and waveforms are seen. Viviane pect there is may be some scrotal swelling Presence of hydroceles: Small amount of fluid seen Presence of varicoceles: no Right Groin area of prior incision and pain, Hypoechoic irregular mass seen measuring 3.9 x 3.6 x 3. 1 cm IMPRESSION: Patient is status post right orchiectomy. Abnormal appearance in the right groin may be p ostoperative, difficult to exclude local phlegmon or abscess. Consider urological/surgical consult
[2021-07-21 10:45] LABS: Appearance,Urine Clear (Clear); Bilirubin,Urine Negative (Negative); Blood,Urine Negative (Negative); Color,Urine Yellow; Glucose,Urine (UA) Negative (Negative); Ketones,Urine Negative (Negative); Leukocyte Esterase,Urine Negative (Negative); Nitrite,Urine Negative (Negative); PH, Urine 5.5 (5.0-8.0); Protein,Urine Negative (Negative); Specific Gravity,Urine 1.013 (1.001-1.035); Urobilinogen,Urine <2.0 mg/dL (<2.0)
[2021-07-21 11:13] LABS: Amphetamine Screen,Urine Detected (NotDetected); Barbiturate Screen,Urine Not Detected (NotDetected); Benzodiazepines Screen,Urine Not Detected (NotDetected); Cocaine Screen,Urine Not Detected (NotDetected); Methadone Screen, Urine Not Detected (NotDetected); Opiate Screen,Urine Not Detected (NotDetected); Oxycodone Screen, Urine Not Detected (NotDetected); Phencyclidine Screen,Urine Not Detected (NotDetected); Tricyclic Antidepressant,Urine Not Detected (NotDetected); Urn Cannabinoid Scrn Detected (NotDetected)
[2021-07-21 12:10] LABS: ALT 20 U/L (4-49); AST 32 U/L (17-59); African American GFR (CKD) >90 (>60 ml/min/1.73 sqM); Albumin 2.9 g/dL (3.5-5.0); Alkaline Phosphatase 112 U/L (38-126); Anion Gap 3 mmol/L; Blood Urea Nitrogen 20 mg/dL (9-20); Calcium 8.4 mg/dL (8.4-10.2); Carbon Dioxide 25 mmol/L (22-30); Chloride 110 mmol/L (98-107); Glucose 115 mg/dL (74-99); Non-African American GFR(CKD) >90 (>60 ml/min/1.73 sqM); Potassium 4.2 mmol/L (3.5-5.1); Sodium 138 mmol/L (137-145); Total Bilirubin 0.4 mg/dL (0.2-1.3)
--- NOTE | 2021-07-21 12:54 | CT ---
EXAMINATION TYPE: CT pelvis w con DATE OF EXAM: 07/21/2021 COMPARISON: Scrotal ultrasound earlier today HISTORY: Right inguinal pain, history of right testicle removed x1 month ago. CT DLP: 983.3 mGycm Automated exposure control for dose reduction was used. CONTRAST: Performed with IV Contrast, patient injected with 100ml mL of Isovue 300. FINDINGS: Corresponding to ultrasound abnormality there is lobulated thin-walled fluid collection that is nonsi mple or not completely anechoic on ultrasound at site of surgery right groin measuring approximately 4.4 x 3.4 cm axial image 52 x 3.8 cm coronal image 40. This is nonspecific favoring post procedure se harjit as is along the scar tissue. Differential would include hematoma and developing abscess however. Some adjacent prominent groin lymph nodes including the 1.7 x 1.1 cm lymph node on axial image 53. Tiny fat-containing left inguinal hernia. No suspicious bowel dilatation. Moderate calcified plaque o f the aorta extends into branch vessels. Osseous structures are intact. IMPRESSION: As above.
[2021-07-21 14:03] VITALS: BP 162/80; PULSE 66; RESP 16
== END 2021-07-21 14:03 | disposition home or self-care (01) ==
LOC: EC 08:28
DX: N99.842 Postprocedural seroma of a genitourinary system organ or structure following a genitourinary system procedure (principal); F15.10 Other stimulant abuse, uncomplicated; I10 Essential (primary) hypertension; I25.2 Old myocardial infarction; J44.9 Chronic obstructive pulmonary disease, unspecified; K21.9 Gastro-esophageal reflux disease without esophagitis; E78.5 Hyperlipidemia, unspecified; M19.90 Unspecified osteoarthritis, unspecified site; F32.A Depression, unspecified; F41.9 Anxiety disorder, unspecified; Z79.51 Long term (current) use of inhaled steroids; Z79.899 Other long term (current) drug therapy; Z87.891 Personal history of nicotine dependence; Z86.718 Personal history of other venous thrombosis and embolism
CPT/HCPCS: 36415; 80053; 85025; 81003; 80306; 93975; 76870; 72193; 99284; 96374; 96375; J1885; J1170; Q9967

== ENCOUNTER 2021-12-11 10:42 | Observation (INO) | payer MEDICARE ==
[2021-12-11] MEDS ORDERED: NITROGLYCERIN OINT 1 INCH/GM PACKET TOPICAL STA (11:08)
[2021-12-11] MEDS ORDERED: ASPIRIN 81 MG PO STA (11:08)
[2021-12-11] MEDS ORDERED: LORazepam 2 MG/ML INJ IV STA (11:08)
--- NOTE | 2021-12-11 11:11 | ED ---
General Adult HPI - General Chief complaint: Chest Pain Stated complaint: Chest pain Time Seen by Provider: 12/11/21 10:45 Source: patient, EMS, RN notes reviewed, old records reviewed Mode of arrival: EMS - History of Present Illness Initial comments: This is a 61-year-old male who presents to the emergency department via EMS for chest pain or shortness of breath. According to EMS family stated he was having some slurred speech and the last time I saw him normal yesterday. Patient is not currently having any slurred speech nor does he complain of having any other numbness or weakness. Patient states she's here for chest pain or shortness of breath and he is extremely upset and tearful throughout his conversation because he is very stressed because some people are harassing him. Patient denies any palpitations patient denies any fever chills or cough per patient denies lightheadedness or dizziness. Patient denies abdominal pain patient denies nausea vomiting diarrhea. Patient states she's had chronic leg pain and is not any pain medications because people thought he was refusing them so he stopped them. Patient is a smoker. Patient also admits to buying Valium off the street. Patient has a past medical history significant for stent placement. Patient also has high blood pressure and high cholesterol. Patient continues to smoke. - Related Data Home Medications Medication Instructions Recorded Confirmed Albuterol Sulfate [Ventolin HFA] 1 - 2 puff INHALATION RT-Q6H PRN 07/21/21 07/21/21 Cephalexin [Keflex] 500 mg PO TID 07/21/21 07/21/21 Fluticasone/Umeclidin/Vilanter 1 puff INHALATION RT-DAILY 07/21/21 07/21/21 [Trelegy Ellipta 100-62.5-25] Previous Rx's Medication Instructions Recorded Atorvastatin [Lipitor] 40 mg PO HS #30 tab 07/23/20 Digoxin [Lanoxin] 125 mcg PO DAILY #30 tab 07/23/20 Furosemide [Lasix] 40 mg PO BID #60 tab 07/23/20 Isosorbide Mononitrate ER [Imdur] 30 mg PO DAILY #30 tab 07/23/20 Metoprolol Tartrate [Lopressor] 75 mg PO BID #90 tab 07/23/20 Nitroglycerin Sl Tabs [Nitrostat] 0.4 mg SUBLINGUAL Q5M PRN #30 tab 10/13/20 lisinopriL [Zestril] 20 mg PO DAILY 30 Days #30 tab 10/13/20 Allergies Allergy/AdvReac Type Severity Reaction Status Date / Time No Known Allergies Allergy Verified 07/21/21 09:12 Review of Systems ROS Statement: Those systems with pertinent positive or pertinent negative responses have been documented in the HPI. ROS Other: All systems not noted in ROS Statement are negative. Past Medical History Past Medical History: Chest Pain / Angina, COPD, Deep Vein Thrombosis (DVT), GERD/Reflux, Hyperlipidemia, Hypertension, Myocardial Infarction ([place]), Osteoarthritis ([place]) Additional Past Medical History / Comment(s): History of hepatitis A, chronic pain, gout, "kidneys shut down x2 when sick". Back pain, TIA 2009 Last Myocardial Infarction Date:: 1999 History of Any Multi-Drug Resistant Organisms: MRSA Date of last positivie culture/infection: 2015 MDRO Source:: face MRSA Past Surgical History: Bowel Resection, Heart Catheterization With Stent, Hernia Repair, Orthopedic Surgery Additional Past Surgical History / Comment(s): Shoulder surgery, hernia, cataracts, pain clinic procedures, colostomy. right testicle removed. Past Anesthesia/Blood Transfusion Reactions: No Reported Reaction Date of Last Stent Placement:: 1999 Past Psychological History: Anxiety, Depression Smoking Status: Former smoker Past Alcohol Use History: Daily Past Drug Use History: None Reported - Past Family History Mother Family Medical History: Cancer, Myocardial Infarction ([place]) Additional Family Medical History / Comment(s): Mother had unknown type of cancer. She of a [place] at the age of 68yrs. Father Family Medical History: Myocardial Infarction ([place]) Additional Family Medical History / Comment(s): Father from his heart "exploding" at the age of 58 yrs. Sister(s) Family Medical History: Cancer Additional Family Medical History / Comment(s): Sisters x2 General Exam - General Exam Comments Initial Comments: GENERAL: Patient is well-developed and well-nourished. Patient is nontoxic and well- hydrated and is in mild distress. Patient is very tearful throughout the interview he states secondary to the fact that there are some people messing with him daily at his house ENT: Neck is soft and supple. No significant lymphadenopathy is noted. Oropharynx is clear. Moist mucous membranes. Neck has full range of motion without eliciting any pain. EYES: The sclera were anicteric and conjunctiva were pink and moist. Extraocular movements were intact and pupils were equal round and reactive to light. Eyelids were unremarkable. PULMONARY: Unlabored respirations. Good breath sounds bilaterally. No audible rales rhonchi or wheezing was noted. CARDIOVASCULAR: There is a regular rate and rhythm without any murmurs gallops or rubs. ABDOMEN: Soft and nontender with normal bowel sounds. SKIN: Skin is clear with no lesions or rashes and otherwise unremarkable. NEUROLOGIC: Patient is alert and oriented x3. Cranial nerves II through XII are grossly intact. Motor and sensory are also intact. Normal speech, volume and content. Symmetrical smile. MUSCULOSKELETAL: Normal extremities with adequate strength and full range of motion. LYMPHATICS: No significant lymphadenopathy is noted PSYCHIATRIC: Normal psychiatric evaluation. Course Vital Signs 12/11/21 12/11/21 10:43 11:39 Temperature 98.1 F Pulse Rate 65 64 Respiratory 18 18 Rate Blood Pressure 197/107 194/108 O2 Sat by Pulse 100 98 Oximetry Medical Decision Making - Medical Decision Making EKG shows sinus rhythm at 62 bpm LA interval 282 QRS is 121 QT is 420 QTC is 424[address] No ST segment elevation or depression Chest x-ray shows no acute abnormality. I will back into the room to reevaluate the patient he stated he was feeling better from a chest standpoint but he was so exhausted he could barely move he really needed to agitate him to follow commands and when he did that he had no apparent neurologic deficit. I spoke with sounds physician's agreed to admit the patient admitted the patient wrote admitting orders - Lab Data Result diagrams: 12/11/21 11:12 12/11/21 11:12 Lab Results 12/11/21 12/11/21 12/11/21 Range/Units 11:12 11:12 11:12 WBC 11.6 H (3.8-10.6) k/uL RBC 4.69 (4.30-5.90) m/uL Hgb 15.2 (13.0-17.5) gm/dL Hct 46.0 (39.0-53.0) % MCV 98.1 (80.0-100.0) fL MCH 32.4 (25.0-35.0) pg MCHC 33.0 (31.0-37.0) g/dL RDW 13.1 (11.5-15.5) % Plt Count 177 (150-450) k/uL MPV 9.5 Neutrophils % 68 % Lymphocytes % 24 % Monocytes % 4 % Eosinophils % 3 % Basophils % 1 % Neutrophils # 8.0 H (1.3-7.7) k/uL Lymphocytes # 2.7 (1.0-4.8) k/uL Monocytes # 0.5 (0-1.0) k/uL Eosinophils # 0.3 (0-0.7) k/uL Basophils # 0.1 (0-0.2) k/uL PT 10.2 (9.0-12.0) sec INR 0.9 (<1.2) APTT 25.9 (22.0-30.0) sec Sodium 137 (137-145) mmol/L Potassium 3.8 (3.5-5.1) mmol/L Chloride 104 (98-107) mmol/L Carbon Dioxide 28 (22-30) mmol/L Anion Gap 5 mmol/L BUN 14 (9-20) mg/dL Creatinine 0.83 (0.66-1.25) mg/dL Est GFR (CKD-EPI)AfAm >90 (>60 ml/min/1.73 sqM) Est GFR (CKD-EPI)NonAf >90 (>60 ml/min/1.73 sqM) Glucose 104 H (74-99) mg/dL Calcium 8.8 (8.4-10.2) mg/dL Magnesium 1.9 (1.6-2.3) mg/dL Total Bilirubin 0.5 (0.2-1.3) mg/dL AST 28 (17-59) U/L ALT 16 (4-49) U/L Alkaline Phosphatase 111 (38-126) U/L Troponin I (0.000-0.034) ng/mL Total Protein 6.8 (6.3-8.2) g/dL Albumin 3.8 (3.5-5.0) g/dL 12/11/21 Range/Units 11:12 WBC (3.8-10.6) k/uL RBC (4.30-5.90) m/uL Hgb (13.0-17.5) gm/dL Hct (39.0-53.0) % MCV (80.0-100.0) fL MCH (25.0-35.0) pg MCHC (31.0-37.0) g/dL RDW (11.5-15.5) % Plt Count (150-450) k/uL MPV Neutrophils % % Lymphocytes % % Monocytes % % Eosinophils % % Basophils % % Neutrophils # (1.3-7.7) k/uL Lymphocytes # (1.0-4.8) k/uL Monocytes # (0-1.0) k/uL Eosinophils # (0-0.7) k/uL Basophils # (0-0.2) k/uL PT (9.0-12.0) sec INR (<1.2) APTT (22.0-30.0) sec Sodium (137-145) mmol/L Potassium (3.5-5.1) mmol/L Chloride (98-107) mmol/L Carbon Dioxide (22-30) mmol/L Anion Gap mmol/L BUN (9-20) mg/dL Creatinine (0.66-1.25) mg/dL Est GFR (CKD-EPI)AfAm (>60 ml/min/1.73 sqM) Est GFR (CKD-EPI)NonAf (>60 ml/min/1.73 sqM) Glucose (74-99) mg/dL Calcium (8.4-10.2) mg/dL Magnesium (1.6-2.3) mg/dL Total Bilirubin (0.2-1.3) mg/dL AST (17-59) U/L ALT (4-49) U/L Alkaline Phosphatase (38-126) U/L Troponin I <0.012 (0.000-0.034) ng/mL Total Protein (6.3-8.2) g/dL Albumin (3.5-5.0) g/dL Disposition Clinical Impression: Chest pain Disposition: ADMITTED IP TO THIS [facility] Referrals: None,Stated [Primary Care Provider] - 1-2 days Time of Disposition: 12:56
[2021-12-11 11:33] LABS: Basophils # (A) 0.1 k/uL (0-0.2); Basophils % (A) 1 %; Eosinophils # (A) 0.3 k/uL (0-0.7); Eosinophils % (A) 3 %; HGB 15.2 gm/dL (13.0-17.5); Lymphocytes # (A) 2.7 k/uL (1.0-4.8); Lymphocytes % (A) 24 %; MCH 32.4 pg (25.0-35.0); MCV 98.1 fL (80.0-100.0); Mean Platelet Volume 9.5; Monocytes # (A) 0.5 k/uL (0-1.0); Monocytes % (A) 4 %; Neutrophils % (A) 68 %; Platelet Count 177 k/uL (150-450); RBC 4.69 m/uL (4.30-5.90); RDW 13.1 % (11.5-15.5); WBC 11.6 k/uL (3.8-10.6)
--- NOTE | 2021-12-11 11:36 | XR ---
EXAMINATION TYPE: XR chest 2V DATE OF EXAM: 12/11/2021 COMPARISON: Chest x-ray May 24, 2021. The chest October 12, 2020 HISTORY: Chest pain. TECHNIQUE: Frontal and lateral views of the chest are obtained. FINDINGS: There is mild cardiomegaly. Underlying emphysematous change redemonstrated. No pleural eff usion or pneumothorax seen bilaterally. No suspicious focal consolidation. Degenerative spurring in t he spine. IMPRESSION: Mild cardiomegaly and mild underlying emphysematous change without acute pulmonary proce ss. No significant change from most recent prior x-ray.
[2021-12-11 11:48] LABS: ALT 16 U/L (4-49); African American GFR (CKD) >90 (>60 ml/min/1.73 sqM); Albumin 3.8 g/dL (3.5-5.0); Anion Gap 5 mmol/L; Blood Urea Nitrogen 14 mg/dL (9-20); Calcium 8.8 mg/dL (8.4-10.2); Carbon Dioxide 28 mmol/L (22-30); Chloride 104 mmol/L (98-107); Glucose 104 mg/dL (74-99); Non-African American GFR(CKD) >90 (>60 ml/min/1.73 sqM); Sodium 137 mmol/L (137-145); Total Bilirubin 0.5 mg/dL (0.2-1.3); Total Protein 6.8 g/dL (6.3-8.2)
[2021-12-11 11:49] LABS: INR 0.9 (<1.2); Partial Thromboplastin Time 25.9 sec (22.0-30.0); Prothrombin Time 10.2 sec (9.0-12.0)
[2021-12-11 11:51] LABS: AST 28 U/L (17-59); Alkaline Phosphatase 111 U/L (38-126); Magnesium 1.9 mg/dL (1.6-2.3); Potassium 3.8 mmol/L (3.5-5.1)
[2021-12-11] MEDS ORDERED: NITROGLYCERIN SL TABS 0.4 MG TAB SUBLINGUAL PRN (12:56)
--- NOTE | 2021-12-11 13:57 | P.HPIM ---
History of Present Illness Chief Complaint: Chest pain? Patient is a 61-year-old male with a past medical history significant for tobacco dependence, polysubstance abuse with Valium?, Essential hypertension, hyperlipidemia and coronary disease status post 5-01/05 as per patient the presents a hospital complaining of chest pain to the emergency department however on my examination not complaining of anything. Patient is a poor historian and not able to get too much information from him. He kind of waxes and wanes. States that he did take some Valium a few days ago was not able to quantify amount or date. Patient is being admitted to internal medicine for possible chest pain. Vital signs are reviewed pulse 52, normal tensive 153/82, saturating 99% on room air. CBC reviewed leukocytosis 11.6, BP reviewed unremarkable including cardiac troponin negative 1. EKG reviewed. Chest x-ray stable. Past Medical History Past Medical History: Chest Pain / Angina, COPD, Deep Vein Thrombosis (DVT), GERD/Reflux, Hyperlipidemia, Hypertension, Myocardial Infarction ([place]), Osteoarthritis ([place]) Additional Past Medical History / Comment(s): History of hepatitis A, chronic pain, gout, "kidneys shut down x2 when sick". Back pain, TIA 2009 Last Myocardial Infarction Date:: 1999 History of Any Multi-Drug Resistant Organisms: MRSA Date of last positivie culture/infection: 2015 MDRO Source:: face MRSA Past Surgical History: Bowel Resection, Heart Catheterization With Stent, Hernia Repair, Orthopedic Surgery Additional Past Surgical History / Comment(s): Shoulder surgery, hernia, cataracts, pain clinic procedures, colostomy. right testicle removed. Past Anesthesia/Blood Transfusion Reactions: No Reported Reaction Date of Last Stent Placement:: 1999 Past Psychological History: Anxiety, Depression Smoking Status: Former smoker Past Alcohol Use History: Daily Past Drug Use History: None Reported - Past Family History Mother Family Medical History: Cancer, Myocardial Infarction ([place]) Additional Family Medical History / Comment(s): Mother had unknown type of cancer. She of a [place] at the age of 68yrs. Father Family Medical History: Myocardial Infarction ([place]) Additional Family Medical History / Comment(s): Father from his heart "exploding" at the age of 58 yrs. Sister(s) Family Medical History: Cancer Additional Family Medical History / Comment(s): Sisters x2 Medications and Allergies Home Medications Medication Instructions Recorded Confirmed Type Atorvastatin [Lipitor] 40 mg PO HS #30 tab 07/23/20 07/21/21 Rx Digoxin [Lanoxin] 125 mcg PO DAILY #30 tab 07/23/20 07/21/21 Rx Furosemide [Lasix] 40 mg PO BID #60 tab 07/23/20 07/21/21 Rx Isosorbide Mononitrate ER [Imdur] 30 mg PO DAILY #30 tab 07/23/20 07/21/21 Rx Metoprolol Tartrate [Lopressor] 75 mg PO BID #90 tab 07/23/20 07/21/21 Rx Nitroglycerin Sl Tabs [Nitrostat] 0.4 mg SUBLINGUAL Q5M PRN #30 tab 10/13/20 07/21/21 Rx lisinopriL [Zestril] 20 mg PO DAILY 30 Days #30 tab 10/13/20 07/21/21 Rx Albuterol Sulfate [Ventolin HFA] 1 - 2 puff INHALATION RT-Q6H PRN 07/21/21 07/21/21 History Cephalexin [Keflex] 500 mg PO TID 07/21/21 07/21/21 History Fluticasone/Umeclidin/Vilanter 1 puff INHALATION RT-DAILY 07/21/21 07/21/21 History [Meli Ellipta 100-62.5-25] Allergies Allergy/AdvReac Type Severity Reaction Status Date / Time No Known Allergies Allergy Verified 07/21/21 09:12 Physical Exam Vitals: Vital Signs Temp Pulse Resp BP Pulse Ox 12/11/21 13:24 52 L 18 153/82 99 12/11/21 11:39 64 18 194/108 98 12/11/21 10:43 98.1 F 65 18 197/107 100 Intake and Output 12/10/21 12/11/21 12/11/21 22:59 06:59 14:59 Other: Weight 95.254 kg Gen. patient is awake alert oriented 2 however very lethargic Cardio normal S1/S2 Respiratory bilateral rhonchi no wheezing or crackles appreciated Abdomen soft, nontender Neuro unable to complete a full neuro examination is a patient waxes and wanes. He seems a little altered at times. Extremity no pitting edema noted Results CBC & Chem 7: 12/11/21 11:12 05/16/22 11:12 Labs: Abnormal Lab Results - Last 24 Hours (Table) 12/11/21 12/11/21 Range/Units 11:12 11:12 WBC 11.6 H (3.8-10.6) k/uL Neutrophils # 8.0 H (1.3-7.7) k/uL Glucose 104 H (74-99) mg/dL Assessment and Plan Assessment: Assessment: #1 altered mental status possibly secondary to polysubstance abuse with Valium? #2 chest pain rule out ACS versus muscle skeletal #3 essential hypertension #4 hyperlipidemia Plan: -Admit to medicine for close monitoring -Aspiration/fall precaution -Cardiac troponin negative 1 -Obtain 2-D echocardiogram -Risk stratify patient with lipid panel, hemoglobin A1c -Cardiology consult from the emergency department -DVT prophylaxis Lovenox
[2021-12-11] MEDS: NITROGLYCERIN OINT 1 INCH/GM PACKET TOPICAL SCH ×2 (18:58→23:51)
[2021-12-12] MEDS: NITROGLYCERIN OINT 1 INCH/GM PACKET TOPICAL SCH (05:11)
[2021-12-12] MEDS ORDERED: ALPRAZolam 0.25 MG TAB PO PRN (08:04)
[2021-12-12] MEDS ORDERED: ATORVASTATIN 80 MG TAB PO STA (08:04)
[2021-12-12] MEDS: METOPROLOL TARTRATE 50 MG TAB PO SCH ×2 (08:37→21:18)
[2021-12-12] MEDS: lisinopriL 20 MG TAB PO SCH (08:37)
[2021-12-12] MEDS: SODIUM CHLORIDE 0.9% 1,000 ML in EMPTY BAG 1 BAG IV SCH ×2 (08:40→20:23)
[2021-12-12] MEDS ORDERED: lisinopriL 20 MG TAB PO SCH (09:00)
[2021-12-12] MEDS ORDERED: ASPIRIN 325 MG TAB PO SCH (09:00)
--- NOTE | 2021-12-12 09:07 | P.CRDCN ---
History of Present Illness History of present illness: HISTORY OF PRESENTING ILLNESS This is a pleasant 61-year-old male past medical history significant for ischemic cardiomyopathy, chronic heart failure with reduced EF, coronary artery disease s/p PCI mid RCA 2003, paroxysmal atrial fibrillation was on Xarelto however stopped taking medication, hypertension, dyslipidemia, COPD, DVT and PE in the past. He follows in the office with Dr. Queen. We have been asked to see in consultation for chest pain. Yesterday patient is an episode of chest pain while getting dressed. It is located midsternal, radiating to the left side of his chest, left arm and jaw/neck. He describes it as a chest pressure. It lasted for about 10 minutes. He had associated diaphoresis and shortness of breath. He took 81 mg of aspirin and nitroglycerin which helped relieve his pain. He continued to have chest pain intermittently overnight. Currently his chest pain has resolved. He denies any palpitations, nausea, vomiting, syncope or near-syncope. He quit smoking cigarettes in 2018. He currently smokes cigars. On admission he was hypotensive with blood pressure 190s/100s. BP has improved 166/77. Chest pain has resolved this morning. She recently followed up with Dr. Queen in the office 08/2021, his lisinopril was increased to 40 mg daily his metoprolol was increased to 100 mg twice a day and his digoxin was discontinued. He was recommended patient undergo an echocardiogram and stress test but this was not completed yet. DIAGNOSTICS EKG reveals Sinus rhythm HR 62, LVH, non-specific ST-T wave abnormalities T wave inversions in V4-V6, poor R wave progression. Prior EKG in 09/[address]-T wave abnormalities Echo 09/2020 revealed an EF of 4550%, LA severely dilated, mild aortic valve sclerosis, peak/mean gradient 15 mmHg/70 mmHg. He had a LHC performed at [facility] 04/2020 revealing moderate area of plaque in the mid LAD and mild disease of the previously stented RCA.Medical management advised. In July 2020 he had a nuclear stress test that did not show reversibility in the LAD territory. Laboratory reviewed, WBC 1.6, hemoglobin 15.2, platelets 177, troponin negative, sodium 137, potassium 3.8, BUN 14, serum creatinine 0.8 Current home cardiac medications include aspirin 80 mg daily, atorvastatin 40 mg nightly, Lasix 40 mg twice a day, Imdur 30 mg daily, metoprolol titrate 100 mg twice a day, lisinopril 20 mg daily REVIEW OF SYSTEMS At the time of my exam: CONSTITUTIONAL: Denies fever or chills. CARDIOVASCULAR: Complains of chest pain. Denies shortness of breath, orthopnea, PND or palpitations. RESPIRATORY: Denies cough. GASTROINTESTINAL: Denies abdominal pain, diarrhea, constipation, nausea or vomiting. MUSCULOSKELETAL: Denies myalgias. NEUROLOGIC: Denies numbness, tingling, headacbe or weakness. ENDOCRINE: Denies fatigue, weight change, polydipsia or polyurina. GENITOURINARY: Denies burning, hematuria or urgency with micturation. HEMATOLOGIC: Denies history of anemia or bleeding. PHYSICAL EXAMINATION Blood pressure 166/77, heart rate 63, afebrile, saturations 97% on room air CONSTITUTIONAL: No apparent distress. HEENT: Head is normocephalic. Pupils are equal, round. Sclerae anicteric. Mucous membranes of the mouth are moist. No JVD. No carotid bruit. CHEST EXAMINATION: Expiratory wheezes throughout. No chest wall tenderness is noted on palpation or with deep breathing. HEART EXAMINATION: Regular rate and rhythm. S1, S2 heard. No murmurs, gallops or rub. ABDOMEN: Soft, nontender. Positive bowel sounds. EXTREMITIES: Decreased femoral pulses 1+ bilaterally, no lower extremity edema and no calf tenderness. NEUROLOGIC EXAMINATION: Patient is awake, alert and oriented x3. ASSESSMENT Unstable angina Hypertension Paroxysmal atrial fibrillation, was previously on Xarelto patient states he is unsure why he is not currently taking it, possibly secondary to cost issues Ischemic cardiomyopathy Chronic heart failure with reduced ejection fraction, clinically euvolemic Coronary artery disease s/p PCI RCA and subsequent LAD lesion Dyslipidemia COPD Chronic nicotine dependence History of DVT and PE in the past PLAN We recommend cardiac catheterization at this time, patient is agreeable. I have discussed the risks, benefits and alternative therapies for the above- mentioned procedure and for both sedation/analgesia as well as necessary blood product administration, if indicated, as they pertain to this patient. The patient has indicated understanding and acceptance of the risks and procedures discussed. Questions have been answered appropriately and he is agreeable to move forward with the above-stated procedure. Plan for left heart catheterization with Dr. Queen today. Obtain 2D echocardiogram We will consult case management for Xarelto coverage. Continue aspirin, statin, beta frank and lisinopril Further recommendations based on clinical course Nurse Practitioner note has been reviewed, I agree with a documented findings and plan of care. Patient was seen and examined. Past Medical History Past Medical History: Chest Pain / Angina, COPD, Deep Vein Thrombosis (DVT), GERD/Reflux, Hyperlipidemia, Hypertension, Myocardial Infarction ([place]), Osteoarthritis ([place]) Additional Past Medical History / Comment(s): History of hepatitis A, chronic pain, gout, "kidneys shut down x2 when sick". Back pain, TIA 2009 Last Myocardial Infarction Date:: 1999 History of Any Multi-Drug Resistant Organisms: MRSA Date of last positivie culture/infection: 2015 MDRO Source:: face MRSA Past Surgical History: Bowel Resection, Heart Catheterization With Stent, Hernia Repair, Orthopedic Surgery Additional Past Surgical History / Comment(s): Shoulder surgery, hernia, cataracts, pain clinic procedures, colostomy. right testicle removed. Past Anesthesia/Blood Transfusion Reactions: No Reported Reaction Date of Last Stent Placement:: 1999 Past Psychological History: Anxiety, Depression Smoking Status: Former smoker Past Alcohol Use History: Daily Past Drug Use History: None Reported - Past Family History Mother Family Medical History: Cancer, Myocardial Infarction ([place]) Additional Family Medical History / Comment(s): Mother had unknown type of cancer. She of a [place] at the age of 68yrs. Father Family Medical History: Myocardial Infarction ([place]) Additional Family Medical History / Comment(s): Father from his heart "exploding" at the age of 58 yrs. Sister(s) Family Medical History: Cancer Additional Family Medical History / Comment(s): Sisters x2 Medications and Allergies Home Medications Medication Instructions Recorded Confirmed Type Atorvastatin [Lipitor] 40 mg PO HS #30 tab 07/23/20 12/11/21 Rx Furosemide [Lasix] 40 mg PO BID #60 tab 07/23/20 12/11/21 Rx Isosorbide Mononitrate ER [Imdur] 30 mg PO DAILY #30 tab 07/23/20 12/11/21 Rx lisinopriL [Zestril] 20 mg PO DAILY 30 Days #30 tab 10/13/20 12/11/21 Rx Albuterol Sulfate [Ventolin HFA] 1 - 2 puff INHALATION RT-Q6H PRN 12/24/21 05/16/22 History Fluticasone/Umeclidin/Vilanter 1 puff INHALATION RT-DAILY 07/21/21 12/11/21 History [Trelegy Ellipta 100-62.5-25] Metoprolol Tartrate [Lopressor] 100 mg PO BID 12/11/21 12/11/21 History Nitroglycerin Sl Tabs [Nitrostat] 0.4 mg SL Q5M PRN 12/11/21 12/11/21 History Sertraline [Zoloft] 50 mg PO DAILY 12/11/21 12/11/21 History Rivaroxaban [Xarelto] 20 mg PO DAILY 30 Days #30 tab 12/12/21 Rx Allergies Allergy/AdvReac Type Severity Reaction Status Date / Time No Known Allergies Allergy Verified 12/11/21 14:31 Physical Exam Vitals: Vital Signs Temp Pulse Resp BP Pulse Ox 12/11/21 13:24 52 L 18 153/82 99 12/11/21 11:39 64 18 194/108 98 12/11/21 10:43 98.1 F 65 18 197/107 100 Intake and Output 12/10/21 12/11/21 12/11/21 22:59 06:59 14:59 Other: Weight 95.254 kg Results 12/11/21 11:12 12/11/21 11:12 Cardiac Enzymes 12/11/21 12/11/21 Range/Units 11:12 11:12 AST 28 (17-59) U/L Troponin I <0.012 (0.000-0.034) ng/mL Coagulation 12/11/21 Range/Units 11:12 PT 10.2 (9.0-12.0) sec APTT 25.9 (22.0-30.0) sec CBC 12/11/21 Range/Units 11:12 WBC 11.6 H (3.8-10.6) k/uL RBC 4.69 (4.30-5.90) m/uL Hgb 15.2 (13.0-17.5) gm/dL Hct 46.0 (39.0-53.0) % Plt Count 177 (150-450) k/uL Comprehensive Metabolic Panel 12/11/21 Range/Units 11:12 Sodium 137 (137-145) mmol/L Potassium 3.8 (3.5-5.1) mmol/L Chloride 104 (98-107) mmol/L Carbon Dioxide 28 (22-30) mmol/L BUN 14 (9-20) mg/dL Creatinine 0.83 (0.66-1.25) mg/dL Glucose 104 H (74-99) mg/dL Calcium 8.8 (8.4-10.2) mg/dL AST 28 (17-59) U/L ALT 16 (4-49) U/L Alkaline Phosphatase 111 (38-126) U/L Total Protein 6.8 (6.3-8.2) g/dL Albumin 3.8 (3.5-5.0) g/dL Current Medications Generic Name Dose Route Start Last Admin Trade Name Freq PRN Reason Stop Dose Admin Aspirin 325 mg 12/12/21 09:00 Aspirin 325 Mg Tab PO DAILY C[facility]BELL Nitroglycerin 0.4 mg 12/11/21 12:56 Nitroglycerin Sl Tabs 0.4 Mg Tab SUBLINGUAL Q5M PRN Chest Pain Nitroglycerin 1 inch 12/11/21 18:00 Nitroglycerin Oint 1 Inch/Gm Packet TOPICAL Q6HR CAMPBELL Intake and Output 12/10/21 12/11/21 12/11/21 22:59 06:59 14:59 Other: Weight 95.254 kg Patient Weight 12/12/21 06:59 Weight 95.254 kg 12/11/21 11:12 12/11/21 11:12
[2021-12-12] MEDS ORDERED: VERAPAMIL 2.5 MG/ML 2 ML AMP ONE (09:14)
[2021-12-12] MEDS ORDERED: fentaNYL (PF) 50 MCG/ML 2 ML AMP ONE (09:14)
[2021-12-12] MEDS ORDERED: MIDAZOLAM 2 MG/2 ML VIAL IV ONE (09:32)
[2021-12-12] MEDS: fentaNYL (PF) 50 MCG/ML 2 ML AMP IV ONE ×2 (09:32→09:53)
[2021-12-12] MEDS ORDERED: IV FLUID CONTINUATION 800 ML IV ONE (09:33)
[2021-12-12] MEDS ORDERED: LIDOCAINE 1% PF 10 MG/ML (5 ML AMP) SQ ONE ×3 (09:34→09:46)
[2021-12-12] MEDS ORDERED: IOPAMIDOL-370 100ML BTL INJ ONE (10:04)
[2021-12-12 10:10] LABS: Chol/HDL Ratio 2.45 Ratio; LDL Cholesterol,Calculated 36.9 mg/dL (0.0-131.0)
--- NOTE | 2021-12-12 10:28 | CC ---
CARDIAC CATHETERIZATION REPORT INDICATION: Unstable angina. This is a 61-year-old gentleman with history of coronary artery disease, status post prior angioplasty of right coronary artery, who presented to hospital complaining of chest pain. He was evaluated by my associate, Dr. Carpenter, who diagnosed unstable angina and advised him to undergo cardiac catheterization. I was asked to perform the procedure. PROCEDURE NOTE: After obtaining informed consent, left heart catheterization and coronary angiogram were performed via the right femoral artery. I initially attempted vascular access through the right radial artery and was unsuccessful; hence proceeded to perform cardiac catheterization via the right femoral artery. At the end of the procedure we performed a femoral angiogram. He has a heavily calcified atherosclerotic plaque. Hence we opted for manual hemostasis. He received moderate conscious sedation. Total sedation time was 27 minutes. FINDINGS: HEMODYNAMICS: Left ventricular end-diastolic pressure is 11 mm. There is no significant gradient across the aortic valve. LEFT VENTRICULOGRAM: Left ventriculogram was not performed. ANGIOGRAPHIC DATA: Right coronary artery is a large dominant vessel. The previously stented segment appears patent. PDA shows focal 80% stenosis but its a small caliber vessel distally and is supplying a small area of myocardium.Left main coronary artery is a short vessel. Free of disease. The circumflex coronary artery was selectively visualized with a size 4 catheter and the LAD was selectively visualized with a size 3 Hanna catheter. The circumflex coronary artery is a codominant system and shows mild non-obstructive disease. Mid LAD shows a mild atherosclerotic plaque. CONCLUSIONS: Patent stents within the right coronary artery. significant lesion in PDA. Mild non-obstructive disease in the mid LAD. PLAN: Patient's management is going to be with optimal medical therapy. If he persisits with symptoms will consider PTCA of PDA . We will do manual hemostasis. MMODL / IJN: [id number] / MASSIEL
[2021-12-12] MEDS ORDERED: RX INFO: IV CONTRAST WAS GIVEN 1 EACH MISC MISCELLANE PRN ×2 (10:54→13:09)
[2021-12-12] MEDS: SODIUM CHLORIDE 0.9% 1,000 ML IV SCH ×2 (11:47→14:08)
[2021-12-12] MEDS: ISOSORBIDE MONONITRATE ER 30 MG TAB.ER.24H PO SCH (11:49)
[2021-12-12] MEDS: ALPRAZolam 0.5 MG TAB PO PRN (11:51)
[2021-12-12] MEDS ORDERED: hydrALAZINE HCL 20 MG/ML 1 ML VIAL IVP PRN (13:18)
[2021-12-12] MEDS: LIDOCAINE 5% PATCH TOPICAL SCH (14:05)
[2021-12-12] MEDS: FUROSEMIDE 40 MG TAB PO SCH (16:21)
[2021-12-12 17:46] LABS: Amphetamine Screen,Urine Detected (NotDetected); Benzodiazepines Screen,Urine Detected (NotDetected); Cocaine Screen,Urine Not Detected (NotDetected); Methadone Screen, Urine Not Detected (NotDetected); Opiate Screen,Urine Not Detected (NotDetected); Phencyclidine Screen,Urine Not Detected (NotDetected); Tricyclic Antidepressant,Urine Not Detected (NotDetected); Urn Cannabinoid Scrn Not Detected (NotDetected)
[2021-12-12 17:47] LABS: Barbiturate Screen,Urine Not Detected (NotDetected); Oxycodone Screen, Urine Not Detected (NotDetected)
--- NOTE | 2021-12-12 18:17 | P.PN ---
Subjective Patient was examined at bedside today not complaining of any new symptomatology. He is more alert oriented compared to day of admission. Blood pressure continues to be elevated this can be secondary to intractable lower back pain which is chronic in nature. I have discussed the case with patient as well as RN present at bedside. Anticipate discharge in the next 24 hours. Objective - Vital Signs Vital signs: Vital Signs Temp 97.4 F L 12/12/21 10:36 Pulse 52 L 12/12/21 14:36 Resp 16 12/12/21 14:36 BP 153/74 12/12/21 14:36 Pulse Ox 94 L 12/12/21 14:36 Intake & Output 12/11/21 12/12/21 12/12/21 18:59 06:59 18:59 Intake Total 700 Balance 700 Weight 95.254 kg 95.254 kg Intake: IV 100 Intake, IV Titration 600 Amount Sodium Chloride 0.9% 1, 600 000 ml @ 75 mls/hr IV . [id number] CAMPBELL Rx#:[id number] Other: # Voids 0 - Exam Gen. patient is awake alert oriented 2 however very lethargic Cardio normal S1/S2 Respiratory bilateral rhonchi no wheezing or crackles appreciated Abdomen soft, nontender Neuro unable to complete a full neuro examination is a patient waxes and wanes. He seems a little altered at times. Extremity no pitting edema noted - Labs CBC & Chem 7: 12/11/21 11:12 12/11/21 11:12 Labs: Abnormal Lab Results - Last 24 Hours (Table) 12/12/21 Range/Units 17:22 Ur Amphetamines Screen Detected H (NotDetected) U Methamphetamines Scrn Detected H (NotDetected) U Benzodiazepines Scrn Detected H (NotDetected) Assessment and Plan Assessment: Assessment: #1 altered mental status possibly secondary to polysubstance abuse with Valium? #2 chest pain rule out ACS versus muscle skeletal #3 essential hypertension #4 hyperlipidemia #5 hypertensive urgency Plan: -Admit to medicine for close monitoring -Aspiration/fall precaution -Continue with Tylenol and directed medical therapy. Patient does have hypertensive urgency we'll hold discharge for another 24 hours. -Blood pressure goal of at least less than 160 prior to discharge. Blood pressure can also be elevated secondary to intractable pain we have added lidocaine patch and we will continue to monitor. -Patient underwent cardiac catheterization at this time recommending optimal medical therapy. There is significant lesion in the PDA with mild nonobstructive disease in the mid LAD. -Risk stratify patient with lipid panel, hemoglobin A1c - normal limits. -DVT prophylaxis Lovenox Disposition discharged next 24 hours most blood pressure stable.
[2021-12-12] MEDS ORDERED: ATORVASTATIN 40 MG TAB PO SCH (21:00)
[2021-12-13] MEDS: SODIUM CHLORIDE 0.9% 1,000 ML in EMPTY BAG 1 BAG IV SCH (00:35)
[2021-12-13] MEDS: SODIUM CHLORIDE 0.9% 1,000 ML IV SCH ×2 (00:42)
[2021-12-13] MEDS: ALPRAZolam 0.5 MG TAB PO PRN (00:44)
[2021-12-13] MEDS ORDERED: HYDROcodone/APAP 5-325MG 1 EACH TAB PO PRN (04:12)
[2021-12-13] MEDS ORDERED: HEPARIN SODIUM,PORCINE 2,500 UNIT in SODIUM CHLORIDE 0.9% 250 ML IRRIGATION PRN (07:00)
[2021-12-13] MEDS ORDERED: HEPARIN SODIUM,PORCINE 10,000 UNIT in SODIUM CHLORIDE 0.9% 1,000 ML IRRIGATION PRN (07:00)
[2021-12-13 07:13] LABS: Basophils # (A) 0.1 k/uL (0-0.2); Basophils % (A) 1 %; Eosinophils # (A) 0.3 k/uL (0-0.7); Eosinophils % (A) 3 %; HCT 45.9 % (39.0-53.0); HGB 14.7 gm/dL (13.0-17.5); Lymphocytes # (A) 2.4 k/uL (1.0-4.8); Lymphocytes % (A) 25 %; MCH 31.8 pg (25.0-35.0); MCV 99.3 fL (80.0-100.0); Mean Platelet Volume 8.7; Monocytes # (A) 0.5 k/uL (0-1.0); Monocytes % (A) 5 %; Neutrophils # (A) 6.1 k/uL (1.3-7.7); Neutrophils % (A) 65 %; Platelet Count 170 k/uL (150-450); RBC 4.62 m/uL (4.30-5.90); RDW 13.2 % (11.5-15.5); WBC 9.5 k/uL (3.8-10.6)
[2021-12-13 07:14] LABS: African American GFR (CKD) >90 (>60 ml/min/1.73 sqM); Anion Gap 6 mmol/L; Blood Urea Nitrogen 18 mg/dL (9-20); Calcium 8.3 mg/dL (8.4-10.2); Carbon Dioxide 26 mmol/L (22-30); Chloride 105 mmol/L (98-107); Glucose 93 mg/dL (74-99); Non-African American GFR(CKD) >90 (>60 ml/min/1.73 sqM); Potassium 3.7 mmol/L (3.5-5.1); Sodium 137 mmol/L (137-145)
[2021-12-13 07:23] VITALS: RESP 18; TEMP 97.7
[2021-12-13] MEDS: lisinopriL 20 MG TAB PO SCH (08:12)
[2021-12-13] MEDS: METOPROLOL TARTRATE 50 MG TAB PO SCH (08:12)
[2021-12-13] MEDS: ISOSORBIDE MONONITRATE ER 30 MG TAB.ER.24H PO SCH (08:12)
[2021-12-13] MEDS: FUROSEMIDE 40 MG TAB PO SCH (08:12)
[2021-12-13] MEDS: LIDOCAINE 5% PATCH TOPICAL SCH (08:13)
[2021-12-13] MEDS ORDERED: ASPIRIN 81 MG PO SCH (09:00)
--- NOTE | 2021-12-13 12:23 | CA ---
Transthoracic Echo Report Name: Jozef Banuelos Age: 61 Gender: M : 1960 Exam Date: 12/12/2021 11:07 Exam Location: [facility] Ht (in): 67 Wt (lb): 210 Ordering Physician: Stefania Pires Attending/Referring Phys: Stock Worker Brittany Martin RDCS Procedure CPT: Indications: Chest pain, unstable angina Cardiac Hx: Hx of hrt cath and stents Technical Quality: Good Contrast 1: Total Dose (mL): Contrast 2: Total Dose (mL): MEASUREMENTS (Male / Female) Normal Values 2D ECHO LV Diastolic Diameter PLAX 5.4 cm 4.2 - 5.9 / 3.9 - 5.3 cm LV Systolic Diameter PLAX 3.0 cm IVS Diastolic Thickness 0.9 cm 0.6 - 1.0 / 0.6 - 0.9 cm LVPW Diastolic Thickness 1.2 cm 0.6 - 1.0 / 0.6 - 0.9 cm LV Relative Wall Thickness 0.4 RV Internal Dim ED PLAX 3.5 cm LA Volume 60.9 cm??? 18 - 58 / 22 - 52 cm??? M-MODE Aortic Root Diameter MM 3.9 cm LA Systolic Diameter MM 3.6 cm LA Ao Ratio MM 0.9 MV E Point Septal Separation 0.7 cm AV Cusp Separation MM 2.2 cm DOPPLER AV Peak Velocity 118.7 cm/s AV Peak Gradient 5.6 mmHg MV Area PHT 2.3 cm??? MR Peak Velocity 98.2 cm/s MR Peak Gradient 3.9 mmHg Mitral E Point Velocity 67.3 cm/s Mitral A Point Velocity 81.4 cm/s Mitral E to A Ratio 0.8 MV Deceleration Time 328.0 ms MV E' Velocity 5.1 cm/s Mitral E to MV E' Ratio 13.1 TR Peak Velocity 90.4 cm/s TR Peak Gradient 3.3 mmHg FINDINGS Left Ventricle Normal Left ventricular size, wall thickness, systolic function with no obvious regional wall motion abnormalities. Normal Left ventricular diastolic filling pattern. Left ventricular ejection fraction is estimated at 55-60_%. Right Ventricle The right ventricle is normal in size and function. Right Atrium The right atrium is normal in size. Left Atrium Mildly increased left atrial volume. Mildly increased left atrial area. Mitral Valve Structurally normal mitral valve without significant stenosis or prolapse. There is mild mitral regurgitation. Aortic Valve Structurally normal aortic valve without significant sclerosis or stenosis. There is no aortic regurgitation. Tricuspid Valve Structurally normal tricuspid valve without significant stenosis. Pulmonary artery systolic pressure is normal. Trace tricuspid regurgitation. Pulmonic Valve Structurally normal pulmonic valve without significant stenosis. There is no pulmonic regurgitation. Pericardium Normal pericardium without effusion. Aorta Normal aortic root dimension. CONCLUSIONS Technically difficult study for interpretation Normal left ventricular dimension and systolic function Please see above for further details Previewed by: Dr. Mars Carpenter MD (Electronically Signed) Final Date: 13 Dec 2021 12:22
--- NOTE | 2021-12-13 14:01 | P.DS ---
Providers Date of admission: 12/11/21 13:02 Attending physician: Rodolfo Young MD Consults: 12/11/21 12:56 Consult Physician Urgent Consulting Provider: [facility] Consult Reason/Comments: Chest pain Do you want consulting provider notified?: Yes Primary care physician: Stated None Hospital Course: Patient is a 61-year-old male with a past medical history significant for tobacco dependence, polysubstance abuse with Valium?, Essential hypertension, hyperlipidemia and coronary disease status post -01/05 as per patient the presents a hospital complaining of chest pain to the emergency department however on my examination not complaining of anything. Patient is a poor historian and not able to get too much information from him. He kind of waxes and wanes. States that he did take some Valium a few days ago was not able to quantify amount or date. Patient is being admitted to internal medicine for possible chest pain. Vital signs are reviewed pulse 52, normal tensive 153/82, saturating 99% on room air. CBC reviewed leukocytosis 11.6, BP reviewed unremarkable including cardiac troponin negative 1. EKG reviewed. Chest x-ray stable. By cardiology and underwent cardiac catheterization. Revealed patent stents with in the RCA to the lesion in the PDA. Mild on surgery disease in the mid LAD. Patient is recommended to continue with medical therapy as per cardiology. Continue with aspirin, statin, sick, Imdur, metoprolol titrate and lisinopril. Patient will from preoperative perspective for discharge follow-up with Dr. maci bhandari. Appointment has been made for 12/19/2021. He is asked to be compliant with his medication blood pressure 154/77, afebrile with a heart rate of 72. Plan - Discharge Summary New Discharge Prescriptions: New Aspirin 81 mg PO DAILY #90 tab lisinopriL 40 mg PO DAILY 60 Days #60 tab Rivaroxaban [Xarelto] 20 mg PO DAILY 30 Days #30 tab Atorvastatin [Lipitor] 80 mg PO HS 90 Days #90 tab Continue Furosemide [Lasix] 40 mg PO BID #60 tab Isosorbide Mononitrate ER [Imdur] 30 mg PO DAILY #30 tab Fluticasone/Umeclidin/Vilanter [Trelegy Ellipta 100-62.5-25] 1 puff INHALATION RT-DAILY Sertraline [Zoloft] 50 mg PO DAILY Metoprolol Tartrate [Lopressor] 100 mg PO BID Albuterol Sulfate [Ventolin HFA] 1 - 2 puff INHALATION RT-Q6H PRN PRN Reason: Shortness Of Breath Nitroglycerin Sl Tabs [Nitrostat] 0.4 mg SL Q5M PRN PRN Reason: Chest Pain Discontinued Atorvastatin [Lipitor] 40 mg PO HS #30 tab lisinopriL [Zestril] 20 mg PO DAILY 30 Days #30 tab Discharge Medication List Furosemide [Lasix] 40 mg PO BID #60 tab 07/23/20 [Rx] Isosorbide Mononitrate ER [Imdur] 30 mg PO DAILY #30 tab 07/23/20 [Rx] Albuterol Sulfate [Ventolin HFA] 1 - 2 puff INHALATION RT-Q6H PRN 07/21/21 [History] Fluticasone/Umeclidin/Vilanter [Trelegy Ellipta 100-62.5-25] 1 puff INHALATION RT-DAILY 07/21/21 [History] Metoprolol Tartrate [Lopressor] 100 mg PO BID 12/11/21 [History] Nitroglycerin Sl Tabs [Nitrostat] 0.4 mg SL Q5M PRN 12/11/21 [History] Sertraline [Zoloft] 50 mg PO DAILY 12/11/21 [History] Aspirin 81 mg PO DAILY #90 tab 12/12/21 [Rx] Atorvastatin [Lipitor] 80 mg PO HS 90 Days #90 tab 12/12/21 [Rx] Rivaroxaban [Xarelto] 20 mg PO DAILY 30 Days #30 tab 12/12/21 [Rx] lisinopriL 40 mg PO DAILY 60 Days #60 tab 12/12/21 [Rx] Follow up Appointment(s)/Referral(s): [facility] [REFERRING] - As Needed (Contact regarding food stamps.) [facility] [NON-STAFF] - As Needed (Contact after estabilished with a primary care provider. ) None,Stated [Primary Care Provider] - 1-2 days Nathan Queen MD [STAFF PHYSICIAN] - 12/19/21 3:15 pm Activity/Diet/Wound Care/Special Instructions: Contact insurance regarding primary care provider in area that are in network and become established with a provider. Discharge/Stand Alone Forms: Community Resources Discharge Disposition: HOME SELF-CARE
[2021-12-13 14:33] VITALS: BP 129/69; PULSE 85
[2021-12-13] MEDS ORDERED: RIVAROXABAN 20 MG TAB PO SCH (17:30)
[2021-12-13] MEDS ORDERED: ATORVASTATIN 80 MG TAB PO SCH (21:00)
[2021-12-13] MEDS ORDERED: ATORVASTATIN 40 MG TAB PO SCH (21:00)
== END 2021-12-13 14:49 | disposition home or self-care (01) ==
LOC: EC 10:42 → 6NMEDSUR 13:02
PROVIDERS: ADMIT Internal Medicine; ATTEND Internal Medicine
DX: I25.110 Atherosclerotic heart disease of native coronary artery with unstable angina pectoris (principal); R41.82 Altered mental status, unspecified; G89.29 Other chronic pain; M54.50 Low back pain, unspecified; I11.0 Hypertensive heart disease with heart failure; I50.22 Chronic systolic (congestive) heart failure; E78.5 Hyperlipidemia, unspecified; I16.0 Hypertensive urgency; J44.9 Chronic obstructive pulmonary disease, unspecified; K21.9 Gastro-esophageal reflux disease without esophagitis; I25.2 Old myocardial infarction; M19.90 Unspecified osteoarthritis, unspecified site; M10.9 Gout, unspecified; F41.9 Anxiety disorder, unspecified; F32.A Depression, unspecified; I48.0 Paroxysmal atrial fibrillation; I25.5 Ischemic cardiomyopathy; F17.290 Nicotine dependence, other tobacco product, uncomplicated; T45.516A Underdosing of anticoagulants, initial encounter; I95.9 Hypotension, unspecified; R47.81 Slurred speech; M79.606 Pain in leg, unspecified; E78.00 Pure hypercholesterolemia, unspecified; I35.8 Other nonrheumatic aortic valve disorders; Z86.718 Personal history of other venous thrombosis and embolism; Z86.19 Personal history of other infectious and parasitic diseases; Z86.14 Personal history of Methicillin resistant Staphylococcus aureus infection; Z95.5 Presence of coronary angioplasty implant and graft; Z79.899 Other long term (current) drug therapy; Z86.711 Personal history of pulmonary embolism; Z86.73 Personal history of transient ischemic attack (TIA), and cerebral infarction without residual deficits; Z90.49 Acquired absence of other specified parts of digestive tract; Z90.79 Acquired absence of other genital organ(s); Z82.49 Family history of ischemic heart disease and other diseases of the circulatory system; Z80.9 Family history of malignant neoplasm, unspecified
CPT/HCPCS: 96374; 99285; 36415; 93005; 93306; 93458; 80061; 80053; 80048; 83735; 84484; 85025 ×2; 85610; 85730; 80306; 83036; 71046; G0378 ×3; C1894 ×2; C1769; J2250; J2060; J2001; J3010; Q9967

== ENCOUNTER 2022-01-19 16:46 | Emergency (ER) | payer MEDICARE ==
[2022-01-19] MEDS ORDERED: PANTOPRAZOLE 40 MG/10 ML VIAL IVP STA (16:47)
[2022-01-19] MEDS ORDERED: HYDROmorphone 1 MG/ML 1 ML SYRINGE IVP STA (16:47)
[2022-01-19] MEDS ORDERED: ONDANSETRON 4 MG/2 ML VIAL IVP STA (16:47)
[2022-01-19] MEDS ORDERED: SODIUM CHLORIDE 0.9% 1,000 ML IV STA (16:47)
[2022-01-19 16:50] VITALS: TEMP 97.7
--- NOTE | 2022-01-19 16:50 | ED ---
General Adult HPI - General Stated complaint: Abd Pain Time Seen by Provider: 01/19/22 16:47 Source: patient, EMS, RN notes reviewed Mode of arrival: EMS Limitations: no limitations - History of Present Illness Initial comments: Patient is a pleasant 61-year-old male presenting to the emergency department concerns of abdominal discomfort. Onset of symptoms was around 2 or 3 in the morning. Symptoms worsen over the past couple hours. Patient has decreased appetite and nausea. Patient has vomited. Patient has had some minimal diarrhea. Patient does have history of hernia in the area of discomfort. Discomfort is somewhat severe at this time. - Related Data Home Medications Medication Instructions Recorded Confirmed Albuterol Sulfate [Ventolin HFA] 1 - 2 puff INHALATION RT-Q6H PRN 07/21/21 12/11/21 Fluticasone/Umeclidin/Vilanter 1 puff INHALATION RT-DAILY 07/21/21 12/11/21 [Trelegy Ellipta 100-62.5-25] Metoprolol Tartrate [Lopressor] 100 mg PO BID 12/11/21 12/11/21 Nitroglycerin Sl Tabs [Nitrostat] 0.4 mg SL Q5M PRN 12/11/21 12/11/21 Sertraline [Zoloft] 50 mg PO DAILY 12/11/21 12/11/21 Previous Rx's Medication Instructions Recorded Furosemide [Lasix] 40 mg PO BID #60 tab 07/23/20 Isosorbide Mononitrate ER [Imdur] 30 mg PO DAILY #30 tab 07/23/20 Aspirin 81 mg PO DAILY #90 tab 12/12/21 Atorvastatin [Lipitor] 80 mg PO HS 90 Days #90 tab 12/12/21 Rivaroxaban [Xarelto] 20 mg PO DAILY 30 Days #30 tab 12/12/21 lisinopriL 40 mg PO DAILY 60 Days #60 tab 12/12/21 Allergies Allergy/AdvReac Type Severity Reaction Status Date / Time No Known Allergies Allergy Verified 01/19/22 16:50 Review of Systems ROS Statement: Those systems with pertinent positive or pertinent negative responses have been documented in the HPI. ROS Other: All systems not noted in ROS Statement are negative. Constitutional: Denies: fever Eyes: Denies: eye pain ENT: Denies: ear pain Respiratory: Denies: cough Cardiovascular: Denies: chest pain Endocrine: Denies: fatigue Gastrointestinal: Reports: as per HPI, abdominal pain Genitourinary: Denies: dysuria Musculoskeletal: Denies: back pain Skin: Denies: rash Neurological: Denies: weakness Past Medical History Past Medical History: Chest Pain / Angina, COPD, Deep Vein Thrombosis (DVT), GERD/Reflux, Hyperlipidemia, Hypertension, Myocardial Infarction (NV), Osteoarthritis (OA) Additional Past Medical History / Comment(s): History of hepatitis A, chronic pain, gout, "kidneys shut down x2 when sick". Back pain, TIA 2009 Last Myocardial Infarction Date:: 1999 History of Any Multi-Drug Resistant Organisms: MRSA Date of last positivie culture/infection: 2015 MDRO Source:: face MRSA Past Surgical History: Bowel Resection, Heart Catheterization With Stent, Hernia Repair, Orthopedic Surgery Additional Past Surgical History / Comment(s): Shoulder surgery, hernia, cataracts, pain clinic procedures, colostomy. right testicle removed. Past Anesthesia/Blood Transfusion Reactions: No Reported Reaction Date of Last Stent Placement:: 1999 Past Psychological History: Anxiety, Depression Smoking Status: Former smoker Past Alcohol Use History: Daily Past Drug Use History: None Reported - Past Family History Mother Family Medical History: Cancer, Myocardial Infarction (NV) Additional Family Medical History / Comment(s): Mother had unknown type of cancer. She of a NV at the age of 68yrs. Father Family Medical History: Myocardial Infarction (NV) Additional Family Medical History / Comment(s): Father from his heart "exploding" at the age of 58 yrs. Sister(s) Family Medical History: Cancer Additional Family Medical History / Comment(s): Sisters x2 General Exam Limitations: no limitations General appearance: alert Head exam: Present: normocephalic Eye exam: Present: normal appearance Neck exam: Present: normal inspection Respiratory exam: Present: normal lung sounds bilaterally Cardiovascular Exam: Present: regular rate, normal rhythm GI/Abdominal exam: Present: soft, tenderness (Moderate to severe tenderness near the the umbilicus. There is fullness, probable hernia), normal bowel sounds. Absent: distended, rebound, rigid, pulsatile mass Extremities exam: Present: normal inspection Neurological exam: Present: alert Psychiatric exam: Present: normal affect, normal mood Skin exam: Present: normal color Course Vital Signs 01/19/22 01/19/22 16:47 18:35 Temperature 97.7 F Pulse Rate 64 61 Respiratory 18 16 Rate Blood Pressure 124/72 149/80 O2 Sat by Pulse 97 98 Oximetry Procedures - Procedures Initial comment: Procedure: Hernia reduction. Patient was given pain medication. Patient lying in supine position. I was able to reduce umbilical hernia with only mild discomfort. occasions. Patient does feel better following this. Medical Decision Making - Medical Decision Making Patient again reevaluated and resting comfortably in bed. Abdomen soft and nontender. Patient updated. Case discussed with Dr. Ruiz who will follow up with patient on Saturday. - Lab Data Result diagrams: 01/19/22 17:08 01/19/22 17:08 Lab Results 01/19/22 01/19/22 01/19/22 Range/Units 17:08 17:08 17:08 WBC 9.5 (3.8-10.6) k/uL RBC 3.92 L (4.30-5.90) m/uL Hgb 13.0 (13.0-17.5) gm/dL Hct 38.5 L (39.0-53.0) % MCV 98.2 (80.0-100.0) fL MCH 33.2 (25.0-35.0) pg MCHC 33.8 (31.0-37.0) g/dL RDW 12.9 (11.5-15.5) % Plt Count 185 (150-450) k/uL MPV 9.0 Neutrophils % 68 % Lymphocytes % 23 % Monocytes % 6 % Eosinophils % 3 % Basophils % 1 % Neutrophils # 6.4 (1.3-7.7) k/uL Lymphocytes # 2.2 (1.0-4.8) k/uL Monocytes # 0.5 (0-1.0) k/uL Eosinophils # 0.2 (0-0.7) k/uL Basophils # 0.1 (0-0.2) k/uL PT 10.6 (9.0-12.0) sec INR 1.0 (<1.2) APTT 27.4 (22.0-30.0) sec Sodium 139 (137-145) mmol/L Potassium 3.5 (3.5-5.1) mmol/L Chloride 110 H (98-107) mmol/L Carbon Dioxide 23 (22-30) mmol/L Anion Gap 6 mmol/L BUN 12 (9-20) mg/dL Creatinine 0.74 (0.66-1.25) mg/dL Est GFR (CKD-EPI)AfAm >90 (>60 ml/min/1.73 sqM) Est GFR (CKD-EPI)NonAf >90 (>60 ml/min/1.73 sqM) Glucose 84 (74-99) mg/dL Calcium 7.5 L (8.4-10.2) mg/dL Total Bilirubin 0.2 (0.2-1.3) mg/dL AST 15 L (17-59) U/L ALT 12 (4-49) U/L Alkaline Phosphatase 85 (38-126) U/L Total Protein 5.6 L (6.3-8.2) g/dL Albumin 3.1 L (3.5-5.0) g/dL Amylase 42 (30-110) U/L Lipase 32 (23-300) U/L - Radiology Data Radiology results: image reviewed (Incarcerated fat hernia near the umbilicus) Disposition Clinical Impression: Incarcerated hernia Disposition: HOME SELF-CARE Condition: Stable Instructions (If sedation given, give patient instructions): Umbilical Hernia (ED) Additional Instructions: Please follow-up with Dr. Ruiz on Saturday, number provided. Return for abdominal pain, vomiting, diarrhea or constipation, fevers, worsening symptoms or any other concerns. Is patient prescribed a controlled substance at d/c from ED?: No Referrals: Lanre Ruiz MD [STAFF PHYSICIAN] - 1-2 days Time of Disposition: 18:45
[2022-01-19 17:20] LABS: Basophils # (A) 0.1 k/uL (0-0.2); Basophils % (A) 1 %; Eosinophils # (A) 0.2 k/uL (0-0.7); Eosinophils % (A) 3 %; HCT 38.5 % (39.0-53.0); Lymphocytes # (A) 2.2 k/uL (1.0-4.8); Lymphocytes % (A) 23 %; MCH 33.2 pg (25.0-35.0); MCHC 33.8 g/dL (31.0-37.0); MCV 98.2 fL (80.0-100.0); Monocytes # (A) 0.5 k/uL (0-1.0); Monocytes % (A) 6 %; Neutrophils # (A) 6.4 k/uL (1.3-7.7); Neutrophils % (A) 68 %; Platelet Count 185 k/uL (150-450); RBC 3.92 m/uL (4.30-5.90); RDW 12.9 % (11.5-15.5); WBC 9.5 k/uL (3.8-10.6)
[2022-01-19 17:29] LABS: Partial Thromboplastin Time 27.4 sec (22.0-30.0); Prothrombin Time 10.6 sec (9.0-12.0)
[2022-01-19 17:37] LABS: ALT 12 U/L (4-49); AST 15 U/L (17-59); African American GFR (CKD) >90 (>60 ml/min/1.73 sqM); Albumin 3.1 g/dL (3.5-5.0); Alkaline Phosphatase 85 U/L (38-126); Amylase 42 U/L (30-110); Anion Gap 6 mmol/L; Blood Urea Nitrogen 12 mg/dL (9-20); Calcium 7.5 mg/dL (8.4-10.2); Carbon Dioxide 23 mmol/L (22-30); Chloride 110 mmol/L (98-107); Glucose 84 mg/dL (74-99); Lipase 32 U/L (23-300); Non-African American GFR(CKD) >90 (>60 ml/min/1.73 sqM); Potassium 3.5 mmol/L (3.5-5.1); Sodium 139 mmol/L (137-145); Total Bilirubin 0.2 mg/dL (0.2-1.3); Total Protein 5.6 g/dL (6.3-8.2)
--- NOTE | 2022-01-19 17:40 | CT ---
EXAMINATION TYPE: CT abdomen pelvis w con DATE OF EXAM: 01/19/2022 COMPARISON: 05/18/2021 HISTORY: Abdominal pain CT DLP: 1205 mGycm Automated exposure control for dose reduction was used. CONTRAST: Performed with IV Contrast, patient injected with 100 ml mL of Isovue 300. There is subsegmental atelectasis at the left lung base. Heart is borderline enlarged. No pericardial effusion. Liver spleen and stomach pancreas gallbladder appear intact. The bile ducts are not dilate d. There is no adrenal mass. Kidneys show satisfactory contrast opacification. There is no hydronephrosi s. Delayed images show normal renal excretion. Ureters are not dilated. There is irregular fat contai ariel 5 x 2.5 cm umbilical hernia. There is some minimal fat stranding. There is no retroperitoneal adenopathy. Abdominal aorta is atheromatous. Bladder distends smoothly. T here is fat-containing left inguinal hernia. No free fluid in the pelvis. No pelvic mass. Terminal il eum appears normal. Appendix not seen. No significant appendix. There is no mesenteric edema. No asci loida or free air. No bowel obstruction. The lumbar vertebra have normal alignment. No compression fracture. The bony pelvis is intact. Hip angelito ints are intact. IMPRESSION: Incarcerated fat containing umbilical hernia similar to old exam. Left-sided fat-containing inguinal hernia similar to old exam. No acute abnormality within the abdome n pelvis.
[2022-01-19 18:36] VITALS: BP 149/80; PULSE 61; RESP 16
[2022-01-19 18:56] LABS: Appearance,Urine Clear (Clear); Bilirubin,Urine Negative (Negative); Blood,Urine Negative (Negative); Color,Urine Yellow; Glucose,Urine (UA) Negative (Negative); Ketones,Urine Negative (Negative); Leukocyte Esterase,Urine Negative (Negative); Nitrite,Urine Negative (Negative); Protein,Urine Trace (Negative); Urobilinogen,Urine <2.0 mg/dL (<2.0)
[2022-01-19 19:08] LABS: Specific Gravity,Urine >1.050 (1.001-1.035)
== END 2022-01-19 19:10 | disposition home or self-care (01) ==
LOC: EC 16:46
DX: K46.0 Unspecified abdominal hernia with obstruction, without gangrene (principal); J44.9 Chronic obstructive pulmonary disease, unspecified; I10 Essential (primary) hypertension; I52 Other heart disorders in diseases classified elsewhere; Z87.891 Personal history of nicotine dependence; Z79.899 Other long term (current) drug therapy; Z79.51 Long term (current) use of inhaled steroids
CPT/HCPCS: 36415; 80053; 82150; 83690; 85025; 85610; 85730; 81003; 74177; 99284; 96374; 96375; 96361; J2405; J1170; C9113; Q9967

== ENCOUNTER 2022-01-28 00:47 | Inpatient (IN) | payer MEDICARE ==
[2022-01-28] MEDS ORDERED: SODIUM CHLORIDE 0.9% 1,000 ML IV STA ×2 (00:53)
[2022-01-28] MEDS ORDERED: ASPIRIN 300 MG SUPP RECTAL STA (00:54)
[2022-01-28 01:12] LABS: Glucose,Whole Blood 207 mg/dL (70-110)
--- NOTE | 2022-01-28 01:14 | ED ---
CPR HPI - General Chief Complaint: Cardiac Arrest/CPR Stated Complaint: Cardiac Arrest Time Seen by Provider: 01/28/22 00:53 Source: EMS Mode of arrival: EMS Limitations: altered mental status - History of Present Illness Initial Comments: This patient is 61-year-old man brought by EMS after he collapsed at home. Family reportedly called after the patient collapsed, and EMS arrived 3 minutes after the call. They found the patient unresponsive. He did have a pulse but was agonal. He went into ventricular fibrillation requiring 4 attempts at defib rillation. He also had been given epinephrine, 4 mg and he had loading dose of amiodarone. The EMS personnel did get a pulse back and were transporting him. He did lose pulses and had one more round of ACLS with return of pulses. MD Complaint: collapsed during rest -: minute(s) Place: home Bystander CPR Performed: No AED Applied by Bystander/Checkering Machine Adjuster: Yes Shock Advised: Yes Number of Shocks Delivered: >3 Initial Findings in the Field: agonal ROSC in the Field: Yes Associated Injuries: No Treatments Prior to Arrival: intubation, chest compressions, defibrillated shocks # (4), epinephrine mgs # (4), amiodarone - Related Data Home Medications Medication Instructions Recorded Confirmed Albuterol Sulfate [Ventolin HFA] 1 - 2 puff INHALATION RT-Q6H PRN 07/21/21 01/30/22 Metoprolol Tartrate [Lopressor] 100 mg PO BID-W/MEALS 12/11/21 01/30/22 Nitroglycerin Sl Tabs [Nitrostat] 0.4 mg SL Q5M PRN 12/11/21 01/30/22 Sertraline [Zoloft] 50 mg PO DAILY 12/11/21 01/28/22 Isosorbide Mononitrate ER [Imdur] 60 mg PO DAILY 01/28/22 01/30/22 Rivaroxaban [Xarelto] 20 mg PO W/SUPPER 01/28/22 01/30/22 cloNIDine HCL [Catapres] 0.2 mg PO BID 01/28/22 01/30/22 lisinopriL 40 mg PO DAILY 01/28/22 01/30/22 amLODIPine [Norvasc] 10 mg PO DAILY 01/30/22 01/30/22 Previous Rx's Medication Instructions Recorded Furosemide [Lasix] 40 mg PO BID #60 tab 12/26/20 Atorvastatin [Lipitor] 80 mg PO HS 90 Days #90 tab 12/12/21 Allergies Allergy/AdvReac Type Severity Reaction Status Date / Time No Known Allergies Allergy Verified 01/28/22 00:56 Review of Systems ROS Statement: Those systems with pertinent positive or pertinent negative responses have been documented in the HPI. ROS Other: All systems not noted in ROS Statement are negative. Limitations: ROS unobtainable due to patients medical condition Past Medical History Past Medical History: Chest Pain / Angina, COPD, Deep Vein Thrombosis (DVT), GERD/Reflux, Hyperlipidemia, Hypertension, Myocardial Infarction ([place]), Osteoarthritis ([place]) Additional Past Medical History / Comment(s): History of hepatitis A, chronic pain, gout, "kidneys shut down x2 when sick". Back pain, TIA 2009 Last Myocardial Infarction Date:: 1999 History of Any Multi-Drug Resistant Organisms: MRSA Date of last positivie culture/infection: 2015 MDRO Source:: face MRSA Past Surgical History: Bowel Resection, Heart Catheterization With Stent, Hernia Repair, Orthopedic Surgery Additional Past Surgical History / Comment(s): Shoulder surgery, hernia, cataracts, pain clinic procedures, colostomy. right testicle removed. Past Anesthesia/Blood Transfusion Reactions: No Reported Reaction Date of Last Stent Placement:: 1999 Past Psychological History: Anxiety, Depression Smoking Status: Former smoker Past Alcohol Use History: Daily Past Drug Use History: None Reported - Past Family History Mother Family Medical History: Cancer, Myocardial Infarction ([place]) Additional Family Medical History / Comment(s): Mother had unknown type of c ancer. She of a [place] at the age of 68yrs. Father Family Medical History: Myocardial Infarction ([place]) Additional Family Medical History / Comment(s): Father from his heart "exploding" at the age of 58 yrs. Sister(s) Family Medical History: Cancer Additional Family Medical History / Comment(s): Sisters x2 General Exam Limitations: altered mental status General appearance: other (Patient is intubated and unresponsive) Head exam: Present: atraumatic, normocephalic Eye exam: Present: other ( Midrange and unresponsive) ENT exam: Present: other (There is an endotracheal tube present) Neck exam: Present: normal inspection, other (No evidence of trauma. No bony deformity or step-off) Respiratory exam: Present: rhonchi, other (Patient is making respiratory efforts above the ventilator.). Absent: wheezes, rales Cardiovascular Exam: Present: irregular rhythm, normal heart sounds. Absent: systolic murmur, diastolic murmur, rubs, gallop GI/Abdominal exam: Present: soft. Absent: distended, tenderness, guarding, rebound, rigid, mass Extremities exam: Present: normal inspection, normal capillary refill. Absent: pedal edema, calf tenderness Back exam: Present: normal inspection Neurological exam: Present: other (Patient is unresponsive but is breathing over the ventilator and does have cough and gag when the tube is moved. No other reflexes currently) Skin exam: Present: warm, dry, intact, normal color. Absent: rash Course Vital Signs 01/28/22 01/28/22 01/28/22 00:49 00:50 00:58 Temperature 97.7 F Pulse Rate 97 94 Respiratory 20 20 Rate Blood Pressure 186/129 151/112 O2 Sat by Pulse 85 L 100 Oximetry Fraction of 100 Inspired Oxygen (FIO2) 01/28/22 01/28/22 01/28/22 01:06 01:14 01:18 Temperature Pulse Rate 85 93 98 Respiratory 20 24 24 Rate Blood Pressure 126/87 130/94 124/86 O2 Sat by Pulse 100 99 97 Oximetry Fraction of Inspired Oxygen (FIO2) 01/28/22 01/28/22 01:20 01:30 Temperature Pulse Rate 99 103 H Respiratory 24 24 Rate Blood Pressure 117/80 108/75 O2 Sat by Pulse 98 97 Oximetry Fraction of Inspired Oxygen (FIO2) Medical Decision Making - Medical Decision Making This patient is 61-year-old man with out of Hospital [id number] arrest. Following ACLS protocol there was ROSC, and on arrival, the ECG is concerning for STEMI. The Senior Compliance Officer was activated and patient is sent to the Senior Compliance Officer. - Lab Data Result diagrams: 02/06/22 18:20 02/06/22 18:20 Lab Results 01/28/22 01/28/22 01/28/22 Range/Units 00:57 00:57 00:57 WBC 10.8 H (3.8-10.6) k/uL RBC 4.48 (4.30-5.90) m/uL Hgb 15.2 (13.0-17.5) gm/dL Hct 48.0 (39.0-53.0) % MCV 107.1 H D (80.0-100.0) fL MCH 34.0 (25.0-35.0) pg MCHC 31.7 (31.0-37.0) g/dL RDW 13.4 (11.5-15.5) % Plt Count 149 L (150-450) k/uL MPV 10.4 Neutrophils % 19 % Lymphocytes % 71 % Monocytes % 4 % Eosinophils % 2 % Basophils % 1 % Neutrophils # 2.1 (1.3-7.7) k/uL Lymphocytes # 7.7 H (1.0-4.8) k/uL Monocytes # 0.4 (0-1.0) k/uL Eosinophils # 0.2 (0-0.7) k/uL Basophils # 0.1 (0-0.2) k/uL Manual Slide Review Performed Hypochromasia Marked Macrocytosis Moderate PT 11.2 (9.0-12.0) sec INR 1.0 (<1.2) APTT 24.5 (22.0-30.0) sec Sample Site ABG pH (7.35-7.45) ABG pCO2 (35-45) mmHg ABG pO2 (83-108) mmHg ABG HCO3 (21-25) mmol/L ABG Total CO2 (19-24) mmol/L ABG O2 Saturation (94-97) % ABG Base Excess mmol/L Rao Test FiO2 % Sodium 142 (137-145) mmol/L Potassium 3.7 (3.5-5.1) mmol/L Chloride 110 H (98-107) mmol/L Carbon Dioxide 16 L (22-30) mmol/L Anion Gap 16 mmol/L BUN 17 (9-20) mg/dL Creatinine 1.23 (0.66-1.25) mg/dL Est GFR (CKD-EPI)AfAm 72 (>60 ml/min/1.73 sqM) Est GFR (CKD-EPI)NonAf 62 (>60 ml/min/1.73 sqM) Glucose 171 H (74-99) mg/dL POC Glucose (mg/dL) (70-110) mg/dL POC Glu Rim Roller Setter ID Plasma Lactic Acid Joce (0.7-2.0) mmol/L Calcium 8.3 L (8.4-10.2) mg/dL Magnesium 2.5 H (1.6-2.3) mg/dL Total Bilirubin 0.4 (0.2-1.3) mg/dL AST 337 H (17-59) U/L ALT 310 H (4-49) U/L Alkaline Phosphatase 83 (38-126) U/L Troponin I (0.000-0.034) ng/mL Total Protein 5.7 L (6.3-8.2) g/dL Albumin 3.2 L (3.5-5.0) g/dL 01/28/22 01/28/22 01/28/22 Range/Units 00:57 00:57 01:10 WBC (3.8-10.6) k/uL RBC (4.30-5.90) m/uL Hgb (13.0-17.5) gm/dL Hct (39.0-53.0) % MCV (80.0-100.0) fL MCH (25.0-35.0) pg MCHC (31.0-37.0) g/dL RDW (11.5-15.5) % Plt Count (150-450) k/uL MPV Neutrophils % % Lymphocytes % % Monocytes % % Eosinophils % % Basophils % % Neutrophils # (1.3-7.7) k/uL Lymphocytes # (1.0-4.8) k/uL Monocytes # (0-1.0) k/uL Eosinophils # (0-0.7) k/uL Basophils # (0-0.2) k/uL Manual Slide Review Hypochromasia Macrocytosis PT (9.0-12.0) sec INR (<1.2) APTT (22.0-30.0) sec Sample Site ABG pH (7.35-7.45) ABG pCO2 (35-45) mmHg ABG pO2 (83-108) mmHg ABG HCO3 (21-25) mmol/L ABG Total CO2 (19-24) mmol/L ABG O2 Saturation (94-97) % ABG Base Excess mmol/L Rao Test FiO2 % Sodium (137-145) mmol/L Potassium (3.5-5.1) mmol/L Chloride (98-107) mmol/L Carbon Dioxide (22-30) mmol/L Anion Gap mmol/L BUN (9-20) mg/dL Creatinine (0.66-1.25) mg/dL Est GFR (CKD-EPI)AfAm (>60 ml/min/1.73 sqM) Est GFR (CKD-EPI)NonAf (>60 ml/min/1.73 sqM) Glucose (74-99) mg/dL POC Glucose (mg/dL) 207 H (70-110) mg/dL POC Glu Rim Roller Setter ID Noah Josue Plasma Lactic Acid Joce 9.2 H* (0.7-2.0) mmol/L Calcium (8.4-10.2) mg/dL Magnesium (1.6-2.3) mg/dL Total Bilirubin (0.2-1.3) mg/dL AST (17-59) U/L ALT (4-49) U/L Alkaline Phosphatase (38-126) U/L Troponin I 0.018 (0.000-0.034) ng/mL Total Protein (6.3-8.2) g/dL Albumin (3.5-5.0) g/dL 01/28/22 Range/Units 01:20 WBC (3.8-10.6) k/uL RBC (4.30-5.90) m/uL Hgb (13.0-17.5) gm/dL Hct (39.0-53.0) % MCV (80.0-100.0) fL MCH (25.0-35.0) pg MCHC (31.0-37.0) g/dL RDW (11.5-15.5) % Plt Count (150-450) k/uL MPV Neutrophils % % Lymphocytes % % Monocytes % % Eosinophils % % Basophils % % Neutrophils # (1.3-7.7) k/uL Lymphocytes # (1.0-4.8) k/uL Monocytes # (0-1.0) k/uL Eosinophils # (0-0.7) k/uL Basophils # (0-0.2) k/uL Manual Slide Review Hypochromasia Macrocytosis PT (9.0-12.0) sec INR (<1.2) APTT (22.0-30.0) sec Sample Site rad ABG pH 6.95 L* (7.35-7.45) ABG pCO2 46 H (35-45) mmHg ABG pO2 >400 H (83-108) mmHg ABG HCO3 10 L* (21-25) mmol/L ABG Total CO2 12 L (19-24) mmol/L ABG O2 Saturation 99.5 H (94-97) % ABG Base Excess -21.8 mmol/L Rao Test Yes FiO2 100 % Sodium (137-145) mmol/L Potassium (3.5-5.1) mmol/L Chloride (98-107) mmol/L Carbon Dioxide (22-30) mmol/L Anion Gap mmol/L BUN (9-20) mg/dL Creatinine (0.66-1.25) mg/dL Est GFR (CKD-EPI)AfAm (>60 ml/min/1.73 sqM) Est GFR (CKD-EPI)NonAf (>60 ml/min/1.73 sqM) Glucose (74-99) mg/dL POC Glucose (mg/dL) (70-110) mg/dL POC Glu Rim Roller Setter ID Plasma Lactic Acid Joce (0.7-2.0) mmol/L Calcium (8.4-10.2) mg/dL Magnesium (1.6-2.3) mg/dL Total Bilirubin (0.2-1.3) mg/dL AST (17-59) U/L ALT (4-49) U/L Alkaline Phosphatase (38-126) U/L Troponin I (0.000-0.034) ng/mL Total Protein (6.3-8.2) g/dL Albumin (3.5-5.0) g/dL - EKG Data -: EKG Interpreted by Me EKG shows normal: intervals (QRS duration 136 ms, prolonged consistent with interventricular conduction delay. QTC 423 ms, normal), QRS complexes (Intraventricular conduction delay), ST-T waves (ST elevations in the inferior leads, 2, 3, aVF, consistent with STEMI) Rate: normal (82 bpm) Interpretation: other (Atrial fibrillation) Critical Care Time Critical Care Time: Yes (40 minutes) Disposition Clinical Impression: STEMI (ST elevation myocardial infarction), Cardiac arrest Disposition: ADMITTED IP TO THIS [facility] Condition: Critical Is patient prescribed a controlled substance at d/c from ED?: No
[2022-01-28 01:23] LABS: ABG Base Excess -21.8 mmol/L; ABG Oxygen Saturation 99.5 % (94-97); ABG PCO2 46 mmHg (35-45); ABG PO2 >400 mmHg (83-108); ABG TCO2 12 mmol/L (19-24); Allen Test Performed? Yes
[2022-01-28 01:28] LABS: ABG HCO3 10 mmol/L (21-25); ABG PH 6.95 (7.35-7.45)
--- NOTE | 2022-01-28 01:30 | XR ---
EXAM: XR Chest, 1 View CLINICAL HISTORY: chest pain TECHNIQUE: Frontal view of the chest. COMPARISON: No relevant prior studies available. FINDINGS: Lungs: No lobar consolidation. The pulmonary vasculature appears somewhat equalized. No radiographic evidence for florid CHF. Pleural space: No definite pleural effusion or pneumothorax, accounting for limitations with supine technique. Heart: The cardiac silhouette appears mildly enlarged but is presumed accentuated by portable technique. Mediastinum: No significant abnormality identified. The trachea is midline. Bones/joints: Unremarkable. Tubes, lines and devices: The endotracheal tube (ETT) is in satisfactory position with tip 6 cm above the mini. Nasogastric tube tip in the stomach. IMPRESSION: 1. No lobar consolidation. The pulmonary vasculature appears somewhat equalized. No radiographic evidence for florid CHF. No definite pleural effusion or pneumothorax, accounting for limitations with supine technique. 2. Endotracheal tube approximately 6 cm from the mini. Nasogastric tube terminates in the proximal stomach.
[2022-01-28] MEDS ORDERED: HEPARIN SODIUM 1,000 UN/ML (10ML VL) IV PRN (01:35)
[2022-01-28] MEDS ORDERED: HEPARIN SODIUM 1,000 UN/ML (10ML VL) IV ONE ×2 (01:35→02:08)
[2022-01-28] MEDS ORDERED: HEPARIN SOD,PORK IN 0.45% NACL 25,000 UNIT in 0.45% NACL 1 250ML.BAG IV SCH (01:45)
[2022-01-28 01:46] LABS: Partial Thromboplastin Time 24.5 sec (22.0-30.0); Prothrombin Time 11.2 sec (9.0-12.0)
[2022-01-28 01:49] LABS: Albumin 3.2 g/dL (3.5-5.0); Basophils # (A) 0.1 k/uL (0-0.2); Basophils % (A) 1 %; Calcium 8.3 mg/dL (8.4-10.2); Eosinophils # (A) 0.2 k/uL (0-0.7); Eosinophils % (A) 2 %; HGB 15.2 gm/dL (13.0-17.5); Hypochromasia Marked; Lymphocytes # (A) 7.7 k/uL (1.0-4.8); Lymphocytes % (A) 71 %; MCHC 31.7 g/dL (31.0-37.0); Macrocytosis Moderate; Magnesium 2.5 mg/dL (1.6-2.3); Mean Platelet Volume 10.4; Monocytes # (A) 0.4 k/uL (0-1.0); Monocytes % (A) 4 %; Neutrophils # (A) 2.1 k/uL (1.3-7.7); Neutrophils % (A) 19 %; Platelet Count 149 k/uL (150-450); Potassium 3.7 mmol/L (3.5-5.1); RBC 4.48 m/uL (4.30-5.90); RDW 13.4 % (11.5-15.5); Total Bilirubin 0.4 mg/dL (0.2-1.3); Total Protein 5.7 g/dL (6.3-8.2); WBC 10.8 k/uL (3.8-10.6)
[2022-01-28 01:50] LABS: MCV 107.1 fL (80.0-100.0)
[2022-01-28] MEDS ORDERED: LIDOCAINE 1% INJ 10MG/ML (5 ML VIAL-PF) SQ ONE (01:56)
[2022-01-28] MEDS ORDERED: SODIUM CHLORIDE 0.9% 1,000 ML IV ONE ×3 (02:00→18:07)
[2022-01-28] MEDS ORDERED: CLOPIDOGREL 75 MG TAB PO ONE (02:10)
[2022-01-28] MEDS ORDERED: MIDAZOLAM 2 MG/2 ML VIAL IV ONE (02:13)
[2022-01-28] MEDS ORDERED: NITROGLYCERIN 1000MCG/10ML SYRINGE INTRACORON ONE (02:14)
[2022-01-28] MEDS ORDERED: IOPAMIDOL-370 125ML BTL INJ ONE (02:36)
[2022-01-28] MEDS ORDERED: IOPAMIDOL-370 100ML BTL INJ ONE (02:36)
--- NOTE | 2022-01-28 02:40 | P.CRDCN ---
History of Present Illness Consult date: 01/28/22 History of present illness: History of Present Illness: The patient is a 61-year-old male with a known history of coronary disease, chronic tobacco use, paroxysmal atrial fibrillation, prior history of DVT and PE who had a cardiac arrest at home, requiring cardioversion 4 by EMS for ventricular fibrillation. When he arrived to the emergency room he was in atrial ablation with ST segment elevation inferiorly. Patient is intubated, nonresponsive. He has a prior history of CAD status post stenting of the RCA, underwent cardiac catheterization in November of this year because of symptoms of angina by Dr. Queen and was found to have patent stent in the mid RCA with 80% stenosis in the right PDA and no significant obstructive disease in the left system. Medical therapy was recommended at that time. Patient has a prior history of not taking anticoagulation because of cost, it is unclear if he has been taken it. He continues to smoke according to his brother. According to the brother the patient is not very active physically but has not felt different recently. He was sitting talking to a family member when he collapsed. His echocardiogram during last admission showed a preserved systolic function. He has no documented history of CHF or ventricular fibrillation. Medications: The list of the medication that he is taking at this time is unclear, his brother is not sure and we are awaiting his niece. Review of Systems: Could not be obtained the patient was supposed to be on metoprolol, furosemide, Lipitor, aspirin, lisinopril and Xarelto Physical Examination: 61-year-old male intubated and sedated ,Blood pressure 105/70, Heart rate 80 Head: Normocephalic. Eyes: Sclerae nonicteric. Pupils fixed but not dilated Neck: Good carotid upstroke, no bruit, no jugular venous distention. Lungs: Clear to auscultation anteriorly. Heart: Irregular rate and rhythm, S1-S2, no S3, no rub. No murmur. Abdomen: Soft , positive bowel sounds no organomegaly. Extremities: No edema, decrease distal pulses. Labs: Hemoglobin 15.2, platelets 149, pH 6.95, pO2 about 400. BUN 17, creatinine 1.23. Plasma lactic acid 9.2. AST 337, ALT 310. Troponin 0.018. EKG: Atrial fibrillation with ST segment elevation inferiorly and ST depression in the lateral leads Impression: 1. Acute inferior wall myocardial infarction in a patient with known history of stent to the RCA and disease in the right PDA by cardiac catheterization in November of this year 2. Cardiac arrest with respiratory failure 3. Possible anoxic encephalopathy 4. History of paroxysmal atrial fibrillation 5. History of smoking 6. History of hypertension 7. History of hyperlipidemia Plan: 1. I discussed his case his brother, I have recommended to proceed with emergent cardiac catheterization, the procedure as well history risks and the complications were discussed with the brother who was in agreement. 2. Depending on the results of the cardiac catheterization further recommendations will be made. 3. An echocardiogram with Doppler will be obtained 4. His neurological status will be followed closely and evaluated 5. Pulmonary consultation 6. Prognosis is guarded 7. Thank you for this consult we will follow with you. Past Medical History Past Medical History: Chest Pain / Angina, COPD, Deep Vein Thrombosis (DVT), GERD/Reflux, Hyperlipidemia, Hypertension, Myocardial Infarction ([place]), Osteoarthritis ([place]) Additional Past Medical History / Comment(s): History of hepatitis A, chronic pain, gout, "kidneys shut down x2 when sick". Back pain, TIA 2009 Last Myocardial Infarction Date:: 1999 History of Any Multi-Drug Resistant Organisms: MRSA Date of last positivie culture/infection: 2015 MDRO Source:: face MRSA Past Surgical History: Bowel Resection, Heart Catheterization With Stent, Hernia Repair, Orthopedic Surgery Additional Past Surgical History / Comment(s): Shoulder surgery, hernia, cataracts, pain clinic procedures, colostomy. right testicle removed. Past Anesthesia/Blood Transfusion Reactions: No Reported Reaction Date of Last Stent Placement:: 1999 Past Psychological History: Anxiety, Depression Smoking Status: Former smoker Past Alcohol Use History: Daily Past Drug Use History: None Reported - Past Family History Mother Family Medical History: Cancer, Myocardial Infarction ([place]) Additional Family Medical History / Comment(s): Mother had unknown type of cancer. She of a [place] at the age of 68yrs. Father Family Medical History: Myocardial Infarction ([place]) Additional Family Medical History / Comment(s): Father from his heart "exploding" at the age of 58 yrs. Sister(s) Family Medical History: Cancer Additional Family Medical History / Comment(s): Sisters x2 Medications and Allergies Home Medications Medication Instructions Recorded Confirmed Type Furosemide [Lasix] 40 mg PO BID #60 tab 07/23/20 12/11/21 Rx Isosorbide Mononitrate ER [Imdur] 30 mg PO DAILY #30 tab 07/23/20 12/11/21 Rx Albuterol Sulfate [Ventolin HFA] 1 - 2 puff INHALATION RT-Q6H PRN 07/21/21 12/11/21 History Fluticasone/Umeclidin/Vilanter 1 puff INHALATION RT-DAILY 07/21/21 12/11/21 History [Trelegy Ellipta 100-62.5-25] Metoprolol Tartrate [Lopressor] 100 mg PO BID 12/11/21 12/11/21 History Nitroglycerin Sl Tabs [Nitrostat] 0.4 mg SL Q5M PRN 12/11/21 12/11/21 History Sertraline [Zoloft] 50 mg PO DAILY 12/11/21 12/11/21 History Aspirin 81 mg PO DAILY #90 tab 12/12/21 Rx Atorvastatin [Lipitor] 80 mg PO HS 90 Days #90 tab 12/12/21 Rx Rivaroxaban [Xarelto] 20 mg PO DAILY 30 Days #30 tab 12/12/21 Rx lisinopriL 40 mg PO DAILY 60 Days #60 tab 12/12/21 Rx Allergies Allergy/AdvReac Type Severity Reaction Status Date / Time No Known Allergies Allergy Verified 01/28/22 00:56 Physical Exam Vitals: Vital Signs Temp Pulse Resp BP Pulse Ox FiO2 01/28/22 01:30 103 H 24 108/75 97 01/28/22 01:20 99 24 117/80 98 01/28/22 01:18 98 24 124/86 97 01/28/22 01:14 93 24 130/94 99 01/28/22 01:06 85 20 126/87 100 01/28/22 01:02 100 01/28/22 00:58 94 20 151/112 100 01/28/22 00:50 100 01/28/22 00:49 97.7 F 97 20 186/129 85 L Intake and Output 01/27/22 01/27/22 01/28/22 14:59 22:59 06:59 Other: Weight 88.451 kg Results 01/28/22 00:57 01/28/22 00:57 Cardiac Enzymes 01/28/22 01/28/22 Range/Units 00:57 00:57 AST 337 H (17-59) U/L Troponin I 0.018 (0.000-0.034) ng/mL Coagulation 01/28/22 Range/Units 00:57 PT 11.2 (9.0-12.0) sec APTT 24.5 (22.0-30.0) sec CBC 01/28/22 Range/Units 00:57 WBC 10.8 H (3.8-10.6) k/uL RBC 4.48 (4.30-5.90) m/uL Hgb 15.2 (13.0-17.5) gm/dL Hct 48.0 (39.0-53.0) % Plt Count 149 L (150-450) k/uL Comprehensive Metabolic Panel 01/28/22 Range/Units 00:57 Sodium 142 (137-145) mmol/L Potassium 3.7 (3.5-5.1) mmol/L Chloride 110 H (98-107) mmol/L Carbon Dioxide 16 L (22-30) mmol/L BUN 17 (9-20) mg/dL Creatinine 1.23 (0.66-1.25) mg/dL Glucose 171 H (74-99) mg/dL Calcium 8.3 L (8.4-10.2) mg/dL AST 337 H (17-59) U/L ALT 310 H (4-49) U/L Alkaline Phosphatase 83 (38-126) U/L Total Protein 5.7 L (6.3-8.2) g/dL Albumin 3.2 L (3.5-5.0) g/dL Current Medications Generic Name Dose Route Start Last Admin Trade Name Freq PRN Reason Stop Dose Admin Sodium Chloride 1,000 mls @ 100 mls/hr 01/28/22 00:53 01/28/22 01:02 Saline 0.9% IV 01/28/22 10:52 100 mls/hr .Q10H STA Administration Intake and Output 01/27/22 01/27/22 01/28/22 14:59 22:59 06:59 Other: Weight 88.451 kg Patient Weight 01/28/22 06:59 Weight 88.451 kg 01/28/22 00:57 01/28/22 00:57
[2022-01-28] MEDS ORDERED: ZOLPIDEM 5 MG TAB PO PRN (02:47)
[2022-01-28] MEDS ORDERED: RX INFO: IV CONTRAST WAS GIVEN 1 EACH MISC MISCELLANE PRN (02:47)
[2022-01-28] MEDS ORDERED: MAG HYDROX/AL HYDROX/SIMETH 30 ML CUP PO PRN (02:47)
[2022-01-28] MEDS ORDERED: ATROPINE SULFATE 0.1 MG/ML 10ML SYRINGE IV PRN (02:47)
[2022-01-28] MEDS ORDERED: NITROGLYCERIN SL TABS 0.4 MG TAB SUBLINGUAL PRN (02:47)
--- NOTE | 2022-01-28 02:47 | P.CARDCATH ---
Date of Procedure: 01/28/22 Description of Procedure: Cardiac Catheterization: The patient is a 61-year-old male with a known history of CAD who presented with cardiac arrest, V. fib and evidence of ST segment elevation inferiorly. Recommendations were made regarding cardiac catheterization, the risks and the complications were discussed with the brother who is in full understanding and agreement. Procedure Description: Patient was brought to laboratory director he was intubated, nonresponsive. Using Xylocaine Anesthesia and Seldinger technique, a 6-Yemeni sheath was introduced in the right femoral artery artery . Subsequently, selective coronary angiography was performed using a 6-Yemeni 4 bend Hanna guiding catheter. Multiple views of the coronary artery including hemiaxial views were obtained. The right Hanna catheter was used to cross the aortic valve and LVEDP was calculated. After obtaining images of the coronary arteries angioplasty and stenting of the RCA was done. Using the 6-Yemeni right Hanna guiding catheter a 0.014 BMW wire was advanced, positioned in the distal PDA. A 2.25 x 12 mm NC Treck balloon was advanced and inflation at 10 ion was done, following that and after removing the balloon a 2.25 x 18 mini need to Xience ranulfo point stent was advanced deployed and postdilated at 14 ion. Following that, catheter was removed. The sheath was sutured in place. There was no immediate complication. Patient was returned to room in stable condition. Of note, the patient received a total of 6000 units of intravenous heparin as well as Plavix. There was no immediate complications. Again the procedure his ST segment elevation improved and he returned to sinus mechanism. His ACT was monitored. Findings: Left main: This is a short size vessel, bifurcating into LAD and left circumflex, the left main has no high-grade stenosis LAD: This vessel gives rise to one diagonal branch. The LAD has mild plaque in the midsegment of 10-20% without any high-grade stenosis. Left circumflex: This is a nondominant vessel giving rise to 3 obtuse marginal branch, the left circumflex had mild plaque of 10% without any high-grade stenosis RCA: This is a large dominant vessel, bifurcating distally into PDA and PLV, the mid segment is stented and has 20% in-stent restenosis. The PDA has 80-85% tubular lesion, the rest of the vessel has no high-grade stenosis Left Ventriculogram: Not performed Hemodynamics: There was no gradient across the aortic valve, LVEDP 5-8 mmHg Conclusion: 1. Significant disease in the right PDA 2. Patent stent in the mid RCA 3. Mild in the left circumflex and the RCA 4. Successful stenting of the right PDA with reduction of the stenosis from 85% to 0% Recommendations: The patient will continue dual antiplatelets treatment with aspirin and Plavix for 1 year at least. Progressive coronary risk modification will be continued. I discussed those findings with the brother. We'll obtain neurological evaluation. The prognosis remains guarded. Duration of sedation is 33 minutes.
[2022-01-28] MEDS: SODIUM CHLORIDE 0.9% 1,000 ML in EMPTY BAG 1 BAG IV SCH ×2 (03:00→15:26)
[2022-01-28 03:10] LABS: Glucose,Whole Blood 199 mg/dL (70-110)
[2022-01-28] MEDS ORDERED: propofoL 100 ML IV ONE (03:11)
[2022-01-28] MEDS ORDERED: NALOXONE 0.4 MG/ML 1 ML VIAL IV PRN (03:38)
[2022-01-28 03:48] LABS: ABG Base Excess -14.2 mmol/L; ABG HCO3 14 mmol/L (21-25); ABG PCO2 40 mmHg (35-45); ABG PO2 96 mmHg (83-108); ABG TCO2 16 mmol/L (19-24); Allen Test Performed? Yes
[2022-01-28 03:49] LABS: ABG PH 7.17 (7.35-7.45)
[2022-01-28 04:28] LABS: HGB 17.6 gm/dL (13.0-17.5); Hypochromasia Moderate; MCH 32.9 pg (25.0-35.0); MCHC 31.8 g/dL (31.0-37.0); MCV 103.4 fL (80.0-100.0); Macrocytosis Slight; Mean Platelet Volume 9.3; Platelet Count 233 k/uL (150-450); RBC 5.35 m/uL (4.30-5.90); RDW 13.2 % (11.5-15.5); WBC 22.1 k/uL (3.8-10.6)
[2022-01-28 05:00] LABS: Albumin 3.5 g/dL (3.5-5.0); Calcium 7.8 mg/dL (8.4-10.2); HCT 55.3 % (39.0-53.0); Magnesium 2.5 mg/dL (1.6-2.3); Potassium 4.3 mmol/L (3.5-5.1); Total Bilirubin 0.6 mg/dL (0.2-1.3); Total Protein 6.3 g/dL (6.3-8.2)
[2022-01-28 05:22] LABS: Band Neutrophils % 4 %; Lymphocytes # (M) 2.21 k/uL (1.0-4.8); Monocytes # (M) 0.44 k/uL (0-1.0); Neutrophils % (M) 84 %; Nucleated Red Blood Cells 0 /100 WBC (0-0); Total Cells Counted 100
[2022-01-28 05:33] LABS: Appearance,Urine Cloudy (Clear); Bacteria,Urine Occasional /hpf; Bilirubin,Urine Negative (Negative); Blood,Urine Large (Negative); Color,Urine Yellow; Glucose,Urine (UA) Trace (Negative); Granular Casts,Urine 3 /lpf (0); Hyaline Casts,Urine 3 /lpf (0-2); Ketones,Urine Negative (Negative); Leukocyte Esterase,Urine Negative (Negative); Mucus,Urine Occasional /hpf; Nitrite,Urine Negative (Negative); PH, Urine 5.5 (5.0-8.0); Protein,Urine 2+ (Negative); RBC,Urine 20 /hpf (0-5); Squamous Epithelial Cell,Urine 1 /hpf (0-4); Urobilinogen,Urine <2.0 mg/dL (<2.0); WBC,Urine 12 /hpf (0-5)
--- NOTE | 2022-01-28 07:29 | XR ---
EXAMINATION TYPE: XR chest 1V portable DATE OF EXAM: 01/28/2022 5:45 AM COMPARISON: Chest radiographs from 01/28/2022. TECHNIQUE: XR chest 1V portable Frontal view of the chest. CLINICAL INDICATION:Male, 61 years old with history of Tube placement; FINDINGS: Lungs/Pleura: There is no evidence of pleural effusion, focal consolidation, or pneumothorax. Pulmonary vascularity: Improved aeration of lungs with persistent Mild pulmonary vascular congestion. Heart/mediastinum: Cardiomediastinal silhouette is enlarged and stable. Musculoskeletal: No acute osseous pathology. Other findings: None Lines/Tubes: Endotracheal tube with distal tip 7.0 cm above the mini Nasogastric tube with its distal tip and side-port projecting under the diaphragm. IMPRESSION: Improved aeration of the lungs with persistent Cardiomegaly and mild pulmonary vascular congestion. 2. Endotracheal and nasogastric tubes as described above.
--- NOTE | 2022-01-28 09:11 | P.CNPUL ---
History of Present Illness Consult date: 01/28/22 Chief complaint: cardiac arrest History of present illness: 61-year-old male patient was brought into the hospital after he sustained a cardiac arrest at home. The patient apparently was in V. fib arrest. His have coronary artery disease. The patient also is known to have paroxysmal atrial fibrillation. Family found the patient collapsed on the floor and EMS arrived within 3 minutes after the call. The patient was found to be unresponsive. His breathing was agonal. He had no pulse. He was in V. fib. He required 4 attempts of atrial fibrillation. He was given epinephrine 4 rounds a total of 4 mg and he was also given amiodarone. He was brought into the emergency and initial blood pressure was 186/129. The patient's EKG showed ST segment elevation inferior wall myocardial infarction along with underlying atrial fibrillation. The patient was taken for immediate cardiac catheterization and the patient was found to have significant disease in the right PDA, patent stent in the mid RCA, mild disease in the left circumflex and RCA, successful stenting of the right PDA was done without any issues. The patient's LAD and left main had some minimal disease without any high-grade stenosis. The PDA had 80-85% lesion and appropriate stenting was done. The patient was started on aspirin and Plavix. The patient was kept intubated on was brought into the intensive care unit. This morning, the patient is sedated and he is on propofol at the rate of 25 mcg/kg per minute and is adequately sedated without any issues. He is quite successful mechanical ventilator. He is currently on assist control mode at the rate of 24 with a tidal volume of 500 and FiO2 of 50% with a PEEP of 5. His cardiac rhythm is sinus at this point in time. His chest x-ray is showing adequate expansion for both lungs. ET tube is in a good location. No airspace disease or pulmonary infiltrates. There is some mild cardiomegaly noted on the chest x-ray. The patient's blood gases initially showed a pH of 7.17 with a pCO2 of 40 and pO2 of 96 and the follow-up blood gases to be done this morning. Hemodynamically, he is stable on no pressors. His blood work showed a troponin of 1.5 max atelectatic acid level initially was at 5.0 dropped down to 3.4. Serum bicarb was at 14. BUN is at 19 with a creatinine of 1.2 and the sodium is at 140. White cell count 22.1 with a hemoglobin of 17.6. Current temperature is 90.6F. The patient is currently on aspirin and Plavix. The patient is also on metoprolol at a dose of 25 mg by mouth twice a day. He is also on Zestril 2.5 mg by mouth daily for blood pressure control and he is also on high-dose statins. Noted the patient was taken Xarelto on outpatient basis which I'm assuming given to him for paroxysmal atrial fibrillation. CAT scan of the brain has not been done yet. No seizure activity has been noted. Review of Systems ROS unobtainable: due to endotracheal tube Past Medical History Past Medical History: Atrial Fibrillation, Chest Pain / Angina, COPD, Deep Vein Thrombosis (DVT), GERD/Reflux, Hyperlipidemia, Hypertension, Myocardial Infarction (GA), Osteoarthritis (OA) Additional Past Medical History / Comment(s): History of hepatitis A, chronic pain, gout, "kidneys shut down x2 when sick". Back pain, TIA 2009 Last Myocardial Infarction Date:: 1999 History of Any Multi-Drug Resistant Organisms: MRSA Date of last positivie culture/infection: 2015 MDRO Source:: face MRSA Past Surgical History: Bowel Resection, Heart Catheterization With Stent, Hernia Repair, Orthopedic Surgery Additional Past Surgical History / Comment(s): Shoulder surgery, hernia, cataracts, pain clinic procedures, colostomy. right testicle removed. Past Anesthesia/Blood Transfusion Reactions: No Reported Reaction Date of Last Stent Placement:: 1999 Past Psychological History: Anxiety, Depression Smoking Status: Former smoker Past Alcohol Use History: Daily Past Drug Use History: None Reported - Past Family History Mother Family Medical History: Cancer, Myocardial Infarction (GA) Additional Family Medical History / Comment(s): Mother had unknown type of cancer. She of a GA at the age of 68yrs. Father Family Medical History: Myocardial Infarction (GA) Additional Family Medical History / Comment(s): Father from his heart "exploding" at the age of 58 yrs. Sister(s) Family Medical History: Cancer Additional Family Medical History / Comment(s): Sisters x2 Medications and Allergies Home Medications Medication Instructions Recorded Confirmed Type Furosemide [Lasix] 40 mg PO BID #60 tab 07/23/20 12/11/21 Rx Isosorbide Mononitrate ER [Imdur] 30 mg PO DAILY #30 tab 07/23/20 12/11/21 Rx Albuterol Sulfate [Ventolin HFA] 1 - 2 puff INHALATION RT-Q6H PRN 07/21/21 12/11/21 History Fluticasone/Umeclidin/Vilanter 1 puff INHALATION RT-DAILY 07/21/21 12/11/21 History [Trelegy Ellipta 100-62.5-25] Metoprolol Tartrate [Lopressor] 100 mg PO BID 12/11/21 12/11/21 History Nitroglycerin Sl Tabs [Nitrostat] 0.4 mg SL Q5M PRN 12/11/21 12/11/21 History Sertraline [Zoloft] 50 mg PO DAILY 12/11/21 12/11/21 History Aspirin 81 mg PO DAILY #90 tab 12/12/21 Rx Atorvastatin [Lipitor] 80 mg PO HS 90 Days #90 tab 12/12/21 Rx Rivaroxaban [Xarelto] 20 mg PO DAILY 30 Days #30 tab 12/12/21 Rx lisinopriL 40 mg PO DAILY 60 Days #60 tab 12/12/21 Rx Allergies Allergy/AdvReac Type Severity Reaction Status Date / Time No Known Allergies Allergy Verified 01/28/22 00:56 Physical Exam Vitals: Vital Signs Temp Pulse Resp BP Pulse Ox FiO2 01/28/22 08:00 96.7 F L 92 24 126/92 96 50 01/28/22 07:30 92 24 116/95 98 01/28/22 07:19 50 01/28/22 07:00 92 24 118/84 97 50 01/28/22 06:30 89 24 123/84 97 50 01/28/22 06:00 88 24 111/79 96 50 01/28/22 05:30 84 24 113/81 93 L 50 01/28/22 05:15 88 27 H 113/77 93 L 50 01/28/22 05:00 86 24 102/69 93 L 50 01/28/22 04:45 85 24 101/69 91 L 50 01/28/22 04:30 81 24 92/65 90 L 50 01/28/22 04:15 83 21 87/59 92 L 50 01/28/22 04:00 82 20 102/71 91 L 50 01/28/22 03:46 50 07/22 03:45 84 21 128/80 94 L 50 01/28/22 03:30 103 H 16 150/81 92 L 50 01/28/22 03:22 50 01/28/22 03:15 98 21 137/114 92 L 50 01/28/22 01:40 103 H 24 90/60 97 01/28/22 01:30 103 H 24 108/75 97 01/28/22 01:20 99 24 117/80 98 01/28/22 01:18 98 24 124/86 97 01/28/22 01:14 93 24 130/94 99 01/28/22 01:06 85 20 126/87 100 01/28/22 00:58 94 20 151/112 100 01/28/22 00:50 100 01/28/22 00:49 97.7 F 97 20 186/129 85 L Intake and Output 01/27/22 01/28/22 01/28/22 22:59 06:59 14:59 Intake Total 1169.2 214.105 Output Total 475 65 Balance 694.2 149.105 Intake: IV 1169.2 184.6 0.9 NaCl- 369.2 184.6 Intake, IV Titration 29.505 Amount propofoL 1,000 mg In 29.505 Empty Bag 1 bag @ 5 MCG/ KG/MIN 2.654 mls/hr IV . Q24H [facility] Rx#:[id number] Output: Gastric Drainage 150 Urine 325 65 Other: Voiding Method Indwelling Catheter # Bowel Movements 2 2 Weight 92.3 kg ABP, PAP, CO, CI - Last 8 Hours Arterial Blood Pressure 131/80 Arterial Blood Pressure 124/76 Arterial Blood Pressure 116/72 Arterial Blood Pressure 117/73 Arterial Blood Pressure 112/68 Arterial Blood Pressure 102/63 Arterial Blood Pressure 114/74 Arterial Blood Pressure 111/66 Arterial Blood Pressure 105/65 Arterial Blood Pressure 93/57 Arterial Blood Pressure 90/57 Arterial Blood Pressure 93/56 Arterial Blood Pressure 112/68 Arterial Blood Pressure 165/104 Gen. appearance patient is sedated and patient, comfortable, not in acute respiratory distress and quite sick is a mechanical ventilator. Head exam was generally normal. There was no scleral icterus or corneal arcus. Mucous membranes were moist. Neck was supple and without jugular venous distension, thyromegaly, or carotid bruits. Carotids were easily palpable bilaterally. There was no adenopathy. Orogastric and orotracheal tube are both in place. Lungs are diminished bilaterally otherwise clear. Breath sounds are symmetric at this point in time. Cardiac exam revealed the PMI to be normally situated and sized. The rhythm was regular and no extrasystoles were noted during several minutes of auscultation. The first and second heart sounds were normal and physiologic splitting of the second heart sound was noted. There were no murmurs, rubs, clicks, or gallops. Abdominal exam revealed normal bowel sounds. The abdomen was soft, non-tender, and without masses, organomegaly, or appreciable enlargement of the abdominal aorta. extremities are warm. No cyanosis or clubbing and pulses are adequate at this point in time. Examination of the skin revealed no evidence of significant rashes, suspicious appearing nevi or other concerning lesions. neurologically, the patient is grimacing to deep painful stimulation all 4 extremities. Pupils around 2 mm in size, sluggishly reactive to light. No nystagmus. No preferential gaze. Positive cough and a gag. Absent Babinski signs and reflexes are symmetrical. Adequate motor and sensory function cannot be obtained. Results - Laboratory Findings CBC and BMP: 01/28/22 03:58 01/28/22 03:58 ABG ABG pH 7.17 (7.35-7.45) L* 01/28/22 03:44 ABG pCO2 40 mmHg (35-45) 01/28/22 03:44 ABG pO2 96 mmHg (83-108) 01/28/22 03:44 ABG O2 Saturation 96.0 % (94-97) 01/28/22 03:44 PT/INR, D-dimer PT 11.2 sec (9.0-12.0) 01/28/22 00:57 INR 1.0 (<1.2) 01/28/22 00:57 Abnormal lab findings: Abnormal Labs 01/28/22 01/28/22 01/28/22 00:57 00:57 00:57 WBC 10.8 H Hgb Hct MCV 107.1 H D Plt Count 149 L Neutrophils # (Manual) Lymphocytes # 7.7 H ABG pH ABG pCO2 ABG pO2 ABG HCO3 ABG Total CO2 ABG O2 Saturation Chloride 110 H Carbon Dioxide 16 L Glucose 171 H POC Glucose (mg/dL) Plasma Lactic Acid Joce 9.2 H* Calcium 8.3 L Magnesium 2.5 H AST 337 H ALT 310 H Alkaline Phosphatase Troponin I Total Protein 5.7 L Albumin 3.2 L Ur Specific [place] Urine Protein Urine Glucose (UA) Urine Blood Urine RBC Urine WBC Urine Bacteria Hyaline Casts Urine Mucus 01/28/22 01/28/22 01/28/22 01:10 01:20 03:06 WBC Hgb Hct MCV Plt Count Neutrophils # (Manual) Lymphocytes # ABG pH 6.95 L* ABG pCO2 46 H ABG pO2 >400 H ABG HCO3 10 L* ABG Total CO2 12 L ABG O2 Saturation 99.5 H Chloride Carbon Dioxide Glucose POC Glucose (mg/dL) 207 H 199 H Plasma Lactic Acid Joce Calcium Magnesium AST ALT Alkaline Phosphatase Troponin I Total Protein Albumin Ur Specific [place] Urine Protein Urine Glucose (UA) Urine Blood Urine RBC Urine WBC Urine Bacteria Hyaline Casts Urine Mucus 01/28/22 01/28/22 01/28/22 03:44 03:58 03:58 WBC 22.1 H Hgb 17.6 H Hct 55.3 H MCV 103.4 H Plt Count Neutrophils # (Manual) 19.40 H Lymphocytes # ABG pH 7.17 L* ABG pCO2 ABG pO2 ABG HCO3 14 L ABG Total CO2 16 L ABG O2 Saturation Chloride Carbon Dioxide Glucose POC Glucose (mg/dL) Plasma Lactic Acid Joce Calcium Magnesium AST ALT Alkaline Phosphatase Troponin I 1.230 H* Total Protein Albumin Ur Specific [place] Urine Protein Urine Glucose (UA) Urine Blood Urine RBC Urine WBC Urine Bacteria Hyaline Casts Urine Mucus 01/28/22 01/28/22 01/28/22 03:58 03:58 05:10 WBC Hgb Hct MCV Plt Count Neutrophils # (Manual) Lymphocytes # ABG pH ABG pCO2 ABG pO2 ABG HCO3 ABG Total CO2 ABG O2 Saturation Chloride 113 H Carbon Dioxide 14 L Glucose 194 H POC Glucose (mg/dL) Plasma Lactic Acid Joce 5.0 H* Calcium 7.8 L Magnesium 2.5 H AST 847 H ALT 636 H Alkaline Phosphatase 162 H Troponin I Total Protein Albumin Ur Specific [place] 1.050 H Urine Protein 2+ H Urine Glucose (UA) Trace H Urine Blood Large H Urine RBC 20 H Urine WBC 12 H Urine Bacteria Occasional H Hyaline Casts 3 H Urine Mucus Occasional H 01/28/22 01/28/22 06:52 06:52 WBC Hgb Hct MCV Plt Count Neutrophils # (Manual) Lymphocytes # ABG pH ABG pCO2 ABG pO2 ABG HCO3 ABG Total CO2 ABG O2 Saturation Chloride Carbon Dioxide Glucose POC Glucose (mg/dL) Plasma Lactic Acid Joce 3.4 H* Calcium Magnesium AST ALT Alkaline Phosphatase Troponin I 1.550 H* Total Protein Albumin Ur Specific [place] Urine Protein Urine Glucose (UA) Urine Blood Urine RBC Urine WBC Urine Bacteria Hyaline Casts Urine Mucus - Diagnostic Findings Chest x-ray: image reviewed Assessment and Plan Plan: Acute cardiac arrest/out of the hospital V. fib arrest witnessed, exact downtime is not well-established and the patient was given amiodarone, epinephrine and CPR with 4 defibrillations. There was ecchymosis to circulation. Acute inferior wall ST segment elevation myocardial infarction post cardiac catheterization and stenting of the PDA lesion Acute hypoxic respiratory failure secondary to cardiac arrest, currently intubated on a mechanical ventilator Paroxysmal atrial fibrillation current rhythm is sinus COPD Known history of coronary artery disease with previous stenting of the RCA Hypertension Previous history of DVT Hyperlipidemia Hepatitis A Chronic gout Chronic pain/back pain Previous history of TIA 2010 diverticular perforation/colostomy with reversal neuropathy Plan Continue ventilator support and repeated blood gases and will do the necessity ventilator changes IV fluids at the rate of 100 mL an hour Monitor the cardiac rhythm and continue aspirin and Plavix and is scheduled cardiology the need to restart Xarelto Continue metoprolol and Zestril for now Establish a triple lumen catheter and arterial line and the arterial sheath will be removed from the right groin Keep the patient sedated for now Keep temperature at around 96F CAT scan of the brain Keep propofol for now and will consider giving him a sedation holiday at a later stage to assess his underlying neurologic functions Echocardiogram at a later stage Sharda carroll last treatment [id number] Monitor white count No need for any antibiotic coverage at this point Condition is critical we'll continue to follow and make further recommendations based on his progress.
[2022-01-28] MEDS: FAMOTIDINE 20 MG/2 ML VIAL IV SCH ×2 (09:15→20:01)
[2022-01-28] MEDS: CHLORHEXIDINE GLUCONATE 15 ML CUP MUCOUS MEM SCH ×2 (09:15→20:01)
[2022-01-28] MEDS: ASPIRIN 81 MG PO SCH (09:15)
[2022-01-28] MEDS: METOPROLOL TARTRATE 25 MG TAB PO SCH ×2 (09:16→22:00)
[2022-01-28 10:35] LABS: Chol/HDL Ratio 3.03 Ratio; LDL Cholesterol,Calculated 53.9 mg/dL (0.0-131.0)
[2022-01-28 10:39] LABS: ABG Base Excess -14.5 mmol/L; ABG HCO3 13 mmol/L (21-25); ABG Oxygen Saturation 98.9 % (94-97); ABG PCO2 31 mmHg (35-45); ABG PH 7.23 (7.35-7.45); ABG PO2 143 mmHg (83-108); ABG TCO2 14 mmol/L (19-24); Allen Test Performed? Yes
--- NOTE | 2022-01-28 11:00 | P.PN ---
Subjective Progress Note Date: 01/28/22 PROGRESS NOTE The patient is a 61-year-old male with a known history of CAD, chronic tobacco use, paroxysmal atrial fibrillation who presented with cardiac arrest and ventricular fibrillation per EMS requiring cardioversion 4. On his initial EKG he was in atrial fibrillation with ST segment elevation inferiorly and underwent stenting of his right PDA. He continues to be intubated, in sinus mechanism with improvement in his ST elevation. He is on no vasopressor. His urinary output is stable. He has no evidence of recurrent ventricular tachycardia. In the past his left ventricle systolic function was normal. Medications: Aspirin, Lipitor 80 mg daily, Plavix 75 mg daily, Zestril 200 half milligrams daily, metoprolol 25 mg twice a day PHYSICAL EXAMINATION: Blood pressure 138/92 heart rate 90 LUNGS: Clear to auscultation anteriorly HEART: Regular rate and rhythm, S1, S2. No S3. No systolic murmur ABDOMEN: Soft, nontender, no organomegaly EXTREMETIES: No edema LAB: Troponin 1.23 and 1.55, BUN 19, creatinine 1.24, potassium 4.3. Plasma lactic acid 3.4. Cholesterol 121, LDL 53. AST 847 ALT 636. IMPRESSION: 1. Acute cardiac arrest with ventricular fibrillation status post cardioversion 2. Evidence of acute inferior myocardial infarction on admission with stenting of the PDA patent stent in the mid RCA 3. Prior history of paroxysmal atrial fibrillation 4. History of hyperlipidemia 5. Rule out anoxic encephalopathy 6. Chronic tobacco use 7. Elevated liver function test, probably related to the cardiac arrest 8. Prior history of DVT PLAN: 1. Continue present therapy 2. Adjust the dose of beta frank and BEHZAD inhibitor depending on the blood pressure. Reinitiate anticoagulation depending on his neurological status in view of the paroxysmal atrial fibrillation 3. Obtain an echocardiogram with Doppler 4. Computed tomography scan of the head and neurological evaluation 5. Depending on his neurological status attempt to wean. 6. Depending on his progress further evaluation will be needed to see if antiarrhythmic or ICD is indicated. 7. Prognosis is guarded. Objective - Vital Signs Vital signs: Vital Signs Temp 96.7 F L 01/28/22 08:00 Pulse 96 01/28/22 10:00 Resp 15 01/28/22 10:00 BP 138/92 01/28/22 10:00 Pulse Ox 96 01/28/22 10:00 FiO2 40 01/28/22 10:41 Intake & Output 01/27/22 01/28/22 01/28/22 18:59 06:59 18:59 Intake Total 1169.2 438.456 Output Total 475 215 Balance 694.2 223.456 Weight 92.3 kg Intake: IV 1169.2 384.6 0.9 NaCl- 369.2 384.6 Intake, IV Titration 53.856 Amount propofoL 1,000 mg In 53.856 Empty Bag 1 bag @ 5 MCG/ KG/MIN 2.654 mls/hr IV . Q24H [facility] Rx#:[id number] Output: Gastric Drainage 150 Urine 325 215 Other: Voiding Method Indwelling Catheter # Bowel Movements 2 2 ABP, PAP, CO, CI - Last Documented Arterial Blood Pressure 148/83 - Labs CBC & Chem 7: 01/28/22 03:58 01/28/22 03:58 Labs: Abnormal Lab Results - Last 24 Hours (Table) 01/28/22 01/28/22 01/28/22 Range/Units 00:57 00:57 00:57 WBC 10.8 H (3.8-10.6) k/uL Hgb (13.0-17.5) gm/dL Hct (39.0-53.0) % MCV 107.1 H D (80.0-100.0) fL Plt Count 149 L (150-450) k/uL Neutrophils # (Manual) (1.3-7.7) k/uL Lymphocytes # 7.7 H (1.0-4.8) k/uL ABG pH (7.35-7.45) ABG pCO2 (35-45) mmHg ABG pO2 (83-108) mmHg ABG HCO3 (21-25) mmol/L ABG Total CO2 (19-24) mmol/L ABG O2 Saturation (94-97) % Chloride 110 H (98-107) mmol/L Carbon Dioxide 16 L (22-30) mmol/L Glucose 171 H (74-99) mg/dL POC Glucose (mg/dL) (70-110) mg/dL Plasma Lactic Acid Joce 9.2 H* (0.7-2.0) mmol/L Calcium 8.3 L (8.4-10.2) mg/dL Magnesium 2.5 H (1.6-2.3) mg/dL AST 337 H (17-59) U/L ALT 310 H (4-49) U/L Alkaline Phosphatase (38-126) U/L Troponin I (0.000-0.034) ng/mL Total Protein 5.7 L (6.3-8.2) g/dL Albumin 3.2 L (3.5-5.0) g/dL HDL Cholesterol (40.00-60.00) mg/dL Ur Specific [place] (1.001-1.035) Urine Protein (Negative) Urine Glucose (UA) (Negative) Urine Blood (Negative) Urine RBC (0-5) /hpf Urine WBC (0-5) /hpf Urine Bacteria (None) /hpf Hyaline Casts (0-2) /lpf Urine Mucus (None) /hpf 01/28/22 01/28/22 01/28/22 Range/Units 01:10 01:20 03:06 WBC (3.8-10.6) k/uL Hgb (13.0-17.5) gm/dL Hct (39.0-53.0) % MCV (80.0-100.0) fL Plt Count (150-450) k/uL Neutrophils # (Manual) (1.3-7.7) k/uL Lymphocytes # (1.0-4.8) k/uL ABG pH 6.95 L* (7.35-7.45) ABG pCO2 46 H (35-45) mmHg ABG pO2 >400 H (83-108) mmHg ABG HCO3 10 L* (21-25) mmol/L ABG Total CO2 12 L (19-24) mmol/L ABG O2 Saturation 99.5 H (94-97) % Chloride (98-107) mmol/L Carbon Dioxide (22-30) mmol/L Glucose (74-99) mg/dL POC Glucose (mg/dL) 207 H 199 H (70-110) mg/dL Plasma Lactic Acid Joce (0.7-2.0) mmol/L Calcium (8.4-10.2) mg/dL Magnesium (1.6-2.3) mg/dL AST (17-59) U/L ALT (4-49) U/L Alkaline Phosphatase (38-126) U/L Troponin I (0.000-0.034) ng/mL Total Protein (6.3-8.2) g/dL Albumin (3.5-5.0) g/dL HDL Cholesterol (40.00-60.00) mg/dL Ur Specific [place] (1.001-1.035) Urine Protein (Negative) Urine Glucose (UA) (Negative) Urine Blood (Negative) Urine RBC (0-5) /hpf Urine WBC (0-5) /hpf Urine Bacteria (None) /hpf Hyaline Casts (0-2) /lpf Urine Mucus (None) /hpf 01/28/22 01/28/22 01/28/22 Range/Units 03:44 03:58 03:58 WBC (3.8-10.6) k/uL Hgb (13.0-17.5) gm/dL Hct (39.0-53.0) % MCV (80.0-100.0) fL Plt Count (150-450) k/uL Neutrophils # (Manual) (1.3-7.7) k/uL Lymphocytes # (1.0-4.8) k/uL ABG pH 7.17 L* (7.35-7.45) ABG pCO2 (35-45) mmHg ABG pO2 (83-108) mmHg ABG HCO3 14 L (21-25) mmol/L ABG Total CO2 16 L (19-24) mmol/L ABG O2 Saturation (94-97) % Chloride (98-107) mmol/L Carbon Dioxide (22-30) mmol/L Glucose (74-99) mg/dL POC Glucose (mg/dL) (70-110) mg/dL Plasma Lactic Acid Joce (0.7-2.0) mmol/L Calcium (8.4-10.2) mg/dL Magnesium (1.6-2.3) mg/dL AST (17-59) U/L ALT (4-49) U/L Alkaline Phosphatase (38-126) U/L Troponin I 1.230 H* (0.000-0.034) ng/mL Total Protein (6.3-8.2) g/dL Albumin (3.5-5.0) g/dL HDL Cholesterol 39.90 L (40.00-60.00) mg/dL Ur Specific [place] (1.001-1.035) Urine Protein (Negative) Urine Glucose (UA) (Negative) Urine Blood (Negative) Urine RBC (0-5) /hpf Urine WBC (0-5) /hpf Urine Bacteria (None) /hpf Hyaline Casts (0-2) /lpf Urine Mucus (None) /hpf 01/28/22 01/28/22 01/28/22 Range/Units 03:58 03:58 03:58 WBC 22.1 H (3.8-10.6) k/uL Hgb 17.6 H (13.0-17.5) gm/dL Hct 55.3 H (39.0-53.0) % MCV 103.4 H (80.0-100.0) fL Plt Count (150-450) k/uL Neutrophils # (Manual) 19.40 H (1.3-7.7) k/uL Lymphocytes # (1.0-4.8) k/uL ABG pH (7.35-7.45) ABG pCO2 (35-45) mmHg ABG pO2 (83-108) mmHg ABG HCO3 (21-25) mmol/L ABG Total CO2 (19-24) mmol/L ABG O2 Saturation (94-97) % Chloride 113 H (98-107) mmol/L Carbon Dioxide 14 L (22-30) mmol/L Glucose 194 H (74-99) mg/dL POC Glucose (mg/dL) (70-110) mg/dL Plasma Lactic Acid Joce 5.0 H* (0.7-2.0) mmol/L Calcium 7.8 L (8.4-10.2) mg/dL Magnesium 2.5 H (1.6-2.3) mg/dL AST 847 H (17-59) U/L ALT 636 H (4-49) U/L Alkaline Phosphatase 162 H (38-126) U/L Troponin I (0.000-0.034) ng/mL Total Protein (6.3-8.2) g/dL Albumin (3.5-5.0) g/dL HDL Cholesterol (40.00-60.00) mg/dL Ur Specific [place] (1.001-1.035) Urine Protein (Negative) Urine Glucose (UA) (Negative) Urine Blood (Negative) Urine RBC (0-5) /hpf Urine WBC (0-5) /hpf Urine Bacteria (None) /hpf Hyaline Casts (0-2) /lpf Urine Mucus (None) /hpf 01/28/22 01/28/22 01/28/22 Range/Units 05:10 06:52 06:52 WBC (3.8-10.6) k/uL Hgb (13.0-17.5) gm/dL Hct (39.0-53.0) % MCV (80.0-100.0) fL Plt Count (150-450) k/uL Neutrophils # (Manual) (1.3-7.7) k/uL Lymphocytes # (1.0-4.8) k/uL ABG pH (7.35-7.45) ABG pCO2 (35-45) mmHg ABG pO2 (83-108) mmHg ABG HCO3 (21-25) mmol/L ABG Total CO2 (19-24) mmol/L ABG O2 Saturation (94-97) % Chloride (98-107) mmol/L Carbon Dioxide (22-30) mmol/L Glucose (74-99) mg/dL POC Glucose (mg/dL) (70-110) mg/dL Plasma Lactic Acid Joce 3.4 H* (0.7-2.0) mmol/L Calcium (8.4-10.2) mg/dL Magnesium (1.6-2.3) mg/dL AST (17-59) U/L ALT (4-49) U/L Alkaline Phosphatase (38-126) U/L Troponin I 1.550 H* (0.000-0.034) ng/mL Total Protein (6.3-8.2) g/dL Albumin (3.5-5.0) g/dL HDL Cholesterol (40.00-60.00) mg/dL Ur Specific [place] 1.050 H (1.001-1.035) Urine Protein 2+ H (Negative) Urine Glucose (UA) Trace H (Negative) Urine Blood Large H (Negative) Urine RBC 20 H (0-5) /hpf Urine WBC 12 H (0-5) /hpf Urine Bacteria Occasional H (None) /hpf Hyaline Casts 3 H (0-2) /lpf Urine Mucus Occasional H (None) /hpf 01/28/22 Range/Units 10:38 WBC (3.8-10.6) k/uL Hgb (13.0-17.5) gm/dL Hct (39.0-53.0) % MCV (80.0-100.0) fL Plt Count (150-450) k/uL Neutrophils # (Manual) (1.3-7.7) k/uL Lymphocytes # (1.0-4.8) k/uL ABG pH 7.23 L (7.35-7.45) ABG pCO2 31 L (35-45) mmHg ABG pO2 143 H (83-108) mmHg ABG HCO3 13 L (21-25) mmol/L ABG Total CO2 14 L (19-24) mmol/L ABG O2 Saturation 98.9 H (94-97) % Chloride (98-107) mmol/L Carbon Dioxide (22-30) mmol/L Glucose (74-99) mg/dL POC Glucose (mg/dL) (70-110) mg/dL Plasma Lactic Acid Joce (0.7-2.0) mmol/L Calcium (8.4-10.2) mg/dL Magnesium (1.6-2.3) mg/dL AST (17-59) U/L ALT (4-49) U/L Alkaline Phosphatase (38-126) U/L Troponin I (0.000-0.034) ng/mL Total Protein (6.3-8.2) g/dL Albumin (3.5-5.0) g/dL HDL Cholesterol (40.00-60.00) mg/dL Ur Specific [place] (1.001-1.035) Urine Protein (Negative) Urine Glucose (UA) (Negative) Urine Blood (Negative) Urine RBC (0-5) /hpf Urine WBC (0-5) /hpf Urine Bacteria (None) /hpf Hyaline Casts (0-2) /lpf Urine Mucus (None) /hpf
--- NOTE | 2022-01-28 11:34 | P.CNNES ---
History of Present Illness Consult date: 01/28/22 Requesting physician: Genna Terry Reason for Consult: anoxic encephalopathy History of Present Illness: This is a 61-year-old gentleman with history of known coronary artery disease with previous stenting, paroxysmal atrial fibrillation, DVT, chronic back pain, chronic gout, history of TIA in 2009, neuropathy who presented to the emergency department because of cardiac arrest at home. 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 History is obtained from medical record. It seems the patient had a cardiac arrest at home and the patient was on the floor and EMS arrived within approximately within 3 minutes of the call. Unknown exact down time. Patient was found the unresponsive as no breathing and had no pulse he was in V. fib and required 4 attempts of defibrillation, requiring epinephrine and amiodarone. His EKG showed ST segment elevation inferior myocardial infarction with underlying atrial fibrillation. The patient was taken for immediate cardiac catheterization and he was found to have significant right PDA and the patient has successful stenting of his right PDA. Since the patient has been in our facility per the nurse he continues to be intubated on a ventilator and the patient was on IV Propofol 25mcg/kg/min. Per the nurse the patient was moving spontaneously his bilateral upper extremities and moving his neck side to side but no seizure-like activity noted. Some of other workup in our facility during this admission consisted of: Initial white blood cell is 10.8 thousand and the repeat his dad 22.1 which is reactive. AST of 337 and ALT of 310. Was current AST is 847 and ALT of 6 or 7. Calcium is 8.3, magnesium is 2.5, glucose 171 Stool occult blood is positive. Review of Systems Review of system is limited with apparent positive and negative aspiration eye. Past Medical History Past Medical History: Atrial Fibrillation, Chest Pain / Angina, COPD, Deep Vein Thrombosis (DVT), GERD/Reflux, Hyperlipidemia, Hypertension, Myocardial Infarction (NC), Osteoarthritis (OA) Additional Past Medical History / Comment(s): History of hepatitis A, chronic pain, gout, "kidneys shut down x2 when sick". Back pain, TIA 2009 Last Myocardial Infarction Date:: 1999 History of Any Multi-Drug Resistant Organisms: MRSA Date of last positivie culture/infection: 2015 MDRO Source:: face MRSA Past Surgical History: Bowel Resection, Heart Catheterization With Stent, Hernia Repair, Orthopedic Surgery Additional Past Surgical History / Comment(s): Shoulder surgery, hernia, cataracts, pain clinic procedures, colostomy. right testicle removed. Past Anesthesia/Blood Transfusion Reactions: No Reported Reaction Date of Last Stent Placement:: 1999 Past Psychological History: Anxiety, Depression Smoking Status: Former smoker Past Alcohol Use History: Daily Past Drug Use History: None Reported - Past Family History Mother Family Medical History: Cancer, Myocardial Infarction (NC) Additional Family Medical History / Comment(s): Mother had unknown type of cancer. She of a NC at the age of 68yrs. Father Family Medical History: Myocardial Infarction (NC) Additional Family Medical History / Comment(s): Father from his heart "exploding" at the age of 58 yrs. Sister(s) Family Medical History: Cancer Additional Family Medical History / Comment(s): Sisters x2 Medications and Allergies Home Medications Medication Instructions Recorded Confirmed Type Furosemide [Lasix] 40 mg PO BID #60 tab 07/23/20 12/11/21 Rx Isosorbide Mononitrate ER [Imdur] 30 mg PO DAILY #30 tab 07/23/20 12/11/21 Rx Albuterol Sulfate [Ventolin HFA] 1 - 2 puff INHALATION RT-Q6H PRN 07/21/21 12/11/21 History Fluticasone/Umeclidin/Vilanter 1 puff INHALATION RT-DAILY 07/21/21 12/11/21 History [Trelegy Ellipta 100-62.5-25] Metoprolol Tartrate [Lopressor] 100 mg PO BID 12/11/21 12/11/21 History Nitroglycerin Sl Tabs [Nitrostat] 0.4 mg SL Q5M PRN 12/11/21 12/11/21 History Sertraline [Zoloft] 50 mg PO DAILY 12/11/21 12/11/21 History Aspirin 81 mg PO DAILY #90 tab 12/12/21 Rx Atorvastatin [Lipitor] 80 mg PO HS 90 Days #90 tab 12/12/21 Rx Rivaroxaban [Xarelto] 20 mg PO DAILY 30 Days #30 tab 12/12/21 Rx lisinopriL 40 mg PO DAILY 60 Days #60 tab 12/12/21 Rx Allergies Allergy/AdvReac Type Severity Reaction Status Date / Time No Known Allergies Allergy Verified 01/28/22 00:56 Physical Examination - Vital Signs Vital Signs: Vital Signs Temp Pulse Resp BP Pulse Ox FiO2 01/28/22 10:41 40 01/28/22 10:00 96 15 138/92 96 01/28/22 09:30 97 24 146/99 96 01/28/22 09:00 97 24 111/95 97 01/28/22 08:30 94 26 H 133/93 97 01/28/22 08:00 96.7 F L 92 24 126/92 96 50 01/28/22 07:30 92 24 116/95 98 01/28/22 07:19 50 01/28/22 07:00 92 24 118/84 97 50 01/28/22 06:30 89 24 123/84 97 50 01/28/22 06:00 88 24 111/79 96 50 01/28/22 05:30 84 24 113/81 93 L 50 01/28/22 05:15 88 27 H 113/77 93 L 50 01/28/22 05:00 86 24 102/69 93 L 50 01/28/22 04:45 85 24 101/69 91 L 50 01/28/22 04:30 81 24 92/65 90 L 50 01/28/22 04:15 83 21 87/59 92 L 50 01/28/22 04:00 82 20 102/71 91 L 50 01/28/22 03:46 50 01/28/22 03:45 84 21 128/80 94 L 50 01/28/22 03:30 103 H 16 150/81 92 L 50 01/28/22 03:22 50 01/28/22 03:15 98 21 137/114 92 L 50 01/28/22 01:40 103 H 24 90/60 97 01/28/22 01:30 103 H 24 108/75 97 01/28/22 01:20 99 24 117/80 98 01/28/22 01:18 98 24 124/86 97 01/28/22 01:14 93 24 130/94 99 01/28/22 01:06 85 20 126/87 100 01/28/22 00:58 94 20 151/112 100 01/28/22 00:50 100 01/28/22 00:49 97.7 F 97 20 186/129 85 L Intake and Output 01/27/22 01/28/22 01/28/22 22:59 06:59 14:59 Intake Total 1169.2 438.456 Output Total 475 215 Balance 694.2 223.456 Intake: IV 1169.2 384.6 0.9 NaCl- 369.2 384.6 Intake, IV Titration 53.856 Amount propofoL 1,000 mg In 53.856 Empty Bag 1 bag @ 5 MCG/ KG/MIN 2.654 mls/hr IV . Q24H [facility] Rx#:[id number] Output: Gastric Drainage 150 Urine 325 215 Other: Voiding Method Indwelling Catheter # Bowel Movements 2 2 Weight 92.3 kg ABP, PAP, CO, CI - Last 8 Hours Arterial Blood Pressure 148/83 Arterial Blood Pressure 134/80 Arterial Blood Pressure 131/80 Arterial Blood Pressure 124/76 Arterial Blood Pressure 116/72 Arterial Blood Pressure 117/73 Arterial Blood Pressure 112/68 Arterial Blood Pressure 102/63 Arterial Blood Pressure 114/74 Arterial Blood Pressure 111/66 Arterial Blood Pressure 105/65 Arterial Blood Pressure 93/57 Arterial Blood Pressure 90/57 Arterial Blood Pressure 93/56 Arterial Blood Pressure 112/68 Arterial Blood Pressure 165/104 GENERAL: The patient is lying in bed and does not appear in acute distress. CHEST: The heart rate is regular rate rhythm. No murmurs to auscultation. LUNG: Clear to auscultation bilaterally no wheezing noted throughout. Not labored breathing. ABDOMEN/GI: Bowel sounds present in all 4 quadrants. No tenderness to palpation throughout. NEUROLOGICAL: Higher mental function: The patient is in a comatose state GCS 6 (E1, VT1, M4). Cranial nerves: I had to manually opens his eyes. Primary gaze is midline. Pupils are pinpoint bilaterally. +ve corneal bilaterally. -ve occulocephalic reflex. NO facial weakness. Is slightly breathing over vent. Has intact gag reflex. Motor: The strength is unable to assess. But to suctioning has somewhat of lowers. Decrease tone throughout but normal bulk. . Cerebellum: Unable to assess. Sensation: Unable to assess and with painful stimuli not withdrawing. Reflexes (right/left): 0-1 throughout. Plantars are mute bilaterally. Results - Laboratory Findings CBC and BMP: 01/28/22 03:58 01/28/22 03:58 Abnormal Lab Findings: Abnormal Labs 01/28/22 01/28/22 01/28/22 00:57 00:57 00:57 WBC 10.8 H Hgb Hct MCV 107.1 H D Plt Count 149 L Neutrophils # (Manual) Lymphocytes # 7.7 H ABG pH ABG pCO2 ABG pO2 ABG HCO3 ABG Total CO2 ABG O2 Saturation Chloride 110 H Carbon Dioxide 16 L Glucose 171 H POC Glucose (mg/dL) Plasma Lactic Acid Joce 9.2 H* Calcium 8.3 L Magnesium 2.5 H AST 337 H ALT 310 H Alkaline Phosphatase Troponin I Total Protein 5.7 L Albumin 3.2 L HDL Cholesterol Ur Specific [place] Urine Protein Urine Glucose (UA) Urine Blood Urine RBC Urine WBC Urine Bacteria Hyaline Casts Urine Mucus 01/28/22 01/28/22 01/28/22 01:10 01:20 03:06 WBC Hgb Hct MCV Plt Count Neutrophils # (Manual) Lymphocytes # ABG pH 6.95 L* ABG pCO2 46 H ABG pO2 >400 H ABG HCO3 10 L* ABG Total CO2 12 L ABG O2 Saturation 99.5 H Chloride Carbon Dioxide Glucose POC Glucose (mg/dL) 207 H 199 H Plasma Lactic Acid Joce Calcium Magnesium AST ALT Alkaline Phosphatase Troponin I Total Protein Albumin HDL Cholesterol Ur Specific [place] Urine Protein Urine Glucose (UA) Urine Blood Urine RBC Urine WBC Urine Bacteria Hyaline Casts Urine Mucus 01/28/22 01/28/22 01/28/22 03:44 03:58 03:58 WBC Hgb Hct MCV Plt Count Neutrophils # (Manual) Lymphocytes # ABG pH 7.17 L* ABG pCO2 ABG pO2 ABG HCO3 14 L ABG Total CO2 16 L ABG O2 Saturation Chloride Carbon Dioxide Glucose POC Glucose (mg/dL) Plasma Lactic Acid Joce Calcium Magnesium AST ALT Alkaline Phosphatase Troponin I 1.230 H* Total Protein Albumin HDL Cholesterol 39.90 L Ur Specific [place] Urine Protein Urine Glucose (UA) Urine Blood Urine RBC Urine WBC Urine Bacteria Hyaline Casts Urine Mucus 01/28/22 01/28/22 01/28/22 03:58 03:58 03:58 WBC 22.1 H Hgb 17.6 H Hct 55.3 H MCV 103.4 H Plt Count Neutrophils # (Manual) 19.40 H Lymphocytes # ABG pH ABG pCO2 ABG pO2 ABG HCO3 ABG Total CO2 ABG O2 Saturation Chloride 113 H Carbon Dioxide 14 L Glucose 194 H POC Glucose (mg/dL) Plasma Lactic Acid Joce 5.0 H* Calcium 7.8 L Magnesium 2.5 H AST 847 H ALT 636 H Alkaline Phosphatase 162 H Troponin I Total Protein Albumin HDL Cholesterol Ur Specific [place] Urine Protein Urine Glucose (UA) Urine Blood Urine RBC Urine WBC Urine Bacteria Hyaline Casts Urine Mucus 01/28/22 01/28/22 01/28/22 05:10 06:52 06:52 WBC Hgb Hct MCV Plt Count Neutrophils # (Manual) Lymphocytes # ABG pH ABG pCO2 ABG pO2 ABG HCO3 ABG Total CO2 ABG O2 Saturation Chloride Carbon Dioxide Glucose POC Glucose (mg/dL) Plasma Lactic Acid Joce 3.4 H* Calcium Magnesium AST ALT Alkaline Phosphatase Troponin I 1.550 H* Total Protein Albumin HDL Cholesterol Ur Specific [place] 1.050 H Urine Protein 2+ H Urine Glucose (UA) Trace H Urine Blood Large H Urine RBC 20 H Urine WBC 12 H Urine Bacteria Occasional H Hyaline Casts 3 H Urine Mucus Occasional H 01/28/22 10:38 WBC Hgb Hct MCV Plt Count Neutrophils # (Manual) Lymphocytes # ABG pH 7.23 L ABG pCO2 31 L ABG pO2 143 H ABG HCO3 13 L ABG Total CO2 14 L ABG O2 Saturation 98.9 H Chloride Carbon Dioxide Glucose POC Glucose (mg/dL) Plasma Lactic Acid Joce Calcium Magnesium AST ALT Alkaline Phosphatase Troponin I Total Protein Albumin HDL Cholesterol Ur Specific [place] Urine Protein Urine Glucose (UA) Urine Blood Urine RBC Urine WBC Urine Bacteria Hyaline Casts Urine Mucus Assessment and Plan Assessment: Anoxic encephalopathy due to cardiac arrest. Has also component of metabolic/electrolyte derangement and sedation that affect his cognition/neurological status Acute cardiac arrest out of the hospital. Unknown exact downtown. Patient was in V. fib and required epinephrine, amiodarone and CPR with 4 defibrillation Acute inferior wall ST segment elevation NC status post cardiac cath of the PDA Proximal atrial fibrillation currently in sinus rhythm History of coronary artery disease status post stenting of the right ICA Previous TIA in 2009 Chronic gout Hepatitis A History of diverticular perforation/colostomy History of DVT Chronic back pain Plan: I ordered a stat CT of the head We'll pursue with a EEG. Q2 hour neuro checks. Ordered ammonia level. We'll defer the rest of the medical management to the cardiology primary and ICU team Condition is very guarded at this time. The plan was discussed with the patient's nurse. Thank you for the consultation. J Luis Vila M.D. Neuro-hospitalist Time with Patient: Greater than 30
[2022-01-28 11:42] LABS: Glucose,Whole Blood 184 mg/dL (70-110)
--- NOTE | 2022-01-28 11:44 | CT ---
EXAMINATION TYPE: CT brain wo con CT DLP: 1165.4 mGycm, Automated exposure control for dose reduction was used. DATE OF EXAM: 01/28/2022 11:13 AM COMPARISON: Prior CT Brain from 03/12/2019 CLINICAL INDICATION:Male, 61 years old with history of altered mental status. Post cardiac arrest. TECHNIQUE: Brain: Multiple axial CT images of the brain were obtained without IV contrast. FINDINGS: Brain: Extra-axial spaces: No abnormal extra-axial fluid collections. Ventricular system: Within normal limits Cerebral parenchyma: No acute intraparenchymal hemorrhage or mass effect. The dodson-white junction is well differentiated. Cerebellum: Unremarkable. Mass effect: No evidence of midline shift. Intracranial vasculature: Atherosclerotic calcifications of the intracranial vessels. Soft tissues: Normal. Calvarium/osseous structures: No depressed skull fracture. Paranasal sinuses and mastoid air cells: Mild scattered paranasal sinus disease. Visualized orbits: Bilateral aphakia IMPRESSION: No evidence for acute/subacute CVA.
--- NOTE | 2022-01-28 12:12 | P.PCN ---
Date of Procedure: 01/28/22 Preoperative Diagnosis: Cardiac arrest Postoperative Diagnosis: Cardiac arrest Procedure(s) Performed: Insertion of a triple-lumen catheter and a arterial line Anesthesia: local Surgeon: David Lassiter Pathology: other Condition: critical Disposition: ICU Operative Findings: Indication: Hemodynamic monitoring/Intravenous access. A time-out was completed verifying correct patient, procedure, site, positioning, and implant(s) or special equipment if applicable. The patient was placed in a dependent position appropriate for central line placement based on the vein to be cannulated. The patients left shoulder was prepped and draped in sterile fashion. 1% Lidocaine was used to anesthetize the surrounding skin area. A triple lumen 9F Cordis catheter was introduced into the left subclavian vein using Seldinger technique. The catheter was threaded smoothly over the guide wire and appropriate blood return was obtained. Each lumen of the catheter was evacuated of air and flushed with sterile saline. The catheter was then sutured in place to the skin and a sterile dressing applied. Perfusion to the extremity distal to the point of catheter insertion was checked and found to be adequate. The patient tolerated the procedure well and there were no complications. Indication: Hemodynamic monitoring. A time-out was completed verifying correct patient, procedure, site, positioning, and implant(s) or special equipment if applicable. Allens test was performed to ensure adequate perfusion. The patients left wrist was prepped and draped in sterile fashion. 1% Lidocaine was used to anesthetize the area. An 18G Arrow arterial line was introduced into the left radial artery. The catheter was threaded over the guide wire and the needle was removed with appropriate pulsatile blood return. Blood loss was minimal. The catheter was then sutured in place to the skin and a sterile dressing applied. Perfusion to the extremity distal to the point of catheter insertion was checked and found to be adequate. The patient tolerated the procedure well and there were no complications.
[2022-01-28] MEDS: SODIUM CHLORIDE 0.9% 1,000 ML IV SCH ×2 (12:23→23:53)
[2022-01-28] MEDS: INSULIN ASPART (NovoLOG) 100 UNIT/ML VIAL SQ SCH ×3 (12:24→23:51)
--- NOTE | 2022-01-28 12:26 | XR ---
EXAMINATION TYPE: XR chest 1V portable DATE OF EXAM: 01/28/2022 12:17 PM COMPARISON: Chest radiographs from earlier in the day. TECHNIQUE: XR chest 1V portable Portable AP radiograph of the chest.. CLINICAL INDICATION:Male, 61 years old with history of central line placement; FINDINGS: Lungs/Pleura: Improved aeration of the lungsThere is no evidence of pleural effusion, focal consolida tion, or pneumothorax. Pulmonary vascularity: Decreasing suggested pulmonary vascular congestion. Heart/mediastinum: Cardiomediastinal silhouette is prominent in size. Musculoskeletal: No acute osseous pathology. Lines/Tubes: Endotracheal tube with distal tip 6.7 cm above the mini Nasogastric tube with its side-port projecting over the distal esophagus. Interval placement Left internal jugular central venous catheter with distal tip at the cavoatrial ju nction. No evidence of pneumothorax. IMPRESSION: 1. Interval placement of left central venous catheter tip in appropriate position. 2. Nasogastric tube side-port project over the distal esophagus consider advancement of 8 cm for opt imal placement. 3. Improved aeration of the lungs on this exam.
[2022-01-28 13:52] LABS: Lactic Acid, Venous 3.7 mmol/L (0.7-2.0)
[2022-01-28] MEDS: MORPHINE SULFATE 4 MG/ML SYRINGE IVP PRN ×2 (15:05→18:40)
--- NOTE | 2022-01-28 16:38 | XR ---
EXAMINATION TYPE: XR chest 1V portable DATE OF EXAM: 01/28/2022 COMPARISON: Today HISTORY: Follow-up line placement TECHNIQUE: FINDINGS: There is endotracheal tube 5 cm from the mini. There is left subclavian catheter with tip in the larsen perior vena cava. There is nasogastric tube in the stomach. Lungs are clear of infiltrate. No heart f ailure. There are no hilar masses. IMPRESSION: No active cardiopulmonary disease. No change
[2022-01-28 18:17] LABS: Glucose,Whole Blood 163 mg/dL (70-110)
[2022-01-28] MEDS: NOREPINEPHRINE 4 MG in SODIUM CHLORIDE 0.9% 250 ML IV SCH (19:40)
[2022-01-28] MEDS: ATORVASTATIN 80 MG TAB PO SCH (20:01)
[2022-01-28 23:44] LABS: Glucose,Whole Blood 118 mg/dL (70-110)
[2022-01-29] MEDS ORDERED: ACETAMINOPHEN IV (For NPO) 1,000 MG in EMPTY BAG 1 BAG IVPB PRN (04:52)
[2022-01-29] MEDS: MORPHINE SULFATE 4 MG/ML SYRINGE IVP PRN ×3 (05:05→16:31)
[2022-01-29 05:17] LABS: ABG HCO3 11 mmol/L (21-25); ABG Oxygen Saturation 95.5 % (94-97); ABG PCO2 35 mmHg (35-45); ABG PO2 96 mmHg (83-108); ABG TCO2 12 mmol/L (19-24)
[2022-01-29 05:19] LABS: Calcium 7.2 mg/dL (8.4-10.2); Potassium 5.8 mmol/L (3.5-5.1); Total Bilirubin 0.7 mg/dL (0.2-1.3); Total Protein 5.7 g/dL (6.3-8.2)
[2022-01-29 05:20] LABS: ABG PH 7.09 (7.35-7.45); Allen Test Performed? no
[2022-01-29] MEDS ORDERED: SODIUM BICARB 8.4% 50 ML SYR (1 MEQ/ML) IV STA (05:35)
[2022-01-29 05:51] LABS: Glucose,Whole Blood 138 mg/dL (70-110)
[2022-01-29 05:52] LABS: HCT 53.7 % (39.0-53.0); Hypochromasia Marked; MCH 33.8 pg (25.0-35.0); MCHC 31.7 g/dL (31.0-37.0); MCV 106.6 fL (80.0-100.0); Macrocytosis Moderate; Mean Platelet Volume 10.2; Platelet Count 217 k/uL (150-450); RBC 5.04 m/uL (4.30-5.90); RDW 13.9 % (11.5-15.5); WBC 21.5 k/uL (3.8-10.6)
[2022-01-29] MEDS: INSULIN ASPART (NovoLOG) 100 UNIT/ML VIAL SQ SCH ×3 (05:53→17:55)
[2022-01-29 05:57] LABS: INR 1.2 (<1.2); Prothrombin Time 12.8 sec (9.0-12.0)
[2022-01-29] MEDS: DEXTROSE 5% IN WATER 1,000 ML with SODIUM BICARB (1 MEQ/ML) 150 ML IV SCH ×3 (06:15→23:52)
[2022-01-29 06:26] LABS: Band Neutrophils % 23 %; Lymphocytes # (M) 1.94 k/uL (1.0-4.8); Monocytes # (M) 0.86 k/uL (0-1.0); Neutrophils % (M) 64 %; Nucleated Red Blood Cells 0 /100 WBC (0-0); Total Cells Counted 100
[2022-01-29] MEDS ORDERED: propofoL 100 ML IV ONE (06:54)
--- NOTE | 2022-01-29 07:31 | XR ---
EXAMINATION TYPE: XR chest 1V portable DATE OF EXAM: 01/29/2022 5:39 AM COMPARISON: Chest radiograph from one day prior. TECHNIQUE: XR chest 1V portable Portable AP radiograph of the chest.. CLINICAL INDICATION:Male, 61 years old with history of Tube placement; FINDINGS: Lungs/Pleura: There is no evidence of pleural effusion, focal consolidation, or pneumothorax. Pulmonary vascularity: Unremarkable. Heart/mediastinum: Cardiomediastinal silhouette is unremarkable. Musculoskeletal: No acute osseous pathology. Other findings: None Lines/Tubes: Endotracheal tube with distal tip 5.0 cm above the mini Nasogastric tube with its distal tip and side-port projecting under the diaphragm. Left internal jugular central venous catheter with distal tip at the superior vena cava . IMPRESSION: 1. Support lines and tubes in appropriate position. 2. No acute cardiopulmonary disease/process.
[2022-01-29] MEDS: NOREPINEPHRINE 4 MG in SODIUM CHLORIDE 0.9% 250 ML IV SCH ×2 (08:28→09:56)
[2022-01-29] MEDS: SODIUM CHLORIDE 0.9% 1,000 ML in EMPTY BAG 1 BAG IV SCH (08:29)
[2022-01-29] MEDS: ASPIRIN 81 MG PO SCH (09:05)
[2022-01-29] MEDS: CLOPIDOGREL 75 MG TAB PO SCH (09:05)
[2022-01-29] MEDS: FAMOTIDINE 20 MG/2 ML VIAL IV SCH (09:05)
[2022-01-29] MEDS: METOPROLOL TARTRATE 25 MG TAB PO SCH ×2 (09:05→20:12)
[2022-01-29] MEDS: CHLORHEXIDINE GLUCONATE 15 ML CUP MUCOUS MEM SCH ×2 (09:05→20:12)
[2022-01-29] MEDS: SODIUM CHLORIDE 0.9% 1,000 ML IV SCH ×2 (09:06→17:13)
--- NOTE | 2022-01-29 09:18 | P.PN ---
Subjective Progress Note Date: 01/29/22 PROGRESS NOTE The patient is a 61-year-old male with a known history of CAD, chronic tobacco use, paroxysmal atrial fibrillation who presented with cardiac arrest and ventricular fibrillation per EMS requiring cardioversion 4. On his initial EKG he was in atrial fibrillation with ST segment elevation inferiorly and underwent stenting of his right PDA. He continues to be intubated, in sinus mechanism with improvement in his ST elevation. He is on no vasopressor. His urinary output is stable. He has no evidence of recurrent ventricular tachycardia. In the past his left ventricle systolic function was normal. January 29: The patient remains intubated in sinus tachycardia. There is no evidence of ventricular ectopic activity. He was febrile earlier. He remains sedated. He had some movement of his arms yesterday. He has an elevation of his liver function test as well as worsening of his renal functions. His urine output is low but stable. His blood pressure has been stable. He has no further ventricle tachycardia. He is acidotic and being started on sodium bicarb drip. He underwent placement of an art line and triple lumen yesterday. Medications: Aspirin, Lipitor 80 mg daily, Plavix 75 mg daily, Zestril 2.5 milligrams daily, metoprolol 25 mg twice a day PHYSICAL EXAMINATION: Blood pressure 118/70 heart rate 110 afebrile now, was up to 100.5 LUNGS: Clear to auscultation anteriorly, no wheezes HEART: Regular rate and rhythm, S1, S2. No S3. No systolic murmur ABDOMEN: Soft, nontender, no organomegaly EXTREMETIES: No edema. Intubated and sedated LAB: Blood cell 21.5, hemoglobin 17, pH 7.09, pCO2 35, pO2 96. Potassium 5.8, BUN 33, creatinine 2.1. AST 2934 and ALT 2976. IMPRESSION: 1. Acute cardiac arrest with ventricular fibrillation status post cardioversion. Continues to be in sinus mechanism 2. Evidence of acute inferior myocardial infarction on admission with stenting of the PDA patent stent in the mid RCA 3. Prior history of paroxysmal atrial fibrillation 4. History of hyperlipidemia 5. Rule out anoxic encephalopathy 6. Chronic tobacco use 7. Worsening liver functions 8. Prior history of DVT 9. Fever possible aspiration pneumonia 10. Acute renal injury PLAN: 1. Stop Zestril 2. Echocardiogram with Doppler 3. Follow renal function and liver function test 4. Sodium bicarb drip 5. Prognosis is guarded. Objective - Vital Signs Vital signs: Vital Signs Temp 98.3 F 01/29/22 08:00 Pulse 118 H 01/29/22 09:00 Resp 32 H 01/29/22 09:00 BP 118/70 01/29/22 09:00 Pulse Ox 95 01/29/22 09:00 FiO2 60 01/29/22 08:00 Intake & Output 01/28/22 01/29/22 01/29/22 18:59 06:59 18:59 Intake Total 2530.944 3153.980 900 Output Total 625 245 30 Balance 457.333 8621.980 870 Weight 92.3 kg 88.4 kg Intake: IV 1184.6 1300 600 0.9 NaCl- 1184.6 1200 300 ACETAMINOPHEN IV (For NPO 100 ) 1,000 mg In Empty Bag 1 bag @ 400 mls/hr IVPB Q6HR PRN Rx#:[id number] Sodium Bicarbonate 200 infusion Sodium bicarbonate IV 100 push Intake, IV Titration 158.500 321.980 300 Amount Dextrose 5% in Water 1, 200 000 ml @ 100 mls/hr IV . [id number] [facility] with Sodium Bicarb (1 Meq/ml) 150 ml Rx#:[id number] Norepinephrine 4 mg In 115.755 Sodium Chloride 0.9% 250 ml @ 0.05 MCG/KG/MIN 17. 583 mls/hr IV .[id number] [facility] Rx#:[id number] propofoL 1,000 mg In 158.500 206.225 100 Empty Bag 1 bag @ 5 MCG/ KG/MIN 2.654 mls/hr IV . Q24H [facility] Rx#:[id number] Output: Urine 625 245 30 Other: Voiding Method Indwelling Catheter Indwelling Catheter # Bowel Movements 2 ABP, PAP, CO, CI - Last Documented Arterial Blood Pressure 147/63 - Labs CBC & Chem 7: 01/29/22 04:55 01/29/22 04:55 Labs: Abnormal Lab Results - Last 24 Hours (Table) 01/28/22 01/28/22 01/28/22 Range/Units 03:58 10:38 10:47 WBC (3.8-10.6) k/uL Hct (39.0-53.0) % MCV (80.0-100.0) fL Neutrophils # (Manual) (1.3-7.7) k/uL PT (9.0-12.0) sec INR (<1.2) ABG pH 7.23 L (7.35-7.45) ABG pCO2 31 L (35-45) mmHg ABG pO2 143 H (83-108) mmHg ABG HCO3 13 L (21-25) mmol/L ABG Total CO2 14 L (19-24) mmol/L ABG O2 Saturation 98.9 H (94-97) % Potassium (3.5-5.1) mmol/L Chloride (98-107) mmol/L Carbon Dioxide (22-30) mmol/L BUN (9-20) mg/dL Creatinine (0.66-1.25) mg/dL Glucose (74-99) mg/dL POC Glucose (mg/dL) (70-110) mg/dL Plasma Lactic Acid Joce 3.7 H* (0.7-2.0) mmol/L Calcium (8.4-10.2) mg/dL AST (17-59) U/L ALT (4-49) U/L Alkaline Phosphatase (38-126) U/L Total Protein (6.3-8.2) g/dL Albumin (3.5-5.0) g/dL HDL Cholesterol 39.90 L (40.00-60.00) mg/dL 01/28/22 01/28/22 01/28/22 Range/Units 11:39 13:27 16:00 WBC (3.8-10.6) k/uL Hct (39.0-53.0) % MCV (80.0-100.0) fL Neutrophils # (Manual) (1.3-7.7) k/uL PT (9.0-12.0) sec INR (<1.2) ABG pH (7.35-7.45) ABG pCO2 (35-45) mmHg ABG pO2 (83-108) mmHg ABG HCO3 (21-25) mmol/L ABG Total CO2 (19-24) mmol/L ABG O2 Saturation (94-97) % Potassium (3.5-5.1) mmol/L Chloride (98-107) mmol/L Carbon Dioxide (22-30) mmol/L BUN (9-20) mg/dL Creatinine (0.66-1.25) mg/dL Glucose (74-99) mg/dL POC Glucose (mg/dL) 184 H (70-110) mg/dL Plasma Lactic Acid Joce 3.7 H* 6.0 H* (0.7-2.0) mmol/L Calcium (8.4-10.2) mg/dL AST (17-59) U/L ALT (4-49) U/L Alkaline Phosphatase (38-126) U/L Total Protein (6.3-8.2) g/dL Albumin (3.5-5.0) g/dL HDL Cholesterol (40.00-60.00) mg/dL 01/28/22 01/28/22 01/28/22 Range/Units 18:14 19:45 23:39 WBC (3.8-10.6) k/uL Hct (39.0-53.0) % MCV (80.0-100.0) fL Neutrophils # (Manual) (1.3-7.7) k/uL PT (9.0-12.0) sec INR (<1.2) ABG pH (7.35-7.45) ABG pCO2 (35-45) mmHg ABG pO2 (83-108) mmHg ABG HCO3 (21-25) mmol/L ABG Total CO2 (19-24) mmol/L ABG O2 Saturation (94-97) % Potassium (3.5-5.1) mmol/L Chloride (98-107) mmol/L Carbon Dioxide (22-30) mmol/L BUN (9-20) mg/dL Creatinine (0.66-1.25) mg/dL Glucose (74-99) mg/dL POC Glucose (mg/dL) 163 H 118 H (70-110) mg/dL Plasma Lactic Acid Joce 4.2 H* (0.7-2.0) mmol/L Calcium (8.4-10.2) mg/dL AST (17-59) U/L ALT (4-49) U/L Alkaline Phosphatase (38-126) U/L Total Protein (6.3-8.2) g/dL Albumin (3.5-5.0) g/dL HDL Cholesterol (40.00-60.00) mg/dL 07/11/1701/29/22 01/29/22 Range/Units 03:02 04:55 04:55 WBC 21.5 H (3.8-10.6) k/uL Hct 53.7 H (39.0-53.0) % MCV 106.6 H (80.0-100.0) fL Neutrophils # (Manual) 18.70 H (1.3-7.7) k/uL PT 12.8 H (9.0-12.0) sec INR 1.2 H (<1.2) ABG pH (7.35-7.45) ABG pCO2 (35-45) mmHg ABG pO2 (83-108) mmHg ABG HCO3 (21-25) mmol/L ABG Total CO2 (19-24) mmol/L ABG O2 Saturation (94-97) % Potassium (3.5-5.1) mmol/L Chloride (98-107) mmol/L Carbon Dioxide (22-30) mmol/L BUN (9-20) mg/dL Creatinine (0.66-1.25) mg/dL Glucose (74-99) mg/dL POC Glucose (mg/dL) (70-110) mg/dL Plasma Lactic Acid Joce 3.1 H* (0.7-2.0) mmol/L Calcium (8.4-10.2) mg/dL AST (17-59) U/L ALT (4-49) U/L Alkaline Phosphatase (38-126) U/L Total Protein (6.3-8.2) g/dL Albumin (3.5-5.0) g/dL HDL Cholesterol (40.00-60.00) mg/dL 01/29/22 01/29/22 01/29/22 Range/Units 04:55 05:15 05:48 WBC (3.8-10.6) k/uL Hct (39.0-53.0) % MCV (80.0-100.0) fL Neutrophils # (Manual) (1.3-7.7) k/uL PT (9.0-12.0) sec INR (<1.2) ABG pH 7.09 L* (7.35-7.45) ABG pCO2 (35-45) mmHg ABG pO2 (83-108) mmHg ABG HCO3 11 L (21-25) mmol/L ABG Total CO2 12 L (19-24) mmol/L ABG O2 Saturation (94-97) % Potassium 5.8 H (3.5-5.1) mmol/L Chloride 122 H (98-107) mmol/L Carbon Dioxide 11 L (22-30) mmol/L BUN 33 H (9-20) mg/dL Creatinine 2.13 H (0.66-1.25) mg/dL Glucose 139 H (74-99) mg/dL POC Glucose (mg/dL) 138 H (70-110) mg/dL Plasma Lactic Acid Joce (0.7-2.0) mmol/L Calcium 7.2 L (8.4-10.2) mg/dL AST 2934 H (17-59) U/L ALT 2976 H (4-49) U/L Alkaline Phosphatase 147 H (38-126) U/L Total Protein 5.7 L (6.3-8.2) g/dL Albumin 3.0 L (3.5-5.0) g/dL HDL Cholesterol (40.00-60.00) mg/dL Microbiology - Last 24 Hours (Table) 01/28/22 03:20 Gram Stain - Preliminary Sputum Sputum Culture - Preliminary 01/28/22 05:10 Urine Culture - Preliminary Urine,Voided
[2022-01-29] MEDS: PIPERACILLIN-TAZOBACTAM 3.375 GM in SODIUM CHLORIDE 0.9% 100 ML IVPB SCH ×2 (10:41→20:13)
--- NOTE | 2022-01-29 11:54 | P.PN ---
Subjective Progress Note Date: 01/29/22 The patient is seen at bedside and per nurse no change. No clinical seizures noted. He is on IV Propofol 45mcg/kg/min. Continues to be intubated and on ventilator. Objective - Vital Signs Vital signs: Vital Signs Temp 98.3 F 01/29/22 08:00 Pulse 112 H 01/29/22 11:30 Resp 24 01/29/22 11:30 BP 110/62 01/29/22 11:30 Pulse Ox 95 01/29/22 10:00 FiO2 60 01/29/22 10:51 Intake & Output 01/28/22 01/29/22 01/29/22 18:59 06:59 18:59 Intake Total 5245.678 1786.980 1588.015 Output Total 625 245 55 Balance 839.265 9463.980 1533.015 Weight 92.3 kg 88.4 kg Intake: IV 1184.6 1300 800 0.9 NaCl- 1184.6 1200 500 ACETAMINOPHEN IV (For NPO 100 ) 1,000 mg In Empty Bag 1 bag @ 400 mls/hr IVPB Q6HR PRN Rx#:[id number] Sodium Bicarbonate 200 infusion Sodium bicarbonate IV 100 push Intake, IV Titration 158.500 321.980 728.015 Amount Dextrose 5% in Water 1, 450 000 ml @ 150 mls/hr IV . Q7H40M [facility] with Sodium Bicarb (1 Meq/ml) 150 ml Rx#:[id number] Norepinephrine 4 mg In 115.755 Sodium Chloride 0.9% 250 ml @ 0.05 MCG/KG/MIN 17. 583 mls/hr IV .[id number] [facility] Rx#:[id number] Piperacillin-Tazobactam 3 100 .375 gm In Sodium Chloride 0.9% 100 ml @ 25 mls/hr IVPB Q12HR [facility] Rx #:[id number] propofoL 1,000 mg In 158.500 206.225 178.015 Empty Bag 1 bag @ 5 MCG/ KG/MIN 2.654 mls/hr IV . Q24H [facility] Rx#:[id number] Other 60 Output: Urine 625 245 55 Other: Voiding Method Indwelling Catheter Indwelling Catheter # Bowel Movements 2 ABP, PAP, CO, CI - Last Documented Arterial Blood Pressure 113/57 - Exam GENERAL: The patient is lying in bed and does not appear in acute distress. LUNG: Intubated on ventilator. NEUROLOGICAL: Limited: IV Propofol 45mcg/kg/min and received Morphine 2.5 hours prior to exam ining him. Higher mental function: The patient is in a comatose state GCS 3 (E1, VT1, M1). Cranial nerves: I had to manually opens his eyes. Primary gaze is midline. Pupils are pinpoint bilaterally. Could not appreciate corneals bilaterally. - ve occulocephalic reflex. NO facial weakness and grimaces faces to suctioning.. Is slightly breathing over vent. Has weak gag reflex. Motor: The strength is unable to assess. But to suctioning has somewhat of lowers. Decrease tone throughout but normal bulk. . Cerebellum: Unable to assess. Sensation: Unable to assess and with painful stimuli not withdrawing. Reflexes (right/left): 0-1 throughout. Plantars are mute bilaterally. Patient liver function is trending up AST currently eats 2934 Y ALT is 2976. Ammonia level is 10. CT of the head is reported as no evidence of for acute subacute CVA. I personally reviewed the CT of the head and there is no acute intracranial process seen at this time. There is no bleeding. There is no mass effect and was able to appreciate that. - Labs CBC & Chem 7: 01/29/22 04:55 01/29/22 04:55 Labs: Abnormal Lab Results - Last 24 Hours (Table) 01/28/22 01/28/22 01/28/22 Range/Units 13:27 16:00 18:14 WBC (3.8-10.6) k/uL Hct (39.0-53.0) % MCV (80.0-100.0) fL Neutrophils # (Manual) (1.3-7.7) k/uL PT (9.0-12.0) sec INR (<1.2) ABG pH (7.35-7.45) ABG HCO3 (21-25) mmol/L ABG Total CO2 (19-24) mmol/L Potassium (3.5-5.1) mmol/L Chloride (98-107) mmol/L Carbon Dioxide (22-30) mmol/L BUN (9-20) mg/dL Creatinine (0.66-1.25) mg/dL Glucose (74-99) mg/dL POC Glucose (mg/dL) 163 H (70-110) mg/dL Plasma Lactic Acid Joce 3.7 H* 6.0 H* (0.7-2.0) mmol/L Calcium (8.4-10.2) mg/dL AST (17-59) U/L ALT (4-49) U/L Alkaline Phosphatase (38-126) U/L Total Protein (6.3-8.2) g/dL Albumin (3.5-5.0) g/dL 01/28/22 01/28/22 01/29/22 Range/Units 19:45 23:39 03:02 WBC (3.8-10.6) k/uL Hct (39.0-53.0) % MCV (80.0-100.0) fL Neutrophils # (Manual) (1.3-7.7) k/uL PT (9.0-12.0) sec INR (<1.2) ABG pH (7.35-7.45) ABG HCO3 (21-25) mmol/L ABG Total CO2 (19-24) mmol/L Potassium (3.5-5.1) mmol/L Chloride (98-107) mmol/L Carbon Dioxide (22-30) mmol/L BUN (9-20) mg/dL Creatinine (0.66-1.25) mg/dL Glucose (74-99) mg/dL POC Glucose (mg/dL) 118 H (70-110) mg/dL Plasma Lactic Acid Joce 4.2 H* 3.1 H* (0.7-2.0) mmol/L Calcium (8.4-10.2) mg/dL AST (17-59) U/L ALT (4-49) U/L Alkaline Phosphatase (38-126) U/L Total Protein (6.3-8.2) g/dL Albumin (3.5-5.0) g/dL 01/29/22 01/29/22 01/29/22 Range/Units 04:55 04:55 04:55 WBC 21.5 H (3.8-10.6) k/uL Hct 53.7 H (39.0-53.0) % MCV 106.6 H (80.0-100.0) fL Neutrophils # (Manual) 18.70 H (1.3-7.7) k/uL PT 12.8 H (9.0-12.0) sec INR 1.2 H (<1.2) ABG pH (7.35-7.45) ABG HCO3 (21-25) mmol/L ABG Total CO2 (19-24) mmol/L Potassium 5.8 H (3.5-5.1) mmol/L Chloride 122 H (98-107) mmol/L Carbon Dioxide 11 L (22-30) mmol/L BUN 33 H (9-20) mg/dL Creatinine 2.13 H (0.66-1.25) mg/dL Glucose 139 H (74-99) mg/dL POC Glucose (mg/dL) (70-110) mg/dL Plasma Lactic Acid Joce (0.7-2.0) mmol/L Calcium 7.2 L (8.4-10.2) mg/dL AST 2934 H (17-59) U/L ALT 2976 H (4-49) U/L Alkaline Phosphatase 147 H (38-126) U/L Total Protein 5.7 L (6.3-8.2) g/dL Albumin 3.0 L (3.5-5.0) g/dL 01/29/22 01/29/22 Range/Units 05:15 05:48 WBC (3.8-10.6) k/uL Hct (39.0-53.0) % MCV (80.0-100.0) fL Neutrophils # (Manual) (1.3-7.7) k/uL PT (9.0-12.0) sec INR (<1.2) ABG pH 7.09 L* (7.35-7.45) ABG HCO3 11 L (21-25) mmol/L ABG Total CO2 12 L (19-24) mmol/L Potassium (3.5-5.1) mmol/L Chloride (98-107) mmol/L Carbon Dioxide (22-30) mmol/L BUN (9-20) mg/dL Creatinine (0.66-1.25) mg/dL Glucose (74-99) mg/dL POC Glucose (mg/dL) 138 H (70-110) mg/dL Plasma Lactic Acid Joce (0.7-2.0) mmol/L Calcium (8.4-10.2) mg/dL AST (17-59) U/L ALT (4-49) U/L Alkaline Phosphatase (38-126) U/L Total Protein (6.3-8.2) g/dL Albumin (3.5-5.0) g/dL Microbiology - Last 24 Hours (Table) 01/28/22 03:20 Gram Stain - Preliminary Sputum Sputum Culture - Preliminary 01/28/22 05:10 Urine Culture - Preliminary Urine,Voided Assessment and Plan Assessment: Anoxic encephalopathy due to cardiac arrest. Has also component of metabolic/electrolyte derangement and sedation that affect his cognition/neurological status Acute cardiac arrest out of the hospital. Unknown exact downtown. Patient was in V. fib and required epinephrine, amiodarone and CPR with 4 defibrillation Acute inferior wall ST segment elevation NM status post cardiac cath of the PDA Hepatic shock due to cardiac arrest---trending up Proximal atrial fibrillation currently in sinus rhythm History of coronary artery disease status post stenting of the right ICA Previous TIA in 2009 Chronic gout Hepatitis A History of diverticular perforation/colostomy History of DVT Chronic back pain Plan: We'll pursue with a EEG. Q2 hour neuro checks. We'll defer the rest of the medical management to the cardiology primary and ICU team Condition is very guarded at this time. Hopefully down the line patient will be off sedation for at least 24-40 hours and will have a better neurological examination. The plan was discussed with the patient's nurse. J Luis Vila M.D. Neuro-hospitalist Time with Patient: Less than 30
[2022-01-29 12:11] LABS: Glucose,Whole Blood 135 mg/dL (70-110)
[2022-01-29 12:14] LABS: ABG Base Excess -10.3 mmol/L; ABG HCO3 16 mmol/L (21-25); ABG Oxygen Saturation 97.5 % (94-97); ABG PCO2 32 mmHg (35-45); ABG PH 7.31 (7.35-7.45); ABG PO2 96 mmHg (83-108); ABG TCO2 17 mmol/L (19-24)
[2022-01-29 12:16] LABS: Allen Test Performed? no
--- NOTE | 2022-01-29 12:36 | EEG ---
ELECTROENCEPHALOGRAM REPORT DATE OF SERVICE: 01/29/2022 CLINICAL HISTORY: This is a 61-year-old gentleman with cardiac arrest who has altered mental status. The video EEG is obtained to evaluate for seizure epileptiform activity. Relevant medications are IV propofol and morphine. EEG TYPE: A routine 21-channel EEG is performed with video using the 10/20 electrode placement system. DESCRIPTION: The patient is intubated on a ventilator. The background consists of 8 to 9 hertz activity that is poorly modulated, poorly sustained, intermixed with theta activity. There was no physiological sleep architecture. There is no focal slowing. Interictal and ictal is none. ACTIVATION PROCEDURE: Photic stimulation did not evoke a posterior driving response. There is no abnormality during the photic stimulation. Hyperventilation was not performed. CLINICAL INTERPRETATION: This is an abnormal routine EEG. The background slowing is suggestive of mild encephalopathy. Otherwise there is no focal slowing, epileptiform discharges or seizure on the EEG. Clinical correlation is recommended. MMAMERICA / NIDHIN: [id number] / MTDD
--- NOTE | 2022-01-29 13:04 | P.PN ---
Subjective Progress Note Date: 01/29/22 61-year-old male patient was brought into the hospital after he sustained a cardiac arrest at home. The patient apparently was in V. fib arrest. His have coronary artery disease. The patient also is known to have paroxysmal atrial fibrillation. Family found the patient collapsed on the floor and EMS arrived within 3 minutes after the call. The patient was found to be unresponsive. His breathing was agonal. He had no pulse. He was in V. fib. He required 4 attempts of atrial fibrillation. He was given epinephrine 4 rounds a total of 4 mg and he was also given amiodarone. He was brought into the emergency and initial blood pressure was 186/129. The patient's EKG showed ST segment elevati on inferior wall myocardial infarction along with underlying atrial fibrillation. The patient was taken for immediate cardiac catheterization and the patient was found to have significant disease in the right PDA, patent stent in the mid RCA, mild disease in the left circumflex and RCA, successful stenting of the right PDA was done without any issues. The patient's LAD and left main had some minimal disease without any high-grade stenosis. The PDA had 80-85% lesion and appropriate stenting was done. The patient was started on aspirin and Plavix. The patient was kept intubated on was brought into the intensive care unit. This morning, the patient is sedated and he is on propofol at the rate of 25 mcg/kg per minute and is adequately sedated without any issues. He is quite successful mechanical ventilator. He is currently on assist control mode at the rate of 24 with a tidal volume of 500 and FiO2 of 50% with a PEEP of 5. His cardiac rhythm is sinus at this point in time. His chest x-ray is showing adequate expansion for both lungs. ET tube is in a good location. No airspace disease or pulmonary infiltrates. There is some mild cardiomegaly noted on the chest x-ray. The patient's blood gases initially showed a pH of 7.17 with a pCO2 of 40 and pO2 of 96 and the follow-up blood gases to be done this morning. Hemodynamically, he is stable on no pressors. His blood work showed a troponin of 1.5 max atelectatic acid level initially was at 5.0 dropped down to 3.4. Serum bicarb was at 14. BUN is at 19 with a creatinine of 1.2 and the sodium is at 140. White cell count 22.1 with a hemoglobin of 17.6. Current temperature is 90.6F. The patient is currently on aspirin and Plavix. The patient is also on metoprolol at a dose of 25 mg by mouth twice a day. He is also on Zestril 2.5 mg by mouth daily for blood pressure control and he is also on high-dose statins. Noted the patient was taken Xarelto on outpatient basis which I'm assuming given to him for paroxysmal atrial fibrillation. CAT scan of the brain has not been done yet. No seizure activity has been noted. On 01/29/2022, seeing the patient for a follow-up. The patient is post V. fib arrest. The patient remains sedated on propofol and the patient remains unresponsive. No seizure activity has been noted. The patient is currently off her before running at 45 mcg/kg per minute. Were unable to do sedation holiday as the patient remains quite unstable at this point in time. On today's eval uation, the patient remains on propofol. The patient remains on a mechanical ventilator on assist control mode at the rate of 24 with a tidal volume of 500 a FiO2 of 60% with a PEEP of 5. The patient's blood gas showed a pH of 7.09 with a pCO2 of 35 and a pO2 of 96. Chest x-ray shows no evidence of any pneumonia and ET tube is in a good location. The patient spiked a temperature 100.5. This could be a central fever. Aspiration cannot be ruled out and the patient will be started on IV Zosyn. Furthermore, the patient was having issues with an elevated lactic acid level yesterday. Lactic acid level was as high as 6. The patient was given a total of 2 L of IV fluids. Based on the underlying non- anion gap Metabolic acidosis, the patient was started on a bicarb infusion after being given a total of 5 mEq IV push. Note that the morning blood work shows a sodium of 142 with a potassium of 5.8, serum bicarb is at 11 with a chloride of 122. The BUN is at 33 with a creatinine of 2.1. The patient has a urine output of around 20 mL an hour of urine output has dropped and the patient has sustained an acute kidney injury. Norepinephrine infusion is off. The patient has developed also a shock liver with an AST of 2034 and an ALT of 2976. Condition remains extremely critical at this point in time. Objective - Vital Signs Vital signs: Vital Signs Temp 98.5 F 01/29/22 12:00 Pulse 112 H 01/29/22 12:00 Resp 24 01/29/22 12:00 BP 110/62 01/29/22 12:00 Pulse Ox 95 01/29/22 12:00 FiO2 60 01/29/22 12:00 Intake & Output 01/28/22 01/29/22 01/29/22 18:59 06:59 18:59 Intake Total 8354.728 2831.980 1838.015 Output Total 625 245 65 Balance 063.822 1442.980 1773.015 Weight 92.3 kg 88.4 kg Intake: IV 1184.6 1300 900 0.9 NaCl- 1184.6 1200 600 ACETAMINOPHEN IV (For NPO 100 ) 1,000 mg In Empty Bag 1 bag @ 400 mls/hr IVPB Q6HR PRN Rx#:[id number] Sodium Bicarbonate 200 infusion Sodium bicarbonate IV 100 push Intake, IV Titration 158.500 321.980 878.015 Amount Dextrose 5% in Water 1, 600 000 ml @ 150 mls/hr IV . Q7H40M [facility] with Sodium Bicarb (1 Meq/ml) 150 ml Rx#:[id number] Norepinephrine 4 mg In 115.755 Sodium Chloride 0.9% 250 ml @ 0.05 MCG/KG/MIN 17. 583 mls/hr IV .[id number] [facility] Rx#:[id number] Piperacillin-Tazobactam 3 100 .375 gm In Sodium Chloride 0.9% 100 ml @ 25 mls/hr IVPB Q12HR [facility] Rx #:[id number] propofoL 1,000 mg In 158.500 206.225 178.015 Empty Bag 1 bag @ 5 MCG/ KG/MIN 2.654 mls/hr IV . Q24H [facility] Rx#:[id number] Other 60 Output: Urine 625 245 65 Other: Voiding Method Indwelling Catheter Indwelling Catheter # Bowel Movements 2 ABP, PAP, CO, CI - Last Documented Arterial Blood Pressure 105/54 - Exam Gen. appearance patient is sedated and patient, comfortable, not in acute respiratory distress and quite sick is a mechanical ventilator. Head exam was generally normal. There was no scleral icterus or corneal arcus. Mucous membranes were moist. Neck was supple and without jugular venous distension, thyromegaly, or carotid bruits. Carotids were easily palpable bilaterally. There was no adenopathy. Orogastric and orotracheal tube are both in place. Lungs are diminished bilaterally otherwise clear. Breath sounds are symmetric at this point in time. Cardiac exam revealed the PMI to be normally situated and sized. The rhythm was regular and no extrasystoles were noted during several minutes of auscultation. The first and second heart sounds were normal and physiologic splitting of the second heart sound was noted. There were no murmurs, rubs, clicks, or gallops. Abdominal exam revealed normal bowel sounds. The abdomen was soft, non-tender, and without masses, organomegaly, or appreciable enlargement of the abdominal aorta. extremities are warm. No cyanosis or clubbing and pulses are adequate at this point in time. Examination of the skin revealed no evidence of significant rashes, suspicious appearing nevi or other concerning lesions. neurologically, the patient is grimacing to deep painful stimulation all 4 extremities. Pupils around 2 mm in size, sluggishly reactive to light. No nystagmus. No preferential gaze. Positive cough and a gag. Absent Babinski signs and reflexes are symmetrical. Adequate motor and sensory function cannot be obtained. - Labs CBC & Chem 7: 01/29/22 04:55 01/29/22 04:55 Labs: Abnormal Lab Results - Last 24 Hours (Table) 01/28/22 01/28/22 01/28/22 Range/Units 13:27 16:00 18:14 WBC (3.8-10.6) k/uL Hct (39.0-53.0) % MCV (80.0-100.0) fL Neutrophils # (Manual) (1.3-7.7) k/uL PT (9.0-12.0) sec INR (<1.2) ABG pH (7.35-7.45) ABG pCO2 (35-45) mmHg ABG HCO3 (21-25) mmol/L ABG Total CO2 (19-24) mmol/L ABG O2 Saturation (94-97) % Potassium (3.5-5.1) mmol/L Chloride (98-107) mmol/L Carbon Dioxide (22-30) mmol/L BUN (9-20) mg/dL Creatinine (0.66-1.25) mg/dL Glucose (74-99) mg/dL POC Glucose (mg/dL) 163 H (70-110) mg/dL Plasma Lactic Acid Joce 3.7 H* 6.0 H* (0.7-2.0) mmol/L Calcium (8.4-10.2) mg/dL AST (17-59) U/L ALT (4-49) U/L Alkaline Phosphatase (38-126) U/L Total Protein (6.3-8.2) g/dL Albumin (3.5-5.0) g/dL 01/28/22 01/28/22 01/29/22 Range/Units 19:45 23:39 03:02 WBC (3.8-10.6) k/uL Hct (39.0-53.0) % MCV (80.0-100.0) fL Neutrophils # (Manual) (1.3-7.7) k/uL PT (9.0-12.0) sec INR (<1.2) ABG pH (7.35-7.45) ABG pCO2 (35-45) mmHg ABG HCO3 (21-25) mmol/L ABG Total CO2 (19-24) mmol/L ABG O2 Saturation (94-97) % Potassium (3.5-5.1) mmol/L Chloride (98-107) mmol/L Carbon Dioxide (22-30) mmol/L BUN (9-20) mg/dL Creatinine (0.66-1.25) mg/dL Glucose (74-99) mg/dL POC Glucose (mg/dL) 118 H (70-110) mg/dL Plasma Lactic Acid Joce 4.2 H* 3.1 H* (0.7-2.0) mmol/L Calcium (8.4-10.2) mg/dL AST (17-59) U/L ALT (4-49) U/L Alkaline Phosphatase (38-126) U/L Total Protein (6.3-8.2) g/dL Albumin (3.5-5.0) g/dL 01/29/22 01/29/22 01/29/22 Range/Units 04:55 04:55 04:55 WBC 21.5 H (3.8-10.6) k/uL Hct 53.7 H (39.0-53.0) % MCV 106.6 H (80.0-100.0) fL Neutrophils # (Manual) 18.70 H (1.3-7.7) k/uL PT 12.8 H (9.0-12.0) sec INR 1.2 H (<1.2) ABG pH (7.35-7.45) ABG pCO2 (35-45) mmHg ABG HCO3 (21-25) mmol/L ABG Total CO2 (19-24) mmol/L ABG O2 Saturation (94-97) % Potassium 5.8 H (3.5-5.1) mmol/L Chloride 122 H (98-107) mmol/L Carbon Dioxide 11 L (22-30) mmol/L BUN 33 H (9-20) mg/dL Creatinine 2.13 H (0.66-1.25) mg/dL Glucose 139 H (74-99) mg/dL POC Glucose (mg/dL) (70-110) mg/dL Plasma Lactic Acid Joce (0.7-2.0) mmol/L Calcium 7.2 L (8.4-10.2) mg/dL AST 2934 H (17-59) U/L ALT 2976 H (4-49) U/L Alkaline Phosphatase 147 H (38-126) U/L Total Protein 5.7 L (6.3-8.2) g/dL Albumin 3.0 L (3.5-5.0) g/dL 01/29/22 01/29/22 01/29/22 Range/Units 05:15 05:48 12:05 WBC (3.8-10.6) k/uL Hct (39.0-53.0) % MCV (80.0-100.0) fL Neutrophils # (Manual) (1.3-7.7) k/uL PT (9.0-12.0) sec INR (<1.2) ABG pH 7.09 L* (7.35-7.45) ABG pCO2 (35-45) mmHg ABG HCO3 11 L (21-25) mmol/L ABG Total CO2 12 L (19-24) mmol/L ABG O2 Saturation (94-97) % Potassium (3.5-5.1) mmol/L Chloride (98-107) mmol/L Carbon Dioxide (22-30) mmol/L BUN (9-20) mg/dL Creatinine (0.66-1.25) mg/dL Glucose (74-99) mg/dL POC Glucose (mg/dL) 138 H (70-110) mg/dL Plasma Lactic Acid Joce 3.3 H* (0.7-2.0) mmol/L Calcium (8.4-10.2) mg/dL AST (17-59) U/L ALT (4-49) U/L Alkaline Phosphatase (38-126) U/L Total Protein (6.3-8.2) g/dL Albumin (3.5-5.0) g/dL 01/29/22 01/29/22 Range/Units 12:09 12:12 WBC (3.8-10.6) k/uL Hct (39.0-53.0) % MCV (80.0-100.0) fL Neutrophils # (Manual) (1.3-7.7) k/uL PT (9.0-12.0) sec INR (<1.2) ABG pH 7.31 L (7.35-7.45) ABG pCO2 32 L (35-45) mmHg ABG HCO3 16 L (21-25) mmol/L ABG Total CO2 17 L (19-24) mmol/L ABG O2 Saturation 97.5 H (94-97) % Potassium (3.5-5.1) mmol/L Chloride (98-107) mmol/L Carbon Dioxide (22-30) mmol/L BUN (9-20) mg/dL Creatinine (0.66-1.25) mg/dL Glucose (74-99) mg/dL POC Glucose (mg/dL) 135 H (70-110) mg/dL Plasma Lactic Acid Joce (0.7-2.0) mmol/L Calcium (8.4-10.2) mg/dL AST (17-59) U/L ALT (4-49) U/L Alkaline Phosphatase (38-126) U/L Total Protein (6.3-8.2) g/dL Albumin (3.5-5.0) g/dL Microbiology - Last 24 Hours (Table) 01/28/22 05:10 Urine Culture - Final Urine,Voided 01/28/22 03:20 Gram Stain - Preliminary Sputum Sputum Culture - Preliminary Assessment and Plan Plan: Acute cardiac arrest/out of the hospital V. fib arrest witnessed, exact downtime is not well-established and the patient was given amiodarone, epinephrine and CPR with 4 defibrillations. Note that the patient's mental status has not been assessed and the patient would have potentially an underlying anoxic encephalopathy. Patient is currently on propofol. Still on stable to have this patient off propofol yet. Initial CAT scan of the brain was negative. Acute inferior wall ST segment elevation myocardial infarction post cardiac catheterization and stenting of the PDA lesion, the patient is currently off pressors Acute hypoxic respiratory failure secondary to cardiac arrest, currently intubated on a mechanical ventilator, blood. A chest x-ray was noted, blood gases was noted that is consistent with metabolic acidosis Paroxysmal atrial fibrillation current rhythm is sinus Acute fever, could be central, could be infectious Acute kidney injury with a low urine output Acute shock liver secondary to above Acute non- Metabolic acidosis currently on a bicarb infusion COPD Known history of coronary artery disease with previous stenting of the RCA Hypertension Previous history of DVT Hyperlipidemia Hepatitis A Chronic gout Chronic pain/back pain Previous history of TIA 2009 diverticular perforation/colostomy with reversal neuropathy Plan Continue ventilator support IV fluids in the form of bicarb infusion at the rate of 150 mL an hour Review the blood gas and monitored acid base status Monitor LFTs Monitor renal function Monitor metabolic acidosis Sedation holiday and assess the patient's mental status Avoid any hyperthermia and give the patient IV Zosyn empiric coverage for possible aspiration pneumonia Patient is currently off pressors Continue metoprolol and and stop Zestril for now CAT scan of the brain was negative Echocardiogram is pending Condition is critical we'll continue to follow and make further recommendations based on his progress. Condition remains extremely critical. Evaluation was done and more than 30 minutes Time with Patient: Greater than 30
[2022-01-29 17:52] LABS: Glucose,Whole Blood 125 mg/dL (70-110)
[2022-01-29 20:56] LABS: Potassium 3.9 mmol/L (3.5-5.1)
[2022-01-29 20:57] LABS: Calcium 6.4 mg/dL (8.4-10.2)
[2022-01-29] MEDS: ATORVASTATIN 80 MG TAB PO SCH (21:20)
[2022-01-29] MEDS ORDERED: CALCIUM GLUCONATE IN NACL 2 GM in SALINE 1 100ML.BAG IVPB ONE (21:30)
--- NOTE | 2022-01-30 00:15 | P.HPIM ---
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 Pulse is 89 patient is afebrile. leukocytosis 22.1, ph 7.1. Elevated lactic acid at 5.0. Creatinine 1.2 and after discussed with the normal limits. Liver enzymes elevated 847 AST and 636 ALT Urinalysis showed 2+ protein and large blood Chest x-ray: No consolidation Review of Systems n/a ROS unobtainable: due to endotracheal tube Past Medical History Past Medical History: Chest Pain / Angina, COPD, Deep Vein Thrombosis (DVT), GERD/Reflux, Hyperlipidemia, Hypertension, Myocardial Infarction ([place]), Osteoarthritis ([place]) Additional Past Medical History / Comment(s): History of hepatitis A, chronic pain, gout, "kidneys shut down x2 when sick". Back pain, TIA 2009 Last Myocardial Infarction Date:: 1999 History of Any Multi-Drug Resistant Organisms: MRSA Date of last positivie culture/infection: 2015 MDRO Source:: face MRSA Past Surgical History: Bowel Resection, Heart Catheterization With Stent, Hernia Repair, Orthopedic Surgery Additional Past Surgical History / Comment(s): Shoulder surgery, hernia, ca taracts, pain clinic procedures, colostomy. right testicle removed. Past Anesthesia/Blood Transfusion Reactions: No Reported Reaction Date of Last Stent Placement:: 1999 Past Psychological History: Anxiety, Depression Smoking Status: Former smoker Past Alcohol Use History: Daily Past Drug Use History: None Reported - Past Family History Mother Family Medical History: Cancer, Myocardial Infarction ([place]) Additional Family Medical History / Comment(s): Mother had unknown type of cancer. She of a [place] at the age of 68yrs. Father Family Medical History: Myocardial Infarction ([place]) Additional Family Medical History / Comment(s): Father from his heart "exploding" at the age of 58 yrs. Sister(s) Family Medical History: Cancer Additional Family Medical History / Comment(s): Sisters x2 Medications and Allergies Home Medications Medication Instructions Recorded Confirmed Type RX: Furosemide [Lasix] 40 mg PO BID #60 tab 07/23/20 01/28/22 Rx RX: Albuterol Sulfate [Ventolin 1 - 2 puff INHALATION RT-Q6H PRN 07/21/21 01/28/22 History HFA] RX: Fluticasone/Umeclidin/Vilanter 1 puff INHALATION RT-DAILY 07/21/21 01/28/22 History [Trelegy Ellipta 100-62.5-25] RX: Metoprolol Tartrate [Lopressor] 100 mg PO DIRECTED 12/11/21 01/28/22 History RX: Nitroglycerin Sl Tabs 0.4 mg SL Q5M PRN 12/11/21 01/28/22 History [Nitrostat] RX: Sertraline [Zoloft] 50 mg PO DAILY 12/11/21 01/28/22 History RX: Atorvastatin [Lipitor] 80 mg PO HS 90 Days #90 tab 12/12/21 01/28/22 Rx Isosorbide Mononitrate ER [Imdur] 60 mg PO DIRECTED 01/28/22 01/28/22 History RX: Aspirin 81 mg PO DIRECTED 01/28/22 01/28/22 History RX: lisinopriL 40 mg PO DIRECTED 01/28/22 01/28/22 History Rivaroxaban [Xarelto] 20 mg PO DIRECTED 01/28/22 01/28/22 History cloNIDine HCL [Catapres] 0.2 mg PO DIRECTED 01/28/22 01/28/22 History Allergies Allergy/AdvReac Type Severity Reaction Status Date / Time No Known Allergies Allergy Verified 01/28/22 00:56 Physical Exam Vitals: Vital Signs Temp Pulse Resp BP Pulse Ox FiO2 01/28/22 05:15 88 27 H 113/77 93 L 50 01/28/22 05:00 86 24 102/69 93 L 50 01/28/22 04:45 85 24 101/69 91 L 50 01/28/22 04:30 81 24 92/65 90 L 50 01/28/22 04:15 83 21 87/59 92 L 50 01/28/22 04:00 82 20 102/71 91 L 50 01/28/22 03:46 50 01/28/22 03:45 84 21 128/80 94 L 50 01/28/22 03:30 103 H 16 150/81 92 L 50 01/28/22 03:22 50 01/28/22 03:15 98 21 137/114 92 L 50 01/28/22 01:40 103 H 24 90/60 97 01/28/22 01:30 103 H 24 108/75 97 01/28/22 01:20 99 24 117/80 98 01/28/22 01:18 98 24 124/86 97 01/28/22 01:14 93 24 130/94 99 01/28/22 01:06 85 20 126/87 100 01/28/22 00:58 94 20 151/112 100 01/28/22 00:50 100 01/28/22 00:49 97.7 F 97 20 186/129 85 L Intake and Output 01/27/22 01/27/22 01/28/22 14:59 22:59 06:59 Intake Total 1076.9 Output Total 410 Balance 666.9 Intake: IV 1076.9 0.9 NaCl- 276.9 Output: Gastric Drainage 150 Urine 260 Other: Weight 92.3 kg ABP, PAP, CO, CI - Last 8 Hours Arterial Blood Pressure 114/74 Arterial Blood Pressure 111/66 Arterial Blood Pressure 105/65 Arterial Blood Pressure 93/57 Arterial Blood Pressure 90/57 Arterial Blood Pressure 93/56 Arterial Blood Pressure 112/68 Arterial Blood Pressure 165/104 -GENERAL: The patient is intubated and sedated HEENT: Pupils are round and equally reacting to light. EOMI. No scleral icterus. No conjunctival pallor. Normocephalic, atraumatic. No pharyngeal erythema. No thyromegaly. CARDIOVASCULAR: S1 and S2 present. No murmurs, rubs, or gallops. PULMONARY: Chest is clear to auscultation, no wheezing or crackles. ABDOMEN: Soft, nontender, nondistended, normoactive bowel sounds. No palpable organomegaly. MUSCULOSKELETAL: No joint swelling or deformity. EXTREMITIES: No cyanosis, clubbing, or pedal edema. NEUROLOGICAL: Gross neurological examination did not reveal any focal deficits. SKIN: No rashes. no petechiae. Results CBC & Chem 7: 01/29/22 04:55 01/29/22 20:22 Labs: Abnormal Lab Results - Last 24 Hours (Table) 01/28/22 01/28/22 01/28/22 Range/Units 00:57 00:57 00:57 WBC 10.8 H (3.8-10.6) k/uL Hgb (13.0-17.5) gm/dL Hct (39.0-53.0) % MCV 107.1 H D (80.0-100.0) fL Plt Count 149 L (150-450) k/uL Neutrophils # (Manual) (1.3-7.7) k/uL Lymphocytes # 7.7 H (1.0-4.8) k/uL ABG pH (7.35-7.45) ABG pCO2 (35-45) mmHg ABG pO2 (83-108) mmHg ABG HCO3 (21-25) mmol/L ABG Total CO2 (19-24) mmol/L ABG O2 Saturation (94-97) % Chloride 110 H (98-107) mmol/L Carbon Dioxide 16 L (22-30) mmol/L Glucose 171 H (74-99) mg/dL POC Glucose (mg/dL) (70-110) mg/dL Plasma Lactic Acid Joce 9.2 H* (0.7-2.0) mmol/L Calcium 8.3 L (8.4-10.2) mg/dL Magnesium 2.5 H (1.6-2.3) mg/dL AST 337 H (17-59) U/L ALT 310 H (4-49) U/L Alkaline Phosphatase (38-126) U/L Troponin I (0.000-0.034) ng/mL Total Protein 5.7 L (6.3-8.2) g/dL Albumin 3.2 L (3.5-5.0) g/dL Ur Specific [place] (1.001-1.035) Urine Protein (Negative) Urine Glucose (UA) (Negative) Urine Blood (Negative) Urine RBC (0-5) /hpf Urine WBC (0-5) /hpf Urine Bacteria (None) /hpf Hyaline Casts (0-2) /lpf Urine Mucus (None) /hpf 01/28/22 01/28/22 01/28/22 Range/Units 01:10 01:20 03:06 WBC (3.8-10.6) k/uL Hgb (13.0-17.5) gm/dL Hct (39.0-53.0) % MCV (80.0-100.0) fL Plt Count (150-450) k/uL Neutrophils # (Manual) (1.3-7.7) k/uL Lymphocytes # (1.0-4.8) k/uL ABG pH 6.95 L* (7.35-7.45) ABG pCO2 46 H (35-45) mmHg ABG pO2 >400 H (83-108) mmHg ABG HCO3 10 L* (21-25) mmol/L ABG Total CO2 12 L (19-24) mmol/L ABG O2 Saturation 99.5 H (94-97) % Chloride (98-107) mmol/L Carbon Dioxide (22-30) mmol/L Glucose (74-99) mg/dL POC Glucose (mg/dL) 207 H 199 H (70-110) mg/dL Plasma Lactic Acid Joce (0.7-2.0) mmol/L Calcium (8.4-10.2) mg/dL Magnesium (1.6-2.3) mg/dL AST (17-59) U/L ALT (4-49) U/L Alkaline Phosphatase (38-126) U/L Troponin I (0.000-0.034) ng/mL Total Protein (6.3-8.2) g/dL Albumin (3.5-5.0) g/dL Ur Specific [place] (1.001-1.035) Urine Protein (Negative) Urine Glucose (UA) (Negative) Urine Blood (Negative) Urine RBC (0-5) /hpf Urine WBC (0-5) /hpf Urine Bacteria (None) /hpf Hyaline Casts (0-2) /lpf Urine Mucus (None) /hpf 01/28/22 01/28/22 01/28/22 Range/Units 03:44 03:58 03:58 WBC 22.1 H (3.8-10.6) k/uL Hgb 17.6 H (13.0-17.5) gm/dL Hct 55.3 H (39.0-53.0) % MCV 103.4 H (80.0-100.0) fL Plt Count (150-450) k/uL Neutrophils # (Manual) 19.40 H (1.3-7.7) k/uL Lymphocytes # (1.0-4.8) k/uL ABG pH 7.17 L* (7.35-7.45) ABG pCO2 (35-45) mmHg ABG pO2 (83-108) mmHg ABG HCO3 14 L (21-25) mmol/L ABG Total CO2 16 L (19-24) mmol/L ABG O2 Saturation (94-97) % Chloride (98-107) mmol/L Carbon Dioxide (22-30) mmol/L Glucose (74-99) mg/dL POC Glucose (mg/dL) (70-110) mg/dL Plasma Lactic Acid Joce (0.7-2.0) mmol/L Calcium (8.4-10.2) mg/dL Magnesium (1.6-2.3) mg/dL AST (17-59) U/L ALT (4-49) U/L Alkaline Phosphatase (38-126) U/L Troponin I 1.230 H* (0.000-0.034) ng/mL Total Protein (6.3-8.2) g/dL Albumin (3.5-5.0) g/dL Ur Specific [place] (1.001-1.035) Urine Protein (Negative) Urine Glucose (UA) (Negative) Urine Blood (Negative) Urine RBC (0-5) /hpf Urine WBC (0-5) /hpf Urine Bacteria (None) /hpf Hyaline Casts (0-2) /lpf Urine Mucus (None) /hpf 01/28/22 01/28/22 01/28/22 Range/Units 03:58 03:58 05:10 WBC (3.8-10.6) k/uL Hgb (13.0-17.5) gm/dL Hct (39.0-53.0) % MCV (80.0-100.0) fL Plt Count (150-450) k/uL Neutrophils # (Manual) (1.3-7.7) k/uL Lymphocytes # (1.0-4.8) k/uL ABG pH (7.35-7.45) ABG pCO2 (35-45) mmHg ABG pO2 (83-108) mmHg ABG HCO3 (21-25) mmol/L ABG Total CO2 (19-24) mmol/L ABG O2 Saturation (94-97) % Chloride 113 H (98-107) mmol/L Carbon Dioxide 14 L (22-30) mmol/L Glucose 194 H (74-99) mg/dL POC Glucose (mg/dL) (70-110) mg/dL Plasma Lactic Acid Joce 5.0 H* (0.7-2.0) mmol/L Calcium 7.8 L (8.4-10.2) mg/dL Magnesium 2.5 H (1.6-2.3) mg/dL AST 847 H (17-59) U/L ALT 636 H (4-49) U/L Alkaline Phosphatase 162 H (38-126) U/L Troponin I (0.000-0.034) ng/mL Total Protein (6.3-8.2) g/dL Albumin (3.5-5.0) g/dL Ur Specific [place] 1.050 H (1.001-1.035) Urine Protein 2+ H (Negative) Urine Glucose (UA) Trace H (Negative) Urine Blood Large H (Negative) Urine RBC 20 H (0-5) /hpf Urine WBC 12 H (0-5) /hpf Urine Bacteria Occasional H (None) /hpf Hyaline Casts 3 H (0-2) /lpf Urine Mucus Occasional H (None) /hpf Assessment and Plan Assessment: cardiac arrest status post CPR Inferior STEMI status post PCI to PDA Acute hypoxic respiratory failure status post intubated and mechanical ventilation Metabolic acidosis secondary to above Transaminitis secondary to above Altered mental status secondary to above, rule out anoxic brain injury History of Deep venous thrombosis on Xarelto at home Hypertension Hyperlipidemia History of GERD History of facial MRSA Plan: this is a 61 years old male presents with cardiac arrest This is a 61 years old male who presents with cardiac arrest underwent CPR. Continue with intubation and mechanical ventilation Cartilage team on the case as well as pulmonary/critical care team Continue with aspirin and Plavix Is also on a statin, metoprolol and lisinopril small dose. Labs and medication were reviewed.. Continue same treatment. Continue with sy mptomatic treatment. Resume home medication. Monitor lytes and vitals. DVT and GI prophylaxis. Further recommendationsas per clinical course of the patient DVT prophylaxis: Aspirin and Plavix GI Prophylaxis: Pepcid Prognosis is guarded
--- NOTE | 2022-01-30 00:18 | P.PN ---
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 Pulse is 89 patient is afebrile. leukocytosis 22.1, ph 7.1. Elevated lactic acid at 5.0. Creatinine 1.2 and after discussed with the normal limits. Liver enzymes elevated 847 AST and 636 ALT Urinalysis showed 2+ protein and large blood Chest x-ray: No consolidation 01/30/2022 Patient remains intubated and sedated in the ICU with pulmonary/critical care team following her closely as well as c cardiology team. She is on FiO2 of 60%. Note BC 21.5, creatinine 3.1, she has urine output. Calcium 6.4, liver enzymes significantly elevated. PH is 7.3 urine analysis: Protein and RBC FOBT positive EEG no epileptiform discharge. Chest x-ray: No acute process Morphine added for better pain control. She remains on Zosyn and sodium bicarb She is on aspirin and Plavix, metoprolol and Lipitor per procurement assistant Objective - Vital Signs Vital signs: Vital Signs Temp 98.3 F 01/29/22 08:00 Pulse 113 H 01/29/22 10:30 Resp 23 01/29/22 10:30 BP 132/74 01/29/22 10:30 Pulse Ox 95 01/29/22 10:00 FiO2 60 01/29/22 10:51 Intake & Output 01/28/22 01/29/22 01/29/22 18:59 06:59 18:59 Intake Total 3107.254 8804.980 1160 Output Total 625 245 40 Balance 134.053 5557.980 1120 Weight 92.3 kg 88.4 kg Intake: IV 1184.6 1300 700 0.9 NaCl- 1184.6 1200 400 ACETAMINOPHEN IV (For NPO 100 ) 1,000 mg In Empty Bag 1 bag @ 400 mls/hr IVPB Q6HR PRN Rx#:[id number] Sodium Bicarbonate 200 infusion Sodium bicarbonate IV 100 push Intake, IV Titration 158.500 321.980 400 Amount Dextrose 5% in Water 1, 300 000 ml @ 100 mls/hr IV . [id number] [facility] with Sodium Bicarb (1 Meq/ml) 150 ml Rx#:[id number] Norepinephrine 4 mg In 115.755 Sodium Chloride 0.9% 250 ml @ 0.05 MCG/KG/MIN 17. 583 mls/hr IV .[id number] [facility] Rx#:[id number] propofoL 1,000 mg In 158.500 206.225 100 Empty Bag 1 bag @ 5 MCG/ KG/MIN 2.654 mls/hr IV . Q24H [facility] Rx#:[id number] Other 60 Output: Urine 625 245 40 Other: Voiding Method Indwelling Catheter Indwelling Catheter # Bowel Movements 2 ABP, PAP, CO, CI - Last Documented Arterial Blood Pressure 132/59 - Labs CBC & Chem 7: 01/29/22 04:55 01/29/22 20:22 Labs: Abnormal Lab Results - Last 24 Hours (Table) 01/28/22 01/28/22 01/28/22 Range/Units 11:39 13:27 16:00 WBC (3.8-10.6) k/uL Hct (39.0-53.0) % MCV (80.0-100.0) fL Neutrophils # (Manual) (1.3-7.7) k/uL PT (9.0-12.0) sec INR (<1.2) ABG pH (7.35-7.45) ABG HCO3 (21-25) mmol/L ABG Total CO2 (19-24) mmol/L Potassium (3.5-5.1) mmol/L Chloride (98-107) mmol/L Carbon Dioxide (22-30) mmol/L BUN (9-20) mg/dL Creatinine (0.66-1.25) mg/dL Glucose (74-99) mg/dL POC Glucose (mg/dL) 184 H (70-110) mg/dL Plasma Lactic Acid Joce 3.7 H* 6.0 H* (0.7-2.0) mmol/L Calcium (8.4-10.2) mg/dL AST (17-59) U/L ALT (4-49) U/L Alkaline Phosphatase (38-126) U/L Total Protein (6.3-8.2) g/dL Albumin (3.5-5.0) g/dL 01/28/22 01/28/22 01/28/22 Range/Units 18:14 19:45 23:39 WBC (3.8-10.6) k/uL Hct (39.0-53.0) % MCV (80.0-100.0) fL Neutrophils # (Manual) (1.3-7.7) k/uL PT (9.0-12.0) sec INR (<1.2) ABG pH (7.35-7.45) ABG HCO3 (21-25) mmol/L ABG Total CO2 (19-24) mmol/L Potassium (3.5-5.1) mmol/L Chloride (98-107) mmol/L Carbon Dioxide (22-30) mmol/L BUN (9-20) mg/dL Creatinine (0.66-1.25) mg/dL Glucose (74-99) mg/dL POC Glucose (mg/dL) 163 H 118 H (70-110) mg/dL Plasma Lactic Acid Joce 4.2 H* (0.7-2.0) mmol/L Calcium (8.4-10.2) mg/dL AST (17-59) U/L ALT (4-49) U/L Alkaline Phosphatase (38-126) U/L Total Protein (6.3-8.2) g/dL Albumin (3.5-5.0) g/dL 01/29/22 01/29/22 01/29/22 Range/Units 03:02 04:55 04:55 WBC 21.5 H (3.8-10.6) k/uL Hct 53.7 H (39.0-53.0) % MCV 106.6 H (80.0-100.0) fL Neutrophils # (Manual) 18.70 H (1.3-7.7) k/uL PT 12.8 H (9.0-12.0) sec INR 1.2 H (<1.2) ABG pH (7.35-7.45) ABG HCO3 (21-25) mmol/L ABG Total CO2 (19-24) mmol/L Potassium (3.5-5.1) mmol/L Chloride (98-107) mmol/L Carbon Dioxide (22-30) mmol/L BUN (9-20) mg/dL Creatinine (0.66-1.25) mg/dL Glucose (74-99) mg/dL POC Glucose (mg/dL) (70-110) mg/dL Plasma Lactic Acid Joce 3.1 H* (0.7-2.0) mmol/L Calcium (8.4-10.2) mg/dL AST (17-59) U/L ALT (4-49) U/L Alkaline Phosphatase (38-126) U/L Total Protein (6.3-8.2) g/dL Albumin (3.5-5.0) g/dL 01/29/22 01/29/22 01/29/22 Range/Units 04:55 05:15 05:48 WBC (3.8-10.6) k/uL Hct (39.0-53.0) % MCV (80.0-100.0) fL Neutrophils # (Manual) (1.3-7.7) k/uL PT (9.0-12.0) sec INR (<1.2) ABG pH 7.09 L* (7.35-7.45) ABG HCO3 11 L (21-25) mmol/L ABG Total CO2 12 L (19-24) mmol/L Potassium 5.8 H (3.5-5.1) mmol/L Chloride 122 H (98-107) mmol/L Carbon Dioxide 11 L (22-30) mmol/L BUN 33 H (9-20) mg/dL Creatinine 2.13 H (0.66-1.25) mg/dL Glucose 139 H (74-99) mg/dL POC Glucose (mg/dL) 138 H (70-110) mg/dL Plasma Lactic Acid Joce (0.7-2.0) mmol/L Calcium 7.2 L (8.4-10.2) mg/dL AST 2934 H (17-59) U/L ALT 2976 H (4-49) U/L Alkaline Phosphatase 147 H (38-126) U/L Total Protein 5.7 L (6.3-8.2) g/dL Albumin 3.0 L (3.5-5.0) g/dL Microbiology - Last 24 Hours (Table) 01/28/22 03:20 Gram Stain - Preliminary Sputum Sputum Culture - Preliminary 01/28/22 05:10 Urine Culture - Preliminary Urine,Voided Assessment and Plan Assessment: cardiac arrest status post CPR Inferior STEMI status post PCI to PDA Acute hypoxic respiratory failure status post intubated and mechanical ventilation Metabolic acidosis secondary to above Transaminitis secondary to above Altered mental status secondary to above, rule out anoxic brain injury History of Deep venous thrombosis on Xarelto at home Hypertension Hyperlipidemia History of GERD History of facial MRSA Plan: this is a 61 years old male presents with cardiac arrest This is a 61 years old male who presents with cardiac arrest underwent CPR. Continue with intubation and mechanical ventilation Cardiology team on the case as well as pulmonary/critical care team Continue with Zosyn monitor creatinine and urine output and input Continue with aspirin and Plavix Other cardiac medications management deferred to cardiology team including statin, metoprolol and lisinopril small dose. Labs and medication were reviewed.. Continue same treatment. Continue with symptomatic treatment. Resume home medication. Monitor lytes and vitals. DVT and GI prophylaxis. Further recommendations as per clinical course of the patient DVT prophylaxis: Aspirin and Plavix GI Prophylaxis: Pepcid Prognosis is guarded
[2022-01-30 00:38] LABS: Glucose,Whole Blood 99 mg/dL (70-110)
[2022-01-30] MEDS: INSULIN ASPART (NovoLOG) 100 UNIT/ML VIAL SQ SCH ×4 (00:38→17:56)
[2022-01-30] MEDS: NOREPINEPHRINE 4 MG in SODIUM CHLORIDE 0.9% 250 ML IV SCH ×2 (00:39→15:46)
[2022-01-30 05:18] LABS: HCT 42.1 % (39.0-53.0); MCHC 32.9 g/dL (31.0-37.0); Macrocytosis Slight; Mean Platelet Volume 10.8; Platelet Count 125 k/uL (150-450); RBC 4.19 m/uL (4.30-5.90); RDW 14.2 % (11.5-15.5); WBC 8.1 k/uL (3.8-10.6)
[2022-01-30 05:30] LABS: HGB 13.8 gm/dL (13.0-17.5); MCV 100.5 fL (80.0-100.0)
[2022-01-30 05:59] LABS: ABG Base Excess -1.8 mmol/L; ABG HCO3 23 mmol/L (21-25); ABG Oxygen Saturation 98.7 % (94-97); ABG PCO2 37 mmHg (35-45); ABG PO2 130 mmHg (83-108); ABG TCO2 24 mmol/L (19-24)
[2022-01-30 06:00] LABS: Calcium 6.5 mg/dL (8.4-10.2); Potassium 3.9 mmol/L (3.5-5.1); Total Protein 4.1 g/dL (6.3-8.2)
[2022-01-30 06:01] LABS: Allen Test Performed? No
[2022-01-30 06:03] LABS: Glucose,Whole Blood 87 mg/dL (70-110)
[2022-01-30] MEDS: SODIUM CHLORIDE 0.9% 1,000 ML IV SCH ×2 (06:59→15:50)
[2022-01-30] MEDS: DEXTROSE 5% IN WATER 1,000 ML with SODIUM BICARB (1 MEQ/ML) 150 ML IV SCH (07:00)
[2022-01-30] MEDS: CLOPIDOGREL 75 MG TAB PO SCH (08:10)
[2022-01-30] MEDS: PIPERACILLIN-TAZOBACTAM 3.375 GM in SODIUM CHLORIDE 0.9% 100 ML IVPB SCH ×2 (08:10→20:17)
[2022-01-30] MEDS: FAMOTIDINE 20 MG/2 ML VIAL IV SCH (08:10)
[2022-01-30] MEDS: METOPROLOL TARTRATE 25 MG TAB PO SCH ×2 (08:10→20:17)
[2022-01-30] MEDS: CHLORHEXIDINE GLUCONATE 15 ML CUP MUCOUS MEM SCH ×2 (08:10→20:17)
[2022-01-30] MEDS: ASPIRIN 81 MG PO SCH (08:10)
--- NOTE | 2022-01-30 08:10 | XR ---
EXAMINATION TYPE: XR chest 1V portable DATE OF EXAM: 01/30/2022 COMPARISON: Chest x-ray 01/29/2022 HISTORY: Intubated TECHNIQUE: Single frontal view of the chest is obtained. FINDINGS: Endotracheal tube, NG tube, left subclavian central venous catheter are stable and overlyi ng appropriate positions. Patient is rotated and there are overlying artifacts. There is no evident p neumothorax or sizable effusion. Cardiac mediastinal silhouette is stable. Aorta is dense. Interstiti um is mildly increased, patchy basilar density is noted. IMPRESSION: Correlate for possible volume overload, interstitial edema and basilar atelectasis, pneu monia not excluded.
--- NOTE | 2022-01-30 09:22 | P.PN ---
Subjective PROGRESS NOTE The patient is a 61-year-old male with a known history of CAD, chronic tobacco use, paroxysmal atrial fibrillation who presented with cardiac arrest and ventricular fibrillation per EMS requiring cardioversion 4. On his initial EKG he was in atrial fibrillation with ST segment elevation inferiorly and underwent stenting of his right PDA. He continues to be intubated, in sinus mechanism with improvement in his ST elevation. He is on no vasopressor. His urinary output is stable. He has no evidence of recurrent ventricular t achycardia. In the past his left ventricle systolic function was normal. January 29: The patient remains intubated in sinus tachycardia. There is no evidence of ventricular ectopic activity. He was febrile earlier. He remains sedated. He had some movement of his arms yesterday. He has an elevation of his liver function test as well as worsening of his renal functions. His urine output is low but stable. His blood pressure has been stable. He has no further ventricle tachycardia. He is acidotic and being started on sodium bicarb drip. He underwent placement of an art line and triple lumen yesterday. 01/30 Patient seen and examined. Patient remains intubated and sedated. Per nursing patient had sedation holiday without purposeful movements. His liver enzymes have increase most consistent with shock liver as well as creatinine increasing. He has been receiving IV fluids with normal saline at 100 mL per hour in addition to bicarb drip at 150 mL per hour. Has been off and on low-dose norepinephrine. Echocardiogram pending this morning. Medications: Vitals reviewed LUNGS: Clear to auscultation anteriorly, no wheezes HEART: Regular rate and rhythm, S1, S2. No S3. No systolic murmur ABDOMEN: Soft, nontender, no organomegaly EXTREMETIES: No edema. Intubated and sedated IMPRESSION: 1. Acute cardiac arrest with ventricular fibrillation status post cardioversion. Continues to be in sinus mechanism 2. Evidence of acute inferior myocardial infarction on admission with stenting of the PDA patent stent in the mid RCA 3. Prior history of paroxysmal atrial fibrillation 4. History of hyperlipidemia 5. Rule out anoxic encephalopathy 6. Chronic tobacco use 7. Worsening liver functions, likely shock liver 8. Prior history of DVT 9. Fever possible aspiration pneumonia 10. Acute renal injury PLAN: Echocardiogram taken this morning however results not yet available. Concern of shock liver and likely cardiorenal syndrome. This x-ray showing more volume overload and concern of pulmonary edema. He has been having limited urine output with +5L yesterday and worsening kidney function and liver injury. Concern of possible RV failure or cardiorenal syndrome. Check CVP. Hold IV fluids for now. Nephrology consultation. Continue with supportive care. Prognosis guarded. Objective - Vital Signs Vital signs: Vital Signs Temp 97.9 F 01/30/22 00:00 Pulse 95 01/30/22 07:00 Resp 24 01/30/22 07:00 BP 106/61 01/30/22 06:00 Pulse Ox 97 01/30/22 07:00 FiO2 60 01/30/22 07:55 Intake & Output 01/29/22 01/30/22 01/30/22 18:59 06:59 18:59 Intake Total 3463.273 1982.473 114 Output Total 545 70 5 Balance 2918.273 1912.473 109 Weight 88.4 kg 95.9 kg Intake: IV 1500 1300 100 0.9 NaCl- 1200 1200 100 Piperacillin-Tazobactam 3 100 .375 gm In Sodium Chloride 0.9% 100 ml @ 25 mls/hr IVPB Q12HR [facility] Rx #:[id number] Sodium Bicarbonate 200 infusion Sodium bicarbonate IV 100 push Intake, IV Titration 1883.273 444.473 Amount Dextrose 5% in Water 1, 1500 150 000 ml @ 150 mls/hr IV . Q7H40M [facility] with Sodium Bicarb (1 Meq/ml) 150 ml Rx#:[id number] Norepinephrine 4 mg In 88.562 Sodium Chloride 0.9% 250 ml @ 0.05 MCG/KG/MIN 17. 583 mls/hr IV .[id number] [facility] Rx#:[id number] Piperacillin-Tazobactam 3 100 .375 gm In Sodium Chloride 0.9% 100 ml @ 25 mls/hr IVPB Q12HR [facility] Rx #:[id number] propofoL 1,000 mg In 283.273 205.911 Empty Bag 1 bag @ 5 MCG/ KG/MIN 2.654 mls/hr IV . Q24H [facility] Rx#:[id number] Tube Feeding 20 148 14 Other 60 90 Output: Gastric Drainage 400 Urine 145 70 5 Other: Voiding Method Indwelling Catheter Indwelling Catheter ABP, PAP, CO, CI - Last Documented Arterial Blood Pressure 112/44 - Labs CBC & Chem 7: 01/30/22 05:00 07/05/22 05:00 Labs: Abnormal Lab Results - Last 24 Hours (Table) 01/29/22 01/29/22 01/29/22 Range/Units 12:05 12:09 12:12 RBC (4.30-5.90) m/uL MCV (80.0-100.0) fL Plt Count (150-450) k/uL ABG pH 7.31 L (7.35-7.45) ABG pCO2 32 L (35-45) mmHg ABG pO2 (83-108) mmHg ABG HCO3 16 L (21-25) mmol/L ABG Total CO2 17 L (19-24) mmol/L ABG O2 Saturation 97.5 H (94-97) % Chloride (98-107) mmol/L Carbon Dioxide (22-30) mmol/L BUN (9-20) mg/dL Creatinine (0.66-1.25) mg/dL Glucose (74-99) mg/dL POC Glucose (mg/dL) 135 H (70-110) mg/dL Plasma Lactic Acid Joce 3.3 H* (0.7-2.0) mmol/L Calcium (8.4-10.2) mg/dL Total Bilirubin (0.2-1.3) mg/dL AST (17-59) U/L ALT (4-49) U/L Alkaline Phosphatase (38-126) U/L Total Protein (6.3-8.2) g/dL Albumin (3.5-5.0) g/dL 01/29/22 01/29/22 01/29/22 Range/Units 17:50 17:51 20:22 RBC (4.30-5.90) m/uL MCV (80.0-100.0) fL Plt Count (150-450) k/uL ABG pH (7.35-7.45) ABG pCO2 (35-45) mmHg ABG pO2 (83-108) mmHg ABG HCO3 (21-25) mmol/L ABG Total CO2 (19-24) mmol/L ABG O2 Saturation (94-97) % Chloride 116 H (98-107) mmol/L Carbon Dioxide 19 L (22-30) mmol/L BUN 51 H (9-20) mg/dL Creatinine 3.19 H (0.66-1.25) mg/dL Glucose 112 H (74-99) mg/dL POC Glucose (mg/dL) 125 H (70-110) mg/dL Plasma Lactic Acid Joce 2.8 H* (0.7-2.0) mmol/L Calcium 6.4 L* (8.4-10.2) mg/dL Total Bilirubin (0.2-1.3) mg/dL AST (17-59) U/L ALT (4-49) U/L Alkaline Phosphatase (38-126) U/L Total Protein (6.3-8.2) g/dL Albumin (3.5-5.0) g/dL 01/30/22 01/30/22 01/30/22 Range/Units 00:56 05:00 05:00 RBC 4.19 L (4.30-5.90) m/uL MCV 100.5 H D (80.0-100.0) fL Plt Count 125 L (150-450) k/uL ABG pH (7.35-7.45) ABG pCO2 (35-45) mmHg ABG pO2 (83-108) mmHg ABG HCO3 (21-25) mmol/L ABG Total CO2 (19-24) mmol/L ABG O2 Saturation (94-97) % Chloride 112 H (98-107) mmol/L Carbon Dioxide (22-30) mmol/L BUN 59 H (9-20) mg/dL Creatinine 3.77 H (0.66-1.25) mg/dL Glucose (74-99) mg/dL POC Glucose (mg/dL) (70-110) mg/dL Plasma Lactic Acid Joce 2.5 H* (0.7-2.0) mmol/L Calcium 6.5 L (8.4-10.2) mg/dL Total Bilirubin 2.0 H (0.2-1.3) mg/dL AST 3405 H (17-59) U/L ALT 3968 H (4-49) U/L Alkaline Phosphatase 136 H (38-126) U/L Total Protein 4.1 L (6.3-8.2) g/dL Albumin 2.0 L (3.5-5.0) g/dL 01/30/22 01/30/22 Range/Units 05:00 05:50 RBC (4.30-5.90) m/uL MCV (80.0-100.0) fL Plt Count (150-450) k/uL ABG pH (7.35-7.45) ABG pCO2 (35-45) mmHg ABG pO2 130 H (83-108) mmHg ABG HCO3 (21-25) mmol/L ABG Total CO2 (19-24) mmol/L ABG O2 Saturation 98.7 H (94-97) % Chloride (98-107) mmol/L Carbon Dioxide (22-30) mmol/L BUN (9-20) mg/dL Creatinine (0.66-1.25) mg/dL Glucose (74-99) mg/dL POC Glucose (mg/dL) (70-110) mg/dL Plasma Lactic Acid Joce 2.5 H* (0.7-2.0) mmol/L Calcium (8.4-10.2) mg/dL Total Bilirubin (0.2-1.3) mg/dL AST (17-59) U/L ALT (4-49) U/L Alkaline Phosphatase (38-126) U/L Total Protein (6.3-8.2) g/dL Albumin (3.5-5.0) g/dL Microbiology - Last 24 Hours (Table) 01/28/22 05:10 Urine Culture - Final Urine,Voided 01/28/22 03:20 Gram Stain - Preliminary Sputum Sputum Culture - Preliminary
[2022-01-30] MEDS ORDERED: IPRATROPIUM-ALBUTEROL 3 ML NEB INHALATION PRN (10:08)
[2022-01-30] MEDS ORDERED: FUROSEMIDE 10 MG/ML 4 ML VIAL IV SCH (10:15)
[2022-01-30] MEDS: methylPREDNISolone SOD SUCCI 40 MG/ML 1 ML VIAL IV SCH ×2 (10:21→16:33)
[2022-01-30] MEDS ORDERED: FUROSEMIDE 10 MG/ML 10 ML VIAL IV STA (11:00)
--- NOTE | 2022-01-30 11:08 | P.NPCON ---
History of Present Illness - Reason for Consult acute renal failure - History of Present Illness Reason for consultation: Acute kidney injury History of present illness: Patient is a 61-year-old male seen in renal consultation for acute kidney injury. Patient baseline creatinine is near 1 and is up to 3.77 today. Patient collapsed at home and CPR was started by the family. Subsequently the EMS was called and CPR was continued. He was also shocked 4 times. Patient had a V. fib arrest. Patient underwent cardiac catheterization on 01/28/2022 with stent placement to the right PDA. Patient's currently intubated and sedated. He is on Levophed. Urine output is about 5-10 mL an hour. He is also receiving IV fluids along with tube feeds. Potassium is 3.9. Blood pressure stable. Patient is not a diabetic. He does have history of hypertension. I don't see any nonsteroidals and his home medication list. CVP is 7. Vital signs are stable. On vasopressor support. General: Intubated. LUNGS: Breath sounds decreased. HEART: Rate and Rhythm are regular. ABDOMEN: Soft, no distention. EXTREMITITES: Trace edema. Past Medical History Past Medical History: Chest Pain / Angina, COPD, Deep Vein Thrombosis (DVT), GERD/Reflux, Hyperlipidemia, Hypertension, Myocardial Infarction ([place]), Osteoarthritis (OA) Additional Past Medical History / Comment(s): History of hepatitis A, chronic pain, gout, "kidneys shut down x2 when sick". Back pain, TIA 2009 Last Myocardial Infarction Date:: 1999 History of Any Multi-Drug Resistant Organisms: MRSA Date of last positivie culture/infection: 2015 MDRO Source:: face MRSA Past Surgical History: Bowel Resection, Heart Catheterization With Stent, Hernia Repair, Orthopedic Surgery Additional Past Surgical History / Comment(s): Shoulder surgery, hernia, cataracts, pain clinic procedures, colostomy. right testicle removed. Past Anesthesia/Blood Transfusion Reactions: No Reported Reaction Date of Last Stent Placement:: 1999 Past Psychological History: Anxiety, Depression Smoking Status: Former smoker Past Alcohol Use History: Daily Past Drug Use History: None Reported - Past Family History Mother Family Medical History: Cancer, Myocardial Infarction ([place]) Additional Family Medical History / Comment(s): Mother had unknown type of cancer. She of a [place] at the age of 68yrs. Father Family Medical History: Myocardial Infarction ([place]) Additional Family Medical History / Comment(s): Father from his heart "exploding" at the age of 58 yrs. Sister(s) Family Medical History: Cancer Additional Family Medical History / Comment(s): Sisters x2 Medications and Allergies Home Medications Medication Instructions Recorded Confirmed Type Furosemide [Lasix] 40 mg PO BID #60 tab 07/23/20 01/30/22 Rx Albuterol Sulfate [Ventolin HFA] 1 - 2 puff INHALATION RT-Q6H PRN 07/21/21 01/30/22 History Metoprolol Tartrate [Lopressor] 100 mg PO BID-W/MEALS 12/11/21 01/30/22 History Nitroglycerin Sl Tabs [Nitrostat] 0.4 mg SL Q5M PRN 12/11/21 01/30/22 History Sertraline [Zoloft] 50 mg PO DAILY 12/11/21 01/28/22 History Atorvastatin [Lipitor] 80 mg PO HS 90 Days #90 tab 12/12/21 01/30/22 Rx Isosorbide Mononitrate ER [Imdur] 60 mg PO DAILY 01/28/22 01/30/22 History Rivaroxaban [Xarelto] 20 mg PO W/SUPPER 01/28/22 01/30/22 History cloNIDine HCL [Catapres] 0.2 mg PO BID 01/28/22 01/30/22 History lisinopriL 40 mg PO DAILY 01/28/22 01/30/22 History amLODIPine [Norvasc] 10 mg PO DAILY 01/30/22 01/30/22 History Allergies Allergy/AdvReac Type Severity Reaction Status Date / Time No Known Allergies Allergy Verified 01/28/22 00:56 Physical Exam Vitals: Vital Signs Temp Pulse Resp BP Pulse Ox FiO2 01/30/22 10:00 84 24 113/58 96 01/30/22 09:30 84 24 97 01/30/22 09:00 88 24 119/59 97 01/30/22 08:30 96 24 97 01/30/22 08:00 98.4 F 98 24 112/64 97 60 01/30/22 07:55 60 01/30/22 07:30 97 24 96 01/30/22 07:00 95 24 97 60 01/30/22 06:30 97 24 97 60 01/30/22 06:00 96 25 H 106/61 98 60 01/30/22 05:30 96 24 98 60 01/30/22 05:00 96 29 H 112/63 98 60 01/30/22 04:30 93 27 H 112/63 98 60 01/30/22 04:00 93 27 H 107/65 97 60 01/30/22 03:45 60 01/30/22 03:30 96 27 H 98 60 01/30/22 03:00 94 24 113/61 98 60 01/30/22 02:30 95 24 113/61 97 60 01/30/22 02:00 93 24 120/69 92 L 60 01/30/22 01:30 97 24 97 60 01/30/22 01:00 95 24 122/66 97 60 01/30/22 00:30 97 24 97 60 01/30/22 00:00 97.9 F 97 24 137/71 97 60 01/29/22 23:30 101 H 24 137/71 97 60 01/29/22 23:25 60 01/29/22 23:00 99 24 113/69 97 60 01/29/22 22:30 98 24 113/69 97 60 01/29/22 22:00 101 H 24 101/68 97 60 01/29/22 21:30 108 H 24 101/68 97 60 01/29/22 21:00 112 H 24 112/74 97 60 01/29/22 20:30 112 H 24 112/74 97 01/29/22 20:00 99.4 F 113 H 24 114/82 97 60 01/29/22 19:30 115 H 24 97 01/29/22 19:27 60 01/29/22 19:00 115 H 24 113/67 98 01/29/22 18:30 117 H 26 H 97 04 18:00 118 H 24 121/83 98 01/29/22 17:30 120 H 26 H 97 04 17:00 122 H 25 H 121/83 97 01/29/22 16:30 122 H 25 H 183/92 96 01/29/22 16:00 98.4 F 124 H 37 H 148/91 96 60 01/29/22 15:30 122 H 33 H 97 04 15:15 60 01/29/22 15:00 120 H 28 H 129/83 97 07/04/22 14:30 117 H 24 97 01/29/22 14:00 112 H 24 113/60 97 01/29/22 13:30 112 H 24 96 01/29/22 13:00 110 H 24 119/66 95 01/29/22 12:30 112 H 24 95 01/29/22 12:00 98.5 F 112 H 24 110/62 95 60 01/29/22 11:30 112 H 24 01/29/22 11:00 114 H 24 132/74 Intake and Output 01/29/22 01/30/22 01/30/22 22:59 06:59 14:59 Intake Total 9094.673 1780.313 899.847 Output Total 470 35 10 Balance 9142.346 4026.313 889.847 Intake: IV 875 825 400 0.9 NaCl- 800 800 400 Piperacillin-Tazobactam 3 75 25 .375 gm In Sodium Chloride 0.9% 100 ml @ 25 mls/hr IVPB Q12HR [facility] Rx #:[id number] Intake, IV Titration 883.563 223.313 371.847 Amount Dextrose 5% in Water 1, 750 150 000 ml @ 150 mls/hr IV . Q7H40M [facility] with Sodium Bicarb (1 Meq/ml) 150 ml Rx#:[id number] Norepinephrine 4 mg In 11.722 76.840 Sodium Chloride 0.9% 250 ml @ 0.05 MCG/KG/MIN 17. 583 mls/hr IV .[id number] [facility] Rx#:[id number] Piperacillin-Tazobactam 3 100 .375 gm In Sodium Chloride 0.9% 100 ml @ 25 mls/hr IVPB Q12HR [facility] Rx #:[id number] propofoL 1,000 mg In 121.841 146.473 121.847 Empty Bag 1 bag @ 5 MCG/ KG/MIN 2.654 mls/hr IV . Q24H [facility] Rx#:[id number] Tube Feeding 60 108 58 Other 30 60 70 Output: Gastric Drainage 400 Urine 70 35 10 Other: Voiding Method Indwelling Catheter Indwelling Catheter Weight 88.4 kg 95.9 kg ABP, PAP, CO, CI - Last 8 Hours Arterial Blood Pressure 105/46 Arterial Blood Pressure 114/46 Arterial Blood Pressure 109/42 Arterial Blood Pressure 121/46 Arterial Blood Pressure 116/45 Arterial Blood Pressure 119/47 Arterial Blood Pressure 112/44 Arterial Blood Pressure 121/47 Arterial Blood Pressure 133/49 Arterial Blood Pressure 112/45 Arterial Blood Pressure 111/45 Arterial Blood Pressure 105/45 Arterial Blood Pressure 100/44 Arterial Blood Pressure 127/51 Arterial Blood Pressure 107/50 Results - Lab Results Most recent lab results ABG pH 7.40 (7.35-7.45) 01/30/22 05:50 ABG pCO2 37 mmHg (35-45) 01/30/22 05:50 ABG pO2 130 mmHg (83-108) H 01/30/22 05:50 ABG HCO3 23 mmol/L (21-25) 01/30/22 05:50 ABG O2 Saturation 98.7 % (94-97) H 01/30/22 05:50 Calcium 6.5 mg/dL (8.4-10.2) L 01/30/22 05:00 Magnesium 2.5 mg/dL (1.6-2.3) H 01/28/22 03:58 01/30/22 05:00 01/30/22 05:00 Assessment and Plan Plan: Assessment: 1. Acute kidney injury secondary to ATN secondary to cardiac arrest. Baseline creatinine near 1 and is up to 3.77 today. Oliguric. 2. Status post V. fib arrest on 02/24/2022. 3. Coronary disease status post right PDA stenting on 02/24/2022. 4. Shock liver. 5. Fever. Questionable aspiration pneumonia. On antibiotics. 6. Anoxic brain injury. Plan: Maintain IV fluids. Maintain tube feeds. Lasix 80 mg IV once today. If no improvement in renal function and urine output in the next 24 hours, will initiate renal replacement therapy. Check renal ultrasound. Wean FiO2 and vasopressors. Follow-up echocardiogram. Thank you for the consultation. I will continue to follow the patient with you during his hospital stay.
[2022-01-30] MEDS: IPRATROPIUM-ALBUTEROL 3 ML NEB INHALATION SCH ×4 (11:33→23:45)
--- NOTE | 2022-01-30 12:45 | CA ---
Transthoracic Echo Report Name: Jozef Banuelos Age: 61 Gender: M : 1960 Exam Date: 01/30/2022 08:20 Exam Location: [facility] Ht (in): 67 Wt (lb): 211 Ordering Physician: Genna Terry MD ([id number]) Attending/Referring Phys: Belting Cutter Thais Morris RDCS Procedure CPT: Indications: TX Cardiac Hx: Technical Quality: Very technically difficult study Contrast 1: Lumason Total Dose (mL): Contrast 2: Total Dose (mL): MEASUREMENTS (Male / Female) Normal Values FINDINGS Left Ventricle Left ventricular ejection fraction is estimated at 50-55%. Right Ventricle Right ventricle not well visualized. Right Atrium Right atrium not well visualized. Left Atrium Left atrium not well visualized. Mitral Valve Mitral valve not well visualized. Aortic Valve Aortic valve not well visualized. Tricuspid Valve Tricuspid valve not well visualized. Pulmonic Valve Pulmonic valve not well visualized. Pericardium Pericardium not visualized. Aorta Aortic root and proximal ascending aorta not well visualized. CONCLUSIONS Technically very difficult study for interpretation and Definity was used Low normal left ventricular systolic function was EF of 50% Mid ventricle and apical hypokinesia Previewed by: Dr. Mars Caprenter MD (Electronically Signed) Final Date: 30 January 2022 12:44
--- NOTE | 2022-01-30 12:51 | P.PN ---
Subjective Progress Note Date: 01/30/22 The patient is seen at bedside and his sedation has been off (IV Propofol). Per nurse making some improvement. Objective - Vital Signs Vital signs: Vital Signs Temp 98.4 F 01/30/22 08:00 Pulse 87 01/30/22 11:43 Resp 26 H 01/30/22 11:00 BP 98/58 01/30/22 11:00 Pulse Ox 95 01/30/22 11:00 FiO2 50 01/30/22 12:00 Intake & Output 01/29/22 01/30/22 01/30/22 18:59 06:59 18:59 Intake Total 3463.273 9809.481 1166.708 Output Total 545 70 20 Balance 2918.273 3558.424 8202.708 Weight 88.4 kg 95.9 kg Intake: IV 1500 1300 600 0.9 NaCl- 1200 1200 600 Piperacillin-Tazobactam 3 100 .375 gm In Sodium Chloride 0.9% 100 ml @ 25 mls/hr IVPB Q12HR [facility] Rx #:[id number] Sodium Bicarbonate 200 infusion Sodium bicarbonate IV 100 push Intake, IV Titration 1883.273 444.473 409.708 Amount Dextrose 5% in Water 1, 1500 150 150 000 ml @ 150 mls/hr IV . Q7H40M [facility] with Sodium Bicarb (1 Meq/ml) 150 ml Rx#:[id number] Norepinephrine 4 mg In 88.562 37.861 Sodium Chloride 0.9% 250 ml @ 0.05 MCG/KG/MIN 17. 583 mls/hr IV .[id number] [facility] Rx#:[id number] Piperacillin-Tazobactam 3 100 100 .375 gm In Sodium Chloride 0.9% 100 ml @ 25 mls/hr IVPB Q12HR [facility] Rx #:[id number] propofoL 1,000 mg In 283.273 205.911 121.847 Empty Bag 1 bag @ 5 MCG/ KG/MIN 2.654 mls/hr IV . Q24H [facility] Rx#:[id number] Tube Feeding 20 148 86 Other 60 90 100 Output: Gastric Drainage 400 Urine 145 70 20 Other: Voiding Method Indwelling Catheter Indwelling Catheter Indwelling Catheter ABP, PAP, CO, CI - Last Documented Arterial Blood Pressure 119/50 - Exam GENERAL: The patient is lying in bed and does not appear in acute distress. LUNG: Intubated on ventilator. NEUROLOGICAL: Limited: IV Propofol is held currently Higher mental function: The patient is drowsy but is awakeable to voice. Is following simple commands.. Cranial nerves: Opens his eyes to voice. No facial weakness. Is breathing over the vent. Motor: The strength is lifting slight his upper side to side and slightly attempting to lift above bed. Wiggling his toes to commands. Sensation: Unable to assess and with painful stimuli not withdrawing. SOME OF THE WORK-UP DURING THIS HOSPITAL VISIT CONSISTED OF: Patient liver function is trending up AST currently eats 2934 Y ALT is 2976. Ammonia level is 10. CT of the head is reported as no evidence of for acute subacute CVA. I personally reviewed the CT of the head and there is no acute intracranial process seen at this time. There is no bleeding. There is no mass effect and was able to appreciate that. Routine EEG is abnormal. The background slowing is suggestive of mild encephalopathy. Otherwise there is no focal slowing, epileptiform discharges or seizure on the EEG. - Labs CBC & Chem 7: 01/30/22 05:00 01/30/22 05:00 Labs: Abnormal Lab Results - Last 24 Hours (Table) 01/29/22 01/29/22 01/29/22 Range/Units 17:50 17:51 20:22 RBC (4.30-5.90) m/uL MCV (80.0-100.0) fL Plt Count (150-450) k/uL ABG pO2 (83-108) mmHg ABG O2 Saturation (94-97) % Chloride 116 H (98-107) mmol/L Carbon Dioxide 19 L (22-30) mmol/L BUN 51 H (9-20) mg/dL Creatinine 3.19 H (0.66-1.25) mg/dL Glucose 112 H (74-99) mg/dL POC Glucose (mg/dL) 125 H (70-110) mg/dL Plasma Lactic Acid Joce 2.8 H* (0.7-2.0) mmol/L Calcium 6.4 L* (8.4-10.2) mg/dL Total Bilirubin (0.2-1.3) mg/dL AST (17-59) U/L ALT (4-49) U/L Alkaline Phosphatase (38-126) U/L Total Protein (6.3-8.2) g/dL Albumin (3.5-5.0) g/dL 01/30/22 01/30/22 01/30/22 Range/Units 00:56 05:00 05:00 RBC 4.19 L (4.30-5.90) m/uL MCV 100.5 H D (80.0-100.0) fL Plt Count 125 L (150-450) k/uL ABG pO2 (83-108) mmHg ABG O2 Saturation (94-97) % Chloride 112 H (98-107) mmol/L Carbon Dioxide (22-30) mmol/L BUN 59 H (9-20) mg/dL Creatinine 3.77 H (0.66-1.25) mg/dL Glucose (74-99) mg/dL POC Glucose (mg/dL) (70-110) mg/dL Plasma Lactic Acid Joce 2.5 H* (0.7-2.0) mmol/L Calcium 6.5 L (8.4-10.2) mg/dL Total Bilirubin 2.0 H (0.2-1.3) mg/dL AST 3405 H (17-59) U/L ALT 3968 H (4-49) U/L Alkaline Phosphatase 136 H (38-126) U/L Total Protein 4.1 L (6.3-8.2) g/dL Albumin 2.0 L (3.5-5.0) g/dL 01/30/22 01/30/22 Range/Units 05:00 05:50 RBC (4.30-5.90) m/uL MCV (80.0-100.0) fL Plt Count (150-450) k/uL ABG pO2 130 H (83-108) mmHg ABG O2 Saturation 98.7 H (94-97) % Chloride (98-107) mmol/L Carbon Dioxide (22-30) mmol/L BUN (9-20) mg/dL Creatinine (0.66-1.25) mg/dL Glucose (74-99) mg/dL POC Glucose (mg/dL) (70-110) mg/dL Plasma Lactic Acid Joce 2.5 H* (0.7-2.0) mmol/L Calcium (8.4-10.2) mg/dL Total Bilirubin (0.2-1.3) mg/dL AST (17-59) U/L ALT (4-49) U/L Alkaline Phosphatase (38-126) U/L Total Protein (6.3-8.2) g/dL Albumin (3.5-5.0) g/dL Microbiology - Last 24 Hours (Table) 01/28/22 03:20 Gram Stain - Final Sputum Sputum Culture - Final 01/28/22 05:10 Urine Culture - Final Urine,Voided Assessment and Plan Assessment: Anoxic encephalopathy due to cardiac arrest--improving Has also component of metabolic/electrolyte derangement and sedation that affect his cognition/neurological status Acute cardiac arrest out of the hospital. Unknown exact downtown. Patient was in V. fib and required epinephrine, amiodarone and CPR with 4 defibrillation Acute inferior wall ST segment elevation MD status post cardiac cath of the PDA Hepatic shock due to cardiac arrest---trending up Proximal atrial fibrillation currently in sinus rhythm History of coronary artery disease status post stenting of the right ICA Previous TIA in 2009 Chronic gout Hepatitis A History of diverticular perforation/colostomy History of DVT Chronic back pain Plan: Q2 hour neuro checks. We'll defer the rest of the medical management to the cardiology primary and ICU team Condition is very guarded at this time. Patient IV Propofol is held today and patient was following some simple commands. He is making improvement and will continue to monitor. The plan was discussed with the patient's nursing staff. J Luis Vila M.D. Neuro-hospitalist Time with Patient: Less than 30
[2022-01-30 13:09] LABS: Glucose,Whole Blood 69 mg/dL (70-110)
[2022-01-30] MEDS ORDERED: DEXTROSE 50% SYRINGE 50 ML IVP STA (13:10)
[2022-01-30 13:46] LABS: Glucose,Whole Blood 125 mg/dL (70-110)
--- NOTE | 2022-01-30 15:01 | P.PN ---
Subjective Progress Note Date: 01/30/22 Principal diagnosis: Cardiac arrest and acute hypoxic respiratory failure secondary to cardiac, 61-year-old male patient was brought into the hospital after he sustained a cardiac arrest at home. The patient apparently was in V. fib arrest. His have coronary artery disease. The patient also is known to have paroxysmal atrial fibrillation. Family found the patient collapsed on the floor and EMS arrived within 3 minutes after the call. The patient was found to be unresponsive. His breathing was agonal. He had no pulse. He was in V. fib. He required 4 attempts of atrial fibrillation. He was given epinephrine 4 rounds a total of 4 mg and he was also given amiodarone. He was brought into the emergency and initial blood pressure was 186/129. The patient's EKG showed ST segment elevation inferior wall myocardial infarction along with underlying atrial fibrillation. The patient was taken for immediate cardiac catheterization and the patient was found to have significant disease in the right PDA, patent stent in the mid RCA, mild disease in the left circumflex and RCA, successful stenting of the right PDA was done without any issues. The patient's LAD and left main had some minimal disease without any high-grade stenosis. The PDA had 80-85% lesion and appropriate stenting was done. The patient was started on aspirin and Plavix. The patient was kept intubated on was brought into the intensive care unit. This morning, the patient is sedated and he is on propofol at the rate of 25 mcg/kg per minute and is adequately sedated without any issues. He is quite successful mechanical ventilator. He is currently on assist control mode at the rate of 24 with a tidal volume of 500 and FiO2 of 50% with a PEEP of 5. His cardiac rhythm is sinus at this point in time. His chest x-ray is showing adequate expansion for both lungs. ET tube is in a good location. No airspace disease or pulmonary infiltrates. There is some mild cardiomegaly noted on the chest x-ray. The patient's blood gases initially showed a pH of 7.17 with a pCO2 of 40 and pO2 of 96 and the follow-up blood gases to be done this morning. Hemodynamically, he is stable on no pressors. His blood work showed a troponin of 1.5 max atelectatic acid level initially was at 5.0 dropped down to 3.4. Serum bicarb was at 14. BUN is at 19 with a creatinine of 1.2 and the sodium is at 140. White cell count 22.1 with a hemoglobin of 17.6. Current temperature is 90.6F. The patient is currently on aspirin and Plavix. The patient is also on metoprolol at a dose of 25 mg by mouth twice a day. He is also on Zestril 2.5 mg by mouth daily for blood pressure control and he is also on high-dose statins. Noted the patient was taken Xarelto on outpatient basis which I'm assuming given to him for paroxysmal atrial fibrillation. CAT scan of the brain has not been done yet. No seizure activity has been noted. On 01/29/2022, seeing the patient for a follow-up. The patient is post V. fib arrest. The patient remains sedated on propofol and the patient remains unresponsive. No seizure activity has been noted. The patient is currently off her before running at 45 mcg/kg per minute. Were unable to do sedation holiday as the patient remains quite unstable at this point in time. On today's evaluation, the patient remains on propofol. The patient remains on a mechanical ventilator on assist control mode at the rate of 24 with a tidal volume of 500 a FiO2 of 60% with a PEEP of 5. The patient's blood gas showed a pH of 7.09 with a pCO2 of 35 and a pO2 of 96. Chest x-ray shows no evidence of any pneumonia and ET tube is in a good location. The patient spiked a temp erature 100.5. This could be a central fever. Aspiration cannot be ruled out and the patient will be started on IV Zosyn. Furthermore, the patient was having issues with an elevated lactic acid level yesterday. Lactic acid level was as high as 6. The patient was given a total of 2 L of IV fluids. Based on the underlying non-anion gap Metabolic acidosis, the patient was started on a bicarb infusion after being given a total of 5 mEq IV push. Note that the morning blood work shows a sodium of 142 with a potassium of 5.8, serum bicarb is at 11 with a chloride of 122. The BUN is at 33 with a creatinine of 2.1. The patient has a urine output of around 20 mL an hour of urine output has dr opped and the patient has sustained an acute kidney injury. Norepinephrine infusion is off. The patient has developed also a shock liver with an AST of 2033 and an ALT of 2976. Condition remains extremely critical at this point in time. Reevaluated today on 01/30/2022, patient remains in the ICU, intubated and mechanically ventilated. He is on assist control rate of 24th of volume 500 FiO2 50% and PEEP of 5. ABG earlier on 60% FiO2 showed a pO2 of 130 pCO2 37 pH of 7.40 and sodium bicarb was discontinued. Patient is on propofol at 20 mcg/kg/m he is also on norepinephrine at 0.02 mcg/kg/m IV fluid at 100 mL per hour, CVP is around 7. Chest x-ray is showing evidence of interstitial edema /infiltrates, however his CVP is 7 and I'm recommending that we continue IV fluids. Patient remains sedated, apparently he had metabolic encephalopathy secondary to his cardiac arrest, patient is status post stent placement to the PDA. EEG showed encephalopathy but no evidence of seizures. WBC count is 8 hemoglobin is 13.8 electrolytes are normal renal profile showed a BUN of 59 and creatinine 3.77, worsening since admission. RTC the patient developed acute kidney injury. Objective - Vital Signs Vital signs: Vital Signs Temp 98.9 F 01/30/22 12:00 Pulse 89 01/30/22 13:00 Resp 25 H 01/30/22 13:00 BP 99/71 01/30/22 13:00 Pulse Ox 94 L 01/30/22 13:00 FiO2 50 01/30/22 12:00 Intake & Output 01/29/22 01/30/22 01/30/22 18:59 06:59 18:59 Intake Total 3463.273 8481.302 7453.028 Output Total 545 70 20 Balance 2918.273 5823.537 8086.028 Weight 88.4 kg 95.9 kg Intake: IV 1500 1300 700 0.9 NaCl- 1200 1200 700 Piperacillin-Tazobactam 3 100 .375 gm In Sodium Chloride 0.9% 100 ml @ 25 mls/hr IVPB Q12HR [facility] Rx #:[id number] Sodium Bicarbonate 200 infusion Sodium bicarbonate IV 100 push Intake, IV Titration 1883.273 444.473 419.028 Amount Dextrose 5% in Water 1, 1500 150 150 000 ml @ 150 mls/hr IV . Q7H40M [facility] with Sodium Bicarb (1 Meq/ml) 150 ml Rx#:[id number] Norepinephrine 4 mg In 88.562 47.181 Sodium Chloride 0.9% 250 ml @ 0.05 MCG/KG/MIN 17. 583 mls/hr IV .[id number] [facility] Rx#:[id number] Piperacillin-Tazobactam 3 100 100 .375 gm In Sodium Chloride 0.9% 100 ml @ 25 mls/hr IVPB Q12HR [facility] Rx #:[id number] propofoL 1,000 mg In 283.273 205.911 121.847 Empty Bag 1 bag @ 5 MCG/ KG/MIN 2.654 mls/hr IV . Q24H [facility] Rx#:[id number] Tube Feeding 20 148 100 Other 60 90 100 Output: Gastric Drainage 400 Urine 145 70 20 Other: Voiding Method Indwelling Catheter Indwelling Catheter Indwelling Catheter ABP, PAP, CO, CI - Last Documented Arterial Blood Pressure 132/51 - Exam Physical Exam: Revealed a 61-year-old white male, intubated, mechanically ventilated, sedated, but not paralysis. Head: Atraumatic, normocephalic. HEENT:[Neck is supple.] [No neck masses.] [No thyromegaly.] [No JVD.] Chest: [Symmetrical chest expansion, crackles at the bases, no rhonchi and no wheezes..] Cardiac Exam: [Normal S1 and S2, no S3 gallop, no murmur.] Abdomen: [Soft, nontender, no megaly, no rebound, no guarding, normal bowel sounds.] Extremities: [No clubbing, no edema, no cyanosis.] Neurological Exam: Patient is sedated, unresponsive to any stimuli. He is on a small dose of propofol. Psychiatric could not be assessed, patient is sedated. - Labs CBC & Chem 7: 01/30/22 05:00 01/30/22 05:00 Labs: Abnormal Lab Results - Last 24 Hours (Table) 01/29/22 01/29/22 01/29/22 Range/Units 17:50 17:51 20:22 RBC (4.30-5.90) m/uL MCV (80.0-100.0) fL Plt Count (150-450) k/uL ABG pO2 (83-108) mmHg ABG O2 Saturation (94-97) % Chloride 116 H (98-107) mmol/L Carbon Dioxide 19 L (22-30) mmol/L BUN 51 H (9-20) mg/dL Creatinine 3.19 H (0.66-1.25) mg/dL Glucose 112 H (74-99) mg/dL POC Glucose (mg/dL) 125 H (70-110) mg/dL Plasma Lactic Acid Joce 2.8 H* (0.7-2.0) mmol/L Calcium 6.4 L* (8.4-10.2) mg/dL Total Bilirubin (0.2-1.3) mg/dL AST (17-59) U/L ALT (4-49) U/L Alkaline Phosphatase (38-126) U/L Total Protein (6.3-8.2) g/dL Albumin (3.5-5.0) g/dL 01/30/22 01/30/22 01/30/22 Range/Units 00:56 05:00 05:00 RBC 4.19 L (4.30-5.90) m/uL MCV 100.5 H D (80.0-100.0) fL Plt Count 125 L (150-450) k/uL ABG pO2 (83-108) mmHg ABG O2 Saturation (94-97) % Chloride 112 H (98-107) mmol/L Carbon Dioxide (22-30) mmol/L BUN 59 H (9-20) mg/dL Creatinine 3.77 H (0.66-1.25) mg/dL Glucose (74-99) mg/dL POC Glucose (mg/dL) (70-110) mg/dL Plasma Lactic Acid Joce 2.5 H* (0.7-2.0) mmol/L Calcium 6.5 L (8.4-10.2) mg/dL Total Bilirubin 2.0 H (0.2-1.3) mg/dL AST 3405 H (17-59) U/L ALT 3968 H (4-49) U/L Alkaline Phosphatase 136 H (38-126) U/L Total Protein 4.1 L (6.3-8.2) g/dL Albumin 2.0 L (3.5-5.0) g/dL 01/30/22 01/30/22 01/30/22 Range/Units 05:00 05:50 13:00 RBC (4.30-5.90) m/uL MCV (80.0-100.0) fL Plt Count (150-450) k/uL ABG pO2 130 H (83-108) mmHg ABG O2 Saturation 98.7 H (94-97) % Chloride (98-107) mmol/L Carbon Dioxide (22-30) mmol/L BUN (9-20) mg/dL Creatinine (0.66-1.25) mg/dL Glucose (74-99) mg/dL POC Glucose (mg/dL) (70-110) mg/dL Plasma Lactic Acid Joce 2.5 H* 2.1 H* (0.7-2.0) mmol/L Calcium (8.4-10.2) mg/dL Total Bilirubin (0.2-1.3) mg/dL AST (17-59) U/L ALT (4-49) U/L Alkaline Phosphatase (38-126) U/L Total Protein (6.3-8.2) g/dL Albumin (3.5-5.0) g/dL 01/30/22 01/30/22 Range/Units 13:07 13:45 RBC (4.30-5.90) m/uL MCV (80.0-100.0) fL Plt Count (150-450) k/uL ABG pO2 (83-108) mmHg ABG O2 Saturation (94-97) % Chloride (98-107) mmol/L Carbon Dioxide (22-30) mmol/L BUN (9-20) mg/dL Creatinine (0.66-1.25) mg/dL Glucose (74-99) mg/dL POC Glucose (mg/dL) 69 L 125 H (70-110) mg/dL Plasma Lactic Acid Joce (0.7-2.0) mmol/L Calcium (8.4-10.2) mg/dL Total Bilirubin (0.2-1.3) mg/dL AST (17-59) U/L ALT (4-49) U/L Alkaline Phosphatase (38-126) U/L Total Protein (6.3-8.2) g/dL Albumin (3.5-5.0) g/dL Microbiology - Last 24 Hours (Table) 01/28/22 03:20 Gram Stain - Final Sputum Sputum Culture - Final 07/03/22 05:10 Urine Culture - Final Urine,Voided Assessment and Plan Assessment: Impression: Acute hypoxic respiratory failure secondary to cardiac arrest Cardiac arrest with ventricular fibrillation status post cardioversion, patient is in sinus rhythm. Acute inferior wall myocardial infarction status post stenting of the PDA, patent stent in mid RCA. Paroxysmal atrial fibrillation Tobacco dependence syndrome Previous history of DVT Possible aspiration pneumonia Acute kidney injury, acute tubular necrosis Shock liver secondary to cardiac arrest Possible anoxic brain injury/encephalopathy History of underlying COPD Chronic low back pain History of colostomy and reversal Recommendation: Continue ventilatory support Continue hemodynamic support Nutritional support/enteral feeding Continue to monitor renal and liver profile. Continue Zosyn/empiric coverage for aspiration pneumonia Continue IV fluids Reviewed the results of the echocardiogram, patient has preserved LV function. Discontinue bicarb We will continue to follow. Patient is critically ill. Critical care time is over 30 minutes Time with Patient: Greater than 30
[2022-01-30] MEDS: MORPHINE SULFATE 4 MG/ML SYRINGE IVP PRN (15:49)
[2022-01-30 17:53] LABS: Glucose,Whole Blood 91 mg/dL (70-110)
--- NOTE | 2022-01-30 19:15 | US ---
EXAMINATION TYPE: US kidneys/renal and bladder DATE OF EXAM: 01/30/2022 COMPARISON: NONE CLINICAL HISTORY: lalito. LALITO EXAM MEASUREMENTS: Right Kidney: 12.5 x 6.0 x 6.1cm Left Kidney: 10.7 x 5.6 x 5.1cm Right Kidney: No hydronephrosis or masses seen Left Kidney: No hydronephrosis or masses seen Bladder:NON DISTENDED, SOUZA BULB SEEN IN AREA Bilateral Jets seen: No LIMITED EXAM OF LEFT KIDNEY DUE TO PERISTALSIS There is no evidence for hydronephrosis at this point in time. No nephrolithiasis is seen. No brittny s are identified. The urinary bladder is anechoic. Bilateral ureteral jets are seen. IMPRESSION: No evidence of renal stone or obstruction. Urinary bladder empty during the exam.
[2022-01-30] MEDS: ATORVASTATIN 80 MG TAB PO SCH (20:15)
--- NOTE | 2022-01-30 20:16 | P.PN ---
Subjective This is a 61 years old female with past medical history of COPD, Deep Vein Thrombosis (DVT), GERD/Reflux, Hyperlipidemia, HypertensionOsteoarthritis , coronary artery disease status post stent info obtained from chart and staff witnessed arrest, cardiac arrest, shocked x2 and 4 EPIs given [employer], pulses returned upon arrival to ER room, on admission found to have inferior ST elevation He underwent emergent cardiac cath showing significant disease of the right PDA, status post stents but patent stent in RCA Blood pressure 123/84 Saturating 97%. Pulse is 89 patient is afebrile. leukocytosis 22.1, ph 7.1. Elevated lactic acid at 5.0. Creatinine 1.2 and after discussed with the normal limits. Liver enzymes elevated 847 AST and 636 ALT Urinalysis showed 2+ protein and large blood Chest x-ray: No consolidation 01/29/2022 Patient remains intubated and sedated in the ICU with pulmonary/critical care team following her closely as well as c cardiology team. She is on FiO2 of 60%. Note BC 21.5, creatinine 3.1, she has urine output. Calcium 6.4, liver enzymes significantly elevated. PH is 7.3 urine analysis: Protein and RBC FOBT positive EEG no epileptiform discharge. Chest x-ray: No acute process Morphine added for better pain control. She remains on Zosyn and sodium bicarb She is on aspirin and Plavix, metoprolol and Lipitor per property damage claims adjustor 01/30/2022 Patient remains in the ICU on mechanical ventilation, his FiO2 today is 50%. Pulmonary/critical care team following closely. WBC improved to 8.1, creatinine 3.7, patient is still making urine although less amount. Calcium is better. Liver enzymes trended up. Patient continued on aspirin Plavix and other cardiac medications Remains on Zosyn PH is 7.4 today and bicarb drip was stopped. Patient is started on IV Solu-Medrol today 40 mg every 8 hours Neurologically is improving while off propofol however full Evaluation is pending Objective - Vital Signs Vital signs: Vital Signs Temp 98.4 F 01/30/22 08:00 Pulse 84 01/30/22 11:00 Resp 26 H 01/30/22 11:00 BP 98/58 01/30/22 11:00 Pulse Ox 95 01/30/22 11:00 FiO2 60 01/30/22 08:00 Intake & Output 01/29/22 01/30/22 01/30/22 18:59 06:59 18:59 Intake Total 3463.273 0180.661 6648.708 Output Total 545 70 10 Balance 2918.273 4549.747 9623.708 Weight 88.4 kg 95.9 kg Intake: IV 1500 1300 500 0.9 NaCl- 1200 1200 500 Piperacillin-Tazobactam 3 100 .375 gm In Sodium Chloride 0.9% 100 ml @ 25 mls/hr IVPB Q12HR [facility] Rx #:[id number] Sodium Bicarbonate 200 infusion Sodium bicarbonate IV 100 push Intake, IV Titration 1883.273 444.473 409.708 Amount Dextrose 5% in Water 1, 1500 150 150 000 ml @ 150 mls/hr IV . Q7H40M [facility] with Sodium Bicarb (1 Meq/ml) 150 ml Rx#:[id number] Norepinephrine 4 mg In 88.562 37.861 Sodium Chloride 0.9% 250 ml @ 0.05 MCG/KG/MIN 17. 583 mls/hr IV .[id number] [facility] Rx#:[id number] Piperacillin-Tazobactam 3 100 100 .375 gm In Sodium Chloride 0.9% 100 ml @ 25 mls/hr IVPB Q12HR [facility] Rx #:[id number] propofoL 1,000 mg In 283.273 205.911 121.847 Empty Bag 1 bag @ 5 MCG/ KG/MIN 2.654 mls/hr IV . Q24H [facility] Rx#:[id number] Tube Feeding 20 148 72 Other 60 90 70 Output: Gastric Drainage 400 Urine 145 70 10 Other: Voiding Method Indwelling Catheter Indwelling Catheter ABP, PAP, CO, CI - Last Documented Arterial Blood Pressure 119/50 - Exam -GENERAL: The patient is sedated and intubated HEENT: Pupils are round and equally reacting to light. EOMI. No scleral icterus. No conjunctival pallor. Normocephalic, atraumatic. No pharyngeal erythema. No thyromegaly. CARDIOVASCULAR: S1 and S2 present. No murmurs, rubs, or gallops. PULMONARY: Chest is clear to auscultation, no wheezing or crackles. ABDOMEN: Soft, nontender, nondistended, normoactive bowel sounds. No palpable organomegaly. MUSCULOSKELETAL: No joint swelling or deformity. EXTREMITIES: No cyanosis, clubbing, or pedal edema. NEUROLOGICAL: Gross neurological examination did not reveal any focal deficits. SKIN: No rashes. no petechiae. - Labs CBC & Chem 7: 01/30/22 05:00 01/30/22 05:00 Labs: Abnormal Lab Results - Last 24 Hours (Table) 01/29/22 01/29/22 01/29/22 Range/Units 12:05 12:09 12:12 RBC (4.30-5.90) m/uL MCV (80.0-100.0) fL Plt Count (150-450) k/uL ABG pH 7.31 L (7.35-7.45) ABG pCO2 32 L (35-45) mmHg ABG pO2 (83-108) mmHg ABG HCO3 16 L (21-25) mmol/L ABG Total CO2 17 L (19-24) mmol/L ABG O2 Saturation 97.5 H (94-97) % Chloride (98-107) mmol/L Carbon Dioxide (22-30) mmol/L BUN (9-20) mg/dL Creatinine (0.66-1.25) mg/dL Glucose (74-99) mg/dL POC Glucose (mg/dL) 135 H (70-110) mg/dL Plasma Lactic Acid Joce 3.3 H* (0.7-2.0) mmol/L Calcium (8.4-10.2) mg/dL Total Bilirubin (0.2-1.3) mg/dL AST (17-59) U/L ALT (4-49) U/L Alkaline Phosphatase (38-126) U/L Total Protein (6.3-8.2) g/dL Albumin (3.5-5.0) g/dL 01/29/22 01/29/22 01/29/22 Range/Units 17:50 17:51 20:22 RBC (4.30-5.90) m/uL MCV (80.0-100.0) fL Plt Count (150-450) k/uL ABG pH (7.35-7.45) ABG pCO2 (35-45) mmHg ABG pO2 (83-108) mmHg ABG HCO3 (21-25) mmol/L ABG Total CO2 (19-24) mmol/L ABG O2 Saturation (94-97) % Chloride 116 H (98-107) mmol/L Carbon Dioxide 19 L (22-30) mmol/L BUN 51 H (9-20) mg/dL Creatinine 3.19 H (0.66-1.25) mg/dL Glucose 112 H (74-99) mg/dL POC Glucose (mg/dL) 125 H (70-110) mg/dL Plasma Lactic Acid Joce 2.8 H* (0.7-2.0) mmol/L Calcium 6.4 L* (8.4-10.2) mg/dL Total Bilirubin (0.2-1.3) mg/dL AST (17-59) U/L ALT (4-49) U/L Alkaline Phosphatase (38-126) U/L Total Protein (6.3-8.2) g/dL Albumin (3.5-5.0) g/dL 01/30/22 01/30/22 01/30/22 Range/Units 00:56 05:00 05:00 RBC 4.19 L (4.30-5.90) m/uL MCV 100.5 H D (80.0-100.0) fL Plt Count 125 L (150-450) k/uL ABG pH (7.35-7.45) ABG pCO2 (35-45) mmHg ABG pO2 (83-108) mmHg ABG HCO3 (21-25) mmol/L ABG Total CO2 (19-24) mmol/L ABG O2 Saturation (94-97) % Chloride 112 H (98-107) mmol/L Carbon Dioxide (22-30) mmol/L BUN 59 H (9-20) mg/dL Creatinine 3.77 H (0.66-1.25) mg/dL Glucose (74-99) mg/dL POC Glucose (mg/dL) (70-110) mg/dL Plasma Lactic Acid Joce 2.5 H* (0.7-2.0) mmol/L Calcium 6.5 L (8.4-10.2) mg/dL Total Bilirubin 2.0 H (0.2-1.3) mg/dL AST 3405 H (17-59) U/L ALT 3968 H (4-49) U/L Alkaline Phosphatase 136 H (38-126) U/L Total Protein 4.1 L (6.3-8.2) g/dL Albumin 2.0 L (3.5-5.0) g/dL 01/30/22 01/30/22 Range/Units 05:00 05:50 RBC (4.30-5.90) m/uL MCV (80.0-100.0) fL Plt Count (150-450) k/uL ABG pH (7.35-7.45) ABG pCO2 (35-45) mmHg ABG pO2 130 H (83-108) mmHg ABG HCO3 (21-25) mmol/L ABG Total CO2 (19-24) mmol/L ABG O2 Saturation 98.7 H (94-97) % Chloride (98-107) mmol/L Carbon Dioxide (22-30) mmol/L BUN (9-20) mg/dL Creatinine (0.66-1.25) mg/dL Glucose (74-99) mg/dL POC Glucose (mg/dL) (70-110) mg/dL Plasma Lactic Acid Joce 2.5 H* (0.7-2.0) mmol/L Calcium (8.4-10.2) mg/dL Total Bilirubin (0.2-1.3) mg/dL AST (17-59) U/L ALT (4-49) U/L Alkaline Phosphatase (38-126) U/L Total Protein (6.3-8.2) g/dL Albumin (3.5-5.0) g/dL Microbiology - Last 24 Hours (Table) 01/28/22 03:20 Gram Stain - Final Sputum Sputum Culture - Final 01/28/22 05:10 Urine Culture - Final Urine,Voided Assessment and Plan Assessment: cardiac arrest status post CPR Inferior STEMI status post PCI to PDA Acute hypoxic respiratory failure status post intubated and mechanical ventilation Metabolic acidosis secondary to above Transaminitis secondary to above Altered mental status secondary to above, rule out anoxic brain injury History of Deep venous thrombosis on Xarelto at home Hypertension Hyperlipidemia History of GERD History of facial MRSA Plan: this is a 61 years old male presents with cardiac arrest This is a 61 years old male who presents with cardiac arrest underwent CPR. Continue with intubation and mechanical ventilation Cardiology team on the case as well as pulmonary/critical care team Continue with Zosyn Continue with IV Solu Medrol monitor creatinine and urine output and input Continue with aspirin and Plavix Other cardiac medications management deferred to cardiology team including statin, metoprolol and lisinopril small dose. Labs and medication were reviewed.. Continue same treatment. Continue with symptomatic treatment. Resume home medication. Monitor lytes and vitals. DVT and GI prophylaxis. Further recommendations as per clinical course of the patient DVT prophylaxis: Aspirin and Plavix GI Prophylaxis: Pepcid Prognosis is guarded
[2022-01-31 00:02] LABS: Glucose,Whole Blood 105 mg/dL (70-110)
[2022-01-31] MEDS: SODIUM CHLORIDE 0.9% 1,000 ML IV SCH ×2 (00:09→06:01)
[2022-01-31] MEDS: methylPREDNISolone SOD SUCCI 40 MG/ML 1 ML VIAL IV SCH ×3 (00:10→17:32)
[2022-01-31] MEDS: INSULIN ASPART (NovoLOG) 100 UNIT/ML VIAL SQ SCH ×4 (00:10→18:20)
[2022-01-31] MEDS: MORPHINE SULFATE 4 MG/ML SYRINGE IVP PRN ×2 (01:10→20:43)
[2022-01-31] MEDS: IPRATROPIUM-ALBUTEROL 3 ML NEB INHALATION SCH ×5 (03:38→19:20)
[2022-01-31 05:40] LABS: HCT 39.7 % (39.0-53.0); HGB 13.1 gm/dL (13.0-17.5); MCV 100.2 fL (80.0-100.0); Macrocytosis Slight; Mean Platelet Volume 11.5; Platelet Count 110 k/uL (150-450); RBC 3.96 m/uL (4.30-5.90); RDW 14.4 % (11.5-15.5)
[2022-01-31 05:51] LABS: Glucose,Whole Blood 120 mg/dL (70-110)
[2022-01-31 05:54] LABS: ABG Base Excess -4.1 mmol/L; ABG HCO3 21 mmol/L (21-25); ABG Oxygen Saturation 94.5 % (94-97); ABG PCO2 36 mmHg (35-45); ABG PH 7.37 (7.35-7.45); ABG PO2 78 mmHg (83-108); ABG TCO2 22 mmol/L (19-24); Allen Test Performed? Yes
[2022-01-31 06:35] LABS: Band Neutrophils % 46 %; Metamyelocytes # (M) 0.09 k/uL (0); Metamyelocytes % 1 %; Monocytes # (M) 0.36 k/uL (0-1.0); Neutrophils % (M) 38 %; Nucleated Red Blood Cells 1 /100 WBC (0-0); Total Cells Counted 200; WBC 9.1 k/uL (3.8-10.6)
[2022-01-31 06:36] LABS: Anisocytosis (M) Present; Large Platelets Present
[2022-01-31 06:37] LABS: Polychromasia Present
[2022-01-31 08:15] LABS: Calcium 6.1 mg/dL (8.4-10.2)
--- NOTE | 2022-01-31 08:23 | XR ---
EXAMINATION TYPE: XR chest 1V portable DATE OF EXAM: 01/31/2022 COMPARISON: Chest x-ray 01/30/2022 HISTORY: Intubated TECHNIQUE: Single frontal view of the chest is obtained. FINDINGS: Endotracheal tube, NG tube, left subclavian central venous catheter are overlying appropri ate positions, stable. No evident pneumothorax. Basilar increased attenuation is present, the left he midiaphragm is obscured. Cardiomediastinal silhouette shows a similar appearance. There are overlying artifacts. IMPRESSION: Correlate for left lower lobe pneumonia versus atelectasis, associated effusion, possibl e minimal basilar atelectasis on the right
[2022-01-31] MEDS ORDERED: SODIUM BICARB 8.4% 50 ML SYR (1 MEQ/ML) IV STA ×2 (08:30→09:04)
[2022-01-31] MEDS ORDERED: CALCIUM GLUCONATE IN NACL 2 GM in SALINE 1 100ML.BAG IVPB ONE (08:30)
[2022-01-31] MEDS: FAMOTIDINE 20 MG/2 ML VIAL IV SCH (09:27)
[2022-01-31] MEDS: ASPIRIN 81 MG PO SCH (09:27)
[2022-01-31] MEDS: PIPERACILLIN-TAZOBACTAM 3.375 GM in SODIUM CHLORIDE 0.9% 100 ML IVPB SCH ×2 (09:27→20:40)
[2022-01-31] MEDS: CLOPIDOGREL 75 MG TAB PO SCH (09:27)
[2022-01-31] MEDS: CHLORHEXIDINE GLUCONATE 15 ML CUP MUCOUS MEM SCH ×2 (09:28→20:40)
[2022-01-31] MEDS: METOPROLOL TARTRATE 25 MG TAB PO SCH ×2 (09:28→20:40)
--- NOTE | 2022-01-31 09:29 | P.PN ---
Subjective Patient is seen in follow for acute kidney injury. Creatinine 5.1 today. Received 80 mg of IV Lasix yesterday and urine output improved. Currently making about 25-30 mL an hour of urine. Remains intubated. On 50% FiO2. On Levophed. Receiving IV fluids and tube feeds. Vital signs are stable. On vasopressor support. HEENT: Intubated. LUNGS: Breath sounds decreased. HEART: Rate and Rhythm are regular. ABDOMEN: Soft, no distention. EXTREMITITES: No edema. Objective - Vital Signs Vital signs: Vital Signs Temp 98.5 F 01/31/22 08:00 Pulse 78 01/31/22 08:00 Resp 16 01/31/22 08:00 BP 117/63 01/31/22 01:00 Pulse Ox 94 L 01/31/22 08:00 FiO2 50 01/31/22 08:00 Intake & Output 01/30/22 01/31/22 01/31/22 18:59 06:59 18:59 Intake Total 2562.379 6432.662 309.845 Output Total 145 340 50 Balance 5021.295 5834.662 259.845 Weight 102.5 kg Intake: IV 1200 1200 200 0.9 NaCl- 1200 1200 200 Intake, IV Titration 423.599 345.662 81.845 Amount Dextrose 5% in Water 1, 150 000 ml @ 150 mls/hr IV . Q7H40M [facility] with Sodium Bicarb (1 Meq/ml) 150 ml Rx#:[id number] Norepinephrine 4 mg In 51.752 121.617 26.474 Sodium Chloride 0.9% 250 ml @ 0.05 MCG/KG/MIN 17. 583 mls/hr IV .[id number] [facility] Rx#:[id number] Piperacillin-Tazobactam 3 100 .375 gm In Sodium Chloride 0.9% 100 ml @ 25 mls/hr IVPB Q12HR [facility] Rx #:[id number] propofoL 1,000 mg In 121.847 224.045 55.371 Empty Bag 1 bag @ 5 MCG/ KG/MIN 2.654 mls/hr IV . Q24H [facility] Rx#:[id number] Tube Feeding 170 182 28 Other 130 90 Output: Urine 145 340 50 Other: Voiding Method Indwelling Catheter Indwelling Catheter ABP, PAP, CO, CI - Last Documented Arterial Blood Pressure 117/44 - Labs CBC & Chem 7: 01/31/22 05:13 01/31/22 05:13 Labs: Abnormal Lab Results - Last 24 Hours (Table) 01/30/22 01/30/22 01/30/22 Range/Units 13:00 13:07 13:45 RBC (4.30-5.90) m/uL MCV (80.0-100.0) fL Plt Count (150-450) k/uL Metamyelocytes # (Man) (0) k/uL Nucleated RBCs (0-0) /100 WBC ABG pO2 (83-108) mmHg Chloride (98-107) mmol/L Carbon Dioxide (22-30) mmol/L BUN (9-20) mg/dL Creatinine (0.66-1.25) mg/dL Glucose (74-99) mg/dL POC Glucose (mg/dL) 69 L 125 H (70-110) mg/dL Plasma Lactic Acid Joce 2.1 H* (0.7-2.0) mmol/L Calcium (8.4-10.2) mg/dL 01/30/22 01/31/22 01/31/22 Range/Units 17:50 05:13 05:13 RBC 3.96 L (4.30-5.90) m/uL MCV 100.2 H (80.0-100.0) fL Plt Count 110 L (150-450) k/uL Metamyelocytes # (Man) 0.09 H (0) k/uL Nucleated RBCs 1 H (0-0) /100 WBC ABG pO2 (83-108) mmHg Chloride 113 H (98-107) mmol/L Carbon Dioxide 19 L (22-30) mmol/L BUN 82 H (9-20) mg/dL Creatinine 5.16 H (0.66-1.25) mg/dL Glucose 120 H (74-99) mg/dL POC Glucose (mg/dL) (70-110) mg/dL Plasma Lactic Acid Joce 2.2 H* (0.7-2.0) mmol/L Calcium 6.1 L* (8.4-10.2) mg/dL 01/31/22 01/31/22 Range/Units 05:48 05:49 RBC (4.30-5.90) m/uL MCV (80.0-100.0) fL Plt Count (150-450) k/uL Metamyelocytes # (Man) (0) k/uL Nucleated RBCs (0-0) /100 WBC ABG pO2 78 L (83-108) mmHg Chloride (98-107) mmol/L Carbon Dioxide (22-30) mmol/L BUN (9-20) mg/dL Creatinine (0.66-1.25) mg/dL Glucose (74-99) mg/dL POC Glucose (mg/dL) 120 H (70-110) mg/dL Plasma Lactic Acid Joce (0.7-2.0) mmol/L Calcium (8.4-10.2) mg/dL Microbiology - Last 24 Hours (Table) 01/28/22 03:20 Gram Stain - Final Sputum Sputum Culture - Final Assessment and Plan Plan: Assessment: 1. Acute kidney injury secondary to ATN secondary to cardiac arrest. Baseline creatinine near 1 and is up to 5.16 today. Urine output improved post IV Lasix given 01/30/2022. No hydronephrosis noted on kidney ultrasound. 2. Status post V. fib arrest on 02/24/2022. 3. Coronary disease status post right PDA stenting on 02/24/2022. 4. Shock liver. 5. Fever. Questionable aspiration pneumonia. On antibiotics. 6. Anoxic brain injury. Improving. Neurology following. 7. Metabolic acidosis secondary to acute kidney injury, IV fluids and lactic ac idosis. 8. Hypocalcemia secondary to acute kidney injury. Plan: Maintain IV fluids - decrease rate to 75 mL an hour. Maintain tube feeds. 2 A of sodium bicarb IV push today. Replace calcium. Wean FiO2 and vasopressors. Follow-up echocardiogram. Will repeat IV Lasix if urine output drops again. Continue to assess daily for need for renal placement therapy. No urgency at this time. Check phosphorus level.
--- NOTE | 2022-01-31 10:32 | P.PN ---
Subjective PROGRESS NOTE The patient is a 61-year-old male with a known history of CAD, chronic tobacco use, paroxysmal atrial fibrillation who presented with cardiac arrest and ventricular fibrillation per EMS requiring cardioversion 4. On his initial EKG he was in atrial fibrillation with ST segment elevation inferiorly and underwent stenting of his right PDA. He continues to be intubated, in sinus mechanism with improvement in his ST elevation. He is on no vasopressor. His urinary output is stable. He has no evidence of recurrent ventricular t achycardia. In the past his left ventricle systolic function was normal. January 29: The patient remains intubated in sinus tachycardia. There is no evidence of ventricular ectopic activity. He was febrile earlier. He remains sedated. He had some movement of his arms yesterday. He has an elevation of his liver function test as well as worsening of his renal functions. His urine output is low but stable. His blood pressure has been stable. He has no further ventricle tachycardia. He is acidotic and being started on sodium bicarb drip. He underwent placement of an art line and triple lumen yesterday. 01/30 Patient seen and examined. Patient remains intubated and sedated. Per nursing patient had sedation holiday without purposeful movements. His liver enzymes have increase most consistent with shock liver as well as creatinine increasing. He has been receiving IV fluids with normal saline at 100 mL per hour in addition to bicarb drip at 150 mL per hour. Has been off and on low-dose norepinephrine. Echocardiogram pending this morning. 01/31 Patient seen and examined. Echocardiogram performed yesterday shows EF 50-55%. Remains intubated and sedated. Patient is on sedation holiday and currently more lethargic however per nurse he was following some commands with neurology. Has been off of norepinephrine over the last 2 hours. He did receive Lasix 80 mg IV push 1 with improvement in urine output approximately 25 mL per hour currently. Creatinine again increased up to 5 and nephrology has been following. Medications: Vitals reviewed LUNGS: Clear to auscultation anteriorly, no wheezes HEART: Regular rate and rhythm, S1, S2. No S3. No systolic murmur ABDOMEN: Soft, nontender, no organomegaly EXTREMETIES: No edema. Intubated and sedated IMPRESSION: 1. Acute cardiac arrest with ventricular fibrillation status post cardioversion. Continues to be in sinus mechanism 2. Evidence of acute inferior myocardial infarction on admission with stenting of the PDA patent stent in the mid RCA 3. Prior history of paroxysmal atrial fibrillation 4. History of hyperlipidemia 5. Rule out anoxic encephalopathy 6. Chronic tobacco use 7. Worsening liver functions, likely shock liver 8. Prior history of DVT 9. Fever possible aspiration pneumonia 10. Acute renal injury PLAN: Echocardiogram with predominantly preserved EF 50-55%. Low-tension appears to be improving and off of vasopressors. Appears to have some improvement in neurologic function. Continue metoprolol as tolerated. Nephrology recommendations appreciated. Monitor any function. Further recommendations to follow. Objective - Vital Signs Vital signs: Vital Signs Temp 98.5 F 01/31/22 08:00 Pulse 78 01/31/22 08:00 Resp 16 01/31/22 08:00 BP 117/63 01/31/22 01:00 Pulse Ox 94 L 01/31/22 08:00 FiO2 50 01/31/22 08:00 Intake & Output 01/30/22 01/31/22 01/31/22 18:59 06:59 18:59 Intake Total 4960.395 0014.662 309.845 Output Total 145 340 50 Balance 7418.489 2394.662 259.845 Weight 102.5 kg 102.5 kg Intake: IV 1200 1200 200 0.9 NaCl- 1200 1200 200 Intake, IV Titration 423.599 345.662 81.845 Amount Dextrose 5% in Water 1, 150 000 ml @ 150 mls/hr IV . Q7H40M [facility] with Sodium Bicarb (1 Meq/ml) 150 ml Rx#:[id number] Norepinephrine 4 mg In 51.752 121.617 26.474 Sodium Chloride 0.9% 250 ml @ 0.05 MCG/KG/MIN 17. 583 mls/hr IV .[id number] [facility] Rx#:[id number] Piperacillin-Tazobactam 3 100 .375 gm In Sodium Chloride 0.9% 100 ml @ 25 mls/hr IVPB Q12HR [facility] Rx #:[id number] propofoL 1,000 mg In 121.847 224.045 55.371 Empty Bag 1 bag @ 5 MCG/ KG/MIN 2.654 mls/hr IV . Q24H [facility] Rx#:[id number] Tube Feeding 170 182 28 Other 130 90 Output: Urine 145 340 50 Other: Voiding Method Indwelling Catheter Indwelling Catheter ABP, PAP, CO, CI - Last Documented Arterial Blood Pressure 117/44 - Labs CBC & Chem 7: 01/31/22 05:13 01/31/22 05:13 Labs: Abnormal Lab Results - Last 24 Hours (Table) 01/30/22 01/30/22 01/30/22 Range/Units 13:00 13:07 13:45 RBC (4.30-5.90) m/uL MCV (80.0-100.0) fL Plt Count (150-450) k/uL Metamyelocytes # (Man) (0) k/uL Nucleated RBCs (0-0) /100 WBC ABG pO2 (83-108) mmHg Chloride (98-107) mmol/L Carbon Dioxide (22-30) mmol/L BUN (9-20) mg/dL Creatinine (0.66-1.25) mg/dL Glucose (74-99) mg/dL POC Glucose (mg/dL) 69 L 125 H (70-110) mg/dL Plasma Lactic Acid Joce 2.1 H* (0.7-2.0) mmol/L Calcium (8.4-10.2) mg/dL 01/30/22 01/31/22 01/31/22 Range/Units 17:50 05:13 05:13 RBC 3.96 L (4.30-5.90) m/uL MCV 100.2 H (80.0-100.0) fL Plt Count 110 L (150-450) k/uL Metamyelocytes # (Man) 0.09 H (0) k/uL Nucleated RBCs 1 H (0-0) /100 WBC ABG pO2 (83-108) mmHg Chloride 113 H (98-107) mmol/L Carbon Dioxide 19 L (22-30) mmol/L BUN 82 H (9-20) mg/dL Creatinine 5.16 H (0.66-1.25) mg/dL Glucose 120 H (74-99) mg/dL POC Glucose (mg/dL) (70-110) mg/dL Plasma Lactic Acid Joce 2.2 H* (0.7-2.0) mmol/L Calcium 6.1 L* (8.4-10.2) mg/dL 01/31/22 01/31/22 Range/Units 05:48 05:49 RBC (4.30-5.90) m/uL MCV (80.0-100.0) fL Plt Count (150-450) k/uL Metamyelocytes # (Man) (0) k/uL Nucleated RBCs (0-0) /100 WBC ABG pO2 78 L (83-108) mmHg Chloride (98-107) mmol/L Carbon Dioxide (22-30) mmol/L BUN (9-20) mg/dL Creatinine (0.66-1.25) mg/dL Glucose (74-99) mg/dL POC Glucose (mg/dL) 120 H (70-110) mg/dL Plasma Lactic Acid Joce (0.7-2.0) mmol/L Calcium (8.4-10.2) mg/dL Microbiology - Last 24 Hours (Table) 01/28/22 03:20 Gram Stain - Final Sputum Sputum Culture - Final
--- NOTE | 2022-01-31 11:51 | P.PN ---
Subjective Progress Note Date: 01/31/22 The patient was seen at bedside and per nurse he continues to be very drowsy and following some simple commands. It seems his kidney function is worsening. Objective - Vital Signs Vital signs: Vital Signs Temp 98.5 F 01/31/22 08:00 Pulse 88 01/31/22 11:04 Resp 24 01/31/22 11:00 BP 117/63 01/31/22 01:00 Pulse Ox 96 01/31/22 11:00 FiO2 50 01/31/22 10:46 Intake & Output 01/30/22 01/31/22 01/31/22 18:59 06:59 18:59 Intake Total 2964.432 7090.662 617.845 Output Total 145 340 105 Balance 8432.882 4733.662 512.845 Weight 102.5 kg 102.5 kg Intake: IV 1200 1200 200 0.9 NaCl- 1200 1200 200 Intake, IV Titration 423.599 345.662 331.845 Amount Calcium Gluconate in NaCl 100 2 gm In Saline 1 100ml. bag @ 100 mls/hr IVPB ONCE ONE Rx#:[id number] Dextrose 5% in Water 1, 150 000 ml @ 150 mls/hr IV . Q7H40M [facility] with Sodium Bicarb (1 Meq/ml) 150 ml Rx#:[id number] Norepinephrine 4 mg In 51.752 121.617 26.474 Sodium Chloride 0.9% 250 ml @ 0.05 MCG/KG/MIN 17. 583 mls/hr IV .[id number] [facility] Rx#:[id number] Piperacillin-Tazobactam 3 100 .375 gm In Sodium Chloride 0.9% 100 ml @ 25 mls/hr IVPB Q12HR [facility] Rx #:[id number] Sodium Chloride 0.9% 1, 150 000 ml @ 75 mls/hr IV . [id number] [facility] Rx#:[id number] propofoL 1,000 mg In 121.847 224.045 55.371 Empty Bag 1 bag @ 5 MCG/ KG/MIN 2.654 mls/hr IV . Q24H [facility] Rx#:[id number] Tube Feeding 170 182 56 Other 130 90 30 Output: Urine 145 340 105 Other: Voiding Method Indwelling Catheter Indwelling Catheter ABP, PAP, CO, CI - Last Documented Arterial Blood Pressure 161/58 - Exam GENERAL: The patient is lying in bed and does not appear in acute distress. LUNG: Intubated on ventilator. NEUROLOGICAL: Limited: IV Propofol 35mcg/kg/min is held currently for 2 hours Higher mental function: The patient is very drowsy but is awakeable to voice. Is following simple commands.. Cranial nerves: Opens his eyes to voice. No facial weakness. Is breathing over the vent. Motor: The strength is lifting slight his upper side to side and slightly attempting to lift above bed (lifting the left side more the right side). Sensation: Unable to assess and with painful stimuli not withdrawing. SOME OF THE WORK-UP DURING THIS HOSPITAL VISIT CONSISTED OF: Patient liver function is trending up Ammonia level is 10. Creatning is 5.16 CT of the head is reported as no evidence of for acute subacute CVA. I personally reviewed the CT of the head and there is no acute intracranial process seen at this time. There is no bleeding. There is no mass effect and was able to appreciate that. Routine EEG is abnormal. The background slowing is suggestive of mild encephalopathy. Otherwise there is no focal slowing, epileptiform discharges or seizure on the EEG. - Labs CBC & Chem 7: 01/31/22 05:13 01/31/22 05:13 Labs: Abnormal Lab Results - Last 24 Hours (Table) 01/30/22 01/30/22 01/30/22 Range/Units 13:00 13:07 13:45 RBC (4.30-5.90) m/uL MCV (80.0-100.0) fL Plt Count (150-450) k/uL Metamyelocytes # (Man) (0) k/uL Nucleated RBCs (0-0) /100 WBC ABG pO2 (83-108) mmHg Chloride (98-107) mmol/L Carbon Dioxide (22-30) mmol/L BUN (9-20) mg/dL Creatinine (0.66-1.25) mg/dL Glucose (74-99) mg/dL POC Glucose (mg/dL) 69 L 125 H (70-110) mg/dL Plasma Lactic Acid Joce 2.1 H* (0.7-2.0) mmol/L Calcium (8.4-10.2) mg/dL 01/30/22 01/31/22 01/31/22 Range/Units 17:50 05:13 05:13 RBC 3.96 L (4.30-5.90) m/uL MCV 100.2 H (80.0-100.0) fL Plt Count 110 L (150-450) k/uL Metamyelocytes # (Man) 0.09 H (0) k/uL Nucleated RBCs 1 H (0-0) /100 WBC ABG pO2 (83-108) mmHg Chloride 113 H (98-107) mmol/L Carbon Dioxide 19 L (22-30) mmol/L BUN 82 H (9-20) mg/dL Creatinine 5.16 H (0.66-1.25) mg/dL Glucose 120 H (74-99) mg/dL POC Glucose (mg/dL) (70-110) mg/dL Plasma Lactic Acid Joce 2.2 H* (0.7-2.0) mmol/L Calcium 6.1 L* (8.4-10.2) mg/dL 01/31/22 01/31/22 Range/Units 05:48 05:49 RBC (4.30-5.90) m/uL MCV (80.0-100.0) fL Plt Count (150-450) k/uL Metamyelocytes # (Man) (0) k/uL Nucleated RBCs (0-0) /100 WBC ABG pO2 78 L (83-108) mmHg Chloride (98-107) mmol/L Carbon Dioxide (22-30) mmol/L BUN (9-20) mg/dL Creatinine (0.66-1.25) mg/dL Glucose (74-99) mg/dL POC Glucose (mg/dL) 120 H (70-110) mg/dL Plasma Lactic Acid Joce (0.7-2.0) mmol/L Calcium (8.4-10.2) mg/dL Microbiology - Last 24 Hours (Table) 01/28/22 03:20 Gram Stain - Final Sputum Sputum Culture - Final Assessment and Plan Assessment: Anoxic encephalopathy due to cardiac arrest--improving Has also component of metabolic and uremic encephalopathy Acute cardiac arrest out of the hospital. Unknown exact downtown. Patient was in V. fib and required epinephrine, amiodarone and CPR with 4 defibrillation Acute inferior wall ST segment elevation MT status post cardiac cath of the PDA Hepatic shock due to cardiac arrest---trending up Acute kidney injury--trending up Proximal atrial fibrillation currently in sinus rhythm History of coronary artery disease status post stenting of the right ICA Previous TIA in 2010 Chronic gout Hepatitis A History of diverticular perforation/colostomy History of DVT Chronic back pain Plan: Ordered repeat CT head since moving the left more than the right to rule out any watershed stroke as result of his cardiac arrest. Q2 hour neuro checks. We'll defer the rest of the medical management to the cardiology primary and ICU team Condition is very guarded at this time. Patient IV Propofol is held today and patient was following some simple commands. He is making some improvement. Will continue to monitor. The plan was discussed with the patient's nursing staff. J Luis Vila M.D. Neuro-hospitalist Time with Patient: Less than 30
[2022-01-31 12:54] LABS: Albumin 1.9 g/dL (3.5-5.0); Total Bilirubin 1.6 mg/dL (0.2-1.3)
[2022-01-31 13:14] LABS: Glucose,Whole Blood 125 mg/dL (70-110)
--- NOTE | 2022-01-31 13:19 | P.PN ---
Subjective Progress Note Date: 01/31/22 Principal diagnosis: Cardiac arrest and acute hypoxic respiratory failure secondary to cardiac, 61-year-old male patient was brought into the hospital after he sustained a cardiac arrest at home. The patient apparently was in V. fib arrest. His have coronary artery disease. The patient also is known to have paroxysmal atrial fibrillation. Family found the patient collapsed on the floor and EMS arrived within 3 minutes after the call. The patient was found to be unresponsive. His breathing was agonal. He had no pulse. He was in V. fib. He required 4 attempts of atrial fibrillation. He was given epinephrine 4 rounds a total of 4 mg and he was also given amiodarone. He was brought into the emergency and initial blood pressure was 186/129. The patient's EKG showed ST segment elevation inferior wall myocardial infarction along with underlying atrial fibrillation. The patient was taken for immediate cardiac catheterization and the patient was found to have significant disease in the right PDA, patent stent in the mid RCA, mild disease in the left circumflex and RCA, successful stenting of the right PDA was done without any issues. The patient's LAD and left main had some minimal disease without any high-grade stenosis. The PDA had 80-85% lesion and appropriate stenting was done. The patient was started on aspirin and Plavix. The patient was kept intubated on was brought into the intensive care unit. This morning, the patient is sedated and he is on propofol at the rate of 25 mcg/kg per minute and is adequately sedated without any issues. He is quite successful mechanical ventilator. He is currently on assist control mode at the rate of 24 with a tidal volume of 500 and FiO2 of 50% with a PEEP of 5. His cardiac rhythm is sinus at this point in time. His chest x-ray is showing adequate expansion for both lungs. ET tube is in a good location. No airspace disease or pulmonary infiltrates. There is some mild cardiomegaly noted on the chest x-ray. The patient's blood gases initially showed a pH of 7.17 with a pCO2 of 40 and pO2 of 96 and the follow-up blood gases to be done this morning. Hemodynamically, he is stable on no pressors. His blood work showed a troponin of 1.5 max atelectatic acid level initially was at 5.0 dropped down to 3.4. Serum bicarb was at 14. BUN is at 19 with a creatinine of 1.2 and the sodium is at 140. White cell count 22.1 with a hemoglobin of 17.6. Current temperature is 90.6F. The patient is currently on aspirin and Plavix. The patient is also on metoprolol at a dose of 25 mg by mouth twice a day. He is also on Zestril 2.5 mg by mouth daily for blood pressure control and he is also on high-dose statins. Noted the patient was taken Xarelto on outpatient basis which I'm assuming given to him for paroxysmal atrial fibrillation. CAT scan of the brain has not been done yet. No seizure activity has been noted. On 01/29/2022, seeing the patient for a follow-up. The patient is post V. fib arrest. The patient remains sedated on propofol and the patient remains unresponsive. No seizure activity has been noted. The patient is currently off her before running at 45 mcg/kg per minute. Were unable to do sedation holiday as the patient remains quite unstable at this point in time. On today's evaluation, the patient remains on propofol. The patient remains on a mechanical ventilator on assist control mode at the rate of 24 with a tidal volume of 500 a FiO2 of 60% with a PEEP of 5. The patient's blood gas showed a pH of 7.09 with a pCO2 of 35 and a pO2 of 96. Chest x-ray shows no evidence of any pneumonia and ET tube is in a good location. The patient spiked a temp erature 100.5. This could be a central fever. Aspiration cannot be ruled out and the patient will be started on IV Zosyn. Furthermore, the patient was having issues with an elevated lactic acid level yesterday. Lactic acid level was as high as 6. The patient was given a total of 2 L of IV fluids. Based on the underlying non-anion gap Metabolic acidosis, the patient was started on a bicarb infusion after being given a total of 5 mEq IV push. Note that the morning blood work shows a sodium of 142 with a potassium of 5.8, serum bicarb is at 11 with a chloride of 122. The BUN is at 33 with a creatinine of 2.1. The patient has a urine output of around 20 mL an hour of urine output has dr opped and the patient has sustained an acute kidney injury. Norepinephrine infusion is off. The patient has developed also a shock liver with an AST of 2033 and an ALT of 2976. Condition remains extremely critical at this point in time. Reevaluated today on 01/30/2022, patient remains in the ICU, intubated and mechanically ventilated. He is on assist control rate of 24th of volume 500 FiO2 50% and PEEP of 5. ABG earlier on 60% FiO2 showed a pO2 of 130 pCO2 37 pH of 7.40 and sodium bicarb was discontinued. Patient is on propofol at 20 mcg/kg/m he is also on norepinephrine at 0.02 mcg/kg/m IV fluid at 100 mL per hour, CVP is around 7. Chest x-ray is showing evidence of interstitial edema /infiltrates, however his CVP is 7 and I'm recommending that we continue IV fluids. Patient remains sedated, apparently he had metabolic encephalopathy secondary to his cardiac arrest, patient is status post stent placement to the PDA. EEG showed encephalopathy but no evidence of seizures. WBC count is 8 hemoglobin is 13.8 electrolytes are normal renal profile showed a BUN of 59 and creatinine 3.77, worsening since admission. RTC the patient developed acute kidney injury. Reevaluated today on 01/31/22, patient remains in the ICU, intubated and mechanically ventilated. Patient is drowsy but following simple instructions. He is generally weak. He is on assist control rate of 24th volume 500 FiO2 50% and PEEP of 5 ABG showed a pO2 of 78 pCO2 36 pH of 7.37 he is presently off propofol to be evaluated by neurology while off propofol. Patient opens eyes to voice, however he is extremely weak able to wiggle toes at times. But could not squeeze my hands. Patient is now off norepinephrine and off all drips. WBC count is 9.1 hemoglobin 13.1 platelets are 110. Electrolytes are normal however his bicarb is 19 normal anion gap. BUN is 82 creatinine 5.16, steadily rising, and the patient is being followed by nephrology, be considered for possible hemodialysis, however considering the patient has decent urine output in the range of 25-50 mL/h, no immediate plans to dialyze the patient at this point Objective - Vital Signs Vital signs: Vital Signs Temp 98.5 F 01/31/22 12:00 Pulse 79 01/31/22 13:00 Resp 28 H 01/31/22 13:00 BP 117/63 01/31/22 01:00 Pulse Ox 94 L 01/31/22 13:00 FiO2 50 01/31/22 12:00 Intake & Output 01/30/22 01/31/22 01/31/22 18:59 06:59 18:59 Intake Total 6373.312 7069.662 842.845 Output Total 145 340 240 Balance 4075.121 4872.662 602.845 Weight 102.5 kg 102.5 kg Intake: IV 1200 1200 200 0.9 NaCl- 1200 1200 200 Intake, IV Titration 423.599 345.662 556.845 Amount Calcium Gluconate in NaCl 100 2 gm In Saline 1 100ml. bag @ 100 mls/hr IVPB ONCE ONE Rx#:[id number] Dextrose 5% in Water 1, 150 000 ml @ 150 mls/hr IV . Q7H40M [facility] with Sodium Bicarb (1 Meq/ml) 150 ml Rx#:[id number] Norepinephrine 4 mg In 51.752 121.617 26.474 Sodium Chloride 0.9% 250 ml @ 0.05 MCG/KG/MIN 17. 583 mls/hr IV .[id number] [facility] Rx#:[id number] Piperacillin-Tazobactam 3 100 .375 gm In Sodium Chloride 0.9% 100 ml @ 25 mls/hr IVPB Q12HR [facility] Rx #:[id number] Sodium Chloride 0.9% 1, 375 000 ml @ 75 mls/hr IV . [id number] [facility] Rx#:[id number] propofoL 1,000 mg In 121.847 224.045 55.371 Empty Bag 1 bag @ 5 MCG/ KG/MIN 2.654 mls/hr IV . Q24H [facility] Rx#:[id number] Tube Feeding 170 182 56 Other 130 90 30 Output: Urine 145 340 240 Other: Voiding Method Indwelling Catheter Indwelling Catheter ABP, PAP, CO, CI - Last Documented Arterial Blood Pressure 149/53 - Exam Physical Exam: Revealed a 61-year-old white male, intubated, mechanically ventilated, off sedation, follows very simple instructions but generally weak. Head: Atraumatic, normocephalic. HEENT:[Neck is supple.] [No neck masses.] [No thyromegaly.] [No JVD.] Chest: [Symmetrical chest expansion, crackles at the bases, no rhonchi and no wheezes..] Cardiac Exam: [Normal S1 and S2, no S3 gallop, no murmur.] Abdomen: [Soft, nontender, no megaly, no rebound, no guarding, normal bowel sounds.] Extremities: [No clubbing, no edema, no cyanosis.] Neurological Exam: Patient is off propofol, opens eyes to verbal stimuli, tries to follow instructions but generally weak. Able to wiggle toes. But could not squeeze hands Psychiatric could not be assessed - Labs CBC & Chem 7: 01/31/22 05:13 01/31/22 05:13 Labs: Abnormal Lab Results - Last 24 Hours (Table) 01/30/22 01/30/22 01/30/22 Range/Units 13:00 13:45 17:50 RBC (4.30-5.90) m/uL MCV (80.0-100.0) fL Plt Count (150-450) k/uL Metamyelocytes # (Man) (0) k/uL Nucleated RBCs (0-0) /100 WBC ABG pO2 (83-108) mmHg Chloride (98-107) mmol/L Carbon Dioxide (22-30) mmol/L BUN (9-20) mg/dL Creatinine (0.66-1.25) mg/dL Glucose (74-99) mg/dL POC Glucose (mg/dL) 125 H (70-110) mg/dL Plasma Lactic Acid Joce 2.1 H* 2.2 H* (0.7-2.0) mmol/L Calcium (8.4-10.2) mg/dL 01/31/22 01/31/22 01/31/22 Range/Units 05:13 05:13 05:48 RBC 3.96 L (4.30-5.90) m/uL MCV 100.2 H (80.0-100.0) fL Plt Count 110 L (150-450) k/uL Metamyelocytes # (Man) 0.09 H (0) k/uL Nucleated RBCs 1 H (0-0) /100 WBC ABG pO2 78 L (83-108) mmHg Chloride 113 H (98-107) mmol/L Carbon Dioxide 19 L (22-30) mmol/L BUN 82 H (9-20) mg/dL Creatinine 5.16 H (0.66-1.25) mg/dL Glucose 120 H (74-99) mg/dL POC Glucose (mg/dL) (70-110) mg/dL Plasma Lactic Acid Joce (0.7-2.0) mmol/L Calcium 6.1 L* (8.4-10.2) mg/dL 01/31/22 Range/Units 05:49 RBC (4.30-5.90) m/uL MCV (80.0-100.0) fL Plt Count (150-450) k/uL Metamyelocytes # (Man) (0) k/uL Nucleated RBCs (0-0) /100 WBC ABG pO2 (83-108) mmHg Chloride (98-107) mmol/L Carbon Dioxide (22-30) mmol/L BUN (9-20) mg/dL Creatinine (0.66-1.25) mg/dL Glucose (74-99) mg/dL POC Glucose (mg/dL) 120 H (70-110) mg/dL Plasma Lactic Acid Joce (0.7-2.0) mmol/L Calcium (8.4-10.2) mg/dL Microbiology - Last 24 Hours (Table) 01/28/22 03:20 Gram Stain - Final Sputum Sputum Culture - Final Assessment and Plan Assessment: Impression: Acute hypoxic respiratory failure secondary to cardiac arrest Cardiac arrest with ventricular fibrillation status post cardioversion, patient is in sinus rhythm. Acute inferior wall myocardial infarction status post stenting of the PDA, patent stent in mid RCA. Paroxysmal atrial fibrillation Tobacco dependence syndrome Previous history of DVT Possible aspiration pneumonia Acute kidney injury, acute tubular necrosis Shock liver secondary to cardiac arrest Possible anoxic brain injury/encephalopathy History of underlying COPD Chronic low back pain History of colostomy and reversal Recommendation: Continue ventilatory support Continue hemodynamic support, if needed presently off norepinephrine Continue GI and DVT prophylaxis Nutritional support/enteral feeding Continue to monitor renal and liver profile. Nephrology may consider hemodialysis but not at this point yet Continue Zosyn/empiric coverage for aspiration pneumonia We will continue to follow. Patient is critically ill. Critical care time is over 30 minutes Time with Patient: Greater than 30
--- NOTE | 2022-01-31 16:31 | CT ---
EXAMINATION TYPE: CT brain wo con CT DLP: 1216.4 mGycm, Automated exposure control for dose reduction was used. DATE OF EXAM: 01/31/2022 4:18 PM COMPARISON: Prior CT Brain from 01/28/2022. CLINICAL INDICATION:Male, 61 years old with history of cardiac arrest Moving left > right, cardiac ar rest. vented patient TECHNIQUE: Brain: Multiple axial CT images of the brain were obtained without IV contrast. FINDINGS: Brain: Extra-axial spaces: No abnormal extra-axial fluid collections. Ventricular system: Within normal limits Cerebral parenchyma: Questionable area of dodson-white loss differentiation involving the left occipita l lobe best appreciated on series 201 image 34 and series 202 image 61. No acute intraparenchymal hem orrhage or mass effect. The remainder of the dodson-white junctions are well differentiated. Cerebellum: Unremarkable. Mass effect: No evidence of midline shift. Intracranial vasculature: Atherosclerotic calcifications of the intracranial vessels. Soft tissues: Normal. Calvarium/osseous structures: No depressed skull fracture. Paranasal sinuses and mastoid air cells: Mild scattered paranasal sinus disease. Visualized orbits: Bilateral aphakia Other: Endotracheal nasogastric tubes are partially visualized. IMPRESSION: Loss of dodson-white matter differentiation of the left occipital lobe could represent acute/subacute C VA. This can be confirmed with MRI.
[2022-01-31 17:59] LABS: Glucose,Whole Blood 132 mg/dL (70-110)
[2022-01-31] MEDS: ATORVASTATIN 80 MG TAB PO SCH (20:40)
[2022-01-31] MEDS: NOREPINEPHRINE 4 MG in SODIUM CHLORIDE 0.9% 250 ML IV SCH ×2 (22:05→22:06)
[2022-01-31 23:44] LABS: Glucose,Whole Blood 112 mg/dL (70-110)
[2022-02-01] MEDS: INSULIN ASPART (NovoLOG) 100 UNIT/ML VIAL SQ SCH ×4 (00:09→17:48)
[2022-02-01] MEDS: IPRATROPIUM-ALBUTEROL 3 ML NEB INHALATION SCH ×6 (00:37→19:45)
[2022-02-01] MEDS: methylPREDNISolone SOD SUCCI 40 MG/ML 1 ML VIAL IV SCH ×3 (00:55→15:45)
[2022-02-01] MEDS: MORPHINE SULFATE 4 MG/ML SYRINGE IVP PRN ×3 (04:59→17:48)
[2022-02-01 05:17] LABS: HCT 38.2 % (39.0-53.0); HGB 12.7 gm/dL (13.0-17.5); MCH 33.3 pg (25.0-35.0); MCHC 33.3 g/dL (31.0-37.0); MCV 99.9 fL (80.0-100.0); Macrocytosis Slight; Mean Platelet Volume 11.9; Platelet Count 100 k/uL (150-450); RBC 3.82 m/uL (4.30-5.90); RDW 14.5 % (11.5-15.5); WBC 15.3 k/uL (3.8-10.6)
[2022-02-01 05:43] LABS: ABG Base Excess -3.1 mmol/L; ABG HCO3 22 mmol/L (21-25); ABG Oxygen Saturation 89.7 % (94-97); ABG PCO2 35 mmHg (35-45); ABG PO2 60 mmHg (83-108); ABG TCO2 23 mmol/L (19-24); Allen Test Performed? Yes
[2022-02-01 06:26] LABS: Potassium 3.7 mmol/L (3.5-5.1)
[2022-02-01 06:28] LABS: Glucose,Whole Blood 115 mg/dL (70-110)
[2022-02-01] MEDS: SODIUM CHLORIDE 0.9% 1,000 ML IV SCH (06:29)
[2022-02-01 06:40] LABS: Calcium 6.4 mg/dL (8.4-10.2)
[2022-02-01] MEDS ORDERED: CALCIUM GLUCONATE IN NACL 2 GM in SALINE 1 100ML.BAG IVPB ONE (07:35)
--- NOTE | 2022-02-01 07:35 | P.PN ---
Subjective This is a 61 years old female with past medical history of COPD, Deep Vein Thrombosis (DVT), GERD/Reflux, Hyperlipidemia, HypertensionOsteoarthritis , coronary artery disease status post stent info obtained from chart and staff witnessed arrest, cardiac arrest, shocked x2 and 4 EPIs given PHYSICIAN NEONATOLOGY, pulses returned upon arrival to ER room, on admission found to have inferior ST elevation He underwent emergent cardiac cath showing significant disease of the right PDA, status post stents but patent stent in RCA Blood pressure 123/84 Saturating 97%. Pulse is 89 patient is afebrile. leukocytosis 22.1, ph 7.1. Elevated lactic acid at 5.0. Creatinine 1.2 and after discussed with the normal limits. Liver enzymes elevated 847 AST and 636 ALT Urinalysis showed 2+ protein and large blood Chest x-ray: No consolidation 01/29/2022 Patient remains intubated and sedated in the ICU with pulmonary/critical care team following her closely as well as c cardiology team. She is on FiO2 of 60%. Note BC 21.5, creatinine 3.1, she has urine output. Calcium 6.4, liver enzymes significantly elevated. PH is 7.3 urine analysis: Protein and RBC FOBT positive EEG no epileptiform discharge. Chest x-ray: No acute process Morphine added for better pain control. She remains on Zosyn and sodium bicarb She is on aspirin and Plavix, metoprolol and Lipitor per vtc technician 01/30/2022 Patient remains in the ICU on mechanical ventilation, his FiO2 today is 50%. Pulmonary/critical care team following closely. WBC improved to 8.1, creatinine 3.7, patient is still making urine although less amount. Calcium is better. Liver enzymes trended up. Patient continued on aspirin Plavix and other cardiac medications Remains on Zosyn PH is 7.4 today and bicarb drip was stopped. Patient is started on IV Solu-Medrol today 40 mg every 8 hours Neurologically is improving while off propofol however full Evaluation is pending 01/31/2022 Patient remains in the ICU intubated and sedated with pulmonary/critical care team following closely. FiO2 50 and PEEP is 5. WC9.1, hemoglobin 13.1, lactic acid count 110. Creatinine went up to 5.1, calcium 6.1, liver enzymes are slightly trending down however they are still significantly elevated. Bilirubin is 1.6. She remains on Solu-Medrol, Zosyn, aspirin and Plavix. Echocardiogram showing ejection fraction of 50-55% Patient is followed closely by pulmonary, cardiology and nephrology services review of system: n/A Active Medications Generic Name Dose Route Start Last Admin Trade Name Freq PRN Reason Stop Dose Admin Al Hydroxide/Mg Hydroxide 30 ml 01/28/22 02:47 Mag Hydrox/Al Hydrox/Simeth 30 Ml Cup PO Q4HR PRN Heartburn Albuterol/Ipratropium 3 ml 01/30/22 12:00 02/01/22 04:11 Ipratropium-Albuterol 3 Ml Neb INHALATION 3 ml RT-Q4H [facility] Administration Albuterol/Ipratropium 3 ml 01/30/22 10:08 Ipratropium-Albuterol 3 Ml Neb INHALATION RT-Q2H PRN Shortness Of Breath Or Wheezing Aspirin 81 mg 01/28/22 09:00 01/31/22 09:27 Aspirin 81 Mg PO 81 mg DAILY [facility] Administration Atorvastatin Calcium 80 mg 01/28/22 21:00 01/31/22 20:40 Atorvastatin 80 Mg Tab PO 80 mg HS [facility] Administration Atropine Sulfate 0.5 mg 01/28/22 02:47 Atropine Sulfate 0.1 Mg/Ml 10ml Syringe IV ONCE PRN Symptomatic Bradycardia Chlorhexidine Gluconate 15 ml 01/28/22 09:00 01/31/22 20:40 Chlorhexidine Gluconate 15 Ml Cup MUCOUS MEM 15 ml BID [facility] Administration Clopidogrel Bisulfate 75 mg 01/29/22 09:00 01/31/22 09:27 Clopidogrel 75 Mg Tab PO 75 mg DAILY [facility] Administration Protocol Famotidine 20 mg 01/30/22 09:00 01/31/22 09:27 Famotidine 20 Mg/2 Ml Vial IV 20 mg DAILY [facility] Administration Propofol 1,000 mg/ IV Solution 100 mls @ 2.654 mls/hr 01/28/22 03:45 02/01/22 06:45 IV 47.11 mcg/kg/min .Q24H [facility] 25.002 mls/hr Administration Protocol 5 MCG/KG/MIN Norepinephrine Bitartrate 4 mg 254 mls @ 17.583 mls/hr 01/28/22 04:45 01/31/22 22:06 / Sodium Chloride IV Not Given .[id number] [facility] Protocol 0.05 MCG/KG/MIN Sodium Chloride 1,000 mls @ 75 mls/hr 01/28/22 11:30 02/01/22 06:29 Saline 0.9% IV 75 mls/hr .[id number] [facility] Administration Piperacillin Sod/Tazobactam 100 mls @ 25 mls/hr 01/29/22 10:30 01/31/22 20:40 Sod 3.375 gm/ Sodium Chloride IVPB 25 mls/hr Q12HR [facility] Administration Protocol Clevidipine 25 mg/ IV Solution 50 mls @ 2 mls/hr 01/31/22 21:45 IV .Q24H [facility] Protocol 1 MG/HR Insulin Aspart 0 unit 01/28/22 12:00 02/01/22 06:29 Insulin Aspart (Novolog) 100 Unit/Ml Vial SQ Not Given Q6H [facility] Protocol Methylprednisolone Sodium Succinate 40 mg 01/30/22 10:15 02/01/22 00:55 Methylprednisolone Sod Succi 40 Mg/Ml 1 Ml Vial IV 40 mg Q8HR [facility] Administration Metoprolol Tartrate 25 mg 01/28/22 09:00 01/31/22 20:40 Metoprolol Tartrate 25 Mg Tab PO 25 mg BID [facility] Administration Morphine Sulfate 4 mg 01/28/22 14:33 02/01/22 04:59 Morphine Sulfate 4 Mg/Ml Syringe IVP 4 mg Q4HR PRN Administration Pain Naloxone HCl 0.2 mg 01/28/22 03:38 Naloxone 0.4 Mg/Ml 1 Ml Vial IV Q2M PRN Opioid Reversal Nitroglycerin 0.4 mg 01/28/22 02:47 Nitroglycerin Sl Tabs 0.4 Mg Tab SUBLINGUAL Q5M PRN Chest Pain Zolpidem Tartrate 5 mg 01/28/22 02:47 Zolpidem 5 Mg Tab PO HS PRN Insomnia Objective - Vital Signs Vital signs: Vital Signs Temp 98.5 F 01/31/22 08:00 Pulse 78 01/31/22 08:00 Resp 16 01/31/22 08:00 BP 117/63 01/31/22 01:00 Pulse Ox 94 L 01/31/22 08:00 FiO2 50 01/31/22 08:00 Intake & Output 01/30/22 01/31/22 01/31/22 18:59 06:59 18:59 Intake Total 6897.487 3940.662 309.845 Output Total 145 340 50 Balance 4094.777 2202.662 259.845 Weight 102.5 kg Intake: IV 1200 1200 200 0.9 NaCl- 1200 1200 200 Intake, IV Titration 423.599 345.662 81.845 Amount Dextrose 5% in Water 1, 150 000 ml @ 150 mls/hr IV . Q7H40M [facility] with Sodium Bicarb (1 Meq/ml) 150 ml Rx#:[id number] Norepinephrine 4 mg In 51.752 121.617 26.474 Sodium Chloride 0.9% 250 ml @ 0.05 MCG/KG/MIN 17. 583 mls/hr IV .[id number] [facility] Rx#:[id number] Piperacillin-Tazobactam 3 100 .375 gm In Sodium Chloride 0.9% 100 ml @ 25 mls/hr IVPB Q12HR [facility] Rx #:[id number] propofoL 1,000 mg In 121.847 224.045 55.371 Empty Bag 1 bag @ 5 MCG/ KG/MIN 2.654 mls/hr IV . Q24H [facility] Rx#:[id number] Tube Feeding 170 182 28 Other 130 90 Output: Urine 145 340 50 Other: Voiding Method Indwelling Catheter Indwelling Catheter ABP, PAP, CO, CI - Last Documented Arterial Blood Pressure 117/44 - Exam -GENERAL: The patient is sedated and intubated HEENT: Pupils are round and equally reacting to light. EOMI. No scleral icterus. No conjunctival pallor. Normocephalic, atraumatic. No pharyngeal erythema. No thyromegaly. CARDIOVASCULAR: S1 and S2 present. No murmurs, rubs, or gallops. PULMONARY: Chest is clear to auscultation, no wheezing or crackles. ABDOMEN: Soft, nontender, nondistended, normoactive bowel sounds. No palpable organomegaly. MUSCULOSKELETAL: No joint swelling or deformity. EXTREMITIES: No cyanosis, clubbing, or pedal edema. NEUROLOGICAL: Gross neurological examination did not reveal any focal deficits. SKIN: No rashes. no petechiae. - Labs CBC & Chem 7: 02/01/22 04:35 02/01/22 04:35 Labs: Abnormal Lab Results - Last 24 Hours (Table) 01/30/22 01/30/22 01/30/22 Range/Units 13:00 13:07 13:45 RBC (4.30-5.90) m/uL MCV (80.0-100.0) fL Plt Count (150-450) k/uL Metamyelocytes # (Man) (0) k/uL Nucleated RBCs (0-0) /100 WBC ABG pO2 (83-108) mmHg Chloride (98-107) mmol/L Carbon Dioxide (22-30) mmol/L BUN (9-20) mg/dL Creatinine (0.66-1.25) mg/dL Glucose (74-99) mg/dL POC Glucose (mg/dL) 69 L 125 H (70-110) mg/dL Plasma Lactic Acid Joce 2.1 H* (0.7-2.0) mmol/L Calcium (8.4-10.2) mg/dL 01/30/22 01/31/22 01/31/22 Range/Units 17:50 05:13 05:13 RBC 3.96 L (4.30-5.90) m/uL MCV 100.2 H (80.0-100.0) fL Plt Count 110 L (150-450) k/uL Metamyelocytes # (Man) 0.09 H (0) k/uL Nucleated RBCs 1 H (0-0) /100 WBC ABG pO2 (83-108) mmHg Chloride 113 H (98-107) mmol/L Carbon Dioxide 19 L (22-30) mmol/L BUN 82 H (9-20) mg/dL Creatinine 5.16 H (0.66-1.25) mg/dL Glucose 120 H (74-99) mg/dL POC Glucose (mg/dL) (70-110) mg/dL Plasma Lactic Acid Joce 2.2 H* (0.7-2.0) mmol/L Calcium 6.1 L* (8.4-10.2) mg/dL 01/31/22 01/31/22 Range/Units 05:48 05:49 RBC (4.30-5.90) m/uL MCV (80.0-100.0) fL Plt Count (150-450) k/uL Metamyelocytes # (Man) (0) k/uL Nucleated RBCs (0-0) /100 WBC ABG pO2 78 L (83-108) mmHg Chloride (98-107) mmol/L Carbon Dioxide (22-30) mmol/L BUN (9-20) mg/dL Creatinine (0.66-1.25) mg/dL Glucose (74-99) mg/dL POC Glucose (mg/dL) 120 H (70-110) mg/dL Plasma Lactic Acid Joce (0.7-2.0) mmol/L Calcium (8.4-10.2) mg/dL Microbiology - Last 24 Hours (Table) 01/28/22 03:20 Gram Stain - Final Sputum Sputum Culture - Final Assessment and Plan Assessment: cardiac arrest status post CPR Inferior STEMI status post PCI to PDA Acute hypoxic respiratory failure status post intubated and mechanical ventilation Metabolic acidosis secondary to above Transaminitis secondary to above Altered mental status secondary to above, rule out anoxic brain injury History of Deep venous thrombosis on Xarelto at home Hypertension Hyperlipidemia History of GERD History of facial MRSA Plan: this is a 61 years old male presents with cardiac arrest This is a 61 years old male who presents with cardiac arrest underwent CPR. Continue with intubation and mechanical ventilation Cardiology team on the case as well as pulmonary/critical care team Continue with Zosyn Continue with IV Solu Medrol monitor creatinine and urine output and input Continue with aspirin and Plavix Other cardiac medications management deferred to cardiology team including statin, metoprolol and lisinopril small dose. Labs and medication were reviewed.. Continue same treatment. Continue with symptomatic treatment. Resume home medication. Monitor lytes and vitals. DVT and GI prophylaxis. Further recommendations as per clinical course of the patient DVT prophylaxis: Aspirin and Plavix GI Prophylaxis: Pepcid Prognosis is guarded
--- NOTE | 2022-02-01 08:13 | XR ---
EXAMINATION TYPE: XR chest 1V portable DATE OF EXAM: 02/01/2022 COMPARISON: Chest x-ray 01/31/2022 HISTORY: Intubated TECHNIQUE: Single frontal view of the chest is obtained. FINDINGS: Endotracheal tube and NG tube, left subclavian central venous catheter are overlying appro priate positions, stable. Bibasilar density is noted, the right hemidiaphragm is now obscured. Inters titium is increased. No evident pneumothorax. There are overlying artifacts. Patient is rotated. Card iac mediastinal silhouette is likely stable accounting for differences in technique. There is perihil ar vascular indistinctness. IMPRESSION: Correlate for pulmonary venous hypertension and interstitial edema, bibasilar effusions versus pneumonia or associated atelectasis.
[2022-02-01] MEDS ORDERED: SODIUM BICARB 8.4% 50 ML SYR (1 MEQ/ML) IV STA (08:50)
[2022-02-01] MEDS: CHLORHEXIDINE GLUCONATE 15 ML CUP MUCOUS MEM SCH ×2 (08:53→21:06)
[2022-02-01] MEDS: FAMOTIDINE 20 MG/2 ML VIAL IV SCH (08:54)
[2022-02-01] MEDS: PIPERACILLIN-TAZOBACTAM 3.375 GM in SODIUM CHLORIDE 0.9% 100 ML IVPB SCH ×2 (08:54→21:06)
[2022-02-01] MEDS: CLOPIDOGREL 75 MG TAB PO SCH (08:55)
[2022-02-01] MEDS: METOPROLOL TARTRATE 25 MG TAB PO SCH ×2 (08:55→21:06)
[2022-02-01] MEDS: ASPIRIN 81 MG PO SCH (08:55)
[2022-02-01] MEDS: CLEVIDIPINE BUTYRATE 25 MG in EMPTY BAG 1 BAG IV SCH (08:57)
--- NOTE | 2022-02-01 08:58 | P.PN ---
Subjective PROGRESS NOTE The patient is a 61-year-old male with a known history of CAD, chronic tobacco use, paroxysmal atrial fibrillation who presented with cardiac arrest and ventricular fibrillation per EMS requiring cardioversion 4. On his initial EKG he was in atrial fibrillation with ST segment elevation inferiorly and underwent stenting of his right PDA. He continues to be intubated, in sinus mechanism with improvement in his ST elevation. He is on no vasopressor. His urinary output is stable. He has no evidence of recurrent ventricular t achycardia. In the past his left ventricle systolic function was normal. January 29: The patient remains intubated in sinus tachycardia. There is no evidence of ventricular ectopic activity. He was febrile earlier. He remains sedated. He had some movement of his arms yesterday. He has an elevation of his liver function test as well as worsening of his renal functions. His urine output is low but stable. His blood pressure has been stable. He has no further ventricle tachycardia. He is acidotic and being started on sodium bicarb drip. He underwent placement of an art line and triple lumen yesterday. 01/30 Patient seen and examined. Patient remains intubated and sedated. Per nursing patient had sedation holiday without purposeful movements. His liver enzymes have increase most consistent with shock liver as well as creatinine increasing. He has been receiving IV fluids with normal saline at 100 mL per hour in addition to bicarb drip at 150 mL per hour. Has been off and on low-dose norepinephrine. Echocardiogram pending this morning. 01/31 Patient seen and examined. Echocardiogram performed yesterday shows EF 50-55%. Remains intubated and sedated. Patient is on sedation holiday and currently more lethargic however per nurse he was following some commands with neurology. Has been off of norepinephrine over the last 2 hours. He did receive Lasix 80 mg IV push 1 with improvement in urine output approximately 25 mL per hour currently. Creatinine again increased up to 5 and nephrology has been following. 02/01 Patient seen and examined. Patient remains sedated on propofol. Has been receiving IV fluids however increased upper and lower extremity edema and incre ased vascular congestion on chest x-ray. Blood pressures have been somewhat more elevated. Liver enzymes from yesterday somewhat improved, liver enzymes from today not resulted. Medications: Vitals reviewed LUNGS: Clear to auscultation anteriorly, no wheezes HEART: Regular rate and rhythm, S1, S2. No S3. No systolic murmur ABDOMEN: Soft, nontender, no organomegaly EXTREMETIES: 1-2+ LE edema. Intubated and sedated IMPRESSION: 1. Acute cardiac arrest with ventricular fibrillation status post cardioversion. Continues to be in sinus mechanism 2. Evidence of acute inferior myocardial infarction on admission with stenting of the PDA patent stent in the mid RCA 3. Prior history of paroxysmal atrial fibrillation 4. History of hyperlipidemia 5. Rule out anoxic encephalopathy 6. Chronic tobacco use 7. Worsening liver functions, likely shock liver 8. Prior history of DVT 9. Fever possible aspiration pneumonia 10. Acute renal injury 11. Acute on chronic diastolic heart failure, component of acute kidney injury as well PLAN: Patient appears to have increasing volume overload. Stop IV fluids. He has been receiving tube feeds nearly at goal at 45 mL per hour. Give IV Lasix and monitor response. Somewhat hypertensive and we will add hydralazine 25 4 times a day and monitor response. Follow liver enzymes. Hopeful add lisinopril if creatinine improves. Continue to monitor neurologic status. Objective - Vital Signs Vital signs: Vital Signs Temp 98 F 02/01/22 04:00 Pulse 79 02/01/22 07:57 Resp 24 02/01/22 07:00 BP 117/63 01/31/22 01:00 Pulse Ox 93 L 02/01/22 07:00 FiO2 50 02/01/22 07:42 Intake & Output 01/31/22 02/01/22 02/01/22 18:59 06:59 18:59 Intake Total 5568.942 1261 Output Total 1500 1210 Balance -64.155 679 Weight 102.5 kg 101 kg Intake: IV 200 972 0.9 NaCl- 200 Sodium Chloride 0.9% 1, 900 000 ml @ 75 mls/hr IV . [id number] [facility] Rx#:[id number] pressure bag 72 Intake, IV Titration 931.845 375 Amount Calcium Gluconate in NaCl 100 2 gm In Saline 1 100ml. bag @ 100 mls/hr IVPB ONCE ONE Rx#:[id number] Norepinephrine 4 mg In 26.474 Sodium Chloride 0.9% 250 ml @ 0.05 MCG/KG/MIN 17. 583 mls/hr IV .[id number] [facility] Rx#:[id number] Piperacillin-Tazobactam 3 100 .375 gm In Sodium Chloride 0.9% 100 ml @ 25 mls/hr IVPB Q12HR [facility] Rx #:[id number] Sodium Chloride 0.9% 1, 750 75 000 ml @ 75 mls/hr IV . [id number] [facility] Rx#:[id number] propofoL 1,000 mg In 55.371 200 Empty Bag 1 bag @ 5 MCG/ KG/MIN 2.654 mls/hr IV . Q24H [facility] Rx#:[id number] Tube Feeding 214 452 Other 90 90 Output: Urine 500 710 Stool 1000 500 Other: Voiding Method Indwelling Catheter Indwelling Catheter ABP, PAP, CO, CI - Last Documented Arterial Blood Pressure 152/50 - Labs CBC & Chem 7: 02/01/22 04:35 02/01/22 04:35 Labs: Abnormal Lab Results - Last 24 Hours (Table) 01/31/22 01/31/22 01/31/22 Range/Units 05:13 13:13 17:57 WBC (3.8-10.6) k/uL RBC (4.30-5.90) m/uL Hgb (13.0-17.5) gm/dL Hct (39.0-53.0) % Plt Count (150-450) k/uL ABG pO2 (83-108) mmHg ABG O2 Saturation (94-97) % Chloride 113 H (98-107) mmol/L Carbon Dioxide 19 L (22-30) mmol/L BUN 82 H (9-20) mg/dL Creatinine 5.16 H (0.66-1.25) mg/dL Glucose 120 H (74-99) mg/dL POC Glucose (mg/dL) 125 H 132 H (70-110) mg/dL Calcium 6.1 L* (8.4-10.2) mg/dL Ionized Calcium Dhruv (4.5-5.3) mg/dL Phosphorus (2.5-4.5) mg/dL Total Bilirubin 1.6 H (0.2-1.3) mg/dL AST 1330 H (17-59) U/L ALT 2660 H (4-49) U/L Total Protein 4.0 L (6.3-8.2) g/dL Albumin 1.9 L (3.5-5.0) g/dL 01/31/22 02/01/2222 Range/Units 23:43 04:35 04:35 WBC 15.3 H (3.8-10.6) k/uL RBC 3.82 L (4.30-5.90) m/uL Hgb 12.7 L (13.0-17.5) gm/dL Hct 38.2 L (39.0-53.0) % Plt Count 100 L (150-450) k/uL ABG pO2 (83-108) mmHg ABG O2 Saturation (94-97) % Chloride 111 H (98-107) mmol/L Carbon Dioxide 21 L (22-30) mmol/L BUN 111 H* (9-20) mg/dL Creatinine 6.15 H (0.66-1.25) mg/dL Glucose 111 H (74-99) mg/dL POC Glucose (mg/dL) 112 H (70-110) mg/dL Calcium 6.4 L* (8.4-10.2) mg/dL Ionized Calcium Dhruv (4.5-5.3) mg/dL Phosphorus 7.0 H (2.5-4.5) mg/dL Total Bilirubin (0.2-1.3) mg/dL AST (17-59) U/L ALT (4-49) U/L Total Protein (6.3-8.2) g/dL Albumin (3.5-5.0) g/dL 02/01/22 02/01/22 02/01/22 Range/Units 04:35 05:38 06:27 WBC (3.8-10.6) k/uL RBC (4.30-5.90) m/uL Hgb (13.0-17.5) gm/dL Hct (39.0-53.0) % Plt Count (150-450) k/uL ABG pO2 60 L (83-108) mmHg ABG O2 Saturation 89.7 L (94-97) % Chloride (98-107) mmol/L Carbon Dioxide (22-30) mmol/L BUN (9-20) mg/dL Creatinine (0.66-1.25) mg/dL Glucose (74-99) mg/dL POC Glucose (mg/dL) 115 H (70-110) mg/dL Calcium (8.4-10.2) mg/dL Ionized Calcium Dhruv 3.9 L (4.5-5.3) mg/dL Phosphorus (2.5-4.5) mg/dL Total Bilirubin (0.2-1.3) mg/dL AST (17-59) U/L ALT (4-49) U/L Total Protein (6.3-8.2) g/dL Albumin (3.5-5.0) g/dL
[2022-02-01] MEDS: FUROSEMIDE 10 MG/ML 10 ML VIAL IV SCH (08:59)
[2022-02-01] MEDS: hydrALAZINE HCL 25 MG TAB PO SCH ×4 (09:00→23:01)
[2022-02-01] MEDS ORDERED: POTASSIUM CHLORIDE ER 20 MEQ TAB.ER PO STA (09:40)
--- NOTE | 2022-02-01 09:41 | P.PN ---
Subjective Patient is seen in follow for acute kidney injury. Creatinine 6.1 today. Received 80 mg of IV Lasix on 01/30/2022. Urine output about 50 mL an hour. Remains intubated. On 50% FiO2. Off vasopressors. Receiving IV fluids and tube feeds. Vital signs are stable. HEENT: Intubated. LUNGS: Breath sounds decreased. HEART: Rate and Rhythm are regular. ABDOMEN: Soft, no distention. EXTREMITITES: Trace edema. Objective - Vital Signs Vital signs: Vital Signs Temp 98 F 02/01/22 04:00 Pulse 79 02/01/22 07:57 Resp 24 02/01/22 07:00 BP 117/63 01/31/22 01:00 Pulse Ox 93 L 02/01/22 07:00 FiO2 50 02/01/22 07:42 Intake & Output 01/31/22 02/01/22 02/01/22 18:59 06:59 18:59 Intake Total 2349.954 6532 Output Total 1500 1210 Balance -64.155 679 Weight 102.5 kg 101 kg Intake: IV 200 972 0.9 NaCl- 200 Sodium Chloride 0.9% 1, 900 000 ml @ 75 mls/hr IV . [id number] [facility] Rx#:[id number] pressure bag 72 Intake, IV Titration 931.845 375 Amount Calcium Gluconate in NaCl 100 2 gm In Saline 1 100ml. bag @ 100 mls/hr IVPB ONCE ONE Rx#:[id number] Norepinephrine 4 mg In 26.474 Sodium Chloride 0.9% 250 ml @ 0.05 MCG/KG/MIN 17. 583 mls/hr IV .[id number] [facility] Rx#:[id number] Piperacillin-Tazobactam 3 100 .375 gm In Sodium Chloride 0.9% 100 ml @ 25 mls/hr IVPB Q12HR [facility] Rx #:[id number] Sodium Chloride 0.9% 1, 750 75 000 ml @ 75 mls/hr IV . [id number] [facility] Rx#:[id number] propofoL 1,000 mg In 55.371 200 Empty Bag 1 bag @ 5 MCG/ KG/MIN 2.654 mls/hr IV . Q24H [facility] Rx#:[id number] Tube Feeding 214 452 Other 90 90 Output: Urine 500 710 Stool 1000 500 Other: Voiding Method Indwelling Catheter Indwelling Catheter ABP, PAP, CO, CI - Last Documented Arterial Blood Pressure 152/50 - Labs CBC & Chem 7: 02/01/22 04:35 02/01/22 04:35 Labs: Abnormal Lab Results - Last 24 Hours (Table) 01/31/22 01/31/22 01/31/22 Range/Units 05:13 13:13 17:57 WBC (3.8-10.6) k/uL RBC (4.30-5.90) m/uL Hgb (13.0-17.5) gm/dL Hct (39.0-53.0) % Plt Count (150-450) k/uL ABG pO2 (83-108) mmHg ABG O2 Saturation (94-97) % Chloride 113 H (98-107) mmol/L Carbon Dioxide 19 L (22-30) mmol/L BUN 82 H (9-20) mg/dL Creatinine 5.16 H (0.66-1.25) mg/dL Glucose 120 H (74-99) mg/dL POC Glucose (mg/dL) 125 H 132 H (70-110) mg/dL Calcium 6.1 L* (8.4-10.2) mg/dL Ionized Calcium Dhruv (4.5-5.3) mg/dL Phosphorus (2.5-4.5) mg/dL Total Bilirubin 1.6 H (0.2-1.3) mg/dL AST 1330 H (17-59) U/L ALT 2660 H (4-49) U/L Total Protein 4.0 L (6.3-8.2) g/dL Albumin 1.9 L (3.5-5.0) g/dL 01/31/22 02/01/22 02/01/22 Range/Units 23:43 04:35 04:35 WBC 15.3 H (3.8-10.6) k/uL RBC 3.82 L (4.30-5.90) m/uL Hgb 12.7 L (13.0-17.5) gm/dL Hct 38.2 L (39.0-53.0) % Plt Count 100 L (150-450) k/uL ABG pO2 (83-108) mmHg ABG O2 Saturation (94-97) % Chloride 111 H (98-107) mmol/L Carbon Dioxide 21 L (22-30) mmol/L BUN 111 H* (9-20) mg/dL Creatinine 6.15 H (0.66-1.25) mg/dL Glucose 111 H (74-99) mg/dL POC Glucose (mg/dL) 112 H (70-110) mg/dL Calcium 6.4 L* (8.4-10.2) mg/dL Ionized Calcium Dhruv (4.5-5.3) mg/dL Phosphorus 7.0 H (2.5-4.5) mg/dL Total Bilirubin (0.2-1.3) mg/dL AST (17-59) U/L ALT (4-49) U/L Total Protein (6.3-8.2) g/dL Albumin (3.5-5.0) g/dL 02/01/22 02/01/22 02/01/22 Range/Units 04:35 05:38 06:27 WBC (3.8-10.6) k/uL RBC (4.30-5.90) m/uL Hgb (13.0-17.5) gm/dL Hct (39.0-53.0) % Plt Count (150-450) k/uL ABG pO2 60 L (83-108) mmHg ABG O2 Saturation 89.7 L (94-97) % Chloride (98-107) mmol/L Carbon Dioxide (22-30) mmol/L BUN (9-20) mg/dL Creatinine (0.66-1.25) mg/dL Glucose (74-99) mg/dL POC Glucose (mg/dL) 115 H (70-110) mg/dL Calcium (8.4-10.2) mg/dL Ionized Calcium Dhruv 3.9 L (4.5-5.3) mg/dL Phosphorus (2.5-4.5) mg/dL Total Bilirubin (0.2-1.3) mg/dL AST (17-59) U/L ALT (4-49) U/L Total Protein (6.3-8.2) g/dL Albumin (3.5-5.0) g/dL Assessment and Plan Plan: Assessment: 1. Acute kidney injury secondary to ATN secondary to cardiac arrest. Baseline creatinine near 1 and is up to 6.1 today. Elevated BUN due to acute kidney injury and also steroids. Urine output improved post IV Lasix given 01/30/2022. Nonoliguric. No hydronephrosis noted on kidney ultrasound. 2. Status post V. fib arrest on 02/24/2022. 3. Coronary disease status post right PDA stenting on 02/24/2022. 4. Shock liver. 5. Fever. Questionable aspiration pneumonia. On antibiotics. 6. Anoxic brain injury. Improving. Neurology following. 7. Metabolic acidosis secondary to acute kidney injury, IV fluids and lactic acidosis. Improved. 8. Hypocalcemia secondary to acute kidney injury. 9. Hyperphosphatemia secondary to acute kidney injury. 10. Volume overload. Plan: Hep-Lock IV fluids. Lasix started today. Maintain tube feeds. Repeat 2 A of sodium bicarb IV push today. Calcium replaced. Replace potassium as well. Wean FiO2. Continue to assess daily for need for renal placement therapy. No urgency at this time. Add PhosLo. Ejection fraction 50%.
[2022-02-01 09:53] LABS: ALT 2042 U/L (4-49); AST 777 U/L (17-59)
[2022-02-01] MEDS: NOREPINEPHRINE 4 MG in SODIUM CHLORIDE 0.9% 250 ML IV SCH (10:30)
--- NOTE | 2022-02-01 10:55 | P.PN ---
Subjective Progress Note Date: 02/01/22 The patient is seen at bedside and per nurse is about the same. Patient is currently is on IV Propofol 25mcg/kg/min. He had CT head yesterday and it is reported as loss of dodson-white matter differentiation on the left occipital lobe which could represent acute/subacute CVA. This could be compared with MRI. I personally reviewed the CT of the head and I felt was a hard to the appreciate loss of dodson-white matter differentiation on this current CT of the head over the left occipital region Objective - Vital Signs Vital signs: Vital Signs Temp 98.5 F 02/01/22 08:00 Pulse 95 02/01/22 10:00 Resp 19 02/01/22 10:00 BP 117/63 01/31/22 01:00 Pulse Ox 91 L 02/01/22 10:00 FiO2 50 02/01/22 08:00 Intake & Output 01/31/22 02/01/22 02/01/22 18:59 06:59 18:59 Intake Total 2071.142 6017 369.674 Output Total 1500 1210 265 Balance -64.155 679 104.674 Weight 102.5 kg 101 kg Intake: IV 200 972 193 0.9 NaCl- 200 Sodium Chloride 0.9% 1, 900 175 000 ml @ 75 mls/hr IV . [id number] [facility] Rx#:[id number] pressure bag 72 18 Intake, IV Titration 931.845 375 86.674 Amount Calcium Gluconate in NaCl 100 2 gm In Saline 1 100ml. bag @ 100 mls/hr IVPB ONCE ONE Rx#:[id number] Norepinephrine 4 mg In 26.474 Sodium Chloride 0.9% 250 ml @ 0.05 MCG/KG/MIN 17. 583 mls/hr IV .[id number] [facility] Rx#:[id number] Piperacillin-Tazobactam 3 100 .375 gm In Sodium Chloride 0.9% 100 ml @ 25 mls/hr IVPB Q12HR [facility] Rx #:[id number] Sodium Chloride 0.9% 1, 750 75 000 ml @ 75 mls/hr IV . [id number] [facility] Rx#:[id number] propofoL 1,000 mg In 55.371 200 86.674 Empty Bag 1 bag @ 5 MCG/ KG/MIN 2.654 mls/hr IV . Q24H [facility] Rx#:[id number] Tube Feeding 214 452 90 Other 90 90 Output: Urine 500 710 265 Stool 1000 500 Other: Voiding Method Indwelling Catheter Indwelling Catheter Indwelling Catheter ABP, PAP, CO, CI - Last Documented Arterial Blood Pressure 176/49 - Exam GENERAL: The patient is lying in bed and does not appear in acute distress. LUNG: Intubated on ventilator. NEUROLOGICAL: Limited: IV Propofol 35mcg/kg/min is held currently for 2 hours Higher mental function: The patient is very drowsy but is awakeable to voice. Is following simple commands.. Cranial nerves: Opens his eyes to voice. No facial weakness. Is breathing over the vent. Motor: The strength is lifting slight his upper side to side and slightly attempting to lift above bed (lifting the left side more the right side). Sensation: Unable to assess and with painful stimuli not withdrawing. SOME OF THE WORK-UP DURING THIS HOSPITAL VISIT CONSISTED OF: Patient liver function is trending up Lipid panel is triglyceride of 136, cholesterol 121, LDL 63, HDL is 39. Ammonia level is 10. Creatning is 5.16 CT of the head is reported as no evidence of for acute subacute CVA. I personally reviewed the CT of the head and there is no acute intracranial process seen at this time. There is no bleeding. There is no mass effect and was able to appreciate that. He had CT head yesterday and it is reported as loss of dodson-white matter differentiation on the left occipital lobe which could represent acute/subacute CVA. This could be compared with MRI. I personally reviewed the CT of the head and I felt was a hard to the appreciate loss of dodson-white matter differentiation on this current CT of the head over the left occipital region Routine EEG is abnormal. The background slowing is suggestive of mild encephalopathy. Otherwise there is no focal slowing, epileptiform discharges or seizure on the EEG. - Labs CBC & Chem 7: 02/01/22 04:35 02/01/22 04:35 Labs: Abnormal Lab Results - Last 24 Hours (Table) 01/31/22 01/31/22 01/31/22 Range/Units 05:13 13:13 17:57 WBC (3.8-10.6) k/uL RBC (4.30-5.90) m/uL Hgb (13.0-17.5) gm/dL Hct (39.0-53.0) % Plt Count (150-450) k/uL ABG pO2 (83-108) mmHg ABG O2 Saturation (94-97) % Chloride 113 H (98-107) mmol/L Carbon Dioxide 19 L (22-30) mmol/L BUN 82 H (9-20) mg/dL Creatinine 5.16 H (0.66-1.25) mg/dL Glucose 120 H (74-99) mg/dL POC Glucose (mg/dL) 125 H 132 H (70-110) mg/dL Calcium 6.1 L* (8.4-10.2) mg/dL Ionized Calcium Dhruv (4.5-5.3) mg/dL Phosphorus (2.5-4.5) mg/dL Total Bilirubin 1.6 H (0.2-1.3) mg/dL AST 1330 H (17-59) U/L ALT 2660 H (4-49) U/L Total Protein 4.0 L (6.3-8.2) g/dL Albumin 1.9 L (3.5-5.0) g/dL 01/31/22 02/01/22 02/01/22 Range/Units 23:43 04:35 04:35 WBC 15.3 H (3.8-10.6) k/uL RBC 3.82 L (4.30-5.90) m/uL Hgb 12.7 L (13.0-17.5) gm/dL Hct 38.2 L (39.0-53.0) % Plt Count 100 L (150-450) k/uL ABG pO2 (83-108) mmHg ABG O2 Saturation (94-97) % Chloride 111 H (98-107) mmol/L Carbon Dioxide 21 L (22-30) mmol/L BUN 111 H* (9-20) mg/dL Creatinine 6.15 H (0.66-1.25) mg/dL Glucose 111 H (74-99) mg/dL POC Glucose (mg/dL) 112 H (70-110) mg/dL Calcium 6.4 L* (8.4-10.2) mg/dL Ionized Calcium Dhruv (4.5-5.3) mg/dL Phosphorus 7.0 H (2.5-4.5) mg/dL Total Bilirubin (0.2-1.3) mg/dL AST (17-59) U/L ALT (4-49) U/L Total Protein (6.3-8.2) g/dL Albumin (3.5-5.0) g/dL 02/01/22 02/01/22 02/01/22 Range/Units 04:35 04:35 05:38 WBC (3.8-10.6) k/uL RBC (4.30-5.90) m/uL Hgb (13.0-17.5) gm/dL Hct (39.0-53.0) % Plt Count (150-450) k/uL ABG pO2 60 L (83-108) mmHg ABG O2 Saturation 89.7 L (94-97) % Chloride (98-107) mmol/L Carbon Dioxide (22-30) mmol/L BUN (9-20) mg/dL Creatinine (0.66-1.25) mg/dL Glucose (74-99) mg/dL POC Glucose (mg/dL) (70-110) mg/dL Calcium (8.4-10.2) mg/dL Ionized Calcium Dhruv 3.9 L (4.5-5.3) mg/dL Phosphorus (2.5-4.5) mg/dL Total Bilirubin (0.2-1.3) mg/dL AST 777 H (17-59) U/L ALT 2042 H (4-49) U/L Total Protein (6.3-8.2) g/dL Albumin (3.5-5.0) g/dL 02/01/22 Range/Units 06:27 WBC (3.8-10.6) k/uL RBC (4.30-5.90) m/uL Hgb (13.0-17.5) gm/dL Hct (39.0-53.0) % Plt Count (150-450) k/uL ABG pO2 (83-108) mmHg ABG O2 Saturation (94-97) % Chloride (98-107) mmol/L Carbon Dioxide (22-30) mmol/L BUN (9-20) mg/dL Creatinine (0.66-1.25) mg/dL Glucose (74-99) mg/dL POC Glucose (mg/dL) 115 H (70-110) mg/dL Calcium (8.4-10.2) mg/dL Ionized Calcium Dhruv (4.5-5.3) mg/dL Phosphorus (2.5-4.5) mg/dL Total Bilirubin (0.2-1.3) mg/dL AST (17-59) U/L ALT (4-49) U/L Total Protein (6.3-8.2) g/dL Albumin (3.5-5.0) g/dL Assessment and Plan Assessment: Anoxic encephalopathy due to cardiac arrest--slightly improving Has also component of metabolic and uremic encephalopathy and medication use (IV propofol) Right sided weakness is concerning for stroke: Questionable acute ischemia over left occipital reported on CT but I felt it was difficult to ascertain from the CT. Acute cardiac arrest out of the hospital. Unknown exact downtown. Patient was in V. fib and required epinephrine, amiodarone and CPR with 4 defibrillation Acute inferior wall ST segment elevation ID status post cardiac cath of the PDA Hepatic shock due to cardiac arrest---trending up Acute kidney injury--trending up Proximal atrial fibrillation currently in sinus rhythm History of coronary artery disease status post stenting of the right ICA Previous TIA in 2009 Chronic gout Hepatitis A History of diverticular perforation/colostomy History of DVT Chronic back pain Plan: Questionable acute ischemia over left occipital reported on CT but I felt it was difficult to ascertain from the CT. I will get repeat CT head. He is on ASA 81mg daily and Lipitor 80mg daily started by cardiology team. Pending carotid duplex. Q2 hour neuro checks. We'll defer the rest of the medical management to the cardiology primary and ICU team Condition is very guarded at this time. He is making some improvement but unknown to extent of his neurological deficits at this time. Will continue to monitor. The plan was discussed with the patient's nurse. J Luis Vila M.D. Neuro-hospitalist Time with Patient: Less than 30
[2022-02-01 11:36] LABS: Glucose,Whole Blood 148 mg/dL (70-110)
--- NOTE | 2022-02-01 11:44 | US ---
EXAMINATION TYPE: US carotid duplex BILAT DATE OF EXAM: 02/01/2022 COMPARISON: NONE CLINICAL HISTORY: Abnormal CT. RULE OUT ACUTE CVA EXAM MEASUREMENTS: RIGHT: Peak Systolic Velocity (PSV) cm/sec ----- Right CCA: 68.2 ----- Right ICA: 88.6 ----- Right ECA: 133.4 ICA/CCA ratio: 1.3 RIGHT: End Diastole cm/sec ----- Right CCA: 20.2 ----- Right ICA: 23.1 ----- Right ECA: 15.5 LEFT: Peak Systolic Velocity (PSV) cm/sec ----- Left CCA: 108.1 ----- Left ICA: 100.0 ----- Left ECA: 182.6 ICA/CCA ratio: 0.9 LEFT: End Diastole cm/sec ----- Left CCA: 17.5 ----- Left ICA: 24.1 ----- Left ECA: 10.7 VERTEBRALS (direction of flow): Right Vertebral: Antegrade Left Vertebral: Antegrade Rhythm: Normal PLAQUE NOTED IN R/L BULB, NO SIGNIFICANT STENOSIS SEEN, LEFT ICA IS LIMITED AT DISTAL AREA DUE TO TRA CH. Grayscale, color Doppler, spectral Doppler imaging performed the carotid arteries. Waveform analysis does not show significant stenosis of the proximal internal carotid arteries. IMPRESSION: No hemodynamic significant stenosis of the proximal internal carotid arteries by Doppler criteria, an indirect measurement of carotid stenosis Criteria for Assigning % of Stenosis / Diameter reduction (Estimation based on the indirect measurements of the internal carotid artery velocities (ICA PSV). 1. Normal (no stenosis)=ICA PSV < 125 cm/s: ratio < 2.0: ICA EDV<40 cm/s. 2. Less than 50% stenosis=ICA PSV < 125 cm/s: ratio < 2.0: ICA EDV<40 cm/s. 3. 50 to 69% stenosis=ICA PSV of 125 to 230 cm/s: ration 2.0 ? 4.0: ICA EDV 40-100 cm/s. 4. Greater than 70% stenosis to near occlusion= ICA PSV > 230 cm/s: ratio > 4.0: ICA EDV > 100 cm/s. 5. Near occlusion= ICA PSV velocities may be low or undetectable: variable ratio and ICA EDV. 6. Total occlusion=unable to detect flow.
[2022-02-01 12:55] LABS: Glucose,Whole Blood 145 mg/dL (70-110)
[2022-02-01] MEDS: CALCIUM ACETATE 667 MG TAB PO SCH ×2 (12:56→17:48)
--- NOTE | 2022-02-01 13:02 | P.PN ---
Subjective Progress Note Date: 02/01/22 Principal diagnosis: Cardiac arrest and acute hypoxic respiratory failure secondary to cardiac, 61-year-old male patient was brought into the hospital after he sustained a cardiac arrest at home. The patient apparently was in V. fib arrest. His have coronary artery disease. The patient also is known to have paroxysmal atrial fibrillation. Family found the patient collapsed on the floor and EMS arrived within 3 minutes after the call. The patient was found to be unresponsive. His breathing was agonal. He had no pulse. He was in V. fib. He required 4 attempts of atrial fibrillation. He was given epinephrine 4 rounds a total of 4 mg and he was also given amiodarone. He was brought into the emergency and initial blood pressure was 186/129. The patient's EKG showed ST segment elevation inferior wall myocardial infarction along with underlying atrial fibrillation. The patient was taken for immediate cardiac catheterization and the patient was found to have significant disease in the right PDA, patent stent in the mid RCA, mild disease in the left circumflex and RCA, successful stenting of the right PDA was done without any issues. The patient's LAD and left main had some minimal disease without any high-grade stenosis. The PDA had 80-85% lesion and appropriate stenting was done. The patient was started on aspirin and Plavix. The patient was kept intubated on was brought into the intensive care unit. This morning, the patient is sedated and he is on propofol at the rate of 25 mcg/kg per minute and is adequately sedated without any issues. He is quite successful mechanical ventilator. He is currently on assist control mode at the rate of 24 with a tidal volume of 500 and FiO2 of 50% with a PEEP of 5. His cardiac rhythm is sinus at this point in time. His chest x-ray is showing adequate expansion for both lungs. ET tube is in a good location. No airspace disease or pulmonary infiltrates. There is some mild cardiomegaly noted on the chest x-ray. The patient's blood gases initially showed a pH of 7.17 with a pCO2 of 40 and pO2 of 96 and the follow-up blood gases to be done this morning. Hemodynamically, he is stable on no pressors. His blood work showed a troponin of 1.5 max atelectatic acid level initially was at 5.0 dropped down to 3.4. Serum bicarb was at 14. BUN is at 19 with a creatinine of 1.2 and the sodium is at 140. White cell count 22.1 with a hemoglobin of 17.6. Current temperature is 90.6F. The patient is currently on aspirin and Plavix. The patient is also on metoprolol at a dose of 25 mg by mouth twice a day. He is also on Zestril 2.5 mg by mouth daily for blood pressure control and he is also on high-dose statins. Noted the patient was taken Xarelto on outpatient basis which I'm assuming given to him for paroxysmal atrial fibrillation. CAT scan of the brain has not been done yet. No seizure activity has been noted. On 01/29/2022, seeing the patient for a follow-up. The patient is post V. fib arrest. The patient remains sedated on propofol and the patient remains unresponsive. No seizure activity has been noted. The patient is currently off her before running at 45 mcg/kg per minute. Were unable to do sedation holiday as the patient remains quite unstable at this point in time. On today's evaluation, the patient remains on propofol. The patient remains on a mechanical ventilator on assist control mode at the rate of 24 with a tidal volume of 500 a FiO2 of 60% with a PEEP of 5. The patient's blood gas showed a pH of 7.09 with a pCO2 of 35 and a pO2 of 96. Chest x-ray shows no evidence of any pneumonia and ET tube is in a good location. The patient spiked a temp erature 100.5. This could be a central fever. Aspiration cannot be ruled out and the patient will be started on IV Zosyn. Furthermore, the patient was having issues with an elevated lactic acid level yesterday. Lactic acid level was as high as 6. The patient was given a total of 2 L of IV fluids. Based on the underlying non-anion gap Metabolic acidosis, the patient was started on a bicarb infusion after being given a total of 5 mEq IV push. Note that the morning blood work shows a sodium of 142 with a potassium of 5.8, serum bicarb is at 11 with a chloride of 122. The BUN is at 33 with a creatinine of 2.1. The patient has a urine output of around 20 mL an hour of urine output has dr opped and the patient has sustained an acute kidney injury. Norepinephrine infusion is off. The patient has developed also a shock liver with an AST of 2033 and an ALT of 2976. Condition remains extremely critical at this point in time. Reevaluated today on 01/30/2022, patient remains in the ICU, intubated and mechanically ventilated. He is on assist control rate of 24th of volume 500 FiO2 50% and PEEP of 5. ABG earlier on 60% FiO2 showed a pO2 of 130 pCO2 37 pH of 7.40 and sodium bicarb was discontinued. Patient is on propofol at 20 mcg/kg/m he is also on norepinephrine at 0.02 mcg/kg/m IV fluid at 100 mL per hour, CVP is around 7. Chest x-ray is showing evidence of interstitial edema /infiltrates, however his CVP is 7 and I'm recommending that we continue IV fluids. Patient remains sedated, apparently he had metabolic encephalopathy secondary to his cardiac arrest, patient is status post stent placement to the PDA. EEG showed encephalopathy but no evidence of seizures. WBC count is 8 hemoglobin is 13.8 electrolytes are normal renal profile showed a BUN of 59 and creatinine 3.77, worsening since admission. RTC the patient developed acute kidney injury. Reevaluated today on 01/31/22, patient remains in the ICU, intubated and mechanically ventilated. Patient is drowsy but following simple instructions. He is generally weak. He is on assist control rate of 24th volume 500 FiO2 50% and PEEP of 5 ABG showed a pO2 of 78 pCO2 36 pH of 7.37 he is presently off propofol to be evaluated by neurology while off propofol. Patient opens eyes to voice, however he is extremely weak able to wiggle toes at times. But could not squeeze my hands. Patient is now off norepinephrine and off all drips. WBC count is 9.1 hemoglobin 13.1 platelets are 110. Electrolytes are normal however his bicarb is 19 normal anion gap. BUN is 82 creatinine 5.16, steadily rising, and the patient is being followed by nephrology, be considered for possible hemodialysis, however considering the patient has decent urine output in the range of 25-50 mL/h, no immediate plans to dialyze the patient at this point Patient was reevaluated today on 02/01/22, patient remains on the ICU, intubated m echanically ventilated, he is on assist control rate of 24th of volume 500 FiO2 50% and PEEP of 5. ABG showed a pO2 of 60 pCO2 35 pH of 7.40, hence I increased the PEEP up to 8 incentive PEEP of 5. Patient remains on propofol at 15 mcg/kg/m, being titrated down in order to assess his mental status today, he is off norepinephrine remains on IV fluid at KVO. Patient opens his eyes, but does not follow any other instructions. He does not seem to be in any distress, does not squeeze hands, does not wiggle toes, does not close eyes when asked to. Chest x-ray showed mostly pulmonary venous hypertension and interstitial edema with bibasilar effusions and atelectasis, strongly doubt pneumonia. Carotid Doppler report today is basically unremarkable. No significant stenosis noted in the proximal internal carotid arteries. Patient continues to have anoxic encephalopathy due to cardiac arrest, not much improvement noted since yesterday. Patient is basically about the same. Again he opens his eyes but does not follow any instructions whatsoever. WBC count is elevated at 15.3 hemoglobin 12.7 in x-ray summary normal renal profile however is worse with a BUN of 111 creatinine 6.15 and that being addressed by nephrology not planning any hemodialysis as the patient is maintaining good urine output all along more Lasix was given today by nephrology Objective - Vital Signs Vital signs: Vital Signs Temp 98.8 F 02/01/22 12:00 Pulse 80 02/01/22 12:00 Resp 24 02/01/22 12:00 BP 117/63 01/31/22 01:00 Pulse Ox 92 L 02/01/22 12:00 FiO2 55 02/01/22 12:00 Intake & Output 01/31/22 02/01/22 02/01/22 18:59 06:59 18:59 Intake Total 8901.851 7990 590.000 Output Total 1500 1210 525 Balance -64.155 679 65.000 Weight 102.5 kg 101 kg Intake: IV 200 972 265 0.9 NaCl- 200 Sodium Chloride 0.9% 1, 900 235 000 ml @ 75 mls/hr IV . [id number] [facility] Rx#:[id number] pressure bag 72 30 Intake, IV Titration 931.845 375 100.000 Amount Calcium Gluconate in NaCl 100 2 gm In Saline 1 100ml. bag @ 100 mls/hr IVPB ONCE ONE Rx#:[id number] Norepinephrine 4 mg In 26.474 Sodium Chloride 0.9% 250 ml @ 0.05 MCG/KG/MIN 17. 583 mls/hr IV .[id number] [facility] Rx#:[id number] Piperacillin-Tazobactam 3 100 .375 gm In Sodium Chloride 0.9% 100 ml @ 25 mls/hr IVPB Q12HR [facility] Rx #:[id number] Sodium Chloride 0.9% 1, 750 75 000 ml @ 75 mls/hr IV . [id number] [facility] Rx#:[id number] propofoL 1,000 mg In 55.371 200 100.000 Empty Bag 1 bag @ 5 MCG/ KG/MIN 2.654 mls/hr IV . Q24H [facility] Rx#:[id number] Tube Feeding 214 452 225 Other 90 90 Output: Urine 500 710 525 Stool 1000 500 Other: Voiding Method Indwelling Catheter Indwelling Catheter Indwelling Catheter ABP, PAP, CO, CI - Last Documented Arterial Blood Pressure 167/53 - Exam Physical Exam: Revealed a 61-year-old white male, intubated, mechanically ventilated, opens eyes only to verbal stimuli, does not follow any other instructions Head: Atraumatic, normocephalic. Endotracheal tube and orogastric tube are intact HEENT:[Neck is supple.] [No neck masses.] [No thyromegaly.] [No JVD.] Chest: [Symmetrical chest expansion, crackles at the bases, no rhonchi and no wheezes..] Cardiac Exam: [Normal S1 and S2, no S3 gallop, no murmur.] Abdomen: [Soft, nontender, no megaly, no rebound, no guarding, normal bowel sounds.] Extremities: [No clubbing, no edema, no cyanosis.] Neurological Exam: Patient, opens eyes to verbal stimuli, otherwise no other responses Psychiatric could not be assessed - Labs CBC & Chem 7: 02/01/22 04:35 02/01/22 04:35 Labs: Abnormal Lab Results - Last 24 Hours (Table) 01/31/22 01/31/22 01/31/22 Range/Units 05:13 13:13 17:57 WBC (3.8-10.6) k/uL RBC (4.30-5.90) m/uL Hgb (13.0-17.5) gm/dL Hct (39.0-53.0) % Plt Count (150-450) k/uL ABG pO2 (83-108) mmHg ABG O2 Saturation (94-97) % Chloride (98-107) mmol/L Carbon Dioxide (22-30) mmol/L BUN (9-20) mg/dL Creatinine (0.66-1.25) mg/dL Glucose (74-99) mg/dL POC Glucose (mg/dL) 125 H 132 H (70-110) mg/dL Calcium (8.4-10.2) mg/dL Ionized Calcium Dhruv (4.5-5.3) mg/dL Phosphorus (2.5-4.5) mg/dL Total Bilirubin 1.6 H (0.2-1.3) mg/dL AST 1330 H (17-59) U/L ALT 2660 H (4-49) U/L Total Protein 4.0 L (6.3-8.2) g/dL Albumin 1.9 L (3.5-5.0) g/dL 01/31/22 02/01/22 02/01/22 Range/Units 23:43 04:35 04:35 WBC 15.3 H (3.8-10.6) k/uL RBC 3.82 L (4.30-5.90) m/uL Hgb 12.7 L (13.0-17.5) gm/dL Hct 38.2 L (39.0-53.0) % Plt Count 100 L (150-450) k/uL ABG pO2 (83-108) mmHg ABG O2 Saturation (94-97) % Chloride 111 H (98-107) mmol/L Carbon Dioxide 21 L (22-30) mmol/L BUN 111 H* (9-20) mg/dL Creatinine 6.15 H (0.66-1.25) mg/dL Glucose 111 H (74-99) mg/dL POC Glucose (mg/dL) 112 H (70-110) mg/dL Calcium 6.4 L* (8.4-10.2) mg/dL Ionized Calcium Dhruv (4.5-5.3) mg/dL Phosphorus 7.0 H (2.5-4.5) mg/dL Total Bilirubin (0.2-1.3) mg/dL AST (17-59) U/L ALT (4-49) U/L Total Protein (6.3-8.2) g/dL Albumin (3.5-5.0) g/dL 02/01/22 02/01/22 02/01/22 Range/Units 04:35 04:35 05:38 WBC (3.8-10.6) k/uL RBC (4.30-5.90) m/uL Hgb (13.0-17.5) gm/dL Hct (39.0-53.0) % Plt Count (150-450) k/uL ABG pO2 60 L (83-108) mmHg ABG O2 Saturation 89.7 L (94-97) % Chloride (98-107) mmol/L Carbon Dioxide (22-30) mmol/L BUN (9-20) mg/dL Creatinine (0.66-1.25) mg/dL Glucose (74-99) mg/dL POC Glucose (mg/dL) (70-110) mg/dL Calcium (8.4-10.2) mg/dL Ionized Calcium Dhruv 3.9 L (4.5-5.3) mg/dL Phosphorus (2.5-4.5) mg/dL Total Bilirubin (0.2-1.3) mg/dL AST 777 H (17-59) U/L ALT 2042 H (4-49) U/L Total Protein (6.3-8.2) g/dL Albumin (3.5-5.0) g/dL 02/01/22 02/01/22 02/01/22 Range/Units 06:27 11:33 12:53 WBC (3.8-10.6) k/uL RBC (4.30-5.90) m/uL Hgb (13.0-17.5) gm/dL Hct (39.0-53.0) % Plt Count (150-450) k/uL ABG pO2 (83-108) mmHg ABG O2 Saturation (94-97) % Chloride (98-107) mmol/L Carbon Dioxide (22-30) mmol/L BUN (9-20) mg/dL Creatinine (0.66-1.25) mg/dL Glucose (74-99) mg/dL POC Glucose (mg/dL) 115 H 148 H 145 H (70-110) mg/dL Calcium (8.4-10.2) mg/dL Ionized Calcium Dhruv (4.5-5.3) mg/dL Phosphorus (2.5-4.5) mg/dL Total Bilirubin (0.2-1.3) mg/dL AST (17-59) U/L ALT (4-49) U/L Total Protein (6.3-8.2) g/dL Albumin (3.5-5.0) g/dL Assessment and Plan Assessment: Impression: Acute hypoxic respiratory failure secondary to cardiac arrest Cardiac arrest with ventricular fibrillation status post cardioversion, patient is in sinus rhythm. Acute inferior wall myocardial infarction status post stenting of the PDA, patent stent in mid RCA. Paroxysmal atrial fibrillation Tobacco dependence syndrome Previous history of DVT Possible aspiration pneumonia Acute kidney injury, acute tubular necrosis Shock liver secondary to cardiac arrest Possible anoxic brain injury/encephalopathy History of underlying COPD Chronic low back pain History of colostomy and reversal Recommendation: Continue ventilatory support Continue hemodynamic support, presently the patient is off norepinephrine Continue GI and DVT prophylaxis Nutritional support/enteral feeding Continue to monitor renal and liver profile. May eventually require hemodi alysis but not at this point yet Continue Zosyn/empiric coverage for aspiration pneumonia We will continue to follow. Patient is critically ill. Critical care time is over 30 minutes Time with Patient: Greater than 30
[2022-02-01 17:44] LABS: Glucose,Whole Blood 198 mg/dL (70-110)
--- NOTE | 2022-02-01 18:40 | CT ---
EXAMINATION TYPE: CT brain wo con DATE OF EXAM: 02/01/2022 COMPARISON: 01/31/2022 HISTORY: ? Reported LT occipital stroke on prior CT CT DLP: 1209.[address] of the brain was performed. The ventricles, basal cisterns and sulci overlying the cerebral convexities demonstrate mild enlargem ent. Vague area of decreased attenuation left occipital lobe is redemonstrated. No evidence for hemor rhagic transformation. There is no evidence for intracranial hemorrhage. No midline shift. There is decreased attenuation about the periventricular white matter and deep white matter of both c erebral hemispheres, compatible with chronic small vessel ischemia. Differential diagnosis does inclu de demyelination. No mass effects are seen.No midline shift. Osseous calvarium is intact. If symptoms persist consider MRI. IMPRESSION: 1. Age related atrophic and chronic small vessel ischemic change without acute intracranial process s een at this time.Vague area of decreased attenuation left occipital lobe is redemonstrated. No eviden ce for hemorrhagic transformation.
[2022-02-01] MEDS: ATORVASTATIN 80 MG TAB PO SCH (21:06)
[2022-02-01 23:42] LABS: Glucose,Whole Blood 154 mg/dL (70-110)
[2022-02-02 00:16] LABS: Glucose,Whole Blood 146 mg/dL (70-110)
[2022-02-02] MEDS: INSULIN ASPART (NovoLOG) 100 UNIT/ML VIAL SQ SCH ×4 (00:17→17:58)
[2022-02-02] MEDS: methylPREDNISolone SOD SUCCI 40 MG/ML 1 ML VIAL IV SCH ×3 (00:17→16:35)
[2022-02-02] MEDS: IPRATROPIUM-ALBUTEROL 3 ML NEB INHALATION SCH ×7 (00:27→23:46)
[2022-02-02] MEDS: NOREPINEPHRINE 4 MG in SODIUM CHLORIDE 0.9% 250 ML IV SCH ×2 (04:03→16:36)
[2022-02-02] MEDS: CLEVIDIPINE BUTYRATE 25 MG in EMPTY BAG 1 BAG IV SCH ×6 (04:04→22:40)
[2022-02-02 04:33] LABS: HCT 35.8 % (39.0-53.0); HGB 11.8 gm/dL (13.0-17.5); MCH 32.4 pg (25.0-35.0); MCV 98.1 fL (80.0-100.0); Mean Platelet Volume 11.6; Platelet Count 118 k/uL (150-450); RBC 3.64 m/uL (4.30-5.90); RDW 14.3 % (11.5-15.5); WBC 21.9 k/uL (3.8-10.6)
[2022-02-02 04:37] LABS: Ionized Calcium 3.8 mg/dL (4.5-5.3)
[2022-02-02 04:44] LABS: Potassium 4.2 mmol/L (3.5-5.1)
[2022-02-02 04:45] LABS: Albumin 2.1 g/dL (3.5-5.0); Calcium 6.5 mg/dL (8.4-10.2); Total Bilirubin 1.4 mg/dL (0.2-1.3); Total Protein 4.4 g/dL (6.3-8.2)
[2022-02-02 05:57] LABS: Glucose,Whole Blood 170 mg/dL (70-110)
[2022-02-02 06:02] LABS: ABG Base Excess -2.2 mmol/L; ABG HCO3 23 mmol/L (21-25); ABG Oxygen Saturation 93.7 % (94-97); ABG PCO2 36 mmHg (35-45); ABG PH 7.41 (7.35-7.45); ABG PO2 70 mmHg (83-108); ABG TCO2 24 mmol/L (19-24); Allen Test Performed? Yes
[2022-02-02] MEDS: CALCIUM ACETATE 667 MG TAB PO SCH ×3 (07:03→17:05)
[2022-02-02] MEDS ORDERED: CALCIUM GLUCONATE IN NACL 2 GM in SALINE 1 100ML.BAG IVPB ONE (08:00)
--- NOTE | 2022-02-02 08:06 | P.PN ---
Subjective PROGRESS NOTE The patient is a 61-year-old male with a known history of CAD, chronic tobacco use, paroxysmal atrial fibrillation who presented with cardiac arrest and ventricular fibrillation per EMS requiring cardioversion 4. On his initial EKG he was in atrial fibrillation with ST segment elevation inferiorly and underwent stenting of his right PDA. He continues to be intubated, in sinus mechanism with improvement in his ST elevation. He is on no vasopressor. His urinary output is stable. He has no evidence of recurrent ventricular t achycardia. In the past his left ventricle systolic function was normal. January 29: The patient remains intubated in sinus tachycardia. There is no evidence of ventricular ectopic activity. He was febrile earlier. He remains sedated. He had some movement of his arms yesterday. He has an elevation of his liver function test as well as worsening of his renal functions. His urine output is low but stable. His blood pressure has been stable. He has no further ventricle tachycardia. He is acidotic and being started on sodium bicarb drip. He underwent placement of an art line and triple lumen yesterday. 01/30 Patient seen and examined. Patient remains intubated and sedated. Per nursing patient had sedation holiday without purposeful movements. His liver enzymes have increase most consistent with shock liver as well as creatinine increasing. He has been receiving IV fluids with normal saline at 100 mL per hour in addition to bicarb drip at 150 mL per hour. Has been off and on low-dose norepinephrine. Echocardiogram pending this morning. 01/31 Patient seen and examined. Echocardiogram performed yesterday shows EF 50-55%. Remains intubated and sedated. Patient is on sedation holiday and currently more lethargic however per nurse he was following some commands with neurology. Has been off of norepinephrine over the last 2 hours. He did receive Lasix 80 mg IV push 1 with improvement in urine output approximately 25 mL per hour currently. Creatinine again increased up to 5 and nephrology has been following. 02/01 Patient seen and examined. Patient remains sedated on propofol. Has been receiving IV fluids however increased upper and lower extremity edema and incre ased vascular congestion on chest x-ray. Blood pressures have been somewhat more elevated. Liver enzymes from yesterday somewhat improved, liver enzymes from today not resulted. 02/02 Patient seen and examined. Patient remains sedated and intubated however per nursing was able to wean sedation a follow-up most all of commands yesterday and currently has been undergoing weaning of sedation and this morning. Blood pressures were better controlled however with weaning of sedation systolics up to 170s. Hydralazine was added yesterday. We will use cleviprex to better titrate blood pressure. Has become mildly hypernatremic. Creatinine going up however still making good urine. Liver enzymes have continued to improve yesterday. Remains on 55% FiO2 with PEEP of 8. CT brain yesterday morning that showed concern of left occipital stroke however by review from neurology not clear and repeat did not clearly show acute/subacute stroke. CVP unclear if accurate however appears around 8. Receiving tube feeds at 45 mL per hour. Medications: Vitals reviewed LUNGS: Clear to auscultation anteriorly, no wheezes HEART: Regular rate and rhythm, S1, S2. No S3. No systolic murmur ABDOMEN: Soft, nontender, no organomegaly EXTREMETIES: 1+ LE edema. Intubated and sedated IMPRESSION: 1. Acute cardiac arrest with ventricular fibrillation status post cardioversion. Continues to be in sinus mechanism 2. Evidence of acute inferior myocardial infarction on admission with stenting of the PDA patent stent in the mid RCA 3. Prior history of paroxysmal atrial fibrillation 4. History of hyperlipidemia 5. Rule out anoxic encephalopathy 6. Chronic tobacco use 7. Worsening liver functions, likely shock liver, currently improving 8. Prior history of DVT 9. Fever possible aspiration pneumonia 10. Acute renal injury 11. Acute on chronic diastolic heart failure, component of acute kidney injury as well PLAN: Patient's sodium has been going up and unclear if CVP is accurate. X-ray fin dings may be explained by aspiration. Nephrology recommendations appreciated. Liver enzymes appear to be improving however creatinine worsening. Continue supportive care. Add Cleviprex to be able to titrate more easily with weaning of sedation and increases in blood pressure. Unclear neurologic issues/questionable stroke however repeat CT is not clearly show stroke. Prognosis guarded. Objective - Vital Signs Vital signs: Vital Signs Temp 98.4 F 02/02/22 04:00 Pulse 98 02/02/22 07:00 Resp 24 02/02/22 07:00 BP 153/77 02/02/22 07:00 Pulse Ox 96 02/02/22 07:00 FiO2 55 02/02/22 04:28 Intake & Output 02/01/22 02/02/22 02/02/22 18:59 06:59 18:59 Intake Total 9244.444 8455.510 124.465 Output Total 1045 1095 150 Balance 82.490 -54.490 -25.535 Weight 97.9 kg Intake: IV 361 192 16 Sodium Chloride 0.9% 1, 295 120 10 000 ml @ 75 mls/hr IV . [id number] [facility] Rx#:[id number] pressure bag 66 72 6 Intake, IV Titration 181.490 218.510 63.465 Amount Piperacillin-Tazobactam 3 100 .375 gm In Sodium Chloride 0.9% 100 ml @ 25 mls/hr IVPB Q12HR [facility] Rx #:[id number] propofoL 1,000 mg In 181.490 118.510 63.465 Empty Bag 1 bag @ 5 MCG/ KG/MIN 2.654 mls/hr IV . Q24H [facility] Rx#:[id number] Tube Feeding 495 540 45 Other 90 90 Output: Urine 1045 1095 75 Stool 75 Other: Voiding Method Indwelling Catheter Indwelling Catheter ABP, PAP, CO, CI - Last Documented Arterial Blood Pressure 176/67 - Labs CBC & Chem 7: 02/02/22 04:20 02/02/22 04:20 Labs: Abnormal Lab Results - Last 24 Hours (Table) 02/01/22 02/01/22 02/01/22 Range/Units 04:35 11:33 12:53 WBC (3.8-10.6) k/uL RBC (4.30-5.90) m/uL Hgb (13.0-17.5) gm/dL Hct (39.0-53.0) % Plt Count (150-450) k/uL ABG pO2 (83-108) mmHg ABG O2 Saturation (94-97) % Sodium (137-145) mmol/L Chloride (98-107) mmol/L BUN (9-20) mg/dL Creatinine (0.66-1.25) mg/dL Glucose (74-99) mg/dL POC Glucose (mg/dL) 148 H 145 H (70-110) mg/dL Calcium (8.4-10.2) mg/dL Ionized Calcium Dhruv (4.5-5.3) mg/dL Total Bilirubin (0.2-1.3) mg/dL AST 777 H (17-59) U/L ALT 2042 H (4-49) U/L Alkaline Phosphatase (38-126) U/L Total Protein (6.3-8.2) g/dL Albumin (3.5-5.0) g/dL 02/01/22 02/01/22 02/02/22 Range/Units 17:42 23:40 00:14 WBC (3.8-10.6) k/uL RBC (4.30-5.90) m/uL Hgb (13.0-17.5) gm/dL Hct (39.0-53.0) % Plt Count (150-450) k/uL ABG pO2 (83-108) mmHg ABG O2 Saturation (94-97) % Sodium (137-145) mmol/L Chloride (98-107) mmol/L BUN (9-20) mg/dL Creatinine (0.66-1.25) mg/dL Glucose (74-99) mg/dL POC Glucose (mg/dL) 198 H 154 H 146 H (70-110) mg/dL Calcium (8.4-10.2) mg/dL Ionized Calcium Dhruv (4.5-5.3) mg/dL Total Bilirubin (0.2-1.3) mg/dL AST (17-59) U/L ALT (4-49) U/L Alkaline Phosphatase (38-126) U/L Total Protein (6.3-8.2) g/dL Albumin (3.5-5.0) g/dL 02/02/22 02/02/22 02/02/22 Range/Units 04:20 04:20 05:56 WBC 21.9 H (3.8-10.6) k/uL RBC 3.64 L (4.30-5.90) m/uL Hgb 11.8 L (13.0-17.5) gm/dL Hct 35.8 L (39.0-53.0) % Plt Count 118 L (150-450) k/uL ABG pO2 (83-108) mmHg ABG O2 Saturation (94-97) % Sodium 147 H (137-145) mmol/L Chloride 111 H (98-107) mmol/L BUN 145 H* (9-20) mg/dL Creatinine 6.69 H (0.66-1.25) mg/dL Glucose 148 H (74-99) mg/dL POC Glucose (mg/dL) 170 H (70-110) mg/dL Calcium 6.5 L (8.4-10.2) mg/dL Ionized Calcium Dhruv 3.8 L (4.5-5.3) mg/dL Total Bilirubin 1.4 H (0.2-1.3) mg/dL AST 470 H (17-59) U/L ALT 1636 H (4-49) U/L Alkaline Phosphatase 190 H (38-126) U/L Total Protein 4.4 L (6.3-8.2) g/dL Albumin 2.1 L (3.5-5.0) g/dL 02/02/22 Range/Units 05:59 WBC (3.8-10.6) k/uL RBC (4.30-5.90) m/uL Hgb (13.0-17.5) gm/dL Hct (39.0-53.0) % Plt Count (150-450) k/uL ABG pO2 70 L (83-108) mmHg ABG O2 Saturation 93.7 L (94-97) % Sodium (137-145) mmol/L Chloride (98-107) mmol/L BUN (9-20) mg/dL Creatinine (0.66-1.25) mg/dL Glucose (74-99) mg/dL POC Glucose (mg/dL) (70-110) mg/dL Calcium (8.4-10.2) mg/dL Ionized Calcium Dhrvu (4.5-5.3) mg/dL Total Bilirubin (0.2-1.3) mg/dL AST (17-59) U/L ALT (4-49) U/L Alkaline Phosphatase (38-126) U/L Total Protein (6.3-8.2) g/dL Albumin (3.5-5.0) g/dL
--- NOTE | 2022-02-02 08:20 | XR ---
EXAMINATION TYPE: XR chest 1V portable DATE OF EXAM: 02/02/2022 COMPARISON: Chest x-ray 02/01/2022 HISTORY: Intubated TECHNIQUE: Single frontal view of the chest is obtained. FINDINGS: Endotracheal tube, NG tube, left subclavian central venous catheter are overlying appropri ate positions. Side port of the NG tube is near the gastroesophageal junction level. Bibasilar increa sed attenuation again noted within the lungs. No evident pneumothorax. Cardiac mediastinal silhouette is stable. IMPRESSION: NG tube as described. Bibasilar atelectasis versus pneumonia and associated effusions
[2022-02-02] MEDS: CLOPIDOGREL 75 MG TAB PO SCH (08:39)
[2022-02-02] MEDS: CHLORHEXIDINE GLUCONATE 15 ML CUP MUCOUS MEM SCH ×2 (08:39→21:03)
[2022-02-02] MEDS: PIPERACILLIN-TAZOBACTAM 3.375 GM in SODIUM CHLORIDE 0.9% 100 ML IVPB SCH ×2 (08:39→21:02)
[2022-02-02] MEDS: ASPIRIN 81 MG PO SCH (08:39)
[2022-02-02] MEDS: METOPROLOL TARTRATE 25 MG TAB PO SCH ×2 (08:39→21:02)
[2022-02-02] MEDS: hydrALAZINE HCL 25 MG TAB PO SCH ×4 (08:39→21:02)
[2022-02-02] MEDS: FAMOTIDINE 20 MG/2 ML VIAL IV SCH (08:39)
[2022-02-02] MEDS: FUROSEMIDE 10 MG/ML 10 ML VIAL IV SCH (08:40)
--- NOTE | 2022-02-02 09:40 | P.PN ---
Subjective Patient is seen in follow for acute kidney injury. Creatinine 6.69 today. On IV Lasix. Nonoliguric. Remains intubated. On 55% FiO2. Off vasopressors. Receiving IV fluids and tube feeds. Vital signs are stable. HEENT: Intubated. LUNGS: Breath sounds decreased. HEART: Rate and Rhythm are regular. ABDOMEN: Soft, no distention. EXTREMITITES: Trace edema. Objective - Vital Signs Vital signs: Vital Signs Temp 98.8 F 02/02/22 08:00 Pulse 103 H 02/02/22 08:28 Resp 16 02/02/22 08:00 BP 163/82 02/02/22 08:00 Pulse Ox 95 02/02/22 08:00 FiO2 55 02/02/22 08:05 Intake & Output 02/01/22 02/02/22 02/02/22 18:59 06:59 18:59 Intake Total 0068.722 2755.510 235.220 Output Total 1045 1095 390 Balance 82.490 -54.490 -154.780 Weight 97.9 kg Intake: IV 361 192 38 Sodium Chloride 0.9% 1, 295 120 20 000 ml @ 75 mls/hr IV . [id number] [facility] Rx#:[id number] pressure bag 66 72 18 Intake, IV Titration 181.490 218.510 77.220 Amount Piperacillin-Tazobactam 3 100 .375 gm In Sodium Chloride 0.9% 100 ml @ 25 mls/hr IVPB Q12HR [facility] Rx #:[id number] propofoL 1,000 mg In 181.490 118.510 77.220 Empty Bag 1 bag @ 5 MCG/ KG/MIN 2.654 mls/hr IV . Q24H [facility] Rx#:[id number] Tube Feeding 495 540 90 Other 90 90 30 Output: Urine 1045 1095 315 Stool 75 Other: Voiding Method Indwelling Catheter Indwelling Catheter ABP, PAP, CO, CI - Last Documented Arterial Blood Pressure 182/67 - Labs CBC & Chem 7: 02/02/22 04:20 02/02/22 04:20 Labs: Abnormal Lab Results - Last 24 Hours (Table) 02/01/22 02/01/22 02/01/22 Range/Units 04:35 11:33 12:53 WBC (3.8-10.6) k/uL RBC (4.30-5.90) m/uL Hgb (13.0-17.5) gm/dL Hct (39.0-53.0) % Plt Count (150-450) k/uL ABG pO2 (83-108) mmHg ABG O2 Saturation (94-97) % Sodium (137-145) mmol/L Chloride (98-107) mmol/L BUN (9-20) mg/dL Creatinine (0.66-1.25) mg/dL Glucose (74-99) mg/dL POC Glucose (mg/dL) 148 H 145 H (70-110) mg/dL Calcium (8.4-10.2) mg/dL Ionized Calcium Dhruv (4.5-5.3) mg/dL Total Bilirubin (0.2-1.3) mg/dL AST 777 H (17-59) U/L ALT 2042 H (4-49) U/L Alkaline Phosphatase (38-126) U/L Total Protein (6.3-8.2) g/dL Albumin (3.5-5.0) g/dL 02/01/22 02/01/22 02/02/22 Range/Units 17:42 23:40 00:14 WBC (3.8-10.6) k/uL RBC (4.30-5.90) m/uL Hgb (13.0-17.5) gm/dL Hct (39.0-53.0) % Plt Count (150-450) k/uL ABG pO2 (83-108) mmHg ABG O2 Saturation (94-97) % Sodium (137-145) mmol/L Chloride (98-107) mmol/L BUN (9-20) mg/dL Creatinine (0.66-1.25) mg/dL Glucose (74-99) mg/dL POC Glucose (mg/dL) 198 H 154 H 146 H (70-110) mg/dL Calcium (8.4-10.2) mg/dL Ionized Calcium Dhruv (4.5-5.3) mg/dL Total Bilirubin (0.2-1.3) mg/dL AST (17-59) U/L ALT (4-49) U/L Alkaline Phosphatase (38-126) U/L Total Protein (6.3-8.2) g/dL Albumin (3.5-5.0) g/dL 02/02/22 02/02/22 02/02/22 Range/Units 04:20 04:20 05:56 WBC 21.9 H (3.8-10.6) k/uL RBC 3.64 L (4.30-5.90) m/uL Hgb 11.8 L (13.0-17.5) gm/dL Hct 35.8 L (39.0-53.0) % Plt Count 118 L (150-450) k/uL ABG pO2 (83-108) mmHg ABG O2 Saturation (94-97) % Sodium 147 H (137-145) mmol/L Chloride 111 H (98-107) mmol/L BUN 145 H* (9-20) mg/dL Creatinine 6.69 H (0.66-1.25) mg/dL Glucose 148 H (74-99) mg/dL POC Glucose (mg/dL) 170 H (70-110) mg/dL Calcium 6.5 L (8.4-10.2) mg/dL Ionized Calcium Dhruv 3.8 L (4.5-5.3) mg/dL Total Bilirubin 1.4 H (0.2-1.3) mg/dL AST 470 H (17-59) U/L ALT 1636 H (4-49) U/L Alkaline Phosphatase 190 H (38-126) U/L Total Protein 4.4 L (6.3-8.2) g/dL Albumin 2.1 L (3.5-5.0) g/dL 02/02/22 Range/Units 05:59 WBC (3.8-10.6) k/uL RBC (4.30-5.90) m/uL Hgb (13.0-17.5) gm/dL Hct (39.0-53.0) % Plt Count (150-450) k/uL ABG pO2 70 L (83-108) mmHg ABG O2 Saturation 93.7 L (94-97) % Sodium (137-145) mmol/L Chloride (98-107) mmol/L BUN (9-20) mg/dL Creatinine (0.66-1.25) mg/dL Glucose (74-99) mg/dL POC Glucose (mg/dL) (70-110) mg/dL Calcium (8.4-10.2) mg/dL Ionized Calcium Dhruv (4.5-5.3) mg/dL Total Bilirubin (0.2-1.3) mg/dL AST (17-59) U/L ALT (4-49) U/L Alkaline Phosphatase (38-126) U/L Total Protein (6.3-8.2) g/dL Albumin (3.5-5.0) g/dL Assessment and Plan Plan: Assessment: 1. Acute kidney injury secondary to ATN secondary to cardiac arrest. Baseline creatinine near 1 and is up to 6.69 today. Elevated BUN due to acute kidney injury and steroids. Nonoliguric. No hydronephrosis noted on kidney ultrasound. 2. Status post V. fib arrest on 02/24/2022. 3. Coronary disease status post right PDA stenting on 02/24/2022. 4. Shock liver. 5. Fever. Questionable aspiration pneumonia. On antibiotics. 6. Anoxic brain injury. Improving. Neurology following. 7. Metabolic acidosis secondary to acute kidney injury, IV fluids and lactic acidosis. Improved. 8. Hypocalcemia secondary to acute kidney injury. 9. Hyperphosphatemia secondary to acute kidney injury. On PhosLo. 10. Volume overload. 11. Hypernatremia from lack of oral water intake. Plan: Add free water flushes 300 mL every 4 hours with tube feeds. Maintain IV Lasix. Maintain tube feeds. Calcium replaced. Wean FiO2. Continue to assess daily for need for renal placement therapy. No urgency at this time. Ejection fraction 50%. Consider weaning steroids.
[2022-02-02 11:24] LABS: Glucose,Whole Blood 168 mg/dL (70-110)
[2022-02-02 11:49] LABS: Glucose,Whole Blood 134 mg/dL (70-110)
--- NOTE | 2022-02-02 12:05 | P.PN ---
Subjective Progress Note Date: 02/02/22 The patient seen at bedside and per his nurse, he felt patient was moving the right side better yesterday while off sedation. Currently he is on IV [id number]/kg/min and was on 25mcg/kg/min earlier. Objective - Vital Signs Vital signs: Vital Signs Temp 98.8 F 02/02/22 08:00 Pulse 87 02/02/22 11:57 Resp 23 02/02/22 11:00 BP 154/74 02/02/22 11:00 Pulse Ox 96 02/02/22 11:00 FiO2 55 02/02/22 11:42 Intake & Output 02/01/22 02/02/22 02/02/22 18:59 06:59 18:59 Intake Total 2647.074 4672.510 251.753 Output Total 1045 1095 725 Balance 82.490 -54.490 -473.247 Weight 97.9 kg 97.9 kg Intake: IV 361 192 50 Sodium Chloride 0.9% 1, 295 120 20 000 ml @ 75 mls/hr IV . [id number] [facility] Rx#:[id number] pressure bag 66 72 30 Intake, IV Titration 181.490 218.510 81.753 Amount Clevidipine Butyrate 25 4.533 mg In Empty Bag 1 bag @ 1 MG/HR 2 mls/hr IV .Q24H [facility] Rx#:[id number] Piperacillin-Tazobactam 3 100 .375 gm In Sodium Chloride 0.9% 100 ml @ 25 mls/hr IVPB Q12HR [facility] Rx #:[id number] propofoL 1,000 mg In 181.490 118.510 77.220 Empty Bag 1 bag @ 5 MCG/ KG/MIN 2.654 mls/hr IV . Q24H [facility] Rx#:[id number] Tube Feeding 495 540 90 Other 90 90 30 Output: Urine 1045 1095 650 Stool 75 Other: Voiding Method Indwelling Catheter Indwelling Catheter Indwelling Catheter ABP, PAP, CO, CI - Last Documented Arterial Blood Pressure 148/57 - Exam GENERAL: The patient is lying in bed and does not appear in acute distress. LUNG: Intubated on ventilator. NEUROLOGICAL: Limited: IV Propofol 15mcg/kg/min is held currently for 2 hours Higher mental function: The patient is very drowsy but is awakeable to voice. Is following simple commands.. Cranial nerves: Opens his eyes to voice. No facial weakness. Is breathing over the vent. Motor: The strength is lifting slight his upper side to side and slightly attempting to lift above bed (lifting the left side more the right side). Sensation: Unable to assess and with painful stimuli not withdrawing. SOME OF THE WORK-UP DURING THIS HOSPITAL VISIT CONSISTED OF: Patient liver function is trending up Lipid panel is triglyceride of 136, cholesterol 121, LDL 63, HDL is 39. Ammonia level is 10. Creatning is 5.16 CT of the head is reported as no evidence of for acute subacute CVA. I personally reviewed the CT of the head and there is no acute intracranial process seen at this time. There is no bleeding. There is no mass effect and was able to appreciate that. Repeat CT head reported as loss of dodson-white matter differentiation on the left occipital lobe which could represent acute/subacute CVA. This could be compared with MRI. I personally reviewed the CT of the head and I felt was a hard to the appreciate loss of dodson-white matter differentiation on this current CT of the head over the left occipital region Most recent repeat CT head on 02/01/2022: Age-related atrophy and chronic small vessel ischemic change without acute intracranial process seen at this time. The area of decreased attenuation left occipital lobe is redemonstrated. No evidence for hemorrhagic transformation. Carotid duplex is reported as no hemodynamic significant stenosis of the proximal internal carotid arteries by Doppler criteria. Routine EEG is abnormal. The background slowing is suggestive of mild encephalopathy. Otherwise there is no focal slowing, epileptiform discharges or seizure on the EEG. 2-D echo was reported as technically very difficult study for interpretation. Low normal left ventricle. Function with ejection fraction of 50%. Mild ventricular and atypical hypokinesia. Left atrium was not well visualized. - Labs CBC & Chem 7: 02/02/22 04:20 02/02/22 04:20 Labs: Abnormal Lab Results - Last 24 Hours (Table) 02/01/22 02/01/22 02/01/22 Range/Units 12:53 17:42 23:40 WBC (3.8-10.6) k/uL RBC (4.30-5.90) m/uL Hgb (13.0-17.5) gm/dL Hct (39.0-53.0) % Plt Count (150-450) k/uL ABG pO2 (83-108) mmHg ABG O2 Saturation (94-97) % Sodium (137-145) mmol/L Chloride (98-107) mmol/L BUN (9-20) mg/dL Creatinine (0.66-1.25) mg/dL Glucose (74-99) mg/dL POC Glucose (mg/dL) 145 H 198 H 154 H (70-110) mg/dL Calcium (8.4-10.2) mg/dL Ionized Calcium Dhruv (4.5-5.3) mg/dL Total Bilirubin (0.2-1.3) mg/dL AST (17-59) U/L ALT (4-49) U/L Alkaline Phosphatase (38-126) U/L Total Protein (6.3-8.2) g/dL Albumin (3.5-5.0) g/dL 02/02/22 02/02/22 02/02/22 Range/Units 00:14 04:20 04:20 WBC 21.9 H (3.8-10.6) k/uL RBC 3.64 L (4.30-5.90) m/uL Hgb 11.8 L (13.0-17.5) gm/dL Hct 35.8 L (39.0-53.0) % Plt Count 118 L (150-450) k/uL ABG pO2 (83-108) mmHg ABG O2 Saturation (94-97) % Sodium 147 H (137-145) mmol/L Chloride 111 H (98-107) mmol/L BUN 145 H* (9-20) mg/dL Creatinine 6.69 H (0.66-1.25) mg/dL Glucose 148 H (74-99) mg/dL POC Glucose (mg/dL) 146 H (70-110) mg/dL Calcium 6.5 L (8.4-10.2) mg/dL Ionized Calcium Dhruv 3.8 L (4.5-5.3) mg/dL Total Bilirubin 1.4 H (0.2-1.3) mg/dL AST 470 H (17-59) U/L ALT 1636 H (4-49) U/L Alkaline Phosphatase 190 H (38-126) U/L Total Protein 4.4 L (6.3-8.2) g/dL Albumin 2.1 L (3.5-5.0) g/dL 02/02/22 02/02/22 02/02/22 Range/Units 05:56 05:59 11:23 WBC (3.8-10.6) k/uL RBC (4.30-5.90) m/uL Hgb (13.0-17.5) gm/dL Hct (39.0-53.0) % Plt Count (150-450) k/uL ABG pO2 70 L (83-108) mmHg ABG O2 Saturation 93.7 L (94-97) % Sodium (137-145) mmol/L Chloride (98-107) mmol/L BUN (9-20) mg/dL Creatinine (0.66-1.25) mg/dL Glucose (74-99) mg/dL POC Glucose (mg/dL) 170 H 168 H (70-110) mg/dL Calcium (8.4-10.2) mg/dL Ionized Calcium Dhruv (4.5-5.3) mg/dL Total Bilirubin (0.2-1.3) mg/dL AST (17-59) U/L ALT (4-49) U/L Alkaline Phosphatase (38-126) U/L Total Protein (6.3-8.2) g/dL Albumin (3.5-5.0) g/dL 02/02/22 Range/Units 11:47 WBC (3.8-10.6) k/uL RBC (4.30-5.90) m/uL Hgb (13.0-17.5) gm/dL Hct (39.0-53.0) % Plt Count (150-450) k/uL ABG pO2 (83-108) mmHg ABG O2 Saturation (94-97) % Sodium (137-145) mmol/L Chloride (98-107) mmol/L BUN (9-20) mg/dL Creatinine (0.66-1.25) mg/dL Glucose (74-99) mg/dL POC Glucose (mg/dL) 134 H (70-110) mg/dL Calcium (8.4-10.2) mg/dL Ionized Calcium Dhruv (4.5-5.3) mg/dL Total Bilirubin (0.2-1.3) mg/dL AST (17-59) U/L ALT (4-49) U/L Alkaline Phosphatase (38-126) U/L Total Protein (6.3-8.2) g/dL Albumin (3.5-5.0) g/dL Assessment and Plan Assessment: Anoxic encephalopathy due to cardiac arrest--slightly improving Has also component of metabolic and uremic encephalopathy and medication use (IV propofol) Right sided weakness is concerning for stroke: Questionable acute ischemia over left occipital but would not explain his right sided weakness. Per nursing staff yesterday he was moving right arm better while off sedation. Acute cardiac arrest out of the hospital. Unknown exact downtown. Patient was in V. fib and required epinephrine, amiodarone and CPR with 4 defibr[address] Acute inferior wall ST segment elevation VT status post cardiac cath of the PDA Hepatic shock due to cardiac arrest---trending up Acute kidney injury--trending up Proximal atrial fibrillation currently in sinus rhythm History of coronary artery disease status post stenting of the right ICA Previous TIA in 2009 Chronic gout Hepatitis A History of diverticular perforation/colostomy History of DVT Chronic back pain Plan: He is on ASA 81mg daily and Lipitor 80mg daily started by cardiology team. Q2 hour neuro checks. Will consider repeating CT head this weekend and possible CT cervical in addition if continues to have focal deficits. Consider repeating 2D echo because of limitation on the initial. Nephrology team is on board. We'll defer the rest of the medical management to the cardiology primary and ICU team Condition is very guarded at this time. He is making some improvement but unknown to extent of his neurological deficits at this time. Will continue to monitor. The plan was discussed with the patient's nurse. J Luis Vila M.D. Neuro-hospitalist Time with Patient: Less than 30
--- NOTE | 2022-02-02 13:26 | P.PN ---
Subjective Progress Note Date: 02/02/22 Principal diagnosis: Cardiac arrest and acute hypoxic respiratory failure 61-year-old male patient was brought into the hospital after he sustained a cardiac arrest at home. The patient apparently was in V. fib arrest. His have coronary artery disease. The patient also is known to have paroxysmal atrial fibrillation. Family found the patient collapsed on the floor and EMS arrived within 3 minutes after the call. The patient was found to be unresponsive. His breathing was agonal. He had no pulse. He was in V. fib. He required 4 attempts of atrial fibrillation. He was given epinephrine 4 rounds a total of 4 mg and he was also given amiodarone. He was brought into the emergency and initial blood pressure was 186/129. The patient's EKG showed ST segment elevat ion inferior wall myocardial infarction along with underlying atrial fibrillation. The patient was taken for immediate cardiac catheterization and the patient was found to have significant disease in the right PDA, patent stent in the mid RCA, mild disease in the left circumflex and RCA, successful stenting of the right PDA was done without any issues. The patient's LAD and left main had some minimal disease without any high-grade stenosis. The PDA had 80-85% lesion and appropriate stenting was done. The patient was started on aspirin and Plavix. The patient was kept intubated on was brought into the intensive care unit. This morning, the patient is sedated and he is on propofol at the rate of 25 mcg/kg per minute and is adequately sedated without any issues. He is quite successful mechanical ventilator. He is currently on assist control mode at the rate of 24 with a tidal volume of 500 and FiO2 of 50% with a PEEP of 5. His cardiac rhythm is sinus at this point in time. His chest x-ray is showing adequate expansion for both lungs. ET tube is in a good location. No airspace disease or pulmonary infiltrates. There is some mild cardiomegaly noted on the chest x-ray. The patient's blood gases initially showed a pH of 7.17 with a pCO2 of 40 and pO2 of 96 and the follow-up blood gases to be done this morning. Hemodynamically, he is stable on no pressors. His blood work showed a troponin of 1.5 max atelectatic acid level initially was at 5.0 dropped down to 3.4. Ser um bicarb was at 14. BUN is at 19 with a creatinine of 1.2 and the sodium is at 140. White cell count 22.1 with a hemoglobin of 17.6. Current temperature is 90.6F. The patient is currently on aspirin and Plavix. The patient is also on metoprolol at a dose of 25 mg by mouth twice a day. He is also on Zestril 2.5 mg by mouth daily for blood pressure control and he is also on high-dose statins . Noted the patient was taken Xarelto on outpatient basis which I'm assuming given to him for paroxysmal atrial fibrillation. CAT scan of the brain has not been done yet. No seizure activity has been noted. On 01/29/2022, seeing the patient for a follow-up. The patient is post V. fib arrest. The patient remains sedated on propofol and the patient remains unresponsive. No seizure activity has been noted. The patient is currently off her before running at 45 mcg/kg per minute. Were unable to do sedation holiday as the patient remains quite unstable at this point in time. On today's dom luation, the patient remains on propofol. The patient remains on a mechanical ventilator on assist control mode at the rate of 24 with a tidal volume of 500 a FiO2 of 60% with a PEEP of 5. The patient's blood gas showed a pH of 7.09 with a pCO2 of 35 and a pO2 of 96. Chest x-ray shows no evidence of any pneumonia and ET tube is in a good location. The patient spiked a temperature 100.5. This could be a central fever. Aspiration cannot be ruled out and the patient will be started on IV Zosyn. Furthermore, the patient was having issues with an elevated lactic acid level yesterday. Lactic acid level was as high as 6. The patient was given a total of 2 L of IV fluids. Based on the underlying non- anion gap Metabolic acidosis, the patient was started on a bicarb infusion after being given a total of 5 mEq IV push. Note that the morning blood work shows a sodium of 142 with a potassium of 5.8, serum bicarb is at 11 with a chloride of 122. The BUN is at 33 with a creatinine of 2.1. The patient has a urine output of around 20 mL an hour of urine output has dropped and the patient has sustained an acute kidney injury. Norepinephrine infusion is off. The patient has developed also a shock liver with an AST of 2033 and an ALT of 2976. Condition remains extremely critical at this point in time. Reevaluated today on 01/30/2022, patient remains in the ICU, intubated and mechani parminder ventilated. He is on assist control rate of 24th of volume 500 FiO2 50% and PEEP of 5. ABG earlier on 60% FiO2 showed a pO2 of 130 pCO2 37 pH of 7.40 and sodium bicarb was discontinued. Patient is on propofol at 20 mcg/kg/m he is also on norepinephrine at 0.02 mcg/kg/m IV fluid at 100 mL per hour, CVP is around 7. Chest x-ray is showing evidence of interstitial edema/infiltrates, however his CVP is 7 and I'm recommending that we continue IV fluids. Patient remains sedated, apparently he had metabolic encephalopathy secondary to his cardiac arrest, patient is status post stent placement to the PDA. EEG showed encephalopathy but no evidence of seizures. WBC count is 8 hemoglobin is 13.8 electrolytes are normal renal profile showed a BUN of 59 and creatinine 3.77, worsening since admission. RTC the patient developed acute kidney injury. Reevaluated today on 01/31/22, patient remains in the ICU, intubated and mechanically ventilated. Patient is drowsy but following simple instructions. He is generally weak. He is on assist control rate of 24th volume 500 FiO2 50% and PEEP of 5 ABG showed a pO2 of 78 pCO2 36 pH of 7.37 he is presently off propofol to be evaluated by neurology while off propofol. Patient opens eyes to voice, however he is extremely weak able to wiggle toes at times. But could not squeeze my hands. Patient is now off norepinephrine and off all drips. WBC count is 9.1 hemoglobin 13.1 platelets are 110. Electrolytes are normal however his bicarb is 19 normal anion gap. BUN is 82 creatinine 5.16, steadily rising, and the patient is being followed by nephrology, be considered for possible hemodialysis, however considering the patient has decent urine output in the range of 25-50 mL/h, no immediate plans to dialyze the patient at this point Patient was reevaluated today on 02/01/22, patient remains on the ICU, intubated mechanically ventilated, he is on assist control rate of 24th of volume 500 FiO2 50% and PEEP of 5. ABG showed a pO2 of 60 pCO2 35 pH of 7.40, hence I increased the PEEP up to 8 incentive PEEP of 5. Patient remains on propofol at 15 mcg/kg/m, being titrated down in order to assess his mental status today, he is off norepinephrine remains on IV fluid at KVO. Patient opens his eyes, but does not follow any other instructions. He does not seem to be in any distress, does not squeeze hands, does not wiggle toes, does not close eyes when asked to. Chest x-ray showed mostly pulmonary venous hypertension and interstitial edema with bibasilar effusions and atelectasis, strongly doubt pneumonia. Carotid Doppler report today is basically unremarkable. No significant stenosis noted in the proximal internal carotid arteries. Patient continues to have anoxic encephalopathy due to cardiac arrest, not much improvement noted since yesterday. Patient is basically about the same. Again he opens his eyes but does not follow any instructions whatsoever. WBC count is elevated at 15.3 hemoglobin 12.7 in x-ray summary normal renal profile however is worse with a BUN of 111 creatinine 6.15 and that being addressed by nephrology not planning any hemodialysis as the patient is maintaining good urine output all along more Lasix was given today by nephrology Reevaluated today on 02/02/22, patient remains in the ICU, intubated and mechanically ventilated. Not much is happening compared to the last few days, patient is basically about the same. Patient is intubated mechanically ventilated, he is on assist control rate of 24 volume 500 FiO2 55% PEEP of 8 ABG showed a pO2 of 70 pCO2 36 pH of 7.41. Recent CT of the brain showed left occipital infarct. Patient remains on clevidipine 6 mg per hour remains on pro pofol at 25 mcg/kg/m he is on vital HVS 54 mL/h patient is also on Zosyn and Lasix 80 mg daily. Patient is receiving free water flushes 300 mL every 4 hours. Neurologically the patient is about the same, opens eyes, but does not follow any instructions to verbal stimuli. Chest x-ray continues show bilateral infiltrates, opacities. WBC count is 29.9 hemoglobin is 11.8 basic metabolic profile continues to show hyponatremia with a sodium of 147 renal profile remains poor with BUN of 145 creatinine 6.69. Nonetheless the patient continues to have fairly good urine output. Liver enzymes are improving ALT is down to 166 AST 470 and alkaline phosphatase is 190 Objective - Vital Signs Vital signs: Vital Signs Temp 99.4 F 02/02/22 12:00 Pulse 88 02/02/22 12:00 Resp 25 H 02/02/22 12:00 BP 142/75 02/02/22 12:00 Pulse Ox 96 02/02/22 12:00 FiO2 55 02/02/22 12:00 Intake & Output 02/01/22 02/02/22 02/02/22 18:59 06:59 18:59 Intake Total 7342.168 0505.510 261.220 Output Total 1045 1095 860 Balance 82.490 -54.490 -598.780 Weight 97.9 kg 97.9 kg Intake: IV 361 192 56 Sodium Chloride 0.9% 1, 295 120 20 000 ml @ 75 mls/hr IV . [id number] [facility] Rx#:[id number] pressure bag 66 72 36 Intake, IV Titration 181.490 218.510 85.220 Amount Clevidipine Butyrate 25 8.000 mg In Empty Bag 1 bag @ 1 MG/HR 2 mls/hr IV .Q24H [facility] Rx#:[id number] Piperacillin-Tazobactam 3 100 .375 gm In Sodium Chloride 0.9% 100 ml @ 25 mls/hr IVPB Q12HR [facility] Rx #:[id number] propofoL 1,000 mg In 181.490 118.510 77.220 Empty Bag 1 bag @ 5 MCG/ KG/MIN 2.654 mls/hr IV . Q24H [facility] Rx#:[id number] Tube Feeding 495 540 90 Other 90 90 30 Output: Urine 1045 1095 785 Stool 75 Other: Voiding Method Indwelling Catheter Indwelling Catheter Indwelling Catheter ABP, PAP, CO, CI - Last Documented Arterial Blood Pressure 152/56 - Exam Physical Exam: Revealed a 61-year-old white male, intubated, mechanically ventilated, opens eyes upon verbal stimuli but doesn't do anything else, and does not follow any instructions Head: Atraumatic, normocephalic. Endotracheal tube and orogastric tube are intact HEENT:[Neck is supple.] [No neck masses.] [No thyromegaly.] [No JVD.] Chest: [Symmetrical chest expansion, minimal crackles bilaterally especially at the bases. Cardiac Exam: [Normal S1 and S2, no S3 gallop, no murmur.] Abdomen: [Soft, nontender, no megaly, no rebound, no guarding, normal bowel sounds.] Extremities: [No clubbing, no edema, no cyanosis.] Neurological Exam: Patient, opens eyes to verbal stimuli, otherwise negative neurological findings Psychiatric could not be assessed - Labs CBC & Chem 7: 02/02/22 04:20 02/02/22 04:20 Labs: Abnormal Lab Results - Last 24 Hours (Table) 02/01/22 02/01/22 02/02/22 Range/Units 17:42 23:40 00:14 WBC (3.8-10.6) k/uL RBC (4.30-5.90) m/uL Hgb (13.0-17.5) gm/dL Hct (39.0-53.0) % Plt Count (150-450) k/uL ABG pO2 (83-108) mmHg ABG O2 Saturation (94-97) % Sodium (137-145) mmol/L Chloride (98-107) mmol/L BUN (9-20) mg/dL Creatinine (0.66-1.25) mg/dL Glucose (74-99) mg/dL POC Glucose (mg/dL) 198 H 154 H 146 H (70-110) mg/dL Calcium (8.4-10.2) mg/dL Ionized Calcium Dhruv (4.5-5.3) mg/dL Total Bilirubin (0.2-1.3) mg/dL AST (17-59) U/L ALT (4-49) U/L Alkaline Phosphatase (38-126) U/L Total Protein (6.3-8.2) g/dL Albumin (3.5-5.0) g/dL 02/02/22 02/02/22 02/02/22 Range/Units 04:20 04:20 05:56 WBC 21.9 H (3.8-10.6) k/uL RBC 3.64 L (4.30-5.90) m/uL Hgb 11.8 L (13.0-17.5) gm/dL Hct 35.8 L (39.0-53.0) % Plt Count 118 L (150-450) k/uL ABG pO2 (83-108) mmHg ABG O2 Saturation (94-97) % Sodium 147 H (137-145) mmol/L Chloride 111 H (98-107) mmol/L BUN 145 H* (9-20) mg/dL Creatinine 6.69 H (0.66-1.25) mg/dL Glucose 148 H (74-99) mg/dL POC Glucose (mg/dL) 170 H (70-110) mg/dL Calcium 6.5 L (8.4-10.2) mg/dL Ionized Calcium Dhruv 3.8 L (4.5-5.3) mg/dL Total Bilirubin 1.4 H (0.2-1.3) mg/dL AST 470 H (17-59) U/L ALT 1636 H (4-49) U/L Alkaline Phosphatase 190 H (38-126) U/L Total Protein 4.4 L (6.3-8.2) g/dL Albumin 2.1 L (3.5-5.0) g/dL 02/02/22 02/02/22 02/02/22 Range/Units 05:59 11:23 11:47 WBC (3.8-10.6) k/uL RBC (4.30-5.90) m/uL Hgb (13.0-17.5) gm/dL Hct (39.0-53.0) % Plt Count (150-450) k/uL ABG pO2 70 L (83-108) mmHg ABG O2 Saturation 93.7 L (94-97) % Sodium (137-145) mmol/L Chloride (98-107) mmol/L BUN (9-20) mg/dL Creatinine (0.66-1.25) mg/dL Glucose (74-99) mg/dL POC Glucose (mg/dL) 168 H 134 H (70-110) mg/dL Calcium (8.4-10.2) mg/dL Ionized Calcium Dhruv (4.5-5.3) mg/dL Total Bilirubin (0.2-1.3) mg/dL AST (17-59) U/L ALT (4-49) U/L Alkaline Phosphatase (38-126) U/L Total Protein (6.3-8.2) g/dL Albumin (3.5-5.0) g/dL Assessment and Plan Assessment: Impression: Acute hypoxic respiratory failure secondary to cardiac arrest, 01/28/22 patient has been intubated since then, not ready for any weaning at any time soon Cardiac arrest with ventricular fibrillation status post cardioversion, patient is in sinus rhythm. Acute inferior wall myocardial infarction status post stenting of the PDA, patent stent in mid RCA. Paroxysmal atrial fibrillation Tobacco dependence syndrome Previous history of DVT Possible aspiration pneumonia Acute kidney injury, acute tubular necrosis Shock liver secondary to cardiac arrest Possible anoxic brain injury/encephalopathy History of underlying COPD Chronic low back pain History of colostomy and reversal Recommendation: Continue ventilatory support, patient is not ready for weaning considering his neurological status Continue hemodynamic support, remains off norepinephrine Continue GI and DVT prophylaxis Nutritional support/enteral feeding Continue to monitor renal and liver profile. Continue Zosyn, presumptive aspiration Patient is critically ill. Need to arrange for a meeting with his family and discuss future plans, as it is the patient may be heading for potential tracheostomy and PEG tube placement and ECF placement. Critical care time is over 30 minutes Time with Patient: Greater than 30
[2022-02-02 17:42] LABS: Glucose,Whole Blood 173 mg/dL (70-110)
[2022-02-02] MEDS: MORPHINE SULFATE 4 MG/ML SYRINGE IVP PRN (18:24)
--- NOTE | 2022-02-02 18:49 | P.PN ---
Subjective Progress Note Date: 02/02/22 Principal diagnosis: Cardiac arrest status post CPR Inferior STEMI status post PCI to PDA Acute hypoxic respiratory failure status post intubated and mechanical ventilation Metabolic acidosis secondary to above Transaminitis secondary to above 61 years old female with past medical history of COPD, Deep Vein Thrombosis (DVT), GERD/Reflux, Hyperlipidemia, HypertensionOsteoarthritis , coronary artery disease status post stent info obtained from chart and staff witnessed arrest, cardiac arrest, shocked x2 and 4 EPIs given [employer], pulses returned upon arrival to ER room, on admission found to have inferior ST elevation He underwent emergent cardiac cath showing significant disease of the right PDA, status post stents but patent stent in RCA Blood pressure 123/84 Saturating 97%. Pulse is 89 patient is afebrile. leukocytosis 22.1, ph 7.1. Elevated lactic acid at 5.0. Creatinine 1.2 and after discussed with the normal limits. Liver enzymes elevated 847 AST and 636 ALT Urinalysis showed 2+ protein and large blood Chest x-ray: No consolidation Objective - Vital Signs Vital signs: Vital Signs Temp 99.4 F 02/02/22 12:00 Pulse 93 02/02/22 15:00 Resp 16 02/02/22 15:00 BP 145/80 02/02/22 14:30 Pulse Ox 95 02/02/22 15:00 FiO2 55 02/02/22 12:00 Intake & Output 02/01/22 02/02/22 02/02/22 18:59 06:59 18:59 Intake Total 1721.702 4291.510 481.413 Output Total 1045 1095 1420 Balance 82.490 -54.490 -938.587 Weight 97.9 kg 97.9 kg Intake: IV 361 192 74 Sodium Chloride 0.9% 1, 295 120 20 000 ml @ 75 mls/hr IV . [id number] [facility] Rx#:[id number] pressure bag 66 72 54 Intake, IV Titration 181.490 218.510 287.413 Amount Clevidipine Butyrate 25 32.133 mg In Empty Bag 1 bag @ 1 MG/HR 2 mls/hr IV .Q24H [facility] Rx#:[id number] Piperacillin-Tazobactam 3 100 100 .375 gm In Sodium Chloride 0.9% 100 ml @ 25 mls/hr IVPB Q12HR [facility] Rx #:[id number] propofoL 1,000 mg In 181.490 118.510 155.280 Empty Bag 1 bag @ 5 MCG/ KG/MIN 2.654 mls/hr IV . Q24H [facility] Rx#:[id number] Tube Feeding 495 540 90 Other 90 90 30 Output: Urine 1045 1095 1345 Stool 75 Other: Voiding Method Indwelling Catheter Indwelling Catheter Indwelling Catheter ABP, PAP, CO, CI - Last Documented Arterial Blood Pressure 159/59 - Exam -GENERAL: The patient is sedated and intubated HEENT: Pupils are round and equally reacting to light. EOMI. No scleral icterus. No conjunctival pallor. Normocephalic, atraumatic. No pharyngeal erythema. No thyromegaly. CARDIOVASCULAR: S1 and S2 present. No murmurs, rubs, or gallops. PULMONARY: Chest is clear to auscultation, no wheezing or crackles. ABDOMEN: Soft, nontender, nondistended, normoactive bowel sounds. No palpable organomegaly. MUSCULOSKELETAL: No joint swelling or deformity. EXTREMITIES: No cyanosis, clubbing, or pedal edema. NEUROLOGICAL: Gross neurological examination did not reveal any focal deficits. SKIN: No rashes. no petechiae. - Labs CBC & Chem 7: 02/02/22 04:20 02/02/22 04:20 Labs: Abnormal Lab Results - Last 24 Hours (Table) 02/01/22 02/01/22 02/02/22 Range/Units 17:42 23:40 00:14 WBC (3.8-10.6) k/uL RBC (4.30-5.90) m/uL Hgb (13.0-17.5) gm/dL Hct (39.0-53.0) % Plt Count (150-450) k/uL ABG pO2 (83-108) mmHg ABG O2 Saturation (94-97) % Sodium (137-145) mmol/L Chloride (98-107) mmol/L BUN (9-20) mg/dL Creatinine (0.66-1.25) mg/dL Glucose (74-99) mg/dL POC Glucose (mg/dL) 198 H 154 H 146 H (70-110) mg/dL Calcium (8.4-10.2) mg/dL Ionized Calcium Dhruv (4.5-5.3) mg/dL Total Bilirubin (0.2-1.3) mg/dL AST (17-59) U/L ALT (4-49) U/L Alkaline Phosphatase (38-126) U/L Total Protein (6.3-8.2) g/dL Albumin (3.5-5.0) g/dL 02/02/22 02/02/22 02/02/22 Range/Units 04:20 04:20 05:56 WBC 21.9 H (3.8-10.6) k/uL RBC 3.64 L (4.30-5.90) m/uL Hgb 11.8 L (13.0-17.5) gm/dL Hct 35.8 L (39.0-53.0) % Plt Count 118 L (150-450) k/uL ABG pO2 (83-108) mmHg ABG O2 Saturation (94-97) % Sodium 147 H (137-145) mmol/L Chloride 111 H (98-107) mmol/L BUN 145 H* (9-20) mg/dL Creatinine 6.69 H (0.66-1.25) mg/dL Glucose 148 H (74-99) mg/dL POC Glucose (mg/dL) 170 H (70-110) mg/dL Calcium 6.5 L (8.4-10.2) mg/dL Ionized Calcium Dhruv 3.8 L (4.5-5.3) mg/dL Total Bilirubin 1.4 H (0.2-1.3) mg/dL AST 470 H (17-59) U/L ALT 1636 H (4-49) U/L Alkaline Phosphatase 190 H (38-126) U/L Total Protein 4.4 L (6.3-8.2) g/dL Albumin 2.1 L (3.5-5.0) g/dL 02/02/22 02/02/22 02/02/22 Range/Units 05:59 11:23 11:47 WBC (3.8-10.6) k/uL RBC (4.30-5.90) m/uL Hgb (13.0-17.5) gm/dL Hct (39.0-53.0) % Plt Count (150-450) k/uL ABG pO2 70 L (83-108) mmHg ABG O2 Saturation 93.7 L (94-97) % Sodium (137-145) mmol/L Chloride (98-107) mmol/L BUN (9-20) mg/dL Creatinine (0.66-1.25) mg/dL Glucose (74-99) mg/dL POC Glucose (mg/dL) 168 H 134 H (70-110) mg/dL Calcium (8.4-10.2) mg/dL Ionized Calcium Dhruv (4.5-5.3) mg/dL Total Bilirubin (0.2-1.3) mg/dL AST (17-59) U/L ALT (4-49) U/L Alkaline Phosphatase (38-126) U/L Total Protein (6.3-8.2) g/dL Albumin (3.5-5.0) g/dL Assessment and Plan Assessment: cardiac arrest status post CPR Inferior STEMI status post PCI to PDA Acute hypoxic respiratory failure status post intubated and mechanical ventilation Metabolic acidosis secondary to above Transaminitis secondary to above Altered mental status secondary to above, rule out anoxic brain injury History of Deep venous thrombosis on Xarelto at home Hypertension Hyperlipidemia History of GERD History of facial MRSA Plan: this is a 61 years old male presents with cardiac arrest This is a 61 years old male who presents with cardiac arrest underwent CPR. Continue with intubation and mechanical ventilation Cardiology team on the case as well as pulmonary/critical care team Continue with Zosyn Continue with IV Solu Medrol monitor creatinine and urine output and input Continue with aspirin and Plavix Other cardiac medications management deferred to cardiology team including statin, metoprolol and lisinopril small dose. Labs and medication were reviewed.. Continue same treatment. Continue with symptomatic treatment. Resume home medication. Monitor lytes and vitals. DVT and GI prophylaxis. Further recommendations as per clinical course of the patient DVT prophylaxis: Aspirin and Plavix GI Prophylaxis: Pepcid Prognosis is guarded
[2022-02-02] MEDS: ATORVASTATIN 80 MG TAB PO SCH (21:02)
[2022-02-03 00:13] LABS: Glucose,Whole Blood 164 mg/dL (70-110)
[2022-02-03] MEDS: INSULIN ASPART (NovoLOG) 100 UNIT/ML VIAL SQ SCH ×4 (00:24→18:27)
[2022-02-03] MEDS: methylPREDNISolone SOD SUCCI 40 MG/ML 1 ML VIAL IV SCH ×2 (00:24→20:53)
[2022-02-03] MEDS: CLEVIDIPINE BUTYRATE 25 MG in EMPTY BAG 1 BAG IV SCH ×8 (02:12→21:32)
--- NOTE | 2022-02-03 03:13 | P.PN ---
Subjective PROGRESS NOTE The patient is a 61-year-old male with a known history of CAD, chronic tobacco use, paroxysmal atrial fibrillation who presented with cardiac arrest and ventricular fibrillation per EMS requiring cardioversion 4. On his initial EKG he was in atrial fibrillation with ST segment elevation inferiorly and underwent stenting of his right PDA. He continues to be intubated, in sinus mechanism with improvement in his ST elevation. He is on no vasopressor. His urinary output is stable. He has no evidence of recurrent ventricular t achycardia. In the past his left ventricle systolic function was normal. January 29: The patient remains intubated in sinus tachycardia. There is no evidence of ventricular ectopic activity. He was febrile earlier. He remains sedated. He had some movement of his arms yesterday. He has an elevation of his liver function test as well as worsening of his renal functions. His urine output is low but stable. His blood pressure has been stable. He has no further ventricle tachycardia. He is acidotic and being started on sodium bicarb drip. He underwent placement of an art line and triple lumen yesterday. 01/30 Patient seen and examined. Patient remains intubated and sedated. Per nursing patient had sedation holiday without purposeful movements. His liver enzymes have increase most consistent with shock liver as well as creatinine increasing. He has been receiving IV fluids with normal saline at 100 mL per hour in addition to bicarb drip at 150 mL per hour. Has been off and on low-dose norepinephrine. Echocardiogram pending this morning. 01/31 Patient seen and examined. Echocardiogram performed yesterday shows EF 50-55%. Remains intubated and sedated. Patient is on sedation holiday and currently more lethargic however per nurse he was following some commands with neurology. Has been off of norepinephrine over the last 2 hours. He did receive Lasix 80 mg IV push 1 with improvement in urine output approximately 25 mL per hour currently. Creatinine again increased up to 5 and nephrology has been following. 02/01 Patient seen and examined. Patient remains sedated on propofol. Has been receiving IV fluids however increased upper and lower extremity edema and incre ased vascular congestion on chest x-ray. Blood pressures have been somewhat more elevated. Liver enzymes from yesterday somewhat improved, liver enzymes from today not resulted. 02/02 Patient seen and examined. Patient remains sedated and intubated however per nursing was able to wean sedation a follow-up most all of commands yesterday and currently has been undergoing weaning of sedation and this morning. Blood pressures were better controlled however with weaning of sedation systolics up to 170s. Hydralazine was added yesterday. We will use cleviprex to better titrate blood pressure. Has become mildly hypernatremic. Creatinine going up however still making good urine. Liver enzymes have continued to improve yesterday. Remains on 55% FiO2 with PEEP of 8. CT brain yesterday morning that showed concern of left occipital stroke however by review from neurology not clear and repeat did not clearly show acute/subacute stroke. CVP unclear if accurate however appears around 8. Receiving tube feeds at 45 mL per hour. 02/03 Patient seen and examined. Patient's sodium had increased yesterday and therefore free water flushes that increase. Has required intermittent adjustments to the Cleviprex. He apparently had been attempted to be weaned with sedation holiday however not as responsive. Still at 55% FiO2 with a PEEP of 8. Neck negative for last 24 hours and received Lasix IV yesterday. Medications: Vitals reviewed LUNGS: Clear to auscultation anteriorly, no wheezes HEART: Regular rate and rhythm, S1, S2. No S3. No systolic murmur ABDOMEN: Soft, nontender, no organomegaly EXTREMETIES: 1+ LE edema. Intubated and sedated IMPRESSION: 1. Acute cardiac arrest with ventricular fibrillation status post cardioversion. Continues to be in sinus mechanism 2. Evidence of acute inferior myocardial infarction on admission with stenting of the PDA patent stent in the mid RCA 3. Prior history of paroxysmal atrial fibrillation 4. History of hyperlipidemia 5. Rule out anoxic encephalopathy 6. Chronic tobacco use 7. Worsening liver functions, likely shock liver, currently improving 8. Prior history of DVT 9. Fever possible aspiration pneumonia 10. Acute renal injury 11. Acute on chronic diastolic heart failure, component of acute kidney injury as well PLAN: Continue with supportive care. Continue Lasix as needed. Unclear neurologic response with patient unable to be extubated and not fully following commands yesterday. Continue to attempt to wean sedation as able. Objective - Vital Signs Vital signs: Vital Signs Temp 98.5 F 02/03/22 00:00 Pulse 89 02/03/22 01:00 Resp 18 02/03/22 01:00 BP 126/72 02/03/22 01:00 Pulse Ox 97 02/03/22 01:00 FiO2 55 02/03/22 00:00 Intake & Output 02/02/22 02/02/22 02/03/22 06:59 18:59 06:59 Intake Total 7911.480 5764.080 816.416 Output Total 1095 1915 935 Balance -54.490 -464.920 -118.584 Weight 97.9 kg 97.9 kg Intake: IV 192 92 154 0.9 NaCl 30 Piperacillin-Tazobactam 3 100 .375 gm In Sodium Chloride 0.9% 100 ml @ 25 mls/hr IVPB Q12HR [facility] Rx #:[id number] Sodium Chloride 0.9% 1, 120 20 000 ml @ 75 mls/hr IV . [id number] [facility] Rx#:[id number] pressure bag 72 72 24 Intake, IV Titration 218.510 310.080 226.416 Amount Clevidipine Butyrate 25 54.800 143.933 mg In Empty Bag 1 bag @ 1 MG/HR 2 mls/hr IV .Q24H [facility] Rx#:[id number] Piperacillin-Tazobactam 3 100 100 .375 gm In Sodium Chloride 0.9% 100 ml @ 25 mls/hr IVPB Q12HR [facility] Rx #:[id number] propofoL 1,000 mg In 118.510 155.280 82.483 Empty Bag 1 bag @ 5 MCG/ KG/MIN 2.654 mls/hr IV . Q24H [facility] Rx#:[id number] Tube Feeding 540 418 136 Other 90 630 300 Output: Urine 1095 1840 935 Stool 75 Other: Voiding Method Indwelling Catheter Indwelling Catheter Indwelling Catheter ABP, PAP, CO, CI - Last Documented Arterial Blood Pressure 158/57 - Labs CBC & Chem 7: 02/02/22 04:20 02/02/22 04:20 Labs: Abnormal Lab Results - Last 24 Hours (Table) 02/02/22 02/02/22 02/02/22 Range/Units 04:20 04:20 05:56 WBC 21.9 H (3.8-10.6) k/uL RBC 3.64 L (4.30-5.90) m/uL Hgb 11.8 L (13.0-17.5) gm/dL Hct 35.8 L (39.0-53.0) % Plt Count 118 L (150-450) k/uL ABG pO2 (83-108) mmHg ABG O2 Saturation (94-97) % Sodium 147 H (137-145) mmol/L Chloride 111 H (98-107) mmol/L BUN 145 H* (9-20) mg/dL Creatinine 6.69 H (0.66-1.25) mg/dL Glucose 148 H (74-99) mg/dL POC Glucose (mg/dL) 170 H (70-110) mg/dL Calcium 6.5 L (8.4-10.2) mg/dL Ionized Calcium Dhruv 3.8 L (4.5-5.3) mg/dL Total Bilirubin 1.4 H (0.2-1.3) mg/dL AST 470 H (17-59) U/L ALT 1636 H (4-49) U/L Alkaline Phosphatase 190 H (38-126) U/L Total Protein 4.4 L (6.3-8.2) g/dL Albumin 2.1 L (3.5-5.0) g/dL 02/02/22 02/02/22 02/02/22 Range/Units 05:59 11:23 11:47 WBC (3.8-10.6) k/uL RBC (4.30-5.90) m/uL Hgb (13.0-17.5) gm/dL Hct (39.0-53.0) % Plt Count (150-450) k/uL ABG pO2 70 L (83-108) mmHg ABG O2 Saturation 93.7 L (94-97) % Sodium (137-145) mmol/L Chloride (98-107) mmol/L BUN (9-20) mg/dL Creatinine (0.66-1.25) mg/dL Glucose (74-99) mg/dL POC Glucose (mg/dL) 168 H 134 H (70-110) mg/dL Calcium (8.4-10.2) mg/dL Ionized Calcium Dhruv (4.5-5.3) mg/dL Total Bilirubin (0.2-1.3) mg/dL AST (17-59) U/L ALT (4-49) U/L Alkaline Phosphatase (38-126) U/L Total Protein (6.3-8.2) g/dL Albumin (3.5-5.0) g/dL 02/02/22 02/03/22 Range/Units 17:40 00:12 WBC (3.8-10.6) k/uL RBC (4.30-5.90) m/uL Hgb (13.0-17.5) gm/dL Hct (39.0-53.0) % Plt Count (150-450) k/uL ABG pO2 (83-108) mmHg ABG O2 Saturation (94-97) % Sodium (137-145) mmol/L Chloride (98-107) mmol/L BUN (9-20) mg/dL Creatinine (0.66-1.25) mg/dL Glucose (74-99) mg/dL POC Glucose (mg/dL) 173 H 164 H (70-110) mg/dL Calcium (8.4-10.2) mg/dL Ionized Calcium Dhruv (4.5-5.3) mg/dL Total Bilirubin (0.2-1.3) mg/dL AST (17-59) U/L ALT (4-49) U/L Alkaline Phosphatase (38-126) U/L Total Protein (6.3-8.2) g/dL Albumin (3.5-5.0) g/dL
[2022-02-03] MEDS: IPRATROPIUM-ALBUTEROL 3 ML NEB INHALATION SCH ×6 (03:43→23:36)
[2022-02-03 04:27] LABS: HCT 38.4 % (39.0-53.0); MCH 33.6 pg (25.0-35.0); MCHC 33.9 g/dL (31.0-37.0); MCV 99.2 fL (80.0-100.0); Macrocytosis Slight; Mean Platelet Volume 11.7; Platelet Count 172 k/uL (150-450); RBC 3.88 m/uL (4.30-5.90); RDW 14.6 % (11.5-15.5); WBC 33.2 k/uL (3.8-10.6)
[2022-02-03 04:53] LABS: Albumin 2.4 g/dL (3.5-5.0); Calcium 6.9 mg/dL (8.4-10.2); Potassium 4.5 mmol/L (3.5-5.1); Total Bilirubin 1.2 mg/dL (0.2-1.3); Total Protein 4.8 g/dL (6.3-8.2)
[2022-02-03 05:50] LABS: Glucose,Whole Blood 147 mg/dL (70-110)
[2022-02-03 06:15] LABS: ABG Base Excess -2.8 mmol/L; ABG HCO3 22 mmol/L (21-25); ABG Oxygen Saturation 94.8 % (94-97); ABG PCO2 38 mmHg (35-45); ABG PH 7.38 (7.35-7.45); ABG PO2 77 mmHg (83-108); ABG TCO2 23 mmol/L (19-24); Allen Test Performed? Yes
--- NOTE | 2022-02-03 06:26 | XR ---
EXAMINATION TYPE: XR chest 1V portable DATE OF EXAM: 02/03/2022 CLINICAL HISTORY: Difficulty breathing and CHF progress study. TECHNIQUE: Single AP portable semiupright view of the chest is obtained. COMPARISON: Chest x-ray from one day earlier and older studies. FINDINGS: Stable endotracheal and orogastric tubes. 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 Persistent bibasilar opacities an small left pleural effusion. Cardiac silhouette size stable and upp er limits of normal. Osseous structures are intact. IMPRESSION: Small left pleural effusion with bibasilar acute infiltrate and/or atelectasis redemonstr ated. No significant change from one day earlier.
[2022-02-03 06:45] LABS: Glucose,Whole Blood 159 mg/dL (70-110)
[2022-02-03] MEDS: CALCIUM ACETATE 667 MG TAB PO SCH ×3 (06:48→18:30)
[2022-02-03] MEDS ORDERED: CALCIUM GLUCONATE IN NACL 2 GM in SALINE 1 100ML.BAG IVPB ONE (07:00)
[2022-02-03] MEDS ORDERED: SODIUM BICARB 8.4% 50 ML SYR (1 MEQ/ML) IV STA ×2 (08:05→08:13)
[2022-02-03] MEDS: PIPERACILLIN-TAZOBACTAM 3.375 GM in SODIUM CHLORIDE 0.9% 100 ML IVPB SCH ×2 (08:25→20:54)
[2022-02-03] MEDS: FAMOTIDINE 20 MG/2 ML VIAL IV SCH (08:27)
[2022-02-03] MEDS: CHLORHEXIDINE GLUCONATE 15 ML CUP MUCOUS MEM SCH ×2 (08:27→20:53)
[2022-02-03] MEDS: hydrALAZINE HCL 25 MG TAB PO SCH ×4 (08:27→22:35)
[2022-02-03] MEDS: METOPROLOL TARTRATE 25 MG TAB PO SCH ×2 (08:27→20:53)
[2022-02-03] MEDS: CLOPIDOGREL 75 MG TAB PO SCH (08:27)
[2022-02-03] MEDS: ASPIRIN 81 MG PO SCH (08:27)
--- NOTE | 2022-02-03 08:56 | P.PN ---
Subjective Patient is seen in follow for acute kidney injury. Creatinine stable at 6.59 today. BUN up to 174. On IV Lasix as well as IV steroids. Nonoliguric. Remains intubated. On 55% FiO2. Receiving tube feeds. On Cleviprex. Vital signs are stable. HEENT: Intubated. LUNGS: Breath sounds decreased. HEART: Rate and Rhythm are regular. ABDOMEN: Soft, no distention. EXTREMITITES: Trace edema. Objective - Vital Signs Vital signs: Vital Signs Temp 98.9 F 02/03/22 08:00 Pulse 98 02/03/22 08:19 Resp 16 02/03/22 08:00 BP 149/68 02/03/22 07:00 Pulse Ox 99 02/03/22 08:00 FiO2 55 02/03/22 08:00 Intake & Output 02/02/22 02/03/22 02/03/22 18:59 06:59 18:59 Intake Total 4525.166 1203.416 260.777 Output Total 1915 1935 540 Balance -464.920 31.416 -279.223 Weight 97.9 kg 96.4 kg Intake: IV 92 282 12 0.9 NaCl 110 Piperacillin-Tazobactam 3 100 .375 gm In Sodium Chloride 0.9% 100 ml @ 25 mls/hr IVPB Q12HR [facility] Rx #:[id number] Sodium Chloride 0.9% 1, 20 000 ml @ 75 mls/hr IV . [id number] [facility] Rx#:[id number] pressure bag 72 72 12 Intake, IV Titration 310.080 376.416 214.777 Amount Calcium Gluconate in NaCl 100 2 gm In Saline 1 100ml. bag @ 100 mls/hr IVPB ONCE ONE Rx#:[id number] Clevidipine Butyrate 25 54.800 193.933 60.599 mg In Empty Bag 1 bag @ 1 MG/HR 2 mls/hr IV .Q24H [facility] Rx#:[id number] Piperacillin-Tazobactam 3 100 .375 gm In Sodium Chloride 0.9% 100 ml @ 25 mls/hr IVPB Q12HR [facility] Rx #:[id number] propofoL 1,000 mg In 155.280 182.483 54.178 Empty Bag 1 bag @ 5 MCG/ KG/MIN 2.654 mls/hr IV . Q24H [facility] Rx#:[id number] Tube Feeding 418 408 34 Other 630 900 Output: Urine 1840 1935 540 Stool 75 Other: Voiding Method Indwelling Catheter Indwelling Catheter ABP, PAP, CO, CI - Last Documented Arterial Blood Pressure 169/63 - Labs CBC & Chem 7: 02/03/22 04:20 02/03/22 04:20 Labs: Abnormal Lab Results - Last 24 Hours (Table) 02/02/22 02/02/22 02/02/22 Range/Units 11:23 11:47 17:40 WBC (3.8-10.6) k/uL RBC (4.30-5.90) m/uL Hct (39.0-53.0) % ABG pO2 (83-108) mmHg Carbon Dioxide (22-30) mmol/L BUN (9-20) mg/dL Creatinine (0.66-1.25) mg/dL Glucose (74-99) mg/dL POC Glucose (mg/dL) 168 H 134 H 173 H (70-110) mg/dL Calcium (8.4-10.2) mg/dL Ionized Calcium Dhruv (4.5-5.3) mg/dL AST (17-59) U/L ALT (4-49) U/L Alkaline Phosphatase (38-126) U/L Total Protein (6.3-8.2) g/dL Albumin (3.5-5.0) g/dL 02/03/22 02/03/22 02/03/22 Range/Units 00:12 04:20 04:20 WBC 33.2 H (3.8-10.6) k/uL RBC 3.88 L (4.30-5.90) m/uL Hct 38.4 L (39.0-53.0) % ABG pO2 (83-108) mmHg Carbon Dioxide 21 L (22-30) mmol/L BUN 174 H* (9-20) mg/dL Creatinine 6.59 H (0.66-1.25) mg/dL Glucose 130 H (74-99) mg/dL POC Glucose (mg/dL) 164 H (70-110) mg/dL Calcium 6.9 L (8.4-10.2) mg/dL Ionized Calcium Dhruv (4.5-5.3) mg/dL AST 338 H (17-59) U/L ALT 1131 H (4-49) U/L Alkaline Phosphatase 237 H (38-126) U/L Total Protein 4.8 L (6.3-8.2) g/dL Albumin 2.4 L (3.5-5.0) g/dL 02/03/22 02/03/22 02/03/22 Range/Units 04:20 05:48 06:12 WBC (3.8-10.6) k/uL RBC (4.30-5.90) m/uL Hct (39.0-53.0) % ABG pO2 77 L (83-108) mmHg Carbon Dioxide (22-30) mmol/L BUN (9-20) mg/dL Creatinine (0.66-1.25) mg/dL Glucose (74-99) mg/dL POC Glucose (mg/dL) 147 H (70-110) mg/dL Calcium (8.4-10.2) mg/dL Ionized Calcium Dhruv 3.9 L (4.5-5.3) mg/dL AST (17-59) U/L ALT (4-49) U/L Alkaline Phosphatase (38-126) U/L Total Protein (6.3-8.2) g/dL Albumin (3.5-5.0) g/dL 02/03/22 Range/Units 06:43 WBC (3.8-10.6) k/uL RBC (4.30-5.90) m/uL Hct (39.0-53.0) % ABG pO2 (83-108) mmHg Carbon Dioxide (22-30) mmol/L BUN (9-20) mg/dL Creatinine (0.66-1.25) mg/dL Glucose (74-99) mg/dL POC Glucose (mg/dL) 159 H (70-110) mg/dL Calcium (8.4-10.2) mg/dL Ionized Calcium Dhruv (4.5-5.3) mg/dL AST (17-59) U/L ALT (4-49) U/L Alkaline Phosphatase (38-126) U/L Total Protein (6.3-8.2) g/dL Albumin (3.5-5.0) g/dL Assessment and Plan Plan: Assessment: 1. Acute kidney injury secondary to ATN secondary to cardiac arrest. Baseline creatinine near 1 and peaked at 6.69 this admission - stable at 6.59 today. Elevated BUN due to acute kidney injury, hypercatabolic state, Lasix and steroids. No evidence of GI bleed. Nonoliguric. Urine output 100-200 mL an hour. No hydronephrosis noted on kidney ultrasound. 2. Status post V. fib arrest on 02/24/2022. 3. Coronary disease status post right PDA stenting on 02/24/2022. 4. Shock liver. 5. Fever. Questionable aspiration pneumonia. On antibiotics. 6. Anoxic brain injury. Improving. Neurology following. 7. Metabolic acidosis secondary to acute kidney injury, IV fluids and lactic acidosis. Improved. 8. Hypocalcemia secondary to acute kidney injury. 9. Hyperphosphatemia secondary to acute kidney injury. On PhosLo. 10. Volume overload. Improving with diuresis. 11. Hypernatremia from lack of oral water intake. Better. Plan: Maintain tube feeds with water flushes. Hold IV Lasix due to rising BUN. Consider weaning/stopping steroids. Maintain tube feeds. Calcium replaced. Wean FiO2. Continue to assess daily for need for renal placement therapy. No urgency at this time. Ejection fraction 50%.
[2022-02-03 11:11] LABS: Glucose,Whole Blood 153 mg/dL (70-110)
--- NOTE | 2022-02-03 11:20 | P.PN ---
Subjective Progress Note Date: 02/03/22 Principal diagnosis: Cardiac arrest and acute hypoxic respiratory failure 61-year-old male patient was brought into the hospital after he sustained a cardiac arrest at home. The patient apparently was in V. fib arrest. His have coronary artery disease. The patient also is known to have paroxysmal atrial fibrillation. Family found the patient collapsed on the floor and EMS arrived within 3 minutes after the call. The patient was found to be unresponsive. His breathing was agonal. He had no pulse. He was in V. fib. He required 4 attempts of atrial fibrillation. He was given epinephrine 4 rounds a total of 4 mg and he was also given amiodarone. He was brought into the emergency and initial blood pressure was 186/129. The patient's EKG showed ST segment elevat ion inferior wall myocardial infarction along with underlying atrial fibrillation. The patient was taken for immediate cardiac catheterization and the patient was found to have significant disease in the right PDA, patent stent in the mid RCA, mild disease in the left circumflex and RCA, successful stenting of the right PDA was done without any issues. The patient's LAD and left main had some minimal disease without any high-grade stenosis. The PDA had 80-85% lesion and appropriate stenting was done. The patient was started on aspirin and Plavix. The patient was kept intubated on was brought into the intensive care unit. This morning, the patient is sedated and he is on propofol at the rate of 25 mcg/kg per minute and is adequately sedated without any issues. He is quite successful mechanical ventilator. He is currently on assist control mode at the rate of 24 with a tidal volume of 500 and FiO2 of 50% with a PEEP of 5. His cardiac rhythm is sinus at this point in time. His chest x-ray is showing adequate expansion for both lungs. ET tube is in a good location. No airspace disease or pulmonary infiltrates. There is some mild cardiomegaly noted on the chest x-ray. The patient's blood gases initially showed a pH of 7.17 with a pCO2 of 40 and pO2 of 96 and the follow-up blood gases to be done this morning. Hemodynamically, he is stable on no pressors. His blood work showed a troponin of 1.5 max atelectatic acid level initially was at 5.0 dropped down to 3.4. Ser um bicarb was at 14. BUN is at 19 with a creatinine of 1.2 and the sodium is at 140. White cell count 22.1 with a hemoglobin of 17.6. Current temperature is 90.6F. The patient is currently on aspirin and Plavix. The patient is also on metoprolol at a dose of 25 mg by mouth twice a day. He is also on Zestril 2.5 mg by mouth daily for blood pressure control and he is also on high-dose statins . Noted the patient was taken Xarelto on outpatient basis which I'm assuming given to him for paroxysmal atrial fibrillation. CAT scan of the brain has not been done yet. No seizure activity has been noted. On 01/29/2022, seeing the patient for a follow-up. The patient is post V. fib arrest. The patient remains sedated on propofol and the patient remains unresponsive. No seizure activity has been noted. The patient is currently off her before running at 45 mcg/kg per minute. Were unable to do sedation holiday as the patient remains quite unstable at this point in time. On today's dom luation, the patient remains on propofol. The patient remains on a mechanical ventilator on assist control mode at the rate of 24 with a tidal volume of 500 a FiO2 of 60% with a PEEP of 5. The patient's blood gas showed a pH of 7.09 with a pCO2 of 35 and a pO2 of 96. Chest x-ray shows no evidence of any pneumonia and ET tube is in a good location. The patient spiked a temperature 100.5. This could be a central fever. Aspiration cannot be ruled out and the patient will be started on IV Zosyn. Furthermore, the patient was having issues with an elevated lactic acid level yesterday. Lactic acid level was as high as 6. The patient was given a total of 2 L of IV fluids. Based on the underlying non- anion gap Metabolic acidosis, the patient was started on a bicarb infusion after being given a total of 5 mEq IV push. Note that the morning blood work shows a sodium of 142 with a potassium of 5.8, serum bicarb is at 11 with a chloride of 122. The BUN is at 33 with a creatinine of 2.1. The patient has a urine output of around 20 mL an hour of urine output has dropped and the patient has sustained an acute kidney injury. Norepinephrine infusion is off. The patient has developed also a shock liver with an AST of 2033 and an ALT of 2976. Condition remains extremely critical at this point in time. Reevaluated today on 01/30/2022, patient remains in the ICU, intubated and mechani parminder ventilated. He is on assist control rate of 24th of volume 500 FiO2 50% and PEEP of 5. ABG earlier on 60% FiO2 showed a pO2 of 130 pCO2 37 pH of 7.40 and sodium bicarb was discontinued. Patient is on propofol at 20 mcg/kg/m he is also on norepinephrine at 0.02 mcg/kg/m IV fluid at 100 mL per hour, CVP is around 7. Chest x-ray is showing evidence of interstitial edema/infiltrates, however his CVP is 7 and I'm recommending that we continue IV fluids. Patient remains sedated, apparently he had metabolic encephalopathy secondary to his cardiac arrest, patient is status post stent placement to the PDA. EEG showed encephalopathy but no evidence of seizures. WBC count is 8 hemoglobin is 13.8 electrolytes are normal renal profile showed a BUN of 59 and creatinine 3.77, worsening since admission. RTC the patient developed acute kidney injury. Reevaluated today on 01/31/22, patient remains in the ICU, intubated and mechanically ventilated. Patient is drowsy but following simple instructions. He is generally weak. He is on assist control rate of 24th volume 500 FiO2 50% and PEEP of 5 ABG showed a pO2 of 78 pCO2 36 pH of 7.37 he is presently off propofol to be evaluated by neurology while off propofol. Patient opens eyes to voice, however he is extremely weak able to wiggle toes at times. But could not squeeze my hands. Patient is now off norepinephrine and off all drips. WBC count is 9.1 hemoglobin 13.1 platelets are 110. Electrolytes are normal however his bicarb is 19 normal anion gap. BUN is 82 creatinine 5.16, steadily rising, and the patient is being followed by nephrology, be considered for possible hemodialysis, however considering the patient has decent urine output in the range of 25-50 mL/h, no immediate plans to dialyze the patient at this point Patient was reevaluated today on 02/01/22, patient remains on the ICU, intubated mechanically ventilated, he is on assist control rate of 24th of volume 500 FiO2 50% and PEEP of 5. ABG showed a pO2 of 60 pCO2 35 pH of 7.40, hence I increased the PEEP up to 8 incentive PEEP of 5. Patient remains on propofol at 15 mcg/kg/m, being titrated down in order to assess his mental status today, he is off norepinephrine remains on IV fluid at KVO. Patient opens his eyes, but does not follow any other instructions. He does not seem to be in any distress, does not squeeze hands, does not wiggle toes, does not close eyes when asked to. Chest x-ray showed mostly pulmonary venous hypertension and interstitial edema with bibasilar effusions and atelectasis, strongly doubt pneumonia. Carotid Doppler report today is basically unremarkable. No significant stenosis noted in the proximal internal carotid arteries. Patient continues to have anoxic encephalopathy due to cardiac arrest, not much improvement noted since yesterday. Patient is basically about the same. Again he opens his eyes but does not follow any instructions whatsoever. WBC count is elevated at 15.3 hemoglobin 12.7 in x-ray summary normal renal profile however is worse with a BUN of 111 creatinine 6.15 and that being addressed by nephrology not planning any hemodialysis as the patient is maintaining good urine output all along more Lasix was given today by nephrology Reevaluated today on 02/02/22, patient remains in the ICU, intubated and mechanically ventilated. Not much is happening compared to the last few days, patient is basically about the same. Patient is intubated mechanically ventilated, he is on assist control rate of 24 volume 500 FiO2 55% PEEP of 8 ABG showed a pO2 of 70 pCO2 36 pH of 7.41. Recent CT of the brain showed left occipital infarct. Patient remains on clevidipine 6 mg per hour remains on pro pofol at 25 mcg/kg/m he is on vital HVS 54 mL/h patient is also on Zosyn and Lasix 80 mg daily. Patient is receiving free water flushes 300 mL every 4 hours. Neurologically the patient is about the same, opens eyes, but does not follow any instructions to verbal stimuli. Chest x-ray continues show bilateral infiltrates, opacities. WBC count is 29.9 hemoglobin is 11.8 basic metabolic profile continues to show hyponatremia with a sodium of 147 renal profile remains poor with BUN of 145 creatinine 6.69. Nonetheless the patient continues to have fairly good urine output. Liver enzymes are improving ALT is down to 166 AST 470 and alkaline phosphatase is 190 Reevaluated today on 02/13/2022, patient remains in the ICU, intubated and mechanically ventilated. Family members including his daughter at bedside. He is on assist control at 24, volume 500 FiO2 55% PEEP of 8 ABG showed a pO2 of 77 pCO2 38 pH of 7.38. Patient is presently on low dose of propofol at 10 mcg/kg/m she is off norepinephrine but requiring clevidipine 9 mg per hour. His ABG was reviewed and no vent changes were made. His chest x-ray continues to show by basilar opacities consistent with minimal aspiration pneumonia. Renal functioning remains poor although the patient does have good urine output. Being followed by nephrology and again no need for hemodialysis at this point yet. Neurology-orellana the patient is awake, he is able to follow very simple instructions like closing eyes and opening eyes, wiggling toes, but cannot squeeze hands. Patient seems to be generally weak. And his mental status seems to wax and wane on a daily basis. Today I had a long discussion with the family members at bedside, and prepared the family to possibly consider tracheostomy and PEG tube placement unless the neurologist feels that the patient has a very poor quality of life and very poor neurological prognosis than family seems to be agreeable to consider comfort care measures if that is truly the case. Today I suggested that he discuss his neurological status with the neurologist and get an update as far as what he anticipates and what he expects. Objective - Vital Signs Vital signs: Vital Signs Temp 98.9 F 02/03/22 08:00 Pulse 85 02/03/22 11:00 Resp 26 H 02/03/22 11:00 BP 121/58 02/03/22 11:00 Pulse Ox 91 L 02/03/22 11:00 FiO2 55 02/03/22 11:00 Intake & Output 02/02/22 02/03/22 02/03/22 18:59 06:59 18:59 Intake Total 3844.569 1281.416 893.310 Output Total 1915 1935 1015 Balance -464.920 31.416 -121.690 Weight 97.9 kg 96.4 kg Intake: IV 92 282 160 0.9 NaCl 110 30 Piperacillin-Tazobactam 3 100 100 .375 gm In Sodium Chloride 0.9% 100 ml @ 25 mls/hr IVPB Q12HR [facility] Rx #:[id number] Sodium Chloride 0.9% 1, 20 000 ml @ 75 mls/hr IV . [id number] [facility] Rx#:[id number] pressure bag 72 72 30 Intake, IV Titration 310.080 376.416 257.310 Amount Calcium Gluconate in NaCl 100 2 gm In Saline 1 100ml. bag @ 100 mls/hr IVPB ONCE ONE Rx#:[id number] Clevidipine Butyrate 25 54.800 193.933 94.199 mg In Empty Bag 1 bag @ 1 MG/HR 2 mls/hr IV .Q24H [facility] Rx#:[id number] Piperacillin-Tazobactam 3 100 .375 gm In Sodium Chloride 0.9% 100 ml @ 25 mls/hr IVPB Q12HR [facility] Rx #:[id number] propofoL 1,000 mg In 155.280 182.483 63.111 Empty Bag 1 bag @ 5 MCG/ KG/MIN 2.654 mls/hr IV . Q24H [facility] Rx#:[id number] Tube Feeding 418 408 136 Other 630 900 340 Output: Urine 1840 1935 1015 Stool 75 Other: Voiding Method Indwelling Catheter Indwelling Catheter Indwelling Catheter ABP, PAP, CO, CI - Last Documented Arterial Blood Pressure 165/56 - Exam Physical Exam: Revealed a 61-year-old white male, intubated, mechanically ventilated, opens eyes and follows simple instructions today, mostly closing and opening eyes, and wiggling toes Head: Atraumatic, normocephalic. Endotracheal tube and orogastric tube are intact HEENT:[Neck is supple.] [No neck masses.] [No thyromegaly.] [No JVD.] Chest: [Symmetrical chest expansion, fine crackles at the bases persists. Cardiac Exam: [Normal S1 and S2, no S3 gallop, no murmur.] Abdomen: [Soft, nontender, no megaly, no rebound, no guarding, normal bowel sounds.] Extremities: [No clubbing, no edema, no cyanosis.] Neurological Exam: Awake, follows simple instructions as noted above. Psychiatric could not be assessed - Labs CBC & Chem 7: 02/03/22 04:20 02/03/22 04:20 Labs: Abnormal Lab Results - Last 24 Hours (Table) 02/02/22 02/02/22 02/02/22 Range/Units 11:23 11:47 17:40 WBC (3.8-10.6) k/uL RBC (4.30-5.90) m/uL Hct (39.0-53.0) % ABG pO2 (83-108) mmHg Carbon Dioxide (22-30) mmol/L BUN (9-20) mg/dL Creatinine (0.66-1.25) mg/dL Glucose (74-99) mg/dL POC Glucose (mg/dL) 168 H 134 H 173 H (70-110) mg/dL Calcium (8.4-10.2) mg/dL Ionized Calcium Dhruv (4.5-5.3) mg/dL AST (17-59) U/L ALT (4-49) U/L Alkaline Phosphatase (38-126) U/L Total Protein (6.3-8.2) g/dL Albumin (3.5-5.0) g/dL 02/03/22 02/03/22 02/03/22 Range/Units 00:12 04:20 04:20 WBC 33.2 H (3.8-10.6) k/uL RBC 3.88 L (4.30-5.90) m/uL Hct 38.4 L (39.0-53.0) % ABG pO2 (83-108) mmHg Carbon Dioxide 21 L (22-30) mmol/L BUN 174 H* (9-20) mg/dL Creatinine 6.59 H (0.66-1.25) mg/dL Glucose 130 H (74-99) mg/dL POC Glucose (mg/dL) 164 H (70-110) mg/dL Calcium 6.9 L (8.4-10.2) mg/dL Ionized Calcium Dhruv (4.5-5.3) mg/dL AST 338 H (17-59) U/L ALT 1131 H (4-49) U/L Alkaline Phosphatase 237 H (38-126) U/L Total Protein 4.8 L (6.3-8.2) g/dL Albumin 2.4 L (3.5-5.0) g/dL 02/03/22 02/03/22 02/03/22 Range/Units 04:20 05:48 06:12 WBC (3.8-10.6) k/uL RBC (4.30-5.90) m/uL Hct (39.0-53.0) % ABG pO2 77 L (83-108) mmHg Carbon Dioxide (22-30) mmol/L BUN (9-20) mg/dL Creatinine (0.66-1.25) mg/dL Glucose (74-99) mg/dL POC Glucose (mg/dL) 147 H (70-110) mg/dL Calcium (8.4-10.2) mg/dL Ionized Calcium Dhruv 3.9 L (4.5-5.3) mg/dL AST (17-59) U/L ALT (4-49) U/L Alkaline Phosphatase (38-126) U/L Total Protein (6.3-8.2) g/dL Albumin (3.5-5.0) g/dL 02/03/22 02/03/22 Range/Units 06:43 11:10 WBC (3.8-10.6) k/uL RBC (4.30-5.90) m/uL Hct (39.0-53.0) % ABG pO2 (83-108) mmHg Carbon Dioxide (22-30) mmol/L BUN (9-20) mg/dL Creatinine (0.66-1.25) mg/dL Glucose (74-99) mg/dL POC Glucose (mg/dL) 159 H 153 H (70-110) mg/dL Calcium (8.4-10.2) mg/dL Ionized Calcium Dhruv (4.5-5.3) mg/dL AST (17-59) U/L ALT (4-49) U/L Alkaline Phosphatase (38-126) U/L Total Protein (6.3-8.2) g/dL Albumin (3.5-5.0) g/dL Assessment and Plan Assessment: Impression: Acute hypoxic respiratory failure secondary to cardiac arrest, 01/28/22 patient has been intubated since then, not ready for any weaning at any time soon, may have to consider tracheostomy and PEG tube placement next week. Cardiac arrest with ventricular fibrillation status post cardioversion, patient is in sinus rhythm. Acute inferior wall myocardial infarction status post stenting of the PDA, patent stent in mid RCA. Paroxysmal atrial fibrillation Tobacco dependence syndrome Previous history of DVT Possible aspiration pneumonia Acute kidney injury, acute tubular necrosis Shock liver secondary to cardiac arrest Possible anoxic brain injury/encephalopathy History of underlying COPD Chronic low back pain History of colostomy and reversal Recommendation: Continue ventilatory support, no changes were made today. Continue hemodynamic support, presently patient is on clevidipine for elevated blood pressure. Off norepinephrine Continue GI and DVT prophylaxis Nutritional support/enteral feeding Continue to monitor renal and liver profile. Continue Zosyn, possible aspiration pneumonia Patient is critically ill. Today I had a long discussion with family including daughter at bedside, and family would like to hear from the neurologist regarding his neurological prognosis and anticipated neurological recovery and quality of life, based on that decision could be made regarding tracheostomy or comfort care measures. This will be decided upon in the next couple of days. Critical care time is over 30 minutes Time with Patient: Greater than 30
--- NOTE | 2022-02-03 13:12 | P.PN ---
Subjective Progress Note Date: 02/03/22 The patient is seen at bedside and he is about the same according to nurse. He continues to be on IV Propofol. ICU team is heading towards Trach. Objective - Vital Signs Vital signs: Vital Signs Temp 98.9 F 02/03/22 08:00 Pulse 98 02/03/22 12:21 Resp 26 H 02/03/22 11:00 BP 121/58 02/03/22 11:00 Pulse Ox 91 L 02/03/22 11:00 FiO2 55 02/03/22 12:03 Intake & Output 02/02/22 02/03/22 02/03/22 18:59 06:59 18:59 Intake Total 6316.175 7730.416 1293.310 Output Total 1915 1935 1165 Balance -464.920 31.416 128.310 Weight 97.9 kg 96.4 kg Intake: IV 92 282 176 0.9 NaCl 110 40 Piperacillin-Tazobactam 3 100 100 .375 gm In Sodium Chloride 0.9% 100 ml @ 25 mls/hr IVPB Q12HR [facility] Rx #:[id number] Sodium Chloride 0.9% 1, 20 000 ml @ 75 mls/hr IV . [id number] [facility] Rx#:[id number] pressure bag 72 72 36 Intake, IV Titration 310.080 376.416 307.310 Amount Calcium Gluconate in NaCl 100 2 gm In Saline 1 100ml. bag @ 100 mls/hr IVPB ONCE ONE Rx#:[id number] Clevidipine Butyrate 25 54.800 193.933 144.199 mg In Empty Bag 1 bag @ 1 MG/HR 2 mls/hr IV .Q24H [facility] Rx#:[id number] Piperacillin-Tazobactam 3 100 .375 gm In Sodium Chloride 0.9% 100 ml @ 25 mls/hr IVPB Q12HR [facility] Rx #:[id number] propofoL 1,000 mg In 155.280 182.483 63.111 Empty Bag 1 bag @ 5 MCG/ KG/MIN 2.654 mls/hr IV . Q24H [facility] Rx#:[id number] Tube Feeding 418 408 170 Other 630 900 640 Output: Urine 1840 1935 1165 Stool 75 Other: Voiding Method Indwelling Catheter Indwelling Catheter Indwelling Catheter ABP, PAP, CO, CI - Last Documented Arterial Blood Pressure 165/56 - Exam GENERAL: The patient is lying in bed and does not appear in acute distress. LUNG: Intubated on ventilator. NEUROLOGICAL: Limited: IV Propofol 25mcg/kg/min is held currently for 2 hours Higher mental function: The patient is very drowsy but is awakeable to voice. Cranial nerves: Opens his eyes to voice. No facial weakness. Is breathing over the vent. SOME OF THE WORK-UP DURING THIS HOSPITAL VISIT CONSISTED OF: Patient liver function is trending down Lipid panel is triglyceride of 136, cholesterol 121, LDL 63, HDL is 39. Ammonia level is 10. BUN is trending up and latest is 174 CT of the head is reported as no evidence of for acute subacute CVA. I personally reviewed the CT of the head and there is no acute intracranial process seen at this time. There is no bleeding. There is no mass effect and was able to appreciate that. Repeat CT head reported as loss of dodson-white matter differentiation on the left occipital lobe which could represent acute/subacute CVA. This could be compared with MRI. I personally reviewed the CT of the head and I felt was a hard to the appreciate loss of dodson-white matter differentiation on this current CT of the head over the left occipital region Most recent repeat CT head on 02/01/2022: Age-related atrophy and chronic small vessel ischemic change without acute intracranial process seen at this time. The area of decreased attenuation left occipital lobe is redemonstrated. No isaias dence for hemorrhagic transformation. Carotid duplex is reported as no hemodynamic significant stenosis of the proximal internal carotid arteries by Doppler criteria. Routine EEG is abnormal. The background slowing is suggestive of mild encephalopathy. Otherwise there is no focal slowing, epileptiform discharges or seizure on the EEG. 2-D echo was reported as technically very difficult study for interpretation. Low normal left ventricle. Function with ejection fraction of 50%. Mild ventricular and atypical hypokinesia. Left atrium was not well visualized. - Labs CBC & Chem 7: 02/03/22 04:20 02/03/22 04:20 Labs: Abnormal Lab Results - Last 24 Hours (Table) 02/02/22 02/03/22 02/03/22 Range/Units 17:40 00:12 04:20 WBC 33.2 H (3.8-10.6) k/uL RBC 3.88 L (4.30-5.90) m/uL Hct 38.4 L (39.0-53.0) % ABG pO2 (83-108) mmHg Carbon Dioxide (22-30) mmol/L BUN (9-20) mg/dL Creatinine (0.66-1.25) mg/dL Glucose (74-99) mg/dL POC Glucose (mg/dL) 173 H 164 H (70-110) mg/dL Calcium (8.4-10.2) mg/dL Ionized Calcium Dhruv (4.5-5.3) mg/dL AST (17-59) U/L ALT (4-49) U/L Alkaline Phosphatase (38-126) U/L Total Protein (6.3-8.2) g/dL Albumin (3.5-5.0) g/dL 02/03/22 02/03/22 02/03/22 Range/Units 04:20 04:20 05:48 WBC (3.8-10.6) k/uL RBC (4.30-5.90) m/uL Hct (39.0-53.0) % ABG pO2 (83-108) mmHg Carbon Dioxide 21 L (22-30) mmol/L BUN 174 H* (9-20) mg/dL Creatinine 6.59 H (0.66-1.25) mg/dL Glucose 130 H (74-99) mg/dL POC Glucose (mg/dL) 147 H (70-110) mg/dL Calcium 6.9 L (8.4-10.2) mg/dL Ionized Calcium Dhruv 3.9 L (4.5-5.3) mg/dL AST 338 H (17-59) U/L ALT 1131 H (4-49) U/L Alkaline Phosphatase 237 H (38-126) U/L Total Protein 4.8 L (6.3-8.2) g/dL Albumin 2.4 L (3.5-5.0) g/dL 02/03/22 02/03/22 02/03/22 Range/Units 06:12 06:43 11:10 WBC (3.8-10.6) k/uL RBC (4.30-5.90) m/uL Hct (39.0-53.0) % ABG pO2 77 L (83-108) mmHg Carbon Dioxide (22-30) mmol/L BUN (9-20) mg/dL Creatinine (0.66-1.25) mg/dL Glucose (74-99) mg/dL POC Glucose (mg/dL) 159 H 153 H (70-110) mg/dL Calcium (8.4-10.2) mg/dL Ionized Calcium Dhruv (4.5-5.3) mg/dL AST (17-59) U/L ALT (4-49) U/L Alkaline Phosphatase (38-126) U/L Total Protein (6.3-8.2) g/dL Albumin (3.5-5.0) g/dL Assessment and Plan Assessment: Anoxic encephalopathy due to cardiac arrest--slightly improving Has also component of metabolic and uremic encephalopathy and medication use (IV propofol) Right sided weakness is concerning for stroke: Questionable acute ischemia over left occipital but would not explain his right sided weakness. Per nursing staff yesterday he was moving right arm better while off sedation. Acute cardiac arrest out of the hospital. Unknown exact downtown. Patient was in V. fib and required epinephrine, amiodarone and CPR with 4 defibr[address] Acute inferior wall ST segment elevation DC status post cardiac cath of the PDA Hepatic shock due to cardiac arrest---trending up Acute kidney injury--trending up Proximal atrial fibrillation currently in sinus rhythm History of coronary artery disease status post stenting of the right ICA Previous TIA in 2009 Chronic gout Hepatitis A History of diverticular perforation/colostomy History of DVT Chronic back pain Plan: He is on ASA 81mg daily and Lipitor 80mg daily started by cardiology team. Q2 hour neuro checks. Will get repeat CT head and in addition CT cervical since on exam his right sided is weaker compared to left. Consider repeating 2D echo because of limitation on the initial. Nephrology team is on board. We'll defer the rest of the medical management to the cardiology primary and ICU team. ICU team is leaning toward Trach. Condition is very guarded at this time. He is making some improvement but unknown to extent of his neurological deficits at this time. The plan was discussed with the patient's daughter via phone and nurse. J Luis Vila M.D. Neuro-hospitalist Time with Patient: Less than 30
[2022-02-03 13:34] LABS: Glucose,Whole Blood 131 mg/dL (70-110)
--- NOTE | 2022-02-03 16:22 | P.PN ---
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 Pulse is 89 patient is afebrile. leukocytosis 22.1, ph 7.1. Elevated lactic acid at 5.0. Creatinine 1.2 and after discussed with the normal limits. Liver enzymes elevated 847 AST and 636 ALT Urinalysis showed 2+ protein and large blood Chest x-ray: No consolidation 02/03/2022 Patient is seen and evaluated in ICU; veins intubated and mechanically ventilated; currently on low-dose propofol; off norepinephrine but requiring clevidipine 9 mg per hour ABG was reviewed and no vent changes were made. His chest x-ray continues to show by basilar opacities consistent with minimal aspiration pneumonia. Renal functioning remains poor although the patient does have good urine output. Being followed by nephrology and again no need for hemodialysis at this point yet. Prognosis was discussed with the family members by horticulture/floriculture teacher service, and prepared the family to possibly consider tracheostomy and PEG tube placement unless the neurologist feels that the patient has a very poor quality of life and very poor neurological prognosis than family seems to be agreeable to consider comfort care measures if that is truly the case. Objective - Vital Signs Vital signs: Vital Signs Temp 98.9 F 02/03/22 08:00 Pulse 92 02/03/22 09:00 Resp 25 H 02/03/22 09:00 BP 145/64 02/03/22 09:00 Pulse Ox 97 02/03/22 09:00 FiO2 55 02/03/22 09:00 Intake & Output 02/02/22 02/03/22 02/03/22 18:59 06:59 18:59 Intake Total 8375.091 3297.416 818.377 Output Total 1915 1935 750 Balance -464.920 31.416 68.377 Weight 97.9 kg 96.4 kg Intake: IV 92 282 128 0.9 NaCl 110 10 Piperacillin-Tazobactam 3 100 100 .375 gm In Sodium Chloride 0.9% 100 ml @ 25 mls/hr IVPB Q12HR [facility] Rx #:[id number] Sodium Chloride 0.9% 1, 20 000 ml @ 75 mls/hr IV . [id number] [facility] Rx#:[id number] pressure bag 72 72 18 Intake, IV Titration 310.080 376.416 248.377 Amount Calcium Gluconate in NaCl 100 2 gm In Saline 1 100ml. bag @ 100 mls/hr IVPB ONCE ONE Rx#:[id number] Clevidipine Butyrate 25 54.800 193.933 94.199 mg In Empty Bag 1 bag @ 1 MG/HR 2 mls/hr IV .Q24H [facility] Rx#:[id number] Piperacillin-Tazobactam 3 100 .375 gm In Sodium Chloride 0.9% 100 ml @ 25 mls/hr IVPB Q12HR [facility] Rx #:[id number] propofoL 1,000 mg In 155.280 182.483 54.178 Empty Bag 1 bag @ 5 MCG/ KG/MIN 2.654 mls/hr IV . Q24H [facility] Rx#:[id number] Tube Feeding 418 408 102 Other 630 900 340 Output: Urine 0 1934 750 Stool 75 Other: Voiding Method Indwelling Catheter Indwelling Catheter Indwelling Catheter ABP, PAP, CO, CI - Last Documented Arterial Blood Pressure 158/56 - Exam -GENERAL: The patient is sedated and intubated HEENT: Pupils are round and equally reacting to light. EOMI. No scleral icterus. No conjunctival pallor. Normocephalic, atraumatic. No pharyngeal erythema. No thyromegaly. CARDIOVASCULAR: S1 and S2 present. No murmurs, rubs, or gallops. PULMONARY: Chest is clear to auscultation, no wheezing or crackles. ABDOMEN: Soft, nontender, nondistended, normoactive bowel sounds. No palpable organomegaly. MUSCULOSKELETAL: No joint swelling or deformity. EXTREMITIES: No cyanosis, clubbing, or pedal edema. NEUROLOGICAL: Gross neurological examination did not reveal any focal deficits. SKIN: No rashes. no petechiae. - Labs CBC & Chem 7: 02/03/22 04:20 02/03/22 04:20 Labs: Abnormal Lab Results - Last 24 Hours (Table) 02/02/22 02/02/22 02/02/22 Range/Units 11:23 11:47 17:40 WBC (3.8-10.6) k/uL RBC (4.30-5.90) m/uL Hct (39.0-53.0) % ABG pO2 (83-108) mmHg Carbon Dioxide (22-30) mmol/L BUN (9-20) mg/dL Creatinine (0.66-1.25) mg/dL Glucose (74-99) mg/dL POC Glucose (mg/dL) 168 H 134 H 173 H (70-110) mg/dL Calcium (8.4-10.2) mg/dL Ionized Calcium Dhruv (4.5-5.3) mg/dL AST (17-59) U/L ALT (4-49) U/L Alkaline Phosphatase (38-126) U/L Total Protein (6.3-8.2) g/dL Albumin (3.5-5.0) g/dL 02/03/22 02/03/22 02/03/22 Range/Units 00:12 04:20 04:20 WBC 33.2 H (3.8-10.6) k/uL RBC 3.88 L (4.30-5.90) m/uL Hct 38.4 L (39.0-53.0) % ABG pO2 (83-108) mmHg Carbon Dioxide 21 L (22-30) mmol/L BUN 174 H* (9-20) mg/dL Creatinine 6.59 H (0.66-1.25) mg/dL Glucose 130 H (74-99) mg/dL POC Glucose (mg/dL) 164 H (70-110) mg/dL Calcium 6.9 L (8.4-10.2) mg/dL Ionized Calcium Dhruv (4.5-5.3) mg/dL AST 338 H (17-59) U/L ALT 1131 H (4-49) U/L Alkaline Phosphatase 237 H (38-126) U/L Total Protein 4.8 L (6.3-8.2) g/dL Albumin 2.4 L (3.5-5.0) g/dL 02/03/22 02/03/22 02/03/22 Range/Units 04:20 05:48 06:12 WBC (3.8-10.6) k/uL RBC (4.30-5.90) m/uL Hct (39.0-53.0) % ABG pO2 77 L (83-108) mmHg Carbon Dioxide (22-30) mmol/L BUN (9-20) mg/dL Creatinine (0.66-1.25) mg/dL Glucose (74-99) mg/dL POC Glucose (mg/dL) 147 H (70-110) mg/dL Calcium (8.4-10.2) mg/dL Ionized Calcium Dhruv 3.9 L (4.5-5.3) mg/dL AST (17-59) U/L ALT (4-49) U/L Alkaline Phosphatase (38-126) U/L Total Protein (6.3-8.2) g/dL Albumin (3.5-5.0) g/dL 02/03/22 Range/Units 06:43 WBC (3.8-10.6) k/uL RBC (4.30-5.90) m/uL Hct (39.0-53.0) % ABG pO2 (83-108) mmHg Carbon Dioxide (22-30) mmol/L BUN (9-20) mg/dL Creatinine (0.66-1.25) mg/dL Glucose (74-99) mg/dL POC Glucose (mg/dL) 159 H (70-110) mg/dL Calcium (8.4-10.2) mg/dL Ionized Calcium Dhruv (4.5-5.3) mg/dL AST (17-59) U/L ALT (4-49) U/L Alkaline Phosphatase (38-126) U/L Total Protein (6.3-8.2) g/dL Albumin (3.5-5.0) g/dL Assessment and Plan Assessment: cardiac arrest status post CPR Inferior STEMI status post PCI to PDA Acute hypoxic respiratory failure status post intubated and mechanical ventilation Metabolic acidosis secondary to above Transaminitis secondary to above Altered mental status secondary to above, rule out anoxic brain injury History of Deep venous thrombosis on Xarelto at home Hypertension Hyperlipidemia History of GERD History of facial MRSA Plan: this is a 61 years old male presents with cardiac arrest This is a 61 years old male who presents with cardiac arrest underwent CPR. Continue with intubation and mechanical ventilation Cardiology team on the case as well as pulmonary/critical care team Continue with Zosyn Continue with IV Solu Medrol monitor creatinine and urine output and input Continue with aspirin and Plavix Other cardiac medications management deferred to cardiology team including statin, metoprolol and lisinopril small dose. Labs and medication were reviewed.. Continue same treatment. Continue with symptomatic treatment. Resume home medication. Monitor lytes and vitals. DVT and GI prophylaxis. Further recommendations as per clinical course of the patient DVT prophylaxis: Aspirin and Plavix GI Prophylaxis: Pepcid Prognosis is guarded
--- NOTE | 2022-02-03 17:32 | CT ---
EXAMINATION TYPE: CT brain cspine wo con DATE OF EXAM: 02/03/2022 COMPARISON: 02/01/2022 CT brain HISTORY: Rt side weakness, hx cardiac arrest CT DLP: 1629.6 mGycm Automated exposure control for dose reduction was used. Images of the brain and cervical spine obtained with no contrast. Ventricles have fairly normal size. There is no mass effect or midline shift. No evidence of intracra nial hemorrhage. There is mild cerebral atrophy. There is some subtle hypodensity left occipital lobe dodson and white matter that could be acute infarct. The cervical vertebra have normal spacing and alignment. Posterior elements are intact. No compressio n fracture. Facet joints are intact. Prevertebral soft tissues appear normal. There is endotracheal t ube noted. There is orogastric tube noted. IMPRESSION: There is minor spurring at C4-5. Otherwise negative CT scan of the cervical spine. No fracture. Mild atrophy. There is some subtle hypodensity left occipital lobe that could be an infarct and not c hanged compared to exam 2 days ago.
[2022-02-03 18:28] LABS: Glucose,Whole Blood 107 mg/dL (70-110)
[2022-02-03] MEDS: ATORVASTATIN 80 MG TAB PO SCH (20:53)
[2022-02-04] MEDS: CLEVIDIPINE BUTYRATE 25 MG in EMPTY BAG 1 BAG IV SCH ×10 (00:03→21:46)
[2022-02-04 00:41] LABS: Glucose,Whole Blood 129 mg/dL (70-110)
[2022-02-04] MEDS: INSULIN ASPART (NovoLOG) 100 UNIT/ML VIAL SQ SCH ×4 (00:41→17:40)
[2022-02-04] MEDS: NOREPINEPHRINE 4 MG in SODIUM CHLORIDE 0.9% 250 ML IV SCH ×2 (03:14→12:25)
[2022-02-04] MEDS: IPRATROPIUM-ALBUTEROL 3 ML NEB INHALATION SCH ×5 (03:16→20:18)
[2022-02-04 04:45] LABS: Ionized Calcium 3.8 mg/dL (4.5-5.3)
[2022-02-04 04:53] LABS: Albumin 2.4 g/dL (3.5-5.0); Calcium 6.8 mg/dL (8.4-10.2); Potassium 4.6 mmol/L (3.5-5.1); Total Bilirubin 1.1 mg/dL (0.2-1.3); Total Protein 4.9 g/dL (6.3-8.2)
[2022-02-04 05:41] LABS: HCT 40.5 % (39.0-53.0); HGB 13.8 gm/dL (13.0-17.5); MCH 33.7 pg (25.0-35.0); MCHC 34.1 g/dL (31.0-37.0); MCV 98.9 fL (80.0-100.0); Macrocytosis Slight; Mean Platelet Volume 12.4; Platelet Count 155 k/uL (150-450); RDW 14.6 % (11.5-15.5); WBC 35.1 k/uL (3.8-10.6)
[2022-02-04 05:52] LABS: ABG Base Excess -0.9 mmol/L; ABG HCO3 24 mmol/L (21-25); ABG Oxygen Saturation 97.2 % (94-97); ABG PCO2 37 mmHg (35-45); ABG PH 7.42 (7.35-7.45); ABG PO2 96 mmHg (83-108); ABG TCO2 25 mmol/L (19-24); Allen Test Performed? Yes
[2022-02-04 06:30] LABS: Glucose,Whole Blood 142 mg/dL (70-110)
--- NOTE | 2022-02-04 06:30 | XR ---
EXAMINATION TYPE: XR chest 1V portable DATE OF EXAM: 02/04/2022 CLINICAL HISTORY: Difficulty breathing and CHF progress study. TECHNIQUE: Single AP portable upright view of the chest is obtained. COMPARISON: Chest x-ray from one day earlier and older studies. FINDINGS: Stable endotracheal and orogastric tubes. 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 Persistent bibasilar opacities and small left pleural effusion. Cardiac silhouette size stable and up per limits of normal. Osseous structures are intact. IMPRESSION: Small left pleural effusion with bibasilar acute infiltrate and/or atelectasis redemonstr ated. No significant change from one day earlier.
[2022-02-04] MEDS: CALCIUM ACETATE 667 MG TAB PO SCH ×3 (06:41→19:55)
[2022-02-04] MEDS ORDERED: CALCIUM GLUCONATE IN NACL 2 GM in SALINE 1 100ML.BAG IVPB ONE (07:00)
[2022-02-04] MEDS: PIPERACILLIN-TAZOBACTAM 3.375 GM in SODIUM CHLORIDE 0.9% 100 ML IVPB SCH ×2 (08:30→20:07)
[2022-02-04] MEDS: ASPIRIN 81 MG PO SCH (08:31)
[2022-02-04] MEDS: CHLORHEXIDINE GLUCONATE 15 ML CUP MUCOUS MEM SCH ×2 (08:31→20:07)
[2022-02-04] MEDS: hydrALAZINE HCL 25 MG TAB PO SCH ×4 (08:31→21:33)
[2022-02-04] MEDS: CLOPIDOGREL 75 MG TAB PO SCH (08:31)
[2022-02-04] MEDS: FAMOTIDINE 20 MG/2 ML VIAL IV SCH (08:32)
[2022-02-04] MEDS: methylPREDNISolone SOD SUCCI 40 MG/ML 1 ML VIAL IV SCH ×2 (08:32→20:07)
[2022-02-04] MEDS: METOPROLOL TARTRATE 25 MG TAB PO SCH (08:32)
--- NOTE | 2022-02-04 10:14 | P.PN ---
Subjective Patient is seen in follow for acute kidney injury. Creatinine trending down. BUN up to 184. IV Lasix as well as steroids were discontinued yesterday. Nonoliguric. Remains intubated. On 50% FiO2. Receiving tube feeds. On Cleviprex. Vital signs are stable. HEENT: Intubated. LUNGS: Breath sounds decreased. HEART: Rate and Rhythm are regular. ABDOMEN: Soft, no distention. EXTREMITITES: Trace edema. Objective - Vital Signs Vital signs: Vital Signs Temp 98.0 F 02/04/22 08:00 Pulse 90 02/04/22 10:00 Resp 46 H 02/04/22 10:00 BP 117/82 02/04/22 10:00 Pulse Ox 99 02/04/22 10:00 FiO2 50 02/04/22 10:00 Intake & Output 02/03/22 02/04/22 02/04/22 18:59 06:59 18:59 Intake Total 3089.313 7106.0 266 Output Total 2865 2025 525 Balance -1173.690 -91.0 -259 Weight 96.8 kg Intake: IV 272 292 48 0.9 NaCl 100 120 30 Piperacillin-Tazobactam 3 100 100 .375 gm In Sodium Chloride 0.9% 100 ml @ 25 mls/hr IVPB Q12HR [facility] Rx #:[id number] pressure bag 72 72 18 Intake, IV Titration 507.310 300.0 150 Amount Calcium Gluconate in NaCl 100 2 gm In Saline 1 100ml. bag @ 100 mls/hr IVPB ONCE ONE Rx#:[id number] Calcium Gluconate in NaCl 100 2 gm In Saline 1 100ml. bag @ 100 mls/hr IVPB ONCE ONE Rx#:[id number] Clevidipine Butyrate 25 244.199 200.0 50 mg In Empty Bag 1 bag @ 1 MG/HR 2 mls/hr IV .Q24H [facility] Rx#:[id number] propofoL 1,000 mg In 163.111 100 Empty Bag 1 bag @ 5 MCG/ KG/MIN 2.654 mls/hr IV . Q24H [facility] Rx#:[id number] Tube Feeding 272 442 68 Other 640 900 Output: Urine 5 5 525 Stool 600 Other: Voiding Method Indwelling Catheter Indwelling Catheter ABP, PAP, CO, CI - Last Documented Arterial Blood Pressure 155/52 - Labs CBC & Chem 7: 02/04/22 04:25 02/04/22 04:25 Labs: Abnormal Lab Results - Last 24 Hours (Table) 02/03/22 02/03/22 02/04/22 Range/Units 11:10 13:33 00:39 WBC (3.8-10.6) k/uL RBC (4.30-5.90) m/uL ABG Total CO2 (19-24) mmol/L ABG O2 Saturation (94-97) % BUN (9-20) mg/dL Creatinine (0.66-1.25) mg/dL Glucose (74-99) mg/dL POC Glucose (mg/dL) 153 H 131 H 129 H (70-110) mg/dL Calcium (8.4-10.2) mg/dL Ionized Calcium Dhruv (4.5-5.3) mg/dL AST (17-59) U/L ALT (4-49) U/L Alkaline Phosphatase (38-126) U/L Total Protein (6.3-8.2) g/dL Albumin (3.5-5.0) g/dL 02/04/22 02/04/22 02/04/22 Range/Units 04:25 04:25 05:49 WBC 35.1 H (3.8-10.6) k/uL RBC 4.10 L (4.30-5.90) m/uL ABG Total CO2 25 H (19-24) mmol/L ABG O2 Saturation 97.2 H (94-97) % BUN 184 H* (9-20) mg/dL Creatinine 6.22 H (0.66-1.25) mg/dL Glucose 146 H (74-99) mg/dL POC Glucose (mg/dL) (70-110) mg/dL Calcium 6.8 L (8.4-10.2) mg/dL Ionized Calcium Dhruv 3.8 L (4.5-5.3) mg/dL AST 243 H (17-59) U/L ALT 698 H (4-49) U/L Alkaline Phosphatase 227 H (38-126) U/L Total Protein 4.9 L (6.3-8.2) g/dL Albumin 2.4 L (3.5-5.0) g/dL 02/04/22 Range/Units 06:28 WBC (3.8-10.6) k/uL RBC (4.30-5.90) m/uL ABG Total CO2 (19-24) mmol/L ABG O2 Saturation (94-97) % BUN (9-20) mg/dL Creatinine (0.66-1.25) mg/dL Glucose (74-99) mg/dL POC Glucose (mg/dL) 142 H (70-110) mg/dL Calcium (8.4-10.2) mg/dL Ionized Calcium Dhruv (4.5-5.3) mg/dL AST (17-59) U/L ALT (4-49) U/L Alkaline Phosphatase (38-126) U/L Total Protein (6.3-8.2) g/dL Albumin (3.5-5.0) g/dL Microbiology - Last 24 Hours (Table) 02/03/22 12:20 Sputum Culture - Preliminary Sputum Assessment and Plan Plan: Assessment: 1. Acute kidney injury secondary to ATN secondary to cardiac arrest. Baseline creatinine near 1 and peaked at 6.69 this admission -6.22 today. Elevated BUN due to acute kidney injury, hypercatabolic state, Lasix and steroids. No evidence of GI bleed. Nonoliguric. Urine output 100-200 mL an hour. No hydronephrosis noted on kidney ultrasound. 2. Status post V. fib arrest on 02/24/2022. 3. Coronary disease status post right PDA stenting on 02/24/2022. 4. Shock liver. 5. Fever. Questionable aspiration pneumonia. On antibiotics. 6. Anoxic brain injury. Improving. Neurology following. 7. Metabolic acidosis secondary to acute kidney injury, IV fluids and lactic acidosis. Improved. 8. Hypocalcemia secondary to acute kidney injury. Being replaced. 9. Hyperphosphatemia secondary to acute kidney injury. On PhosLo. 10. Volume overload. Improved with diuresis. 11. Hypernatremia from lack of oral water intake. Stable. Plan: Maintain tube feeds with water flushes. Lasix and steroids discontinued 02/03/2022. Calcium being replaced. Continue to assess need for renal placement therapy. No urgency at this time. Ejection fraction 50%. Wean FiO2.
[2022-02-04 12:14] LABS: Glucose,Whole Blood 143 mg/dL (70-110)
--- NOTE | 2022-02-04 12:36 | P.PN ---
Subjective Progress Note Date: 02/04/22 Principal diagnosis: Cardiac arrest and acute hypoxic respiratory failure 61-year-old male patient was brought into the hospital after he sustained a cardiac arrest at home. The patient apparently was in V. fib arrest. His have coronary artery disease. The patient also is known to have paroxysmal atrial fibrillation. Family found the patient collapsed on the floor and EMS arrived within 3 minutes after the call. The patient was found to be unresponsive. His breathing was agonal. He had no pulse. He was in V. fib. He required 4 attempts of atrial fibrillation. He was given epinephrine 4 rounds a total of 4 mg and he was also given amiodarone. He was brought into the emergency and initial blood pressure was 186/129. The patient's EKG showed ST segment elevat ion inferior wall myocardial infarction along with underlying atrial fibrillation. The patient was taken for immediate cardiac catheterization and the patient was found to have significant disease in the right PDA, patent stent in the mid RCA, mild disease in the left circumflex and RCA, successful stenting of the right PDA was done without any issues. The patient's LAD and left main had some minimal disease without any high-grade stenosis. The PDA had 80-85% lesion and appropriate stenting was done. The patient was started on aspirin and Plavix. The patient was kept intubated on was brought into the intensive care unit. This morning, the patient is sedated and he is on propofol at the rate of 25 mcg/kg per minute and is adequately sedated without any issues. He is quite successful mechanical ventilator. He is currently on assist control mode at the rate of 24 with a tidal volume of 500 and FiO2 of 50% with a PEEP of 5. His cardiac rhythm is sinus at this point in time. His chest x-ray is showing adequate expansion for both lungs. ET tube is in a good location. No airspace disease or pulmonary infiltrates. There is some mild cardiomegaly noted on the chest x-ray. The patient's blood gases initially showed a pH of 7.17 with a pCO2 of 40 and pO2 of 96 and the follow-up blood gases to be done this morning. Hemodynamically, he is stable on no pressors. His blood work showed a troponin of 1.5 max atelectatic acid level initially was at 5.0 dropped down to 3.4. Ser um bicarb was at 14. BUN is at 19 with a creatinine of 1.2 and the sodium is at 140. White cell count 22.1 with a hemoglobin of 17.6. Current temperature is 90.6F. The patient is currently on aspirin and Plavix. The patient is also on metoprolol at a dose of 25 mg by mouth twice a day. He is also on Zestril 2.5 mg by mouth daily for blood pressure control and he is also on high-dose statins . Noted the patient was taken Xarelto on outpatient basis which I'm assuming given to him for paroxysmal atrial fibrillation. CAT scan of the brain has not been done yet. No seizure activity has been noted. On 01/29/2022, seeing the patient for a follow-up. The patient is post V. fib arrest. The patient remains sedated on propofol and the patient remains unresponsive. No seizure activity has been noted. The patient is currently off her before running at 45 mcg/kg per minute. Were unable to do sedation holiday as the patient remains quite unstable at this point in time. On today's dom luation, the patient remains on propofol. The patient remains on a mechanical ventilator on assist control mode at the rate of 24 with a tidal volume of 500 a FiO2 of 60% with a PEEP of 5. The patient's blood gas showed a pH of 7.09 with a pCO2 of 35 and a pO2 of 96. Chest x-ray shows no evidence of any pneumonia and ET tube is in a good location. The patient spiked a temperature 100.5. This could be a central fever. Aspiration cannot be ruled out and the patient will be started on IV Zosyn. Furthermore, the patient was having issues with an elevated lactic acid level yesterday. Lactic acid level was as high as 6. The patient was given a total of 2 L of IV fluids. Based on the underlying non- anion gap Metabolic acidosis, the patient was started on a bicarb infusion after being given a total of 5 mEq IV push. Note that the morning blood work shows a sodium of 142 with a potassium of 5.8, serum bicarb is at 11 with a chloride of 122. The BUN is at 33 with a creatinine of 2.1. The patient has a urine output of around 20 mL an hour of urine output has dropped and the patient has sustained an acute kidney injury. Norepinephrine infusion is off. The patient has developed also a shock liver with an AST of 2033 and an ALT of 2976. Condition remains extremely critical at this point in time. Reevaluated today on 01/30/2022, patient remains in the ICU, intubated and mechani parminder ventilated. He is on assist control rate of 24th of volume 500 FiO2 50% and PEEP of 5. ABG earlier on 60% FiO2 showed a pO2 of 130 pCO2 37 pH of 7.40 and sodium bicarb was discontinued. Patient is on propofol at 20 mcg/kg/m he is also on norepinephrine at 0.02 mcg/kg/m IV fluid at 100 mL per hour, CVP is around 7. Chest x-ray is showing evidence of interstitial edema/infiltrates, however his CVP is 7 and I'm recommending that we continue IV fluids. Patient remains sedated, apparently he had metabolic encephalopathy secondary to his cardiac arrest, patient is status post stent placement to the PDA. EEG showed encephalopathy but no evidence of seizures. WBC count is 8 hemoglobin is 13.8 electrolytes are normal renal profile showed a BUN of 59 and creatinine 3.77, worsening since admission. RTC the patient developed acute kidney injury. Reevaluated today on 01/31/22, patient remains in the ICU, intubated and mechanically ventilated. Patient is drowsy but following simple instructions. He is generally weak. He is on assist control rate of 24th volume 500 FiO2 50% and PEEP of 5 ABG showed a pO2 of 78 pCO2 36 pH of 7.37 he is presently off propofol to be evaluated by neurology while off propofol. Patient opens eyes to voice, however he is extremely weak able to wiggle toes at times. But could not squeeze my hands. Patient is now off norepinephrine and off all drips. WBC count is 9.1 hemoglobin 13.1 platelets are 110. Electrolytes are normal however his bicarb is 19 normal anion gap. BUN is 82 creatinine 5.16, steadily rising, and the patient is being followed by nephrology, be considered for possible hemodialysis, however considering the patient has decent urine output in the range of 25-50 mL/h, no immediate plans to dialyze the patient at this point Patient was reevaluated today on 02/01/22, patient remains on the ICU, intubated mechanically ventilated, he is on assist control rate of 24th of volume 500 FiO2 50% and PEEP of 5. ABG showed a pO2 of 60 pCO2 35 pH of 7.40, hence I increased the PEEP up to 8 incentive PEEP of 5. Patient remains on propofol at 15 mcg/kg/m, being titrated down in order to assess his mental status today, he is off norepinephrine remains on IV fluid at KVO. Patient opens his eyes, but does not follow any other instructions. He does not seem to be in any distress, does not squeeze hands, does not wiggle toes, does not close eyes when asked to. Chest x-ray showed mostly pulmonary venous hypertension and interstitial edema with bibasilar effusions and atelectasis, strongly doubt pneumonia. Carotid Doppler report today is basically unremarkable. No significant stenosis noted in the proximal internal carotid arteries. Patient continues to have anoxic encephalopathy due to cardiac arrest, not much improvement noted since yesterday. Patient is basically about the same. Again he opens his eyes but does not follow any instructions whatsoever. WBC count is elevated at 15.3 hemoglobin 12.7 in x-ray summary normal renal profile however is worse with a BUN of 111 creatinine 6.15 and that being addressed by nephrology not planning any hemodialysis as the patient is maintaining good urine output all along more Lasix was given today by nephrology Reevaluated today on 02/02/22, patient remains in the ICU, intubated and mechanically ventilated. Not much is happening compared to the last few days, patient is basically about the same. Patient is intubated mechanically ventilated, he is on assist control rate of 24 volume 500 FiO2 55% PEEP of 8 ABG showed a pO2 of 70 pCO2 36 pH of 7.41. Recent CT of the brain showed left occipital infarct. Patient remains on clevidipine 6 mg per hour remains on pro pofol at 25 mcg/kg/m he is on vital HVS 54 mL/h patient is also on Zosyn and Lasix 80 mg daily. Patient is receiving free water flushes 300 mL every 4 hours. Neurologically the patient is about the same, opens eyes, but does not follow any instructions to verbal stimuli. Chest x-ray continues show bilateral infiltrates, opacities. WBC count is 29.9 hemoglobin is 11.8 basic metabolic profile continues to show hyponatremia with a sodium of 147 renal profile remains poor with BUN of 145 creatinine 6.69. Nonetheless the patient continues to have fairly good urine output. Liver enzymes are improving ALT is down to 166 AST 470 and alkaline phosphatase is 190 Reevaluated today on 02/03/2022, patient remains in the ICU, intubated and mechanically ventilated. Family members including his daughter at bedside. He is on assist control at 24, volume 500 FiO2 55% PEEP of 8 ABG showed a pO2 of 77 pCO2 38 pH of 7.38. Patient is presently on low dose of propofol at 10 mcg/kg/m she is off norepinephrine but requiring clevidipine 9 mg per hour. His ABG was reviewed and no vent changes were made. His chest x-ray continues to show by basilar opacities consistent with minimal aspiration pneumonia. Renal functioning remains poor although the patient does have good urine output. Being followed by nephrology and again no need for hemodialysis at this point yet. Neurology-orellana the patient is awake, he is able to follow very simple instructions like closing eyes and opening eyes, wiggling toes, but cannot squeeze hands. Patient seems to be generally weak. And his mental status seems to wax and wane on a daily basis. Today I had a long discussion with the family members at bedside, and prepared the family to possibly consider tracheostomy and PEG tube placement unless the neurologist feels that the patient has a very poor quality of life and very poor neurological prognosis than family seems to be agreeable to consider comfort care measures if that is truly the case. Today I suggested that he discuss his neurological status with the neurologist and get an update as far as what he anticipates and what he expects. Reevaluated today on 02/04/2022, patient is basically about the same. Remains intubated and mechanically ventilated. Remains on assist control rate of 24th of volume 500 FiO2 55% PEEP of 8 and I cut down his FiO2 down to 50%. His ABG showed a pO2 of 96 pCO2 37 pH of 7.42. Patient is now on propofol at 25 mcg/kg/m she is also on clevidipine at 10 mg per hour and IV fluid at KVO. He is receiving vital H3 at 34 mL per hour. Patient again is arousable, opens his eyes, but today he is not following any instructions. However the propofol is being decreased further down to fully assess mental status, today he seems to be a bit worse compared to yesterday. Chest x-ray showing improvement in his by basilar infiltrates nonetheless he remains on Zosyn. Apparently the neurologist discussed his condition with the family, and in his note stating that it is not clear and unable to predict the quality of life considering his anoxic brain injury and encephalopathy. Family is willing to consider comfort care measures if the neurologist believes that the quality of life is poor otherwise family is also willing to proceed with tracheostomy and PEG tube feeding if felt that his prognosis is good. I feel that the patient has very poor prognosis and very poor quality of life considering his overall picture Objective - Vital Signs Vital signs: Vital Signs Temp 98.0 F 02/04/22 08:00 Pulse 94 02/04/22 11:35 Resp 20 02/04/22 11:30 BP 123/75 02/04/22 11:30 Pulse Ox 100 02/04/22 11:30 FiO2 50 02/04/22 11:30 Intake & Output 02/03/22 02/04/22 02/04/22 18:59 06:59 18:59 Intake Total 9503.640 0408.0 376 Output Total 2865 2025 845 Balance -1173.690 -91.0 -469 Weight 96.8 kg Intake: IV 272 292 80 0.9 NaCl 100 120 50 Piperacillin-Tazobactam 3 100 100 .375 gm In Sodium Chloride 0.9% 100 ml @ 25 mls/hr IVPB Q12HR PENDING SALE TO [facility] Rx #:[id number] pressure bag 72 72 30 Intake, IV Titration 507.310 300.0 228 Amount Calcium Gluconate in NaCl 100 2 gm In Saline 1 100ml. bag @ 100 mls/hr IVPB ONCE ONE Rx#:[id number] Calcium Gluconate in NaCl 100 2 gm In Saline 1 100ml. bag @ 100 mls/hr IVPB ONCE ONE Rx#:[id number] Clevidipine Butyrate 25 244.199 200.0 128 mg In Empty Bag 1 bag @ 1 MG/HR 2 mls/hr IV .Q24H [facility] Rx#:[id number] propofoL 1,000 mg In 163.111 100 Empty Bag 1 bag @ 5 MCG/ KG/MIN 2.654 mls/hr IV . Q24H PENDING SALE TO [facility] Rx#:[id number] Tube Feeding 272 442 68 Other 640 900 Output: Urine 2265 2025 845 Stool 600 Other: Voiding Method Indwelling Catheter Indwelling Catheter Indwelling Catheter ABP, PAP, CO, CI - Last Documented Arterial Blood Pressure 159/51 - Exam Physical Exam: Revealed a 61-year-old white male, intubated, mechanically ventilated, opens eyes , does not follow any instructions today Head: Atraumatic, normocephalic. Endotracheal tube and orogastric tube are intact HEENT:[Neck is supple.] [No neck masses.] [No thyromegaly.] [No JVD.] Chest: [Symmetrical chest expansion, fine crackles at the bases persists. Cardiac Exam: [Normal S1 and S2, no S3 gallop, no murmur.] Abdomen: [Soft, nontender, no megaly, no rebound, no guarding, normal bowel sounds.] Extremities: [No clubbing, no edema, no cyanosis.] Neurological Exam: Opens eyes to verbal stimuli or painful stimuli, but does not follow any instructions Psychiatric could not be assessed - Labs CBC & Chem 7: 02/04/22 04:25 02/04/22 04:25 Labs: Abnormal Lab Results - Last 24 Hours (Table) 02/03/22 02/04/22 02/04/22 Range/Units 13:33 00:39 04:25 WBC 35.1 H (3.8-10.6) k/uL RBC 4.10 L (4.30-5.90) m/uL ABG Total CO2 (19-24) mmol/L ABG O2 Saturation (94-97) % BUN (9-20) mg/dL Creatinine (0.66-1.25) mg/dL Glucose (74-99) mg/dL POC Glucose (mg/dL) 131 H 129 H (70-110) mg/dL Calcium (8.4-10.2) mg/dL Ionized Calcium Dhruv (4.5-5.3) mg/dL AST (17-59) U/L ALT (4-49) U/L Alkaline Phosphatase (38-126) U/L Total Protein (6.3-8.2) g/dL Albumin (3.5-5.0) g/dL 02/04/22 02/04/22 02/04/22 Range/Units 04:25 05:49 06:28 WBC (3.8-10.6) k/uL RBC (4.30-5.90) m/uL ABG Total CO2 25 H (19-24) mmol/L ABG O2 Saturation 97.2 H (94-97) % BUN 184 H* (9-20) mg/dL Creatinine 6.22 H (0.66-1.25) mg/dL Glucose 146 H (74-99) mg/dL POC Glucose (mg/dL) 142 H (70-110) mg/dL Calcium 6.8 L (8.4-10.2) mg/dL Ionized Calcium Dhruv 3.8 L (4.5-5.3) mg/dL AST 243 H (17-59) U/L ALT 698 H (4-49) U/L Alkaline Phosphatase 227 H (38-126) U/L Total Protein 4.9 L (6.3-8.2) g/dL Albumin 2.4 L (3.5-5.0) g/dL 02/04/22 Range/Units 12:12 WBC (3.8-10.6) k/uL RBC (4.30-5.90) m/uL ABG Total CO2 (19-24) mmol/L ABG O2 Saturation (94-97) % BUN (9-20) mg/dL Creatinine (0.66-1.25) mg/dL Glucose (74-99) mg/dL POC Glucose (mg/dL) 143 H (70-110) mg/dL Calcium (8.4-10.2) mg/dL Ionized Calcium Dhruv (4.5-5.3) mg/dL AST (17-59) U/L ALT (4-49) U/L Alkaline Phosphatase (38-126) U/L Total Protein (6.3-8.2) g/dL Albumin (3.5-5.0) g/dL Microbiology - Last 24 Hours (Table) 02/03/22 12:20 Sputum Culture - Preliminary Sputum Assessment and Plan Assessment: Impression: Acute hypoxic respiratory failure secondary to cardiac arrest, 01/28/22 patient has been intubated since then, not ready for any weaning at any time soon, may have to consider tracheostomy and PEG tube placement next week. Cardiac arrest with ventricular fibrillation status post cardioversion, patient is in sinus rhythm. Acute inferior wall myocardial infarction status post stenting of the PDA, patent stent in mid RCA. Paroxysmal atrial fibrillation Tobacco dependence syndrome Previous history of DVT Possible aspiration pneumonia Acute kidney injury, acute tubular necrosis Shock liver secondary to cardiac arrest Possible anoxic brain injury/encephalopathy History of underlying COPD Chronic low back pain History of colostomy and reversal Recommendation: Continue ventilatory support, no changes were made today. Control blood pressure presently patient is on clevidipine for elevated blood pressure. Continue GI and DVT prophylaxis Nutritional support/enteral feeding Continue to monitor renal and liver profile. Continue Zosyn, possible aspiration pneumonia Patient is critically ill. I believe the prognosis is very poor and the quality of life is very poor Family would like to wait and discuss this further with the neurologist, and based on the input from the neurologist may have to consider either comfort care or proceed with tracheostomy and PEG tube placement early next week Critical care time is over 30 minutes Time with Patient: Greater than 30
--- NOTE | 2022-02-04 14:37 | P.PN ---
Subjective Progress Note Date: 02/04/22 The patient is seen at bedside and per nurse his condition has not changes. He continues to be intubated on vent and is on IV Propofol. Objective - Vital Signs Vital signs: Vital Signs Temp 98.3 F 02/04/22 12:00 Pulse 96 02/04/22 14:00 Resp 32 H 02/04/22 14:00 BP 134/78 02/04/22 14:00 Pulse Ox 97 02/04/22 14:00 FiO2 55 02/04/22 12:00 Intake & Output 02/03/22 02/04/22 02/04/22 18:59 06:59 18:59 Intake Total 9174.534 2937.0 477.6 Output Total 2865 2025 1270 Balance -1173.690 -91.0 -792.4 Weight 96.8 kg Intake: IV 272 292 128 0.9 NaCl 100 120 80 Piperacillin-Tazobactam 3 100 100 .375 gm In Sodium Chloride 0.9% 100 ml @ 25 mls/hr IVPB Q12HR [facility] Rx #:[id number] pressure bag 72 72 48 Intake, IV Titration 507.310 300.0 247.6 Amount Calcium Gluconate in NaCl 100 2 gm In Saline 1 100ml. bag @ 100 mls/hr IVPB ONCE ONE Rx#:[id number] Calcium Gluconate in NaCl 100 2 gm In Saline 1 100ml. bag @ 100 mls/hr IVPB ONCE ONE Rx#:[id number] Clevidipine Butyrate 25 244.199 200.0 147.6 mg In Empty Bag 1 bag @ 1 MG/HR 2 mls/hr IV .Q24H [facility] Rx#:[id number] propofoL 1,000 mg In 163.111 100 Empty Bag 1 bag @ 5 MCG/ KG/MIN 2.654 mls/hr IV . Q24H [facility] Rx#:[id number] Tube Feeding 272 442 102 Other 640 900 Output: Urine 2265 2025 1270 Stool 600 Other: Voiding Method Indwelling Catheter Indwelling Catheter Indwelling Catheter ABP, PAP, CO, CI - Last Documented Arterial Blood Pressure 167/55 - Exam GENERAL: The patient is lying in bed and does not appear in acute distress. LUNG: Intubated on ventilator. NEUROLOGICAL: Limited: IV Propofol 15mcg/kg/min is held for couple minutes prior to examining him. Higher mental function: The patient is very drowsy but is awakeable to voice minimally. Not follwing commands. Cranial nerves: Opens his eyes to voice. No facial weakness. Is breathing over the vent. Motor: Strength: Is hard to assess because of his condition. SOME OF THE WORK-UP DURING THIS HOSPITAL VISIT CONSISTED OF: Patient liver function is trending down Lipid panel is triglyceride of 136, cholesterol 121, LDL 63, HDL is 39. Ammonia level is 10. BUN is trending up and latest is 174 CT of the head is reported as no evidence of for acute subacute CVA. I personally reviewed the CT of the head and there is no acute intracranial process seen at this time. There is no bleeding. There is no mass effect and was able to appreciate that. Repeat CT head reported as loss of dodson-white matter differentiation on the left occipital lobe which could represent acute/subacute CVA. This could be compared with MRI. I personally reviewed the CT of the head and I felt was a hard to the appreciate loss of dodson-white matter differentiation on this current CT of the head over the left occipital region Most recent repeat CT head on 02/01/2022: Age-related atrophy and chronic small vessel ischemic change without acute intracranial process seen at this time. The area of decreased attenuation left occipital lobe is redemonstrated. No evidence for hemorrhagic transformation. CT of the head is reported as in mild atrophy. There is some subtle hypodensity in the left occipital that can be infarct or and not change compared to old exam 2 days ago. I agree with the report. CT cervical was there is minor spurring at C4-C5. Otherwise negative CT scan of the cervical spine. No fracture. Carotid duplex is reported as no hemodynamic significant stenosis of the proximal internal carotid arteries by Doppler criteria. Routine EEG is abnormal. The background slowing is suggestive of mild encephalopathy. Otherwise there is no focal slowing, epileptiform discharges or seizure on the EEG. 2-D echo was reported as technically very difficult study for interpretation. Low normal left ventricle. Function with ejection fraction of 50%. Mild ventricular and atypical hypokinesia. Left atrium was not well visualized. - Labs CBC & Chem 7: 02/04/22 04:25 02/04/22 04:25 Labs: Abnormal Lab Results - Last 24 Hours (Table) 07/10/22 07/10/22 07/10/22 Range/Units 00:39 04:25 04:25 WBC 35.1 H (3.8-10.6) k/uL RBC 4.10 L (4.30-5.90) m/uL ABG Total CO2 (19-24) mmol/L ABG O2 Saturation (94-97) % BUN 184 H* (9-20) mg/dL Creatinine 6.22 H (0.66-1.25) mg/dL Glucose 146 H (74-99) mg/dL POC Glucose (mg/dL) 129 H (70-110) mg/dL Calcium 6.8 L (8.4-10.2) mg/dL Ionized Calcium Dhruv 3.8 L (4.5-5.3) mg/dL AST 243 H (17-59) U/L ALT 698 H (4-49) U/L Alkaline Phosphatase 227 H (38-126) U/L Total Protein 4.9 L (6.3-8.2) g/dL Albumin 2.4 L (3.5-5.0) g/dL 02/04/22 02/04/22 02/04/22 Range/Units 05:49 06:28 12:12 WBC (3.8-10.6) k/uL RBC (4.30-5.90) m/uL ABG Total CO2 25 H (19-24) mmol/L ABG O2 Saturation 97.2 H (94-97) % BUN (9-20) mg/dL Creatinine (0.66-1.25) mg/dL Glucose (74-99) mg/dL POC Glucose (mg/dL) 142 H 143 H (70-110) mg/dL Calcium (8.4-10.2) mg/dL Ionized Calcium Dhruv (4.5-5.3) mg/dL AST (17-59) U/L ALT (4-49) U/L Alkaline Phosphatase (38-126) U/L Total Protein (6.3-8.2) g/dL Albumin (3.5-5.0) g/dL Microbiology - Last 24 Hours (Table) 02/03/22 12:20 Gram Stain - Preliminary Sputum Sputum Culture - Preliminary Assessment and Plan Assessment: Anoxic encephalopathy due to cardiac arrest--slightly improving Has also component of metabolic and uremic encephalopathy and medication use (IV propofol) Right sided weakness is concerning for stroke: Questionable acute ischemia over left occipital but would not explain his right sided weakness. Neurological examination is limited because of encephalopathy. Acute cardiac arrest out of the hospital. Unknown exact downtown. Patient was in V. fib and required epinephrine, amiodarone and CPR with 4 defibr[address] Acute inferior wall ST segment elevation AR status post cardiac cath of the PDA Hepatic shock due to cardiac arrest---trending up Acute kidney injury--trending up Proximal atrial fibrillation currently in sinus rhythm History of coronary artery disease status post stenting of the right ICA Previous TIA in 2009 Chronic gout Hepatitis A History of diverticular perforation/colostomy History of DVT Chronic back pain Plan: He is on ASA 81mg daily and Lipitor 80mg daily started by cardiology team. Q2 hour neuro checks. Consider repeating 2D echo because of limitation on the initial. Nephrology team is on board. We'll defer the rest of the medical management to the cardiology primary and ICU team. ICU team is leaning toward Trach. Condition is very guarded at this time. He is making some improvement but unknown to extent of his neurological deficits at this time. Hopefully while off sedation for at least 24-48 hours, will have a better neurological examination. The plan was discussed with the patient's nurse. Dr. Estrada will start neurology service tomorrow AM. J Luis Vila M.D. Neuro-hospitalist Time with Patient: Less than 30
--- NOTE | 2022-02-04 15:10 | P.PN ---
Subjective Progress Note Date: 02/04/22 Principal diagnosis: Cardiac arrest status post CPR Inferior STEMI status post PCI to PDA Acute hypoxic respiratory failure status post intubated and mechanical ventilation Metabolic acidosis secondary to above Transaminitis secondary to above 61 years old female with past medical history of COPD, Deep Vein Thrombosis (DVT), GERD/Reflux, Hyperlipidemia, HypertensionOsteoarthritis , coronary artery disease status post stent info obtained from chart and staff witnessed arrest, cardiac arrest, shocked x2 and 4 EPIs given STUNT DOUBLE, pulses returned upon arrival to ER room, on admission found to have inferior ST elevation He underwent emergent cardiac cath showing significant disease of the right PDA, status post stents but patent stent in RCA Blood pressure 123/84 Saturating 97%. Pulse is 89 patient is afebrile. leukocytosis 22.1, ph 7.1. Elevated lactic acid at 5.0. Creatinine 1.2 and after discussed with the normal limits. Liver enzymes elevated 847 AST and 636 ALT Urinalysis showed 2+ protein and large blood Chest x-ray: No consolidation 02/03/2022 Patient is seen and evaluated in ICU; veins intubated and mechanically ventilated; currently on low-dose propofol; off norepinephrine but requiring clevidipine 9 mg per hour ABG was reviewed and no vent changes were made. His chest x-ray continues to show by basilar opacities consistent with minimal aspiration pneumonia. Renal functioning remains poor although the patient does have good urine output. Being followed by nephrology and again no need for hemodialysis at this point yet. Prognosis was discussed with the family members by body former service, and prepared the family to possibly consider tracheostomy and PEG tube placement unless the neurologist feels that the patient has a very poor quality of life and very poor neurological prognosis than family seems to be agreeable to consider comfort care measures if that is truly the case. 02/04/2022 Patient seen and evaluated in ICU; remains intubated and mechanically ventilated. Currently on assist control rate of 24th of volume 500 FiO2 55% PEEP of 8 and I cut down his FiO2 down to 50%; ABG showed a pO2 of 96 pCO2 37 pH of 7.42. Patient is now on propofol and clevidipine at 10 mg per hour. -- Patient is arousable, opens his eyes, but today he is not following any instructions. --Chest x-ray showing improvement in his by basilar infiltrates nonetheless he remains on Zosyn. According to body former records family is prepared to consider comfort care measures if the neurologist believes that the quality of life is poor otherwise family is also willing to proceed with tracheostomy and PEG tube feeding if felt that his prognosis is good. Patient has very poor prognosis and very poor quality of life considering his overall picture Objective - Vital Signs Vital signs: Vital Signs Temp 98.4 F 02/04/22 04:00 Pulse 102 H 02/04/22 07:48 Resp 46 H 02/04/22 07:00 BP 127/77 02/04/22 07:00 Pulse Ox 99 02/04/22 07:00 FiO2 55 02/04/22 07:28 Intake & Output 02/03/22 02/04/22 02/04/22 18:59 06:59 18:59 Intake Total 9754.095 9654.0 200 Output Total 2865 2025 175 Balance -1173.690 -91.0 25 Weight 96.8 kg Intake: IV 272 292 16 0.9 NaCl 100 120 10 Piperacillin-Tazobactam 3 100 100 .375 gm In Sodium Chloride 0.9% 100 ml @ 25 mls/hr IVPB Q12HR [facility] Rx #:[id number] pressure bag 72 72 6 Intake, IV Titration 507.310 300.0 150 Amount Calcium Gluconate in NaCl 100 2 gm In Saline 1 100ml. bag @ 100 mls/hr IVPB ONCE ONE Rx#:[id number] Calcium Gluconate in NaCl 100 2 gm In Saline 1 100ml. bag @ 100 mls/hr IVPB ONCE ONE Rx#:[id number] Clevidipine Butyrate 25 244.199 200.0 50 mg In Empty Bag 1 bag @ 1 MG/HR 2 mls/hr IV .Q24H [facility] Rx#:[id number] propofoL 1,000 mg In 163.111 100 Empty Bag 1 bag @ 5 MCG/ KG/MIN 2.654 mls/hr IV . Q24H [facility] Rx#:[id number] Tube Feeding 272 442 34 Other 640 900 Output: Urine 2265 2025 175 Stool 600 Other: Voiding Method Indwelling Catheter Indwelling Catheter ABP, PAP, CO, CI - Last Documented Arterial Blood Pressure 158/57 - Exam -GENERAL: The patient is sedated and intubated HEENT: Pupils are round and equally reacting to light. EOMI. No scleral icterus. No conjunctival pallor. Normocephalic, atraumatic. No pharyngeal erythema. No thyromegaly. CARDIOVASCULAR: S1 and S2 present. No murmurs, rubs, or gallops. PULMONARY: Chest is clear to auscultation, no wheezing or crackles. ABDOMEN: Soft, nontender, nondistended, normoactive bowel sounds. No palpable organomegaly. MUSCULOSKELETAL: No joint swelling or deformity. EXTREMITIES: No cyanosis, clubbing, or pedal edema. NEUROLOGICAL: Gross neurological examination did not reveal any focal deficits. SKIN: No rashes. no petechiae. - Labs CBC & Chem 7: 02/04/22 04:25 02/04/22 04:25 Labs: Abnormal Lab Results - Last 24 Hours (Table) 02/03/22 02/03/22 02/04/22 Range/Units 11:10 13:33 00:39 WBC (3.8-10.6) k/uL RBC (4.30-5.90) m/uL ABG Total CO2 (19-24) mmol/L ABG O2 Saturation (94-97) % BUN (9-20) mg/dL Creatinine (0.66-1.25) mg/dL Glucose (74-99) mg/dL POC Glucose (mg/dL) 153 H 131 H 129 H (70-110) mg/dL Calcium (8.4-10.2) mg/dL Ionized Calcium Dhruv (4.5-5.3) mg/dL AST (17-59) U/L ALT (4-49) U/L Alkaline Phosphatase (38-126) U/L Total Protein (6.3-8.2) g/dL Albumin (3.5-5.0) g/dL 02/04/22 02/04/22 02/04/22 Range/Units 04:25 04:25 05:49 WBC 35.1 H (3.8-10.6) k/uL RBC 4.10 L (4.30-5.90) m/uL ABG Total CO2 25 H (19-24) mmol/L ABG O2 Saturation 97.2 H (94-97) % BUN 184 H* (9-20) mg/dL Creatinine 6.22 H (0.66-1.25) mg/dL Glucose 146 H (74-99) mg/dL POC Glucose (mg/dL) (70-110) mg/dL Calcium 6.8 L (8.4-10.2) mg/dL Ionized Calcium Dhruv 3.8 L (4.5-5.3) mg/dL AST 243 H (17-59) U/L ALT 698 H (4-49) U/L Alkaline Phosphatase 227 H (38-126) U/L Total Protein 4.9 L (6.3-8.2) g/dL Albumin 2.4 L (3.5-5.0) g/dL 02/04/22 Range/Units 06:28 WBC (3.8-10.6) k/uL RBC (4.30-5.90) m/uL ABG Total CO2 (19-24) mmol/L ABG O2 Saturation (94-97) % BUN (9-20) mg/dL Creatinine (0.66-1.25) mg/dL Glucose (74-99) mg/dL POC Glucose (mg/dL) 142 H (70-110) mg/dL Calcium (8.4-10.2) mg/dL Ionized Calcium Dhruv (4.5-5.3) mg/dL AST (17-59) U/L ALT (4-49) U/L Alkaline Phosphatase (38-126) U/L Total Protein (6.3-8.2) g/dL Albumin (3.5-5.0) g/dL Microbiology - Last 24 Hours (Table) 02/03/22 12:20 Sputum Culture - Preliminary Sputum Assessment and Plan Assessment: cardiac arrest status post CPR Inferior STEMI status post PCI to PDA Acute hypoxic respiratory failure status post intubated and mechanical ventilation Metabolic acidosis secondary to above Transaminitis secondary to above Altered mental status secondary to above, rule out anoxic brain injury History of Deep venous thrombosis on Xarelto at home Hypertension Hyperlipidemia History of GERD History of facial MRSA Plan: this is a 61 years old male presents with cardiac arrest This is a 61 years old male who presents with cardiac arrest underwent CPR. Continue with intubation and mechanical ventilation Cardiology team on the case as well as pulmonary/critical care team Continue with Zosyn Continue with IV Solu Medrol monitor creatinine and urine output and input Continue with aspirin and Plavix Other cardiac medications management deferred to cardiology team including statin, metoprolol and lisinopril small dose. Labs and medication were reviewed.. Continue same treatment. Continue with symptomatic treatment. Resume home medication. Monitor lytes and vitals. DVT and GI prophylaxis. Further recommendations as per clinical course of the patient DVT prophylaxis: Aspirin and Plavix GI Prophylaxis: Pepcid Prognosis is guarded
[2022-02-04 17:29] LABS: Glucose,Whole Blood 156 mg/dL (70-110)
--- NOTE | 2022-02-04 17:36 | P.PN ---
Subjective PROGRESS NOTE The patient is a 61-year-old male with a known history of CAD, chronic tobacco use, paroxysmal atrial fibrillation who presented with cardiac arrest and ventricular fibrillation per EMS requiring cardioversion 4. On his initial EKG he was in atrial fibrillation with ST segment elevation inferiorly and underwent stenting of his right PDA. He continues to be intubated, in sinus mechanism with improvement in his ST elevation. He is on no vasopressor. His urinary output is stable. He has no evidence of recurrent ventricular t achycardia. In the past his left ventricle systolic function was normal. January 29: The patient remains intubated in sinus tachycardia. There is no evidence of ventricular ectopic activity. He was febrile earlier. He remains sedated. He had some movement of his arms yesterday. He has an elevation of his liver function test as well as worsening of his renal functions. His urine output is low but stable. His blood pressure has been stable. He has no further ventricle tachycardia. He is acidotic and being started on sodium bicarb drip. He underwent placement of an art line and triple lumen yesterday. 01/30 Patient seen and examined. Patient remains intubated and sedated. Per nursing patient had sedation holiday without purposeful movements. His liver enzymes have increase most consistent with shock liver as well as creatinine increasing. He has been receiving IV fluids with normal saline at 100 mL per hour in addition to bicarb drip at 150 mL per hour. Has been off and on low-dose norepinephrine. Echocardiogram pending this morning. 01/31 Patient seen and examined. Echocardiogram performed yesterday shows EF 50-55%. Remains intubated and sedated. Patient is on sedation holiday and currently more lethargic however per nurse he was following some commands with neurology. Has been off of norepinephrine over the last 2 hours. He did receive Lasix 80 mg IV push 1 with improvement in urine output approximately 25 mL per hour currently. Creatinine again increased up to 5 and nephrology has been following. 02/01 Patient seen and examined. Patient remains sedated on propofol. Has been receiving IV fluids however increased upper and lower extremity edema and incre ased vascular congestion on chest x-ray. Blood pressures have been somewhat more elevated. Liver enzymes from yesterday somewhat improved, liver enzymes from today not resulted. 02/02 Patient seen and examined. Patient remains sedated and intubated however per nursing was able to wean sedation a follow-up most all of commands yesterday and currently has been undergoing weaning of sedation and this morning. Blood pressures were better controlled however with weaning of sedation systolics up to 170s. Hydralazine was added yesterday. We will use cleviprex to better titrate blood pressure. Has become mildly hypernatremic. Creatinine going up however still making good urine. Liver enzymes have continued to improve yesterday. Remains on 55% FiO2 with PEEP of 8. CT brain yesterday morning that showed concern of left occipital stroke however by review from neurology not clear and repeat did not clearly show acute/subacute stroke. CVP unclear if accurate however appears around 8. Receiving tube feeds at 45 mL per hour. 02/03 Patient seen and examined. Patient's sodium had increased yesterday and therefore free water flushes that increase. Has required intermittent adjustments to the Cleviprex. He apparently had been attempted to be weaned with sedation holiday however not as responsive. Still at 55% FiO2 with a PEEP of 8. Neck negative for last 24 hours and received Lasix IV yesterday. 02/04 Patient seen and examined. Case discussed with patient's daughter is at [facility]. Attempted weaning the propofol and patient did have some meaningful interactions and following some commands. Has been on Cleviprex at 12 as well as hydralazine. We will increase metoprolol to 50 mg twice a day. Has been making good urine output without any diuretics. Lasix was stopped yesterday. Does have continued upper and lower extremity edema likely component of third spacing. On tube feeds at 34 mL per hour. Medications: Vitals reviewed LUNGS: Clear to auscultation anteriorly, no wheezes HEART: Regular rate and rhythm, S1, S2. No S3. No systolic murmur ABDOMEN: Soft, nontender, no organomegaly EXTREMETIES: 2+U+ LE edema. Intubated and sedated IMPRESSION: 1. Acute cardiac arrest with ventricular fibrillation status post cardioversion. Continues to be in sinus mechanism 2. Evidence of acute inferior myocardial infarction on admission with stenting of the PDA patent stent in the mid RCA 3. Prior history of paroxysmal atrial fibrillation 4. History of hyperlipidemia 5. Rule out anoxic encephalopathy 6. Chronic tobacco use 7. Worsening liver functions, likely shock liver, currently improving 8. Prior history of DVT 9. Fever possible aspiration pneumonia 10. Acute renal injury 11. Acute on chronic diastolic heart failure, component of acute kidney injury as well PLAN: Patient has had some neurologic recovery and neurologic status likely also exacerbated by extreme uremia. Continue with supportive care. Does have bilateral upper and lower extremity edema likely component of third spacing. Albumin noted to be low. Continue with tube feeding. Monitor ins and outs. We will increase metoprolol from 25-50 mg twice a day. Remains hypertensive. Objective - Vital Signs Vital signs: Vital Signs Temp 100.3 F H 02/04/22 16:00 Pulse 100 02/04/22 17:00 Resp 22 02/04/22 17:00 BP 124/72 02/04/22 17:00 Pulse Ox 98 02/04/22 17:00 FiO2 50 02/04/22 16:30 Intake & Output 02/03/22 02/04/22 02/04/22 18:59 06:59 18:59 Intake Total 5700.906 9183.0 706.338 Output Total 2865 2025 1755 Balance -1173.690 -91.0 -1048.662 Weight 96.8 kg Intake: IV 272 292 176 0.9 NaCl 100 120 110 Piperacillin-Tazobactam 3 100 100 .375 gm In Sodium Chloride 0.9% 100 ml @ 25 mls/hr IVPB Q12HR [facility] Rx #:[id number] pressure bag 72 72 66 Intake, IV Titration 507.310 300.0 428.338 Amount Calcium Gluconate in NaCl 100 2 gm In Saline 1 100ml. bag @ 100 mls/hr IVPB ONCE ONE Rx#:[id number] Calcium Gluconate in NaCl 100 2 gm In Saline 1 100ml. bag @ 100 mls/hr IVPB ONCE ONE Rx#:[id number] Clevidipine Butyrate 25 244.199 200.0 197.6 mg In Empty Bag 1 bag @ 1 MG/HR 2 mls/hr IV .Q24H [facility] Rx#:[id number] propofoL 1,000 mg In 163.111 100 130.738 Empty Bag 1 bag @ 5 MCG/ KG/MIN 2.654 mls/hr IV . Q24H [facility] Rx#:[id number] Tube Feeding 272 442 102 Other 640 900 Output: Urine 2265 2025 1755 Stool 600 Other: Voiding Method Indwelling Catheter Indwelling Catheter Indwelling Catheter ABP, PAP, CO, CI - Last Documented Arterial Blood Pressure 160/55 - Labs CBC & Chem 7: 02/04/22 04:25 02/04/22 04:25 Labs: Abnormal Lab Results - Last 24 Hours (Table) 02/04/22 02/04/22 02/04/22 Range/Units 00:39 04:25 04:25 WBC 35.1 H (3.8-10.6) k/uL RBC 4.10 L (4.30-5.90) m/uL ABG Total CO2 (19-24) mmol/L ABG O2 Saturation (94-97) % BUN 184 H* (9-20) mg/dL Creatinine 6.22 H (0.66-1.25) mg/dL Glucose 146 H (74-99) mg/dL POC Glucose (mg/dL) 129 H (70-110) mg/dL Calcium 6.8 L (8.4-10.2) mg/dL Ionized Calcium Dhruv 3.8 L (4.5-5.3) mg/dL AST 243 H (17-59) U/L ALT 698 H (4-49) U/L Alkaline Phosphatase 227 H (38-126) U/L Total Protein 4.9 L (6.3-8.2) g/dL Albumin 2.4 L (3.5-5.0) g/dL 02/04/22 02/04/22 02/04/22 Range/Units 05:49 06:28 12:12 WBC (3.8-10.6) k/uL RBC (4.30-5.90) m/uL ABG Total CO2 25 H (19-24) mmol/L ABG O2 Saturation 97.2 H (94-97) % BUN (9-20) mg/dL Creatinine (0.66-1.25) mg/dL Glucose (74-99) mg/dL POC Glucose (mg/dL) 142 H 143 H (70-110) mg/dL Calcium (8.4-10.2) mg/dL Ionized Calcium Dhruv (4.5-5.3) mg/dL AST (17-59) U/L ALT (4-49) U/L Alkaline Phosphatase (38-126) U/L Total Protein (6.3-8.2) g/dL Albumin (3.5-5.0) g/dL 02/04/22 Range/Units 17:28 WBC (3.8-10.6) k/uL RBC (4.30-5.90) m/uL ABG Total CO2 (19-24) mmol/L ABG O2 Saturation (94-97) % BUN (9-20) mg/dL Creatinine (0.66-1.25) mg/dL Glucose (74-99) mg/dL POC Glucose (mg/dL) 156 H (70-110) mg/dL Calcium (8.4-10.2) mg/dL Ionized Calcium Dhruv (4.5-5.3) mg/dL AST (17-59) U/L ALT (4-49) U/L Alkaline Phosphatase (38-126) U/L Total Protein (6.3-8.2) g/dL Albumin (3.5-5.0) g/dL Microbiology - Last 24 Hours (Table) 02/03/22 12:20 Gram Stain - Preliminary Sputum Sputum Culture - Preliminary
[2022-02-04] MEDS: METOPROLOL TARTRATE 50 MG TAB PO SCH (20:07)
[2022-02-04] MEDS: ATORVASTATIN 80 MG TAB PO SCH (20:07)
[2022-02-04 23:26] LABS: Glucose,Whole Blood 142 mg/dL (70-110)
[2022-02-05] MEDS: INSULIN ASPART (NovoLOG) 100 UNIT/ML VIAL SQ SCH ×4 (00:05→17:53)
[2022-02-05] MEDS: CLEVIDIPINE BUTYRATE 25 MG in EMPTY BAG 1 BAG IV SCH ×5 (00:09→12:28)
[2022-02-05] MEDS: IPRATROPIUM-ALBUTEROL 3 ML NEB INHALATION SCH ×7 (00:34→23:33)
[2022-02-05] MEDS: NOREPINEPHRINE 4 MG in SODIUM CHLORIDE 0.9% 250 ML IV SCH ×2 (03:05→23:12)
[2022-02-05 05:44] LABS: ABG Base Excess -3.2 mmol/L; ABG HCO3 22 mmol/L (21-25); ABG Oxygen Saturation 87.2 % (94-97); ABG PCO2 39 mmHg (35-45); ABG PH 7.37 (7.35-7.45); ABG TCO2 23 mmol/L (19-24); Allen Test Performed? Yes
[2022-02-05 05:49] LABS: ABG PO2 57 mmHg (83-108)
[2022-02-05] MEDS: MORPHINE SULFATE 4 MG/ML SYRINGE IVP PRN (06:02)
[2022-02-05 06:27] LABS: Basophils # (A) 0.5 k/uL (0-0.2); Basophils % (A) 1 %; Eosinophils % (A) 0 %; HCT 38.6 % (39.0-53.0); HGB 13.3 gm/dL (13.0-17.5); Lymphocytes # (A) 0.9 k/uL (1.0-4.8); Lymphocytes % (A) 2 %; MCH 34.1 pg (25.0-35.0); MCHC 34.4 g/dL (31.0-37.0); MCV 99.3 fL (80.0-100.0); Macrocytosis Slight; Mean Platelet Volume 12.4; Monocytes % (A) 2 %; Neutrophils # (A) 37.1 k/uL (1.3-7.7); Neutrophils % (A) 93 %; Platelet Count 164 k/uL (150-450); RBC 3.89 m/uL (4.30-5.90); RDW 14.4 % (11.5-15.5)
[2022-02-05 06:34] LABS: Potassium 4.8 mmol/L (3.5-5.1)
[2022-02-05 06:37] LABS: Glucose,Whole Blood 147 mg/dL (70-110)
[2022-02-05] MEDS: CALCIUM ACETATE 667 MG TAB PO SCH ×3 (08:10→17:53)
[2022-02-05] MEDS: methylPREDNISolone SOD SUCCI 40 MG/ML 1 ML VIAL IV SCH (08:10)
[2022-02-05] MEDS: PIPERACILLIN-TAZOBACTAM 3.375 GM in SODIUM CHLORIDE 0.9% 100 ML IVPB SCH ×2 (08:10→20:44)
[2022-02-05] MEDS: CHLORHEXIDINE GLUCONATE 15 ML CUP MUCOUS MEM SCH ×2 (08:10→20:44)
[2022-02-05] MEDS: FAMOTIDINE 20 MG/2 ML VIAL IV SCH (08:16)
[2022-02-05] MEDS: CLOPIDOGREL 75 MG TAB PO SCH (08:16)
[2022-02-05] MEDS: ASPIRIN 81 MG PO SCH (08:16)
[2022-02-05] MEDS: hydrALAZINE HCL 25 MG TAB PO SCH ×4 (08:16→22:50)
[2022-02-05] MEDS: METOPROLOL TARTRATE 50 MG TAB PO SCH ×3 (08:16→20:44)
--- NOTE | 2022-02-05 09:06 | XR ---
EXAMINATION TYPE: XR chest 1V portable DATE OF EXAM: 02/05/2022 COMPARISON: 02/04/2022 HISTORY: ET tube placement TECHNIQUE: Single frontal view of the chest is obtained. FINDINGS: Stable endotracheal and orogastric tubes. 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 Persistent bibasilar opacities and small left pleural effusion. Cardiac silhouette size stable and upper limits of normal. Osseous structures are intact. IMPRESSION: Bilateral infiltrate and small left effusion are stable
--- NOTE | 2022-02-05 10:22 | P.PN ---
Subjective HPI: This patient has known history of CAD chronic tobacco abuse paroxysmal A. fib present with a cardiac arrest and underwent stenting of PDA branch of RCA. He is still on a ventilator difficult to wean. He is maintaining sinus rhythm has worsening renal function. Patient is not on any pressors. He is actually hypertensive and he is on clevipress.. I am recommending that we increase the metoprolol to 3 times a day same dose. 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 PHYSICIAL EXAM: Patient is on a ventilator vital signs stable JVD is evident S1- S2 heard normally short systolic murmur noted lungs revealed ventilatory assisted breath sounds abdomen is soft lower x-rays reveal diminished pulses central nervous system assessment was not performed. IMPRESSION: 1. Cardiac arrest and stenting of PDA branch of RCA. 2. Probable aspiration pneumonia respiratory failure on a ventilator. 3. . 4. . 5. . RECOMMENDATIONS: No new recommendations from a cardiac standpoint the meaning efforts are in progress will continue current medical regimenas remains poor. There is modest improvement in creatinine but overall clinical picture and prognosis seems poor. Objective - Vital Signs Vital signs: Vital Signs Temp 98.9 F 02/05/22 08:00 Pulse 106 H 02/05/22 09:30 Resp 20 02/05/22 09:30 BP 118/73 02/05/22 09:30 Pulse Ox 98 02/05/22 09:30 FiO2 60 02/05/22 08:00 Intake & Output 02/04/22 02/05/22 02/05/22 18:59 06:59 18:59 Intake Total 818.726 4635.367 122.785 Output Total 1905 2060 270 Balance -1132.662 -934.633 -147.215 Weight 96.8 kg Intake: IV 192 308 32 0.9 NaCl 120 130 20 Piperacillin-Tazobactam 3 100 .375 gm In Sodium Chloride 0.9% 100 ml @ 25 mls/hr IVPB Q12HR [facility] Rx #:[id number] pressure bag 72 78 12 Intake, IV Titration 478.338 375.367 56.785 Amount Calcium Gluconate in NaCl 100 2 gm In Saline 1 100ml. bag @ 100 mls/hr IVPB ONCE ONE Rx#:[id number] Clevidipine Butyrate 25 247.6 228.4 mg In Empty Bag 1 bag @ 1 MG/HR 2 mls/hr IV .Q24H [facility] Rx#:[id number] propofoL 1,000 mg In 130.738 146.967 56.785 Empty Bag 1 bag @ 5 MCG/ KG/MIN 2.654 mls/hr IV . Q24H [facility] Rx#:[id number] Tube Feeding 102 442 34 Output: Urine 1905 2060 270 Other: Voiding Method Indwelling Catheter Indwelling Catheter ABP, PAP, CO, CI - Last Documented Arterial Blood Pressure 139/55 - Labs CBC & Chem 7: 02/05/22 05:45 02/05/22 05:45 Labs: Abnormal Lab Results - Last 24 Hours (Table) 02/04/22 02/04/22 02/04/22 Range/Units 12:12 17:28 23:25 WBC (3.8-10.6) k/uL RBC (4.30-5.90) m/uL Hct (39.0-53.0) % Neutrophils # (1.3-7.7) k/uL Lymphocytes # (1.0-4.8) k/uL Basophils # (0-0.2) k/uL ABG pO2 (83-108) mmHg ABG O2 Saturation (94-97) % Carbon Dioxide (22-30) mmol/L BUN (9-20) mg/dL Creatinine (0.66-1.25) mg/dL Glucose (74-99) mg/dL POC Glucose (mg/dL) 143 H 156 H 142 H (70-110) mg/dL Calcium (8.4-10.2) mg/dL 02/05/22 02/05/22 02/05/22 Range/Units 05:41 05:45 05:45 WBC 40.0 H (3.8-10.6) k/uL RBC 3.89 L (4.30-5.90) m/uL Hct 38.6 L (39.0-53.0) % Neutrophils # 37.1 H (1.3-7.7) k/uL Lymphocytes # 0.9 L (1.0-4.8) k/uL Basophils # 0.5 H (0-0.2) k/uL ABG pO2 57 L* (83-108) mmHg ABG O2 Saturation 87.2 L (94-97) % Carbon Dioxide 20 L (22-30) mmol/L BUN 188 H* (9-20) mg/dL Creatinine 5.46 H (0.66-1.25) mg/dL Glucose 130 H (74-99) mg/dL POC Glucose (mg/dL) (70-110) mg/dL Calcium 7.0 L (8.4-10.2) mg/dL 02/05/22 Range/Units 06:35 WBC (3.8-10.6) k/uL RBC (4.30-5.90) m/uL Hct (39.0-53.0) % Neutrophils # (1.3-7.7) k/uL Lymphocytes # (1.0-4.8) k/uL Basophils # (0-0.2) k/uL ABG pO2 (83-108) mmHg ABG O2 Saturation (94-97) % Carbon Dioxide (22-30) mmol/L BUN (9-20) mg/dL Creatinine (0.66-1.25) mg/dL Glucose (74-99) mg/dL POC Glucose (mg/dL) 147 H (70-110) mg/dL Calcium (8.4-10.2) mg/dL Microbiology - Last 24 Hours (Table) 02/03/22 12:20 Gram Stain - Final Sputum Sputum Culture - Final
--- NOTE | 2022-02-05 11:06 | P.PN ---
Subjective Progress Note Date: 02/05/22 Principal diagnosis: Respiratory failure. Reevaluated today on 02/02/22, patient remains in the ICU, intubated and mechanically ventilated. Not much is happening compared to the last few days, patient is basically about the same. Patient is intubated mechanically ventilated, he is on assist control rate of 24 volume 500 FiO2 55% PEEP of 8 ABG showed a pO2 of 70 pCO2 36 pH of 7.41. Recent CT of the brain showed left occipital infarct. Patient remains on clevidipine 6 mg per hour remains on propofol at 25 mcg/kg/m he is on vital HVS 54 mL/h patient is also on Zosyn and Lasix 80 mg daily. Patient is receiving free water flushes 300 mL every 4 hours. Neurologically the patient is about the same, opens eyes, but does not follow any instructions to verbal stimuli. Chest x-ray continues show bilateral infiltrates, opacities. WBC count is 29.9 hemoglobin is 11.8 basic metabolic profile continues to show hyponatremia with a sodium of 147 renal profile remains poor with BUN of 145 creatinine 6.69. Nonetheless the patient continues to have fairly good urine output. Liver enzymes are improving ALT is down to 166 AST 470 and alkaline phosphatase is 190 Reevaluated today on 02/03/2022, patient remains in the ICU, intubated and mechanically ventilated. Family members including his daughter at bedside. He is on assist control at 24, volume 500 FiO2 55% PEEP of 8 ABG showed a pO2 of 77 pCO2 38 pH of 7.38. Patient is presently on low dose of propofol at 10 mcg/kg/m she is off norepinephrine but requiring clevidipine 9 mg per hour. His ABG was reviewed and no vent changes were made. His chest x-ray continues to show by basilar opacities consistent with minimal aspiration pneumonia. Renal functioning remains poor although the patient does have good urine output. Being followed by nephrology and again no need for hemodialysis at this point yet. Neurology-orellana the patient is awake, he is able to follow very simple instructions like closing eyes and opening eyes, wiggling toes, but cannot squeeze hands. Patient seems to be generally weak. And his mental status seems to wax and wane on a daily basis. Today I had a long discussion with the family members at bedside, and prepared the family to possibly consider tracheostomy and PEG tube placement unless the neurologist feels that the patient has a very poor quality of life and very poor neurological prognosis than family seems to be agreeable to consider comfort care measures if that is truly the case. Today I suggested that he discuss his neurological status with the neurologist and get an update as far as what he anticipates and what he expects. Reevaluated today on 02/04/2022, patient is basically about the same. Remains intubated and mechanically ventilated. Remains on assist control rate of 24th of volume 500 FiO2 55% PEEP of 8 and I cut down his FiO2 down to 50%. His ABG showed a pO2 of 96 pCO2 37 pH of 7.42. Patient is now on propofol at 25 mcg/kg/m she is also on clevidipine at 10 mg per hour and IV fluid at KVO. He is receiving vital H3 at 34 mL per hour. Patient again is arousable, opens his eyes, but today he is not following any instructions. However the propofol is being decreased further down to fully assess mental status, today he seems to be a bit worse compared to yesterday. Chest x-ray showing improvement in his by basilar infiltrates nonetheless he remains on Zosyn. Apparently the neurologist discussed his condition with the family, and in his note stating that it is not clear and unable to predict the quality of life considering his anoxic brain injury and encephalopathy. Family is willing to consider comfort care measures if the neurologist believes that the quality of life is poor otherwise family is also willing to proceed with tracheostomy and PEG tube feeding if felt that his prognosis is good. I feel that the patient has very poor prognosis and very poor quality of life considering his overall picture Progress note dated 02/05/2022. This is a 61-year-old male who was admitted back on January 28 with a ventricular fibrillation arrest. He came to the ICU on January 28, and was intubated on the same day. The patient remains on the mechanical ventilator. The patient is currently on volume assist control, rate 24, tidal volume 500, FiO2 60%, PEEP of 8. Blood gases show pO2 of 57, pCO2 39, and a pH is 7.37. Those blood gases were done on 50% oxygen. He's currently on propofol at 40 mcg/kg/m, Cleveprex at 11 mg an hour, saline at 20 mL an hour, and vital high protein at 34 mL an hour, which is goal. Today, we will attempt a daily interruption of sedation, and a spontaneous breathing trial. White count 40,000, hemoglobin 13.3, hematocrit 38.6, and platelet count 264,000. Sodium 144, potassium 4.8, chlorides 106, CO2 20, BUN 188, creatinine 5.46, and anion gap 18. Chest x-ray continues to show bilateral infiltrates. Microbiologic studies are thus far negative. Objective - Vital Signs Vital signs: Vital Signs Temp 98.9 F 02/05/22 08:00 Pulse 104 H 02/05/22 10:00 Resp 26 H 02/05/22 10:00 BP 117/80 02/05/22 10:00 Pulse Ox 98 02/05/22 10:00 FiO2 60 02/05/22 08:00 Intake & Output 02/04/22 02/05/22 02/05/22 18:59 06:59 18:59 Intake Total 384.058 9456.367 295.074 Output Total 1904 2059 420 Balance -1132.662 -934.633 -124.926 Weight 96.8 kg 96.8 kg Intake: IV 192 308 148 0.9 NaCl 120 130 30 Piperacillin-Tazobactam 3 100 100 .375 gm In Sodium Chloride 0.9% 100 ml @ 25 mls/hr IVPB Q12HR [facility] Rx #:[id number] pressure bag 72 78 18 Intake, IV Titration 478.338 375.367 113.074 Amount Calcium Gluconate in NaCl 100 2 gm In Saline 1 100ml. bag @ 100 mls/hr IVPB ONCE ONE Rx#:[id number] Clevidipine Butyrate 25 247.6 228.4 45.1 mg In Empty Bag 1 bag @ 1 MG/HR 2 mls/hr IV .Q24H [facility] Rx#:[id number] propofoL 1,000 mg In 130.738 146.967 67.974 Empty Bag 1 bag @ 5 MCG/ KG/MIN 2.654 mls/hr IV . Q24H [facility] Rx#:[id number] Tube Feeding 102 442 34 Output: Urine 1904 2059 420 Other: Voiding Method Indwelling Catheter Indwelling Catheter Indwelling Catheter ABP, PAP, CO, CI - Last Documented Arterial Blood Pressure 147/56 - Exam No acute distress, sedated, with an orally placed endotracheal tube and NG tube. HEENT examination is grossly unremarkable. Neck supple. Full range of motion. No adenopathy thyromegaly or neck vein distention. Cardiovascular examination reveals regular rhythm rate. S1-S2 normal. No S3 or S4. No discernible murmur noted. Heart sounds are distant, and heart rate is 104 bpm. Lungs reveal bilateral scattered rhonchi. No wheezes. No crackles. Breath karime nds are equal bilaterally. Saturations are 98%. Abdomen soft, with bowel sounds. No masses or tenderness. Extremities are intact. No cyanosis clubbing or edema. Skin is without rash or lesion. Neurologic examination cannot be adequately assessed. - Labs CBC & Chem 7: 02/05/22 05:45 02/05/22 05:45 Labs: Abnormal Lab Results - Last 24 Hours (Table) 02/04/22 02/04/22 02/04/22 Range/Units 12:12 17:28 23:25 WBC (3.8-10.6) k/uL RBC (4.30-5.90) m/uL Hct (39.0-53.0) % Neutrophils # (1.3-7.7) k/uL Lymphocytes # (1.0-4.8) k/uL Basophils # (0-0.2) k/uL ABG pO2 (83-108) mmHg ABG O2 Saturation (94-97) % Carbon Dioxide (22-30) mmol/L BUN (9-20) mg/dL Creatinine (0.66-1.25) mg/dL Glucose (74-99) mg/dL POC Glucose (mg/dL) 143 H 156 H 142 H (70-110) mg/dL Calcium (8.4-10.2) mg/dL 02/05/22 02/05/22 02/05/22 Range/Units 05:41 05:45 05:45 WBC 40.0 H (3.8-10.6) k/uL RBC 3.89 L (4.30-5.90) m/uL Hct 38.6 L (39.0-53.0) % Neutrophils # 37.1 H (1.3-7.7) k/uL Lymphocytes # 0.9 L (1.0-4.8) k/uL Basophils # 0.5 H (0-0.2) k/uL ABG pO2 57 L* (83-108) mmHg ABG O2 Saturation 87.2 L (94-97) % Carbon Dioxide 20 L (22-30) mmol/L BUN 188 H* (9-20) mg/dL Creatinine 5.46 H (0.66-1.25) mg/dL Glucose 130 H (74-99) mg/dL POC Glucose (mg/dL) (70-110) mg/dL Calcium 7.0 L (8.4-10.2) mg/dL 02/05/22 Range/Units 06:35 WBC (3.8-10.6) k/uL RBC (4.30-5.90) m/uL Hct (39.0-53.0) % Neutrophils # (1.3-7.7) k/uL Lymphocytes # (1.0-4.8) k/uL Basophils # (0-0.2) k/uL ABG pO2 (83-108) mmHg ABG O2 Saturation (94-97) % Carbon Dioxide (22-30) mmol/L BUN (9-20) mg/dL Creatinine (0.66-1.25) mg/dL Glucose (74-99) mg/dL POC Glucose (mg/dL) 147 H (70-110) mg/dL Calcium (8.4-10.2) mg/dL Microbiology - Last 24 Hours (Table) 02/03/22 12:20 Gram Stain - Final Sputum Sputum Culture - Final Assessment and Plan Assessment: Acute hypoxemic respiratory failure, secondary to ventricular fibrillation arrest, on January 28, status post intubation and mechanical ventilation, since. Status post cardiac arrest with ventricular fibrillation, and cardioversion, with acute inferior wall myocardial infarction, and stenting of the PDA. Paroxysmal atrial fibrillation. Anion gap metabolic acidosis. Acute kidney injury. Tobacco dependence syndrome. Prior history of DVT. Possible aspiration pneumonia. Shock liver, status post cardiac arrest. Possible anoxic brain injury, status post arrest. History of underlying COPD. History of chronic low back pain. Previous history of colostomy with reversal. Plan: Plan dated 02/05/2022. The patient remains on mechanical ventilator. The plan today is to try a daily interruption of sedation, and possibly a spontaneous breathing trial. If the patient does poorly, have the surgeon see him for a tracheostomy and PEG tube placement. We continue on GI and DVT prophylaxis, and treatment of his elevated blood pressure, with Cleveprex. The patient will continue on tube feeds as well. The patient continues on antibiotics, empirically. The patient is obviously quite ill. We will continue to follow. Prognosis is guarded. Recommendations will be made, where appropriate. Time with Patient: Greater than 30
[2022-02-05 11:48] LABS: Glucose,Whole Blood 123 mg/dL (70-110)
--- NOTE | 2022-02-05 14:16 | P.PN ---
Subjective Patient is seen for follow-up for acute kidney injury. He is currently on the vent Patient's sedation is on hold. He is maintained on CPAP She remains on Plavix Prax Urine output at 100-1 50 mL an hour. Serum creatinine has decreased to 5.4 today from 6.2 yesterday. Lasix is on hold along with steroids. Objective - Vital Signs Vital signs: Vital Signs Temp 98.1 F 02/05/22 12:00 Pulse 105 H 02/05/22 12:00 Resp 24 02/05/22 12:00 BP 159/79 02/05/22 12:00 Pulse Ox 97 02/05/22 12:00 FiO2 60 02/05/22 13:32 Intake & Output 02/04/22 02/05/22 02/05/22 18:59 06:59 18:59 Intake Total 643.784 4461.367 394.874 Output Total 19040 645 Balance -1132.662 -934.633 -250.126 Weight 96.8 kg 96.8 kg Intake: IV 192 308 180 0.9 NaCl 120 130 50 Piperacillin-Tazobactam 3 100 100 .375 gm In Sodium Chloride 0.9% 100 ml @ 25 mls/hr IVPB Q12HR [facility] Rx #:[id number] pressure bag 72 78 30 Intake, IV Titration 478.338 375.367 180.874 Amount Calcium Gluconate in NaCl 100 2 gm In Saline 1 100ml. bag @ 100 mls/hr IVPB ONCE ONE Rx#:[id number] Clevidipine Butyrate 25 247.6 228.4 112.900 mg In Empty Bag 1 bag @ 1 MG/HR 2 mls/hr IV .Q24H [facility] Rx#:[id number] propofoL 1,000 mg In 130.738 146.967 67.974 Empty Bag 1 bag @ 5 MCG/ KG/MIN 2.654 mls/hr IV . Q24H [facility] Rx#:[id number] Tube Feeding 102 442 34 Output: Urine 19040 645 Other: Voiding Method Indwelling Catheter Indwelling Catheter Indwelling Catheter ABP, PAP, CO, CI - Last Documented Arterial Blood Pressure 139/56 - Exam Patient is awake. He is not following commands yet Sedation is currently on hold He remains intubated Examination of the heart S1 and S2 Examination of the lungs bilateral breath sounds are heard Abdomen is soft nontender Examination of the lower extremities shows no significant edema. - Labs CBC & Chem 7: 02/05/22 05:45 02/05/22 05:45 Labs: Abnormal Lab Results - Last 24 Hours (Table) 02/04/22 02/04/22 02/05/22 Range/Units 17:28 23:25 05:41 WBC (3.8-10.6) k/uL RBC (4.30-5.90) m/uL Hct (39.0-53.0) % Neutrophils # (1.3-7.7) k/uL Lymphocytes # (1.0-4.8) k/uL Basophils # (0-0.2) k/uL ABG pO2 57 L* (83-108) mmHg ABG O2 Saturation 87.2 L (94-97) % Carbon Dioxide (22-30) mmol/L BUN (9-20) mg/dL Creatinine (0.66-1.25) mg/dL Glucose (74-99) mg/dL POC Glucose (mg/dL) 156 H 142 H (70-110) mg/dL Calcium (8.4-10.2) mg/dL 02/05/22 02/05/22 02/05/22 Range/Units 05:45 05:45 06:35 WBC 40.0 H (3.8-10.6) k/uL RBC 3.89 L (4.30-5.90) m/uL Hct 38.6 L (39.0-53.0) % Neutrophils # 37.1 H (1.3-7.7) k/uL Lymphocytes # 0.9 L (1.0-4.8) k/uL Basophils # 0.5 H (0-0.2) k/uL ABG pO2 (83-108) mmHg ABG O2 Saturation (94-97) % Carbon Dioxide 20 L (22-30) mmol/L BUN 188 H* (9-20) mg/dL Creatinine 5.46 H (0.66-1.25) mg/dL Glucose 130 H (74-99) mg/dL POC Glucose (mg/dL) 147 H (70-110) mg/dL Calcium 7.0 L (8.4-10.2) mg/dL 07/11/22 Range/Units 11:46 WBC (3.8-10.6) k/uL RBC (4.30-5.90) m/uL Hct (39.0-53.0) % Neutrophils # (1.3-7.7) k/uL Lymphocytes # (1.0-4.8) k/uL Basophils # (0-0.2) k/uL ABG pO2 (83-108) mmHg ABG O2 Saturation (94-97) % Carbon Dioxide (22-30) mmol/L BUN (9-20) mg/dL Creatinine (0.66-1.25) mg/dL Glucose (74-99) mg/dL POC Glucose (mg/dL) 123 H (70-110) mg/dL Calcium (8.4-10.2) mg/dL Microbiology - Last 24 Hours (Table) 02/03/22 12:20 Gram Stain - Final Sputum Sputum Culture - Final Assessment and Plan Assessment: 1. Acute kidney injury ATN following cardiac arrest. Baseline creatinine around 1 and peaked at 6.69, currently improving and down to 5.46. Patient is nonoliguric. B UN is disproportionately elevated associated with steroids, hypercatabolic state and recent diuresis. 2. Status post V. fib/arrest on 02/24/2022 3. Coronary artery disease status post right PDA stenting on 02/24/2022 4. Shock liver 5. Possible aspiration pneumonia, maintained on antibiotics 6. Anoxic brain injury being followed by neurology 7. Metabolic acidosis associated with acute kidney injury, IV fluids and lactic acidosis currently improved 8. Hyperphosphatemia associated with acute kidney injury maintained on PhosLo 9. Volume overload status post diuresis, improved 10. Hypernatremia currently improved Plan: Continue with free water flushes Repeat labs in a.m. Continue off of diuretics.
--- NOTE | 2022-02-05 14:59 | P.GSCN ---
History of Present Illness Consult date: 02/05/22 History of present illness: CHIEF COMPLAINT: Cardiac arrest HISTORY OF PRESENT ILLNESS: This is a 61-year-old male who was found collapsed at home and unresponsive. He is found to be in ventricle fibrillation with cardiac arrest and respiratory failure underwent CPR and cardioversion by EMS. Patient had evidence of acute ME and underwent emergent cardiac catheterization with stenting to the right PDA. Patient currently on aspirin and Plavix. Patient required to be intubated on 01/28/2022 the day he was admitted. He is on FiO2 of 60% and PEEP of 8. He is unable to be weaned from the vent. Patient also evidence of an acute kidney injury followed by nephrology. And concerns for anoxic brain injury and is being evaluated by neurology. Surgical consult has been placed for tracheostomy and PEG tube placement. PAST MEDICAL HISTORY: See list. PAST SURGICAL HISTORY: Diverticulitis requiring bowel resection with colostomy and reversal MEDICATIONS: See list. ALLERGIES: See list. SOCIAL HISTORY: No illicit drug use. REVIEW OF SYSTEMS: unable to obtain. Patient intubated PHYSICAL EXAM: VITAL SIGNS: Reviewed GENERAL: Well-developed in no acute distress. HEENT: No sclera icterus. Extraocular movements grossly intact. Moist buccal mucosa. Head is atraumatic, normocephalic. No nasal drainage. ABDOMEN: Soft. Nondistended. NEUROLOGIC: Intubated. he is able to open his eyes LABORATORY DATA: WBC 40 Hgb 13.3 platelets 164 Sodium 144 potassium 4.8 creatinine 5.46 Albumin 2.4 IMAGING: ASSESSMENT: 1. Acute hypoxic respiratory failure 2. Severe protein calorie malnutrition 3. Cardiac arrest with ventricle fibrillation 4. Acute inferior wall myocardial infarction status post stenting of the PDA 5. Anoxic brain injury PLAN: -Further recommendations for tracheostomy and PEG tube placement forthcoming per surgeon -Continue ICU management -Continue supportive care Thank you for this consultation Physician Client Services Representative note has been reviewed by physician. Signing provider agrees with the documented findings, assessment, and plan of care. I have personally seen and examined the patient, reviewed the [employer] /PAs history, exam and MDM and agree with the assessment and plan as written. Based on total visit time, I have performed more than 50% of the visit. As above: Patient on the ventilator and difficult to wean at this time. Pulmonary is recommending tracheostomy and PEG tube placement. Discussed with the patient's daughter Yonatan. We'll tentatively proceed with tracheostomy and PEG tube placement in the next few days. Risks of bleeding increased because of the underlying Plavix use. Additional risks of pneumothorax pneumomediastinum loss of airway catheter malposition bowel injury abscess wound infection fistula peritonitis and were all reviewed. Patient's daughter understands and wishes to proceed. Past Medical History Past Medical History: Chest Pain / Angina, COPD, Deep Vein Thrombosis (DVT), GERD/Reflux, Hyperlipidemia, Hypertension, Myocardial Infarction (ME), Osteoarthritis (OA) Additional Past Medical History / Comment(s): History of hepatitis A, chronic pain, gout, "kidneys shut down x2 when sick". Back pain, TIA 2009 Last Myocardial Infarction Date:: 1999 History of Any Multi-Drug Resistant Organisms: MRSA Year Discovered:: 2015 MDRO Source:: face MRSA Past Surgical History: Bowel Resection, Heart Catheterization With Stent, Hernia Repair, Orthopedic Surgery Additional Past Surgical History / Comment(s): Shoulder surgery, hernia, cataracts, pain clinic procedures, colostomy. right testicle removed. Past Anesthesia/Blood Transfusion Reactions: No Reported Reaction Date of Last Stent Placement:: 1999 Past Psychological History: Anxiety, Depression Smoking Status: Former smoker Past Alcohol Use History: Daily Past Drug Use History: None Reported - Past Family History Mother Family Medical History: Cancer, Myocardial Infarction (ME) Additional Family Medical History / Comment(s): Mother had unknown type of cancer. She of a ME at the age of 68yrs. Father Family Medical History: Myocardial Infarction (ME) Additional Family Medical History / Comment(s): Father from his heart "exploding" at the age of 58 yrs. Sister(s) Family Medical History: Cancer Additional Family Medical History / Comment(s): Sisters x2 Medications and Allergies Home Medications Medication Instructions Recorded Confirmed Type Furosemide [Lasix] 40 mg PO BID #60 tab 07/23/20 01/30/22 Rx Albuterol Sulfate [Ventolin HFA] 1 - 2 puff INHALATION RT-Q6H PRN 07/21/21 01/30/22 History Metoprolol Tartrate [Lopressor] 100 mg PO BID-W/MEALS 12/11/21 01/30/22 History Nitroglycerin Sl Tabs [Nitrostat] 0.4 mg SL Q5M PRN 12/11/21 01/30/22 History Sertraline [Zoloft] 50 mg PO DAILY 12/11/21 01/28/22 History Atorvastatin [Lipitor] 80 mg PO HS 90 Days #90 tab 12/12/21 01/30/22 Rx Isosorbide Mononitrate ER [Imdur] 60 mg PO DAILY 01/28/22 01/30/22 History Rivaroxaban [Xarelto] 20 mg PO W/SUPPER 01/28/22 01/30/22 History cloNIDine HCL [Catapres] 0.2 mg PO BID 01/28/22 01/30/22 History lisinopriL 40 mg PO DAILY 01/28/22 01/30/22 History amLODIPine [Norvasc] 10 mg PO DAILY 01/30/22 01/30/22 History Allergies Allergy/AdvReac Type Severity Reaction Status Date / Time No Known Allergies Allergy Verified 01/28/22 00:56 Surgical - Exam Vital Signs Temp Pulse Resp BP Pulse Ox 97.7 F 97 20 186/129 85 L 01/28/22 00:49 01/28/22 00:49 01/28/22 00:49 01/28/22 00:49 01/28/22 00:49 Results - Labs 02/05/22 05:45 02/05/22 05:45 Abnormal Lab Results - Last 24 Hours (Table) 02/04/22 02/04/22 02/05/22 Range/Units 17:28 23:25 05:41 WBC (3.8-10.6) k/uL RBC (4.30-5.90) m/uL Hct (39.0-53.0) % Neutrophils # (1.3-7.7) k/uL Lymphocytes # (1.0-4.8) k/uL Basophils # (0-0.2) k/uL ABG pO2 57 L* (83-108) mmHg ABG O2 Saturation 87.2 L (94-97) % Carbon Dioxide (22-30) mmol/L BUN (9-20) mg/dL Creatinine (0.66-1.25) mg/dL Glucose (74-99) mg/dL POC Glucose (mg/dL) 156 H 142 H (70-110) mg/dL Calcium (8.4-10.2) mg/dL 02/05/22 02/05/22 02/05/22 Range/Units 05:45 05:45 06:35 WBC 40.0 H (3.8-10.6) k/uL RBC 3.89 L (4.30-5.90) m/uL Hct 38.6 L (39.0-53.0) % Neutrophils # 37.1 H (1.3-7.7) k/uL Lymphocytes # 0.9 L (1.0-4.8) k/uL Basophils # 0.5 H (0-0.2) k/uL ABG pO2 (83-108) mmHg ABG O2 Saturation (94-97) % Carbon Dioxide 20 L (22-30) mmol/L BUN 188 H* (9-20) mg/dL Creatinine 5.46 H (0.66-1.25) mg/dL Glucose 130 H (74-99) mg/dL POC Glucose (mg/dL) 147 H (70-110) mg/dL Calcium 7.0 L (8.4-10.2) mg/dL 02/05/22 Range/Units 11:46 WBC (3.8-10.6) k/uL RBC (4.30-5.90) m/uL Hct (39.0-53.0) % Neutrophils # (1.3-7.7) k/uL Lymphocytes # (1.0-4.8) k/uL Basophils # (0-0.2) k/uL ABG pO2 (83-108) mmHg ABG O2 Saturation (94-97) % Carbon Dioxide (22-30) mmol/L BUN (9-20) mg/dL Creatinine (0.66-1.25) mg/dL Glucose (74-99) mg/dL POC Glucose (mg/dL) 123 H (70-110) mg/dL Calcium (8.4-10.2) mg/dL Microbiology - Last 24 Hours (Table) 02/03/22 12:20 Gram Stain - Final Sputum Sputum Culture - Final Diabetes panel 02/05/22 Range/Units 05:45 Sodium 144 (137-145) mmol/L Potassium 4.8 (3.5-5.1) mmol/L Chloride 106 (98-107) mmol/L Carbon Dioxide 20 L (22-30) mmol/L BUN 188 H* (9-20) mg/dL Creatinine 5.46 H (0.66-1.25) mg/dL Glucose 130 H (74-99) mg/dL Calcium 7.0 L (8.4-10.2) mg/dL Calcium panel 02/05/22 Range/Units 05:45 Calcium 7.0 L (8.4-10.2) mg/dL Pituitary panel 02/05/22 Range/Units 05:45 Sodium 144 (137-145) mmol/L Potassium 4.8 (3.5-5.1) mmol/L Chloride 106 (98-107) mmol/L Carbon Dioxide 20 L (22-30) mmol/L BUN 188 H* (9-20) mg/dL Creatinine 5.46 H (0.66-1.25) mg/dL Glucose 130 H (74-99) mg/dL Calcium 7.0 L (8.4-10.2) mg/dL Adrenal panel 02/05/22 Range/Units 05:45 Sodium 144 (137-145) mmol/L Potassium 4.8 (3.5-5.1) mmol/L Chloride 106 (98-107) mmol/L Carbon Dioxide 20 L (22-30) mmol/L BUN 188 H* (9-20) mg/dL Creatinine 5.46 H (0.66-1.25) mg/dL Glucose 130 H (74-99) mg/dL Calcium 7.0 L (8.4-10.2) mg/dL
[2022-02-05 17:48] LABS: Glucose,Whole Blood 137 mg/dL (70-110)
[2022-02-05] MEDS: ATORVASTATIN 80 MG TAB PO SCH (20:44)
[2022-02-06 00:49] LABS: Glucose,Whole Blood 102 mg/dL (70-110)
[2022-02-06] MEDS: INSULIN ASPART (NovoLOG) 100 UNIT/ML VIAL SQ SCH ×4 (00:54→18:02)
--- NOTE | 2022-02-06 01:52 | P.PN ---
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 Elevated lactic acid at 5.0. Creatinine 1.2 and after discussed with the normal limits. Liver enzymes elevated 847 AST and 636 ALT Urinalysis showed 2+ protein and large blood Chest x-ray: No consolidation 02/03/2022 Patient is seen and evaluated in ICU; veins intubated and mechanically ventilated; currently on low-dose propofol; off norepinephrine but requiring clevidipine 9 mg per hour ABG was reviewed and no vent changes were made. His chest x-ray continues to show by basilar opacities consistent with minimal aspiration pneumonia. Renal f unctioning remains poor although the patient does have good urine output. Being followed by nephrology and again no need for hemodialysis at this point yet. Prognosis was discussed with the family members by account development representative service, and prepared the family to possibly consider tracheostomy and PEG tube placement unless the neurologist feels that the patient has a very poor quality of life and very poor neurological prognosis than family seems to be agreeable to consider comfort care measures if that is truly the case. 02/04/2022 Patient seen and evaluated in ICU; remains intubated and mechanically ventilated. Currently on assist control rate of 24th of volume 500 FiO2 55% PEEP of 8 and I cut down his FiO2 down to 50%; ABG showed a pO2 of 96 pCO2 37 pH of 7.42. Patient is now on propofol and clevidipine at 10 mg per hour. -- Patient is arousable, opens his eyes, but today he is not following any instructions. --Chest x-ray showing improvement in his by basilar infiltrates nonetheless he remains on Zosyn. According to account development representative records family is prepared to consider comfort care measures if the neurologist believes that the quality of life is poor otherwise family is also willing to proceed with tracheostomy and PEG tube feeding if felt that his prognosis is good. Patient has very poor prognosis and very poor quality of life considering his overall picture 02/05/2022 Patient is seen in follow-up continues to be in the ICU mechanically intubated and currently on sedation holiday. Patient does open eyes although not following any commands. Multiple medical consultations following and general surgery being consulted for possible peg and trach as he is having difficulty weaning from the vent. Patient continues to require cleviprex. Vent is currently an FI02 of 60%. Chest xray today shows stable bilateral infiltrate and small left pleural effusion. Lasix remains on hold and nephrology following. Creatinine is elevated above 5 although this is improved from yesterday. WBC remains elevated and continued on empiric antibiotics. Patient is currently afebrile and noted generalized edema throughout. Review of systems: unable to obtain as patient is currently intubated and working on sedation holiday and not following any commands Active Medications Albuterol/Ipratropium (Ipratropium-Albuterol 3 Ml Neb) 3 ml INHALATION RT-Q4H [facility] Last Admin: 02/05/22 11:13 Dose: 3 ml Albuterol/Ipratropium (Ipratropium-Albuterol 3 Ml Neb) 3 ml INHALATION RT-Q2H PRN PRN Reason: Shortness Of Breath Or Wheezing Aspirin (Aspirin 81 Mg) 81 mg PO DAILY [facility] Last Admin: 02/05/22 08:16 Dose: 81 mg Atorvastatin Calcium (Atorvastatin 80 Mg Tab) 80 mg PO HS [facility] Last Admin: 02/04/22 20:07 Dose: 80 mg Atropine Sulfate (Atropine Sulfate 0.1 Mg/Ml 10ml Syringe) 0.5 mg IV ONCE PRN PRN Reason: Symptomatic Bradycardia Calcium Acetate (Calcium Acetate 667 Mg Tab) 667 mg PO TID-W/MEALS [facility] Last Admin: 02/05/22 12:08 Dose: 667 mg Chlorhexidine Gluconate (Chlorhexidine Gluconate 15 Ml Cup) 15 ml MUCOUS MEM BID [facility] Last Admin: 02/05/22 08:10 Dose: 15 ml Clopidogrel Bisulfate (Clopidogrel 75 Mg Tab) 75 mg PO DAILY [facility]; Protocol Last Admin: 02/05/22 08:16 Dose: 75 mg Famotidine (Famotidine 20 Mg/2 Ml Vial) 20 mg IV DAILY [facility] Last Admin: 02/05/22 08:16 Dose: 20 mg Hydralazine HCl (Hydralazine Hcl 25 Mg Tab) 25 mg PO QID [facility] Last Admin: 02/05/22 12:09 Dose: 25 mg Propofol 1,000 mg/ IV Solution 100 mls @ 2.654 mls/hr IV .Q24H [facility]; Protocol Last Titration: 02/05/22 14:52 Dose: 15 mcg/kg/min, 7.961 mls/hr Piperacillin Sod/Tazobactam (Sod 3.375 gm/ Sodium Chloride) 100 mls @ 25 mls/hr IVPB Q12HR [facility]; Protocol Last Admin: 02/05/22 08:10 Dose: 25 mls/hr Clevidipine 25 mg/ IV Solution 50 mls @ 2 mls/hr IV .Q24H [facility]; Protocol Last Titration: 02/05/22 13:45 Dose: 6 mg/hr, 12 mls/hr Insulin Aspart (Insulin Aspart (Novolog) 100 Unit/Ml Vial) 0 unit SQ Q6H [facility]; Protocol Last Admin: 02/05/22 12:08 Dose: Not Given Metoprolol Tartrate (Metoprolol Tartrate 50 Mg Tab) 50 mg PO TID [facility] Morphine Sulfate (Morphine Sulfate 4 Mg/Ml Syringe) 4 mg IVP Q4HR PRN PRN Reason: Pain Last Admin: 02/05/22 06:02 Dose: 4 mg Naloxone HCl (Naloxone 0.4 Mg/Ml 1 Ml Vial) 0.2 mg IV Q2M PRN PRN Reason: Opioid Reversal Physical exam: GENERAL: The patient is sedated and intubated HEENT: Pupils are round and equally reacting to light. EOMI. No scleral icterus. No conjunctival pallor. Normocephalic, atraumatic. No pharyngeal erythema. No thyromegaly. CARDIOVASCULAR: S1 and S2 present. No murmurs, rubs, or gallops. PULMONARY: diminished breath sounds bilaterally with some scattered rhonchi and crackles noted at the bases ABDOMEN: Soft, nontender, nondistended, normoactive bowel sounds. No palpable organomegaly. MUSCULOSKELETAL: No joint swelling or deformity. EXTREMITIES: No cyanosis, clubbing, or pedal edema. generalized edema noted of all extremities NEUROLOGICAL: unable to completely assess, patient is intubated and not following commands, will open eyes SKIN: No rashes. no petechiae. Assessment: cardiac arrest status post CPR Inferior STEMI status post PCI to PDA Acute hypoxic respiratory failure secondary to cardiac arrest, status post intubated and mechanical ventilation Metabolic acidosis secondary to above Transaminitis secondary to above Altered mental status secondary to above, rule out anoxic brain injury History of Deep venous thrombosis on Xarelto at home Hypertension Hyperlipidemia History of GERD History of facial MRSA Full code Plan: This is a 61 years old male who presents with cardiac arrest underwent CPR with MO and is status post stenting as well Continue with intubation and mechanical ventilation with sedation holidays and p ossible cpap mode on vent General surgery consulted for possible peg and trach with failed attempts at weaning Cardiology team on the case as well as pulmonary/critical care team Continue with Zosyn, WBC remains elevated, cultures negative thus far IV steroids discontinued and also lasix due to worsening kidney functions, nephrology following monitor creatinine and urine output and input Continue with aspirin and Plavix GI prophylaxis DVT prophylaxis Full code status currently and family wishes to proceed with peg and trach possibly this week Prognosis is extremely poor and guarded The impression and plan of care has been dictated by Stefania Ruby, Nurse Practitioner as directed. Dr. Patrick MD I have performed a history and examination and MDM of this patient, discussed t he same with the dictator, and agree with the dictator's assessment and plan as written ,documented as a scribe. Based on total visit time, I have performed more than 50% of the visit. Objective - Vital Signs Vital signs: Vital Signs Temp 99.1 F 02/05/22 04:00 Pulse 106 H 02/05/22 07:48 Resp 18 02/05/22 07:00 BP 100/80 02/05/22 07:00 Pulse Ox 95 02/05/22 07:00 FiO2 60 02/05/22 07:29 Intake & Output 02/04/22 02/05/22 02/05/22 18:59 06:59 18:59 Intake Total 870.974 4160.367 Output Total 1905 2060 Balance -1132.662 -734.633 Weight 96.8 kg Intake: IV 192 308 0.9 NaCl 120 130 Piperacillin-Tazobactam 3 100 .375 gm In Sodium Chloride 0.9% 100 ml @ 25 mls/hr IVPB Q12HR [facility] Rx #:[id number] pressure bag 72 78 Intake, IV Titration 478.338 375.367 Amount Calcium Gluconate in NaCl 100 2 gm In Saline 1 100ml. bag @ 100 mls/hr IVPB ONCE ONE Rx#:[id number] Clevidipine Butyrate 25 247.6 228.4 mg In Empty Bag 1 bag @ 1 MG/HR 2 mls/hr IV .Q24H [facility] Rx#:[id number] propofoL 1,000 mg In 130.738 146.967 Empty Bag 1 bag @ 5 MCG/ KG/MIN 2.654 mls/hr IV . Q24H [facility] Rx#:[id number] Tube Feeding 102 442 Output: Urine 1905 2060 Other: Voiding Method Indwelling Catheter Indwelling Catheter ABP, PAP, CO, CI - Last Documented Arterial Blood Pressure 136/53 - Labs CBC & Chem 7: 02/05/22 05:45 02/05/22 05:45 Labs: Abnormal Lab Results - Last 24 Hours (Table) 02/04/22 02/04/22 02/04/22 Range/Units 12:12 17:28 23:25 WBC (3.8-10.6) k/uL RBC (4.30-5.90) m/uL Hct (39.0-53.0) % Neutrophils # (1.3-7.7) k/uL Lymphocytes # (1.0-4.8) k/uL Basophils # (0-0.2) k/uL ABG pO2 (83-108) mmHg ABG O2 Saturation (94-97) % Carbon Dioxide (22-30) mmol/L BUN (9-20) mg/dL Creatinine (0.66-1.25) mg/dL Glucose (74-99) mg/dL POC Glucose (mg/dL) 143 H 156 H 142 H (70-110) mg/dL Calcium (8.4-10.2) mg/dL 02/05/22 02/05/22 02/05/22 Range/Units 05:41 05:45 05:45 WBC 40.0 H (3.8-10.6) k/uL RBC 3.89 L (4.30-5.90) m/uL Hct 38.6 L (39.0-53.0) % Neutrophils # 37.1 H (1.3-7.7) k/uL Lymphocytes # 0.9 L (1.0-4.8) k/uL Basophils # 0.5 H (0-0.2) k/uL ABG pO2 57 L* (83-108) mmHg ABG O2 Saturation 87.2 L (94-97) % Carbon Dioxide 20 L (22-30) mmol/L BUN 188 H* (9-20) mg/dL Creatinine 5.46 H (0.66-1.25) mg/dL Glucose 130 H (74-99) mg/dL POC Glucose (mg/dL) (70-110) mg/dL Calcium 7.0 L (8.4-10.2) mg/dL 02/05/22 Range/Units 06:35 WBC (3.8-10.6) k/uL RBC (4.30-5.90) m/uL Hct (39.0-53.0) % Neutrophils # (1.3-7.7) k/uL Lymphocytes # (1.0-4.8) k/uL Basophils # (0-0.2) k/uL ABG pO2 (83-108) mmHg ABG O2 Saturation (94-97) % Carbon Dioxide (22-30) mmol/L BUN (9-20) mg/dL Creatinine (0.66-1.25) mg/dL Glucose (74-99) mg/dL POC Glucose (mg/dL) 147 H (70-110) mg/dL Calcium (8.4-10.2) mg/dL Microbiology - Last 24 Hours (Table) 02/03/22 12:20 Gram Stain - Final Sputum Sputum Culture - Final
[2022-02-06] MEDS: NOREPINEPHRINE 4 MG in SODIUM CHLORIDE 0.9% 250 ML IV SCH ×2 (03:30→08:49)
[2022-02-06] MEDS: IPRATROPIUM-ALBUTEROL 3 ML NEB INHALATION SCH ×5 (04:37→19:08)
[2022-02-06 05:54] LABS: Calcium 7.2 mg/dL (8.4-10.2)
[2022-02-06 06:11] LABS: ABG Base Excess -9.6 mmol/L; ABG HCO3 17 mmol/L (21-25); ABG Oxygen Saturation 88.3 % (94-97); ABG PCO2 37 mmHg (35-45); ABG PH 7.28 (7.35-7.45); ABG PO2 63 mmHg (83-108); ABG TCO2 18 mmol/L (19-24); Allen Test Performed? Yes
[2022-02-06 06:16] LABS: Potassium 6.1 mmol/L (3.5-5.1)
[2022-02-06 06:19] LABS: HCT 36.6 % (39.0-53.0); MCH 33.1 pg (25.0-35.0); MCHC 32.7 g/dL (31.0-37.0); MCV 101.2 fL (80.0-100.0); Macrocytosis Slight; Mean Platelet Volume 14.1; Platelet Count 177 k/uL (150-450); RBC 3.62 m/uL (4.30-5.90); RDW 14.5 % (11.5-15.5); WBC 40.5 k/uL (3.8-10.6)
[2022-02-06] MEDS ORDERED: DEXTROSE 50% SYRINGE 50 ML IVP ONE (06:56)
[2022-02-06] MEDS ORDERED: INSULIN REGULAR 100 UNIT/ML VIAL (IV) IV ONE ×3 (06:59→20:12)
[2022-02-06] MEDS ORDERED: SODIUM ZIRCONIUM CYCLOSILICATE 10 GM PACKET PO ONE (06:59)
[2022-02-06] MEDS: DEXTROSE 50% SYRINGE 50 ML IVP STA ×2 (07:07→18:04)
[2022-02-06 07:17] LABS: Band Neutrophils % 16 %; Lymphocytes # (M) 3.24 k/uL (1.0-4.8); Monocytes # (M) 0.81 k/uL (0-1.0); Neutrophils % (M) 75 %; Nucleated Red Blood Cells 0 /100 WBC (0-0); Total Cells Counted 200
[2022-02-06 07:18] LABS: Large Platelets Present
--- NOTE | 2022-02-06 07:57 | XR ---
EXAMINATION TYPE: XR chest 1V portable DATE OF EXAM: 02/06/2022 COMPARISON: Chest x-ray 02/05/2022, CT 02/05/2022 HISTORY: Pneumonia TECHNIQUE: Single frontal view of the chest is obtained. FINDINGS: Endotracheal tube, NG tube, left subclavian central venous catheter are overlying appropri ate and stable positions. No evident pneumothorax. There are overlying artifacts. Cardiac mediastinal silhouette shows a similar appearance. Patchy basilar density is present similar to prior exam. Eli ent is rotated. IMPRESSION: Probable basilar atelectasis, correlate to exclude pneumonia, there is underlying emphys to
[2022-02-06] MEDS ORDERED: SODIUM CHLORIDE 0.9% 1,000 ML IV ONE (08:26)
[2022-02-06] MEDS: FAMOTIDINE 20 MG/2 ML VIAL IV SCH (08:37)
[2022-02-06] MEDS: CHLORHEXIDINE GLUCONATE 15 ML CUP MUCOUS MEM SCH (08:37)
[2022-02-06] MEDS: METOPROLOL TARTRATE 50 MG TAB PO SCH ×2 (08:37→16:49)
[2022-02-06] MEDS: CALCIUM ACETATE 667 MG TAB PO SCH ×3 (08:37→18:31)
[2022-02-06] MEDS: hydrALAZINE HCL 25 MG TAB PO SCH ×3 (08:37→18:02)
[2022-02-06] MEDS ORDERED: HYDROCORTISONE SUCCINATE 100 MG/2 ML VIAL IV STA (08:52)
[2022-02-06] MEDS ORDERED: NOREPINEPHRINE 32 MG in SODIUM CHLORIDE 0.9% 218 ML IV SCH (09:30)
--- NOTE | 2022-02-06 11:07 | P.PN ---
Subjective Progress Note Date: 02/06/22 Principal diagnosis: Respiratory failure. Reevaluated today on 02/02/22, patient remains in the ICU, intubated and mechanically ventilated. Not much is happening compared to the last few days, patient is basically about the same. Patient is intubated mechanically ventilated, he is on assist control rate of 24 volume 500 FiO2 55% PEEP of 8 ABG showed a pO2 of 70 pCO2 36 pH of 7.41. Recent CT of the brain showed left occipital infarct. Patient remains on clevidipine 6 mg per hour remains on propofol at 25 mcg/kg/m he is on vital HVS 54 mL/h patient is also on Zosyn and Lasix 80 mg daily. Patient is receiving free water flushes 300 mL every 4 hours. Neurologically the patient is about the same, opens eyes, but does not follow any instructions to verbal stimuli. Chest x-ray continues show bilateral infiltrates, opacities. WBC count is 29.9 hemoglobin is 11.8 basic metabolic profile continues to show hyponatremia with a sodium of 147 renal profile remains poor with BUN of 145 creatinine 6.69. Nonetheless the patient continues to have fairly good urine output. Liver enzymes are improving ALT is down to 166 AST 470 and alkaline phosphatase is 190 Reevaluated today on 02/03/2022, patient remains in the ICU, intubated and mechanically ventilated. Family members including his daughter at bedside. He is on assist control at 24, volume 500 FiO2 55% PEEP of 8 ABG showed a pO2 of 77 pCO2 38 pH of 7.38. Patient is presently on low dose of propofol at 10 mcg/kg/m she is off norepinephrine but requiring clevidipine 9 mg per hour. His ABG was reviewed and no vent changes were made. His chest x-ray continues to show by basilar opacities consistent with minimal aspiration pneumonia. Renal functioning remains poor although the patient does have good urine output. Being followed by nephrology and again no need for hemodialysis at this point yet. Neurology-orellana the patient is awake, he is able to follow very simple instructions like closing eyes and opening eyes, wiggling toes, but cannot squeeze hands. Patient seems to be generally weak. And his mental status seems to wax and wane on a daily basis. Today I had a long discussion with the family members at bedside, and prepared the family to possibly consider tracheostomy and PEG tube placement unless the neurologist feels that the patient has a very poor quality of life and very poor neurological prognosis than family seems to be agreeable to consider comfort care measures if that is truly the case. Today I suggested that he discuss his neurological status with the neurologist and get an update as far as what he anticipates and what he expects. Reevaluated today on 02/04/2022, patient is basically about the same. Remains intubated and mechanically ventilated. Remains on assist control rate of 24th of volume 500 FiO2 55% PEEP of 8 and I cut down his FiO2 down to 50%. His ABG showed a pO2 of 96 pCO2 37 pH of 7.42. Patient is now on propofol at 25 mcg/kg/m she is also on clevidipine at 10 mg per hour and IV fluid at KVO. He is receiving vital H3 at 34 mL per hour. Patient again is arousable, opens his eyes, but today he is not following any instructions. However the propofol is being decreased further down to fully assess mental status, today he seems to be a bit worse compared to yesterday. Chest x-ray showing improvement in his by basilar infiltrates nonetheless he remains on Zosyn. Apparently the neurologist discussed his condition with the family, and in his note stating that it is not clear and unable to predict the quality of life considering his anoxic brain injury and encephalopathy. Family is willing to consider comfort care measures if the neurologist believes that the quality of life is poor otherwise family is also willing to proceed with tracheostomy and PEG tube feeding if felt that his prognosis is good. I feel that the patient has very poor prognosis and very poor quality of life considering his overall picture Progress note dated 02/05/2022. This is a 61-year-old male who was admitted back on January 28 with a ventricular fibrillation arrest. He came to the ICU on January 28, and was intubated on the same day. The patient remains on the mechanical ventilator. The patient is currently on volume assist control, rate 24, tidal volume 500, FiO2 60%, PEEP of 8. Blood gases show pO2 of 57, pCO2 39, and a pH is 7.37. Those blood gases were done on 50% oxygen. He's currently on propofol at 40 mcg/kg/m, Cleveprex at 11 mg an hour, saline at 20 mL an hour, and vital high protein at 34 mL an hour, which is goal. Today, we will attempt a daily interruption of sedation, and a spontaneous breathing trial. White count 40,000, hemoglobin 13.3, hematocrit 38.6, and platelet count 264,000. Sodium 144, potassium 4.8, chlorides 106, CO2 20, BUN 188, creatinine 5.46, and anion gap 18. Chest x-ray continues to show bilateral infiltrates. Microbiologic studies are thus far negative. Progress note dated 02/06/2022. 61-year-old male who was admitted back on January 28 with ventricular fibrillation arrest. He came to the intensive care unit on January 28. He was intubated on the same day. He remains on the mechanical ventilator. Yesterday, we did a daily interruption of sedation and attempt a spontaneous breathing trial, but the pat ient did very poorly. Hence, surgery was consulted, for tracheostomy and PEG tube placement. Currently, he's on volume assist control, rate 24, tidal volume 500, FiO2 60%, and a PEEP of 8. Blood gases show pO2 of 63, pCO2 37, and pH is 7.28. These blood gases are consistent with mild metabolic acidosis. The patient's getting saline at 20 mL an hour, propofol at 35 mcg/kg/m, and norepinephrine at 17 mcg/m. The patient's getting vital high protein at 10 mL an hour with a goal of 34. The patient was to have a tracheostomy and PEG tube placement today, but apparently the surgeon does not have OR time. White count 40.5, hemoglobin 12, hematocrit 36.6, and platelet count is normal. Sodium 139, potassium 6.1, chlorides 103, CO2 16, anion gap 20, BUN 210, and creatinine 6.20. Cortisol level is 60. Chest x-ray shows bibasilar atelectasis. Objective - Vital Signs Vital signs: Vital Signs Temp 100.1 F H 02/06/22 08:00 Pulse 101 H 02/06/22 10:15 Resp 33 H 02/06/22 10:15 BP 151/62 02/06/22 10:15 Pulse Ox 95 02/06/22 10:15 FiO2 60 02/06/22 10:00 Intake & Output 02/05/22 02/06/22 02/06/22 18:59 06:59 18:59 Intake Total 568.348 351.443 2241.615 Output Total 1020 425 25 Balance -451.652 033.310 2158.615 Weight 96.8 kg 97.3 kg Intake: IV 147 231 7775 0.9 NaCl 321 277 9931 Piperacillin-Tazobactam 3 100 .375 gm In Sodium Chloride 0.9% 100 ml @ 25 mls/hr IVPB Q12HR [facility] Rx #:[id number] pressure bag 66 39 18 Intake, IV Titration 224.348 346.794 339.615 Amount Clevidipine Butyrate 25 112.900 mg In Empty Bag 1 bag @ 1 MG/HR 2 mls/hr IV .Q24H [facility] Rx#:[id number] Norepinephrine 32 mg In 3.724 Sodium Chloride 0.9% 218 ml @ 0.26 MCG/KG/MIN 11. 858 mls/hr IV .Q21H5M [facility] Rx#:[id number] Norepinephrine 4 mg In 263.206 241.154 Sodium Chloride 0.9% 250 ml @ 0.05 MCG/KG/MIN 18. 44 mls/hr IV .[id number] [facility] Rx#:[id number] propofoL 1,000 mg In 111.448 83.588 94.737 Empty Bag 1 bag @ 5 MCG/ KG/MIN 2.654 mls/hr IV . Q24H [facility] Rx#:[id number] Tube Feeding 68 64 10 Other 300 Output: Urine 1020 425 25 Other: Voiding Method Indwelling Catheter Indwelling Catheter ABP, PAP, CO, CI - Last Documented Arterial Blood Pressure 89/56 - Exam No acute distress, sedated, with an orally placed endotracheal tube and NG tube. HEENT examination is grossly unremarkable. Neck supple. Full range of motion. No adenopathy thyromegaly or neck vein distention. Cardiovascular examination reveals regular rhythm rate. S1-S2 normal. No S3 or S4. No discernible murmur noted. Heart sounds are distant, and heart rate is 101 bpm. Lungs reveal bilateral scattered rhonchi. No wheezes. No crackles. Breath sounds are equal bilaterally. Saturations are 95 %. Abdomen soft, with bowel sounds. No masses or tenderness. Extremities are intact. No cyanosis clubbing or edema. Skin is without rash or lesion. Neurologic examination cannot be adequately assessed. - Labs CBC & Chem 7: 02/06/22 05:30 02/06/22 05:30 Labs: Abnormal Lab Results - Last 24 Hours (Table) 02/05/22 02/05/22 02/05/22 Range/Units 05:45 11:46 17:47 WBC (3.8-10.6) k/uL RBC (4.30-5.90) m/uL Hgb (13.0-17.5) gm/dL Hct (39.0-53.0) % MCV (80.0-100.0) fL Neutrophils # (Manual) (1.3-7.7) k/uL ABG pH (7.35-7.45) ABG pO2 (83-108) mmHg ABG HCO3 (21-25) mmol/L ABG Total CO2 (19-24) mmol/L ABG O2 Saturation (94-97) % Potassium (3.5-5.1) mmol/L Carbon Dioxide (22-30) mmol/L BUN (9-20) mg/dL Creatinine (0.66-1.25) mg/dL POC Glucose (mg/dL) 123 H 137 H (70-110) mg/dL Calcium (8.4-10.2) mg/dL Procalcitonin 7.60 H (0.02-0.09) ng/mL 02/06/22 02/06/22 02/06/22 Range/Units 05:30 05:30 06:03 WBC 40.5 H (3.8-10.6) k/uL RBC 3.62 L (4.30-5.90) m/uL Hgb 12.0 L (13.0-17.5) gm/dL Hct 36.6 L (39.0-53.0) % MCV 101.2 H (80.0-100.0) fL Neutrophils # (Manual) 36.80 H (1.3-7.7) k/uL ABG pH 7.28 L (7.35-7.45) ABG pO2 63 L (83-108) mmHg ABG HCO3 17 L (21-25) mmol/L ABG Total CO2 18 L (19-24) mmol/L ABG O2 Saturation 88.3 L (94-97) % Potassium 6.1 H* (3.5-5.1) mmol/L Carbon Dioxide 16 L (22-30) mmol/L BUN 210 H* (9-20) mg/dL Creatinine 6.20 H (0.66-1.25) mg/dL POC Glucose (mg/dL) (70-110) mg/dL Calcium 7.2 L (8.4-10.2) mg/dL Procalcitonin (0.02-0.09) ng/mL Microbiology - Last 24 Hours (Table) 02/03/22 12:20 Gram Stain - Final Sputum Sputum Culture - Final Assessment and Plan Assessment: Acute hypoxemic respiratory failure, secondary to ventricular fibrillation arrest, on January 28, status post intubation and mechanical ventilation, since. The patient has had failure to progress and failure to wean from mechanical v entilation, hence, tracheostomy tube and PEG tube is requested. Status post cardiac arrest with ventricular fibrillation, and cardioversion, with acute inferior wall myocardial infarction, and stenting of the PDA. Paroxysmal atrial fibrillation. Anion gap metabolic acidosis. Acute kidney injury. Tobacco dependence syndrome. Prior history of DVT. Possible aspiration pneumonia. Shock liver, status post cardiac arrest. Possible anoxic brain injury, status post arrest. History of underlying COPD. History of chronic low back pain. Previous history of colostomy with reversal. Plan: Plan dated 02/05/2022. The patient remains on mechanical ventilator. The plan today is to try a daily interruption of sedation, and possibly a spontaneous breathing trial. If the patient does poorly, have the surgeon see him for a tracheostomy and PEG tube placement. We continue on GI and DVT prophylaxis, and treatment of his elevated blood pressure, with Cleveprex. The patient will continue on tube feeds as well. The patient continues on antibiotics, empirically. The patient is obviously quite ill. We will continue to follow. Prognosis is guarded. Recommendations will be made, where appropriate. Plan dated 02/06/2022. We've asked surgery to see the patient about a tracheostomy tube and PEG tube. The patient's Zosyn has been discontinued. The patient is currently on norepinephrine at 17 mcg/m. The patient is also on propofol, for sedation. The patient did fail his daily interruption of sedation and spontaneous breathing trial yesterday. We will continue to follow make recommendations where appropriate. Labs, x-rays, medications are all reviewed. Prognosis is certainly guarded in this patient. Time with Patient: Greater than 30
--- NOTE | 2022-02-06 12:30 | P.PN ---
Subjective Progress Note Date: 02/06/22 CHIEF COMPLAINT: Cardiac arrest HISTORY OF PRESENT ILLNESS: Patient remains in the ICU. He has had worsening hypotension and required to be placed on Levophed. Yesterday, patient did poorly on his weaning trials. Patient's potassium is elevated at 6.1. Patient had worsening kidney function. Nephrology is following in planning on starting hemodialysis tomorrow. Patient did have a temp of 100.1 this AM. WBC is 40.5 a she B12 platelets 177 sodium 139 potassium 6.1 BUN to 10 creatinine 6.20 PHYSICAL EXAM: VITAL SIGNS: Reviewed. GENERAL: Well-developed in no acute distress. HEENT: No sclera icterus. Extraocular movements grossly intact. Moist buccal mucosa. Head is atraumatic, normocephalic. ABDOMEN: Soft. Distended. NEUROLOGIC: Intubated and sedated ASSESSMENT: 1. Acute hypoxic respiratory failure 2. Severe protein calorie malnutrition 3. Cardiac arrest with ventricle fibrillation 4. Acute inferior wall myocardial infarction status post stenting of the PDA 5. Anoxic brain injury 6. hyperkalemia PLAN: -Cancel tracheostomy and PEG tube placement for today due to potassium 6.1 and worsening kidney function -Continue to monitor -Further recommendations forthcoming per surgeon about rescheduling tracheostomy and PEG tube placement -Resume Plavix and tube feeds for today -Continue ICU management Physician Design Release Engineer note has been reviewed by physician. Signing provider agrees with the documented findings, assessment, and plan of care. I have personally seen and examined the patient, reviewed the BARREL RIFLER OPERATOR /PAs history, exam and MDM and agree with the assessment and plan as written. Based on total visit time, I have performed more than 50% of the visit. As above: Patient was tentatively scheduled for tracheostomy and PEG tube placement today. Unfortunately the patient has become more unstable. He is now on pressors. Blood pressure has been marginal. Patient has significant hyperkalemia and vascular surgery are placing a dialysis catheter today. We will hold on the tracheostomy and PEG tube placement until clinically more stable. I will tentatively put this back on for 02/08. We'll follow closely. Objective - Vital Signs Vital signs: Vital Signs Temp 100.1 F H 02/06/22 08:00 Pulse 96 02/06/22 11:55 Resp 36 H 02/06/22 11:45 BP 115/66 02/06/22 11:45 Pulse Ox 95 02/06/22 11:45 FiO2 60 02/06/22 11:39 Intake & Output 02/05/22 02/06/22 02/06/22 18:59 06:59 18:59 Intake Total 568.348 555.999 3783.914 Output Total 1020 425 25 Balance -451.652 022.476 9310.914 Weight 96.8 kg 97.3 kg Intake: IV 744 810 8201 0.9 NaCl 035 211 7650 Piperacillin-Tazobactam 3 100 .375 gm In Sodium Chloride 0.9% 100 ml @ 25 mls/hr IVPB Q12HR [facility] Rx #:[id number] pressure bag 66 39 21 Intake, IV Titration 224.348 346.794 342.914 Amount Clevidipine Butyrate 25 112.900 mg In Empty Bag 1 bag @ 1 MG/HR 2 mls/hr IV .Q24H [facility] Rx#:[id number] Norepinephrine 32 mg In 7.023 Sodium Chloride 0.9% 218 ml @ 0.26 MCG/KG/MIN 11. 858 mls/hr IV .Q21H5M [facility] Rx#:[id number] Norepinephrine 4 mg In 263.206 241.154 Sodium Chloride 0.9% 250 ml @ 0.05 MCG/KG/MIN 18. 44 mls/hr IV .[id number] [facility] Rx#:[id number] propofoL 1,000 mg In 111.448 83.588 94.737 Empty Bag 1 bag @ 5 MCG/ KG/MIN 2.654 mls/hr IV . Q24H [facility] Rx#:[id number] Tube Feeding 68 64 20 Other 300 Output: Urine 1020 425 25 Other: Voiding Method Indwelling Catheter Indwelling Catheter ABP, PAP, CO, CI - Last Documented Arterial Blood Pressure 67/53 - Labs CBC & Chem 7: 02/06/22 05:30 02/06/22 05:30 Labs: Abnormal Lab Results - Last 24 Hours (Table) 02/05/22 02/05/22 02/06/22 Range/Units 05:45 17:47 05:30 WBC 40.5 H (3.8-10.6) k/uL RBC 3.62 L (4.30-5.90) m/uL Hgb 12.0 L (13.0-17.5) gm/dL Hct 36.6 L (39.0-53.0) % MCV 101.2 H (80.0-100.0) fL Neutrophils # (Manual) 36.80 H (1.3-7.7) k/uL ABG pH (7.35-7.45) ABG pO2 (83-108) mmHg ABG HCO3 (21-25) mmol/L ABG Total CO2 (19-24) mmol/L ABG O2 Saturation (94-97) % Potassium (3.5-5.1) mmol/L Carbon Dioxide (22-30) mmol/L BUN (9-20) mg/dL Creatinine (0.66-1.25) mg/dL POC Glucose (mg/dL) 137 H (70-110) mg/dL Calcium (8.4-10.2) mg/dL Procalcitonin 7.60 H (0.02-0.09) ng/mL 02/06/22 02/06/22 Range/Units 05:30 06:03 WBC (3.8-10.6) k/uL RBC (4.30-5.90) m/uL Hgb (13.0-17.5) gm/dL Hct (39.0-53.0) % MCV (80.0-100.0) fL Neutrophils # (Manual) (1.3-7.7) k/uL ABG pH 7.28 L (7.35-7.45) ABG pO2 63 L (83-108) mmHg ABG HCO3 17 L (21-25) mmol/L ABG Total CO2 18 L (19-24) mmol/L ABG O2 Saturation 88.3 L (94-97) % Potassium 6.1 H* (3.5-5.1) mmol/L Carbon Dioxide 16 L (22-30) mmol/L BUN 210 H* (9-20) mg/dL Creatinine 6.20 H (0.66-1.25) mg/dL POC Glucose (mg/dL) (70-110) mg/dL Calcium 7.2 L (8.4-10.2) mg/dL Procalcitonin (0.02-0.09) ng/mL Microbiology - Last 24 Hours (Table) 02/03/22 12:20 Gram Stain - Final Sputum Sputum Culture - Final
--- NOTE | 2022-02-06 13:08 | P.PN ---
Subjective Patient is seen for follow-up for acute kidney injury. He is currently on the vent Last night patient became hypotensive and is currently maintained on levo fed. Urine output has dropped to about 10 mL an hour. Serum creatinine increased to 6.2 mg/dL with a BUN of 210. Potassium was also elevated at 6.1 today. Renal replacement therapy discussed with patient's family and at this time it appears that he would like to proceed with that. Patient is also scheduled for trach and PEG today. Objective - Vital Signs Vital signs: Vital Signs Temp 100.1 F H 02/06/22 08:00 Pulse 96 02/06/22 11:55 Resp 36 H 02/06/22 11:45 BP 115/66 02/06/22 11:45 Pulse Ox 95 02/06/22 11:45 FiO2 60 02/06/22 11:39 Intake & Output 02/05/22 02/06/22 02/06/22 18:59 06:59 18:59 Intake Total 568.348 953.891 4290.914 Output Total 1020 425 35 Balance -451.652 121.796 9081.914 Weight 96.8 kg 97.3 kg Intake: IV 556 119 0449 0.9 NaCl 030 811 3658 Piperacillin-Tazobactam 3 100 .375 gm In Sodium Chloride 0.9% 100 ml @ 25 mls/hr IVPB Q12HR [facility] Rx #:[id number] pressure bag 66 39 24 Intake, IV Titration 224.348 346.794 342.914 Amount Clevidipine Butyrate 25 112.900 mg In Empty Bag 1 bag @ 1 MG/HR 2 mls/hr IV .Q24H [facility] Rx#:[id number] Norepinephrine 32 mg In 7.023 Sodium Chloride 0.9% 218 ml @ 0.26 MCG/KG/MIN 11. 858 mls/hr IV .Q21H5M [facility] Rx#:[id number] Norepinephrine 4 mg In 263.206 241.154 Sodium Chloride 0.9% 250 ml @ 0.05 MCG/KG/MIN 18. 44 mls/hr IV .[id number] [facility] Rx#:[id number] propofoL 1,000 mg In 111.448 83.588 94.737 Empty Bag 1 bag @ 5 MCG/ KG/MIN 2.654 mls/hr IV . Q24H [facility] Rx#:[id number] Tube Feeding 68 64 30 Other 600 Output: Urine 1020 425 35 Other: Voiding Method Indwelling Catheter Indwelling Catheter ABP, PAP, CO, CI - Last Documented Arterial Blood Pressure 67/53 - Exam Patient is sedated and on the vent He remains intubated Examination of the heart S1 and S2 Examination of the lungs bilateral breath sounds are heard Abdomen is soft nontender Examination of the lower extremities shows no significant edema. ALUMINUM SIDING MECHANIC exam cannot be performed - Labs CBC & Chem 7: 02/06/22 05:30 02/06/22 05:30 Labs: Abnormal Lab Results - Last 24 Hours (Table) 02/05/22 02/05/22 02/06/22 Range/Units 05:45 17:47 05:30 WBC 40.5 H (3.8-10.6) k/uL RBC 3.62 L (4.30-5.90) m/uL Hgb 12.0 L (13.0-17.5) gm/dL Hct 36.6 L (39.0-53.0) % MCV 101.2 H (80.0-100.0) fL Neutrophils # (Manual) 36.80 H (1.3-7.7) k/uL ABG pH (7.35-7.45) ABG pO2 (83-108) mmHg ABG HCO3 (21-25) mmol/L ABG Total CO2 (19-24) mmol/L ABG O2 Saturation (94-97) % Potassium (3.5-5.1) mmol/L Carbon Dioxide (22-30) mmol/L BUN (9-20) mg/dL Creatinine (0.66-1.25) mg/dL POC Glucose (mg/dL) 137 H (70-110) mg/dL Calcium (8.4-10.2) mg/dL Procalcitonin 7.60 H (0.02-0.09) ng/mL 02/06/22 02/06/22 Range/Units 05:30 06:03 WBC (3.8-10.6) k/uL RBC (4.30-5.90) m/uL Hgb (13.0-17.5) gm/dL Hct (39.0-53.0) % MCV (80.0-100.0) fL Neutrophils # (Manual) (1.3-7.7) k/uL ABG pH 7.28 L (7.35-7.45) ABG pO2 63 L (83-108) mmHg ABG HCO3 17 L (21-25) mmol/L ABG Total CO2 18 L (19-24) mmol/L ABG O2 Saturation 88.3 L (94-97) % Potassium 6.1 H* (3.5-5.1) mmol/L Carbon Dioxide 16 L (22-30) mmol/L BUN 210 H* (9-20) mg/dL Creatinine 6.20 H (0.66-1.25) mg/dL POC Glucose (mg/dL) (70-110) mg/dL Calcium 7.2 L (8.4-10.2) mg/dL Procalcitonin (0.02-0.09) ng/mL Microbiology - Last 24 Hours (Table) 02/05/22 10:37 Blood Culture - Preliminary Blood No Growth after 24 hours 02/05/22 10:37 Blood Culture - Preliminary Blood No Growth after 24 hours 02/03/22 12:20 Gram Stain - Final Sputum Sputum Culture - Final Assessment and Plan Assessment: 1. Acute kidney injury ATN following cardiac arrest. Baseline creatinine around 1 and peaked at 6.69, currently improving and down to 5.46. Patient was nonoliguric but currently oliguric since last night with development of hypotension. Patient is also hyperkalemic therefore we will proceed with renal replacement therapy. B UN is disproportionately elevated associated with steroids, hypercatabolic state and recent diuresis. 2. Status post V. fib/arrest on 02/24/2022 3. Coronary artery disease status post right PDA stenting on 02/24/2022 4. Shock liver 5. Possible aspiration pneumonia, maintained on antibiotics 6. Anoxic brain injury being followed by neurology 7. Metabolic acidosis associated with acute kidney injury, IV fluids and lactic acidosis currently improved 8. Hyperphosphatemia associated with acute kidney injury maintained on PhosLo 9. Volume overload status post diuresis, improved 10. Hypernatremia currently improved 11. Hyperkalemia associated with acute kidney injury status post treatment with insulin and D50 and a dose of lokelma. Plan: Proceed with renal replacement therapy. Consult vascular surgery and we will plan for hemodialysis in a.m. a less than a serum potassium is worse today on repeat labs.
[2022-02-06 13:37] LABS: Glucose,Whole Blood 76 mg/dL (70-110)
[2022-02-06] MEDS: CLOPIDOGREL 75 MG TAB PO SCH (13:40)
[2022-02-06] MEDS: ASPIRIN 81 MG PO SCH (13:40)
--- NOTE | 2022-02-06 13:46 | P.GSCN ---
History of Present Illness History of present illness: 61-year-old gentleman patient was consulted for placement of urgent dialysis catheter patient is an uric serum creatinine is 6.2 patient has has been intubated patient had we feel with cardiac arrest patient also has a anoxic brain injury Patient was seen in the room patient has been intubated is likely patient will go for tracheostomy graft Abdomen soft nontender Femorals are 1+ bilateral plan is placement of a dialysis catheter risk and complication discussed Past Medical History Past Medical History: Chest Pain / Angina, COPD, Deep Vein Thrombosis (DVT), GERD/Reflux, Hyperlipidemia, Hypertension, Myocardial Infarction (MA), Osteoarthritis (OA) Additional Past Medical History / Comment(s): History of hepatitis A, chronic pain, gout, "kidneys shut down x2 when sick". Back pain, TIA 2009 Last Myocardial Infarction Date:: 1999 History of Any Multi-Drug Resistant Organisms: MRSA Year Discovered:: 2015 MDRO Source:: face MRSA Past Surgical History: Bowel Resection, Heart Catheterization With Stent, Hernia Repair, Orthopedic Surgery Additional Past Surgical History / Comment(s): Shoulder surgery, hernia, cataracts, pain clinic procedures, colostomy. right testicle removed. Past Anesthesia/Blood Transfusion Reactions: No Reported Reaction Date of Last Stent Placement:: 1999 Past Psychological History: Anxiety, Depression Smoking Status: Former smoker Past Alcohol Use History: Daily Past Drug Use History: None Reported - Past Family History Mother Family Medical History: Cancer, Myocardial Infarction (MA) Additional Family Medical History / Comment(s): Mother had unknown type of cancer. She of a MA at the age of 68yrs. Father Family Medical History: Myocardial Infarction (MA) Additional Family Medical History / Comment(s): Father from his heart "expl oding" at the age of 58 yrs. Sister(s) Family Medical History: Cancer Additional Family Medical History / Comment(s): Sisters x2 Medications and Allergies Home Medications Medication Instructions Recorded Confirmed Type Furosemide [Lasix] 40 mg PO BID #60 tab 07/23/20 01/30/22 Rx Albuterol Sulfate [Ventolin HFA] 1 - 2 puff INHALATION RT-Q6H PRN 07/21/21 01/30/22 History Metoprolol Tartrate [Lopressor] 100 mg PO BID-W/MEALS 12/11/21 01/30/22 History Nitroglycerin Sl Tabs [Nitrostat] 0.4 mg SL Q5M PRN 12/11/21 01/30/22 History Sertraline [Zoloft] 50 mg PO DAILY 12/11/21 01/28/22 History Atorvastatin [Lipitor] 80 mg PO HS 90 Days #90 tab 12/12/21 01/30/22 Rx Isosorbide Mononitrate ER [Imdur] 60 mg PO DAILY 01/28/22 01/30/22 History Rivaroxaban [Xarelto] 20 mg PO W/SUPPER 01/28/22 01/30/22 History cloNIDine HCL [Catapres] 0.2 mg PO BID 01/28/22 01/30/22 History lisinopriL 40 mg PO DAILY 01/28/22 01/30/22 History amLODIPine [Norvasc] 10 mg PO DAILY 01/30/22 01/30/22 History Allergies Allergy/AdvReac Type Severity Reaction Status Date / Time No Known Allergies Allergy Verified 01/28/22 00:56 Surgical - Exam Vital Signs Temp Pulse Resp BP Pulse Ox 97.7 F 97 20 186/129 85 L 01/28/22 00:49 01/28/22 00:49 01/28/22 00:49 01/28/22 00:49 01/28/22 00:49 Results - Labs 02/06/22 05:30 02/06/22 05:30 Abnormal Lab Results - Last 24 Hours (Table) 02/05/22 02/05/22 02/06/22 Range/Units 05:45 17:47 05:30 WBC 40.5 H (3.8-10.6) k/uL RBC 3.62 L (4.30-5.90) m/uL Hgb 12.0 L (13.0-17.5) gm/dL Hct 36.6 L (39.0-53.0) % MCV 101.2 H (80.0-100.0) fL Neutrophils # (Manual) 36.80 H (1.3-7.7) k/uL ABG pH (7.35-7.45) ABG pO2 (83-108) mmHg ABG HCO3 (21-25) mmol/L ABG Total CO2 (19-24) mmol/L ABG O2 Saturation (94-97) % Potassium (3.5-5.1) mmol/L Carbon Dioxide (22-30) mmol/L BUN (9-20) mg/dL Creatinine (0.66-1.25) mg/dL POC Glucose (mg/dL) 137 H (70-110) mg/dL Calcium (8.4-10.2) mg/dL Procalcitonin 7.60 H (0.02-0.09) ng/mL 02/06/22 02/06/22 Range/Units 05:30 06:03 WBC (3.8-10.6) k/uL RBC (4.30-5.90) m/uL Hgb (13.0-17.5) gm/dL Hct (39.0-53.0) % MCV (80.0-100.0) fL Neutrophils # (Manual) (1.3-7.7) k/uL ABG pH 7.28 L (7.35-7.45) ABG pO2 63 L (83-108) mmHg ABG HCO3 17 L (21-25) mmol/L ABG Total CO2 18 L (19-24) mmol/L ABG O2 Saturation 88.3 L (94-97) % Potassium 6.1 H* (3.5-5.1) mmol/L Carbon Dioxide 16 L (22-30) mmol/L BUN 210 H* (9-20) mg/dL Creatinine 6.20 H (0.66-1.25) mg/dL POC Glucose (mg/dL) (70-110) mg/dL Calcium 7.2 L (8.4-10.2) mg/dL Procalcitonin (0.02-0.09) ng/mL Microbiology - Last 24 Hours (Table) 02/05/22 10:37 Blood Culture - Preliminary Blood No Growth after 24 hours 02/05/22 10:37 Blood Culture - Preliminary Blood No Growth after 24 hours Diabetes panel 02/06/22 Range/Units 05:30 Sodium 139 (137-145) mmol/L Potassium 6.1 H* (3.5-5.1) mmol/L Chloride 103 (98-107) mmol/L Carbon Dioxide 16 L (22-30) mmol/L BUN 210 H* (9-20) mg/dL Creatinine 6.20 H (0.66-1.25) mg/dL Glucose 99 (74-99) mg/dL Calcium 7.2 L (8.4-10.2) mg/dL Calcium panel 02/06/22 Range/Units 05:30 Calcium 7.2 L (8.4-10.2) mg/dL Pituitary panel 02/06/22 Range/Units 05:30 Sodium 139 (137-145) mmol/L Potassium 6.1 H* (3.5-5.1) mmol/L Chloride 103 (98-107) mmol/L Carbon Dioxide 16 L (22-30) mmol/L BUN 210 H* (9-20) mg/dL Creatinine 6.20 H (0.66-1.25) mg/dL Glucose 99 (74-99) mg/dL Calcium 7.2 L (8.4-10.2) mg/dL Adrenal panel 02/06/22 Range/Units 05:30 Sodium 139 (137-145) mmol/L Potassium 6.1 H* (3.5-5.1) mmol/L Chloride 103 (98-107) mmol/L Carbon Dioxide 16 L (22-30) mmol/L BUN 210 H* (9-20) mg/dL Creatinine 6.20 H (0.66-1.25) mg/dL Glucose 99 (74-99) mg/dL Calcium 7.2 L (8.4-10.2) mg/dL
--- NOTE | 2022-02-06 13:48 | P.PCN ---
Description of Procedure: Preoperative diagnoses is acute kidney injury renal failure Postoperative same Procedure ultrasound-guided dialysis catheter placement right femoral approach right groin were prepped and draped applied sterile manner 1% lidocaine for infected groin area ultrasound-guided micropuncture introducer right common femoral vein micropuncture guidewire was passed and 4-Paraguayan dilator was advanced over the guidewire then we passed a regular guidewire and we placed a dilator and then dialysis catheter advanced. The guidewire guidewire was removed flushed with heparin saline and Hep-Lock secured with 3-0 nylon dressing applied patient tolerated the procedure well
--- NOTE | 2022-02-06 14:23 | PCN ---
PROCEDURE NOTE PULMONARY/CRITICAL CARE PROCEDURE NOTE: RIGHT BRACHIAL ART LINE: PREOP DIAGNOSIS: Frequent blood draws and blood gas monitoring hypotension. POSTOP DIAGNOSIS: Frequent blood draws and blood gas monitoring hypotension. OPERATORS: Dr. Vila and Dr. Russell. ARTERIAL LINE PLACEMENT: Indications: Hemodynamic monitoring. A time-out was completed verifying correct patient, procedure, site, positioning, and implant(s) or special equipment if applicable. Rao's test was performed to ensure adequate perfusion. The patient's right arm was prepped and draped in sterile fashion. 1% Lidocaine was used to anesthetize the area. An 18G Arrow arterial line was introduced into the brachial artery. The catheter was threaded over the guide wire and the needle was removed with appropriate pulsatile blood return. Blood loss was minimal. The catheter was then sutured in place to the skin and a sterile dressing applied. Perfusion to the extremity distal to the point of catheter insertion was checked and found to be adequate. The patient tolerated the procedure well and there were no complications. Site was the right brachial artery. There was no immediate complication. There was good blood return and waveform. The patient tolerated the procedure well. The catheter was sutured in place. Sterile dressings were applied. There was no immediate complication. MMODL / IJN: [id number] /
[2022-02-06 14:33] VITALS: BMI 33.5
[2022-02-06] MEDS ORDERED: CALCIUM GLUCONATE IN NACL 1 GM in SALINE 1 100ML.BAG IVPB STA (14:46)
[2022-02-06] MEDS ORDERED: DEXTROSE 50% SYRINGE 50 ML IVP STA ×2 (14:48→20:12)
--- NOTE | 2022-02-06 14:56 | P.PN ---
Subjective Progress Note Date: 02/06/22 Patient initially seen by Dr. J Luis Vila. Please refer to his note for details. Patient is a 61-year-old male with cardiac arrest. He was found to have left occipital stroke. Dr. Vila noticed some right-sided weakness on examination and was not sure if it was related to sedation and metabolic abnormality. CT head showed no acute process, although revealed possible subacute hypodensity in the left occipital region. I personally reviewed CT head and agree with the findings. EEG revealed mild encephalopathy. Patient's family members were present today. They mentioned that patient had a cardiac arrest with downtime of over 10 minutes. For the first 5 minutes before EMS arrived, patient's daughter was doing CPR. Then the EMS took over. Patient was doing drugs including Meth per his family members. Patient's urine drug screen was positive for amphetamines, methamphetamine and benzodiazepine. Patient's family mentions that he has history of a stroke before, with no residual deficits. It was years ago. Also has heart problem and arthritis. Objective - Vital Signs Vital signs: Vital Signs Temp 98.2 F 02/06/22 12:00 Pulse 93 02/06/22 13:15 Resp 35 H 02/06/22 13:15 BP 114/60 02/06/22 13:15 Pulse Ox 95 02/06/22 13:15 FiO2 60 02/06/22 13:00 Intake & Output 02/05/22 02/06/22 02/06/22 18:59 06:59 18:59 Intake Total 568.348 876.842 4599.914 Output Total 1020 425 50 Balance -451.652 772.116 8737.914 Weight 96.8 kg 97.3 kg Intake: IV 159 267 3622 0.9 NaCl 922 108 1981 Piperacillin-Tazobactam 3 100 .375 gm In Sodium Chloride 0.9% 100 ml @ 25 mls/hr IVPB Q12HR [facility] Rx #:[id number] pressure bag 66 39 27 Intake, IV Titration 224.348 346.794 342.914 Amount Clevidipine Butyrate 25 112.900 mg In Empty Bag 1 bag @ 1 MG/HR 2 mls/hr IV .Q24H [facility] Rx#:[id number] Norepinephrine 32 mg In 7.023 Sodium Chloride 0.9% 218 ml @ 0.26 MCG/KG/MIN 11. 858 mls/hr IV .Q21H5M [facility] Rx#:[id number] Norepinephrine 4 mg In 263.206 241.154 Sodium Chloride 0.9% 250 ml @ 0.05 MCG/KG/MIN 18. 44 mls/hr IV .[id number] [facility] Rx#:[id number] propofoL 1,000 mg In 111.448 83.588 94.737 Empty Bag 1 bag @ 5 MCG/ KG/MIN 2.654 mls/hr IV . Q24H [facility] Rx#:[id number] Tube Feeding 68 64 50 Other 600 Output: Urine 1020 425 50 Other: Voiding Method Indwelling Catheter Indwelling Catheter ABP, PAP, CO, CI - Last Documented Arterial Blood Pressure 65/49 - Exam On examination patient is a late middle aged male, who is intubated, sedated. Patient is comatose. GCS 3. On cranial nerve examination, pupils are 3 mm, not clearly reactive. Left pupil is surgical from previous cataract surgery. Patient has left eye exotropia. Oculocephalics absent. Corneals slightly present. Patient does not respond to any painful stimuli. Patient's hands are improved bilaterally, left worse than right. There is mottling on the left. Feet are very cold and slightly bluish. Patient is breathing over the ventilator. Patient at present on propofol 35 mcg/mg/m. Patient also on Levophed 25 g. Patient is going to undergo hemodialysis today. Patient has low-grade temperature. - Labs CBC & Chem 7: 02/06/22 05:30 02/06/22 13:34 Labs: Abnormal Lab Results - Last 24 Hours (Table) 02/05/22 02/05/22 02/06/22 Range/Units 05:45 17:47 05:30 WBC 40.5 H (3.8-10.6) k/uL RBC 3.62 L (4.30-5.90) m/uL Hgb 12.0 L (13.0-17.5) gm/dL Hct 36.6 L (39.0-53.0) % MCV 101.2 H (80.0-100.0) fL Neutrophils # (Manual) 36.80 H (1.3-7.7) k/uL ABG pH (7.35-7.45) ABG pO2 (83-108) mmHg ABG HCO3 (21-25) mmol/L ABG Total CO2 (19-24) mmol/L ABG O2 Saturation (94-97) % Potassium (3.5-5.1) mmol/L Carbon Dioxide (22-30) mmol/L BUN (9-20) mg/dL Creatinine (0.66-1.25) mg/dL POC Glucose (mg/dL) 137 H (70-110) mg/dL Calcium (8.4-10.2) mg/dL Procalcitonin 7.60 H (0.02-0.09) ng/mL 02/06/22 02/06/22 Range/Units 05:30 06:03 WBC (3.8-10.6) k/uL RBC (4.30-5.90) m/uL Hgb (13.0-17.5) gm/dL Hct (39.0-53.0) % MCV (80.0-100.0) fL Neutrophils # (Manual) (1.3-7.7) k/uL ABG pH 7.28 L (7.35-7.45) ABG pO2 63 L (83-108) mmHg ABG HCO3 17 L (21-25) mmol/L ABG Total CO2 18 L (19-24) mmol/L ABG O2 Saturation 88.3 L (94-97) % Potassium 6.1 H* (3.5-5.1) mmol/L Carbon Dioxide 16 L (22-30) mmol/L BUN 210 H* (9-20) mg/dL Creatinine 6.20 H (0.66-1.25) mg/dL POC Glucose (mg/dL) (70-110) mg/dL Calcium 7.2 L (8.4-10.2) mg/dL Procalcitonin (0.02-0.09) ng/mL Microbiology - Last 24 Hours (Table) 02/05/22 10:37 Blood Culture - Preliminary Blood No Growth after 24 hours 02/05/22 10:37 Blood Culture - Preliminary Blood No Growth after 24 hours Assessment and Plan Assessment: Anoxic encephalopathy due to cardiac arrest, with a downtime of over 10 minutes, per family members. Today is day #10 postarrest. Toxic metabolic encephalopathy from uremia and medication use (IV propofol) Acute renal failure CT head showed possibility of subacute hypodensity in the left occipital region. Neurological examination is limited because of encephalopathy. Acute cardiac arrest out of the hospital. Unknown exact downtown. Patient was in V. fib and required epinephrine, amiodarone and CPR with 4 defibrillation Acute inferior wall ST segment elevation [place] status post cardiac cath of the PDA Hepatic shock due to cardiac arrest---trending up Acute kidney injury--trending up Proximal atrial fibrillation currently in sinus rhythm History of coronary artery disease status post stenting of the right ICA Previous TIA in 2009 Chronic gout Hepatitis A History of diverticular perforation/colostomy History of DVT Chronic back pain Plan: Patient probably has suffered from significant anoxic encephalopathy, as he continues to be comatose. He has superimposed toxic metabolic encephalopathy due to reasons mentioned above. Patient examination was limited because he is on propofol 35 g per program per minute. Patient has developed hyperkalemia, acute renal failure. Patient be getting hemodialysis today. He is on ASA 81mg daily and Lipitor 80mg daily started by cardiology team. Q2 hour neuro checks. Consider repeating 2D echo because of limitation on the initial. Nephrology team is on board. We'll defer the rest of the medical management to the cardiology primary and ICU team. ICU team is leaning toward Trach. Condition is very guarded at this time.
[2022-02-06 15:50] LABS: Hepatitis B Surface Antigen Nonreactive (Nonreactive)
[2022-02-06 17:54] LABS: Hepatitis B Surface AB- Quant 3.5 mIU/mL; Hepatitis B Surface Antibody Nonreactive (Nonreactive)
[2022-02-06 18:02] LABS: Glucose,Whole Blood 50 mg/dL (70-110)
[2022-02-06 18:02] LABS: Glucose,Whole Blood 29 mg/dL (70-110)
[2022-02-06 18:46] LABS: HCT 32.9 % (39.0-53.0); HGB 10.7 gm/dL (13.0-17.5); Hypochromasia Moderate; MCH 34.1 pg (25.0-35.0); MCHC 32.6 g/dL (31.0-37.0); MCV 104.6 fL (80.0-100.0); Macrocytosis Moderate; Mean Platelet Volume 13.3; Platelet Count 173 k/uL (150-450); RBC 3.15 m/uL (4.30-5.90); RDW 14.7 % (11.5-15.5); WBC 37.6 k/uL (3.8-10.6)
[2022-02-06 19:03] LABS: Calcium 6.8 mg/dL (8.4-10.2)
[2022-02-06] MEDS ORDERED: INSULIN ASPART (NovoLOG) 100 UNIT/ML VIAL SQ SCH (20:15)
[2022-02-06 20:22] VITALS: BP 114/70; PULSE 88; RESP 28; TEMP 97.9
[2022-02-06] MEDS ORDERED: SODIUM ZIRCONIUM CYCLOSILICATE 10 GM PACKET PO SCH (22:00)
--- NOTE | 2022-02-06 23:15 | P.PN ---
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 Elevated lactic acid at 5.0. Creatinine 1.2 and after discussed with the normal limits. Liver enzymes elevated 847 AST and 636 ALT Urinalysis showed 2+ protein and large blood Chest x-ray: No consolidation 02/03/2022 Patient is seen and evaluated in ICU; veins intubated and mechanically ventilated; currently on low-dose propofol; off norepinephrine but requiring clevidipine 9 mg per hour ABG was reviewed and no vent changes were made. His chest x-ray continues to show by basilar opacities consistent with minimal aspiration pneumonia. Renal f unctioning remains poor although the patient does have good urine output. Being followed by nephrology and again no need for hemodialysis at this point yet. Prognosis was discussed with the family members by capture manager service, and prepared the family to possibly consider tracheostomy and PEG tube placement unless the neurologist feels that the patient has a very poor quality of life and very poor neurological prognosis than family seems to be agreeable to consider comfort care measures if that is truly the case. 02/04/2022 Patient seen and evaluated in ICU; remains intubated and mechanically ventilated. Currently on assist control rate of 24th of volume 500 FiO2 55% PEEP of 8 and I cut down his FiO2 down to 50%; ABG showed a pO2 of 96 pCO2 37 pH of 7.42. Patient is now on propofol and clevidipine at 10 mg per hour. -- Patient is arousable, opens his eyes, but today he is not following any instructions. --Chest x-ray showing improvement in his by basilar infiltrates nonetheless he remains on Zosyn. According to capture manager records family is prepared to consider comfort care measures if the neurologist believes that the quality of life is poor otherwise family is also willing to proceed with tracheostomy and PEG tube feeding if felt that his prognosis is good. Patient has very poor prognosis and very poor quality of life considering his overall picture 02/05/2022 Patient is seen in follow-up continues to be in the ICU mechanically intubated and currently on sedation holiday. Patient does open eyes although not following any commands. Multiple medical consultations following and general surgery being consulted for possible peg and trach as he is having difficulty weaning from the vent. Patient continues to require cleviprex. Vent is currently an FI02 of 60%. Chest xray today shows stable bilateral infiltrate and small left pleural effusion. Lasix remains on hold and nephrology following. Creatinine is elevated above 5 although this is improved from yesterday. WBC remains elevated and continued on empiric antibiotics. Patient is currently afebrile and noted generalized edema throughout. 02/06/2022 Patient is evaluated in follow up this morning and continues to have worsening kidney functions and plan is for consult placed to vascular surgery for emergent dialysis catheter placement. Potassium critically elevated as well and being corrected. Patient also noted with some possible GI bleed noted as well and patient was given cortef. General surgery has evaluated the patient and planning for peg and trach soon. WBC remains elevated and patient continues on IV antibiotics. Prognosis is extremely guarded and poor. Patient is afebrile. Patient also having low blood sugars. Patient is also now on pressor support. Review of systems: unable to obtain as patient is currently intubated and sedated Medications reviewed. Physical exam: GENERAL: The patient is sedated and intubated HEENT: Pupils are round and equally reacting to light. EOMI. No scleral icterus. No conjunctival pallor. Normocephalic, atraumatic. No pharyngeal erythema. No thyromegaly. CARDIOVASCULAR: S1 and S2 present. No murmurs, rubs, or gallops. PULMONARY: diminished breath sounds bilaterally with some scattered rhonchi and crackles noted at the bases ABDOMEN: more firm today, nontender, mildly distended, no bowel sounds. No palpable organomegaly. palpable umbilical hernia MUSCULOSKELETAL: No joint swelling or deformity. EXTREMITIES: No cyanosis, clubbing, or pedal edema. generalized edema noted of all extremities NEUROLOGICAL: unable to completely assess, patient is intubated and sedated SKIN: No rashes. no petechiae. Assessment: cardiac arrest status post CPR Inferior STEMI status post PCI to PDA Acute hypoxic respiratory failure secondary to cardiac arrest, status post intubated and mechanical ventilation Acute kidney injury ATN following cardiac arrest with worsening hyperkalemia requiring emergent dialysis catheter placement today Metabolic acidosis secondary to above Transaminitis secondary to above Altered mental status secondary to above, most likely anoxic brain injury status post cardiac arrest History of Deep venous thrombosis on Xarelto at home Hypertension Hyperlipidemia History of GERD History of facial MRSA Full code Plan: This is a 61 years old male who presents with cardiac arrest underwent CPR with DC and is status post stenting as well Patient Continues to be intubated on mechanical ventilation with plans for possible peg and trach with failed attempts at weaning, surgery following Kidney functions worsening and potassium is critically elevated and vascular surgery consulted for emergent dialysis Cardiology team on the case as well as pulmonary/critical care team Continue with Zosyn, WBC remains elevated, cultures negative thus far IV steroids recently discontinued and also lasix due to worsening kidney functions, nephrology following Hemoglobin is dropping and possible GI bleed noted, monitor H&H closely Continue to hold aspirin and Plavix GI prophylaxis DVT prophylaxis Full code status currently and family wishes to proceed with peg and trach possibly this week Prognosis is extremely poor and guarded The impression and plan of care has been dictated by Stefania Ruby, Nurse Practitioner as directed. Dr. Patrick MD I have performed a history and examination and MDM of this patient, discussed the same with the dictator, and agree with the dictator's assessment and plan as written ,documented as a scribe. Based on total visit time, I have performed more than 50% of the visit. Objective - Vital Signs Vital signs: Vital Signs Temp 100.1 F H 02/06/22 08:00 Pulse 104 H 02/06/22 09:12 Resp 30 H 02/06/22 09:12 BP 88/50 02/06/22 08:30 Pulse Ox 94 L 02/06/22 09:12 FiO2 60 02/06/22 08:00 Intake & Output 02/05/22 02/06/22 02/06/22 18:59 06:59 18:59 Intake Total 568.348 034.052 6790.662 Output Total 1020 425 25 Balance -451.652 470.924 1831.662 Weight 96.8 kg 97.3 kg Intake: IV 607 477 3747 0.9 NaCl 126 747 7256 Piperacillin-Tazobactam 3 100 .375 gm In Sodium Chloride 0.9% 100 ml @ 25 mls/hr IVPB Q12HR [facility] Rx #:[id number] pressure bag 66 39 12 Intake, IV Titration 224.348 346.794 226.662 Amount Clevidipine Butyrate 25 112.900 mg In Empty Bag 1 bag @ 1 MG/HR 2 mls/hr IV .Q24H [facility] Rx#:[id number] Norepinephrine 4 mg In 263.206 131.925 Sodium Chloride 0.9% 250 ml @ 0.05 MCG/KG/MIN 18. 44 mls/hr IV .[id number] [facility] Rx#:[id number] propofoL 1,000 mg In 111.448 83.588 94.737 Empty Bag 1 bag @ 5 MCG/ KG/MIN 2.654 mls/hr IV . Q24H [facility] Rx#:[id number] Tube Feeding 68 64 10 Output: Urine 1020 425 25 Other: Voiding Method Indwelling Catheter Indwelling Catheter ABP, PAP, CO, CI - Last Documented Arterial Blood Pressure 106/56 - Labs CBC & Chem 7: 02/06/22 18:20 02/06/22 18:20 Labs: Abnormal Lab Results - Last 24 Hours (Table) 02/05/22 02/05/22 02/05/22 Range/Units 05:45 11:46 17:47 WBC (3.8-10.6) k/uL RBC (4.30-5.90) m/uL Hgb (13.0-17.5) gm/dL Hct (39.0-53.0) % MCV (80.0-100.0) fL Neutrophils # (Manual) (1.3-7.7) k/uL ABG pH (7.35-7.45) ABG pO2 (83-108) mmHg ABG HCO3 (21-25) mmol/L ABG Total CO2 (19-24) mmol/L ABG O2 Saturation (94-97) % Potassium (3.5-5.1) mmol/L Carbon Dioxide (22-30) mmol/L BUN (9-20) mg/dL Creatinine (0.66-1.25) mg/dL POC Glucose (mg/dL) 123 H 137 H (70-110) mg/dL Calcium (8.4-10.2) mg/dL Procalcitonin 7.60 H (0.02-0.09) ng/mL 02/06/22 02/06/22 02/06/22 Range/Units 05:30 05:30 06:03 WBC 40.5 H (3.8-10.6) k/uL RBC 3.62 L (4.30-5.90) m/uL Hgb 12.0 L (13.0-17.5) gm/dL Hct 36.6 L (39.0-53.0) % MCV 101.2 H (80.0-100.0) fL Neutrophils # (Manual) 36.80 H (1.3-7.7) k/uL ABG pH 7.28 L (7.35-7.45) ABG pO2 63 L (83-108) mmHg ABG HCO3 17 L (21-25) mmol/L ABG Total CO2 18 L (19-24) mmol/L ABG O2 Saturation 88.3 L (94-97) % Potassium 6.1 H* (3.5-5.1) mmol/L Carbon Dioxide 16 L (22-30) mmol/L BUN 210 H* (9-20) mg/dL Creatinine 6.20 H (0.66-1.25) mg/dL POC Glucose (mg/dL) (70-110) mg/dL Calcium 7.2 L (8.4-10.2) mg/dL Procalcitonin (0.02-0.09) ng/mL Microbiology - Last 24 Hours (Table) 02/03/22 12:20 Gram Stain - Final Sputum Sputum Culture - Final
--- NOTE | 2022-02-08 12:50 | P.DS ---
Providers Date of admission: 01/28/22 01:39 Expected date of discharge: 02/07/22 Attending physician: Savi Meraz Consults: 01/28/22 01:39 Consult Physician Urgent Consulting Provider: David Lassiter Consult Reason/Comments: Cardiopulmonary arrest with ROSC. Do you want consulting provider notified?: Already Contacted 01/28/22 02:47 Consult Physician Routine Consulting Provider: [facility] Consult Reason/Comments: Post Interventional Patient Do you want consulting provider notified?: Already Contacted 01/28/22 02:50 Consult Physician Routine Consulting Provider: J Luis Vila Consult Reason/Comments: anoxic encephalopathy Do you want consulting provider notified?: Yes, Notify in am 01/30/22 09:16 Consult Physician Urgent Consulting Provider: Wil Andrade Consult Reason/Comments: elevated bun/cr Do you want consulting provider notified?: Yes 02/05/22 13:24 Consult Physician Routine Consulting Provider: Ubaldo Rodriguez Consult Reason/Comments: trach and peg placement Do you want consulting provider notified?: Yes 02/06/22 13:18 Consult Physician Routine Consulting Provider: Bill Rae Consult Reason/Comments: hemodialysis catheter Do you want consulting provider notified?: Already Contacted Primary care physician: Stated None Hospital Course: Preliminary cause of Myocardial Infarction Final diagnosis cardiac arrest status post CPR Inferior STEMI status post PCI to PDA Acute hypoxic respiratory failure secondary to cardiac arrest, status post intubated and mechanical ventilation Acute kidney injury ATN following cardiac arrest with worsening hyperkalemia requiring emergent dialysis catheter placement today Metabolic acidosis secondary to above Transaminitis secondary to above Altered mental status secondary to above, most likely anoxic brain injury status post cardiac arrest History of Deep venous thrombosis on Xarelto at home Hypertension Hyperlipidemia History of GERD History of facial MRSA Full code Discharge disposition Patient has . According to nursing documentation time of was 2049 on 02/06/2022 Hospital course This is a 61-year-old male who was recently admitted with cardiac arrest post CPR along with a STEMI with stenting post-PCI to the PDA and was being closely monitored. Patient also with acute hypoxic respiratory failure requiring mechanical ventilation and intubated and sedated. Patient with difficulty weaning from the vent discussing possible PEG and trach placement although kidney functions continue to worsen and questionable GI bleed occurring. Em ergent hemodialysis catheter placed per nephrology and family following closely for possible comfort measures if hemodialysis did not improve patient's quality of life. PEG and trach were placed on hold due to worsening clinical picture and also having drop in hemoglobin. Patient continued to deteriorate and was found to go into V. fib and was no code and asystole and time of was 2049 with family present on 02/06/2022. Please refer to previous dictations along with director bioinformatics documentation for further HPI. The impression and plan of care has been dictated by Stefania Ruby, Nurse Practitioner as directed. Dr. Patrick MD I have performed a history and examination and MDM of this patient, discussed the same with the dictator, and agree with the dictator's assessment and plan as written ,documented as a scribe. Based on total visit time, I have performed more than 50% of the visit. Patient Condition at Discharge: Poor Plan - Discharge Summary Discharge Rx Participant: Yes New Discharge Prescriptions: No Action Furosemide [Lasix] 40 mg PO BID #60 tab Sertraline [Zoloft] 50 mg PO DAILY Metoprolol Tartrate [Lopressor] 100 mg PO BID-W/MEALS Rivaroxaban [Xarelto] 20 mg PO W/SUPPER amLODIPine [Norvasc] 10 mg PO DAILY Albuterol Sulfate [Ventolin HFA] 1 - 2 puff INHALATION RT-Q6H PRN PRN Reason: Shortness Of Breath Nitroglycerin Sl Tabs [Nitrostat] 0.4 mg SL Q5M PRN PRN Reason: Chest Pain Atorvastatin [Lipitor] 80 mg PO HS 90 Days #90 tab Isosorbide Mononitrate ER [Imdur] 60 mg PO DAILY lisinopriL 40 mg PO DAILY cloNIDine HCL [Catapres] 0.2 mg PO BID Discharge Medication List Furosemide [Lasix] 40 mg PO BID #60 tab 07/23/20 [Rx] Albuterol Sulfate [Ventolin HFA] 1 - 2 puff INHALATION RT-Q6H PRN 07/21/21 [History] Metoprolol Tartrate [Lopressor] 100 mg PO BID-W/MEALS 12/11/21 [History] Nitroglycerin Sl Tabs [Nitrostat] 0.4 mg SL Q5M PRN 12/11/21 [History] Sertraline [Zoloft] 50 mg PO DAILY 12/11/21 [History] Atorvastatin [Lipitor] 80 mg PO HS 90 Days #90 tab 12/12/21 [Rx] Isosorbide Mononitrate ER [Imdur] 60 mg PO DAILY 01/28/22 [History] Rivaroxaban [Xarelto] 20 mg PO W/SUPPER 01/28/22 [History] cloNIDine HCL [Catapres] 0.2 mg PO BID 01/28/22 [History] lisinopriL 40 mg PO DAILY 01/28/22 [History] amLODIPine [Norvasc] 10 mg PO DAILY 01/30/22 [History] Follow up Appointment(s)/Referral(s): None,Stated [Primary Care Provider] - 1-2 days Discharge Disposition: - Preliminary Cause of Preliminary Cause of : myocardial infarction
== END 2022-02-06 21:54 | disposition expired | DRG 246 ==
LOC: EC 00:47 → 2SICU 01:39
PROVIDERS: ADMIT Hospitalist; ATTEND Hospitalist
PROC: 02HV33Z Insertion of Infusion Device into Superior Vena Cava, Percutaneous Approach (ICD-10-PCS; 2022-01-28)
PROC: 4A133B1 Monitoring of Arterial Pressure, Peripheral, Percutaneous Approach (ICD-10-PCS; 2022-01-28)
PROC: 4A133J1 Monitoring of Arterial Pulse, Peripheral, Percutaneous Approach (ICD-10-PCS; 2022-01-28)
PROC: 4A023N7 Measurement of Cardiac Sampling and Pressure, Left Heart, Percutaneous Approach (ICD-10-PCS; 2022-01-28)
PROC: B2111ZZ Fluoroscopy of Multiple Coronary Arteries using Low Osmolar Contrast (ICD-10-PCS; 2022-01-28)
PROC: 5A1955Z Respiratory Ventilation, Greater than 96 Consecutive Hours (ICD-10-PCS; 2022-01-28)
PROC: 027034Z Dilation of Coronary Artery, One Artery with Drug-eluting Intraluminal Device, Percutaneous Approach (ICD-10-PCS; principal; 2022-01-28 01:33)
PROC: 03HY32Z Insertion of Monitoring Device into Upper Artery, Percutaneous Approach (ICD-10-PCS; 2022-01-28 01:33)
PROC: 05H633Z Insertion of Infusion Device into Left Subclavian Vein, Percutaneous Approach (ICD-10-PCS; 2022-02-06)
PROC: 5A1D70Z Performance of Urinary Filtration, Intermittent, Less than 6 Hours Per Day (ICD-10-PCS; 2022-02-06)
PROC: 03HY32Z Insertion of Monitoring Device into Upper Artery, Percutaneous Approach (ICD-10-PCS; 2022-02-06)
PROC: 4A133B1 Monitoring of Arterial Pressure, Peripheral, Percutaneous Approach (ICD-10-PCS; 2022-02-06)
PROC: 4A133J1 Monitoring of Arterial Pulse, Peripheral, Percutaneous Approach (ICD-10-PCS; 2022-02-06)
DX: I21.19 ST elevation (STEMI) myocardial infarction involving other coronary artery of inferior wall (principal); E43 Unspecified severe protein-calorie malnutrition; J96.01 Acute respiratory failure with hypoxia; K72.00 Acute and subacute hepatic failure without coma; N17.0 Acute kidney failure with tubular necrosis; I50.33 Acute on chronic diastolic (congestive) heart failure; J69.0 Pneumonitis due to inhalation of food and vomit; I63.9 Cerebral infarction, unspecified; G92.8 Other toxic encephalopathy; G93.1 Anoxic brain damage, not elsewhere classified; E87.2 Acidosis; B15.9 Hepatitis A without hepatic coma; E87.0 Hyperosmolality and hypernatremia; T82.855A Stenosis of coronary artery stent, initial encounter; K92.2 Gastrointestinal hemorrhage, unspecified; Z66 Do not resuscitate; Z51.5 Encounter for palliative care; I46.2 Cardiac arrest due to underlying cardiac condition; E87.5 Hyperkalemia; I49.01 Ventricular fibrillation; G89.29 Other chronic pain; E83.39 Other disorders of phosphorus metabolism; I48.0 Paroxysmal atrial fibrillation; E78.5 Hyperlipidemia, unspecified; K21.9 Gastro-esophageal reflux disease without esophagitis; Y71.3 Surgical instruments, materials and cardiovascular devices (including sutures) associated with adverse incidents; J44.9 Chronic obstructive pulmonary disease, unspecified; I25.10 Atherosclerotic heart disease of native coronary artery without angina pectoris; F32.A Depression, unspecified; F41.9 Anxiety disorder, unspecified; I11.0 Hypertensive heart disease with heart failure; M19.90 Unspecified osteoarthritis, unspecified site; M1A.9XX0 Chronic gout, unspecified, without tophus (tophi); E83.51 Hypocalcemia; I25.2 Old myocardial infarction; Z86.718 Personal history of other venous thrombosis and embolism; Z86.711 Personal history of pulmonary embolism; Z95.5 Presence of coronary angioplasty implant and graft; Z79.01 Long term (current) use of anticoagulants; Z79.02 Long term (current) use of antithrombotics/antiplatelets; Z79.82 Long term (current) use of aspirin; Z79.899 Other long term (current) drug therapy; Z87.891 Personal history of nicotine dependence; Z86.73 Personal history of transient ischemic attack (TIA), and cerebral infarction without residual deficits; Z93.3 Colostomy status; Z86.14 Personal history of Methicillin resistant Staphylococcus aureus infection; Z82.49 Family history of ischemic heart disease and other diseases of the circulatory system
CPT/HCPCS: 36415; 36600; 70450; 71045; 72125; 76770; 80048; 80053; 80061; 81001; 82140; 82272; 82330; 82533; 82805; 83605; 83735; 84100; 84132; 84145; 84450; 84460; 84484; 85025; 85027; 85610; 85730; 86706; 87040; 87070; 87086; 87205; 87340; 90935; 93005; 93306; 93458; 93880; 94002; 94003; 94640; 95816